=== PATIENT | female | born 1945 | race Caucasian/White ===

== ENCOUNTER → 2017-11-01 05:56 | Outpatient (CLI) | payer MEDICARE, SELFPAY ==
--- NOTE | 2017-11-01 15:13 | STRESSREP ---
Stress Test Report Date: 11/01/2017 Procedure: Pharmacologic stress nuclear imaging study Indications: Shortness of breath/dyspnea on exertion; palpitations Consent: Per the patient Procedure: The patient underwent pharmacologic (Regadenoson) evaluation with a peak heart rate of 77 bpm (51% predicted maximal heart rate) with a peak blood pressure 142/84 mmHg. The baseline ECG demonstrated normal sinus rhythm. The peak pharmacologic ECG demonstrated no obvious ECG changes. There was a rare PVC during recovery. There was no report of chest discomfort during pharmacologic infusion or recovery. The examination was discontinued secondary to completion of protocol. Impression: 1. Pharmacologic (Regadenoson) evaluation 2. Peak pharmacologic ECG with no obvious ECG changes 3. Rare PVC during recovery 4. Nuclear images pending Myocardial perfusion imaging study: Technique: The patient was injected with 11.9 mCi of technetium 99m Cardiolite and subsequently rest SPECT Cardiolite nuclear imaging was obtained in the horizontal long, vertical long, and short axis views. The patient underwent pharmacologic (Regadenoson) evaluation with a peak heart rate of 77 bpm (51% predicted maximal heart rate) with a peak blood pressure 142/84 mmHg area the patient was injected with 33.4 mCi of technetium 99m Cardiolite and subsequently stress SPECT Cardiolite nuclear imaging was obtained in the horizontal long, vertical long, and short axis views. A gated Cardiolite study at peak stress was obtained. Interpretation: Rest and stress SPECT Cardiolite nuclear imaging status post realignment, normalization, and attenuation correction, demonstrates the appearance of relative uniform tracer uptake and myocardial perfusion appearing within normal limits. There is end systolic thickening and brightening. The gated Cardiolite study demonstrates myocardial thickening and inward wall motion. The reported LVEF is 63%. Impression: 1. Rest and stress SPECT Cardiolite nuclear imaging demonstrates relative uniform tracer uptake and myocardial perfusion appearing within normal limits. 2. The gated Cardiolite study reports an LVEF of 63%. This note was generated with [employer] software. Every effort was made to ensure accuracy, however, computerized tie cutter mistakes may persist.
--- NOTE | 2017-11-01 15:22 | STRESSREP_ITS ---
Stress Test Report Date: 11/01/2017 Procedure: Pharmacologic stress nuclear imaging study Indications: Shortness of breath/dyspnea on exertion; palpitations Consent: Per the patient Procedure: The patient underwent pharmacologic (Regadenoson) evaluation with a peak heart rate of 77 bpm (51% predicted maximal heart rate) with a peak blood pressure 142 /84 mmHg. The baseline ECG demonstrated normal sinus rhythm. The peak pharmacologic ECG demonstrated no obvious ECG changes. There was a rare PVC during recovery. There was no report of chest discomfort during pharmacologic infusion or recovery. The examination was discontinued secondary to completion of protocol. Impression: 1. Pharmacologic (Regadenoson) evaluation 2. Peak pharmacologic ECG with no obvious ECG changes 3. Rare PVC during recovery 4. Nuclear images pending Myocardial perfusion imaging study: Technique: The patient was injected with 11.9 mCi of technetium 99m Cardiolite and subsequently rest SPECT Cardiolite nuclear imaging was obtained in the horizontal long, vertical long, and short axis views. The patient underwent pharmacologic (Regadenoson) evaluation with a peak heart rate of 77 bpm (51% predicted maximal heart rate) with a peak blood pressure 142/84 mmHg area the patient was injected with 33.4 mCi of technetium 99m Cardiolite and subsequently stress SPECT Cardiolite nuclear imaging was obtained in the horizontal long, vertical long, and short axis views. A gated Cardiolite study at peak stress was obtained. Interpretation: Rest and stress SPECT Cardiolite nuclear imaging status post realignment, normalization, and attenuation correction, demonstrates the appearance of relative uniform tracer uptake and myocardial perfusion appearing within normal limits. There is end systolic thickening and brightening. The gated Cardiolite study demonstrates myocardial thickening and inward wall motion. The reported LVEF is 63%. Impression: 1. Rest and stress SPECT Cardiolite nuclear imaging demonstrates relative uniform tracer uptake and myocardial perfusion appearing within normal limits. 2. The gated Cardiolite study reports an LVEF of 63%. This note was generated with [employer] software. Every effort was made to ensure accuracy, however, computerized shuttlecock assembler mistakes may persist.
== END ==
PROVIDERS: Family Provider Family Medicine; PCP Family Medicine; Visit Provider Internal Medicine Cardiovascular Disease
DX: R06.09 Other forms of dyspnea (principal); R00.2 Palpitations
CPT/HCPCS: 78452; 93017; A9500; A4216; J2785

== ENCOUNTER → 2017-11-28 08:31 | Outpatient (CLI) | payer MEDICARE, SELFPAY ==
--- NOTE | 2017-11-28 08:33 | HPBI_ITS ---
MAMMOGRAPHY - BILATERAL DIAGNOSTIC REASON FOR EXAM: Female, 71 years old. 4 month history of left breast pain at the 4 to 5:00 position of the left breast. Chronic right nipple inversion. PERTINENT HISTORY: TECHNIQUE: Digital bilateral breast aditya (3D mammographic acquisition) in the CC and MLO projections. 2-D mediolateral oblique (MLO) and craniocaudad (CC) views of both breasts were obtained. CAD: Full Field Digital Mammography with Computer Added Detection was performed. COMPARISON: Comparison is made with prior examination dated November 19, 2016 and November 18, 2015. FINDINGS: Breast Composition: There are scattered areas of fibroglandular density. There are no dominant masses or suspicious calcifications. Stable small calcified nodules in the left breast. Stable inversion of the right nipple. No other significant abnormalities are identified. There has been no significant change since the prior study. HPBI/DIAG MAMM W/CAD, BILAT IMPRESSION: Stable bilateral diagnostic mammogram. One year follow-up recommended. (A) ASSESSMENT CATEGORY: BIRADS Category 2: Benign. A letter regarding these results will be sent to the patient by the facility within 30 days. Approximately 10% of breast cancers are not detected by mammography. A normal mammogram should not delay biopsy of a clinically suspicious abnormality. Electronically Signed: Miguel Hightower MD at 10:55 EDT Tel [phone], Service support ,
--- NOTE | 2017-11-28 08:44 | US_ITS ---
STUDY: ULTRASOUND BREAST - LEFT REASON FOR EXAM: Female, 71 years old. Pain in the left breast. TECHNIQUE: Axial and longitudinal images of the LEFT breast were performed with a high resolution ultrasound transducer. COMPARISON: Comparison is made with prior mammogram done earlier today. FINDINGS: LEFT Breast: There is a 3 mm x 3 mm x 4 mm calcified nodule at the 3:00 in the breast at 3 cm from the nipple. Adjacent to this, there is a 2 mm x 2 mm x 3 mm calcified nodule. These correspond to the mammographic findings suggestive of calcified fibroadenomas. US/Breast Limited Unilateral IMPRESSION: 2 small calcified nodules are seen as described. Routine mammographic follow-up is recommended. ASSESSMENT CATEGORY: BIRADS Category 2: Benign. A letter regarding these results will be sent to the patient by the facility within 30 days. Electronically Signed: Miguel Hightower MD at 11:17 EDT Tel [phone], Service support ,
== END ==
PROVIDERS: Family Provider Family Medicine; PCP Family Medicine; Visit Provider Family Medicine
DX: N64.4 Mastodynia (principal); Z12.31 Encounter for screening mammogram for malignant neoplasm of breast
CPT/HCPCS: 76642; 77062; 77066; G0279

== ENCOUNTER 2018-02-07 14:24 | Inpatient (IN) | payer MEDICARE, SELFPAY ==
[2018-01-25 09:55] VITALS: BP 106/59; PULSE 64; RESP 16; TEMP 36.6; O2SAT 95; BMI 36.5
[2018-01-25 11:39] LABS: Hemoglobin 13.4 g/dl (12.0-15.0); Mean Corp Hgb Conc 31.9 g/gl (32-36); Mean Corpuscular Hgb 29.6 pg (27.0-32.0); Mean Corpuscular Volume 92.7 fL (81-99); Mean Platelet Vol. 10.5 fl (6.2-12.0); Platelet Count 292 K/mm3 (150-450); RBC Distribution Width CV 14.1 % (11.6-14.6); RBC Distribution Width SD 47.4 fl (35.1-43.9); Red Blood Count 4.53 M/mm3 (4.2-5.4); White Blood Count 9.4 K/mm3 (4.4-11.0)
[2018-01-25 11:40] LABS: Scan Indicated on CBC? Y/N NO
[2018-01-25 12:06] LABS: Anion Gap 7 (5-15); BUN 20 mg/dL (7-18); BUN/Creat Ratio 25.7 RATIO (10-20); Calcium,Total 9.6 mg/dL (8.5-10.1); Chloride 106 mmol/L (98-107); Creatinine, Serum 0.78 mg/dL (0.55-1.02); EST Glomerular Filtration Rate 78 mL/min (>60); Est Glom Filt Rate - Afr Amer 94 mL/min (>60); Estimated Creatinine Clearance 42.68 ml/min; Glucose 94 mg/dL (74-106); Potassium 4.4 mmol/L (3.5-5.1); Sodium Level 142 mmol/L (136-145)
--- NOTE | 2018-02-01 12:51 | CASEMGMT ---
SW called pt as pt is scheduled for surgery w/Dr. Rogers on 02/07/18, right knee replacement. Pt at present lives home w/ in a one story home, a few steps to get into the home. Pt is independent with ADL's, does not use any DME at present. Pt does have a walker for after surgery. Pt plans to return home w/the assist of her at discharge, and attend outpt PT at [facility]. Pt's will take her to appts. SW/MESERET will check in w/pt once here, postoperatively to confirm discharge plan. SIDNEY Mitchell, [employer]
[2018-02-07] VITALS (8 sets, daily range): BP systolic 125–152; BP diastolic 54–72; PULSE 65–74; RESP 14–18; TEMP 35.9–37.2; O2SAT 97–99; BMI 36.5
[2018-02-07] MEDS: oxyCODONE HCl Cr 10 MG Tablet PO (10:35)
[2018-02-07] MEDS: Celecoxib 200 MG Capsule 400 MG PO (10:35)
[2018-02-07] MEDS: Acetaminophen 500 MG Tablet 1000 MG PO ×2 (10:36→22:15)
[2018-02-07] MEDS: Cefazolin 2 GM in 0.9% Normal Saline 100 ML IV (13:12)
--- NOTE | 2018-02-07 15:07 | RAD_ITS ---
STUDY: X-RAY - RIGHT KNEE REASON FOR EXAM: Female, 72 years old. Right knee postop TECHNIQUE: 2 view(s) of the knee. COMPARISON: None. FINDINGS: There is a 3 part right knee arthroplasty. There is underlying subcutaneous gas and postoperative change. RAD/Knee 1 or 2 Views IMPRESSION: Postoperative change status post three-part right knee arthroplasty. Electronically Signed: Aditi Camarillo MD at 15:20 EDT Tel , Service support ,
[2018-02-07] MEDS: Lactated Ringers 1,000 ML 125 ML IV ×2 (15:33→23:51)
[2018-02-07] MEDS: Aspirin 325 MG Tablet PO (17:27)
[2018-02-07] MEDS: Cefazolin 1 GM/50 ML BAG IV (22:15)
[2018-02-07] MEDS: Celecoxib 200 MG Capsule PO (22:15)
[2018-02-07] MEDS: Senna/Docusate Sodium 1 Tablet 2 TABLET PO (22:15)
[2018-02-08 02:00] VITALS: BP 103/52; PULSE 63; RESP 16; TEMP 36.8; O2SAT 98
[2018-02-08] MEDS: Cefazolin 1 GM/50 ML BAG IV (05:51)
[2018-02-08] MEDS: Acetaminophen 500 MG Tablet 1000 MG PO (05:51)
[2018-02-08 06:03] LABS: Hematocrit 37.5 % (37-47); Hemoglobin 11.9 g/dl (12.0-15.0); Mean Corp Hgb Conc 31.7 g/gl (32-36); Mean Corpuscular Hgb 29.5 pg (27.0-32.0); Mean Corpuscular Volume 93.1 fL (81-99); Mean Platelet Vol. 10.4 fl (6.2-12.0); Platelet Count 244 K/mm3 (150-450); RBC Distribution Width CV 14.5 % (11.6-14.6); RBC Distribution Width SD 49.2 fl (35.1-43.9); Red Blood Count 4.03 M/mm3 (4.2-5.4); White Blood Count 11.6 K/mm3 (4.4-11.0)
[2018-02-08 06:11] LABS: Scan Indicated on CBC? Y/N NO
[2018-02-08 06:35] LABS: Anion Gap 9 (5-15); BUN 14 mg/dL (7-18); BUN/Creat Ratio 20.1 RATIO (10-20); Calcium,Total 8.9 mg/dL (8.5-10.1); Chloride 108 mmol/L (98-107); EST Glomerular Filtration Rate 88 mL/min (>60); Est Glom Filt Rate - Afr Amer 107 mL/min (>60); Estimated Creatinine Clearance 42.68 ml/min; Glucose 94 mg/dL (74-106); Potassium 3.9 mmol/L (3.5-5.1); Sodium Level 141 mmol/L (136-145)
--- NOTE | 2018-02-08 07:43 | PCM.PN.ORT ---
Subjective: Patient is resting comfortably and bedside during exam. She is starting to have some pain in the right knee. She just got up and went to the restroom and is having some nausea without vomiting. She has not had any anti-emetics. She currently denies chest pain, calf pain, shortness of breath, dizziness. She would like to consider a discharge to home later today if she is moving well with physical therapy, having adequate pain control, and is able to diminish the nausea Objective: Patient is alert and oriented ?3. No acute distress at rest. Breathing easily without respiratory distress. Inspection of dressing is with minimal bloody drainage. Negative Kari bilaterally. Without signs of DVT. Patient able to actively plantar and dorsiflex bilateral feet against resistance. Pedal pulses present and equal bilaterally. Patient is neurovascularly intact. - Physical Exam Vital Signs Temp Pulse Resp BP Pulse Ox 98.2 F 63 16 103/52 L 98 02/08/18 02:00 02/08/18 02:00 02/08/18 02:00 02/08/18 02:00 02/08/18 02:00 Oxygen Delivery Method Room Air Weight: 93.44 kg Body Mass Index (BMI) 36.5 Intake and Output for Last 24 Hours 02/06/18 02/07/18 02/08/18 23:59 23:59 23:59 Intake Total 3419 / 3419 767 / 767 Output Total 1350 / 1350 500 / 500 Balance 2069 / 2069 267 / 267 Laboratory Tests Past 24 Hrs 02/08/18 02/08/18 05:25 05:25 WBC 11.6 H RBC 4.03 L Hgb 11.9 L Hct 37.5 MCV 93.1 MCH 29.5 MCHC 31.7 L RDW 14.5 RDW Differential 49.2 H Plt Count 244 MPV 10.4 Sodium 141 Potassium 3.9 Chloride 108 H Carbon Dioxide 24.0 Anion Gap 9 BUN 14 Creatinine 0.70 Estim Creat Clear Calc 42.68 Est GFR (MDRD) Af Amer 107 Est GFR (MDRD) Non-Af 88 BUN/Creatinine Ratio 20.1 H Glucose 94 Calcium 8.9 Medical Necessity - Tobacco Use Smoking Status: Never smoker Assessment/Plan 1. Status post right TKA; postop day #1 2. OxyIR and Tylenol for pain control 3. DVT prophylaxis; bilateral teds, SCDs and begin aspirin therapy 4. Begin PT/OT; weightbearing as tolerated with a walker 5. Leukocytosis; afebrile, without acute signs of infection. Likely resulting from Decadron versus acute stress response. Anticipate resolution over the next couple days. Continue to monitor. 6. Encourage incentive spirometry 7. Discharge planning with case management. Possible discharge to home today if patient is having adequate pain control, working well with physical therapy, and nausea is controlled.
[2018-02-08] MEDS: oxyCODONE 5 MG Tablet PO (07:50)
[2018-02-08] MEDS: Aspirin 325 MG Tablet PO (07:50)
[2018-02-08] MEDS: 0.9% NaCl Peripheral Flush Adult/Peds IV (07:51)
[2018-02-08] MEDS: Ondansetron 4 MG/2 ML Vial IV (07:51)
--- NOTE | 2018-02-08 07:52 | PCM.DC.TKR ---
Discharge Diet: No Restrictions Discharge Activity: May Not Drive, May not drive while taking narcotic pain medications., Use Walker May shower in (days): 1 - Okay to shower over Mepilex dressing Ice area for (Minutes): 20 - every hour while awake. Weight Bearing Status: Weight bearing as tolerated Elevate: Operative Extremity Additional Activity Instructions:: Wear elastic stockings for 2 weeks after your surgery. See postoperative pink sheet Call your doctor if your incision/area has: Continuous Slow Oozing, Sudden Increased Bleeding, Increased Pain/ Swelling, Increased Redness, Foul Smelling Discharge Call your doctor if you observe: Fever of 101 or Higher, Coldness, Increased Pain, Numbness or Tingling, Change in Color, Chest pain, Calf discomfort, Uncontrolled pain Remove Dressing in (days):: 5 Cleanse incision/area with: Soap & Water Additional Dressing/Incision Instructions:: See postoperative pink sheet Allergies/Adverse Reactions: Allergies ciprofloxacin [From Cipro] Allergy (Verified 01/25/18 09:52) Hives ciprofloxacin HCl [From Cipro] Allergy (Verified 01/25/18 09:52) Hives erythromycin base [Erythromycin Base] Adverse Reaction (Verified 01/25/18 09:52) Vomiting hydromorphone HCl [From Dilaudid] Adverse Reaction (Verified 01/25/18 09:52) Other ANXIETY latex Adverse Reaction (Verified 01/25/18 09:52) Rash prochlorperazine edisylate [From Compazine] Adverse Reaction (Verified 01/25/18 09:52) Other ANXIETY prochlorperazine maleate [From Compazine] Adverse Reaction (Verified 01/25/18 09:52) Other Medications to take at Discharge Atenolol [Tenormin (beta juan)] 50 mg PO DAILY 06/16/13 Multivitamins,Ther W-Minerals [Multivitamin With Minerals] 1 tablet PO DAILY 05/14/14 Phenazopyridine [Pyridium] 200 mg PO DAILY 05/14/14 Cyanocobalamin [Vitamin B12] 1,000 mcg PO DAILY@0800 07/02/16 Escitalopram Oxalate [Lexapro] 10 mg PO DAILY 07/02/16 Gluc/Yemi-MSM#1/C/Reji/Ruy/Bor [Glucosamine-Chondroitin Caplet] 1 each PO DAILY 07/02/16 Sumatriptan Succinate [Imitrex] 100 mg PO .X1 PRN PRN 07/02/16 Acetaminophen [Tylenol] 1,000 mg PO Q8 #60 tab 02/08/18 Aspirin 325 mg PO BIDCM #28 tab 02/08/18 Ondansetron HCl [Zofran] 4 mg PO Q6H PRN PRN #21 tab 02/08/18 Oxycodone [Oxyir] 5 - 10 mg PO Q4H PRN PRN 7 Days #56 tablet 02/08/18 Senna/Docusate Sodium [Senokot-S] 2 tab PO BID #30 tab 02/08/18 The following prescriptions were given: Oxycodone [Oxyir] 5 - 10 mg PO Q4H PRN PRN 7 Days #56 tablet PRN Reason: Mod-Severe Pain (4-06/21) Ondansetron HCl [Zofran] 4 mg PO Q6H PRN PRN #21 tab PRN Reason: Nausea Acetaminophen [Tylenol] 1,000 mg PO Q8 #60 tab Aspirin 325 mg PO BIDCM #28 tab Senna/Docusate Sodium [Senokot-S] 2 tab PO BID #30 tab Primary Care Physician: Flaco Lee MD [Primary Care Provider] -
[2018-02-08 08:00] VITALS: BP 138/43; PULSE 76; RESP 16; TEMP 36.8; O2SAT 99
[2018-02-08] MEDS: Cyanocobalamin 500 MCG Tablet 1000 MCG PO (08:03)
[2018-02-08] MEDS: Famotidine 20 MG Tablet PO (08:04)
[2018-02-08] MEDS: Celecoxib 200 MG Capsule PO (08:04)
[2018-02-08] MEDS: Senna/Docusate Sodium 1 Tablet 2 TABLET PO (08:04)
[2018-02-08] MEDS: Atenolol 50 MG Tablet PO (08:04)
--- NOTE | 2018-02-08 09:46 | CASEMGMT ---
[facility] Face to Face with patient for initial transition planning/care coordination assessment. RN MESERET introduced self and role at [facility]. Patient sitting in chair, alert and oriented, spouse in room. Patient willing to participate in assessment and is able to answer all questions appropriately. Care providers, pharmacy, and demographics verified. See link attached. Patient wishes to discharge home and is setup with [facility] for outpatient therapy with providing transportation. Patient states she has no further needs or concerns at this time. CM to follow for discharge planning needs that may arise. Disposition Plan: Patient to discharge home with outpatient therapy, family support, and follow-up plans in place.
[2018-02-08 14:37] VITALS: BP 122/44; PULSE 64; RESP 16; TEMP 36.6; O2SAT 99
== END 2018-02-08 15:18 | disposition home or self-care (01) | DRG 470 ==
PROVIDERS: Admitting Provider Orthopaedic Surgery; Family Provider Family Medicine; PCP Family Medicine; Visit Provider Orthopaedic Surgery
PROC: 0SRC0J9 Replacement of Right Knee Joint with Synthetic Substitute, Cemented, Open Approach (ICD-10-PCS; CPT 27447; principal; 2018-02-07 12:10)
DX: M17.11 Unilateral primary osteoarthritis, right knee (principal); M79.7 Fibromyalgia; I34.1 Nonrheumatic mitral (valve) prolapse; K57.90 Diverticulosis of intestine, part unspecified, without perforation or abscess without bleeding; F32.9 Major depressive disorder, single episode, unspecified
CPT/HCPCS: 36415; 73560; 80048; 85027; 87081; 97110; 97116; 97162; 97165; 97535; C1776; J7120; A4216; J2405

== ENCOUNTER 2018-07-06 02:56 | Observation (INO) | payer MEDICARE, SELFPAY ==
[2018-07-06] VITALS (7 sets, daily range): BP systolic 120–152; BP diastolic 50–67; PULSE 75–88; RESP 16–24; TEMP 36.6–37.7; O2SAT 95–97; BMI 36.2; BMI 35.4
--- NOTE | 2018-07-06 03:20 | ED.DCSUM_ITS ---
- ER Visit Summary Date of Service: 07/06/18 Chief Complaint: Diarrhea History of Present Illness: The patient is a 72 F with diarrhea yesterday morning that improved after taking some diarrhea pills. She states that 8 PM last evening her diarrhea returned. She had multiple episodes and difficulty making it to the bathroom in time. She does report abdominal cramping as well. She just finished a 10-day course of Augmentin for URI symptoms. Physical Examination: Vital signs unremarkable. Patient's lying in bed. She appears somewhat pale. Heart is regular rate and rhythm. Lung sounds are clear. Abdomen is soft with mild diffuse tenderness. Active bowel sounds are noted throughout. There is no guarding or rebound. Test Results: CBC was a white count of 16.3 with 88% neutrophils. Chemistry studies unremarkable. LFTs normal. Emergency Department Course and Treatment: Patient is given IV fluids. On repeat examination patient remains somewhat pale. While in the room on repeat exam she urgently needs to go the restroom and is currently giving a stool sample. Patient's has history of C. difficile and states the stool smells like when he had C. difficile in the past. At this time patient be a dmitted for hydration and final stool studies. Treatment Plan: [] Disposition: Admit Impression: Diarrhea, suspect C. difficile This note was generated with [employer] dictation software. It may contain incorrect words, spelling, and punctuation that were not noted in review of the chart prior to signing ED Disposition - Plan for ED Patient: Chief Complaint: Nausea/Vomiting/Diarrhea Referrals: Flaco Lee MD [Primary Care Provider] -
[2018-07-06] MEDS: 0.9% Normal Saline 1,000 ML 1000 ML IV (03:28)
[2018-07-06 03:43] LABS: Absolute Neutrophil Count 14.3 X10^3/uL (2.0-7.7); Basophil# 0.03 X10^3/uL; Basophil% 0.2 % (0-1); Eosinophil# 0.17 X10^3/uL; Hematocrit 39.1 % (37-47); Hemoglobin 12.4 g/dl (12.0-15.0); Lymphocyte % 4.9 % (19-41); Mean Corp Hgb Conc 31.7 g/gl (32-36); Mean Corpuscular Hgb 29.4 pg (27.0-32.0); Mean Corpuscular Volume 92.7 fL (81-99); Mean Platelet Vol. 10.4 fl (6.2-12.0); Monocyte% 5.5 % (0-10); Neutrophil # 14.33 X10^3/uL (2.7-7.7); Neutrophil % 88.3 % (47-70); Platelet Count 274 K/mm3 (150-450); RBC Distribution Width CV 14.4 % (11.6-14.6); RBC Distribution Width SD 48.5 fl (35.1-43.9); Red Blood Count 4.22 M/mm3 (4.2-5.4); White Blood Count 16.3 K/mm3 (4.4-11.0)
[2018-07-06 03:54] LABS: POSITIVE COUNT NO; POSITIVE DIFFERENTIAL NO; POSITIVE MORPHOLOGY NO
[2018-07-06 03:56] LABS: AST(SGOT) 17 U/L (15-37); Alanine Aminotransfer ALT/SGPT 23 U/L (13-56); Albumin, Serum 3.2 g/dL (3.2-5.0); Alkaline Phosphatase 85 U/L (45-117); Anion Gap 7 (5-15); BUN 21 mg/dL (7-18); BUN/Creat Ratio 30.9 RATIO (10-20); Bilirubin, Direct 0.15 mg/dL (0.00-0.30); Calcium,Total 9.1 mg/dL (8.5-10.1); Chloride 106 mmol/L (98-107); Creatinine, Serum 0.68 mg/dL (0.55-1.02); EST Glomerular Filtration Rate 91 mL/min (>60); Est Glom Filt Rate - Afr Amer 110 mL/min (>60); Estimated Creatinine Clearance 44.56 ml/min; Glucose 134 mg/dL (74-106); Potassium 3.9 mmol/L (3.5-5.1); Protein, Total 7.2 g/dL (6.4-8.2); Sodium Level 141 mmol/L (136-145)
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
[2018-07-06 06:44] LABS: Magnesium 2.1 mg/dL (1.6-2.6)
[2018-07-06] MEDS: 0.9% Normal Saline 1,000 ML 150 ML IV ×2 (08:23→13:55)
[2018-07-06] MEDS: Atenolol 50 MG Tablet PO (08:23)
[2018-07-06] MEDS: Enoxaparin 40 MG/0.4 ML Syringe SC (08:24)
[2018-07-06] MEDS: Phenazopyridine 95 MG Tablet 190 MG PO (08:24)
--- NOTE | 2018-07-06 08:41 | PCM.HOSP.N ---
Hospitalist Note She is a 72 osteoarthritis, fibromyalgia, mitral valve prolapse, history of diverticulitis, anxiety depression, migraines, chronic dysuria, who recently had a 10-day course of Augmentin for an upper URI and had a couple episodes of copious foul-smelling diarrhea. Patient still has a leukocytosis however C. difficile is negative, feels like she is improving, plan to increase diet, use oral Zofran and will use some Questran to slow diarrhea for about 3 doses. Patient is already on lactobacillus. Patient will get PT OT and will try to discharge patient tomorrow. Patient agrees with treatment plan Chart is dictated with primer charging tool setter software. Errors may occur in dictation that may change providers meaning. This note was generated with [employer] dictation software. It may contain incorrect words, spelling, and punctuation that were not noted in checking the note before signing.
[2018-07-06] MEDS: Pantoprazole Sodium 20 MG Tablet PO (11:22)
[2018-07-06] MEDS: Menthol/Lanolin/Calamine/Znox 113 GM Tube 1 APPLIC TOPICAL ×4 (11:22→23:28)
[2018-07-06] MEDS: Cholestyramine/Sucrose 4 GM/PACKET PO (18:47)
[2018-07-07 02:00] VITALS: BP 134/78; PULSE 77; RESP 16; TEMP 37.3; O2SAT 97
[2018-07-07] MEDS: 0.9% Normal Saline 1,000 ML 150 ML IV ×2 (02:54→03:00)
[2018-07-07 06:21] LABS: Absolute Neutrophil Count 5.3 X10^3/uL (2.0-7.7); Basophil# 0.03 X10^3/uL; Basophil% 0.3 % (0-1); Eosinophil# 0.62 X10^3/uL; Eosinophils% 7.2 % (0-5); Hematocrit 32.7 % (37-47); Hemoglobin 10.3 g/dl (12.0-15.0); Lymphocyte % 17.4 % (19-41); Mean Corp Hgb Conc 31.5 g/gl (32-36); Mean Corpuscular Hgb 29.8 pg (27.0-32.0); Mean Corpuscular Volume 94.5 fL (81-99); Mean Platelet Vol. 11.2 fl (6.2-12.0); Monocyte% 13.9 % (0-10); Neutrophil # 5.28 X10^3/uL (2.7-7.7); Neutrophil % 61.1 % (47-70); Platelet Count 225 K/mm3 (150-450); RBC Distribution Width CV 14.7 % (11.6-14.6); RBC Distribution Width SD 47.9 fl (35.1-43.9); Red Blood Count 3.46 M/mm3 (4.2-5.4); White Blood Count 8.6 K/mm3 (4.4-11.0)
[2018-07-07 06:25] LABS: ALB/GLOB Ratio 0.7 RATIO (0.9-2.4); AST(SGOT) 20 U/L (15-37); Alanine Aminotransfer ALT/SGPT 28 U/L (13-56); Albumin, Serum 2.5 g/dL (3.2-5.0); Alkaline Phosphatase 70 U/L (45-117); Anion Gap 7 (5-15); BUN 8 mg/dL (7-18); BUN/Creat Ratio 14.3 RATIO (10-20); Calcium,Total 8.2 mg/dL (8.5-10.1); Chloride 112 mmol/L (98-107); Creatinine, Serum 0.56 mg/dL (0.55-1.02); EST Glomerular Filtration Rate 114 mL/min (>60); Est Glom Filt Rate - Afr Amer 137 mL/min (>60); Estimated Creatinine Clearance 44.56 ml/min; Globulin 3.4 g/dL (2.2-4.2); Glucose 96 mg/dL (74-106); Potassium 3.4 mmol/L (3.5-5.1); Protein, Total 5.9 g/dL (6.4-8.2); Sodium Level 144 mmol/L (136-145)
[2018-07-07 06:26] LABS: POSITIVE COUNT NO; POSITIVE DIFFERENTIAL NO; POSITIVE MORPHOLOGY NO
[2018-07-07 06:32] LABS: Phosphorus 2.7 mg/dL (2.5-4.9)
[2018-07-07] MEDS: Cholestyramine/Sucrose 4 GM/PACKET PO (06:53)
[2018-07-07 07:45] VITALS: BP 144/69; PULSE 76; RESP 18; TEMP 36.7; O2SAT 99
--- NOTE | 2018-07-07 08:08 | DCINST_ITS ---
- Discharge Diagnoses Current Active Problems: Current Active and Chronic Problems Diarrhea (Acute) Anxiety and depression (Chronic) Diverticulosis (Chronic) Fibromyalgia (Chronic) You will use the following diet at home:: Regular - Recommend multiple small meals 5 times a day Your food should be the consistency of: Regular Your liquids should be the consistency of: Regular/Thin Discharge Activity: Return to Normal Activity Call your doctor if you observe: Fever of 101 or Higher, Shortness of breath, Fainting spells, Chest pain, Calf discomfort Allergies/Adverse Reactions: Allergies ciprofloxacin [From Cipro] Allergy (Verified 01/25/18 09:52) Hives ciprofloxacin HCl [From Cipro] Allergy (Verified 01/25/18 09:52) Hives erythromycin base [Erythromycin Base] Adverse Reaction (Verified 01/25/18 09:52) Vomiting hydromorphone HCl [From Dilaudid] Adverse Reaction (Verified 01/25/18 09:52) Other ANXIETY latex Adverse Reaction (Verified 01/25/18 09:52) Rash prochlorperazine edisylate [From Compazine] Adverse Reaction (Verified 01/25/18 09:52) Other ANXIETY prochlorperazine maleate [From Compazine] Adverse Reaction (Verified 01/25/18 09:52) Other Medications to take at Discharge Atenolol [Tenormin (beta juan)] 50 mg PO DAILY 06/16/13 Multivitamins,Ther W-Minerals [Multivitamin With Minerals] 1 tablet PO DAILY 05/14/14 Phenazopyridine [Pyridium] 200 mg PO DAILY 05/14/14 Escitalopram Oxalate [Lexapro] 10 mg PO DAILY 07/02/16 Gluc/Yemi-MSM#1/C/Reji/Ruy/Bor [Glucosamine-Chondroitin Caplet] 1 each PO DAILY 07/02/16 Sumatriptan Succinate [Imitrex] 100 mg PO .X1 PRN PRN 07/02/16 Acetaminophen [Tylenol] 1,000 mg PO Q8 #60 tab 02/08/18 Cholecalciferol (Vitamin D3) [Vitamin D3] 1,000 unit PO DAILY 07/06/18 Omeprazole [Prilosec] 20 mg PO DAILY 07/06/18 Wheat Dextrin [Benefiber] 1 each PO QHS 07/06/18 Cholestyramine/Aspartame [Cholestyramine Light Packet] 4 gm PO BID PRN PRN #4 powd.pack 07/07/18 Lactobacillus Acidophilus [Acidophilus] 1 tablet PO 4X/DAY #30 tablet 07/07/18 The following prescriptions were given: Cholestyramine/Aspartame [Cholestyramine Light Packet] 4 gm PO BID PRN PRN #4 powd.pack PRN Reason: Diarrhea Lactobacillus Acidophilus [Acidophilus] 1 tablet PO 4X/DAY #30 tablet Primary Care Physician: Flaco Lee MD [Primary Care Provider] - Please follow up with your Primary Care Physician in: 1-2 weeks Test Results: Test results from this visit will be discussed in further detail at your follow- up appointment, if applicable. Proposed Discharge Date: 07/07/18 - after kcl
--- NOTE | 2018-07-07 08:08 | PCM.DC.SUM ---
Discharge Date and Diagnosis - Problem List Patient Problems: Active and Suspected Problems Diarrhea (Acute) Date of Admission: 07/06/18 Date of Discharge: 07/07/18 - Primary Discharge Diagnosis Active and Suspected Problems Diarrhea (Acute) - Secondary Discharge Diagnosis Chronic Problems Anxiety and depression (Chronic) Diverticulosis (Chronic) Fibromyalgia (Chronic) Mitral valve prolapse syndrome (Chronic) Dysuria (Chronic) Migraine (Chronic) Hospital Course and Treatment Patient is a 72-year-old white female with osteoarthritis, fibromyalgia, mitral valve prolapse, history of diverticulitis, anxiety depression, migraines, chronic dysuria, who recently had a 10-day course of Augmentin for an upper URI and had a couple episodes of copious foul-smelling diarrhea. C. difficile was negative, culture for stool was negative, patient was given several doses of Questran and diarrhea has stopped. Patient is still having large amount of gas, patient is recommended to continue with a regular diet, take a probiotic, will give some Questran in case patient has continued diarrhea home. Patient's potassium is slightly low will give several doses of p.o. potassium before discharge. Patient to follow-up with PCP as an outpatient in 1-2 weeks. Patient most likely had diarrhea associated with antibiotic use, versus a viral gastroenteritis, no signs or symptoms of diverticulitis, leukocytosis resolved on second day most likely secondary to stress-induced. Medications reviewed with the patient. Risks, benefits, alternatives, side effects, potential complications and dangers of medications discussed. Patient wishes to utilize these agents despite risk. A signed medical consent/advisement form regarding narcotic medications and a side medication agreement are located in the patient's chart. Chart is dictated with geographic information systems engineer software. Errors may occur in dictation that may change providers meaning. This note was generated with [employer] dictation software. It may contain incorrect words, spelling, and punctuation that were not noted in checking the note before signing. Operations: None Procedures: None Summary of Care Provided: The patient is a 72 year old F [] Patient Problems: Active and Suspected Problems Diarrhea (Acute) Subjective: Patient's diarrhea has stopped, is able to tolerate diet has no new complaints. - Physical Exam General: Alert, Oriented x3, Cooperative HEENT: Atraumatic, PERRLA Oral: Moist Mucosa, No Gingival or Mucosal Lesions/ Ulcerations Neck: Supple, No JVD, Trachea Midline Lungs: Clear to auscultation, Normal air movement, No rhonchi Cardiovascular: Regular rate, Regular Rhythm, Normal S1, Normal S2 Abdomen: Bowel Sounds Present, Soft, Non Tender, Non-Distended, No Hepato-splenomegaly Extremities: No clubbing, No cyanosis, No edema Skin: No rashes, No breakdown Musculoskeletal: No Tenderness to Palpation of Joints or Extremities, No Muscle Wasting Lymphatic: No Cervical, Supraclavicular, or Inguinal Adenopathy Neurological: Cranial nerves II-XII grossly intact, Neuro grossly intact Psych/Mental Status: Normal Affect, Appropriate, Agitated Vital Signs Temp Pulse Resp BP Pulse Ox 98.1 F 76 18 144/69 H 99 07/07/18 07:45 07/07/18 07:45 07/07/18 07:45 07/07/18 07:45 07/07/18 07:45 Oxygen Delivery Method Room Air Weight: 93.468 kg Body Mass Index (BMI) 35.4 Intake and Output for Last 24 Hours 07/05/18 07/06/18 07/07/18 23:59 23:59 23:59 Intake Total 2907 / 2907 2467 / 2467 Balance 2907 / 2907 2467 / 2467 Microbiology Past 72 Hours 07/06/18 03:55 Enteric Bacteriology - Final Stool 07/06/18 03:55 C. difficile DNA Amplification - Final Stool 07/06/18 03:55 Stool Lactoferrin - Final Stool Laboratory Tests Past 24 Hrs 07/07/18 07/07/18 07/07/18 05:44 05:44 05:44 WBC 8.6 RBC 3.46 L Hgb 10.3 L Hct 32.7 L MCV 94.5 MCH 29.8 MCHC 31.5 L RDW 14.7 H RDW Differential 47.9 H Plt Count 225 MPV 11.2 Immature Gran % (Auto) 0.100 Neut % (Auto) 61.1 Lymph % (Auto) 17.4 L [place] % (Auto) 13.9 H Eos % (Auto) 7.2 H Baso % (Auto) 0.3 Absolute Neuts (auto) 5.3 Absolute Lymphs (auto) 1.50 Total Counted Not Reportable Sodium 144 Potassium 3.4 L Chloride 112 H Carbon Dioxide 25.0 Anion Gap 7 BUN 8 Creatinine 0.56 Estim Creat Clear Calc 44.56 Est GFR (MDRD) Af Amer 137 Est GFR (MDRD) Non-Af 114 BUN/Creatinine Ratio 14.3 Glucose 96 Calcium 8.2 L Phosphorus 2.7 Magnesium 2.0 Total Bilirubin 0.40 AST 20 ALT 28 Alkaline Phosphatase 70 Total Protein 5.9 L Albumin 2.5 L Globulin 3.4 Albumin/Globulin Ratio 0.7 L Discharge Diet: No Restrictions - Low-sodium diet 5 meals small a day Discharge Activity: Return to Normal Activity Call your doctor if you observe: Fever of 101 or Higher, Shortness of breath, Fainting spells, Chest pain, Calf discomfort Home Medications: Medications to take at Discharge Atenolol [Tenormin (beta juan)] 50 mg PO DAILY 06/16/13 Multivitamins,Ther W-Minerals [Multivitamin With Minerals] 1 tablet PO DAILY 05/14/14 Phenazopyridine [Pyridium] 200 mg PO DAILY 05/14/14 Escitalopram Oxalate [Lexapro] 10 mg PO DAILY 07/02/16 Gluc/Yemi-MSM#1/C/Reji/Ruy/Bor [Glucosamine-Chondroitin Caplet] 1 each PO DAILY 07/02/16 Sumatriptan Succinate [Imitrex] 100 mg PO .X1 PRN PRN 07/02/16 Acetaminophen [Tylenol] 1,000 mg PO Q8 #60 tab 02/08/18 Cholecalciferol (Vitamin D3) [Vitamin D3] 1,000 unit PO DAILY 07/06/18 Omeprazole [Prilosec] 20 mg PO DAILY 07/06/18 Wheat Dextrin [Benefiber] 1 each PO QHS 07/06/18 Cholestyramine/Aspartame [Cholestyramine Light Packet] 4 gm PO BID PRN PRN #4 powd.pack 07/07/18 Lactobacillus Acidophilus [Acidophilus] 1 tablet PO 4X/DAY #30 tablet 07/07/18 Following Prescrptions Were Given to Patient: Cholestyramine/Aspartame [Cholestyramine Light Packet] 4 gm PO BID PRN PRN #4 powd.pack PRN Reason: Diarrhea Lactobacillus Acidophilus [Acidophilus] 1 tablet PO 4X/DAY #30 tablet Primary Care Physician: Flaco Lee MD [Primary Care Provider] - Please follow up with your Primary Care Physician in: 1-2 weeks Disposition: Home Patient Condition:: Good Medical Necessity - Tobacco Use Smoking Status: Never smoker Tobacco Use: Non-smoker Meaningful Use Info Meaningful Use Diagnoses (Choose all that apply): None applicable Code Visit Inpatient E&M: 73234 Disch Hosp
[2018-07-07] MEDS: Acetaminophen 325 MG Tablet 650 MG PO (08:44)
[2018-07-07] MEDS: Pantoprazole Sodium 20 MG Tablet PO (09:36)
[2018-07-07] MEDS: Phenazopyridine 95 MG Tablet 190 MG PO (09:36)
[2018-07-07] MEDS: Atenolol 50 MG Tablet PO (09:36)
[2018-07-07] MEDS: Menthol/Lanolin/Calamine/Znox 113 GM Tube 1 APPLIC TOPICAL (09:37)
== END 2018-07-07 10:26 | disposition home or self-care (01) ==
LOC: ED 04:34 → MS3 05:15 → ED 05:41 → MS3 06:59
PROVIDERS: Admitting Provider Family Medicine; Emergency Provider Emergency Medicine; Family Provider Family Medicine; PCP Family Medicine; Visit Provider Internal Medicine
DX: R19.7 Diarrhea, unspecified (principal); M79.7 Fibromyalgia; K57.90 Diverticulosis of intestine, part unspecified, without perforation or abscess without bleeding; F41.9 Anxiety disorder, unspecified; F32.9 Major depressive disorder, single episode, unspecified; Z79.899 Other long term (current) drug therapy; G43.909 Migraine, unspecified, not intractable, without status migrainosus; M19.90 Unspecified osteoarthritis, unspecified site; K21.9 Gastro-esophageal reflux disease without esophagitis; R30.0 Dysuria; E66.9 Obesity, unspecified; Z68.35 Body mass index [BMI] 35.0-35.9, adult; Z71.3 Dietary counseling and surveillance
CPT/HCPCS: 36415; 80048; 80053; 80076; 83630; 83735; 84100; 85025; 87177; 87209; 87493; 87506; 96360; 96361; 96372; 97802; 99218; 99282; J7030; A4216; G0378

== ENCOUNTER 2018-07-08 23:45 | Observation (INO) | payer MEDICARE, SELFPAY ==
[2018-07-08 23:45] VITALS: BP 162/71; PULSE 70; RESP 16; TEMP 36.6; O2SAT 96; BMI 32.5
[2018-07-09] VITALS (9 sets, daily range): BP systolic 124–155; BP diastolic 60–75; PULSE 67–78; RESP 16–18; TEMP 36.7–37.2; O2SAT 94–98; BMI 36.3
[2018-07-09] MEDS: 0.9% Normal Saline 1,000 ML 1000 ML IV (00:17)
[2018-07-09 01:00] LABS: Absolute Neutrophil Count 8.6 X10^3/uL (2.0-7.7); Basophil# 0.07 X10^3/uL; Basophil% 0.6 % (0-1); Eosinophil# 0.49 X10^3/uL; Eosinophils% 4.1 % (0-5); Hematocrit 36.8 % (37-47); Lymphocyte % 12.6 % (19-41); Mean Corp Hgb Conc 32.6 g/gl (32-36); Monocyte# 1.29 X10^3/uL; Monocyte% 10.8 % (0-10); Neutrophil # 8.56 X10^3/uL (2.7-7.7); Neutrophil % 71.6 % (47-70); Platelet Count 87 K/mm3 (150-450); RBC Distribution Width CV 14.1 % (11.6-14.6); RBC Distribution Width SD 46.8 fl (35.1-43.9)
[2018-07-09 01:01] LABS: POSITIVE COUNT NO; POSITIVE DIFFERENTIAL NO; POSITIVE MORPHOLOGY NO
[2018-07-09 01:16] LABS: ALB/GLOB Ratio 0.7 RATIO (0.9-2.4); AST(SGOT) 29 U/L (15-37); Alanine Aminotransfer ALT/SGPT 30 U/L (13-56); Albumin, Serum 2.9 g/dL (3.2-5.0); Alkaline Phosphatase 77 U/L (45-117); Anion Gap 9 (5-15); BUN 9 mg/dL (7-18); BUN/Creat Ratio 16.1 RATIO (10-20); Calcium,Total 8.8 mg/dL (8.5-10.1); Chloride 108 mmol/L (98-107); Creatinine, Serum 0.56 mg/dL (0.55-1.02); EST Glomerular Filtration Rate 113 mL/min (>60); Est Glom Filt Rate - Afr Amer 137 mL/min (>60); Estimated Creatinine Clearance 44.56 ml/min; Globulin 4.1 g/dL (2.2-4.2); Glucose 103 mg/dL (74-106); Sodium Level 138 mmol/L (136-145)
--- NOTE | 2018-07-09 01:48 | ED.RN ---
pt's iv fluid stopped flowing, assessed iv site. pt c/o pain when flushing. 20g in left ac discontinued. this RN started 2nd iv in right ac 22g.
--- NOTE | 2018-07-09 03:20 | ED.DCSUM_ITS ---
- ER Visit Summary Date of Service: 07/09/18 Chief Complaint: Diarrhea History of Present Illness: The patient is a 72 F who is had a couple of days of diarrhea. She was admitted this week for the same symptom. She was diagnosed with bacterial gastroenteritis. Her C. difficile was negative. She was disc harged home with cholestyramine. She has taken a couple doses of that but today she had about 20 episodes of nonbloody diarrhea. Prior to all of this she had Augmentin and she was taking acidophilus with it. She does have a history of diverticulitis in the past. Is not had fevers. She denies having any significant abdominal pain with this. Physical Examination: Vital signs reviewed. HEENT exam unremarkable. Heart is regular rate and rhythm without murmurs. Lungs are clear to auscultation. Abdomen is soft and nontender. Extremities reveal no edema. Skin exam normal. Neurologic exam normal. Test Results: [] Emergency Department Course and Treatment: I reviewed her visit from earlier this week. Her C. difficile was negative. She did have some WBCs in her stools. Her laboratory studies today reveal a white blood cell count of 12. Her creatinine is normal. Patient was given a liter of normal saline. She is still having diarrhea here. I feel we should admit her because she cannot make it to the bathroom. She was discussed with the hospitalist for admission. She will be assigned observation. Treatment Plan: [] Disposition: Admit to observation Impression: Diarrhea This note was generated with [employer] dictation software. It may contain incorrect words, spelling, and punctuation that were not noted in review of the chart prior to signing ED Disposition - Plan for ED Patient: Chief Complaint: Diarrhea Referrals: Flaco Lee MD [Primary Care Provider] -
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
[2018-07-09] MEDS: Dicyclomine 10 MG Capsule 20 MG PO ×3 (05:26→16:25)
[2018-07-09] MEDS: Diphenoxylate/Atrop 1 Tablet 2 TABLET PO ×4 (05:26→22:12)
[2018-07-09] MEDS: 0.9% Normal Saline 1,000 ML 125 ML IV ×2 (05:28→14:06)
[2018-07-09] MEDS: 0.9% NaCl Peripheral Flush Adult/Peds IV ×2 (06:52→09:21)
[2018-07-09 07:07] LABS: Absolute Neutrophil Count 8.3 X10^3/uL (2.0-7.7); Basophil# 0.05 X10^3/uL; Basophil% 0.4 % (0-1); Eosinophil# 0.38 X10^3/uL; Eosinophils% 3.4 % (0-5); Hematocrit 34.9 % (37-47); Lymphocyte % 11.6 % (19-41); Mean Corp Hgb Conc 31.5 g/gl (32-36); Mean Corpuscular Hgb 29.1 pg (27.0-32.0); Mean Corpuscular Volume 92.3 fL (81-99); Mean Platelet Vol. 10.5 fl (6.2-12.0); Monocyte# 1.21 X10^3/uL; Monocyte% 10.8 % (0-10); Neutrophil # 8.25 X10^3/uL (2.7-7.7); Neutrophil % 73.6 % (47-70); Platelet Count 253 K/mm3 (150-450); RBC Distribution Width CV 14.3 % (11.6-14.6); RBC Distribution Width SD 47.7 fl (35.1-43.9); Red Blood Count 3.78 M/mm3 (4.2-5.4); White Blood Count 11.2 K/mm3 (4.4-11.0)
[2018-07-09 07:16] LABS: POSITIVE COUNT NO; POSITIVE DIFFERENTIAL NO; POSITIVE MORPHOLOGY NO
[2018-07-09 07:41] LABS: Anion Gap 7 (5-15); BUN 8 mg/dL (7-18); BUN/Creat Ratio 14.6 RATIO (10-20); Calcium,Total 8.5 mg/dL (8.5-10.1); Chloride 110 mmol/L (98-107); Creatinine, Serum 0.55 mg/dL (0.55-1.02); EST Glomerular Filtration Rate 116 mL/min (>60); Est Glom Filt Rate - Afr Amer 140 mL/min (>60); Estimated Creatinine Clearance 44.56 ml/min; Glucose 96 mg/dL (74-106); Potassium 3.5 mmol/L (3.5-5.1); Sodium Level 142 mmol/L (136-145)
[2018-07-09] MEDS: Multivitamins,Ther W-Minerals Tablet 1 TABLET PO (07:59)
[2018-07-09] MEDS: Phenazopyridine 95 MG Tablet 190 MG PO (07:59)
[2018-07-09] MEDS: Escitalopram Oxalate 10 MG Tablet PO (07:59)
[2018-07-09] MEDS: Pantoprazole Sodium 20 MG Tablet PO (08:00)
[2018-07-09] MEDS: Atenolol 50 MG Tablet PO (08:00)
[2018-07-09] MEDS: Ondansetron 4 MG/2 ML Vial IV (09:21)
--- NOTE | 2018-07-09 09:23 | CT_ITS ---
STUDY: CTA ABDOMEN AND PELVIS WITHOUT CONTRAST REASON FOR EXAM: Female, 72 years old. Diarrhea. Evaluate for ischemic colitis. RADIATION DOSAGE (If Supplied By Facility): CTDIvol = ( 36.14 ) mGy, DLP = ( 1394.23 ) mGycm TECHNIQUE: Transaxial images were obtained through the abdomen and pelvis with oral contrast, and with intravenous contrast. Sagittal and coronal images were reconstructed. Individualized dose optimization techniques were used for this CT. COMPARISON: None. FINDINGS: There is a granuloma noted in the left lung base. The lung bases are otherwise clear. The heart is normal in size. There are mitral valvular calcifications. The patient is status post cholecystectomy. The liver, spleen, pancreas, adrenal glands and right kidney are within normal limits. There is a 1.5 cm indeterminate lesion in the lower pole of the left kidney (image 73 series 2) which may represent a complex cyst. There is no bowel obstruction. There is long segment bowel wall thickening in the sigmoid colon which is consistent with colitis. There are additional small foci of bowel wall thickening in the terminal ileum (for example image 105 series 2), cecum (for example image 45 series 601) and transverse colon (image 28 series 601). This likely represents enterocolitis. There is no evidence of abdominal aortic aneurysm or dissection. The celiac artery, superior mesenteric artery, bilateral renal arteries and inferior mesenteric artery are patent. There is no abdominal or pelvic free air, free fluid or lymphadenopathy. There are no destructive osseous lesions. There is a left femoral intramedullary fidelia. CT/CT ANGIO ABD&PEL W/O&W/DYE IMPRESSION: Normal CT angiogram of the abdomen and pelvis. Long segment of bowel wall thickening in the sigmoid colon which is consistent with colitis. Additional small foci of bowel wall thickening in the terminal ileum, cecum and transverse colon. This likely represents enterocolitis. Follow-up after treatment is recommended to exclude an underlying colonic mass. 1.5 cm indeterminate lesion in the lower pole of the left kidney which may represent a complex cyst. If indicated, a follow-up ultrasound can be performed. Electronically Signed: Juan R Bowser, at 12:32 EDT Tel , Service support ,
--- NOTE | 2018-07-09 09:27 | PCM.HOSP.N ---
Hospitalist Note Patient is a 72-year-old white female with history of osteoarthritis fibromyalgia mitral valve prolapse diverticulitis, anxiety depression and migraines, chronic dysuria who presents once again for diarrhea. Patient had a 10-day course of Augmentin for upper URI and she had loose foul-smelling stools. Patient has been ruled out of all infectious causes, even ova and parasite C. difficile, and was discharged after stools have subsided. Patient went home and was good for 24 hours and then recurrence of diarrhea even with Questran was started. Patient is doing much better with oral antidiarrheals however still having a few episodes of diarrhea. I have discussed it with patient, believe will be a good idea to do a CT of the abdomen and pelvis to rule out possible ischemic colitis, will get that done if patient continues to have diarrhea may need to consult surgery for colonoscopy. Chart is dictated with film and video graphics designer software. Errors may occur in dictation that may change providers meaning. This note was generated with Direct[employer] dictation software. It may contain incorrect words, spelling, and punctuation that were not noted in checking the note before signing.
--- NOTE | 2018-07-09 09:30 | CCHN_ITS ---
Hospitalist Note Patient is a 72-year-old white female with history of osteoarthritis fibromyalgia mitral valve prolapse diverticulitis, anxiety depression and migraines, chronic dysuria who presents once again for diarrhea. Patient had a 10-day course of Augmentin for upper URI and she had loose foul-smelling stools. Patient has been ruled out of all infectious causes, even ova and parasite C. difficile, and was discharged after stools have subsided. Patient went home and was good for 24 hours and then recurrence of diarrhea even with Questran was st arted. Patient is doing much better with oral antidiarrheals however still having a few episodes of diarrhea. I have discussed it with patient, believe will be a good idea to do a CT of the abdomen and pelvis to rule out possible ischemic colitis, will get that done if patient continues to have diarrhea may need to consult surgery for colonoscopy. Chart is dictated with scuba dive training instructor software. Errors may occur in dictation that may change providers meaning. This note was generated with Delf[employer] dictation software. It may contain incorrect words, spelling, and punctuation that were not noted in checking the note before signing.
[2018-07-09] MEDS: Acetaminophen 325 MG Tablet 650 MG PO (14:05)
[2018-07-09] MEDS: metroNIDAZOLE 500 MG Tablet PO (14:31)
[2018-07-09] MEDS: Sucralfate 1 GM Tablet PO ×2 (16:22→22:09)
[2018-07-10] MEDS: 0.9% Normal Saline 1,000 ML 125 ML IV ×2 (01:45→05:18)
[2018-07-10 05:10] VITALS: BP 141/67; PULSE 76; RESP 18; TEMP 36.7; O2SAT 94
[2018-07-10] MEDS: Diphenoxylate/Atrop 1 Tablet 2 TABLET PO ×2 (05:18→09:14)
[2018-07-10 06:22] LABS: Absolute Neutrophil Count 4.8 X10^3/uL (2.0-7.7); Basophil# 0.09 X10^3/uL; Basophil% 1.1 % (0-1); Eosinophil# 0.72 X10^3/uL; Eosinophils% 8.5 % (0-5); Hematocrit 33.6 % (37-47); Hemoglobin 10.5 g/dl (12.0-15.0); Lymphocyte % 21.2 % (19-41); Mean Corp Hgb Conc 31.3 g/gl (32-36); Mean Corpuscular Hgb 29.4 pg (27.0-32.0); Mean Corpuscular Volume 94.1 fL (81-99); Mean Platelet Vol. 10.5 fl (6.2-12.0); Monocyte# 1.05 X10^3/uL; Monocyte% 12.4 % (0-10); Neutrophil # 4.82 X10^3/uL (2.7-7.7); Neutrophil % 56.7 % (47-70); Platelet Count 241 K/mm3 (150-450); RBC Distribution Width CV 14.5 % (11.6-14.6); Red Blood Count 3.57 M/mm3 (4.2-5.4); White Blood Count 8.5 K/mm3 (4.4-11.0)
[2018-07-10 06:39] LABS: POSITIVE COUNT NO; POSITIVE DIFFERENTIAL NO; POSITIVE MORPHOLOGY NO
[2018-07-10 06:45] LABS: BUN 8 mg/dL (7-18); Creatinine, Serum 0.58 mg/dL (0.55-1.02); Estimated Creatinine Clearance 44.56 ml/min; Glucose 80 mg/dL (74-106)
[2018-07-10 06:46] LABS: ALB/GLOB Ratio 0.7 RATIO (0.9-2.4); AST(SGOT) 69 U/L (15-37); Alanine Aminotransfer ALT/SGPT 60 U/L (13-56); Albumin, Serum 2.6 g/dL (3.2-5.0); Alkaline Phosphatase 92 U/L (45-117); Anion Gap 8 (5-15); BUN/Creat Ratio 13.9 RATIO (10-20); Calcium,Total 8.4 mg/dL (8.5-10.1); Chloride 111 mmol/L (98-107); EST Glomerular Filtration Rate 110 mL/min (>60); Est Glom Filt Rate - Afr Amer 133 mL/min (>60); Globulin 3.6 g/dL (2.2-4.2); Phosphorus 3.4 mg/dL (2.5-4.9); Potassium 3.9 mmol/L (3.5-5.1); Protein, Total 6.2 g/dL (6.4-8.2); Sodium Level 143 mmol/L (136-145)
[2018-07-10 06:50] VITALS: O2SAT 96
[2018-07-10] MEDS: Acetaminophen 325 MG Tablet 650 MG PO (07:27)
[2018-07-10] MEDS: Sucralfate 1 GM Tablet PO ×2 (07:27→11:55)
[2018-07-10] MEDS: metroNIDAZOLE 500 MG Tablet PO ×2 (07:28→11:55)
[2018-07-10] MEDS: Multivitamins,Ther W-Minerals Tablet 1 TABLET PO (08:20)
[2018-07-10] MEDS: 0.9% NaCl Peripheral Flush Adult/Peds IV (08:20)
[2018-07-10] MEDS: Ondansetron 4 MG/2 ML Vial IV (08:20)
[2018-07-10 08:24] VITALS: BP 142/68; PULSE 73; RESP 16; TEMP 37; O2SAT 95
[2018-07-10 08:26] VITALS: RESP 16
[2018-07-10] MEDS: Phenazopyridine 95 MG Tablet 190 MG PO (09:15)
[2018-07-10] MEDS: Atenolol 50 MG Tablet PO (09:15)
[2018-07-10] MEDS: Pantoprazole Sodium 20 MG Tablet PO (09:15)
[2018-07-10] MEDS: Escitalopram Oxalate 10 MG Tablet PO (09:15)
[2018-07-10 11:44] VITALS: BP 140/60; PULSE 65; RESP 16; TEMP 37; O2SAT 95
[2018-07-10 11:46] VITALS: PULSE 65
--- NOTE | 2018-07-10 12:40 | DCINST_ITS ---
You will use the following diet at home:: No restrictions Your food should be the consistency of: Regular Your liquids should be the consistency of: Regular/Thin Discharge Activity: Return to Normal Activity Call your doctor if you observe: Fever of 101 or Higher, - - Ascending abdominal pain. Intractable diarrhea. Allergies/Adverse Reactions: Allergies ciprofloxacin [From Cipro] Allergy (Verified 07/08/18 23:47) Hives ciprofloxacin HCl [From Cipro] Allergy (Verified 07/08/18 23:47) Hives dicyclomine [From Bentyl] Adverse Reaction (Verified 07/09/18 22:15) Other MAKES ME FEEL FUNNY DROWSY FOR ENTIRE DAY AFTER 1 DOSE. erythromycin base [Erythromycin Base] Adverse Reaction (Verified 07/08/18 23:47) Vomiting hydromorphone HCl [From Dilaudid] Adverse Reaction (Verified 07/09/18 04:32) anxiety latex Adverse Reaction (Verified 07/08/18 23:47) Rash prochlorperazine edisylate [From Compazine] Adverse Reaction (Verified 07/09/18 04:32) anxiety prochlorperazine maleate [From Compazine] Adverse Reaction (Verified 07/09/18 04:32) anxiety Medications to take at Discharge Atenolol [Tenormin (beta juan)] 50 mg PO DAILY 06/16/13 Multivitamins,Ther W-Minerals [Multivitamin With Minerals] 1 tablet PO DAILY 05/14/14 Phenazopyridine [Pyridium] 200 mg PO DAILY 05/14/14 Escitalopram Oxalate [Lexapro] 10 mg PO DAILY 07/02/16 Gluc/Yemi-MSM#1/C/Reji/Ruy/Bor [Glucosamine-Chondroitin Caplet] 1 each PO DAILY 07/02/16 Sumatriptan Succinate [Imitrex] 100 mg PO .X1 PRN PRN 07/02/16 Acetaminophen [Tylenol] 1,000 mg PO Q8 #60 tab 02/08/18 Cholecalciferol (Vitamin D3) [Vitamin D3] 1,000 unit PO DAILY 07/06/18 Omeprazole [Prilosec] 20 mg PO DAILY 07/06/18 Wheat Dextrin [Benefiber] 1 each PO QHS 07/06/18 Lactobacillus Acidophilus [Acidophilus] 1 tablet PO 4X/DAY #30 tablet 10/26/18 Metronidazole [Flagyl] 500 mg PO TIDCM #18 tablet 07/10/18 Sucralfate [Carafate] 1 gm PO 1HR_ACHS #24 tablet 07/10/18 The following prescriptions were given: Sucralfate [Carafate] 1 gm PO 1HR_ACHS #24 tablet Metronidazole [Flagyl] 500 mg PO TIDCM #18 tablet Primary Care Physician: Flaco Lee MD [Primary Care Provider] - Within 2 Weeks Test Results: Test results from this visit will be discussed in further detail at your follow- up appointment, if applicable. Please Follow Up With: John Henderson MD - Neurology for chronic headaches. When: 1-2 months Proposed Discharge Date: 07/10/18
--- NOTE | 2018-07-10 12:40 | PCM.DC.SUM ---
Discharge Date and Diagnosis - Problem List Patient Problems: Active and Suspected Problems Colitis (Acute) Date of Admission: 07/09/18 Date of Discharge: 07/10/18 - Primary Discharge Diagnosis Active and Suspected Problems Colitis (Acute) - Secondary Discharge Diagnosis Chronic Problems Anxiety and depression (Chronic) Diverticulosis (Chronic) Fibromyalgia (Chronic) Mitral valve prolapse syndrome (Chronic) Dysuria (Chronic) Migraine (Chronic) Hospital Course and Treatment Imaging Results: Clinical Impression(s) from Imaging Studies Abdomen/Pelvis CTA 07/09/18 09:23 IMPRESSION: Normal CT angiogram of the abdomen and pelvis. Long segment of bowel wall thickening in the sigmoid colon which is consistent with colitis. Additional small foci of bowel wall thickening in the terminal ileum, cecum and transverse colon. This likely represents enterocolitis. Follow-up after treatment is recommended to exclude an underlying colonic mass. 1.5 cm indeterminate lesion in the lower pole of the left kidney which may represent a complex cyst. If indicated, a follow-up ultrasound can be performed. Electronically Signed: Juan R Junenicki, at 12:32 EDT Tel , Service support , Operations: None Procedures: None Summary of Care Provided: The patient is a 72 year old F since with recurrent diarrhea. Previously, patient had been on antibiotics for an upper respiratory infection and then subsequently developed diarrhea. Patient had a CAT scan that showed sigmoid colitis. Patient was started on metronidazole as well as Carafate. Patient was not started on Cipro given allergy to Cipro., Patient states that her diarrhea has improved but still ongoing. Patient will continue with the Carafate as well as metronidazole for a total of 7 days. Patient previously was checked for C. difficile on the that was negative. Patient informed this could be related with antibiotics or could been just a concomitant viral infection but patient will continue with antibiotics. I did discuss with patient that her previous upper respiratory infection may been viral and that antibiotics likely of no use but I did state that I did not have a definitive information to confirm that but did made her aware that upper respiratory infections generally are viral. I did not fold her for taking the antibiotics but just expressed that she may need take caution in regards to additionally ask in the future. I did inform patient that she was here will be at risk for developing C. difficile 3 months after antibiotics. Patient's big complaint today was headaches. Patient states she gets headaches every day he takes some caffeine Excedrin to help with that and occasional sumatriptan for intractable headaches which is about once a month. But headaches overall are daily and she usually wakes up with it. Patient is never been evaluated for sleep apnea. I did advise her to follow-up with neurology for further headache management to see if there would be some prophylactic medications that she could take or to be evaluated for sleep apnea etc. [] Patient Problems: Active and Suspected Problems Colitis (Acute) - Physical Exam General: Alert, Cooperative, No apparent distress HEENT: Atraumatic, Normocephalic Oral: Moist Mucosa, No Gingival or Mucosal Lesions/ Ulcerations Neck: No Nodes, Thyroid Normal Size and Texture Abdomen: Bowel Sounds Present, Soft, Non Tender, Non-Distended, No Hepato-splenomegaly Extremities: No edema, No Calf Tenderness Vital Signs Temp Pulse Resp BP Pulse Ox 37.0 C 65 16 140/60 H 95 07/10/18 11:44 07/10/18 11:46 07/10/18 11:44 07/10/18 11:44 07/10/18 11:44 Oxygen Delivery Method Room Air Weight: 95.9 kg Body Mass Index (BMI) 36.3 Intake and Output for Last 24 Hours 07/08/18 07/09/18 07/10/18 23:59 23:59 23:59 Intake Total 3131 / 3131 1894 / 1894 Output Total 1550 / 1550 800 / 800 Balance 1581 / 1581 1094 / 1094 Laboratory Tests Past 24 Hrs 07/10/18 07/10/18 05:50 05:50 WBC 8.5 RBC 3.57 L Hgb 10.5 L Hct 33.6 L MCV 94.1 MCH 29.4 MCHC 31.3 L RDW 14.5 RDW Differential 50.0 H Plt Count 241 MPV 10.5 Immature Gran % (Auto) 0.100 Neut % (Auto) 56.7 Lymph % (Auto) 21.2 [place] % (Auto) 12.4 H Eos % (Auto) 8.5 H Baso % (Auto) 1.1 H Absolute Neuts (auto) 4.8 Absolute Lymphs (auto) 1.80 Total Counted Not Reportable Sodium 143 Potassium 3.9 Chloride 111 H Carbon Dioxide 24.0 Anion Gap 8 BUN 8 Creatinine 0.58 Estim Creat Clear Calc 44.56 Est GFR (MDRD) Af Amer 133 Est GFR (MDRD) Non-Af 110 BUN/Creatinine Ratio 13.9 Glucose 80 Calcium 8.4 L Phosphorus 3.4 Magnesium 2.0 Total Bilirubin 0.40 AST 69 H ALT 60 H Alkaline Phosphatase 92 Total Protein 6.2 L Albumin 2.6 L Globulin 3.6 Albumin/Globulin Ratio 0.7 L Discharge Diet: No Restrictions Discharge Activity: Return to Normal Activity Call your doctor if you observe: Fever of 101 or Higher, - - Ascending abdominal pain. Intractable diarrhea. Home Medications: Medications to take at Discharge Atenolol [Tenormin (beta juan)] 50 mg PO DAILY 06/16/13 Multivitamins,Ther W-Minerals [Multivitamin With Minerals] 1 tablet PO DAILY 05/14/14 Phenazopyridine [Pyridium] 200 mg PO DAILY 05/14/14 Escitalopram Oxalate [Lexapro] 10 mg PO DAILY 07/02/16 Gluc/Yemi-MSM#1/C/Reji/Ruy/Bor [Glucosamine-Chondroitin Caplet] 1 each PO DAILY 07/02/16 Sumatriptan Succinate [Imitrex] 100 mg PO .X1 PRN PRN 07/02/16 Acetaminophen [Tylenol] 1,000 mg PO Q8 #60 tab 02/08/18 Cholecalciferol (Vitamin D3) [Vitamin D3] 1,000 unit PO DAILY 07/06/18 Omeprazole [Prilosec] 20 mg PO DAILY 07/06/18 Wheat Dextrin [Benefiber] 1 each PO QHS 07/06/18 Lactobacillus Acidophilus [Acidophilus] 1 tablet PO 4X/DAY #30 tablet 07/07/18 Metronidazole [Flagyl] 500 mg PO TIDCM #18 tablet 07/10/18 Sucralfate [Carafate] 1 gm PO 1HR_ACHS #24 tablet 07/10/18 Following Prescrptions Were Given to Patient: Sucralfate [Carafate] 1 gm PO 1HR_ACHS #24 tablet Metronidazole [Flagyl] 500 mg PO TIDCM #18 tablet Primary Care Physician: Flaco Lee MD [Primary Care Provider] - Within 2 Weeks Please Follow Up With: John Henderson MD - Neurology for chronic headaches. When: 1-2 months Disposition: Home Minutes spent on discharge:: 35 Patient Condition:: Good Medical Necessity - Tobacco Use Smoking Status: Never smoker Tobacco Use: Non-smoker Meaningful Use Info Meaningful Use Diagnoses (Choose all that apply): None applicable Code Visit OBSV E&M: 99701 Observation care discharge
== END 2018-07-10 14:23 | disposition home or self-care (01) ==
LOC: ED 07-09 03:36 → MS3 07-09 03:45
PROVIDERS: Internal Medicine; Admitting Provider Family Medicine; Emergency Provider Emergency Medicine; Family Provider Family Medicine; PCP Family Medicine
DX: K52.9 Noninfective gastroenteritis and colitis, unspecified (principal); F41.9 Anxiety disorder, unspecified; F32.9 Major depressive disorder, single episode, unspecified; G43.909 Migraine, unspecified, not intractable, without status migrainosus; M79.7 Fibromyalgia; Z79.899 Other long term (current) drug therapy; M19.90 Unspecified osteoarthritis, unspecified site; D69.6 Thrombocytopenia, unspecified; K21.9 Gastro-esophageal reflux disease without esophagitis; R30.0 Dysuria; E66.9 Obesity, unspecified; Z68.36 Body mass index [BMI] 36.0-36.9, adult; Z71.3 Dietary counseling and surveillance
CPT/HCPCS: 36415; 74174; 80048; 80053; 83735; 84100; 85025; 96361; 96374; 96376; 97802; 99218; 99285; J7030; Q9967; A4216; G0378; J2405

== ENCOUNTER → 2018-12-06 10:39 | Outpatient (CLI) | payer MEDICARE, SELFPAY ==
[2018-11-09 13:57] VITALS: BMI 36.1
--- NOTE | 2018-12-06 10:41 | ECHOD_ITS ---
Reason For Study: Murmur Procedure This was a 2D Doppler, Color Flow transthoracic echocardiogram. The exam was of adequate technical quality. Exam performed in department. Left Ventricle Normal LV size. Left ventricular systolic function is normal. The estimated ejection fraction is 60 %. No regional wall motion abnormalities noted. Right Ventricle Normal RV size. Normal systolic function. Atria The left atrium is moderately enlarged. Normal right atrium. No doppler evidence for ASD. Mitral Valve There is moderate to severe mitral annular calcification. Extension of the mitral annular calcification onto the posterior mitral valve leaflet. Mild diffuse mitral valve thickening. Mild mitral valve prolapse. Moderate (2+) mitral valve insufficiency. Tricuspid Valve Normal tricuspid valve. Mild tricuspid valve insufficiency. Right ventricular systolic pressure estimated to be 33 mmHg. Aortic Valve Trisinus/trileaflet aortic valve. Normal aortic valve. Pulmonic Valve The pulmonic valve is not well visualized. Trivial pulmonic valve insufficiency. Great Vessels Normal sized aortic root. Pericardium/Pleural No pericardial effusion. MMode/2D Measurements & Calculations LVIDd: 5.3 cm IVSd: 1.4 cm Ao root diam: 2.8 cm LVIDs: 4.1 cm LVPWd: 1.0 cm RVDd: 3.4 cm FS: 23.6 % LAV(MOD-bp): 84.4 ml LVAd ap4: 22.3 cm2 SV(MOD-sp4): 36.7 ml LAV(MOD-bp) Indexed: 44.6 ml/m2 EDV(MOD-sp4): 61.9 ml LAV(MOD-sp2): 77.9 ml EDV(sp4-el): 62.3 ml LAV(MOD-sp4): 89.7 ml LVAs ap4: 12.8 cm2 ESV(MOD-sp4): 25.2 ml ESV(sp4-el): 25.0 ml EF(MOD-sp4): 59.3 % EF(sp4-el): 59.9 % SV(sp4-el): 37.3 ml LA A4 area: 25.7 cm2 LA dimension(2D): 4.5 cm RA A4 area: 12.3 cm2 Doppler Measurements & Calculations MV E max surinder: 94.0 cm/sec Lat Peak E' Surinder: 7.2 cm/sec Med Peak E' Surinder: 5.5 cm/sec MV A max surinder: 56.2 cm/sec E/E' lat: 13.1 E/E' med: 17.1 MV E/A: 1.7 Ao V2 max: 115.8 cm/sec LV V1 max: 80.8 cm/sec PA V2 max: 74.2 cm/sec Ao max P.4 mmHg LV V1 max P.6 mmHg Ao V2 mean: 83.6 cm/sec Ao mean P.0 mmHg Ao V2 VTI: 27.3 cm PI end-d surinder: 115.6 cm/sec TR max surinder: 274.0 cm/sec TR max P.0 mmHg Interpretation Summary Left ventricular systolic function is normal. The estimated ejection fraction is 60 %. The left atrium is moderately enlarged. There is moderate to severe mitral annular calcification. Extension of the mitral annular calcification onto the posterior mitral valve leaflet. Mild diffuse mitral valve thickening. Mild mitral valve prolapse. Moderate (2+) mitral valve insufficiency. Mild tricuspid valve insufficiency. Trivial pulmonic valve insufficiency. Right ventricular systolic pressure estimated to be 33 mmHg. Transmitral diastolic flow velocities suggest diastolic dysfunction (pseudonormal pattern). Ordering Physician: Rodrigo Paul Referring Physician: Flaco Lee Performed By: Hina San, DYANACS, RVT
== END ==
PROVIDERS: Family Provider Family Medicine; PCP Family Medicine; Referring Provider Internal Medicine Cardiovascular Disease; Visit Provider Internal Medicine Cardiovascular Disease
DX: I34.0 Nonrheumatic mitral (valve) insufficiency (principal)
CPT/HCPCS: 93306

== ENCOUNTER → 2018-12-27 14:12 | Outpatient (CLI) | payer MEDICARE, SELFPAY ==
[2018-11-09 13:57] VITALS: BMI 36.1
--- NOTE | 2018-12-27 14:14 | BI_ITS ---
MAMMOGRAPHY - BILATERAL SCREENING REASON FOR EXAM: Female, 73 years old. Routine annual screening examination. PERTINENT HISTORY: Non-contributory. History of bilateral excisional breast biopsies. Inversion of the right nipple. TECHNIQUE: Digital bilateral breast aditya (3D mammographic acquisition) in the CC and MLO projections. 2-D mediolateral oblique (MLO) and craniocaudad (CC) views of both breasts were obtained. CAD: Full Field Digital Mammography with Computer Added Detection was performed. COMPARISON: Comparison is made with prior study dated November 28, 2017 and November 19, 2016. FINDINGS: Breast Composition: There are scattered areas of fibroglandular density. There are no dominant masses or suspicious calcifications. Stable appearance of the calcified nodules in the left breast. Once again, there is inversion of the right nipple. Stable bilateral axillary lymph nodes. No other significant abnormalities are identified. There has been no significant change since the prior study. BI/SCREENING MAMM (CAD), BILAT IMPRESSION: Stable bilateral screening mammogram. Yearly follow-up mammogram recommended. (A) ASSESSMENT CATEGORY: BIRADS Category 2: Benign. A letter regarding these results will be sent to the patient by the facility within 30 days. Approximately 10% of breast cancers are not detected by mammography. A normal mammogram should not delay biopsy of a clinically suspicious abnormality. [id number] Electronically Signed: Miguel Hightower, at 15:18 EDT , Service support ,
== END ==
PROVIDERS: Family Provider Family Medicine; PCP Family Medicine; Referring Provider Family Medicine; Visit Provider Family Medicine
DX: Z12.31 Encounter for screening mammogram for malignant neoplasm of breast (principal)
CPT/HCPCS: 77063; 77067

== ENCOUNTER → 2020-02-19 | Outpatient (CLI) | payer MEDICARE, SELFPAY ==
[2019-05-09 11:04] VITALS: BMI 35.7
--- NOTE | 2020-02-19 10:02 | BI_ITS ---
MAMMOGRAPHY - BILATERAL SCREENING REASON FOR EXAM: Female, 74 years old. Routine annual screening examination. PERTINENT HISTORY: Non-contributory. Occasional left breast pain. History of prior bilateral excisional breast biopsies. TECHNIQUE: Digital bilateral breast teja (3D mammographic acquisition) in the CC and MLO projections. 2-D mediolateral oblique (MLO) and craniocaudad (CC) views of both breasts were obtained. CAD: Full Field Digital Mammography with Computer Added Detection was performed. COMPARISON: Comparison is made with prior examination dated December 27, 2018 and November 28, 2017. FINDINGS: Breast Composition: There are scattered areas of fibroglandular density. There are no dominant masses or suspicious calcifications. Stable calcified nodules in the left breast. Stable benign-appearing bilateral axillary nodes. No other significant abnormalities are identified. There has been no significant change since the prior study. BI/SCREEN MAMM (CAD) W/TEJA BILAT IMPRESSION: Stable bilateral screening mammogram. Yearly follow-up mammogram recommended. (A) ASSESSMENT CATEGORY: BIRADS Category 2: Benign. A letter regarding these results will be sent to the patient by the facility within 30 days. Approximately 10% of breast cancers are not detected by mammography. A normal mammogram should not delay biopsy of a clinically suspicious abnormality. [id number] Electronically Signed: Miguel Hightower, at 11:09 EDT , Service support ,
== END | disposition home or self-care (01) ==
PROVIDERS: PCP Family Medicine; Referring Provider Family Medicine; Visit Provider Family Medicine
DX: Z12.31 Encounter for screening mammogram for malignant neoplasm of breast (principal)
CPT/HCPCS: 77063; 77067

== ENCOUNTER → 2020-06-04 17:55 | Outpatient (CLI) | payer MEDICARE, SELFPAY ==
[2020-03-26 11:35] VITALS: BMI 36.3
== END ==
PROVIDERS: PCP Family Medicine; Referring Provider Nurse Practitioner Primary Care; Visit Provider Nurse Practitioner Primary Care
DX: Z03.818 Encounter for observation for suspected exposure to other biological agents ruled out (principal)
CPT/HCPCS: 87635; C9803; U0003

== ENCOUNTER → 2021-02-25 08:47 | Outpatient (CLI) | payer MEDICARE, SELFPAY ==
[2020-03-26 11:35] VITALS: BMI 36.3
--- NOTE | 2021-02-25 08:54 | ECHOD_ITS ---
Reason For Study: MVP Procedure This was a 2D Doppler, Color Flow transthoracic echocardiogram. The exam was of adequate technical quality. Exam performed in department. Left Ventricle Normal LV size. Left ventricular systolic function is normal. The estimated ejection fraction is 60 %. No regional wall motion abnormalities noted. Right Ventricle Normal RV size. Normal systolic function. Atria The left atrium is moderately enlarged. Normal right atrium. Small secundum atrial septal defect vs. patent foramen ovale. Mitral Valve There is moderate to severe mitral annular calcification. Extension of the mitral annular calcification onto the posterior mitral valve leaflet. Mild diffuse mitral valve thickening. Moderate mitral valve prolapse. Moderate (2+) mitral valve insufficiency. Tricuspid Valve Normal tricuspid valve. Mild tricuspid valve insufficiency. Right ventricular systolic pressure estimated to be 40 mmHg. Aortic Valve Trisinus/trileaflet aortic valve. Normal aortic valve. Pulmonic Valve The pulmonic valve is not well visualized. Trivial pulmonic valve insufficiency. Great Vessels The aortic root is not well visualized. Pericardium/Pleural No pericardial effusion. MMode/2D Measurements & Calculations LVIDd: 5.6 cm IVSd: 1.2 cm LA dimension: 4.6 cm LVIDs: 4.0 cm LVPWd: 0.94 cm FS: 28.6 % LAV(MOD-bp): 98.9 ml LA A4 area: 25.9 cm2 RA A4 area: 13.9 cm2 LAV(MOD-bp) Indexed: 50.6 ml/m2 LAV(MOD-sp2): 92.1 ml LAV(MOD-sp4): 92.5 ml Time Measurements MV dec time: 0.14 sec Doppler Measurements & Calculations MV E max surinder: 79.3 cm/sec Lat Peak E' Surinder: 11.2 cm/sec Med Peak E' Surinder: 5.6 cm/sec MV A max surinder: 61.1 cm/sec E/E' lat: 7.1 E/E' med: 14.1 MV E/A: 1.3 MV V2 max: 115.5 cm/sec MV P1/2t max surinder: 115.5 cm/sec Ao V2 max: 93.8 cm/sec MV max P.3 mmHg MV P1/2t: 80.9 msec Ao max P.5 mmHg MV V2 mean: 52.5 cm/sec MV dec slope: 418.1 cm/sec2 MV mean P.4 mmHg MVA(P1/2t): 2.7 cm2 MV V2 VTI: 31.9 cm LV V1 max: 83.0 cm/sec PA V2 max: 80.9 cm/sec TR max surinder: 294.2 cm/sec LV V1 max P.8 mmHg TR max P.6 mmHg ECHO/Echo Complete Interpretation Summary Left ventricular systolic function is normal. The estimated ejection fraction is 60 %. The left atrium is moderately enlarged. There is moderate to severe mitral annular calcification. Extension of the mitral annular calcification onto the posterior mitral valve l eaflet. Mild diffuse mitral valve thickening. Moderate mitral valve prolapse. Moderate (2+) mitral valve insufficiency. Mild tricuspid valve insufficiency. Trivial pulmonic valve insufficiency. Right ventricular systolic pressure estimated to be 40 mmHg. Transmitral diastolic flow velocities suggest diastolic dysfunction (pseudonorm al pattern). Ordering Physician: Rodrigo Paul Referring Physician: Flaco Lee Performed By: Sudhakar Mullins RCS
== END ==
PROVIDERS: PCP Family Medicine; Referring Provider Internal Medicine Cardiovascular Disease; Visit Provider Internal Medicine Cardiovascular Disease
DX: I34.0 Nonrheumatic mitral (valve) insufficiency (principal); I34.1 Nonrheumatic mitral (valve) prolapse
CPT/HCPCS: 93306

== ENCOUNTER → 2021-03-09 15:04 | Outpatient (CLI) | payer MEDICARE, SELFPAY ==
[2020-03-26 11:35] VITALS: BMI 36.3
--- NOTE | 2021-03-09 15:06 | BI_ITS ---
MAMMOGRAPHY - BILATERAL SCREENING REASON FOR EXAM: Female, 75 years old. Routine annual screening examination. PERTINENT HISTORY: Non-contributory. History of prior bilateral breast biopsies. TECHNIQUE: Digital bilateral breast teja (3D mammographic acquisition) in the CC and MLO projections. 2-D mediolateral oblique (MLO) and craniocaudad (CC) views of both breasts were obtained. CAD: Full Field Digital Mammography with Computer Added Detection was performed. COMPARISON: Comparison is made with prior study dated 02/19/2020 and 12/27/2018. FINDINGS: Breast Composition: There are scattered areas of fibroglandular density. There are no dominant masses or suspicious calcifications. Stable retraction of the right areola with prior breast biopsy. Stable calcified nodules in the left breast. Stable small bilateral axillary lymph nodes. No other significant abnormalities are identified. There has been no significant change since the prior study. BI/SCRN MAMM (CAD)W/TEJA BILAT IMPRESSION: Stable bilateral screening mammogram. Yearly follow-up mammogram recommended. (A) ASSESSMENT CATEGORY: BIRADS Category 2: Benign. A letter regarding these results will be sent to the patient by the facility within 30 days. Approximately 10% of breast cancers are not detected by mammography. A normal mammogram should not delay biopsy of a clinically suspicious abnormality. [id number] Electronically Signed: Miguel Hightower MD at 15:52 EDT , Service support ,
== END ==
PROVIDERS: PCP Family Medicine; Referring Provider Family Medicine; Visit Provider Family Medicine
DX: Z12.31 Encounter for screening mammogram for malignant neoplasm of breast (principal)
CPT/HCPCS: 77063; 77067

== ENCOUNTER 2021-12-02 09:51 | Outpatient (CLI) | payer MEDICARE, SELFPAY ==
[2021-12-02 10:35] LABS: Erythrocyte Sedimentation Rate 25 mm/hr (0-30)
[2021-12-02 10:55] LABS: CRP 4.95 mg/L (0.0-3.0); LDH 185 U/L (84-246)
[2021-12-07 01:06] LABS: Anti-Centromere B Ab <0.2 AI (0.0-0.9); Anti-Chromatin <0.2 AI (0.0-0.9); Anti-Jo <0.2 AI (0.0-0.9); Anti-Scleroderma-70 AB <0.2 AI (0.0-0.9); Beef <0.10 kU/L (Class 0); Corn <0.10 kU/L (Class 0); Egg, Whole <0.10 kU/L (Class 0); Milk (Cow) <0.10 kU/L (Class 0); Peanut <0.10 kU/L (Class 0); Pork <0.10 kU/L (Class 0); RNP Ab 0.3 AI (0.0-0.9); SJOGREN'S Anti-SS-A test 0.2 AI (0.0-0.9); SJOGREN'S Anti-SS-B test < 0.2 AI (0.0-0.9); Smith Ab <0.2 AI (0.0-0.9); Soybean <0.10 kU/L (Class 0); Wheat <0.10 kU/L (Class 0)
[2021-12-07 08:17] LABS: Anti-dsDNA Ab 1 IU/mL (0-9); Chocolate <0.10 kU/L (Class 0)
[2021-12-07 10:07] LABS: Angiotensin Convert Enzyme 25 U/L (14-82); Cytoplasmic Ab (C-ANCA) <1:20 titer (Neg:<1:20); Endomysial Antibody IgA Negative (Negative); Immunoglobulin A 326 mg/dL (64-422); Immunoglobulin E 26 IU/mL (6-495); Immunoglobulin G 1304 mg/dL (586-1602)
[2021-12-07 15:54] LABS: Immunoglobulin M 47 mg/dL (26-217); Perinuclear Ab (P-ANCA) <1:20 titer (Neg:<1:20); t-Transglutaminase IgA 6 U/mL (0-3)
== END 2021-12-02 23:59 | disposition home or self-care (01) ==
LOC: LAB 09:53
PROVIDERS: PCP Family Medicine; Referring Provider Internal Medicine Gastroenterology; Visit Provider Internal Medicine Gastroenterology
DX: R19.7 Diarrhea, unspecified (principal)
CPT/HCPCS: 36415; 82164; 82784; 82785; 83516; 83615; 85652; 86003; 86005; 86140; 86225; 86235; 86255; 86256

== ENCOUNTER 2022-02-24 09:52 | Day surgery (SDC) | payer MEDICARE, SELFPAY ==
[2022-02-24] VITALS (7 sets, daily range): BP systolic 103–135; BP diastolic 57–92; PULSE 61–67; RESP 16; TEMP 36.2–36.3; O2SAT 96–97; BMI 33.5
--- NOTE | 2022-02-24 | COLBX_PTH ---
PATIENT: SAHARA CRUZ LOC: EN U#:[id number] AGE/SX: 76/F ROOM: RE02/24/[address]: Dr. Lawrence Dvaid DO : 1945 BED: DIS: 02/24/2022 SPEC #: [id number] RECD: 02/24/22 14:54 STATUS: ZAINAB RECandido #: [id number] FREDERICK: 02/24/22 00:[address]: Lawrence David DEPT: SURGICAL PATHOLOGY RECD BY: Erickson Rea ENTERED: 02/25/22 08:40 SP TYPE: COLON BX OTHR DR: Dr. Flaco Lee MD Tissues: A - Duodenum, NOS B - Duodenum, NOS C - Gastric mucous membrane D - Esophageal mucous membrane E - Ileum, NOS F - COLON BIOPSY Procedures: Special Stain Group II Surgery Specimen Level IV Alcian Blue/PAS (control) HEADER OPERATION: Colonoscopy with biopsy, EGD with biopsy ([facility]) PRE-OP DIAGNOSIS: Diarrhea TISSUE SUBMITTED: A ? Duodenum biopsy, B ? Duodenal bulb biopsy, C ? Gastric polyp, D ? Distal esophagus biopsy, E ? Terminal ileum biopsy, F ? Random colon biopsy MICROSCOPIC DIAGNOSIS A. Duodenum, biopsy: Fragments of small intestinal mucosa, no pathologic diagnosis. B. Duodenal bulb, biopsy: Fragments of duodenal mucosa, no pathologic diagnosis. C. Gastric polyp, biopsy: Fundic gland polyp. Focal mild chronic gastritis. See comment. D. Distal esophagus, biopsy: Fragments of gastroesophageal mucosa with moderate chronic inflammation. Intestinal metaplasia (goblet cell metaplasia) not identified. See comment. E. Terminal ileum, biopsy: Fragments of small intestinal mucosa, no pathologic diagnosis. F. Colon, random biopsy: Fragments of colonic mucosa, no pathologic diagnosis. SJ:carmen 02/26/2022 COMMENT C. The results of immunohistochemistry for Helicobacter pylori will be reported separately ([id number]). D. Alcian blue/PAS stain with matched control is used in the evaluation of the specimen. MICROSCOPIC DESCRIPTION Slides are reviewed. GROSS DESCRIPTION A - Received in fixative is one container labeled with the patient's name and designated duodenum biopsy. The specimen consists of multiple irregular fragments of light phoenix soft tissue that in aggregate measure 1 x 0.5 x 0.1 cm. The specimen is totally submitted in one cassette. B - Received in fixative is one container labeled with the patient's name and designated duodenal bulb biopsy. The specimen consists of multiple irregular fragments of light phoenix soft tissue that in aggregate measure 1.5 x 0.3 x 0.1 cm. The specimen is totally submitted in one cassette. C - Received in fixative is one container labeled with the patient's name and designated gastric polyp. The specimen consists of one irregular fragment of light phoenix soft tissue that measures 0.4 x 0.2 x 0.1 cm. The specimen is totally submitted in one cassette. D - Received in fixative is one container labeled with the patient's name and designated distal esophagus biopsy. The specimen consists of multiple irregular fragments of light phoenix soft tissue that in aggregate measure 0.8 x 0.4 x 0.1 cm. The specimen is totally submitted in one cassette. E - Received in fixative is one container labeled with the patient's name and designated terminal ileum biopsy. The specimen consists of two irregular fragments of light phoenix soft tissue that in aggregate measure 0.6 x 0.3 x 0.1 cm. The specimen is totally submitted in one cassette. F - Received in fixative is one container labeled with the patient's name and designated random colon biopsy. The specimen consists of multiple irregular fragments of light phoenix soft tissue that in aggregate measure 2 x 0.8 x 0.1 cm. The specimen is totally submitted in one cassette. / SJ:rg 02/25/2022 TC:3 CPT: 23535 x6, 42736
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
[2022-02-24] MEDS: Lactated Ringers 1,000 ML 15 ML IV (10:38)
--- NOTE | 2022-02-24 11:15 | IMM_PTH ---
PATIENT: SAHARA CRUZ LOC: EN U#:[id number] AGE/SX: 76/F ROOM: RE02/24/[address]: Dr. Lawrence David DO : 1945 BED: DIS: 02/24/2022 SPEC #: [id number] RECD: 02/25/22 13:29 STATUS: ZAINAB REQ #: [id number] FREDERICK: 02/24/22 11:[address]: Lawrence David DEPT: IMMUNOHISTOCHEMISTRY RECD BY: Melodie Marshall ENTERED: 02/25/22 13:29 SP TYPE: IMMUNO OTHR DR: Dr. Flaco Lee MD Tissues: C - Stomach, NOS Procedures: H Pylori (initial) PHYSICIAN & INSTITUTION [place] [id number] SPECIMEN INFORMATION: Tissue Source: C ? Gastric polyp Clinical Info: Diarrhea Specimen Number: [id number] CPT code: 34338 METHODOLOGY: Deparaffinized sections of prefer/formalin-fixed tissue or PAP/DQ stained slides are incubated with monoclonal/polyclonal antibodies/oligonucleotide probes. Localization is made via biotin free immunoperoxidase method. Appropriate controls are performed and reacted as expected. Results on target cell population are indicated in the following table: RESULTS: ANTIBODY / CLONE RESULT Block C H Pylori (polyclonal) negative These tests were developed and their performance characteristics determined by [facility]. They may not have been cleared or approved by the U.S. Food and Drug Administration. The FDA has determined that such clearance or approval is not necessary. The above immunohistochemical/dualISH markers are ordered and reviewed by the Pathologist. INTERPRETATION: C. Gastric polyp, biopsy: Negative for Helicobacter pylori organisms. SJ:carmen 03/02/2022
--- NOTE | 2022-02-24 12:06 | OP.EGD_ITS ---
Patient Name: Marie Meléndez Procedure Date: 02/24/2022 11:05 AM Date of : 1945 Age: 76 Procedure: Upper GI endoscopy Indications: Epigastric abdominal pain, Failure to respond to medical treatment Providers: Lawrence David DO Referring MD: Lawrence David DO Medicines: Monitored Anesthesia Care Patient Profile: This is a 76 year old female. Refer to note in patient chart for documentation of history and physical. Patient has symptoms. Complications: No immediate complications. Procedure: Pre-Anesthesia Assessment: - Prior to the procedure, a History and Physical was performed, and patient medications and allergies were reviewed. The risks and benefits of the procedure and the sedation options and risks were discussed with the patient. All questions were answered and informed consent was obtained. Patient identification and proposed procedure were verified by the physician in the pre-procedure area. Mental Status Examination: alert and oriented. Airway Examination: normal oropharyngeal airway and neck mobility. Respiratory Examination: clear to auscultation. CV Examination: normal. Prophylactic Antibiotics: The patient does not require prophylactic antibiotics. Prior Anticoagulants: The patient has taken no previous anticoagulant or antiplatelet agents. After reviewing the risks and benefits, the patient was deemed in satisfactory condition to undergo the procedure. The anesthesia plan was to use moderate sedation / analgesia (conscious sedation). Immediately prior to administration of medications, the patient was re-assessed for adequacy to receive sedatives. The heart rate, respiratory rate, oxygen saturations, blood pressure, adequacy of pulmonary ventilation, and response to care were monitored throughout the procedure. The physical status of the patient was re-assessed after the procedure. After obtaining informed consent, the endoscope was passed under direct vision. Throughout the procedure, the patient's blood pressure, pulse, and oxygen saturations were monitored continuously. The colonoscope was introduced through the mouth, and advanced to the third part of duodenum. The upper GI endoscopy was accomplished without difficulty. The patient tolerated the procedure well. Scope In: 11:21:49 AM Scope Out: 11:29:41 AM Total Procedure Duration Time 0 hours 7 minutes 52 seconds Findings: The Z-line was irregular and was found 39 cm from the incisors. Biopsies were taken with a cold forceps for histology. Verification of patient identification for the specimen was done. Estimated blood loss was minimal. The entire examined stomach was normal. Patchy moderately erythematous mucosa without active bleeding and with no stigmata of bleeding was found in the duodenal bulb and in the first portion of the duodenum. Biopsies were taken with a cold forceps for histology. Verification of patient identification for the specimen was done. Estimated blood loss was minimal. Biopsies were taken with a cold forceps for histology. Verification of patient identification for the specimen was done. Estimated blood loss was minimal. A single 5 mm sessile polyp with no stigmata of recent bleeding was found on the greater curvature of the stomach. The polyp was removed with a cold snare. Resection and retrieval were complete. Verification of patient identification for the specimen was done. Estimated blood loss was minimal. Impression: - Z-line irregular, 39 cm from the incisors. Biopsied. - Normal stomach. - Erythematous duodenopathy. Biopsied. Recommendation: - Discharge patient to home. - Resume previous diet. - Continue present medications. - Await pathology results. Procedure Code(s): --- Professional --- 52511, Esophagogastroduodenoscopy, flexible, transoral; with removal of tumor(s), polyp(s), or other lesion(s) by snare technique 37404, 59,51, Esophagogastroduodenoscopy, flexible, transoral; with biopsy, single or multiple CPT copyright 2017 [employer]. All rights reserved. The codes documented in this report are preliminary and upon community engagement specialist review may be revised to meet current compliance requirements. Lawrence David DO 02/24/2022 12:06:22 PM This report has been signed electronically. Number of Addenda: 1 Note Initiated On: 02/24/2022 11:05 AM Addendum Number: 1 Addendum Date: 06/15/2022 6:19:06 AM MAC was used as sedation for this procedure. Lawrence David DO 06/15/2022 6:19:14 AM This report has been signed electronically.
--- NOTE | 2022-02-24 12:07 | OP.CCLET_ITS ---
06/15/2022 Flaco Lee Re : Upper GI endoscopy procedure for Marie Meléndez Dear Rosa This procedure was performed on Thursday, February 24, 2022. My impressions and recommendations are as follows: Impressions : - Z-line irregular, 39 cm from the incisors. Biopsied. - Normal stomach. - Erythematous duodenopathy. Biopsied. Recommendations : - Discharge patient to home. - Resume previous diet. - Continue present medications. - Await pathology results. My findings are described in the full procedure note, which is enclosed. If I can be of further assistance, please feel free to contact me at . Sincerely, Lawrence David, 02/24/2022 12:06:22 PM This report has been signed electronically.
--- NOTE | 2022-02-24 12:12 | OP.COLON_ITS ---
Patient Name: Marie Meléndez Procedure Date: 02/24/2022 11:30 AM Date of : 1945 Age: 76 Procedure: Colonoscopy Indications: Clinically significant diarrhea of unexplained origin Providers: Lawrence David DO Referring MD: Lawrence David DO Medicines: Monitored Anesthesia Care Patient Profile: This is a 76 year old female. Refer to note in patient chart for documentation of history and physical. Patient has symptoms. Last Colonoscopy: 3 years ago. Complications: No immediate complications. Procedure: Pre-Anesthesia Assessment: - Prior to the procedure, a History and Physical was performed, and patient medications and allergies were reviewed. The risks and benefits of the procedure and the sedation options and risks were discussed with the patient. All questions were answered and informed consent was obtained. Patient identification and proposed procedure were verified by the physician in the pre-procedure area. Mental Status Examination: alert and oriented. Airway Examination: normal oropharyngeal airway and neck mobility. Respiratory Examination: clear to auscultation. CV Examination: normal. Prophylactic Antibiotics: The patient does not require prophylactic antibiotics. Prior Anticoagulants: The patient has taken no previous anticoagulant or antiplatelet agents. After reviewing the risks and benefits, the patient was deemed in satisfactory condition to undergo the procedure. The anesthesia plan was to use moderate sedation / analgesia (conscious sedation). Immediately prior to administration of medications, the patient was re-assessed for adequacy to receive sedatives. The heart rate, respiratory rate, oxygen saturations, blood pressure, adequacy of pulmonary ventilation, and response to care were monitored throughout the procedure. The physical status of the patient was re-assessed after the procedure. After I obtained informed consent, the scope was passed under direct vision. Throughout the procedure, the patient's blood pressure, pulse, and oxygen saturations were monitored continuously. The colonoscope was introduced through the anus and advanced to the terminal ileum. The colonoscopy was performed without difficulty. The patient tolerated the procedure well. The quality of the bowel preparation was good. Scope In: 11:33:11 AM Scope Withdrawal Time 0 hours 20 minutes 47 seconds Scope Out: 11:57:02 AM Total Procedure Duration Time 0 hours 23 minutes 51 seconds Findings: The perianal and digital rectal examinations were normal. Multiple small and large-mouthed diverticula were found in the recto-sigmoid colon, sigmoid colon and descending colon. There was no evidence of diverticular bleeding. An area of moderately congested mucosa was found in the recto-sigmoid colon, in the sigmoid colon, in the descending colon, at the splenic flexure and in the transverse colon. Biopsies were taken with a cold forceps for histology. Verification of patient identification for the specimen was done. Estimated blood loss was minimal. The terminal ileum appeared normal. Biopsies were taken with a cold forceps for histology. Verification of patient identification for the specimen was done. Estimated blood loss was minimal. Impression: - Severe diverticulosis in the recto-sigmoid colon, in the sigmoid colon and in the descending colon. There was no evidence of diverticular bleeding. - Congested mucosa in the recto-sigmoid colon, in the sigmoid colon, in the descending colon, at the splenic flexure and in the transverse colon. Biopsied. - The examined portion of the ileum was normal. Biopsied. Recommendation: - Discharge patient to home. - Resume previous diet. - Continue present medications. - Await pathology results. - Repeat colonoscopy for surveillance based on pathology results. - Return to GI office. Procedure Code(s): --- Professional --- 08962, Colonoscopy, flexible; with biopsy, single or multiple CPT copyright 2017 [employer]. All rights reserved. The codes documented in this report are preliminary and upon vice president of business development review may be revised to meet current compliance requirements. Lawrence David DO 02/24/2022 12:12:08 PM This report has been signed electronically. Number of Addenda: 1 Note Initiated On: 02/24/2022 11:30 AM Addendum Number: 1 Addendum Date: 06/15/2022 6:19:25 AM MAC was used as sedation for this procedure. Lawrence David DO 06/15/2022 6:19:31 AM This report has been signed electronically.
--- NOTE | 2022-02-24 12:13 | OP.CCLET_ITS ---
06/15/2022 Flaco Lee Re : Colonoscopy procedure for Marie Meléndez Dear Rosa This procedure was performed on Thursday, February 24, 2022. My impressions and recommendations are as follows: Impressions : - Severe diverticulosis in the recto-sigmoid colon, in the sigmoid colon and in the descending colon. There was no evidence of diverticular bleeding. - Congested mucosa in the recto-sigmoid colon, in the sigmoid colon, in the descending colon, at the splenic flexure and in the transverse colon. Biopsied. - The examined portion of the ileum was normal. Biopsied. Recommendations : - Discharge patient to home. - Resume previous diet. - Continue present medications. - Await pathology results. - Repeat colonoscopy for surveillance based on pathology results. - Return to GI office. My findings are described in the full procedure note, which is enclosed. If I can be of further assistance, please feel free to contact me at . Sincerely, Lawrence David, 02/24/2022 12:12:08 PM This report has been signed electronically.
== END 2022-02-24 12:42 | disposition home or self-care (01) ==
LOC: EN 09:53 → AC 09:55
PROVIDERS: PCP Family Medicine; Referring Provider Internal Medicine Gastroenterology; Visit Provider Internal Medicine Gastroenterology
PROC: 0DJD8ZZ Inspection of Lower Intestinal Tract, Via Natural or Artificial Opening Endoscopic (ICD-10-PCS; CPT 45378; principal; 2022-02-24 11:10)
DX: K29.50 Unspecified chronic gastritis without bleeding (principal); K57.30 Diverticulosis of large intestine without perforation or abscess without bleeding; K20.90 Esophagitis, unspecified without bleeding; K31.7 Polyp of stomach and duodenum; K31.89 Other diseases of stomach and duodenum; K63.89 Other specified diseases of intestine; F32.A Depression, unspecified; F41.9 Anxiety disorder, unspecified; Z79.899 Other long term (current) drug therapy
CPT/HCPCS: 45380; 43239; 43251; 88305; 88313; 88342; J7120; J2405

== ENCOUNTER → 2022-03-29 | Outpatient (CLI) | payer MEDICARE, SELFPAY ==
--- NOTE | 2022-03-29 10:34 | BI_ITS ---
MAMMOGRAPHY - BILATERAL SCREENING REASON FOR EXAM: Female, 76 years old. Routine annual screening examination. PERTINENT HISTORY: Non-contributory. History of prior bilateral breast biopsies. TECHNIQUE: Digital bilateral breast teja (3D mammographic acquisition) in the CC and MLO projections. 2-D mediolateral oblique (MLO) and craniocaudad (CC) views of both breasts were obtained. CAD: Full Field Digital Mammography with Computer Added Detection was performed. COMPARISON: Comparison is made with prior study dated 03/09/2021 and 02/19/2020. FINDINGS: Breast Composition: There are scattered areas of fibroglandular density. There are no dominant masses or suspicious calcifications. Stable retraction of the right lower lobe region in comparison with prior breast biopsy. Stable benign-appearing calcifications in the left breast. No other significant abnormalities are identified. There has been no significant change since the prior study. BI/SCRN MAMM (CAD)W/TEJA BILAT IMPRESSION: Stable bilateral screening mammogram. Yearly follow-up mammogram recommended. (A) ASSESSMENT CATEGORY: BIRADS Category 2: Benign. A letter regarding these results will be sent to the patient by the facility within 30 days. Approximately 10% of breast cancers are not detected by mammography. A normal mammogram should not delay biopsy of a clinically suspicious abnormality. [id number] Electronically Signed: Miguel Hightower MD at 11:15 EDT ,
== END | disposition home or self-care (01) ==
LOC: OPBI 10:33
PROVIDERS: PCP Family Medicine; Visit Provider Family Medicine
DX: Z12.31 Encounter for screening mammogram for malignant neoplasm of breast (principal)
CPT/HCPCS: 77063; 77067

== ENCOUNTER → 2022-04-15 | Outpatient (CLI) | payer MEDICARE, SELFPAY ==
--- NOTE | 2022-04-15 13:46 | ECHOD_ITS ---
Reason For Study: MVP Procedure This was a 2D Doppler, Color Flow transthoracic echocardiogram. The exam was of adequate technical quality. Exam performed in department. Left Ventricle Normal LV size. Apical false tendon noted. Left ventricular systolic function is normal. The estimated ejection fraction is 60 %. Diastolic function is indeterminate. No regional wall motion abnormalities noted. Right Ventricle Normal RV size. Normal systolic function. Atria The left atrium is severely enlarged. The right atrium is mildly enlarged. No doppler evidence for ASD. Mitral Valve There is moderate to severe mitral annular calcification. Extension of the mitral annular calcification on base of the posterior mitral valve leaflet. Moderate mitral valve prolapse. Moderate (2+) eccentric mitral valve insufficiency. Tricuspid Valve Normal tricuspid valve. Mild to moderate (1-2+) tricuspid valve insufficiency. Right ventricular systolic pressure estimated to be 36 mmHg. Aortic Valve Trisinus/trileaflet aortic valve. Normal aortic valve. Pulmonic Valve The pulmonic valve is not well visualized. Trivial pulmonic valve insufficiency. Great Vessels Normal sized aortic root. Pericardium/Pleural No pericardial effusion. MMode/2D Measurements & Calculations LVIDd: 5.8 cm IVSd: 0.77 cm Ao root diam: 3.0 cm LVIDs: 3.9 cm LVPWd: 0.79 cm RVDd: 3.1 cm FS: 33.1 % LAV(MOD-bp): 166.3 ml LVAd ap4: 29.5 cm2 SV(MOD-sp4): 62.4 ml LAV(MOD-bp) Indexed: 89.9 ml/m2 LVLd ap4: 7.4 cm LAV(MOD-sp2): 150.4 ml EDV(MOD-sp4): 94.9 ml LAV(MOD-sp4): 146.7 ml EDV(sp4-el): 99.2 ml LVAs ap4: 14.9 cm2 LVLs ap4: 5.5 cm ESV(MOD-sp4): 32.6 ml ESV(sp4-el): 34.6 ml EF(MOD-sp4): 65.7 % EF(sp4-el): 65.2 % SV(sp4-el): 64.7 ml LA A4 area: 32.9 cm2 LA dimension(2D): 5.1 cm RA A4 area: 17.4 cm2 Time Measurements MV dec time: 0.17 sec Doppler Measurements & Calculations MV E max kayla: 65.6 cm/sec MV V2 max: 102.7 cm/sec MV dec slope: 512.8 cm/sec2 MV A max kayla: 44.4 cm/sec MV max P.2 mmHg MV E/A: 1.5 MV V2 mean: 58.9 cm/sec MV mean P.6 mmHg MV V2 VTI: 29.1 cm Ao V2 max: 130.0 cm/sec LV V1 max: 88.7 cm/sec MR max kayla: 547.1 cm/sec Ao max P.8 mmHg LV V1 max P.2 mmHg MR max P.7 mmHg Ao V2 mean: 90.1 cm/sec LV V1 mean P.9 mmHg Ao mean P.7 mmHg LV V1 mean: 64.7 cm/sec Ao V2 VTI: 32.7 cm LV V1 VTI: 22.0 cm PA V2 max: 98.9 cm/sec TR max kayla: 285.7 cm/sec TR max P.6 mmHg ECHO/Echo Complete Interpretation Summary Left ventricular systolic function is normal. The estimated ejection fraction is 60 %. Apical false tendon noted. The left atrium is severely enlarged. The right atrium is mildly enlarged. There is moderate to severe mitral annular calcification. Extension of the mitral annular calcification on base of the posterior mitral v alve leaflet. Moderate mitral valve prolapse. Moderate (2+) eccentric mitral valve insufficiency. Mild to moderate (1-2+) tricuspid valve insufficiency. Trivial pulmonic valve insufficiency. Right ventricular systolic pressure estimated to be 36 mmHg. Diastolic function is indeterminate. Ordering Physician: Rodrigo Paul Referring Physician: Rodrigo Paul Performed By: Zarina Caban RCS
== END | disposition home or self-care (01) ==
LOC: CVS 13:44
PROVIDERS: PCP Family Medicine; Referring Provider Internal Medicine Cardiovascular Disease; Visit Provider Internal Medicine Cardiovascular Disease
DX: I34.1 Nonrheumatic mitral (valve) prolapse (principal)
CPT/HCPCS: 93306

== ENCOUNTER 2023-01-20 11:04 | Observation (INO) | payer MEDICARE, SELFPAY ==
[2023-01-20] VITALS (8 sets, daily range): BP systolic 130–144; BP diastolic 52–76; PULSE 60–68; RESP 13–20; TEMP 36.1–37.1; O2SAT 95–98; BMI 41.0; BMI 36.9
--- NOTE | 2023-01-20 11:18 | CT_ITS ---
STUDY: CT BRAIN WITHOUT CONTRAST REASON FOR EXAM: Female, 77 years old. R arm tingling, weakness RADIATION DOSAGE (If Supplied By Facility): CTDIvol = ( 47.06 ) mGy, DLP = ( 907.97 ) mGycm TECHNIQUE: Transaxial CT imaging of the brain was performed without administration of intravenous contrast material. Individualized dose optimization techniques were used for this CT. COMPARISON: No relevant priors. FINDINGS: Normal soft tissue structures. Normal calvarium. There is mild cerebral atrophy with widening of the extra-axial spaces and ventricular dilatation. Normal white matter tracts of the cerebral hemispheres. There are small punctate calcifications of the basal ganglia which are seen in the aging brain as a normal variant. Normal brainstem. Normal cerebellum. There is no intracranial hemorrhage. There are no findings of an acute ischemic infarction. Normal visualized paranasal sinuses. CT/Brain/Head without Contrast IMPRESSION: Chronic involutional changes of the brain. Electronically Signed: Miguel Hightower MD at 12:24 EDT ,
--- NOTE | 2023-01-20 11:18 | EKG12_ITS ---
Test Reason : NEURO Blood Pressure : / mmHG Vent. Rate : 062 BPM Atrial Rate : 062 BPM P-R Int : 142 ms QRS Dur : 084 ms QT Int : 456 ms P-R-T Axes : 029 014 015 degrees QTc Int : 462 ms Normal sinus rhythm Nonspecific ST abnormality Abnormal ECG Confirmed by ARAVIND WILSON, VERNELL ([id number]), technical writer and editor STACEY TERRAZAS ([id number]) on 01/24/2023 11:40:32 AM Referred By: CHARLES Confirmed By:VERNELL NAZARIO MD
--- NOTE | 2023-01-20 11:27 | EX.ED.DYSGE1 ---
HPI <FANTA Egan - Last Filed: 01/20/23 20:31> History of Present Illness Chief Complaint: Confusion Narrative Narrative: Patient presenting today via EMS with concerns that she was having a stroke. She states that this morning she woke up and felt normal, she then called a friend on the phone and felt like she could not get her words out normally she states,my speech felt off, I did not know what was happening, and I felt really warm. After this episode, patient states that she then felt normal again and went with her to his doctors appointment. When they arrived, patient dropped her purse 3 separate times which is unusual for her. She states that her right hand felt strange and she felt like she could not hold onto the purse correctly. At that time, the office called EMS as they were concerned she was having a stroke. Patient states she now feels normal. She denies any fever, dizziness, chest pain, shortness of breath, confusion, or visual changes. She denies any prior history of stroke or TIA. She states her PMH includes celiac disease and mitral valve prolapse. PFSH <FANTA Egan - Last Filed: 01/20/23 20:31> PFSH Medical History Anxiety and depression Arthritis Bladder disease Cardiology follow-up encounter Colitis Diarrhea Dietary restriction Diverticulosis Easy bruising Esophagitis Femur fracture, left Fibromyalgia Gastric reflux Hepatic cyst History of echocardiogram History of edema History of hiatal hernia History of stress test IBS (irritable bowel syndrome) Interstitial cystitis Migraine headache Mitral valve prolapse syndrome Non-rheumatic mitral regurgitation Non-smoker Nonrheumatic mitral (valve) prolapse PONV (postoperative nausea and vomiting) Renal cyst Shortness of breath on exertion Ventricular ectopy Wears partial dentures Home Medications atenolol 50 mg tablet 50 mg PO DAILY blood pressure 06/16/13 [History Last Taken 01/20/23] glucosamine 750 [id number] no.1 625 mg-C 30 np-smzf-[id number] tablet 1 ea PO DAILY SUPPLEMENT 07/02/16 [History Last Taken 01/19/23] sumatriptan succinate 100 mg tablet 100 mg PO .X1 PRN PRN Migraine Symptoms 07/02/16 [History Last Taken Unknown] nitroglycerin 0.4 mg sublingual tablet 0.4 mg sublingual Q5-15M PRN Chest Pain 11/09/18 [History Last Taken Unknown] escitalopram oxalate 10 mg tablet 10 mg PO DAILY ANTIDEPRESSANT 05/09/19 [History Last Taken 01/20/23] omeprazole 20 mg capsule,delayed release 20 mg PO DAILY acid reflux 05/09/19 [History Last Taken 01/20/23] acetaminophen 500 mg tablet 1,000 mg PO DAILY pain 02/19/22 [History Last Taken 01/20/23] zinc acetate 25 mg (zinc) capsule 25 mg PO DAILY supplement 04/05/22 [History Last Taken 01/19/23] multivitamin 1 tab PO DAILY health maintenance 01/20/23 [History Last Taken 01/20/23] Allergy/AdvReac Type Severity Reaction Status Date / Time ciprofloxacin [From Cipro] Allergy Hives Verified 01/20/23 11:08 ciprofloxacin HCl Allergy Hives Verified 01/20/23 11:08 [From Cipro] dicyclomine [From Bentyl] AdvReac Other Verified 01/20/23 11:08 erythromycin base AdvReac Vomiting Verified 01/20/23 11:08 [Erythromycin Base] hydromorphone HCl AdvReac anxiety Verified 01/20/23 11:08 [From Dilaudid] latex AdvReac Rash Verified 01/20/23 11:08 prochlorperazine edisylate AdvReac anxiety Verified 01/20/23 11:08 [From Compazine] prochlorperazine maleate AdvReac anxiety Verified 01/20/23 11:08 [From Compazine] Family History Father CAD (coronary artery disease) Mother CVA (cerebral vascular accident) Diabetes Sister Heart disease Valvular-mitral Grandmother CAD (coronary artery disease) Grandfather CAD (coronary artery disease) Surgical History H/O hysterectomy with unilateral oophorectomy History of appendectomy History of cholecystectomy History of colon surgery History of colonoscopy History of esophagogastroduodenoscopy (EGD) History of left knee replacement History of right knee joint replacement History of surgery on lower extremity History of tonsillectomy Social History Smoking Status: Never smoker alcohol intake: never substance use type: does not use ROS <FANTA Egan - Last Filed: 01/20/23 20:31> ROS ED Constitutional Constitutional ED: Denies chills or fever(s) Eyes Eyes: Denies blurry vision or diplopia Cardiovascular Cardiovascular: Denies chest pain or palpitations Respiratory/Chest Respiratory/Chest: Denies cough or dyspnea Gastrointestinal Gastrointestinal: Denies abdominal pain, nausea or vomiting Genitourinary Genitourinary ED: Denies dysuria, hematuria or urinary urgency Musculoskeletal Musculoskeletal: Denies arthralgias or myalgias Integumentary Denies rash Neurologic Neurologic: Denies confusion, dizziness, headache(s), paresthesias or weakness Psychiatric Psychiatric: Denies anxiety or depression EXAM <FANTA Egan - Last Filed: 01/20/23 20:31> Physical Exam Const Vital Signs: 01/20/23 11:05 Temperature 98.8 F Temperature Source Temporal Pulse Rate 65 Respiratory Rate 16 Blood Pressure 136/61 H Blood Pressure Mean 86 Pulse Ox 96 Oxygen Delivery Method Room Air Positive well nourished, well developed and no apparent distress General Appearance ED: well developed HEENT Reports normocephalic and head/scalp atraumatic Mouth ED: Yes moist mucous membranes normal Eyes PERRL and EOMs intact bilaterally Neck full ROM and supple Chest Wall inspection of chest normal Resp normal respiratory effort and clear to auscultation bilaterally Cardio regular rate and regular rhythm GI soft to palpation, non-tender, non-distended and no masses Back/Spine normal ROM and normal to inspection Extremity normal to inspection and full ROM Neuro oriented x3, CN's II-XII intact bilaterally, moves all extremities, no focal motor deficits and no sensory deficits noted Sensorium / Orientation: awake and alert Gait (Neuro): normal gait Motor Exam: strength 5/5 throughout Psych mental status grossly normal and thought process normal Skin no rashes or lesions noted and no wounds <Dr. Trev Leonardo DO - Last Filed: 01/20/23 22:10> Physical Exam Const Vital Signs: 01/20/23 11:05 Temperature 98.8 F Temperature Source Temporal Pulse Rate 65 Respiratory Rate 16 Blood Pressure 136/61 H Blood Pressure Mean 86 Pulse Ox 96 Oxygen Delivery Method Room Air MDM <FANTA Egan - Last Filed: 01/20/23 20:31> [facility] Narrative Medical decision making narrative: Patient presenting today after EMS was called at her 's doctor appointment for concerns that she was having a stroke. Her NIH is 0 and her neuro exam is normal. She feels completely normal now. It is possible that patient did have a TIA. She has no prior history of TIA or stroke. Labs will be obtained to rule out leukocytosis, anemia, electrolyte abnormality, RAOUL. CT of the head will be obtained to rule out intracranial abnormality. At 12:35 PM patient's stated that he felt her speech was slurred again, repeat NIH is 0. Patient has a very mild anemia, BMP unremarkable, urine has been sent for culture. I spoke to the hospitalist in regards to admission for further work-up of patient, she will be admitted in stable condition and is comfortable with plan. Lab Data Labs: Laboratory Results - last 24 hr 01/20/23 01/20/23 01/20/23 11:35 11:35 11:35 WBC 6.1 RBC 3.96 L Hgb 11.9 L Hct 36.5 L MCV 92.2 MCH 30.1 MCHC 32.6 RDW Std Deviation 46.4 H RDW Coeff of Laina 13.6 Plt Count 228 MPV 10.3 Immature Gran % (Auto) 0.300 Neut % (Auto) 63.0 Lymph % (Auto) 21.2 Mcdowell % (Auto) 10.2 H Eos % (Auto) 4.3 Baso % (Auto) 1.0 Absolute Neuts (auto) 3.8 Absolute Lymphs (auto) 1.28 Nucleated RBC % 0 PT 13.6 INR 1.0 APTT 25.9 Sodium 141 Potassium 3.9 Chloride 107 Carbon Dioxide 28.0 Anion Gap 6 BUN 15 Creatinine 0.72 Estim Creat Clear Calc 39.59 Est GFR (MDRD) Af Amer 101 Est GFR (MDRD) Non-Af 84 BUN/Creatinine Ratio 20.8 H Glucose 101 Calcium 9.1 Total Bilirubin 0.60 Direct Bilirubin 0.18 AST 20 ALT 17 Alkaline Phosphatase 63 Total Protein 7.1 Albumin 3.2 Globulin 3.9 Urine Color Urine Clarity Urine pH Ur Specific [place] Urine Protein Urine Glucose (UA) Urine Ketones Urine Occult Blood Urine Nitrite Urine Bilirubin Urine Urobilinogen Ur Leukocyte Esterase Urine RBC Urine WBC Ur Squamous Epith Cells Urine Bacteria Urine Mucus 01/20/23 12:25 WBC RBC Hgb Hct MCV MCH MCHC RDW Std Deviation RDW Coeff of Laina Plt Count MPV Immature Gran % (Auto) Neut % (Auto) Lymph % (Auto) [place]cdowell % (Auto) Eos % (Auto) Baso % (Auto) Absolute Neuts (auto) Absolute Lymphs (auto) Nucleated RBC % PT INR APTT Sodium Potassium Chloride Carbon Dioxide Anion Gap BUN Creatinine Estim Creat Clear Calc Est GFR (MDRD) Af Amer Est GFR (MDRD) Non-Af BUN/Creatinine Ratio Glucose Calcium Total Bilirubin Direct Bilirubin AST ALT Alkaline Phosphatase Total Protein Albumin Globulin Urine Color Yellow Urine Clarity Sl. Cloudy Urine pH 7.0 Ur Specific [place] 1.005 Urine Protein 15 H Urine Glucose (UA) Normal Urine Ketones Negative Urine Occult Blood Negative Urine Nitrite Positive H Urine Bilirubin 3 H Urine Urobilinogen 4 H Ur Leukocyte Esterase 100 H Urine RBC 0 SEEN Urine WBC 0-5 SEEN Ur Squamous Epith Cells 0-5 SEEN Urine Bacteria RARE Urine Mucus 0 SEEN Radiography Diagnostic Testing: Clinical Impression(s) from Imaging Studies Brain CT 01/20/23 11:18 IMPRESSION: Chronic involutional changes of the brain. Electronically Signed: Miguel Hightower MD at 12:24 EDT , EKG Initial EKG: Comments: 62 bpm, normal sinus rhythm, no ST elevation, reviewed and interpreted by attending ED physician <Dr. Trev Leonardo, DO - Last Filed: 01/20/23 22:10> [facility] Lab Data Attestation: I reviewed the patient's lab results. Lab results narrative: CBC with no leukocytosis, mild anemia, no thrombocytopenia Coags within normal limits BMP without evidence of significant electrolyte abnormalities, no anion gap, no acute kidney injury. LFTs show no evidence of hepatobiliary pathology. Labs: Laboratory Results - last 24 hr 01/20/23 01/20/23 01/20/23 11:35 11:35 11:35 WBC 6.1 RBC 3.96 L Hgb 11.9 L Hct 36.5 L MCV 92.2 MCH 30.1 MCHC 32.6 RDW Std Deviation 46.4 H RDW Coeff of Laina 13.6 Plt Count 228 MPV 10.3 Immature Gran % (Auto) 0.300 Neut % (Auto) 63.0 Lymph % (Auto) 21.2 Mcdowell % (Auto) 10.2 H Eos % (Auto) 4.3 Baso % (Auto) 1.0 Absolute Neuts (auto) 3.8 Absolute Lymphs (auto) 1.28 Nucleated RBC % 0 PT 13.6 INR 1.0 APTT 25.9 Sodium 141 Potassium 3.9 Chloride 107 Carbon Dioxide 28.0 Anion Gap 6 BUN 15 Creatinine 0.72 Estim Creat Clear Calc 39.59 Est GFR (MDRD) Af Amer 101 Est GFR (MDRD) Non-Af 84 BUN/Creatinine Ratio 20.8 H Glucose 101 Calcium 9.1 Total Bilirubin 0.60 Direct Bilirubin 0.18 AST 20 ALT 17 Alkaline Phosphatase 63 Total Protein 7.1 Albumin 3.2 Globulin 3.9 Urine Color Urine Clarity Urine pH Ur Specific [place] Urine Protein Urine Glucose (UA) Urine Ketones Urine Occult Blood Urine Nitrite Urine Bilirubin Urine Urobilinogen Ur Leukocyte Esterase Urine RBC Urine WBC Ur Squamous Epith Cells Urine Bacteria Urine Mucus 01/20/23 12:25 WBC RBC Hgb Hct MCV MCH MCHC RDW Std Deviation RDW Coeff of Laina Plt Count MPV Immature Gran % (Auto) Neut % (Auto) Lymph % (Auto) [place]cd[place] % (Auto) Eos % (Auto) Baso % (Auto) Absolute Neuts (auto) Absolute Lymphs (auto) Nucleated RBC % PT INR APTT Sodium Potassium Chloride Carbon Dioxide Anion Gap BUN Creatinine Estim Creat Clear Calc Est GFR (MDRD) Af Amer Est GFR (MDRD) Non-Af BUN/Creatinine Ratio Glucose Calcium Total Bilirubin Direct Bilirubin AST ALT Alkaline Phosphatase Total Protein Albumin Globulin Urine Color Yellow Urine Clarity Sl. Cloudy Urine pH 7.0 Ur Specific [place] 1.005 Urine Protein 15 H Urine Glucose (UA) Normal Urine Ketones Negative Urine Occult Blood Negative Urine Nitrite Positive H Urine Bilirubin 3 H Urine Urobilinogen 4 H Ur Leukocyte Esterase 100 H Urine RBC 0 SEEN Urine WBC 0-5 SEEN Ur Squamous Epith Cells 0-5 SEEN Urine Bacteria RARE Urine Mucus 0 SEEN Radiography Diagnostic Testing: Clinical Impression(s) from Imaging Studies Brain CT 01/20/23 11:18 IMPRESSION: Chronic involutional changes of the brain. Electronically Signed: Miguel Hightower MD at 12:24 EDT , CT head shows no evidence of intracranial pathology. Treatment and Re-Evaluation :: ED attending note: I evaluated the patient in conjunction with the ALEX. I agree with his/her statements and above findings. I have personally performed a face to face assessment of the patient and have reviewed the ALEX Note. I performed a substantive portion of the visit including all aspects of the following. I personally saw the patient performed chart review, physical exam, reviewed labs, imaging (if obtained), and formulated a treatment and management plan. Exam: Nursing triage notes reviewed, Vital signs reviewed Constitutional: please see mdm HENT: MMM Eyes: Pupils equal round and reactive to light, Extraocular muscles intact Neck: No stridor, no JVD, full neck ROM Lungs: Clear to auscultation, No wheezing or rales. No increased work of breathing, no conversational dyspnea, no accessory muscle use, no nasal flaring. No respiratory distress noted Heart: Regular rate and rhythm, No murmurs, No rubs and No gallops, 2+ distal pulses (radial, femoral, posterior tibial) in all extremities Abdomen: Soft, there is no tenderness, rigidity, rebound or guarding, no obvious peritoneal signs, no palpable pulsatile abdominal masses, no auscultated abdominal bruit : No CVAT Extremities: No edema Neuro: Alert and oriented x3, neuro exam at baseline, cranial nerves II through XII are intact. No pain with extraocular muscle movement. There is negative test of skew. Normal speech. 5 of 5 strength in upper and lower extremities in flexion extension. Intact sensation to light touch in upper and lower extremity dermatomes. No truncal or extremity ataxia. No dysdiadochokinesia. Normal gait. 2+ reflexes. No meningeal signs. Negative Babinski. NIH of 0 Skin: No rash or lesions noted MDM/plan: Chief Complaint: Confusion Patient was hemodynamically stable, afebrile, nontoxic-appearing. She had no focal neurologic deficits. NIH was 0. Given NIH stroke scale of 0 she is not a candidate for tPA, TNK or emergent thrombectomy. We will perform a broad lab and imaging work-up to further elucidate the etiology of patient complaint specifically ruling out signs of infectious cephalopathy, metabolic encephalopathy, intracranial bleed, mass or evidence of stroke. We will make final disposition based on results of labs, images, reassessment, repeat physical exam, repeat neurologic exam, shared decision-making. Additional history: Patient initially said her last known well was this morning at approximately 8 AM. Upon further questioning. The patient's last known well was sometime last night approximately 12:45 AM on 01/20/2023. The patient and thought her speech was more slurred in the ED at approximately 12:35 PM. She was evaluated at this time repeat neurologic exam had NIH of 0. She is not a candidate for thrombolysis or thrombectomy at this time. CT scan of the brain was negative. We offered the patient admission and she agreed to come into the hospital to undergo neurologic consultation, risk factor modification and MRI. EKG with normal sinus rhythm, normal axis, no STEMI, no atrial fibrillation or other arrhythmia External records reviewed: No recent advanced imaging of the head I considered the following differential diagnosis: Factors affecting care: Colitis, anxiety, interstitial cystitis, IBS Social determinants of health: Elderly History obtained from others: The patient's Shared decision making: I will have a discussion with the patient and or visitors regarding risk/benefits of further testing or admission. They will be made aware of of the risk/benefits inherent in this decision they will be given the opportunity to voice understanding. Consults: Likely internal medicine Discharge Plan Dx/Rx/DC Orders Clinical Impression: UTI (urinary tract infection), Dysarthria, Right hand weakness Disposition Disposition: Acute Care Hospital [facility]
[2023-01-20 11:44] LABS: Absolute Lymphocyte Count 1.28 X10^3/uL (0.83-4.51); Absolute Neutrophil Count 3.8 X10^3/uL (2.0-7.7); Basophil# 0.06 X10^3/uL; Eosinophil# 0.26 X10^3/uL; Eosinophils% 4.3 % (0-5); Hematocrit 36.5 % (37-47); Hemoglobin 11.9 g/dL (12.0-15.0); Lymphocyte # 1.28 X10^3/ul (0.83-4.51); Lymphocyte % 21.2 % (19-41); Mean Corp Hgb Conc 32.6 g/dL (32-36); Mean Corpuscular Hgb 30.1 pg (27.0-32.0); Mean Corpuscular Volume 92.2 fL (81-99); Mean Platelet Vol. 10.3 fl (6.2-12.0); Monocyte# 0.62 X10^3/uL; Monocyte% 10.2 % (0-10); NRBC Flagged by Analyzer 0 % (0-5); Neutrophil # 3.81 X10^3/uL (2.7-7.7); Platelet Count 228 K/mm3 (150-450); RBC Distribution Width CV 13.6 % (11.6-14.6); RBC Distribution Width SD 46.4 fl (35.1-43.9); Red Blood Count 3.96 M/mm3 (4.2-5.4); White Blood Count 6.1 K/mm3 (4.4-11.0)
[2023-01-20 11:52] LABS: Prothrombin Time (Protime)PT. 13.6 SECONDS (11.7-14.9)
[2023-01-20 11:53] LABS: Partial Thromboplast Time 25.9 Seconds (24.1-36.2)
[2023-01-20 12:03] LABS: AST(SGOT) 20 U/L (15-37); Alanine Aminotransfer ALT/SGPT 17 U/L (13-56); Albumin, Serum 3.2 g/dL (3.2-5.0); Alkaline Phosphatase 63 U/L (45-117); Anion Gap 6 (5-15); BUN 15 mg/dL (7-18); BUN/Creat Ratio 20.8 RATIO (10-20); Bilirubin, Direct 0.18 mg/dL (0.00-0.30); Calcium,Total 9.1 mg/dL (8.5-10.1); Chloride 107 mmol/L (98-107); Creatinine, Serum 0.72 mg/dL (0.55-1.02); EST Glomerular Filtration Rate 84 mL/min (>60); Est Glom Filt Rate - Afr Amer 101 mL/min (>60); Estimated Creatinine Clearance 39.59 ml/min; Globulin 3.9 g/dL (2.2-4.2); Glucose 101 mg/dL (74-106); Potassium 3.9 mmol/L (3.5-5.1); Protein, Total 7.1 g/dL (6.4-8.2); Sodium Level 141 mmol/L (136-145)
[2023-01-20 12:34] LABS: Mucous, Urine 0 SEEN /hpf (<or=2+); Red Blood Cells-Urine 0 SEEN /hpf (0-5)
[2023-01-20 13:06] LABS: Color, Urine Yellow (Yellow); Glucose, Dipstick Normal (Normal); Ketone-Dipstick Negative (Negative); Leukocyte Esterase-Dipstick 100 /ul (Negative); Nitrite-Dipstick Positive (Negative); Occult Blood-Urine Negative /ul (Negative); Protein-Dipstick 15 mg/dl (Negative); Specific Gravity, Urine 1.005 (1.002-1.030); Urine Bilirubin Dipstick 3 mg/dL (Negative); Urine Clarity Sl. Cloudy (Clear); Urine Urobilinogen 4 mg/dl (Normal)
[2023-01-20 13:13] LABS: Bacteria RARE /hpf (None Seen); Squamous Epithelial Cells - UA 0-5 SEEN /hpf (5-10); White Blood Cells 0-5 SEEN /hpf (0-5)
--- NOTE | 2023-01-20 13:14 | CT_ITS ---
We are attempting to reach an attending provider to discuss findings. An addendum with communication details will be sent when the communication is complete. STUDY: CTA HEAD AND NECK WITH CONTRAST REASON FOR EXAM: Female, 77 years old. Neuro deficit, acute, stroke suspected RADIATION DOSAGE (If Supplied By Facility): CTDIvol = ( 26.13 ) mGy, DLP = ( 773.66 ) mGycm TECHNIQUE: CT angiography was performed with a multi-detector CT scanner. Data acquisition was obtained from the skull base through the vertex following intravenous administration of IV 100mL Isovue-370. MIP images were reconstructed from the axial data set. Post-processing of the angiographic images was performed, with multiplanar reformation and 3D reconstruction. Individualized dose optimization techniques were used for this CT. COMPARISON: No relevant priors. FINDINGS: Normal bilateral petrous carotid arteries. Normal right cavernous carotid artery with a normal supraclinoid bifurcation. Normal left cavernous carotid artery with a normal supraclinoid bifurcation. Normal right A1 segments of the anterior cerebral artery. Normal left A1 segments of the anterior cerebral artery. Normal intact anterior communicating artery (ACOM). Normal bilateral A2 segments of the anterior cerebral arteries. Normal right M1 and M2 segments of the middle cerebral arteries, with a normal M1 bifurcation. Normal left M1 and M2 segments of the middle cerebral arteries, with a normal M1 bifurcation. Normal right posterior communicating artery (PCOM). Normal left posterior communicating artery (PCOM). Normal bilateral vertebral arteries. Normal basilar artery with a normal basilar bifurcation. The visualized bilateral superior cerebellar (SCA) arteries are normal. Normal bilateral P1, P2 and visualized P3 segments of the posterior cerebral arteries. There is no demonstrated aneurysm of the [place]. There is no demonstrated abnormality of the visualized brain. AORTIC ARCH: There is atherosclerotic calcific plaque formation of the aortic arch and great vessels arising from the aortic arch, without a hemodynamically significant stenosis. There is a normal origin of the brachiocephalic, left common carotid, and left subclavian arteries. RIGHT CAROTID ARTERIES: Normal right common carotid artery (CCA). Normal right common carotid bulb. There is mild atherosclerotic plaque formation of the origin of the right internal carotid artery with less than 50% cross sectional diameter stenosis. Normal visualized cervical portion of the right internal carotid artery. Normal origin of the right external carotid artery (ECA). LEFT CAROTID ARTERIES: Normal left common carotid artery (CCA). Normal left common carotid bulb. There is mild atherosclerotic plaque formation of the origin of the left internal carotid artery with less than 50% cross sectional diameter stenosis. Normal visualized cervical portion of the left internal carotid artery. Normal origin of the left external carotid artery (ECA). VERTEBRAL ARTERIES: Normal bilateral vertebral arteries. CT/STROKE CTA Head AND Neck W/Con IMPRESSION: Minimal calcific plaque is seen at the origin of the right and left internal carotid arteries. Electronically Signed: Miguel Hightower MD at 13:52 EDT ,
--- NOTE | 2023-01-20 13:14 | ECHOD_ITS ---
Version 2 Reason For Study: TIA/STROKE Procedure This was a 2D Doppler, Color Flow transthoracic echocardiogram. Exam performed portable in patient room. Left Ventricle Normal LV size. Left ventricular systolic function is normal. The estimated ejection fraction is 55 %. No regional wall motion abnormalities noted. Right Ventricle Normal RV size. Normal systolic function. Atria The left atrium is mildly enlarged. Normal right atrium. Bubble contrast study negative for right to left interatrial shunt. Mitral Valve There is moderate mitral annular calcification. Bileaflet mitral valve prolapse. Mild-Moderate (1- 2+) mitral valve insufficiency. Tricuspid Valve Normal tricuspid valve. Mild tricuspid valve insufficiency. Pulmonary artery systolic pressure is 40 mmHg. Aortic Valve Normal aortic valve. Trisinus/trileaflet aortic valve. Pulmonic Valve Normal pulmonic valve. Great Vessels Normal aortic root. The pulmonary artery is normal size. Normal inferior vena cava. Pericardium/Pleural No pericardial effusion. Medication Performed a rapid injection of agitated mix of 9 cc saline and 1cc air to assess for atrial septal defect. MMode/2D Measurements & Calculations LVIDd: 6.0 cm IVSd: 1.2 cm Ao root diam: 3.0 cm LVIDs: 4.5 cm LVPWd: 1.0 cm RVDd: 4.2 cm FS: 25.7 % LAV(MOD-bp): 90.4 ml LVAd ap4: 24.3 cm2 SV(MOD-sp4): 37.8 ml LAV(MOD-bp) Indexed: 44.0 ml/m2 LVLd ap4: 6.3 cm LAV(MOD-sp2): 97.7 ml EDV(MOD-sp4): 73.6 ml LAV(MOD-sp4): 73.3 ml EDV(sp4-el): 78.8 ml LVAs ap4: 14.8 cm2 LVLs ap4: 5.1 cm ESV(MOD-sp4): 35.9 ml ESV(sp4-el): 36.5 ml EF(MOD-sp4): 51.3 % EF(sp4-el): 53.7 % SV(sp4-el): 42.3 ml LA A4 area: 22.8 cm2 LA dimension(2D): 5.2 cm RA A4 area: 17.0 cm2 Time Measurements MV dec time: 0.12 sec Doppler Measurements & Calculations MV E max surinder: 85.5 cm/sec Lat Peak E' Surinder: 10.2 cm/sec Med Peak E' Surinder: 7.4 cm/sec MV A max surinder: 56.5 cm/sec E/E' lat: 8.4 E/E' med: 11.5 MV E/A: 1.5 MV V2 max: 108.2 cm/sec MV dec slope: 728.6 cm/sec2 Ao V2 max: 119.8 cm/sec MV max P.7 mmHg Ao max P.7 mmHg MV V2 mean: 51.4 cm/sec Ao V2 mean: 83.9 cm/sec MV mean P.3 mmHg Ao mean P.2 mmHg MV V2 VTI: 29.9 cm Ao V2 VTI: 30.7 cm AV (velocity ratio): 0.84 LV V1 max: 107.0 cm/sec MR max surinder: 580.8 cm/sec PA V2 max: 97.4 cm/sec LV V1 max P.6 mmHg MR max P.9 mmHg PA V2 mean: 71.3 cm/sec LV V1 mean P.3 mmHg MR mean surinder: 449.6 cm/sec LV V1 mean: 70.3 cm/sec MR mean P.3 mmHg LV V1 VTI: 25.7 cm MR VTI: 206.1 cm TR max surinder: 307.8 cm/sec PI dec slope: 201.4 cm/sec2 TR max P.9 mmHg ECHO/Echo Complete Interpretation Summary Normal LV size. Left ventricular systolic function is normal. The estimated ejection fraction is 55 %. The left atrium is mildly enlarged. Bubble contrast study negative for right to left interatrial shunt. Bileaflet mitral valve prolapse. Mild-Moderate (1-2+) mitral valve insufficiency. Pulmonary artery systolic pressure is 40 mmHg. Ordering Physician: Veronica Louise Referring Physician: ROSENDO BROWN Performed By: Zarina Caban RCS
--- NOTE | 2023-01-20 13:14 | MRI_ITS ---
STUDY: MRI BRAIN WITHOUT CONTRAST REASON FOR EXAM: Female, 77 years old. tia TECHNIQUE: Standardized multiplanar fat and water weighted pulse sequences were obtained. COMPARISON: CT of the brain January 20, 2023 FINDINGS: Normal size of the ventricles and extra-axial spaces for the patient''s age. There are multiple bilateral scattered periventricular punctate white matter lesions most likely representing chronic ischemic changes in patient of this age without mass effect or restricted diffusion . Normal bilateral basal ganglia. Normal thalami. There is no extra-axial fluid accumulation. Normal flow voids within the major intracranial circulation suggesting patency by spin echo criteria. Normal sella turcica, pituitary gland, infundibular stalk, optic chiasm and hypothalamus. Normal tectal plate and pineal gland. Normal midbrain, pricila and medulla. Normal cerebellum. Normal basal cisterns. Normal bilateral temporal bones. Normal bilateral internal auditory canals. Postsurgical changes of the orbits.. Normal visualized paranasal sinuses. Normal calvarium and skull base. Normal visualized soft tissue structures. Normal visualized upper cervical spine. MRI/Brain without Contrast IMPRESSION: Moderate periventricular white matter ischemic change without evidence for acute infarct.. Electronically Signed: Ted Oliveira MD at 16:24 EDT ,
--- NOTE | 2023-01-20 13:15 | PCM.HP.STD ---
HPI - General General Date of Admission: 01/20/23 Date of Service: 01/20/23 Chief Complaint: Dysarthria/right hand weakness HPI Narrative SAHARA CRUZ, is a 77 F who presented to the emergency department at [facility] on 01/20/2023 with dysarthria and right hand weakness. Patient states she woke up this morning and was feeling normal. She called a friend on the phone later in the morning and felt like she could not get her words out normally. She reported she just felt her speech was off. She also reported feeling very warm at that time. After this episode she felt normal again and went with her to his doctor appointment and while she was there she dropped her purse out of her right hand 3 separate times in a row which was very unusual for her. She has no baseline issues with her right hand. She denied it specifically feeling weak or have any paresthesias, tingling, or numbness but indicated she just could not hold onto her purse correctly. At that time her 's physician called EMS as they were concerned she was having strokelike symptoms and brought her to the emergency department. Upon arrival she was asymptomatic and has been so in the emergency department. She has had no history of stroke or TIA. She has a history of migraine headaches however does not have any at the present time. Her only other complaint was some urinary frequency and dysuria. She has interstitial cystitis at baseline. Stroke team was not called as she was asymptomatic on presentation. Vital signs on presentation demonstrated temperature of 98.8, heart rate 65, blood pressure 136/61, respiratory rate 16, oxygen saturations 96% on room air. CBC was overall unremarkable showing only a chronic stable anemia with a hemoglobin of 11.9 which was higher than her previous. Coags were normal. Chemistry panel was unremarkable. Glucose was 101. Liver functions normal. Her urine was somewhat suggestive of infection being positive for nitrites and leuk esterase. Small amount of white cells and rare bacteria. Culture was sent. CT of the brain was unremarkable for any acute findings. CT of the head and neck was unremarkable. EKG was normal sinus rhythm with normal intervals and no ST-T wave changes concerning for acute ischemia. [facility] Medical History Anxiety and depression Arthritis Bladder disease Cardiology follow-up encounter Colitis Diarrhea Dietary restriction Diverticulosis Easy bruising Esophagitis Femur fracture, left Fibromyalgia Gastric reflux Hepatic cyst History of echocardiogram History of edema History of hiatal hernia History of stress test IBS (irritable bowel syndrome) Interstitial cystitis Migraine headache Mitral valve prolapse syndrome Non-rheumatic mitral regurgitation Non-smoker Nonrheumatic mitral (valve) prolapse PONV (postoperative nausea and vomiting) Renal cyst Shortness of breath on exertion Ventricular ectopy Wears partial dentures Home Medications atenolol 50 mg tablet 50 mg PO DAILY blood pressure 06/16/13 [History Last Taken 01/20/23] glucosamine 750 bf-gwdzagccjn-erw no.1 625 mg-C 30 xg-wxhc-qqlx tablet 1 ea PO DAILY SUPPLEMENT 07/02/16 [History Last Taken 01/19/23] sumatriptan succinate 100 mg tablet 100 mg PO .X1 PRN PRN Migraine Symptoms 07/02/16 [History Last Taken Unknown] nitroglycerin 0.4 mg sublingual tablet 0.4 mg sublingual Q5-15M PRN Chest Pain 11/09/18 [History Last Taken Unknown] escitalopram oxalate 10 mg tablet 10 mg PO DAILY ANTIDEPRESSANT 05/09/19 [History Last Taken 01/20/23] omeprazole 20 mg capsule,delayed release 20 mg PO DAILY acid reflux 05/09/19 [History Last Taken 01/20/23] acetaminophen 500 mg tablet 1,000 mg PO DAILY pain 02/19/22 [History Last Taken 01/20/23] zinc acetate 25 mg (zinc) capsule 25 mg PO DAILY supplement 04/05/22 [History Last Taken 01/19/23] multivitamin 1 tab PO DAILY health maintenance 01/20/23 [History Last Taken 01/20/23] Allergy/AdvReac Type Severity Reaction Status Date / Time ciprofloxacin [From Cipro] Allergy Hives Verified 01/20/23 11:08 ciprofloxacin HCl Allergy Hives Verified 01/20/23 11:08 [From Cipro] dicyclomine [From Bentyl] AdvReac Other Verified 01/20/23 11:08 erythromycin base AdvReac Vomiting Verified 01/20/23 11:08 [Erythromycin Base] hydromorphone HCl AdvReac anxiety Verified 01/20/23 11:08 [From Dilaudid] latex AdvReac Rash Verified 01/20/23 11:08 prochlorperazine edisylate AdvReac anxiety Verified 01/20/23 11:08 [From Compazine] prochlorperazine maleate AdvReac anxiety Verified 01/20/23 11:08 [From Compazine] Family History Father CAD (coronary artery disease) Mother CVA (cerebral vascular accident) Diabetes Sister Heart disease Valvular-mitral Grandmother CAD (coronary artery disease) Grandfather CAD (coronary artery disease) Surgical History H/O hysterectomy with unilateral oophorectomy History of appendectomy History of cholecystectomy History of colon surgery History of colonoscopy History of esophagogastroduodenoscopy (EGD) History of left knee replacement History of right knee joint replacement History of surgery on lower extremity History of tonsillectomy Social History Smoking Status: Never smoker alcohol intake: never substance use type: does not use ROS Constitutional Constitutional: Denies anorexia, change in weight, chills, fatigue, fever(s), malaise, night sweats, weakness or other Eyes Eyes: Denies blurry vision, change in eye color, change in vision, discharge from eye(s), double vision, erythema, eye pain, loss of vision or other ENT HEENT: Denies abnormal hearing, dysphagia, ear pain, epistaxis, headache(s), hearing loss, nasal congestion, nasal discharge, post nasal drip, sinus pressure, sore throat or other Cardiovascular Cardiovascular: Denies chest pain, claudication, dyspnea on exertion, edema, lightheadedness, orthopnea, palpitations, paroxysmal nocturnal dyspnea, rapid heart rate, syncope or other Respiratory/Chest Respiratory/Chest: Denies cough, dyspnea, excessive phlegm production, hemoptysis, productive cough, shortness of breath at rest, shortness of breath with exertion, wheezing or other Gastrointestinal Gastrointestinal: Denies abdominal pain, coffee ground emesis, constipation, diarrhea, dyspepsia, hematemesis, hematochezia, loose stools, melena, nausea, vomiting or other Genitourinary Genitourinary: Reports burning urination, dysuria, urinary frequency and urinary incontinence; Denies difficulty urinating, hematuria, nocturia, urinary hesitancy, urinary urgency or other Musculoskeletal Musculoskeletal: Denies arthralgias, back pain, joint pain, joint stiffness, joint swelling, myalgias, neck pain or other Neurologic Neurologic: Reports focal weakness and other Details: Speech abnormalities ; Denies abnormal gait, abnormal speech, confusion, disequilibrium, dizziness, headache(s), numbness, paresthesias, seizure-like activity, seizures, syncope, tingling or tremor(s) Psychiatric Psychiatric: Denies anxiety, depression, homicidal ideation, suicidal ideation or other Endocrine Endocrinology: Denies change in body appearance, cold intolerance, excessive sweating, heat intolerance, polydipsia, polyuria or other Hematologic/Lymphatic Hematologic/Lymphatic: Denies anemia, easy bleeding, easy bruising, lymphadenopathy or other Allergic/Immunologic Allergic/Immunologic: Denies rhinitis, hives, eczemia, asthma or other Vital Signs Vital Signs Vital Signs: 01/20/23 11:05 01/20/23 13:08 01/20/23 13:09 Temperature 98.8 F 98 F Temperature Source Temporal Temporal Pulse Rate 65 63 62 Respiratory Rate 16 13 14 Blood Pressure 136/61 H 144/57 H 144/67 H Blood Pressure Mean 86 86 92 Pulse Ox 96 96 97 Oxygen Delivery Method Room Air Room Air Room Air Weight Weight: 105.1 kg Body Mass Index (BMI) 41.0 Physical Exam Const alert, oriented x3, no apparent distress, healthy appearing and well nourished Constitutional Narrative: Morbidly obese, elderly white female, appears healthy, sitting up in bed, nontoxic, at bedside General Appearance: cooperative HEENT normocephalic, head/scalp atraumatic, hearing grossly normal bilaterally and moist oral mucous membranes HEENT Narrative: Dental plate in place, Mallampati is 2, no thrush Eyes PERRL, EOMs intact bilaterally and conjunctivae normal Eyes Narrative: No scleral icterus Neck no lymphadenopathy, supple, no JVD and no carotid bruits Neck Narrative: Trachea mid line, no thyroid enlargement, no carotid bruits Resp normal respiratory effort, no retractions, no use of accessory muscles and clear to auscultation bilaterally Auscultation: Negative for rales, rhonchi or wheezes Cardio regular rate, regular rhythm, S1 normal heart sound, S2 normal heart sound, no murmurs, no rub, no gallops and no clicks GI normal to inspection, nondistended, normoactive bowel sounds and soft to palpation Extremity no clubbing, cyanosis or edema Extremity Narrative: 2+ pedal pulses Skin no rashes or lesions noted, no wounds, skin turgor normal, no jaundice, no petechiae and no mottling Neuro oriented x3, CN's II-XII intact bilaterally, moves all extremities and no focal motor deficits Neuro Narrative: Reflexes are 2+, sensation is normal Sensorium / Orientation: awake, alert, oriented to person, oriented to place and oriented to time Speech: speech normal Motor Exam: strength 5/5 throughout Psych affect normal Psych Narrative: Very pleasant, appropriately interactive Results Lab / Micro Data Attestation: I reviewed the patient's lab results. Result Diagrams: 01/20/23 11:35 01/20/23 11:35 Labs: Laboratory Results - last 24 hr 01/20/23 11:35: WBC 6.1, RBC 3.96 L, Hgb 11.9 L, Hct 36.5 L, MCV 92.2, MCH 30.1, MCHC 32.6, RDW Std Deviation 46.4 H, RDW Coeff of Laina 13.6, Plt Count 228, MPV 10.3, Immature Gran % (Auto) 0.300, Neut % (Auto) 63.0, Lymph % (Auto) 21.2, [place] % (Auto) 10.2 H, Eos % (Auto) 4.3, Baso % (Auto) 1.0, Absolute Neuts (auto) 3.8, Absolute Lymphs (auto) 1.28, Nucleated RBC % 0 01/20/23 11:35: Sodium 141, Potassium 3.9, Chloride 107, Carbon Dioxide 28.0, Anion Gap 6, BUN 15, Creatinine 0.72, Estim Creat Clear Calc 39.59, Est GFR (MDRD) Af Amer 101, Est GFR (MDRD) Non-Af 84, BUN/Creatinine Ratio 20.8 H, Glucose 101, Calcium 9.1, Total Bilirubin 0.60, Direct Bilirubin 0.18, AST 20, ALT 17, Alkaline Phosphatase 63, Total Protein 7.1, Albumin 3.2, Globulin 3.9 01/20/23 11:35: PT 13.6, INR 1.0, APTT 25.9 01/20/23 12:25: Urine Color Yellow, Urine Clarity Sl. Cloudy, Urine pH 7.0, Ur Specific [place] 1.005, Urine Protein 15 H, Urine Glucose (UA) Normal, Urine Ketones Negative, Urine Occult Blood Negative, Urine Nitrite Positive H, Urine Bilirubin 3 H, Urine Urobilinogen 4 H, Ur Leukocyte Esterase 100 H, Urine RBC 0 SEEN, Urine WBC 0-5 SEEN, Ur Squamous Epith Cells 0-5 SEEN, Urine Bacteria RARE, Urine Mucus 0 SEEN Radiology Impression Brain CT 01/20/23 11:18 IMPRESSION: Chronic involutional changes of the brain. Electronically Signed: Migeul Hightower MD at 12:24 EDT , Assessment & Plan Assessment/Plan (1) Dysarthria: (2) Right hand weakness: (3) UTI (urinary tract infection): PLAN: Plan Dysarthria/right hand weakness -We will rule out TIA/stroke -NIH is currently 0 -Continue NIH per stroke protocol -Stroke order set utilized -Start atorvastatin 80 mg daily -Check lipids -Check hemoglobin A1c -Check CTA of the head and neck -Check MRI of the brain -Check echocardiogram -Start aspirin Suspected UTI -UA is suggestive of urinary tract infection with positive leuk esterase/nitrites/white cells and few bacteria -This may be related to her history of interstitial cystitis and chronic inflammation -Culture sent -We will start ceftriaxone and if cultures negative discontinue antibiotics Mitral valve prolapse/mitral regurgitation/ventricular ectopy -Follows with cardiology as an outpatient -Recent echo was stable--> 02/25/2021 EF at 60% with moderate to severe mitral annular calcification and 2+ mitral valve insufficiency, right ventricular systolic pressure was 40 and diastolic dysfunction was present -Continue atenolol GERD -Continue PPI Chronic pain/fibromyalgia Continue acetaminophen as ordered History of interstitial cystitis -Continue home bladder regimen Morbid obesity -BMI is 41.0 -Recommend weight loss -Complicates treatment, prognosis, outcomes DVT prophylaxis -Subcu Lovenox CODE STATUS -Full code as verified on admission Charges/Coding Visit Charges Inpatient E&M: 38340 Init Hosp L2
[2023-01-20] MEDS: Clopidogrel Bisulfate 300 MG Tablet PO (17:16)
[2023-01-20] MEDS: Ceftriaxone 1 GM/50 ML BAG IV (17:16)
[2023-01-20] MEDS: Atorvastatin Calcium 80 MG Tablet PO (19:19)
[2023-01-21 05:01] VITALS: BP 116/54; PULSE 65; RESP 18; TEMP 36.7; O2SAT 96
[2023-01-21 05:47] VITALS: BMI 36.6
[2023-01-21 07:39] LABS: Absolute Lymphocyte Count 1.58 X10^3/uL (0.83-4.51); Absolute Neutrophil Count 3.8 X10^3/uL (2.0-7.7); Basophil# 0.07 X10^3/uL; Basophil% 1.1 % (0-1); Eosinophil# 0.29 X10^3/uL; Eosinophils% 4.5 % (0-5); Hematocrit 39.8 % (37-47); Hemoglobin 12.7 g/dL (12.0-15.0); Lymphocyte # 1.58 X10^3/ul (0.83-4.51); Lymphocyte % 24.7 % (19-41); Mean Corp Hgb Conc 31.9 g/dL (32-36); Mean Corpuscular Hgb 29.3 pg (27.0-32.0); Mean Corpuscular Volume 91.9 fL (81-99); Mean Platelet Vol. 10.4 fl (6.2-12.0); Monocyte# 0.69 X10^3/uL; Monocyte% 10.8 % (0-10); NRBC Flagged by Analyzer 0 % (0-5); Neutrophil # 3.76 X10^3/uL (2.7-7.7); Neutrophil % 58.7 % (47-70); Platelet Count 270 K/mm3 (150-450); RBC Distribution Width CV 13.4 % (11.6-14.6); RBC Distribution Width SD 45.5 fl (35.1-43.9); Red Blood Count 4.33 M/mm3 (4.2-5.4); White Blood Count 6.4 K/mm3 (4.4-11.0)
[2023-01-21 08:25] LABS: ALB/GLOB Ratio 0.8 RATIO (0.9-2.4); AST(SGOT) 19 U/L (15-37); Alanine Aminotransfer ALT/SGPT 20 U/L (13-56); Albumin, Serum 3.4 g/dL (3.2-5.0); Alkaline Phosphatase 69 U/L (45-117); Anion Gap 6 (5-15); BUN 14 mg/dL (7-18); Calcium,Total 9.4 mg/dL (8.5-10.1); Chloride 109 mmol/L (98-107); Cholesterol 187 mg/dL (200); Creatinine, Serum 0.74 mg/dL (0.55-1.02); EST Glomerular Filtration Rate 81 mL/min (>60); Est Glom Filt Rate - Afr Amer 98 mL/min (>60); Estimated Creatinine Clearance 39.59 ml/min; Globulin 4.1 g/dL (2.2-4.2); Glucose 109 mg/dL (74-106); High Density Lipoprotein 69 mg/dL; Magnesium 2.5 mg/dL (1.6-2.6); Phosphorus 3.3 mg/dL (2.5-4.9); Potassium 4.2 mmol/L (3.5-5.1); Protein, Total 7.5 g/dL (6.4-8.2); Sodium Level 140 mmol/L (136-145); Thyroid Stim Hormone (TSH) 3.43 uIU/mL (0.358-3.74); Triglycerides 92 mg/dL; Very Low Density Lipoprotein 18 mg/dL (5-40)
[2023-01-21] MEDS: Ceftriaxone 1 GM/50 ML BAG IV (08:52)
[2023-01-21] MEDS: Clopidogrel Bisulfate 75 MG Tablet PO (08:52)
[2023-01-21] MEDS: Escitalopram Oxalate 10 MG Tablet PO (08:52)
[2023-01-21] MEDS: Atenolol 50 MG Tablet PO (08:53)
[2023-01-21] MEDS: Aspirin 81 MG TAB.CHEW PO (08:53)
[2023-01-21] MEDS: Pantoprazole Sodium 20 MG Tablet PO (08:53)
[2023-01-21] MEDS: Acetaminophen 500 MG Tablet 1000 MG PO (08:53)
[2023-01-21] MEDS: Enoxaparin 40 MG/0.4 ML Syringe SC (08:54)
[2023-01-21 08:59] LABS: Hemoglobin A1c 5.3 % (3.8-5.6)
[2023-01-21 10:56] VITALS: BP 122/46; PULSE 62; RESP 18; TEMP 36.8; O2SAT 93
--- NOTE | 2023-01-21 12:11 | DS.PCM_ITS ---
Providers Date of Admission: 01/20/23 Date of Discharge: 01/21/23 Primary Care Physician: Dr. Flaco Lee MD Reason For Visit: TIA Diagnosis Discharge Diagnosis (1) Dysarthria: Status: Acute Code(s): R47.1 - Dysarthria and anarthria (2) Right hand weakness: Status: Acute Code(s): R29.898 - Other symptoms and signs involving the musculoskeletal system (3) UTI (urinary tract infection): Status: Acute Code(s): N39.0 - Urinary tract infection, site not specified Medications at Discharge Home Medications atenolol 50 mg tablet 50 mg PO DAILY blood pressure 06/16/13 glucosamine 750 bf-ghkqfphnys-nuj no.1 625 mg-C 30 jx-dsnw-iinh tablet 1 ea PO DAILY SUPPLEMENT 07/02/16 sumatriptan succinate 100 mg tablet 100 mg PO .X1 PRN PRN Migraine Symptoms 07/02/16 nitroglycerin 0.4 mg sublingual tablet 0.4 mg sublingual Q5-15M PRN Chest Pain 11/09/18 escitalopram oxalate 10 mg tablet 10 mg PO DAILY ANTIDEPRESSANT 05/09/19 omeprazole 20 mg capsule,delayed release 20 mg PO DAILY acid reflux 05/09/19 acetaminophen 500 mg tablet 1,000 mg PO DAILY pain 02/19/22 zinc acetate 25 mg (zinc) capsule 25 mg PO DAILY supplement 04/05/22 multivitamin 1 tab PO DAILY health maintenance 01/20/23 aspirin 81 mg chewable tablet 81 mg PO BREAKFAST #0 tabs 01/21/23 atorvastatin 80 mg tablet 80 mg PO QHS #30 tabs 01/21/23 clopidogrel 75 mg tablet 75 mg PO DAILY #21 tabs 01/21/23 Hospital Course Procedures 2-D Echocardiogram and - (CTA head and neck/CT brain/MRI brain) Summary of Care Provided Minutes Spent on Discharge: 38 Hospital Course: Mrs. Meléndez is a 77-year-old white female who presented to the emergency department at [facility] on 01/20/2023 with dysarthria and right- handed weakness. The patient reported she woke up on the morning of presentation and felt her normal self. She called a friend on the phone later in the morning and felt like she could not get her words out normally. She indicated it just felt like her speech was off. She also reported feeling very warm at that time. After this episode she felt normal again and went with her to his doctor's appointment and while she was there she had difficulty picking up and holding onto her purse 3 separate times in a row which was very unusual for her. She indicated she had no baseline issues with her right hand. She denied any noted feeling of weakness or sensory changes but indicated that she could just not hold onto her purse correctly. At that time her 's physician's office called the EMS and they were concerned she was having strokelike symptoms and brought her to the emergency department. Upon arrival to the emergency department she was asymptomatic and has been so since admission. She has no history of stroke or TIA. She did report a history of migraine headaches however she was not having any headache at the time of presentation. She complained of some urinary frequency and dysuria but does have chronic interstitial cystitis at baseline. Stroke team was not called as she was asymptomatic on presentation. Vital signs on presentation demonstrated temperature of 98.8, heart rate 65, blood pressure 136/61, respiratory rate 16, oxygen saturations 96% on room air.? CBC was overall unremarkable showing only a chronic stable anemia with a hemogl obin of 11.9 which was higher than her previous.? Coags were normal.? Chemistry panel was unremarkable.? Glucose was 101.? Liver functions normal.? Her urine was somewhat suggestive of infection being positive for nitrites and leuk esterase.? Small amount of white cells and rare bacteria.? Culture was sent.? CT of the brain was unremarkable for any acute findings.? CTA of the head and neck was unremarkable for any stenosis or blockages.? EKG was normal sinus rhythm with normal intervals and no ST-T wave changes concerning for acute ischemia. She was admitted to the medical floor for TIA/stroke work-up. Upon admission her NIH remained negative throughout her hospital course. We placed her on aspirin and Plavix with a 300 mg load given on the . MRI was performed and showed no acute abnormalities. Echocardiogram showed &&&. she was evaluated by neurology and they felt that this was likely TIA versus complex migraine without headache. Given her risk factors and the above findings they recommended ongoing aspirin and Plavix for 21 days. After 21 days aspirin alone. Recommended continuing a statin for now and checking an event monitor at the time of discharge. Outpatient neurology follow-up was also recommended. Patient was able to be discharged home in stable condition on 01/21/2023. Prescription for Plavix and Lipitor was sent to the local pharmacy. She was given referral to call for a follow-up with neurology either later today or on Tuesday. I have asked her to follow-up with her primary care physician within the next 1 to 2 weeks. Of note her initial UA was suggestive of infection but urine culture showed contamination and no infection. She was empirically started on ceftriaxone but this was discontinued at discharge. Discharge diagnoses: TIA with dysarthria and right hand weakness GERD Mitral valve prolapse Mitral regurgitation History of ventricular ectopy Chronic pain Fibromyalgia History of interstitial cystitis Morbid obesity Weight / BMI Weight Weight: 93.7 kg Body Mass Index (BMI) 36.6 ABG / Lab / Microbiology Data Result Diagrams: 01/21/23 07:00 01/21/23 07:00 Laboratory: Laboratory Results - last 24 hr 01/20/23 12:25: Urine Color Yellow, Urine Clarity Sl. Cloudy, Urine pH 7.0, Ur Specific [place] 1.005, Urine Protein 15 H, Urine Glucose (UA) Normal, Urine Ketones Negative, Urine Occult Blood Negative, Urine Nitrite Positive H, Urine Bilirubin 3 H, Urine Urobilinogen 4 H, Ur Leukocyte Esterase 100 H, Urine RBC 0 SEEN, Urine WBC 0-5 SEEN, Ur Squamous Epith Cells 0-5 SEEN, Urine Bacteria RARE, Urine Mucus 0 SEEN 01/21/23 07:00: WBC 6.4, RBC 4.33, Hgb 12.7, Hct 39.8, MCV 91.9, MCH 29.3, MCHC 31.9 L, RDW Std Deviation 45.5 H, RDW Coeff of Laina 13.4, Plt Count 270, MPV 10.4, Immature Gran % (Auto) 0.200, Neut % (Auto) 58.7, Lymph % (Auto) 24.7, [place] % (Auto) 10.8 H, Eos % (Auto) 4.5, Baso % (Auto) 1.1 H, Absolute Neuts (auto) 3.8, Absolute Lymphs (auto) 1.58, Nucleated RBC % 0 01/21/23 07:00: Sodium 140, Potassium 4.2, Chloride 109 H, Carbon Dioxide 25.0, Anion Gap 6, BUN 14, Creatinine 0.74, Estim Creat Clear Calc 39.59, Est GFR (MDRD) Af Amer 98, Est GFR (MDRD) Non-Af 81, BUN/Creatinine Ratio 19.0, Glucose 109 H, Calcium 9.4, Phosphorus 3.3, Magnesium 2.5, Total Bilirubin 0.60, AST 19, ALT 20, Alkaline Phosphatase 69, Total Protein 7.5, Albumin 3.4, Globulin 4.1, Albumin/Globulin Ratio 0.8 L, Triglycerides 92, Cholesterol 187, LDL Cholesterol 100, VLDL Cholesterol 18, HDL Cholesterol 69, TSH 3.43 01/21/23 07:00: Hemoglobin A1c 5.3 Microbiology: Microbiology 01/20/23 12:25 Urine, Catheterized Urine Culture - Preliminary Mixed Gram Pos & Gram Neg Org Radiography Diagnostic Testing: Radiology Impression Brain CT 01/20/23 11:18 IMPRESSION: Chronic involutional changes of the brain. Electronically Signed: Miguel Hightower MD at 12:24 EDT , Brain MRI 01/20/23 13:14 IMPRESSION: Moderate periventricular white matter ischemic change without evidence for acute infarct.. Electronically Signed: Ted Oliveira MD at 16:24 EDT , Head/Neck CTA 01/20/23 13:14 IMPRESSION: Minimal calcific plaque is seen at the origin of the right and left internal carotid arteries. Electronically Signed: Miguel Hightower MD at 13:52 EDT , ADDENDUM: 01/20/23 1409 IMPRESSION: Minimal calcific plaque is seen at the origin of the right and left internal carotid arteries. N.B. : The above Results were Read Back by Miguel Hightower MD to Jorden Karimi MD, and understanding confirmed on 01/20/2023 14:02:41 (ET). Electronically Signed: Miguel Hightower MD at 13:52 EDT , D/C Instructions Discharge Diet: Low fat / Low cholesterol Discharge Activity: Return to Normal Activity Meaningful Use Info Meaningful Use Diagnoses (Choose all that apply): None applicable Discharge Plan Admission Admit Date/Time: 01/20/23 13:04 Primary Reason for Your Visit: Speech changes and Dropping things with R hand Attending Provider: Veronica Louise Primary Care Provider: Flaco Lee Instructions Patient Instructions: TIA Dc Discharge Orders/Prescriptions Prescriptions: New aspirin 81 mg Tablet,Chewable 81 mg PO BREAKFAST Qty: 0 0RF atorvastatin 80 mg Tablet 80 mg PO QHS Qty: 30 1RF clopidogrel 75 mg Tablet 75 mg PO DAILY Qty: 21 0RF Continued nitroglycerin 0.4 mg tablet, sublingual 0.4 mg SUBLINGUAL Q5-15M PRN (Reason: Chest Pain) omeprazole 20 mg capsule,delayed release(DR/EC) 20 mg PO DAILY zinc acetate 25 mg (zinc) capsule 25 mg PO DAILY atenolol 50 MG tablet 50 mg PO DAILY sumatriptan succinate 100 MG tablet 100 mg PO .X1 PRN PRN (Reason: Migraine Symptoms) [id number]-[id number]-[id number]-bosw 1 EACH tablet 1 ea PO DAILY escitalopram oxalate 10 mg tablet 10 mg PO DAILY acetaminophen 500 mg Tablet 1,000 mg PO DAILY multivitamin Tablet 1 tab PO DAILY Other Ambulatory Orders: 30 Day Event Recorder Preventi (Urgent) Timeframe: 1 Day Facility: [facility] - Location: Cardiovascular Services Ordered By: Dr. Veronica Louise Referrals / Follow Up: Ronen Kimball MD [Non-Staff -Ordering Privileges] - Within 2 Weeks Flaco Lee MD [Primary Care Provider] - Within 2 Weeks Disposition Disposition (needs filled in before D/C Order can be placed): Home, Self Care Charges/Coding Visit Charges Inpatient E&M: 96163 Disch Hosp >30min
--- NOTE | 2023-01-21 13:35 | CASEMGMT ---
RN CM updated by therapy that no therapy is recommended at discharge. RN CM to patient's room to discuss discharge needs. Patient denies needs for at discharge. Patient had no further questions or concerns at this time.
--- NOTE | 2023-01-21 13:57 | CASEMGMT ---
SW completed a PHQ9 with patient as she had a TIA. Patient scored a 3 which indicates minimal depression. Patient declined resources for counseling. Patient said the only reason she has felt this way is because her had his knee done and she has not been able to get out and about for awhile. [place] [employer]
== END 2023-01-21 14:36 | disposition home or self-care (01) ==
LOC: ED 13:12 → PCU 13:21
PROVIDERS: Physician Assistant; Admitting Provider Internal Medicine; Emergency Provider Emergency Medicine; PCP Family Medicine; Visit Provider Internal Medicine
DX: G45.9 Transient cerebral ischemic attack, unspecified (principal); E66.01 Morbid (severe) obesity due to excess calories; Z68.41 Body mass index [BMI] 40.0-44.9, adult; N39.0 Urinary tract infection, site not specified; K21.9 Gastro-esophageal reflux disease without esophagitis; F41.9 Anxiety disorder, unspecified; D64.9 Anemia, unspecified; I08.1 Rheumatic disorders of both mitral and tricuspid valves; K58.9 Irritable bowel syndrome, unspecified; G89.29 Other chronic pain; R47.1 Dysarthria and anarthria; Z79.899 Other long term (current) drug therapy; R53.1 Weakness; R47.9 Unspecified speech disturbances; R29.700 NIHSS score 0; M79.7 Fibromyalgia; N30.10 Interstitial cystitis (chronic) without hematuria
CPT/HCPCS: 70450; 70496; 70498; 70551; 80048; 80053; 80061; 80076; 81001; 83036; 83735; 84100; 84443; 85025; 85610; 85730; 87086; 87088; 93005; 93306; 94668; 94762; 96365; 96366; 96372; 99221; 99285; Q9967; A4216; G0378

== ENCOUNTER → 2023-02-18 | Outpatient (CLI) | payer MEDICARE, SELFPAY ==
--- NOTE | 2023-02-18 18:54 | STRESSREP ---
Stress Test Report Pharmacologic myocardial perfusion stress test. 77-year-old lady with a history of atrial fibrillation and wide-complex tachycardia Resting EKG demonstrates sinus rhythm with a rate of 66 bpm. Resting blood pressure is 172/70 mmHg. 0.4 mg of regadenoson was infused per usual protocol followed by rapid intravenous saline flush injection. Continuous EKG monitoring was performed. The maximum heart rate was 76 bpm which was 52% of max impacted heart rate the maximum workload was 1 metabolic equivalent. At rest there were no ST or T wave changes noted to suggest ischemia and at peak infusion nonspecific ST changes were noted which did not meet the criteria for ischemia. No clinical angina is noted. The final blood pressure was 134/72 mmHg. Myocardial perfusion protocol. 12.0 mCi of technetium 99m sestamibi was injected at rest. 0.4 mg of regadenoson was infused per usual protocol. At peak infusion 36.0 mCi of technetium 99m sestamibi was injected stress images were obtained stress and rest images were reconstructed and compared in the short axis vertical long and horizontal long axis. Gated images were also obtained. Perfusion SPECT analysis: Review of the stress images demonstrate normal uptake of tracer noted in all areas of the myocardium. The resting images similar demonstrated normal uptake of tracer noted in all areas of the myocardium. No areas of reversibility are noted to suggest ischemia and no previous infarct is noted. Gated SPECT analysis: The gated ejection fraction is 66%. Conclusion: Normal pharmacologic myocardial perfusion stress test. Preserved ejection fraction.
== END | disposition home or self-care (01) ==
PROVIDERS: PCP Family Medicine; Referring Provider Nurse Practitioner Family; Visit Provider Nurse Practitioner Family
DX: I47.29 Other ventricular tachycardia (principal); I34.0 Nonrheumatic mitral (valve) insufficiency; I34.1 Nonrheumatic mitral (valve) prolapse; I49.3 Ventricular premature depolarization; R94.31 Abnormal electrocardiogram [ECG] [EKG]
CPT/HCPCS: 78452; 93017; A9500; A4216; J2785

== ENCOUNTER → 2023-02-28 | Outpatient (CLI) | payer MEDICARE, SELFPAY ==
--- NOTE | 2023-02-28 12:33 | US_ITS ---
INDICATION: UTI EXAMINATION: Ultrasound US Kidney(s) complete (eg, kidneys and bladder) TECHNIQUE: Hdz scale and color doppler images were obtained of the kidneys. COMPARISON: CTA abdomen and pelvis from 07/09/2018. FINDINGS: RIGHT KIDNEY: 10.2 x 4.5 x 4.2 cm. Normal size. The cortex measures 1.4 cm. Normal parenchymal echogenicity. 1.2 cm simple cyst in the midpole. No echogenic calculi or hydronephrosis. LEFT KIDNEY: 10.5 x 5.0 x 5.6 cm. Normal size. The cortex measures 1.6 cm. Normal parenchymal echogenicity. No parenchymal masses. No echogenic calculi or hydronephrosis. URINARY BLADDER: The bladder is under distended but otherwise demonstrates normal appearance with no acute findings. There is soft tissue indenting the bladder base measuring 2.6 x 3.0 x 1.5 cm. US/Kidney and Bladder IMPRESSION: 1. Normal appearance of the kidneys. 2. Soft tissue indenting the bladder base may relate to residual uterine or cervical tissue from recent hysterectomy. 3. No acute findings in the bladder. Electronically Signed: Ish Bravo DO at 15:55 EDT ,
== END | disposition home or self-care (01) ==
LOC: US 12:30
PROVIDERS: PCP Family Medicine; Referring Provider Urology; Visit Provider Urology
DX: N39.0 Urinary tract infection, site not specified (principal)
CPT/HCPCS: 76770

== ENCOUNTER 2023-03-24 07:40 | Day surgery (SDC) | payer MEDICARE, SELFPAY ==
[2023-03-24] VITALS (7 sets, daily range): BP systolic 120–133; BP diastolic 51–65; PULSE 60–69; RESP 16–18; TEMP 36.5–37.2; O2SAT 92–96; BMI 37.0
[2023-03-24] MEDS: Lactated Ringers 1,000 ML 15 ML IV (08:54)
[2023-03-24] MEDS: Cefazolin 2 GM in 0.9% Normal Saline 100 ML IV (09:36)
--- NOTE | 2023-03-24 10:15 | DCINST_ITS ---
Discharge Instructions Diet Discharge Diet: No restrictions Activity Discharge Activity: Return to Normal Activity Dressing / Incision Call your doctor if your incision/area has: Continuous Slow Oozing and Sudden Increased Bleeding Call your doctor if you observe: Fever of 101 or Higher, Inability to urinate and Inability to have a bowel movement Follow Up Care Please Follow Up With: Susana Ayala MD When: The office will call the patient for follow-up appointment. Test Results: Test results from this visit will be discussed in further detail at your follow- up appointment, if applicable. Discharge Plan Admission Attending Provider: Susana Ayala Primary Care Provider: Flaco Lee Discharge Orders/Prescriptions Prescriptions: New cephalexin [cephalexin] 500 mg capsule 500 mg PO Q12 3 Days Qty: 6 0RF Continued nitroglycerin 0.4 mg tablet, sublingual 0.4 mg SUBLINGUAL Q5-15M PRN (Reason: Chest Pain) omeprazole 20 mg capsule,delayed release(DR/EC) 20 mg PO DAILY zinc acetate 25 mg (zinc) capsule 25 mg PO DAILY sumatriptan succinate 100 MG tablet 100 mg PO .X1 PRN PRN (Reason: Migraine Symptoms) escitalopram oxalate 10 mg tablet 10 mg PO DAILY [id number] [id number] mg tablet 1 tab PO DAILY acetaminophen 500 mg Tablet 1,000 mg PO DAILY multivitamin Tablet 1 tab PO DAILY atorvastatin 80 mg Tablet 80 mg PO QHS Qty: 30 1RF phenazopyridine 100 mg tablet 100 mg PO DAILY caffeine 200 mg tablet 100 mg PO DAILY cranberry 500 mg capsule 500 mg PO TID Rx Instructions: administer with meals ascorbic acid (vitamin C) [C-500] 500 mg tablet 500 mg PO DAILY metoprolol tartrate 50 mg tablet 50 mg PO BID Qty: 60 12RF Eliquis 5 mg tablet 5 mg PO BID Qty: 60 11RF Referrals / Follow Up: Flaco Lee MD [Primary Care Provider] - Disposition Disposition (needs filled in before D/C Order can be placed): Home, Self Care
--- NOTE | 2023-03-24 10:17 | OP.PCM_ITS ---
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 Informed consent was obtained. The patient was taken to the operating room and placed on the operating room table. Anesthesia monitored the head, neck, airway, IV access and vital signs throughout the case. Once anesthesia was appropriately ministered, the patient was placed into dorsolithotomy position was prepped and draped in usual sterile fashion. At this time the urethral dilators were used in sequence from 14 [place] through 28 [place] with cracking and bleeding of the urethra. The 21 [place] cystoscope was inserted through the urethra under direct visualization into the urinary bladder. The urethra was otherwise normal. The bladder mucosa was visualized in its entirety and found to be without erythema, ulceration, mass, foreign body. A small cystocele was noted consistent with the exam in the office. The ureteral orifices were located in the correct anatomic position. At this time the patient's bladder was emptied and the cystoscope was removed. She was awakened and taken to the recovery room in good condition. There were no complications during this procedure. Grafts/Implants Used: None Complications None Admit VTE Documentation VTE Present on Admission: Yes VTE Mechan Device Prophylaxis: SCD's VTE Pharm Prophylaxis ordered?: Yes
== END 2023-03-24 11:02 | disposition home or self-care (01) ==
LOC: SDC 07:40 → AC 07:42
PROVIDERS: PCP Family Medicine; Referring Provider Urology; Visit Provider Urology
PROC: 0T7D8ZZ Dilation of Urethra, Via Natural or Artificial Opening Endoscopic (ICD-10-PCS; CPT 52281; principal; 2023-03-24 09:20)
DX: N35.82 Other urethral stricture, female (principal); I48.0 Paroxysmal atrial fibrillation; N32.81 Overactive bladder; N95.2 Postmenopausal atrophic vaginitis; R35.1 Nocturia; N76.0 Acute vaginitis; N81.10 Cystocele, unspecified; N81.6 Rectocele; E78.00 Pure hypercholesterolemia, unspecified; K58.9 Irritable bowel syndrome, unspecified; M79.7 Fibromyalgia; K21.9 Gastro-esophageal reflux disease without esophagitis; Z79.01 Long term (current) use of anticoagulants; Z79.02 Long term (current) use of antithrombotics/antiplatelets; Z79.82 Long term (current) use of aspirin; Z79.899 Other long term (current) drug therapy; Z86.73 Personal history of transient ischemic attack (TIA), and cerebral infarction without residual deficits
CPT/HCPCS: 52281; 00910; J7120; J2405

== ENCOUNTER → 2023-04-05 | Outpatient (CLI) | payer MEDICARE, SELFPAY ==
--- NOTE | 2023-04-05 12:38 | BI_ITS ---
MAMMOGRAPHY - BILATERAL SCREENING REASON FOR EXAM: Female, 77 years old. Routine annual screening examination. PERTINENT HISTORY: Non-contributory. TECHNIQUE: Digital bilateral breast teja (3D mammographic acquisition) in the CC and MLO projections. 2-D mediolateral oblique (MLO) and craniocaudad (CC) views of both breasts were obtained. CAD: Full Field Digital Mammography with Computer Added Detection was performed. COMPARISON: Comparison is made with prior study March 29, 2022 and March 09, 2021. FINDINGS: Breast Composition: There are scattered areas of fibroglandular density. There are no dominant masses or suspicious calcifications. Asymmetrical breast tissue with more breast tissue is seen in the left breast as compared to the right side. Stable retraction of the right areolar complex. This is in keeping with prior right excisional breast biopsy. No other significant abnormalities are identified. There has been no significant change since the prior study. BI/SCRN MAMM (CAD)W/TEJA BILAT IMPRESSION: Stable bilateral screening mammogram. Yearly follow-up mammogram recommended. (A) ASSESSMENT CATEGORY: BIRADS Category 2: Benign. A letter regarding these results will be sent to the patient by the facility within 30 days. Approximately 10% of breast cancers are not detected by mammography. A normal mammogram should not delay biopsy of a clinically suspicious abnormality. [id number] Electronically Signed: Miguel Hightower MD at 13:53 EDT ,
== END | disposition home or self-care (01) ==
LOC: OPBI 12:37
PROVIDERS: PCP Family Medicine; Referring Provider Family Medicine; Visit Provider Family Medicine
DX: Z12.31 Encounter for screening mammogram for malignant neoplasm of breast (principal)
CPT/HCPCS: 77063; 77067

== ENCOUNTER → 2023-11-18 | Outpatient (CLI) | payer MEDICARE, SELFPAY ==
[2023-11-18 11:06] LABS: Erythrocyte Sedimentation Rate 15 mm/hr (0-30)
[2023-11-18 11:08] LABS: Absolute Lymphocyte Count 1.46 X10^3/uL (0.83-4.51); Absolute Neutrophil Count 5.2 X10^3/uL (2.0-7.7); Basophil# 0.06 X10^3/uL; Basophil% 0.8 % (0-1); Eosinophil# 0.24 X10^3/uL; Eosinophils% 3.1 % (0-5); Hemoglobin 12.2 g/dL (12.0-15.0); Lymphocyte # 1.46 X10^3/ul (0.83-4.51); Lymphocyte % 19.2 % (19-41); Mean Corp Hgb Conc 31.3 g/dL (32-36); Mean Corpuscular Hgb 29.2 pg (27.0-32.0); Mean Corpuscular Volume 93.3 fL (81-99); Mean Platelet Vol. 11.1 fl (6.2-12.0); Monocyte# 0.65 X10^3/uL; Monocyte% 8.5 % (0-10); NRBC Flagged by Analyzer 0 % (0-5); Neutrophil # 5.19 X10^3/uL (2.7-7.7); Neutrophil % 68.1 % (47-70); Platelet Count 262 K/mm3 (150-450); RBC Distribution Width CV 13.6 % (11.6-14.6); RBC Distribution Width SD 46.4 fl (35.1-43.9); Red Blood Count 4.18 M/mm3 (4.2-5.4); White Blood Count 7.6 K/mm3 (4.4-11.0)
[2023-11-18 11:27] LABS: Vitamin B12 499 pg/mL (211-911)
[2023-11-18 12:05] LABS: Amylase 18 U/L (25-115); CRP 4.77 mg/L (0.0-3.0); Free T3 2.5 pg/mL (2.18-3.98); LDH 203 U/L (84-246); Lipase 20 U/L (13-75); T4 Free Direct 0.89 ng/dL (0.76-1.46); Thyroid Stim Hormone (TSH) 1.91 uIU/mL (0.358-3.74)
[2023-11-21 16:09] LABS: ACCA 67 units (0-90); AMCA 23 units (0-100); Albumin 3.6 g/dL (2.9-4.4); Alpha-1-Globulins 0.3 g/dL (0.0-0.4); Alpha-2-Globulins 0.8 g/dL (0.4-1.0); Endomysial Antibody IgA Negative (Negative); Gamma Globulin 1.3 g/dL (0.4-1.8); Gastrin, Serum 66 pg/mL (0-115); IMMUNOFIXATION RESULT,S Comment: (.); IgG, Quant 1482 mg/dL (586-1602); Immunoglobulin A 353 mg/dL (64-422); Immunoglobulin G, Subclass 1 932 mg/dL (248-810); Immunoglobulin G, Subclass 2 389 mg/dL (130-555); Immunoglobulin G, Subclass 3 86 mg/dL (15-102); Immunoglobulin G, Subclass 4 61 mg/dL (2-96); Immunoglobulin M 41 mg/dL (26-217); PROEL- TOTAL PROTEIN 7.1 g/dL (6.0-8.5); gASCA 26 units (0-50); t-Transglutaminase IgA 2 U/mL (0-3)
[2023-11-24 16:10] LABS: Beef <0.10 kU/L (Class 0); Chocolate <0.10 kU/L (Class 0); Codfish <0.10 kU/L (Class 0); Corn <0.10 kU/L (Class 0); Egg, Whole <0.10 kU/L (Class 0); Milk (Cow) <0.10 kU/L (Class 0); Mussels <0.10 kU/L (Class 0); Peanut <0.10 kU/L (Class 0); Pork <0.10 kU/L (Class 0); Salmon <0.10 kU/L (Class 0); Shrimp <0.10 kU/L (Class 0); Soybean <0.10 kU/L (Class 0); Tuna <0.10 kU/L (Class 0); Wheat <0.10 kU/L (Class 0)
[2023-12-07 14:43] LABS: ALCA 8 units (0-60)
== END | disposition home or self-care (01) ==
PROVIDERS: PCP Family Medicine; Referring Provider Internal Medicine Gastroenterology; Visit Provider Internal Medicine Gastroenterology
DX: K90.0 Celiac disease (principal); I48.0 Paroxysmal atrial fibrillation; I34.1 Nonrheumatic mitral (valve) prolapse
CPT/HCPCS: 36415; 82150; 82607; 82746; 82784; 82787; 82941; 83516; 83615; 83690; 84165; 84439; 84443; 84481; 85025; 85652; 86003; 86005; 86036; 86140; 86255; 86334; 86671

== ENCOUNTER 2023-12-02 13:25 | Outpatient (CLI) | payer MEDICARE, SELFPAY ==
[2023-12-02 15:43] LABS: Rheumatoid Factor < 10.0 IU/mL (<15)
[2023-12-05 14:08] LABS: Anti-Mitochondrial AB 95.4 Units (0.0-20.0)
[2023-12-05 17:07] LABS: Anti-Smooth Muscle ABS 9 Units (0-19); Endomysial Antibody IgA Negative (Negative); HEPATITIS B SURFACE AG Negative (Negative); Hep C Antibodies Non Reactive (Non Reactive); Hepatitis A IgM Antibody Negative (Negative); Hepatitis B Core AB IgM Negative (Negative); IgG, Quant 1407 mg/dL (586-1602); Immunoglobulin A 347 mg/dL (64-422); Immunoglobulin G, Subclass 1 898 mg/dL (248-810); Immunoglobulin G, Subclass 2 411 mg/dL (130-555); Immunoglobulin G, Subclass 3 88 mg/dL (15-102); Immunoglobulin G, Subclass 4 57 mg/dL (2-96); t-Transglutaminase IgA 3 U/mL (0-3)
== END 2023-12-02 23:59 | disposition home or self-care (01) ==
LOC: LAB 13:29
PROVIDERS: PCP Family Medicine; Referring Provider Internal Medicine Gastroenterology; Visit Provider Internal Medicine Gastroenterology
DX: K90.0 Celiac disease (principal)
CPT/HCPCS: 36415; 80074; 82784; 82787; 83516; 86255; 86431

== ENCOUNTER → 2024-01-04 | Outpatient (CLI) | payer MEDICARE, SELFPAY ==
--- NOTE | 2024-01-04 13:33 | MRI_ITS ---
EXAM: MR ABDOMEN WITHOUT INTRAVENOUS CONTRAST, MRCP PROTOCOL CLINICAL INDICATION: PBC workup TECHNIQUE: Multiplanar and multisequence MR images of the abdomen without intravenous contrast obtained with MRCP sequence. Three-dimensional post-processing reconstructions were performed. COMPARISON: No relevant prior studies available. FINDINGS: LOWER THORAX: Normal. No pleural effusion. LIVER: 12 mm cyst noted within hepatic segment 8. Additional smaller cysts noted within hepatic segment 4. GALLBLADDER AND BILE DUCTS: Gallbladder is absent. Common bile duct is normal in caliber for postcholecystectomy patient measuring 7 mm in maximum diameter. PANCREAS: Normal. No focal cystic mass. No pancreatic duct dilation. SPLEEN: Normal. Non-enlarged. ADRENALS: Normal. No nodules. KIDNEYS AND URETERS: 8 mm right renal cyst and a 2 mm left renal cysts. Normal renal size and position. No hydronephrosis. INTRAPERITONEAL SPACE: Normal. No ascites or other fluid collection. VASCULATURE: Normal. Abdominal aorta is non-dilated. LYMPH NODES: No enlarged lymph nodes. MRI/MRCP Abdomen without Contrast IMPRESSION: 1. Simple hepatic cysts. 2. Normal biliary tree for postcholecystectomy patient. Electronically Signed: Mo Brooks MD at 15:10 EDT ,
== END | disposition home or self-care (01) ==
LOC: MRI 13:13
PROVIDERS: PCP Family Medicine; Referring Provider Internal Medicine Gastroenterology; Visit Provider Internal Medicine Gastroenterology
DX: K74.3 Primary biliary cirrhosis (principal)
CPT/HCPCS: 74181

== ENCOUNTER → 2024-02-01 | Outpatient (CLI) | payer MEDICARE, SELFPAY ==
[2024-02-06 08:07] LABS: Pancreatic Elastase, Fecal > 800 (>200)
[2024-02-09 18:08] LABS: Calprotectin, Stool 123 ug/g (0-120); Fats, Neutral Normal (.); Fats, Total Normal (.)
== END | disposition home or self-care (01) ==
PROVIDERS: PCP Family Medicine; Referring Provider Internal Medicine Gastroenterology; Visit Provider Internal Medicine Gastroenterology
DX: R19.7 Diarrhea, unspecified (principal)
CPT/HCPCS: 82274; 82653; 82705; 83630; 83993; 87177; 87209; 87329

== ENCOUNTER → 2024-04-26 | Outpatient (CLI) | payer MEDICARE, SELFPAY ==
[2024-04-26 11:22] LABS: AST(SGOT) 15 U/L (15-37); Alanine Aminotransfer ALT/SGPT 16 U/L (13-56); Albumin, Serum 2.9 g/dL (3.2-5.0); Alkaline Phosphatase 65 U/L (45-117); Bilirubin, Direct 0.16 mg/dL (0.00-0.30); Cholesterol 111 mg/dL (200); Globulin 4.2 g/dL (2.2-4.2); High Density Lipoprotein 65 mg/dL; Protein, Total 7.1 g/dL (6.4-8.2); Triglycerides 83 mg/dL; Very Low Density Lipoprotein 17 mg/dL (5-40)
== END | disposition home or self-care (01) ==
PROVIDERS: PCP Family Medicine; Referring Provider Nurse Practitioner Family; Visit Provider Nurse Practitioner Family
DX: E78.00 Pure hypercholesterolemia, unspecified (principal)
CPT/HCPCS: 36415; 80061; 80076

== ENCOUNTER → 2024-05-04 | Outpatient (CLI) | payer MEDICARE, SELFPAY ==
--- NOTE | 2024-05-04 10:41 | BI_ITS ---
MAMMOGRAPHY - BILATERAL SCREENING REASON FOR EXAM: Female, 78 years old. Routine annual screening examination. PERTINENT HISTORY: Non-contributory. History of bilateral excisional breast biopsies. Chronic inversion of the right areola. TECHNIQUE: Digital bilateral breast teja (3D mammographic acquisition) in the CC and MLO projections. 2-D mediolateral oblique (MLO) and craniocaudad (CC) views of both breasts were obtained. CAD: Full Field Digital Mammography with Computer Added Detection was performed. COMPARISON: Comparison is made with prior study April 05, 2023 and March 29, 2022. FINDINGS: Breast Composition: There are scattered areas of fibroglandular density. There are no dominant masses or suspicious calcifications. Stable asymmetrical breast tissue where more breast tissue is seen in the left breast as compared to the right side. Stable retraction of the right areolar complex. No other significant abnormalities are identified. There has been no significant change since the prior study. BI/SCRN MAMM (CAD)W/TEJA BILAT IMPRESSION: Stable bilateral screening mammogram. Yearly follow-up mammogram recommended. (A) ASSESSMENT CATEGORY: BIRADS Category 2: Benign. A letter regarding these results will be sent to the patient by the facility within 30 days. Approximately 10% of breast cancers are not detected by mammography. A normal mammogram should not delay biopsy of a clinically suspicious abnormality. [id number] Electronically Signed: Miguel Hightower MD at 11:10 EDT ,
== END | disposition home or self-care (01) ==
LOC: OPBI 10:37
PROVIDERS: PCP Family Medicine; Referring Provider Family Medicine; Visit Provider Family Medicine
DX: Z12.31 Encounter for screening mammogram for malignant neoplasm of breast (principal)
CPT/HCPCS: 77063; 77067

== ENCOUNTER → 2024-07-26 | Outpatient (CLI) | payer MEDICARE, SELFPAY ==
[2024-07-26 12:21] LABS: Absolute Lymphocyte Count 1.86 X10^3/uL (0.83-4.51); Absolute Neutrophil Count 5.1 X10^3/uL (2.0-7.7); Basophil# 0.07 X10^3/uL; Basophil% 0.9 % (0-1); Eosinophil# 0.17 X10^3/uL; Eosinophils% 2.1 % (0-5); Hematocrit 38.8 % (37-47); Hemoglobin 12.2 g/dL (12.0-15.0); Lymphocyte # 1.86 X10^3/ul (0.83-4.51); Lymphocyte % 23.5 % (19-41); Mean Corp Hgb Conc 31.4 g/dL (32-36); Mean Corpuscular Hgb 29.3 pg (27.0-32.0); Mean Platelet Vol. 10.5 fl (6.2-12.0); Monocyte# 0.68 X10^3/uL; Monocyte% 8.6 % (0-10); NRBC Flagged by Analyzer 0 % (0-5); Neutrophil # 5.13 X10^3/uL (2.7-7.7); Neutrophil % 64.6 % (47-70); Platelet Count 263 K/mm3 (150-450); RBC Distribution Width CV 13.5 % (11.6-14.6); RBC Distribution Width SD 46.2 fl (35.1-43.9); Red Blood Count 4.17 M/mm3 (4.2-5.4); White Blood Count 7.9 K/mm3 (4.4-11.0)
[2024-07-26 12:59] LABS: Anion Gap 4 (5-15); BUN 15 mg/dL (7-18); BUN/Creat Ratio 25.5 RATIO (10-20); Calcium,Total 9.4 mg/dL (8.5-10.1); Chloride 108 mmol/L (98-107); Creatinine, Serum 0.59 mg/dL (0.55-1.02); EST Glomerular Filtration Rate 105 mL/min (>60); Est Glom Filt Rate - Afr Amer 127 mL/min (>60); Glucose 99 mg/dL (74-106); Potassium 3.8 mmol/L (3.5-5.1); Sodium Level 140 mmol/L (136-145)
[2024-07-26 13:13] LABS: BNP,B-Type NATRIURETIC PEPTIDE 122.1 pg/mL (0-100)
== END | disposition home or self-care (01) ==
PROVIDERS: PCP Family Medicine; Referring Provider Nurse Practitioner Family; Visit Provider Nurse Practitioner Family
DX: R06.09 Other forms of dyspnea (principal)
CPT/HCPCS: 36415; 80048; 83880; 85025

== ENCOUNTER → 2024-08-20 | Outpatient (CLI) | payer MEDICARE, SELFPAY ==
--- NOTE | 2024-08-20 12:36 | ECHOD_ITS ---
Reason For Study: SHORTNESS OF BREATH Procedure This was a 2D Doppler, Color Flow transthoracic echocardiogram. Exam performed in department. Left Ventricle Normal LV size. Apical false tendon noted. Left ventricular systolic function is normal. The left ventricular ejection fraction is 60 %. No regional wall motion abnormalities noted. Right Ventricle Normal RV size. Normal systolic function. Atria The left atrium is moderately enlarged. Normal right atrium. Mitral Valve Mild mitral valve prolapse. Mild-Moderate (1-2+) eccentric mitral valve insufficiency. Tricuspid Valve Normal tricuspid valve. Mild tricuspid valve insufficiency. Pulmonary artery systolic pressure is 30 mmHg. Aortic Valve Trisinus/trileaflet aortic valve. Pulmonic Valve Normal pulmonic valve. Great Vessels Normal aortic root. The pulmonary artery is normal size. Inferior vena cava collapse with respiration. Pericardium/Pleural No pericardial effusion. MMode/2D Measurements & Calculations LVIDd: 5.4 cm IVSd: 1.3 cm LVOT diam: 2.0 cm LVIDs: 3.7 cm LVPWd: 1.2 cm LVOT area: 3.1 cm2 RVDd: 3.2 cm FS: 31.3 % asc Aorta Diam: 2.8 cm LAV(MOD-bp): 102.8 ml LVAd ap4: 21.3 cm2 LAV(MOD-bp) Indexed: 52.1 ml/m2 LVLd ap4: 6.5 cm LAV(MOD-sp2): 104.5 ml EDV(MOD-sp4): 56.8 ml LAV(MOD-sp4): 100.9 ml EDV(sp4-el): 59.4 ml LVAs ap4: 12.5 cm2 LVLs ap4: 5.7 cm ESV(MOD-sp4): 22.6 ml ESV(sp4-el): 23.1 ml EF(MOD-sp4): 60.2 % EF(sp4-el): 61.2 % LVAd ap2: 21.8 cm2 SV(MOD-sp4): 34.2 ml SV(MOD-sp2): 34.9 ml LVLd ap2: 6.9 cm SI(MOD-sp4): 17.3 ml/m2 SI(MOD-sp2): 17.7 ml/m2 EDV(MOD-sp2): 57.8 ml EDV(sp2-el): 58.7 ml LVAs ap2: 12.4 cm2 LVLs ap2: 5.6 cm ESV(MOD-sp2): 22.9 ml ESV(sp2-el): 23.1 ml EF(MOD-sp2): 60.4 % SV(sp4-el): 36.4 ml Ao sinus diam: 2.[address] Junction: 2.5 cm LA dimension(2D): 4.9 cm LA A4 area: 29.1 cm2 RA A4 area: 16.7 cm2 TAPSE: 1.3 cm Time Measurements MV dec time: 0.11 sec Doppler Measurements & Calculations MV E max surinder: 95.5 cm/sec Lat Peak E' Surinder: 13.6 cm/sec Med Peak E' Surinder: 11.4 cm/sec E/E' lat: 7.0 E/E' med: 8.4 Ao V2 max: 100.2 cm/sec LV V1 max: 96.7 cm/sec SV(LVOT): 50.1 ml Ao max P.0 mmHg LV V1 max P.8 mmHg Ao V2 mean: 76.1 cm/sec LV V1 mean P.1 mmHg Ao mean P.5 mmHg LV V1 mean: 69.1 cm/sec Ao V2 VTI: 15.6 cm LV V1 VTI: 15.9 cm AV (velocity ratio): 1.0 YANET(I,D): 3.2 cm2 YANET(V,D): 3.0 cm2 PA V2 max: 85.9 cm/sec TR max surinder: 249.9 cm/sec TR max P.0 mmHg ECHO/Echo Complete Interpretation Summary Normal LV size. Left ventricular systolic function is normal. The left ventricular ejection fraction is 60 %. The left atrium is moderately enlarged. Mild mitral valve prolapse. Mild-Moderate (1-2+) eccentric mitral valve insufficiency. Ordering Physician: Antonio San Referring Physician: Antonio San Performed By: Tosin Smith RDCS
== END | disposition home or self-care (01) ==
LOC: CVS 12:35
PROVIDERS: PCP Family Medicine; Referring Provider Nurse Practitioner Family; Visit Provider Nurse Practitioner Family
DX: R06.02 Shortness of breath (principal); I48.0 Paroxysmal atrial fibrillation; R06.09 Other forms of dyspnea; I34.0 Nonrheumatic mitral (valve) insufficiency
CPT/HCPCS: 93306

== ENCOUNTER → 2024-11-09 | Outpatient (CLI) | payer MEDICARE, SELFPAY ==
[2024-11-09 11:20] LABS: AST(SGOT) 24 U/L (<=31); Alanine Aminotransfer ALT/SGPT 15 U/L (<=34); Albumin, Serum 3.9 g/dL (3.4-4.8); Alkaline Phosphatase 74 U/L (35-104); Bilirubin, Direct 0.25 mg/dL (0.00-0.30); Globulin 3.4 g/dL (2.2-4.2); Protein, Total 7.2 g/dL (5.9-8.4); Total Bilirubin 0.51 mg/dL (0.00-1.30)
[2024-11-09 12:39] LABS: Cholesterol 121 mg/dL (<=200); High Density Lipoprotein 77 mg/dL; Low Density Lipoprotein Calc. 30 mg/dL; Triglycerides 72 mg/dL; Very Low Density Lipoprotein 14 mg/dL (5-40); cholesterol:hdl ratio screen 1.58
== END | disposition home or self-care (01) ==
LOC: LAB 09:37
PROVIDERS: PCP Family Medicine; Referring Provider Nurse Practitioner Family; Visit Provider Nurse Practitioner Family
DX: E78.00 Pure hypercholesterolemia, unspecified (principal)
CPT/HCPCS: 36415; 80061; 80076

== ENCOUNTER → 2025-01-16 | Outpatient (CLI) | payer MEDICARE, SELFPAY ==
--- NOTE | 2025-01-16 14:41 | RAD_ITS ---
PROCEDURE: CHEST PA AND LATERAL 01/16/2025 REASON FOR EXAM: PRE-OPERATIVE: [facility] TECHNIQUE: Frontal and lateral views of the chest. COMPARISON: None available FINDINGS: The lungs appear clear. Mild appearing vascular congestion suggestion. Hyperinflation. No pleural effusion. Cardiac silhouette is enlarged for technique. Atherosclerotic change of the aortic arch. Calcified node/s at the AP window. The visualized osseous structures appear within limits. RAD/Chest PA and Lateral IMPRESSION: No evidence of acute disease. Cardiac silhouette is enlarged for technique. Reading Location: [id number]
[2025-01-16 16:13] LABS: ALB/GLOB Ratio 1.2 RATIO (0.9-2.4); AST(SGOT) 20 U/L (<=31); Alanine Aminotransfer ALT/SGPT 23 U/L (<=34); Albumin, Serum 3.7 g/dL (3.4-4.8); Alkaline Phosphatase 76 U/L (35-104); Anion Gap 9 (5-15); BUN 14 mg/dL (4-19); BUN/Creat Ratio 21.6 RATIO (10-20); Calcium,Total 9.4 mg/dL (7.6-11.0); Carbon Dioxide 26.4 mmol/L (21.0-32.0); Chloride 107 mmol/L (98-108); Creatinine, Serum 0.65 mg/dL (0.70-1.20); EST Glomerular Filtration Rate 90 (>60); Globulin 3.3 g/dL (2.2-4.2); Glucose 106 mg/dL (70-99); Magnesium 2.1 mg/dL (1.5-2.2); Sodium Level 143 mmol/L (133-145); Total Bilirubin 0.51 mg/dL (0.00-1.30)
== END | disposition home or self-care (01) ==
LOC: LAB 14:28
PROVIDERS: PCP Family Medicine; Referring Provider Nurse Practitioner Family; Visit Provider Nurse Practitioner Family
DX: I48.0 Paroxysmal atrial fibrillation (principal); I47.20 Ventricular tachycardia, unspecified; R06.09 Other forms of dyspnea; I34.0 Nonrheumatic mitral (valve) insufficiency
CPT/HCPCS: 36415; 71046; 80053; 83735; 84443

== ENCOUNTER 2025-01-17 05:14 | Inpatient (IN) | payer MEDICARE, SELFPAY ==
[2025-01-17] VITALS (7 sets, daily range): BP systolic 111–145; BP diastolic 53–98; PULSE 63–89; RESP 16–18; TEMP 36.4–37.1; O2SAT 93–98; BMI 38.7; BMI 36.7
--- NOTE | 2025-01-17 05:42 | EKG12_ITS ---
Test Reason : SOB Blood Pressure : */* mmHG Vent. Rate : 81 BPM Atrial Rate : 81 BPM P-R Int : 160 ms QRS Dur : 84 ms QT Int : 472 ms P-R-T Axes : 37 30 10 degrees QTcB Int : 548 ms Sinus rhythm with frequent Premature ventricular complexes and Premature atrial complexes Nonspecific ST abnormality Prolonged QT Abnormal ECG Confirmed by Pato Simmons ([id number]), newspaper photo editor CHRIS OROZCO ([id number]) on 01/18/2025 12:18:59 PM Referred By: Confirmed By: Pato Simmons
--- NOTE | 2025-01-17 05:42 | EDS_ITS ---
HPI History of Present Illness Chief Complaint: Shortness of Breath Informant: patient, spouse/S.O. and EMS Narrative Narrative: 79-year-old female presenting to the ER for dyspnea. This has been going on for about a week. Presenting at around 5:30 AM because it is worse. She was seen in the cardiology office yesterday for this, she has a history of paroxysmal atrial fibrillation, she was in A-fib yesterday, thought to be in it for a while and causing her to be the rapid ventricular response and dyspneic from that, so they plan on cardioversion tomorrow. She denies having any chest pain. No cough or fevers. She does not feel palpitations. She has been very tired. Maybe some swelling in her legs she thinks. [facility] FOR[facility], LATER [facility] Medical History Dyspnea on exertion Wears glasses High cholesterol TIA (transient ischemic attack) History of IBS History of diverticulitis History of Holter monitoring History of atrial fibrillation Cardiology follow-up encounter Wears partial dentures Arthritis Interstitial cystitis Bladder disease Easy bruising PONV (postoperative nausea and vomiting) Migraine headache Dietary restriction History of hiatal hernia Gastric reflux Non-smoker Shortness of breath on exertion History of edema History of stress test History of echocardiogram Femur fracture, left Esophagitis IBS (irritable bowel syndrome) Hepatic cyst Renal cyst Non-rheumatic mitral regurgitation Nonrheumatic mitral (valve) prolapse Ventricular ectopy Colitis Fibromyalgia Diverticulosis Anxiety and depression Diarrhea Mitral valve prolapse syndrome Home Medications ?Medication ?Instructions ?Recorded ?Last Taken ?Type multivitamin 1 tab PO DAILY [facility] [place] 01/20/23 01/20/23 History ascorbic acid (vitamin C) 500 mg 500 mg PO DAILY 03/18 Unknown History tablet (C-500) cranberry 500 mg capsule 500 mg PO TID 03/18/23 Unkno wn History atorvastatin 40 mg tablet 40 mg PO QHS 05/19/23 Unknow n History lactobacillus combination no.9 4 4,000 mmu cells PO DA PRATIK 05/19/23 Unknown History billion cell capsule (Adult 50 Plus Probiotic) acetaminophen 500 mg tablet 1,000 mg PO DAILY pain Unknown History simethicone 80 mg chewable tablet 80 mg PO BID 4 Unknown History (Gas Relief (simethicone)) ubrogepant 100 mg tablet (Ubrelvy) mg PO .0prn PRN hea dache 01/25/24 Unknown History escitalopram oxalate 5 mg tablet 5 mg PO DAILY 4 Unknown History (Lexapro) nitroglycerin 0.4 mg sublingual 0.4 mg sublingual Q5-1 5M PRN Chest 07/26/24 Unknown Rx tablet Pain #25 tabs apixaban 5 mg tablet (Eliquis) 5 mg PO BID #180 tabs 0 11/08/24 Unknown Rx metoprolol tartrate 50 mg tablet 100 mg (2 x 50 mg) PO BID #180 tabs 01/16/25 Unknown Rx Allergy/AdvReac Type Severity Reaction Status Date / Time ciprofloxacin (From Cipro) Allergy Hives Verified 01/17/25 05:21 ciprofloxacin HCl (From Allergy Hives Verified 01/17/25 05:21 Cipro) atropine (From Lomotil) AdvReac Nausea Verified 01/17/25 05:21 dicyclomine (From Bentyl) AdvReac Other Verified 01/17/25 05:21 diphenoxylate (From Lomotil) AdvReac Nausea Verified 01/17/25 05:21 erythromycin base AdvReac Vomiting Verified 01/17/25 05:21 (Erythromycin Base) hydromorphone HCl (From AdvReac anxiety Verified 01/17/25 05:21 Dilaudid) latex AdvReac Rash Verified 01/17/25 05:21 prochlorperazine edisylate AdvReac anxiety Verified 01/17/25 05:21 (From Compazine) prochlorperazine maleate AdvReac anxiety Verified 01/17/25 05:21 (From Compazine) Family History Father CAD (coronary artery disease) Mother CVA (cerebral vascular accident) Diabetes Sister Heart disease Valvular-mitral Grandmother CAD (coronary artery disease) Grandfather CAD (coronary artery disease) Surgical History History of dilation of urethra History of breast surgery History of esophagogastroduodenoscopy (EGD) History of colonoscopy History of surgery on lower extremity H/O hysterectomy with unilateral oophorectomy History of tonsillectomy History of right knee joint replacement History of left knee replacement History of colon surgery History of cholecystectomy History of appendectomy Social History Smoking Status: Never smoker alcohol intake: never substance use type: does not use caffeine: Yes Type: coffee and tea ROS ROS ED Constitutional Constitutional ED: Reports fatigue; Denies chills or fever(s) Eyes Eyes: Denies change in vision or diplopia ENT ENT ED: Denies rhinorrhea or sore throat Cardiovascular Cardiovascular: Reports leg edema; Denies chest pain, lightheadedness, palpitations or syncope Respiratory/Chest Respiratory/Chest: Reports dyspnea; Denies cough Gastrointestinal Gastrointestinal: Denies abdominal pain, diarrhea, nausea or vomiting Genitourinary Genitourinary ED: Denies dysuria or hematuria Musculoskeletal Musculoskeletal: Denies back pain or neck pain Integumentary Denies abscess or rash Neurologic Neurologic: Denies headache(s), paresthesias or weakness Psychiatric Psychiatric: Denies suicidal thoughts EXAM Physical Exam Const Vital Signs: 01/17/25 05:15 01/17/25 05:48 01/17/25 05:48 Temperature 97.6 F L Temperature Source Oral Pulse Rate 73 Respiratory Rate 18 Respiratory Effort Normal Blood Pressure 142/76 H Blood Pressure Mean 98 Pulse Ox 93 Oxygen Delivery Method Room Air Room Air Positive well nourished and well developed General Appearance ED: well developed and NAD HEENT Reports moist mucous membranes normocephalic and atraumatic Eyes PERRL and EOMs intact bilaterally Neck full ROM, supple and no JVD Resp Resp Narrative: Tachypnea at rest but no distress Auscultation: wheezes expiratory wheezes and lower bilaterally Cardio Rate: Negative for tachycardic Rhythm: abnormal rhythm irregularly irregular GI non-tender and non-distended Auscultation: normoactive bowel sounds Palpation: soft Back/Spine no CVA tenderness General Back: other FROM Extremity normal to inspection General Extremety ED: Negative for edema, pulses abnormal or tenderness General Extremity: Negative for edema or pulses abnormal Neuro oriented x3, CN's II-XII intact bilaterally and no sensory deficits noted Sensorium / Orientation: awake and alert Motor Exam: strength 5/5 throughout Psych Mood & Affect: anxious Skin no rashes or lesions noted and no wounds MDM MDM MDM Narrative Medical decision making narrative: Patient was seen in the office yesterday I reviewed that note. She has been anticoagulated since 2022 so I do not think she needs to be worked up for pulmonary embolus here. She had an echo in August 2024 that showed 60% EF and mild-moderate mitral insufficiency. She had an event monitor back in 2022 that showed multiple runs of nonsustained ventricular tachycardia. She had a negative stress test. Right now she is not tachycardic but is in A-fib, not having chest pain, EKG shows no acute injury, and her vital signs are otherwise normal. She sounds a little wheezy and does not have a history of lung disease/COPD. In case this is pulmonary edema, I am not going to give her breathing treatments and she is clinically stable and I do not want to make her tachycardic. 1 view chest x-ray on my interpretation does appear to be pulmonary edema, and her proBNP is significantly elevated consistent with this. Therefore she was given IV furosemide. Her troponin is within normal limits. Her A-fib is currently rate controlled. Discussed with cardiology Dr. Simmons, who recommends cardioverting the patient now since she has been anticoagulated for almost 2 years, and in addition to the Lasix that may really help. however, upon reexamination, she is in NSR and going in and out of atrial fibrillation frequently, although in NSR most of the time now. Therefore Dr. Simmons recommends admission and holding her metoprolol, and instead giving her Sotolol 80mg BID; we will give her the first dose here, and then he recommends an EKG a couple hrs later to check her QT, followed by repeat EKGs qAM to monitor her QT interval. History & Record Review Additional record(s) reviewed:: Prior outpatient record Lab Data Attestation: I reviewed the patient's lab results. Labs: Laboratory Results - last 24 hr 01/17/25 05:38 WBC 8.7 RBC 3.90 L Hgb 11.7 L Hct 35.3 L MCV 90.5 MCH 30.0 MCHC 33.1 RDW Std Deviation 47.9 H RDW Coeff of Laina 14.8 H Plt Count 233 MPV 10.2 Immature Gran % (Auto) 0.300 Neut % (Auto) 71.3 H Lymph % (Auto) 16.5 L [place] % (Auto) 8.2 Eos % (Auto) 3.0 Baso % (Auto) 0.7 Absolute Neuts (auto) 6.2 Absolute Lymphs (auto) 1.44 Nucleated RBC % 0 Sodium 141 Potassium 3.7 Chloride 107 Carbon Dioxide 23.4 Anion Gap 10 BUN 19 Creatinine 0.63 L Estim Creat Clear Calc 65.07 Est GFR (MDRD) Non-Af 91 BUN/Creatinine Ratio 29.8 H Glucose 125 H Calcium 9.1 Troponin T High Sens 10 NT pro BNP II 2630 H Radiography Diagnostic Testing: Clinical Impression(s) from Imaging Studies Chest X-Ray 01/17/25 06:00 IMPRESSION: Worsening pulmonary vascular congestion. Follow-up until clearing is recommended. Reading Location: [facility] Rhythm Strip Rhythm Strip: A-fib Rate: 85 Ectopy: PVC(s) EKG Initial EKG: Attestation: I personally reviewed and interpreted this EKG as follows: Interpretation: No Acute Injury Pattern, Atrial Fibrillation, Non-Specific ST Changes and - (PVCs) Management Discussion w/another healthcare provider: Hospitalist and Nurse Emergency Room Discharge Plan Dx/Rx/DC Orders Clinical Impression: Acute respiratory insufficiency, Paroxysmal atrial fibrillation, Pulmonary edema Disposition Disposition: Acute Care Hospital [facility]
[2025-01-17 05:55] LABS: Absolute Lymphocyte Count 1.44 X10^3/uL (0.83-4.51); Absolute Neutrophil Count 6.2 X10^3/uL (2.0-7.7); Basophil# 0.06 X10^3/uL; Basophil% 0.7 % (0-1); Eosinophil# 0.26 X10^3/uL; Hematocrit 35.3 % (37-47); Hemoglobin 11.7 g/dL (12.0-15.0); Lymphocyte # 1.44 X10^3/ul (0.83-4.51); Lymphocyte % 16.5 % (19-41); Mean Corp Hgb Conc 33.1 g/dL (32-36); Mean Corpuscular Volume 90.5 fL (81-99); Mean Platelet Vol. 10.2 fl (6.2-12.0); Monocyte# 0.72 X10^3/uL; Monocyte% 8.2 % (0-10); NRBC Flagged by Analyzer 0 % (0-5); Neutrophil # 6.22 X10^3/uL (2.7-7.7); Neutrophil % 71.3 % (47-70); Platelet Count 233 K/mm3 (150-450); RBC Distribution Width CV 14.8 % (11.6-14.6); RBC Distribution Width SD 47.9 fl (35.1-43.9); White Blood Count 8.7 K/mm3 (4.4-11.0)
--- NOTE | 2025-01-17 06:00 | RAD_ITS ---
PROCEDURE: CHEST 1 VIEW (PORTABLE) N/A REASON FOR EXAM: DYSPNEA TECHNIQUE: Frontal view of the chest. COMPARISON: Chest x-ray dated 01/16/2025. FINDINGS: The cardiac silhouette is enlarged. Calcified mitral annular ring is present. There is thickening noted within the bilateral pulmonary interstitium. This appears worse since 01/16/2025, indicating pulmonary vascular congestion. No large effusions are present. RAD/Chest 1 View (Portable) IMPRESSION: Worsening pulmonary vascular congestion. Follow-up until clearing is recommend ed. Reading Location: [facility]
[2025-01-17 06:40] LABS: Anion Gap 10 (5-15); BUN 19 mg/dL (4-19); BUN/Creat Ratio 29.8 RATIO (10-20); Calcium,Total 9.1 mg/dL (7.6-11.0); Carbon Dioxide 23.4 mmol/L (21.0-32.0); Chloride 107 mmol/L (98-108); Creatinine, Serum 0.63 mg/dL (0.70-1.20); EST Glomerular Filtration Rate 91 (>60); Estimated Creatinine Clearance 65.07 ml/min (50-250); Glucose 125 mg/dL (70-99); Potassium 3.7 mmol/L (3.3-5.1); Pro- Brain NATRIURETIC PEPTIDE 2630 pg/mL (<=1800); Sodium Level 141 mmol/L (133-145); Troponin T High Sensitivity 10 ng/L (<=14)
[2025-01-17] MEDS: Furosemide 40 MG/4 ML Vial IV ×3 (06:43→18:22)
--- NOTE | 2025-01-17 07:15 | HP.PCM.HOS_ITS ---
HPI - General General Date of Admission: 01/17/25 Date of Service: 01/17/25 Chief Complaint: Shortness of breath HPI Narrative SAHARA CRUZ, is a 79 F who presented to the emergency department [facility] on 01/17/2025 with a chief complaint of shortness of breath. She reported been ongoing for about a week and she came in around 5:30 in the morning because it had clinically gotten worse. 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 She was noted to be in A-fib yesterday and it was thought that she had been in this for possibly a while with RVR and was distant from that so they plan to cardioversion 4 01/18/2025. Patient thinks she may have had some swelling in her legs but denies any fever or chills. She does state that she has nausea just about every morning now with no vomiting but it resolves after about 4 hours. She does follow with Dr. David for celiac's disease at baseline and her last visit with him was in October. She states she has not notified him as of yet for this. She has appointment to see him on Tuesday. She does have a known history of mitral valve disease and the case was discussed with cardiology prior to admission and they thought maybe her mitral valve disease was getting worse causing worsening atrial fibrillation. They suggest sotalol rather than cardioversion. Her daughter also interjects that over the last few months her memory has been slowly getting worse. Vital signs emergency department show a temperature of 97.6, heart rate 89, respiratory rate was 18, blood pressure was 145/98 and pulse ox was 93% on room air. CBC showed a mild chronic stable anemia but was otherwise unremarkable. Chemistry panel was unremarkable other than hyperglycemia with a glucose level of 125. Troponin has been unremarkable. BNP was elevated at 2630. Her chest x-ray did appear to be wet with bilateral congestion related to volume overload and EKG showed A-fib with RVR. She was dosed with sotalol 80 mg x 1 dose in emergency department at the recommendation of cardiology and was given 1 dose of Lasix. [facility]LY [facility], LAT[facility] Medical History Dyspnea on exertion Wears glasses High cholesterol TIA (transient ischemic attack) History of IBS History of diverticulitis History of Holter monitoring History of atrial fibrillation Cardiology follow-up encounter Wears partial dentures Arthritis Interstitial cystitis Bladder disease Easy bruising PONV (postoperative nausea and vomiting) Migraine headache Dietary restriction History of hiatal hernia Gastric reflux Non-smoker Shortness of breath on exertion History of edema History of stress test History of echocardiogram Femur fracture, left Esophagitis IBS (irritable bowel syndrome) Hepatic cyst Renal cyst Non-rheumatic mitral regurgitation Nonrheumatic mitral (valve) prolapse Ventricular ectopy Colitis Fibromyalgia Diverticulosis Anxiety and depression Diarrhea Mitral valve prolapse syndrome Home Medications ?Medication ?Instructions ?Recorded ?Last Taken ?Type multivitamin 1 tab PO DAILY [facility] [place] 01/20/23 01/20/23 History ascorbic acid (vitamin C) 500 mg 500 mg PO DAILY 03/18 Unknown History tablet (C-500) cranberry 500 mg capsule 500 mg PO TID 03/18/23 Unkno wn History atorvastatin 40 mg tablet 40 mg PO QHS 05/19/23 Unknow n History lactobacillus combination no.9 4 4,000 mmu cells PO DA PRATIK 05/19/23 Unknown History billion cell capsule (Adult 50 Plus Probiotic) acetaminophen 500 mg tablet 1,000 mg PO DAILY pain Unknown History simethicone 80 mg chewable tablet 80 mg PO BID 4 Unknown History (Gas Relief (simethicone)) ubrogepant 100 mg tablet (Ubrelvy) mg PO .0prn PRN hea dache 01/25/24 Unknown History escitalopram oxalate 5 mg tablet 5 mg PO DAILY 4 Unknown History (Lexapro) nitroglycerin 0.4 mg sublingual 0.4 mg sublingual Q5-1 5M PRN Chest 07/26/24 Unknown Rx tablet Pain #25 tabs apixaban 5 mg tablet (Eliquis) 5 mg PO BID #180 tabs 0 11/08/24 Unknown Rx metoprolol tartrate 50 mg tablet 100 mg (2 x 50 mg) PO BID #180 tabs 01/16/25 Unknown Rx Allergy/AdvReac Type Severity Reaction Status Date / Time ciprofloxacin (From Cipro) Allergy Hives Verified 01/17/25 05:21 ciprofloxacin HCl (From Allergy Hives Verified 01/17/25 05:21 Cipro) atropine (From Lomotil) AdvReac Nausea Verified 01/17/25 05:21 dicyclomine (From Bentyl) AdvReac Other Verified 01/17/25 05:21 diphenoxylate (From Lomotil) AdvReac Nausea Verified 01/17/25 05:21 erythromycin base AdvReac Vomiting Verified 01/17/25 05:21 (Erythromycin Base) hydromorphone HCl (From AdvReac anxiety Verified 01/17/25 05:21 Dilaudid) latex AdvReac Rash Verified 01/17/25 05:21 prochlorperazine edisylate AdvReac anxiety Verified 01/17/25 05:21 (From Compazine) prochlorperazine maleate AdvReac anxiety Verified 01/17/25 05:21 (From Compazine) Family History Father CAD (coronary artery disease) Mother CVA (cerebral vascular accident) Diabetes Sister Heart disease Valvular-mitral Grandmother CAD (coronary artery disease) Grandfather CAD (coronary artery disease) Surgical History History of dilation of urethra History of breast surgery History of esophagogastroduodenoscopy (EGD) History of colonoscopy History of surgery on lower extremity H/O hysterectomy with unilateral oophorectomy History of tonsillectomy History of right knee joint replacement History of left knee replacement History of colon surgery History of cholecystectomy History of appendectomy Social History Smoking Status: Never smoker alcohol intake: never substance use type: does not use caffeine: Yes Type: coffee and tea ROS Constitutional Constitutional: Reports fatigue; Denies anorexia, change in weight, chills, fever(s), malaise, night sweats, weakness or other Eyes Eyes: Denies blurry vision, change in eye color, change in vision, discharge from eye(s), double vision, erythema, eye pain, loss of vision or other ENT HEENT: Denies abnormal hearing, dysphagia, ear pain, epistaxis, headache(s), hearing loss, nasal congestion, nasal discharge, post nasal drip, sinus pressure, sore throat or other Cardiovascular Cardiovascular: Reports dyspnea on exertion, edema, palpitations and rapid heart rate; Denies chest pain, claudication, lightheadedness, orthopnea, paroxysmal nocturnal dyspnea, syncope or other Respiratory/Chest Respiratory/Chest: Reports shortness of breath with exertion; Denies cough, dyspnea, excessive phlegm production, hemoptysis, productive cough, shortness of breath at rest, wheezing or other Gastrointestinal Gastrointestinal: Reports diarrhea and nausea; Denies abdominal pain, coffee ground emesis, constipation, dyspepsia, hematemesis, hematochezia, loose stools, melena, vomiting or other Genitourinary Genitourinary: Denies burning urination, difficulty urinating, dysuria, hematuria, nocturia, urinary frequency, urinary hesitancy, urinary incontinence, urinary urgency or other Musculoskeletal Musculoskeletal: Denies arthralgias, back pain, joint pain, joint stiffness, joint swelling, myalgias, neck pain or other Neurologic Neurologic: Denies abnormal gait, abnormal speech, confusion, disequilibrium, dizziness, focal weakness, headache(s), numbness, paresthesias, seizure-like activity, seizures, syncope, tingling, tremor(s) or other Psychiatric Psychiatric: Denies anxiety, depression, homicidal ideation, suicidal ideation or other Endocrine Endocrinology: Denies change in body appearance, cold intolerance, excessive sweating, heat intolerance, polydipsia, polyuria or other Hematologic/Lymphatic Hematologic/Lymphatic: Denies anemia, easy bleeding, easy bruising, lymphadenopathy or other Allergic/Immunologic Allergic/Immunologic: Denies rhinitis, hives, eczemia, asthma or other Vital Signs Vital Signs Vital Signs: 01/17/25 05:15 01/17/25 05:48 01/17/25 05:48 Temperature 97.6 F L Temperature Source Oral Pulse Rate 73 Respiratory Rate 18 Respiratory Effort Normal Blood Pressure 142/76 H Blood Pressure Mean 98 Pulse Ox 93 Oxygen Delivery Method Room Air Room Air Weight Weight: 99.2 kg Body Mass Index (BMI) 38.7 Physical Exam Const alert, oriented x3, no apparent distress and well nourished; Negative for average body habitus Constitutional Narrative: Morbidly obese, older, white female, lying in bed, appears comfortable, nontoxic, family at bedside General Appearance: cooperative HEENT normocephalic, head/scalp atraumatic and moist oral mucous membranes HEENT Narrative: Mallampati 3-4, no thrush Eyes conjunctivae normal Eyes Narrative: No scleral icterus Neck supple Neck Narrative: Neck is short and thick, trachea midline Resp normal respiratory effort, no retractions, no use of accessory muscles and No clear to auscultation bilaterally Resp Narrative: Crackles noted at the bases bilaterally Auscultation: crackles; Negative for rhonchi or wheezes Cardio S1 normal heart sound, S2 normal heart sound, no rub, no gallops and no clicks; Negative for regular rate, regular rhythm or no murmurs Cardio Narrative: Mild tachycardia with irregularly irregular rhythm, 1 out of 6 to 2 out of 6 systolic murmur loudest at left lower sternal border GI normal to inspection, nondistended, normoactive bowel sounds, soft to palpation and non-tender GI Narrative: Protuberant abdomen Extremity Extremity Narrative: Trace bilateral lower extremity edema without cyanosis or clubbing Neuro oriented x3, moves all extremities and no focal motor deficits Neuro Narrative: Intermittently forgetful Speech: speech normal Psych affect normal Psych Narrative: Pleasant, interacts appropriately Results Lab / Micro Data 01/17/25 05:38 01/17/25 05:38 Labs: Laboratory Results - last 24 hr 01/17/25 05:38: WBC 8.7, RBC 3.90 L, Hgb 11.7 L, Hct 35.3 L, MCV 90.5, MCH 30.0, MCHC 33.1, RDW Std Deviation 47.9 H, RDW Coeff of Laina 14.8 H, Plt Count 233, MPV 10.2, Immature Gran % (Auto) 0.300, Neut % (Auto) 71.3 H, Lymph % (Auto) 16.5 L, [place] % (Auto) 8.2, Eos % (Auto) 3.0, Baso % (Auto) 0.7, Absolute Neuts (auto) 6.2, Absolute Lymphs (auto) 1.44, Nucleated RBC % 0, Sodium 141, Potassium 3.7, Chloride 107, Carbon Dioxide 23.4, Anion Gap 10, BUN 19, Creatinine 0.63 L, Estim Creat Clear Calc 65.07, Est GFR (MDRD) Non-Af 91, BUN/Creatinine Ratio 29.8 H, Glucose 125 H, Calcium 9.1, Troponin T High Sens 10, NT pro BNP II 2630 H Rhythm Strip Rhythm Strip: A-fib Rate: 85 Ectopy: PVC(s) Imaging Radiology Impression Chest X-Ray 01/17/25 06:00 IMPRESSION: Worsening pulmonary vascular congestion. Follow-up until clearing is recommended. Reading Location: [facility] Assessment & Plan Assessment/Plan (1) Pulmonary edema: (2) Dyspnea on exertion: (3) Paroxysmal atrial fibrillation: (4) Nausea: (5) Memory loss: PLAN: Plan Paroxysmal atrial fibrillation - Patient in atrial fibrillation on presentation - Had increase in metoprolol dose but became progressively worse with shortness of breath and still in atrial fibrillation with acute heart failure related to RVR -Has not had any Eliquis doses missed -Has history of MVP--> check echocardiogram to ensure that she does not have worsening mitral valve regurgitation as etiology for her atrial fibrillation - Last echocardiogram in 2022 showed normal LV function at 60% with moderate MR -Start sotalol 80 mg p.o. twice daily - Repeat EKG in a.m. - Hold metoprolol - Cardiology consult Shortness of breath with exertion secondary to acute HFpEF - Last echo with normal EF however suspect her RVR has kicked her into some heart failure - proBNP is elevated for her age - Lasix 40 mg IV twice daily - Will monitor renal function electrolytes - Will give 1 dose of potassium now as she is going to be on diuretics and utilization of sotalol with hypokalemia can precipitate lethal arrhythmias Nausea - Patient with morning nausea has been quite debilitating - Check TSH - Check gastric emptying study - Patient does follow with Dr. David - If recurs tomorrow will start antiemetic - Patient has not been taking anything prescribed at home and Dr. David is not aware of her a.m. nausea Memory loss - Daughter is concerned because her memory has been extremely poor in the last several months - Check TSH - Check B12 level - Check folic acid - If persistent will refer to neurology as an outpatient for further workup Celiac's disease - Continue follow-up with Dr. David after discharge - Patient with chronic diarrhea and related to this History of interstitial cystitis - No current complaints Hyperlipidemia - Continue atorvastatin Anxiety/depression - Continue home escitalopram Obesity - BMI 36.7 -Recommend weight loss - Patient should likely have outpatient polysomnography especially with atrial fibrillation diagnosis - Will recommend a discharge DVT prophylaxis - Continue home Eliquis CODE STATUS - Full code as discussed on admission Charges/Coding Visit Charges Inpatient E&M: 74210 Init Hosp L2
--- NOTE | 2025-01-17 07:43 | PCM.CONS.C ---
Assessment & Plan Assessment/Plan (1) Paroxysmal atrial fibrillation: PLAN: Patient was documented to be in atrial fibrillation on 01/16/2025 in the [facility] office at a heart rate of 145 bpm. Metoprolol was increased to 100 mg twice daily but the patient became progressively more short of breath and presented to the emergency department early on the morning of 01/17/2025. The patient's chest x-ray in the emergency department compared to the chest x-ray yesterday shows increasing pulmonary congestion. The patient spontaneously reverted into sinus rhythm and then flipped in and out of atrial fibrillation while being monitored in the emergency department. Sinus rate was controlled in the 70 bpm there were PVCs noted the patient has a history of recurrent PVCs and nonsustained VT remotely. The patient also complains of chronic diarrhea and nausea for the last several weeks. She does have a history of celiac disease and is followed by Dr. David. Patient also has a history of mitral valve prolapse with moderate mitral regurgitation. She is obese and difficult to auscultate her cardiovascular exam but it does appear she has a faint 1/6 systolic murmur and a audible click. Last echocardiogram was in 2022 which showed normal LV function EF of 60% and moderate mitral regurgitation with bileaflet prolapse. Given the patient's paroxysms of atrial fibrillation, her progressive dyspnea on exertion, her pulmonary congestion, and signs and symptoms of decreased cardiac output syndrome, I would recommend that we place her on sotalol 80 mg twice daily, replace any potassium as her potassium is 3.7 and she is receiving diuretics, check an ECG for QT interval 2 to 3 hours after the first sotalol dose and then every morning. Will hold the metoprolol for the time being. Will repeat an echo to reevaluate the LV function and valvular heart disease. (2) Dyspnea on exertion: PLAN: This is probably multifactorial related to her potential for worsening mitral regurgitation and/or LV dysfunction, her paroxysms of atrial fibrillation, and her body habitus. Will continue with gentle diuresis her renal function is normal monitor her potassium and I's and O's. (3) Nonrheumatic mitral (valve) prolapse: PLAN: An echocardiogram be done to reevaluate the patient's known moderate mitral valve regurgitation related to her bileaflet prolapse. PLAN: Plan 1. Will add sotalol 80 mg twice daily. 2. Check QT interval with ECG in 2-3 hours. 3. ECG every morning while on sotalol in the hospital. 4. 2D echocardiogram to evaluate structural heart disease and LV function. 5. Continue with diuresis monitoring electrolytes and renal function. 6. Defers further evaluation of the nausea and GI issues to the primary service. HPI Consult Data Date of Consult: 01/17/25 HPI Narrative Reason for Consultation: Paroxysmal atrial fibrillation with rapid ventricular response HPI Narrative: SAHARA CRUZ, is a 79 F who presents with a 2-week history of progressive shortness of breath and dyspnea on exertion. This has been worsening over the last several days. She was evaluated in the [facility] office yesterday and was found to be in atrial fibrillation with a rapid ventricular spots of 145 bpm. The patient's metoprolol was increased to 100 mg twice daily and she was set up for elective direct-current cardioversion on January 18, 2025, tomorrow. The patient presented to the emergency room early this morning complaining of increasing shortness of breath chest x-ray was consistent with pulmonary congestion heart rate was in the 120 bpm range in atrial fibrillation. The patient is been on long-term oral oral anticoagulation and she has not missed any dosing. The plan was to cardiovert in the emergency department but she spontaneously reverted into sinus rhythm. Heart rate was in the 70 bpm in sinus rhythm but then she had a recurrence of her atrial fibrillation and has been flipping in and out of atrial fib. The patient also has multiple somatic complaints she has a history of chronic diarrhea she apparently was told that she had white blood cells in her stool and was rereferred to Dr. David due to her nausea and diarrhea. Patient denies any chest pain she does have a history of mitral valve prolapse with moderate mitral regurgitation and normal LV function on an echocardiogram done February 2023. Patient also had a negative stress test February 2023 which showed sinus rhythm at 66 bpm and was negative for any ischemia. The patient denies any syncope or near syncope. She does have continued fatigue and weakness. The patient is being admitted for diuresis, sotalol loading, and further evaluation of her valvular heart disease. ECG in the emergency department showed normal sinus rhythm with frequent PVCs no significant ischemic changes documented. [facility] Medical History Dyspnea on exertion Wears glasses High cholesterol TIA (transient ischemic attack) History of IBS History of diverticulitis History of Holter monitoring History of atrial fibrillation Cardiology follow-up encounter Wears partial dentures Arthritis Interstitial cystitis Bladder disease Easy bruising PONV (postoperative nausea and vomiting) Migraine headache Dietary restriction History of hiatal hernia Gastric reflux Non-smoker Shortness of breath on exertion History of edema History of stress test History of echocardiogram Femur fracture, left Esophagitis IBS (irritable bowel syndrome) Hepatic cyst Renal cyst Non-rheumatic mitral regurgitation Nonrheumatic mitral (valve) prolapse Ventricular ectopy Colitis Fibromyalgia Diverticulosis Anxiety and depression Diarrhea Mitral valve prolapse syndrome Home Medications ?Medication ?Instructions ?Recorded ?Last Taken ?Type multivitamin 1 tab PO DAILY health maintenance 01/20/23 01/20/23 History ascorbic acid (vitamin C) 500 mg 500 mg PO DAILY 03/18/23 Unknown History tablet (C-500) cranberry 500 mg capsule 500 mg PO TID 03/18/23 Unknown History atorvastatin 40 mg tablet 40 mg PO QHS 05/19/23 Unknown History lactobacillus combination no.9 4 4,000 mmu cells PO DAILY 05/19/23 Unknown History billion cell capsule (Adult 50 Plus Probiotic) acetaminophen 500 mg tablet 1,000 mg PO DAILY pain 01/25/24 Unknown History simethicone 80 mg chewable tablet 80 mg PO BID 01/25/24 Unknown History (Gas Relief (simethicone)) ubrogepant 100 mg tablet (Ubrelvy) mg PO .0prn PRN headache 01/25/24 Unknown History escitalopram oxalate 5 mg tablet 5 mg PO DAILY 05/10/24 Unknown History (Lexapro) nitroglycerin 0.4 mg sublingual 0.4 mg sublingual Q5-15M PRN Chest 07/26/24 Unknown Rx tablet Pain #25 tabs apixaban 5 mg tablet (Eliquis) 5 mg PO BID #180 tabs 11/08/24 Unknown Rx metoprolol tartrate 50 mg tablet 100 mg (2 x 50 mg) PO BID #180 tabs 01/16/25 Unknown Rx Allergy/AdvReac Type Severity Reaction Status Date / Time ciprofloxacin (From Cipro) Allergy Hives Verified 01/17/25 05:21 ciprofloxacin HCl (From Allergy Hives Verified 01/17/25 05:21 Cipro) atropine (From Lomotil) AdvReac Nausea Verified 01/17/25 05:21 dicyclomine (From Bentyl) AdvReac Other Verified 01/17/25 05:21 diphenoxylate (From Lomotil) AdvReac Nausea Verified 01/17/25 05:21 erythromycin base AdvReac Vomiting Verified 01/17/25 05:21 (Erythromycin Base) hydromorphone HCl (From AdvReac anxiety Verified 01/17/25 05:21 Dilaudid) latex AdvReac Rash Verified 01/17/25 05:21 prochlorperazine edisylate AdvReac anxiety Verified 01/17/25 05:21 (From Compazine) prochlorperazine maleate AdvReac anxiety Verified 01/17/25 05:21 (From Compazine) Family History Father CAD (coronary artery disease) Mother CVA (cerebral vascular accident) Diabetes Sister Heart disease Valvular-mitral Grandmother CAD (coronary artery disease) Grandfather CAD (coronary artery disease) Surgical History History of dilation of urethra History of breast surgery History of esophagogastroduodenoscopy (EGD) History of colonoscopy History of surgery on lower extremity H/O hysterectomy with unilateral oophorectomy History of tonsillectomy History of right knee joint replacement History of left knee replacement History of colon surgery History of cholecystectomy History of appendectomy Social History Smoking Status: Never smoker alcohol intake: never substance use type: does not use caffeine: Yes Type: coffee and tea ROS ROS Narrative Patient resting on her side flat on the gurney in the emergency department. She appears in moderate distress due to nausea. Constitutional Constitutional: Reports as per HPI Eyes Eyes: Reports systems reviewed and no addt'l complaints, except as documented ENT HEENT: Reports systems reviewed and no addt'l complaints, except as documented Cardiovascular Cardiovascular: Reports as per HPI Respiratory/Chest Respiratory/Chest: Reports as per HPI Gastrointestinal Gastrointestinal: Reports as per HPI Genitourinary Genitourinary: Reports systems reviewed and no addt'l complaints, except as documented Musculoskeletal Musculoskeletal: Reports systems reviewed and no addt'l complaints, except as documented Integumentary Integumentary: Reports systems reviewed and no addt'l complaints, except as documented Neurologic Neurologic: Reports systems reviewed and no addt'l complaints, except as documented Psychiatric Psychiatric: Reports systems reviewed and no addt'l complaints, except as documented Endocrine Endocrinology: Reports systems reviewed and no addt'l complaints, except as documented Hematologic/Lymphatic Hematologic/Lymphatic: Reports systems reviewed and no addt'l complaints, except as documented Allergic/Immunologic Allergic/Immunologic: Reports systems reviewed and no addt'l complaints, except as documented Physical Exam Narrative Sickly appearing obese white female resting on her right side and flat on the gurney. O2 saturation 95% on nasal cannula. Const alert and oriented x3 HEENT normocephalic Eyes EOMs intact bilaterally Neck Neck Narrative: Thick neck unable to assess JVD. Chest inspection of chest normal Resp clear to auscultation bilaterally Resp Narrative: Mildly tachypneic but no definitive crackles or rales auscultated. Auscultation: Negative for rales Cardio Rate: regular rate Rhythm: regular rhythm Heart Sounds: S1 normal, S2 normal, click and murmur systolic I/ soft mid left sternal border; Negative for gallop GI GI Narrative: Obese with positive bowel sounds complains of mild tenderness. Extremity no pedal edema Extremity Narrative: Enlarged lower extremities without any definitive significant edema. Neuro Neuro Narrative: Lethargic but easily arousable and oriented x 3 Psych mental status grossly normal Risk Stratification Risk Stratification Applicable: No Charges/Coding Visit Charges Inpatient E&M: 56752 Init Hosp L3 Objective Data Vital Signs: Vital Signs Temp Pulse Resp BP Pulse Ox O2 Del Method 97.6 F L 89 18 145/98 H 93 Room Air 01/17/25 05:15 01/17/25 07:15 01/17/25 07:15 01/17/25 07:15 01/17/25 07:15 01/17/25 05:48 Oxygen Delivery Method Room Air Weight: 218 lb 11.177 oz Body Mass Index (BMI) 38.7 Lab / Micro Data Attestation: I reviewed the patient's lab results. 01/17/25 05:38 01/17/25 05:38 Labs: Laboratory Results - last 24 hr 01/17/25 05:38: WBC 8.7, RBC 3.90 L, Hgb 11.7 L, Hct 35.3 L, MCV 90.5, MCH 30.0, MCHC 33.1, RDW Std Deviation 47.9 H, RDW Coeff of Laina 14.8 H, Plt Count 233, MPV 10.2, Immature Gran % (Auto) 0.300, Neut % (Auto) 71.3 H, Lymph % (Auto) 16.5 L, [place] % (Auto) 8.2, Eos % (Auto) 3.0, Baso % (Auto) 0.7, Absolute Neuts (auto) 6.2, Absolute Lymphs (auto) 1.44, Nucleated RBC % 0, Sodium 141, Potassium 3.7, Chloride 107, Carbon Dioxide 23.4, Anion Gap 10, BUN 19, Creatinine 0.63 L, Estim Creat Clear Calc 65.07, Est GFR (MDRD) Non-Af 91, BUN/Creatinine Ratio 29.8 H, Glucose 125 H, Calcium 9.1, Troponin T High Sens 10, NT pro BNP II 2630 H Rhythm Strip Rhythm Strip: Sinus Rhythm Rate: 70 Ectopy: PVC(s) Cardiology Labs/Tests 01/17/25 05:38: WBC 8.7, RBC 3.90 L, Hgb 11.7 L, Hct 35.3 L, MCV 90.5, MCH 30.0, MCHC 33.1, Plt Count 233, MPV 10.2, Immature Gran % (Auto) 0.300, Neut % (Auto) 71.3 H, Lymph % (Auto) 16.5 L, [place] % (Auto) 8.2, Eos % (Auto) 3.0, Baso % (Auto) 0.7, Absolute Neuts (auto) 6.2, Nucleated RBC % 0, Sodium 141, Potassium 3.7, Chloride 107, Carbon Dioxide 23.4, Anion Gap 10, BUN 19, Creatinine 0.63 L, Est GFR (MDRD) Non-Af 91, BUN/Creatinine Ratio 29.8 H, Glucose 125 H, Calcium 9.1 Rhythm: EKG: ECHO: Stress Test: Cardiac Cath: PCI: CT Surgery: Holter monitor: EPS: PPM: CXR: Chest CT Scan: Radiography Diagnostic Testing: Radiology Impression Chest X-Ray 01/17/25 06:00 IMPRESSION: Worsening pulmonary vascular congestion. Follow-up until clearing is recommended. Reading Location: [facility]
[2025-01-17] MEDS: Sotalol Hydrochloride 80 MG Tablet PO ×3 (07:49→20:34)
[2025-01-17 08:09] LABS: Troponin T High Sens 2 HR 11 ng/L (<=14)
--- NOTE | 2025-01-17 10:08 | ECHOD_ITS ---
Reason For Study Reason For Study: VALVE EVAL Procedure This was a 2D Doppler, Color Flow transthoracic echocardiogram. Exam performed in department. Left Ventricle Normal LV size. Mild concentric left ventricular hypertrophy. The LV systolic function is normal. EF is 60 %. Diastolic dysfunction. Right Ventricle Normal right ventricle. Atria The left atrium is severely enlarged. The right atrium is moderately enlarged. Mitral Valve Severe mitral annular calcification. Moderate to severe posteriorly directed mitral valve regurgitation. Tricuspid Valve Mild tricuspid valve insufficiency. Right ventricular systolic pressure estimated to be 50 mmHg. Aortic Valve Trivial aortic valve insufficiency. Great Vessels Normal sized aortic root. Pericardium/Pleural No pericardial effusion. MMode/2D Measurements & Calculations LVIDd: 5.4 cm IVSd: 1.2 cm LVOT diam: 2.0 cm LVIDs: 5.1 cm LVPWd: 1.2 cm LVOT area: 3.3 cm2 RVDd: 3.8 cm FS: 5.3 % Ao root diam: 3.1 cm LAV(MOD-bp): 108.4 ml LVAd ap4: 28.7 cm2 LAV(MOD-bp) Indexed: 54.0 ml/m2 LVLd ap4: 7.9 cm LAV(MOD-sp2): 100.5 ml EDV(MOD-sp4): 87.9 ml LAV(MOD-sp4): 105.9 ml EDV(sp4-el): 89.3 ml LVAs ap4: 18.7 cm2 LVLs ap4: 6.6 cm ESV(MOD-sp4): 45.4 ml ESV(sp4-el): 45.3 ml EF(MOD-sp4): 48.3 % EF(sp4-el): 49.3 % SV(MOD-sp4): 42.5 ml SV(sp4-el): 44.0 ml LA A4 area: 31.7 cm2 SI(MOD-sp4): 21.2 ml/m2 LA dimension(2D): 5.4 cm RA A4 area: 24.0 cm2 Doppler Measurements & Calculations MV E max kayla: 116.8 cm/sec Ao V2 max: 107.6 cm/sec LV V1 max: 85.5 cm/sec Ao max P.6 mmHg LV V1 max P.9 mmHg Ao V2 mean: 72.7 cm/sec LV V1 mean P.5 mmHg Ao mean P.4 mmHg LV V1 mean: 58.2 cm/sec Ao V2 VTI: 28.9 cm LV V1 VTI: 22.3 cm AV (velocity ratio): 0.77 YANET(I,D): 2.5 cm2 YANET(V,D): 2.6 cm2 SV(LVOT): 73.1 ml PA V2 max: 93.1 cm/sec TR max kayla: 294.7 cm/sec PA V2 mean: 72.3 cm/sec TR max P.7 mmHg ECHO/Echo Complete Interpretation Summary Mild concentric left ventricular hypertrophy. The LV systolic function is normal. EF is 60 %. Diastolic dysfunction. The left atrium is severely enlarged. The right atrium is moderately enlarged. Severe mitral annular calcification. Moderate to severe posteriorly directed mi tral valve regurgitation. Mild tricuspid valve insufficiency. Right ventricular systolic pressure estimated to be 50 mmHg. Ordering Physician: Veronica Louise Referring Physician: ROSENDO BROWN Performed By: Zarina Caban RCS
[2025-01-17] MEDS: APIXABAN 5 MG TABLET PO ×2 (11:16→20:34)
[2025-01-17] MEDS: Lactobacillis Acidophilus 1 CAP PO (11:16)
[2025-01-17] MEDS: Potassium Chloride Oral Tablet 20 MEQ PO ×2 (11:16→16:22)
[2025-01-17] MEDS: Escitalopram Oxalate 10 MG Tablet 5 MG PO (11:16)
[2025-01-17] MEDS: Ascorbic Acid 500 MG Tablet PO (11:17)
[2025-01-17] MEDS: SimETHICONE 80 MG Chewable Tablet PO ×2 (11:17→20:35)
[2025-01-17] MEDS: Multivitamins,Therapeutic Tablet 1 TABLET PO (11:17)
[2025-01-17] MEDS: 0.9% Saline Lock 10 ML Syringe IV ×3 (13:20→18:22)
[2025-01-17] MEDS: Ondansetron 4 MG/2 ML Vial IV (13:20)
[2025-01-17 17:47] LABS: Troponin T High Sensitivity 13 ng/L (<=14)
[2025-01-17 19:45] LABS: Troponin T High Sens 2 HR 12 ng/L (<=14)
[2025-01-17 20:20] LABS: Vitamin B12 842 pg/mL (180-914)
[2025-01-17] MEDS: Atorvastatin Calcium 40 MG Tablet PO (20:34)
[2025-01-17 22:07] LABS: Troponin T High Sens 4 HR 13 ng/L (<=14)
[2025-01-18 02:30] VITALS: BP 109/56; PULSE 62; RESP 16; TEMP 36.3; O2SAT 94
[2025-01-18 04:49] LABS: Absolute Neutrophil Count 5.7 X10^3/uL (2.0-7.7); Basophil# 0.05 X10^3/uL; Basophil% 0.6 % (0-1); Eosinophil# 0.21 X10^3/uL; Eosinophils% 2.5 % (0-5); Hematocrit 36.2 % (37-47); Hemoglobin 11.9 g/dL (12.0-15.0); Lymphocyte % 17.9 % (19-41); Mean Corp Hgb Conc 32.9 g/dL (32-36); Mean Corpuscular Hgb 30.4 pg (27.0-32.0); Mean Corpuscular Volume 92.3 fL (81-99); Mean Platelet Vol. 10.3 fl (6.2-12.0); Monocyte% 10.7 % (0-10); NRBC Flagged by Analyzer 0 % (0-5); Neutrophil # 5.71 X10^3/uL (2.7-7.7); Neutrophil % 67.9 % (47-70); Platelet Count 245 K/mm3 (150-450); RBC Distribution Width CV 14.6 % (11.6-14.6); RBC Distribution Width SD 49.1 fl (35.1-43.9); Red Blood Count 3.92 M/mm3 (4.2-5.4); White Blood Count 8.4 K/mm3 (4.4-11.0)
[2025-01-18 05:26] VITALS: BMI 36.3
[2025-01-18 05:26] LABS: ALB/GLOB Ratio 1.2 RATIO (0.9-2.4); AST(SGOT) 23 U/L (<=31); Alanine Aminotransfer ALT/SGPT 19 U/L (<=34); Albumin, Serum 3.5 g/dL (3.4-4.8); Alkaline Phosphatase 71 U/L (35-104); Anion Gap 10 (5-15); BUN 16 mg/dL (4-19); BUN/Creat Ratio 24.4 RATIO (10-20); Calcium,Total 9.4 mg/dL (7.6-11.0); Carbon Dioxide 28.6 mmol/L (21.0-32.0); Chloride 105 mmol/L (98-108); Creatinine, Serum 0.67 mg/dL (0.70-1.20); EST Glomerular Filtration Rate 89 (>60); Estimated Creatinine Clearance 63.17 ml/min (50-250); Glucose 108 mg/dL (70-99); Magnesium 2.1 mg/dL (1.5-2.2); Potassium 3.5 mmol/L (3.3-5.1); Protein, Total 6.5 g/dL (5.9-8.4); Sodium Level 143 mmol/L (133-145); Total Bilirubin 0.83 mg/dL (0.00-1.30)
--- NOTE | 2025-01-18 07:06 | EKG12_ITS ---
Test Reason : ARRYTH Blood Pressure : */* mmHG Vent. Rate : 67 BPM Atrial Rate : 67 BPM P-R Int : 144 ms QRS Dur : 80 ms QT Int : 478 ms P-R-T Axes : 31 4 13 degrees QTcB Int : 505 ms Sinus rhythm with occasional Premature atrial complexes Left ventricular hypertrophy with repolarization abnormality ( R in aVL ) Prolonged QT Abnormal ECG When compared with ECG of 18-Jan-2025 07:22, Premature ventricular complexes are now Present Confirmed by Pato Simmons ([id number]), television news video editor STACEY TERRAZAS ([id number]) on 01/21/2025 11:55:57 AM Referred By: Confirmed By: Pato Simmons
[2025-01-18 07:30] VITALS: O2SAT 96
--- NOTE | 2025-01-18 08:36 | CPS ---
SMI and Pep held. Pt C/O headache. Nurse aware of headache and pt's request for pain med
--- NOTE | 2025-01-18 09:00 | NM_ITS ---
PROCEDURE: GASTRIC EMPTYING STUDY 01/18/2025 REASON FOR EXAM: NAUSEA COMPARISON: None. TECHNIQUE: The patient ingested a semi solid meal of oatmeal. There was no vomiting postprandially. Anterior and posterior planar images of the upper abdomen were obtained for a total of 60 minutes. Regions of interest were drawn, and a geometric mean was used to calculate a [id number]. Medications taken in the past 24 hours that may affect gastric emptying: None RADIOPHARMACEUTICAL: Oral administration, with oatmeal, 1.2 mCi technetium 99 M sulfur colloid. FINDINGS: During the time of imaging, gastroesophageal reflux was not visualized. Linear fit gastric emptying half-time of 27.2 minutes. Gastric emptying at 11.5 minutes of 28%, at 29.5 minutes of 70%, and at 59.5 minutes of 91%. NM/Gastric Emptying Study IMPRESSION: Normal semi solid phase gastric emptying. Reading Location: [place] [id number]
[2025-01-18 10:54] VITALS: BP 117/47; PULSE 60; RESP 16; TEMP 36.1; O2SAT 94
[2025-01-18] MEDS: Lactobacillis Acidophilus 1 CAP PO (10:55)
[2025-01-18] MEDS: SimETHICONE 80 MG Chewable Tablet PO ×2 (10:55→22:00)
[2025-01-18] MEDS: Ascorbic Acid 500 MG Tablet PO (10:55)
[2025-01-18] MEDS: Multivitamins,Therapeutic Tablet 1 TABLET PO (10:55)
[2025-01-18] MEDS: APIXABAN 5 MG TABLET PO ×2 (10:55→21:59)
[2025-01-18] MEDS: Potassium Chloride Oral Tablet 20 MEQ PO ×2 (10:55→16:51)
[2025-01-18] MEDS: Escitalopram Oxalate 10 MG Tablet 5 MG PO (10:55)
[2025-01-18] MEDS: 0.9% Saline Lock 10 ML Syringe IV (10:56)
[2025-01-18] MEDS: Furosemide 40 MG/4 ML Vial IV (10:56)
[2025-01-18] MEDS: Lisinopril 5 MG Tablet PO ×2 (11:00→22:00)
[2025-01-18] MEDS: Potassium Chloride Oral Tablet 20 MEQ 40 MEQ PO (11:07)
--- NOTE | 2025-01-18 12:19 | CASEMGMT ---
GASTON CARL Assessment: Face to Face with pt for initial transition planning/care coordination assessment. GASTON CARL introduced self and role at [facility], pt voices understanding and consents to assessment. Pt is A&O x4 and answers all questions appropriately at this time. Care providers, pharmacy, and demographics verified/updated. Strata: 2 Admitting Dx: AFIB with RVR PCP: Rosa Specialists: BAIRON; Friend, Gastroeneterologist Preferred Pharmacy: [facility] Insurance: dateIITians [facility] Prescription Benefit: yes LNOK: , Unruly Living Arrangements: Pt lives with in a 1 level home with no steps to enter. ADLs: Pt states I at baseline with ADLs and IADLs. Transportation: Pt drives self and denies concerns with transportation. DME: Walker, cane, shower bench, Pt states she is supposed to wear a CPAP at night but doesn't. HHC/SNF: Previously at SNF, but does not recall where. Pt states no concerns with going home at time of dc. Pt states no further concerns/needs. CM to follow. Advised pt to ask CM if any further question/concerns/needs arise, voices understanding. Pt Goal: Home Plan: Home with family support. Follow for safe DC. Rashi FELDMAN CM
--- NOTE | 2025-01-18 12:35 | PCM.PN.CARD ---
Subjective Subjective Denies any complaints today. Objective Data Vital Signs: Vital Signs Temp Pulse Resp BP Pulse Ox O2 Del Method 97.0 F L 60 16 117/47 L 94 Room Air 01/18/25 10:54 01/18/25 10:54 01/18/25 10:54 01/18/25 10:54 01/18/25 10:54 01/18/25 10:54 Oxygen Delivery Method Room Air Weight: 205 lb 0.478 oz Body Mass Index (BMI) 36.3 Lab / Micro Data 01/18/25 04:17 01/18/25 04:17 Labs: Laboratory Results - last 24 hr 01/17/25 17:00: Troponin T High Sens 13 D 01/17/25 19:00: Troponin T Hi Sens 2 Hr 12 01/17/25 19:15: Vitamin B12 842 01/17/25 20:36: Troponin T Hi Sens 4Hr 13 01/18/25 04:17: WBC 8.4, RBC 3.92 L, Hgb 11.9 L, Hct 36.2 L, MCV 92.3, MCH 30.4, MCHC 32.9, RDW Std Deviation 49.1 H, RDW Coeff of Laina 14.6, Plt Count 245, MPV 10.3, Immature Gran % (Auto) 0.400, Neut % (Auto) 67.9, Lymph % (Auto) 17.9 L, [place] % (Auto) 10.7 H, Eos % (Auto) 2.5, Baso % (Auto) 0.6, Absolute Neuts (auto) 5.7, Absolute Lymphs (auto) 1.50, Nucleated RBC % 0, Sodium 143, Potassium 3.5, Chloride 105, Carbon Dioxide 28.6, Anion Gap 10, BUN 16, Creatinine 0.67 L, Estim Creat Clear Calc 63.17, Est GFR (MDRD) Non-Af 89, BUN/Creatinine Ratio 24.4 H, Glucose 108 H, Calcium 9.4, Phosphorus 4.0, Magnesium 2.1, Total Bilirubin 0.83, AST 23, ALT 19, Alkaline Phosphatase 71, Total Protein 6.5, Albumin 3.5, Globulin 3.0, Albumin/Globulin Ratio 1.2, TSH 3.120 Rhythm Strip Rhythm Strip: A-fib Rate: 85 Ectopy: PVC(s) Cardiology Labs/Tests 01/18/25 04:17: WBC 8.4, RBC 3.92 L, Hgb 11.9 L, Hct 36.2 L, MCV 92.3, MCH 30.4, MCHC 32.9, Plt Count 245, MPV 10.3, Immature Gran % (Auto) 0.400, Neut % (Auto) 67.9, Lymph % (Auto) 17.9 L, [place] % (Auto) 10.7 H, Eos % (Auto) 2.5, Baso % (Auto) 0.6, Absolute Neuts (auto) 5.7, Nucleated RBC % 0, Sodium 143, Potassium 3.5, Chloride 105, Carbon Dioxide 28.6, Anion Gap 10, BUN 16, Creatinine 0.67 L, Est GFR (MDRD) Non-Af 89, BUN/Creatinine Ratio 24.4 H, Glucose 108 H, Calcium 9.4, Phosphorus 4.0, Magnesium 2.1, Total Bilirubin 0.83 Rhythm: EKG: ECHO: Stress Test: Cardiac Cath: PCI: CT Surgery: Holter monitor: EPS: PPM: CXR: Chest CT Scan: Radiography Diagnostic Testing: Radiology Impression Gastric Emptying Nuclear Medicine 01/18/25 09:00 IMPRESSION: Normal semi solid phase gastric emptying. Reading Location: [place] [id number] Physical Exam Narrative Comfortable. No apparent distress. Heart sounds 1 and 2 normal. Chest clear to auscultation bilaterally. No ankle edema. Assessment & Plan Assessment/Plan (1) Paroxysmal atrial fibrillation: PLAN: Presently normal sinus rhythm. Started on sotalol yesterday. QTc prolonged this morning. DC sotalol. Repeat ECG tomorrow morning. If QT has normalized, then will start on amiodarone. (2) Mitral regurgitation: PLAN: Continue diuretics. Start on ACEI for afterload reduction. Reevaluate as outpatient and consider referral to CT surgery for valve repair. (3) Chronic heart failure with preserved ejection fraction (HFpEF): PLAN: Diuretics. Change furosemide to p.o. Start on SGLT2 inhibitor.
[2025-01-18] MEDS: Empagliflozin 10 MG Tablet PO (13:34)
--- NOTE | 2025-01-18 13:39 | PN.HOSP_ITS ---
Reason for Visit Reason for Visit: Shortness of Breath Subjective Subjective No nausea this am. Feels better overall. No SOB with exertion this am. Objective Data Objective Data Vital Signs: Vital Signs Temp Pulse Resp BP Pulse Ox O2 Del Method 97.0 F L 60 16 117/47 L 94 Room Air 01/18/25 10:54 01/18/25 10:54 01/18/25 10:54 01/18/25 10:54 01/18/25 10:54 01/18/25 10:54 Oxygen Delivery Method Room Air Weight: 93 kg Body Mass Index (BMI) 36.3 Lab / Micro Data 01/18/25 04:17 01/18/25 04:17 Labs: Laboratory Results - last 24 hr 01/17/25 17:00: Troponin T High Sens 13 D 01/17/25 19:00: Troponin T Hi Sens 2 Hr 12 01/17/25 19:15: Vitamin B12 842 01/17/25 20:36: Troponin T Hi Sens 4Hr 13 01/18/25 04:17: WBC 8.4, RBC 3.92 L, Hgb 11.9 L, Hct 36.2 L, MCV 92.3, MCH 30.4, MCHC 32.9, RDW Std Deviation 49.1 H, RDW Coeff of Laina 14.6, Plt Count 245, MPV 10.3, Immature Gran % (Auto) 0.400, Neut % (Auto) 67.9, Lymph % (Auto) 17.9 L, M jeaine % (Auto) 10.7 H, Eos % (Auto) 2.5, Baso % (Auto) 0.6, Absolute Neuts (auto) 5.7, Absolute Lymphs (auto) 1.50, Nucleated RBC % 0, Sodium 143, Potassium 3.5, Chloride 105, Carbon Dioxide 28.6, Anion Gap 10, BUN 16, Creatinine 0.67 L, Estim Creat Clear Calc 63.17, Est GFR (MDRD) Non-Af 89, BUN/Creatinine Ratio 24.4 H, Glucose 108 H, Calcium 9.4, Phosphorus 4.0, Magnesium 2.1, Total Bilirubin 0.83, AST 23, ALT 19, Alkaline Phosphatase 71, Total Protein 6.5, Albumin 3.5, Globulin 3.0, Albumin/Globulin Ratio 1.2, TSH 3.120 Radiography Diagnostic Testing: Radiology Impression Gastric Emptying Nuclear Medicine 01/18/25 09:00 IMPRESSION: Normal semi solid phase gastric emptying. Reading Location: [place] [address] Rhythm Strip Rhythm Strip: A-fib Rate: 85 Ectopy: PVC(s) Physical Exam Const alert, oriented x3, no apparent distress and well nourished; Negative for average body habitus Constitutional Narrative: Morbidly obese, older, white female, lying in bed, appears comfortable, nontoxic, family at bedside General Appearance: cooperative HEENT normocephalic, head/scalp atraumatic and moist oral mucous membranes Eyes Eyes Narrative: No scleral icterus Resp normal respiratory effort, no retractions, no use of accessory muscles and clear to auscultation bilaterally Auscultation: Negative for crackles, rhonchi or wheezes Cardio regular rate, regular rhythm, S1 normal heart sound, S2 normal heart sound, no rub, no gallops and no clicks; Negative for no murmurs GI normal to inspection, nondistended, normoactive bowel sounds, soft to palpation and non-tender Neuro oriented x3, moves all extremities and no focal motor deficits Neuro Narrative: Intermittently forgetful Speech: speech normal Psych affect normal Psych Narrative: Pleasant, interacts appropriately Assessment & Plan Assessment/Plan (1) Pulmonary edema: (2) Dyspnea on exertion: (3) Paroxysmal atrial fibrillation: (4) Nausea: (5) Memory loss: PLAN: Plan Paroxysmal atrial fibrillation - converted to NSR -Has not had any Eliquis doses missed -Echo shows worsening MV disease and pt would likely benefit from intervention -ECHO shows EF 60%, Diastolic Dysfunction, severely enlarged LA, Mod enlarged RA with severe MVI and RVSP 50 mmHg - Qtc prolonged today so sotolol stopped - Repeat EKG in a.m. this evening -if Qtc better tonight then start amiodarone and repeat EKG in am - d/c metoprolol at discharge - Cardiology following Shortness of breath with exertion secondary to acute HFpEF - Last echo with normal EF however suspect her RVR has kicked her into some heart failure - proBNP is elevated for her age - stop lasix IV and change to PO BID - will give K replacement - Will monitor renal function electrolytes Nausea - Patient with morning nausea has been quite debilitating -non this am - TSH WNL - Gastric emptying study WNL - Patient does follow with Dr. David - MIC Patton ODT available - Outpt f/u with GI Memory loss - Daughter is concerned because her memory has been extremely poor in the last several months - TSH--> WNL - B12 level--> WNL - Folic acid pending - recommend outpt neurology follow up Celiac's disease - Continue follow-up with Dr. David after discharge - Patient with chronic diarrhea and related to this History of interstitial cystitis - No current complaints Hyperlipidemia - Continue atorvastatin Anxiety/depression - Continue home escitalopram Obesity - BMI 36.3 -Recommend weight loss - Patient should likely have outpatient polysomnography especially with atrial fibrillation diagnosis - Will recommend a discharge DVT prophylaxis - Continue home Eliquis CODE STATUS - Full code as discussed on admission Charges/Coding Visit Charges Inpatient E&M: 99667 Subs Hosp L2
--- NOTE | 2025-01-18 14:33 | CHAPLAIN ---
Type of Pastoral Visit _x__ Initial Visit ___ Follow-up Visit ___ On-call Visit ___ General Patient Visit ___ Spiritual Assessment ___ Family Conference ___ Bereavement ___ Rapid Response ___ Code Blue ___ Other (describe below) Pastoral Care Referral From _x__ Patient ___ Family ___ Nurse ___ Physician ___ Reception Interviewer ___ Feather Duster Winder ___ Other (describe below) Sacrament/Intervention _x__ Active listening ___ Anointing ___ Congregational ___ Bereavement ___ Communion _x__ Delmi exploration ___ ___ Life review _x__ Prayer ___ Reconciliation ___ Sacrament of Sick _x_ Supportive presence ___ Wedding ___ Other (describe below) Pastoral Comments patient and spouse are in the room together; pt exhibits anxiety as she describes her health issues and the new discovery of Afib; pt is expressive that she doesn't want to have a surgery; pt has been involved in a yazidism her entire life but has lately visited other churches too; spouse is very attentive to the patient; both ask for prayer and thank this front desk admin for presence and support
--- NOTE | 2025-01-18 16:00 | EKG12_ITS ---
Test Reason : AM EKG Blood Pressure : */* mmHG Vent. Rate : 61 BPM Atrial Rate : 61 BPM P-R Int : 142 ms QRS Dur : 86 ms QT Int : 478 ms P-R-T Axes : 38 11 6 degrees QTcB Int : 481 ms Normal sinus rhythm with sinus arrhythmia Nonspecific ST abnormality Abnormal ECG When compared with ECG of 18-Jan-2025 15:58, MANUAL COMPARISON REQUIRED DATA IS UNCONFIRMED Confirmed by Pato Simmons ([id number]), index editor STACEY TERRAZAS ([id number]) on 01/21/2025 11:55:29 AM Referred By: Confirmed By: Pato Simmons
[2025-01-18 16:50] VITALS: BP 134/54; PULSE 70; RESP 18; TEMP 36.2; O2SAT 98
[2025-01-18] MEDS: Furosemide 40 MG Tablet PO (16:51)
[2025-01-18 22:00] VITALS: O2SAT 98
[2025-01-18] MEDS: Atorvastatin Calcium 40 MG Tablet PO (22:00)
[2025-01-18 22:50] VITALS: BP 108/71; PULSE 66; RESP 16; TEMP 36.3; O2SAT 100
[2025-01-19 04:40] VITALS: BMI 36.3
[2025-01-19 05:15] VITALS: BP 112/60; PULSE 70; RESP 16; TEMP 36.7; O2SAT 95
--- NOTE | 2025-01-19 06:00 | EKG12_ITS ---
Test Reason : FLOOR ORDER Blood Pressure : */* mmHG Vent. Rate : 70 BPM Atrial Rate : 70 BPM P-R Int : 144 ms QRS Dur : 88 ms QT Int : 448 ms P-R-T Axes : 68 54 25 degrees QTcB Int : 483 ms Sinus rhythm with sinus arrhythmia with occasional Premature ventricular complexes Possible Left atrial enlargement Left ventricular hypertrophy with repolarization abnormality ( Sokolow-Neri ) Abnormal ECG When compared with ECG of 17-Jan-2025 05:28, MANUAL COMPARISON REQUIRED DATA IS UNCONFIRMED Confirmed by Pato Simmons ([id number]), supervising editor news reel STACEY TERRAZAS ([id number]) on 01/21/2025 11:57:11 AM Referred By: CÉSAR Confirmed By: Pato Simmons
[2025-01-19 07:15] LABS: Hematocrit 39.4 % (37-47); Hemoglobin 12.9 g/dL (12.0-15.0); Mean Corp Hgb Conc 32.7 g/dL (32-36); Mean Corpuscular Hgb 30.2 pg (27.0-32.0); Mean Corpuscular Volume 92.3 fL (81-99); Platelet Count 284 K/mm3 (150-450); RBC Distribution Width CV 14.7 % (11.6-14.6); RBC Distribution Width SD 49.5 fl (35.1-43.9); Red Blood Count 4.27 M/mm3 (4.2-5.4); White Blood Count 9.4 K/mm3 (4.4-11.0)
[2025-01-19 07:19] LABS: Scan Indicated on CBC? Y/N NO
[2025-01-19 08:03] LABS: ALB/GLOB Ratio 1.1 RATIO (0.9-2.4); AST(SGOT) 22 U/L (<=31); Alanine Aminotransfer ALT/SGPT 19 U/L (<=34); Albumin, Serum 3.6 g/dL (3.4-4.8); Alkaline Phosphatase 79 U/L (35-104); Anion Gap 10 (5-15); BUN 16 mg/dL (4-19); BUN/Creat Ratio 19.3 RATIO (10-20); Calcium,Total 9.5 mg/dL (7.6-11.0); Carbon Dioxide 29.5 mmol/L (21.0-32.0); Chloride 103 mmol/L (98-108); Creatinine, Serum 0.84 mg/dL (0.70-1.20); EST Glomerular Filtration Rate 71 (>60); Estimated Creatinine Clearance 59.81 ml/min (50-250); Globulin 3.3 g/dL (2.2-4.2); Glucose 104 mg/dL (70-99); Potassium 4.2 mmol/L (3.3-5.1); Protein, Total 6.9 g/dL (5.9-8.4); Sodium Level 142 mmol/L (133-145); Total Bilirubin 0.66 mg/dL (0.00-1.30)
[2025-01-19 09:51] VITALS: BP 111/49; PULSE 80; RESP 16; TEMP 36.8; O2SAT 98
[2025-01-19] MEDS: Potassium Chloride Oral Tablet 20 MEQ PO (09:55)
[2025-01-19] MEDS: APIXABAN 5 MG TABLET PO (09:55)
[2025-01-19] MEDS: Empagliflozin 10 MG Tablet PO (09:55)
[2025-01-19] MEDS: Lactobacillis Acidophilus 1 CAP PO (09:55)
[2025-01-19] MEDS: Escitalopram Oxalate 10 MG Tablet 5 MG PO (09:56)
[2025-01-19] MEDS: Furosemide 40 MG Tablet PO (09:56)
[2025-01-19] MEDS: SimETHICONE 80 MG Chewable Tablet PO (09:57)
[2025-01-19] MEDS: Multivitamins,Therapeutic Tablet 1 TABLET PO (09:57)
[2025-01-19] MEDS: Lisinopril 5 MG Tablet PO (09:57)
[2025-01-19] MEDS: Ascorbic Acid 500 MG Tablet PO (09:57)
[2025-01-19] MEDS: Amiodarone 200 MG Tablet PO (10:05)
--- NOTE | 2025-01-19 11:15 | DS.PCM_ITS ---
Providers Date of Admission: 01/17/25 Date of Discharge: 01/19/25 Primary Care Physician: Dr. Flaco Lee MD Reason For Visit: AFIB WITH RVR Diagnosis Discharge Diagnosis (1) Pulmonary edema: Status: Acute Code(s): J81.1 - Chronic pulmonary edema (2) Dyspnea on exertion: Status: Acute Code(s): R06.09 - Other forms of dyspnea (3) Paroxysmal atrial fibrillation: Status: Acute Code(s): I48.0 - Paroxysmal atrial fibrillation (4) Nausea: Status: Acute Code(s): R11.0 - Nausea (5) Memory loss: Status: Acute Code(s): R41.3 - Other amnesia Plan Paroxysmal atrial fibrillation - converted to NSR -Has not had any Eliquis doses missed -Echo shows worsening MV disease and pt would likely benefit from intervention -ECHO shows EF 60%, Diastolic Dysfunction, severely enlarged LA, Mod enlarged RA with severe MVI and RVSP 50 mmHg - Qtc prolonged today so sotolol stopped - Repeat EKG in a.m. this evening -if Qtc better tonight then start amiodarone and repeat EKG in am - d/c metoprolol at discharge - Cardiology following Shortness of breath with exertion secondary to acute HFpEF - Last echo with normal EF however suspect her RVR has kicked her into some heart failure - proBNP is elevated for her age - stop lasix IV and change to PO BID - will give K replacement - Will monitor renal function electrolytes Nausea - Patient with morning nausea has been quite debilitating -non this am - TSH WNL - Gastric emptying study WNL - Patient does follow with Dr. David - MIC Patton ODT available - Outpt f/u with GI Memory loss - Daughter is concerned because her memory has been extremely poor in the last several months - TSH--> WNL - B12 level--> WNL - Folic acid pending - recommend outpt neurology follow up Celiac's disease - Continue follow-up with Dr. David after discharge - Patient with chronic diarrhea and related to this History of interstitial cystitis - No current complaints Hyperlipidemia - Continue atorvastatin Anxiety/depression - Continue home escitalopram Obesity - BMI 36.3 -Recommend weight loss - Patient should likely have outpatient polysomnography especially with atrial fibrillation diagnosis - Will recommend a discharge DVT prophylaxis - Continue home Eliquis CODE STATUS - Full code as discussed on admission Medications at Discharge Home Medications multivitamin 1 tab PO DAILY health maintenance 01/20/23 ascorbic acid (vitamin C) 500 mg tablet (C-500) 500 mg PO DAILY 03/18/23 cranberry 500 mg capsule 500 mg PO TID 03/18/23 atorvastatin 40 mg tablet 40 mg PO QHS 05/19/23 lactobacillus combination no.9 4 billion cell capsule (Adult 50 Plus Probiotic) 4,000 mmu cells PO DAILY 05/19/23 acetaminophen 500 mg tablet 1,000 mg PO DAILY pain 01/25/24 simethicone 80 mg chewable tablet (Gas Relief (simethicone)) 80 mg PO BID 01/25/24 ubrogepant 100 mg tablet (Ubrelvy) mg PO .0prn PRN headache 01/25/24 escitalopram oxalate 5 mg tablet (Lexapro) 5 mg PO DAILY 05/10/24 nitroglycerin 0.4 mg sublingual tablet 0.4 mg sublingual Q5-15M PRN Chest Pain #25 tabs 07/26/24 apixaban 5 mg tablet (Eliquis) 5 mg PO BID #180 tabs 11/08/24 amiodarone 200 mg tablet 200 mg PO DAILY #30 tabs 01/19/25 empagliflozin 10 mg tablet (Jardiance) 10 mg PO DAILY #30 tabs 01/19/25 furosemide 40 mg tablet 40 mg PO BIDLX #60 tabs 01/19/25 lisinopril 5 mg tablet 5 mg PO BID #30 tabs 01/19/25 ondansetron 4 mg disintegrating tablet 8 mg (2 x 4 mg) PO Q8H PRN PRN Nausea/Vomiting #30 tabs 01/19/25 potassium chloride 20 mEq tablet,extended release(part/cryst) 20 meq PO BIDCM #60 tabs 01/19/25 Hospital Course Operations None Procedures 2-D Echocardiogram, EKG and - (Gastric emptying study) Summary of Care Provided Minutes Spent on Discharge: 37 Hospital Course: SAHARA CRUZ, is a 79 F who presented to the emergency department [facility] on 01/17/2025 with a chief complaint of shortness of breath. She reported been ongoing for about a week and she came in around 5:30 in the morning because it had clinically gotten worse. She was seen in the [facility] community health office today prior to presentation for this and has a known history of paroxysmal atrial fibrillation. She was noted to be in A-fib yesterday and it was thought that she had been in this for possibly a while with RVR and was distant from that so they plan to cardioversion 4 01/18/2025. Patient thinks she may have had some swelling in her legs but denies any fever or chills. She does state that she has nausea just about every morning now with no vomiting but it resolves after about 4 hours. She does follow with Dr. David for celiac's disease at baseline and her last visit with him was in October. She states she has not notified him as of yet for this. She has appointment to see him on Tuesday. She does have a known history of mitral valve disease and the case was discussed with cardiology prior to admission and they thought maybe her mitral valve disease was getting worse causing worsening atrial fibrillation. They suggest sotalol rather than cardioversion. Her daughter also interjects that over the last few months her memory has been slowly getting worse. Vital signs emergency department show a temperature of 97.6, heart rate 89, respiratory rate was 18, blood pressure was 145/98 and pulse ox was 93% on room air. CBC showed a mild chronic stable anemia but was otherwise unremarkable. Chemistry panel was unremarkable other than hyperglycemia with a glucose level of 125. Troponin has been unremarkable. BNP was elevated at 2630. Her chest x-ray did appear to be wet with bilateral congestion related to volume overload and EKG showed A-fib with RVR. She was dosed with sotalol 80 mg x 1 dose in emergency department at the recommendation of cardiology and was given 1 dose of Lasix. She was admitted to PCU and monitored on telemetry. An echocardiogram was performed and showed worsening mitral valve disease. EF was estimated at 60% with diastolic dysfunction noted, severe left atrial enlargement, moderate right atrial enlargement and a right ventricular systolic pressure of 50 mmHg. She did convert to sinus rhythm on sotalol unfortunately, with the sotalol her QTc prolongated so we had to discontinue the sotalol and let a washout occur. Follow-up EKG showed QTc normalization so she was started on amiodarone 200 mg daily. She maintained sinus rhythm. Cardiology felt she could be discharged with follow-up in the outpatient clinic next week. She will need referral for evaluation by CT surgery or interventional cardiology they can perform mitral valve clipping. This will be done as an outpatient. She was complaining of a.m. nausea but did not have a significant mount while hospitalized. We did do a gastric emptying study which was found to be normal. We did discharge her with some as needed Zofran to utilize on an as-needed basis in the morning if she develop nausea. She also already has follow-up with Dr. David her primary diet technician registered and we discussed the importance of her telling him about this ongoing issue. If her memory issues continue to be persistent she may need referral to neurology. Patient was discharged in stable condition on 01/19/2025. Prescriptions for the amiodarone as well as Jardiance and lisinopril were sent to the pharmacy. These were added by cardiology. They also wanted her on Lasix 40 mg p.o. twice daily and we added supplemental potassium. She should have a repeat basic metabolic profile in the next week. Discharge diagnoses: Paroxysmal atrial fibrillation Shortness of breath Acute HFpEF Moderate to severe mitral valve insufficiency A.m. nausea Memory loss Celiac disease Interstitial cystitis Hyperlipidemia Anxiety Depression Obesity Physical Exam Const alert, oriented x3, no apparent distress, no limitations and well nourished; Negative for average body habitus Constitutional Narrative: Morbidly obese, older, white female, sitting up in bed watching television, appears comfortable, nontoxic, family at bedside General Appearance: cooperative, comfortable, well kempt and well developed Exam Limitations: no limitations Nutritional Appearance: obese HEENT normocephalic, head/scalp atraumatic and moist oral mucous membranes HEENT Narrative: Mallampati 3, no thrush Eyes conjunctivae normal Eyes Narrative: No scleral icterus Neck supple Neck Narrative: Neck is short and thick, trachea midline Resp normal respiratory effort, no retractions, no use of accessory muscles and clear to auscultation bilaterally Auscultation: Negative for crackles, rhonchi or wheezes Cardio regular rate, regular rhythm, S1 normal heart sound, S2 normal heart sound, no rub, no gallops and no clicks; Negative for no murmurs GI normal to inspection, nondistended, normoactive bowel sounds, soft to palpation and non-tender GI Narrative: Protuberant abdomen Extremity no clubbing, cyanosis or edema Extremity Narrative: Pedal radial pulses are 2+ Skin skin turgor normal, no jaundice, no petechiae and no mottling Neuro oriented x3, moves all extremities and no focal motor deficits Speech: speech normal Psych affect normal Psych Narrative: Pleasant, interacts appropriately Weight / BMI Weight Weight: 93 kg Body Mass Index (BMI) 36.3 ABG / Lab / Microbiology Data 01/19/25 06:39 01/19/25 06:39 Laboratory: Laboratory Results - last 24 hr 01/18/25 04:17: RBC Folate Hemolysate 533.0, RBC Folate 1363, Hematocrit 39.1 01/19/25 06:39: WBC 9.4, RBC 4.27, Hgb 12.9, Hct 39.4, MCV 92.3, MCH 30.2, MCHC 32.7, RDW Std Deviation 49.5 H, RDW Coeff of Laina 14.7 H, Plt Count 284, MPV 10.0, Sodium 142, Potassium 4.2, Chloride 103, Carbon Dioxide 29.5, Anion Gap 10, BUN 16, Creatinine 0.84, Estim Creat Clear Calc 59.81, Est GFR (MDRD) Non-Af 71, BUN/Creatinine Ratio 19.3, Glucose 104 H, Calcium 9.5, Total Bilirubin 0.66, AST 22, ALT 19, Alkaline Phosphatase 79, Total Protein 6.9, Albumin 3.6, Globulin 3.3, Albumin/Globulin Ratio 1.1 Radiography Diagnostic Testing: Radiology Impression Gastric Emptying Nuclear Medicine 01/18/25 09:00 IMPRESSION: Normal semi solid phase gastric emptying. Reading Location: [place] [address] D/C Instructions Discharge Diet: Low fat / Low cholesterol Discharge Activity: Return to Normal Activity DC O2, CPAP, BIPAP Needs Home O2 Discharge instructions: No Meaningful Use Info Meaningful Use Meaningful Use Diagnoses (Choose all that apply): None applicable Ischemic Stroke Statin Dosing Therapy Reference: STATIN DOSE THERAPY REFERENCE: * Patients > 75 years receive moderate or high dose statin therapy. * Patients 75 years or YOUNGER should receive HIGH intensity statin dose unless contraindicated. You will be required to document reason for non-treatment if statin daily dose does not meet guidelines. HIGH DOSE STATIN THERAPY DAILY Atorvastatin > than or = to 40 mg Rosuvastatin > than or = to 20 mg Amlodipine + Atorvastatin > than or = to 2.5/40 mg Ezetimibe + Simvastatin 10/80 mg Simvastatin 80mg Discharge Plan Admission Admit Date/Time: 01/17/25 07:16 Primary Reason for Your Visit: Shortness of breath Attending Provider: Veronica Louise Primary Care Provider: Flaco Lee Discharge Orders/Prescriptions Prescriptions: New lisinopril 5 mg Tablet 5 mg PO BID Qty: 30 0RF potassium chloride 20 mEq Tablet,Er Particles/Crystals 20 meq PO BIDCM Qty: 60 0RF furosemide 40 mg Tablet 40 mg PO BIDLX Qty: 60 0RF Jardiance 10 mg Tablet 10 mg PO DAILY Qty: 30 0RF amiodarone 200 mg Tablet 200 mg PO DAILY Qty: 30 0RF ondansetron 4 mg Tablet,Disintegrating 8 mg PO Q8H PRN PRN (Reason: Nausea/Vomiting) Qty: 30 0RF Continued atorvastatin 40 mg tablet 40 mg PO QHS Adult 50 Plus Probiotic 4 billion cell capsule 4,000 mmu cells PO DAILY Rx Instructions: administer with a meal simethicone [Gas Relief (simethicone)] 80 mg tablet,chewable 80 mg PO BID Ubrelvy 100 mg tablet PO .0prn PRN (Reason: headache) escitalopram oxalate [Lexapro] 5 mg tablet 5 mg PO DAILY nitroglycerin 0.4 mg tablet, sublingual 0.4 mg SUBLINGUAL Q5-15M PRN (Reason: Chest Pain) Qty: 25 2RF acetaminophen 500 mg tablet 1,000 mg PO DAILY multivitamin Tablet 1 tab PO DAILY cranberry 500 mg capsule 500 mg PO TID Rx Instructions: administer with meals ascorbic acid (vitamin C) [C-500] 500 mg tablet 500 mg PO DAILY Eliquis 5 mg tablet 5 mg PO BID Qty: 180 3RF Discontinued metoprolol tartrate 50 mg tablet 100 mg PO BID Qty: 180 3RF Referrals / Follow Up: Lawrence David DO [Med Staff - Active Staff] - See Referral Note (as scheduled) Flaco Lee MD [Primary Care Provider] - Within 2 Weeks Sasha Hewitt PA [Med Staff - Adv Practice Prof] - 01/24/25 9:30 am Disposition Disposition (needs filled in before D/C Order can be placed): Home, Self Care Charges/Coding Visit Charges Inpatient E&M: 86651 Disch Hosp >30min
[2025-01-19 13:08] LABS: Folate, RBC (Hct) Test 39.1 % (34.0-46.6); Folates, RBC Test 1363 ng/mL (>498)
[2025-01-19 13:36] VITALS: BP 112/51; PULSE 80; RESP 17; TEMP 36.4; O2SAT 97
== END 2025-01-19 14:08 | disposition home or self-care (01) | DRG 308 ==
LOC: ED 07:24 → PCU 09:14
PROVIDERS: Internal Medicine Cardiovascular Disease; Admitting Provider Internal Medicine; Emergency Provider Emergency Medicine; PCP Family Medicine; Visit Provider Internal Medicine
DX: I48.0 Paroxysmal atrial fibrillation (principal); I50.31 Acute diastolic (congestive) heart failure; J81.1 Chronic pulmonary edema; I47.20 Ventricular tachycardia, unspecified; I34.0 Nonrheumatic mitral (valve) insufficiency; Z68.36 Body mass index [BMI] 36.0-36.9, adult; M79.7 Fibromyalgia; E78.00 Pure hypercholesterolemia, unspecified; K52.9 Noninfective gastroenteritis and colitis, unspecified; K21.00 Gastro-esophageal reflux disease with esophagitis, without bleeding; Z79.01 Long term (current) use of anticoagulants; Z90.710 Acquired absence of both cervix and uterus; R41.3 Other amnesia; Z82.49 Family history of ischemic heart disease and other diseases of the circulatory system; K90.0 Celiac disease; E66.9 Obesity, unspecified; I49.3 Ventricular premature depolarization; R06.09 Other forms of dyspnea; Z79.899 Other long term (current) drug therapy; Z79.02 Long term (current) use of antithrombotics/antiplatelets
CPT/HCPCS: 36415; 71045; 71046; 78264; 80048; 80053; 82607; 82747; 83735; 83880; 84100; 84443; 84484; 85014; 85025; 85027; 93005; 93306; 94668; 99252; 99285; A9541; A4216; G0463; J1938; J2405

== ENCOUNTER → 2025-01-21 | Outpatient (CLI) | payer MEDICARE, SELFPAY ==
[2025-01-21 14:56] LABS: Bacteria 0 SEEN /hpf (None Seen); Mucous, Urine 0 SEEN /hpf (<or=2+); Red Blood Cells-Urine 0 SEEN /hpf (0-5); Squamous Epithelial Cells - UA 0 SEEN /hpf (5-10)
[2025-01-21 15:00] LABS: Absolute Lymphocyte Count 1.74 X10^3/uL (0.83-4.51); Absolute Neutrophil Count 6.5 X10^3/uL (2.0-7.7); Basophil# 0.06 X10^3/uL; Basophil% 0.6 % (0-1); Eosinophil# 0.13 X10^3/uL; Eosinophils% 1.3 % (0-5); Hematocrit 44.3 % (37-47); Hemoglobin 14.2 g/dL (12.0-15.0); Lymphocyte # 1.74 X10^3/ul (0.83-4.51); Lymphocyte % 18.1 % (19-41); Mean Corp Hgb Conc 32.1 g/dL (32-36); Mean Corpuscular Hgb 29.6 pg (27.0-32.0); Mean Corpuscular Volume 92.5 fL (81-99); Mean Platelet Vol. 10.4 fl (6.2-12.0); Monocyte# 1.13 X10^3/uL; Monocyte% 11.7 % (0-10); NRBC Flagged by Analyzer 0 % (0-5); Neutrophil # 6.53 X10^3/uL (2.7-7.7); Neutrophil % 67.9 % (47-70); Platelet Count 324 K/mm3 (150-450); RBC Distribution Width CV 14.7 % (11.6-14.6); RBC Distribution Width SD 49.9 fl (35.1-43.9); Red Blood Count 4.79 M/mm3 (4.2-5.4); White Blood Count 9.6 K/mm3 (4.4-11.0)
[2025-01-21 15:09] LABS: Color, Urine Yellow (Yellow); Glucose, Dipstick 1000 mg/dl (Normal); Ketone-Dipstick Negative (Negative); Leukocyte Esterase-Dipstick 25 /ul (Negative); Nitrite-Dipstick Negative (Negative); Occult Blood-Urine Negative /ul (Negative); Protein-Dipstick 15 mg/dl (Negative); Urine Bilirubin Dipstick Negative (Negative); Urine Clarity Clear (Clear); Urine Urobilinogen Normal (Normal)
[2025-01-21 15:19] LABS: White Blood Cells 0-5 SEEN /hpf (0-5)
[2025-01-21 15:45] LABS: Anion Gap 12 (5-15); BUN 27 mg/dL (4-19); BUN/Creat Ratio 17.9 RATIO (10-20); Calcium,Total 9.8 mg/dL (7.6-11.0); Carbon Dioxide 25.4 mmol/L (21.0-32.0); Chloride 103 mmol/L (98-108); Creatinine, Serum 1.49 mg/dL (0.70-1.20); EST Glomerular Filtration Rate 36 (>60); Glucose 123 mg/dL (70-99); Potassium 5.1 mmol/L (3.3-5.1); Pro- Brain NATRIURETIC PEPTIDE 2889 pg/mL (<=1800); Sodium Level 140 mmol/L (133-145)
== END | disposition home or self-care (01) ==
LOC: LAB 13:55
PROVIDERS: PCP Family Medicine; Referring Provider Nurse Practitioner Family; Visit Provider Nurse Practitioner Family
DX: R06.09 Other forms of dyspnea (principal); I48.0 Paroxysmal atrial fibrillation; I47.29 Other ventricular tachycardia; I34.0 Nonrheumatic mitral (valve) insufficiency; N39.0 Urinary tract infection, site not specified
CPT/HCPCS: 36415; 80048; 81001; 83880; 85025

== ENCOUNTER → 2025-02-05 | Outpatient (CLI) | payer MEDICARE, SELFPAY ==
[2025-02-05 16:06] LABS: Absolute Lymphocyte Count 1.75 X10^3/uL (0.83-4.51); Absolute Neutrophil Count 6.8 X10^3/uL (2.0-7.7); Basophil# 0.05 X10^3/uL; Basophil% 0.5 % (0-1); Eosinophil# 0.08 X10^3/uL; Eosinophils% 0.8 % (0-5); Hematocrit 45.5 % (37-47); Hemoglobin 14.7 g/dL (12.0-15.0); Lymphocyte # 1.75 X10^3/ul (0.83-4.51); Lymphocyte % 18.1 % (19-41); Mean Corp Hgb Conc 32.3 g/dL (32-36); Mean Corpuscular Hgb 29.6 pg (27.0-32.0); Mean Corpuscular Volume 91.5 fL (81-99); Monocyte# 0.96 X10^3/uL; Monocyte% 9.9 % (0-10); NRBC Flagged by Analyzer 0 % (0-5); Neutrophil % 70.4 % (47-70); Platelet Count 267 K/mm3 (150-450); RBC Distribution Width CV 14.7 % (11.6-14.6); RBC Distribution Width SD 48.8 fl (35.1-43.9); Red Blood Count 4.97 M/mm3 (4.2-5.4); White Blood Count 9.7 K/mm3 (4.4-11.0)
[2025-02-05 16:31] LABS: ALB/GLOB Ratio 1.2 RATIO (0.9-2.4); AST(SGOT) 23 U/L (<=31); Alanine Aminotransfer ALT/SGPT 18 U/L (<=34); Albumin, Serum 4.1 g/dL (3.4-4.8); Alkaline Phosphatase 83 U/L (35-104); Anion Gap 12 (5-15); BUN 19 mg/dL (4-19); BUN/Creat Ratio 20.6 RATIO (10-20); Carbon Dioxide 25.5 mmol/L (21.0-32.0); Chloride 103 mmol/L (98-108); Creatinine, Serum 0.93 mg/dL (0.70-1.20); EST Glomerular Filtration Rate 63 (>60); Globulin 3.4 g/dL (2.2-4.2); Glucose 112 mg/dL (70-99); Potassium 4.4 mmol/L (3.3-5.1); Protein, Total 7.5 g/dL (5.9-8.4); Sodium Level 141 mmol/L (133-145); Total Bilirubin 0.48 mg/dL (0.00-1.30)
== END | disposition home or self-care (01) ==
LOC: LAB 14:52
PROVIDERS: PCP Family Medicine; Referring Provider Internal Medicine Gastroenterology; Visit Provider Internal Medicine Gastroenterology
DX: K92.1 Melena (principal)
CPT/HCPCS: 36415; 80053; 85025

== ENCOUNTER → 2025-02-18 | Outpatient (CLI) | payer MEDICARE, SELFPAY ==
--- NOTE | 2025-02-18 09:45 | ECHOL_ITS ---
Reason For Study Reason For Study: RE-EVALUATE MV Procedure This was a limited 2D transthoracic echocardiogram. Exam performed in department. Left Ventricle Normal LV size. Apical false tendon noted. The left ventricular ejection fraction is 65 %. Stage 2 diastolic dysfunction. No regional wall motion abnormalities noted. Right Ventricle Normal RV size. Normal systolic function. Atria The left atrium is moderately enlarged. Normal right atrium. Mitral Valve The mitral papillary muscle appears thickened and/or calcified. Moderate mitral valve prolapse. Moderate (2+) eccentric mitral valve insufficiency. Moderate (2+) posteriorly directed mitral valve insufficiency. Tricuspid Valve Normal tricuspid valve. Mild to moderate (1-2+) tricuspid valve insufficiency. Aortic Valve Trisinus/trileaflet aortic valve. Pulmonic Valve Normal pulmonic valve. Great Vessels Normal aortic root. The pulmonary artery is normal size. Normal inferior vena cava. Pericardium/Pleural No pericardial effusion. MMode/2D Measurements & Calculations LVIDd: 4.6 cm IVSd: 1.2 cm LVOT diam: 2.0 cm LVIDs: 3.1 cm LVPWd: 1.6 cm LVOT area: 3.1 cm2 FS: 32.8 % LAV(MOD-bp): 97.6 ml LVAd ap4: 30.7 cm2 SV(MOD-sp4): 62.7 ml LAV(MOD-bp) Indexed: 50.5 ml/m2 LVLd ap4: 7.6 cm SI(MOD-sp4): 32.4 ml/m2 LAV(MOD-sp2): 73.6 ml EDV(MOD-sp4): 100.9 ml LAV(MOD-sp4): 124.5 ml EDV(sp4-el): 105.1 ml LVAs ap4: 16.0 cm2 LVLs ap4: 5.8 cm ESV(MOD-sp4): 38.2 ml ESV(sp4-el): 37.3 ml EF(MOD-sp4): 62.2 % EF(sp4-el): 64.5 % SV(sp4-el): 67.8 ml LA A4 area: 32.8 cm2 LA dimension(2D): 5.0 cm RA A4 area: 18.7 cm2 Time Measurements MV dec time: 0.17 sec Doppler Measurements & Calculations MV E max kayla: 87.2 cm/sec MV V2 max: 114.4 cm/sec MV dec slope: 513.9 cm/sec2 MV A max kayla: 44.1 cm/sec MV max P.2 mmHg MV E/A: 2.0 MV V2 mean: 60.6 cm/sec MV mean P.9 mmHg MV V2 VTI: 33.2 cm MR max kayla: 580.0 cm/sec MR max P.6 mmHg MR mean kayla: 463.3 cm/sec MR mean P.3 mmHg MR VTI: 206.8 cm ECHO/Echo, Limited Study Interpretation Summary Normal LV size. Apical false tendon noted. Moderate mitral valve prolapse. Moderate (2+) eccentric mitral valve insufficiency. The left ventricular ejection fraction is 65 %. No regional wall motion abnormalities noted. Moderate (2+) posteriorly directed mitral valve insufficiency. Stage 2 diastolic dysfunction. Ordering Physician: Antonio San Referring Physician: Antonio San Performed By: Zarina Caban RCS
== END | disposition home or self-care (01) ==
LOC: CVS 09:42
PROVIDERS: PCP Family Medicine; Referring Provider Nurse Practitioner Family; Visit Provider Nurse Practitioner Family
DX: I34.0 Nonrheumatic mitral (valve) insufficiency (principal)
CPT/HCPCS: 93308

== ENCOUNTER 2025-03-13 10:14 | Day surgery (SDC) | payer MEDICARE, SELFPAY ==
[2025-03-07 16:06] LABS: Hematocrit 41.8 % (37-47); Hemoglobin 13.6 g/dL (12.0-15.0); Immature Granulocytes Count 0.020 X10^3/uL (0.0-0.0); Mean Corp Hgb Conc 32.5 g/dL (32-36); Mean Corpuscular Volume 93.1 fL (81-99); Mean Platelet Vol. 10.6 fl (6.2-12.0); NRBC Flagged by Analyzer 0 % (0-5); Platelet Count 243 K/mm3 (150-450); RBC Distribution Width CV 14.6 % (11.6-14.6); RBC Distribution Width SD 49.7 fl (35.1-43.9); Red Blood Count 4.49 M/mm3 (4.2-5.4); White Blood Count 7.1 K/mm3 (4.4-11.0)
[2025-03-07 16:39] LABS: Anion Gap 12 (5-15); BUN 14 mg/dL (4-19); BUN/Creat Ratio 12.8 RATIO (10-20); Calcium,Total 10.0 mg/dL (7.6-11.0); Carbon Dioxide 25.0 mmol/L (21.0-32.0); Chloride 103 mmol/L (98-108); Glucose 133 mg/dL (70-99); Potassium 4.4 mmol/L (3.3-5.1)
[2025-03-12 07:02] VITALS: BMI 35.9
--- NOTE | 2025-03-13 10:21 | ECHOTEE_ITS ---
Reason For Study Reason For Study: MITRAL VALVE PROLAPSE Medication JOSH probe 6VT-D (SN [id number]) passed without difficulty. No complications were noted. Cetacaine Topical Shel[place] given X3 orally. Versed 2 mg given slow IVP. Fentanyl 50 mcg given slow IVP. Performed a rapid injection of agitated mix of 9 cc saline and 1cc air to assess for atrial septal defect. Left Ventricle Normal LV size. The left ventricular ejection fraction is 60 %. No regional wall motion abnormalities noted. Right Ventricle Normal RV size. Normal systolic function. Atria Bubble contrast study is negative for PFO/ASD. The left atrium is moderately enlarged. No thrombus is detected in the left atrial appendage. Normal right atrium. Mitral Valve Moderate mitral valve prolapse, bileaflet. Moderately severe (3+) eccentric mitral valve insufficiency. Tricuspid Valve Normal tricuspid valve. Aortic Valve Trisinus/trileaflet aortic valve. Pulmonic Valve Normal pulmonic valve. Vessels Normal aortic root. Normal ascending aorta. The pulmonary artery is normal size. Pulmonary venous flow normal. ECHO/Echo Transesophageal (JOSH) Interpretation Summary Bubble contrast study is negative for PFO/ASD. Normal LV size. The left ventricular ejection fraction is 60 %. Moderate mitral valve prolapse, bileaflet Moderately severe (3+) eccentric mitral valve insufficiency. Ordering Physician: Antonio San Referring Physician: Cayetano Marie MD Performed By: Tosin Smith, EMMA
--- NOTE | 2025-04-22 09:46 | CL.D_ITS ---
Patient Name: SAHARA CRUZ Study Date: 03/13/2025 Performing: Cayetano Marie MD Ht: 63 inches 160.02 cm : 1945 Wt: 203.3 lbs 92.08 kg Age: 79 Gender: female BSA: 1.95 PROCEDURE(S) PERFORMED DC01-([id number])LHC/COR/LV CLINICAL PROFILE AND INDICATIONS Indications: Valvular Disease Heart Failure: None Stress/Imaging Stress/Image Study Performed: No CAD Presentations: Other: SOB CONCLUSIONS Normal coronary arteries Normal LV size, wall motion,and systolic function Mitral Valve Insufficiency Moderate RECOMMENDATIONS DESCRIPTION OF PROCEDURE The patient arrived to the procedure lab. The risks and benefits of the procedure as well as a full description of our services here and current unavailability of surgical backup were fully explained to the patient and/or their significant other prior to the catheterization. The Timeout was completed, verifying the correct patient and procedure. The patient's procedural site was prepped and draped in the usual fashion. Local anesthetic was given subcutaneously to right radial region with Lidocaine 2%. Using a modified Seldinger technique, arterial access was obtained via the right radial artery, a 6Fr sheath was inserted. Right Coronary Artery selective angiography was then performed in multiple views using a 5 Fr. 4.0 [place] catheter. Left Coronary Artery selective angiography was performed in multiple views using a 5 Fr. 4.0 [place] catheter. Left Ventriculography was performed in MARIANO projection using a 5 Fr. Pigtail catheter. LV to AO pullback pressures were then recorded.The arterial sheath was pulled and a TR Band was applied for hemostasis CORONARY ANGIOGRAPHY DOMINANCE: Right Dominant LEFT HEART ASSESSMENT Left Ventricular Ejection Fraction: by LV Gram 60 % Normal LV wall motion Normal Left Ventricular systolic function LEFT MAIN: Angiographically normal LEFT ANTERIOR DESCENDING ARTERY: Angiographically normal CIRCUMFLEX ARTERY: Angiographically normal RIGHT CORONARY ARTERY: Angiographically normal VALVE FINDINGS: Mitral Valve Calcification Moderate Mitral Valve Insufficiency - Grade 3 COMPLICATIONS No Complications PROCEDURE MEDICATIONS Versed 1 mg IV Versed 1 mg IV Oxygen: 2 L/min via nasal cannula Aspirin (325mg) 1 Tabs PO @ 03/13/2025 10:41:27 Heparin given IA 03/13/2025 13:03:14 Verapamil 2.5mg, Ntg 100mcgs, 3000 units of Heparin given [place] 03/13/2025 13:03:14 SUMMARY OF HEMODYNAMIC DATA Time AIR REST ECG 10:46:33 AO 130/64 (89) SA 13:08:22 LV 140/12, 18 13:15:48 LV 138/13, 19 13:15:56 LV 140/15, 22 13:17:47 LVp 137/18, 26 13:17:50 AOp 135/55 (84) 13:17:57 Signed By Cayetano Marie MD On 03/19/2025 19:08:25 Cayetano Marie MD
== END 2025-03-13 15:07 | disposition home or self-care (01) ==
PROVIDERS: Nurse Practitioner Family; PCP Family Medicine; Referring Provider Internal Medicine Cardiovascular Disease; Visit Provider Internal Medicine Cardiovascular Disease
DX: I34.1 Nonrheumatic mitral (valve) prolapse (principal); I50.32 Chronic diastolic (congestive) heart failure; I48.0 Paroxysmal atrial fibrillation; I47.29 Other ventricular tachycardia; E66.9 Obesity, unspecified; I34.0 Nonrheumatic mitral (valve) insufficiency; K21.9 Gastro-esophageal reflux disease without esophagitis; F41.9 Anxiety disorder, unspecified; F32.A Depression, unspecified; E78.00 Pure hypercholesterolemia, unspecified; M79.7 Fibromyalgia; G43.909 Migraine, unspecified, not intractable, without status migrainosus; Z68.35 Body mass index [BMI] 35.0-35.9, adult; Z87.19 Personal history of other diseases of the digestive system; Z86.73 Personal history of transient ischemic attack (TIA), and cerebral infarction without residual deficits; Z79.01 Long term (current) use of anticoagulants; Z90.49 Acquired absence of other specified parts of digestive tract; Z79.899 Other long term (current) drug therapy
CPT/HCPCS: 36415; 80048; 85025; 93312; 93320; 93325; 93458; 99152; 99153; Q9967; A4216; C1769; C1894

== ENCOUNTER → 2025-04-17 | Outpatient (CLI) | payer MEDICARE, SELFPAY ==
--- NOTE | 2025-04-17 05:59 | CT_ITS ---
PROCEDURE: ABDOMEN/PELVIS WITH CONTRAST 04/17/2025 REASON FOR EXAM: DIARRHEA AND FECAL OCCULT POSITIVE STOOLS TECHNIQUE: ABDOMEN/PELVIS WITH CONTRAST Coronal and Sagittal reconstruction series were provided. CONTRAST: Isovue-300 VOLUME: 100 mL One or more dose reduction techniques were used (e.g., Automated exposure control, adjustment of the mA and/or kV according to patient size, use of iterative reconstruction technique. RADIATION DOSE SUMMARY: CTDlvol: 18 mGy DLP: 909.27 mGycm COMPARISON: None FINDINGS: Lung bases: Lung bases are clear. Calcification of the mitral valve annulus. Liver: There is a 1 cm cyst in the anterior superior aspect of the right lobe of the liver. Tiny cysts are seen in the midportion of the right lobe of the liver as well as the medial aspect of the left lobe. Tiny cyst also seen in the inferior aspect of the right lobe of the liver. Gallbladder: Surgically absent. Spleen: Normal size. Pancreas: Normal size without evidence of mass surrounding inflammation or ductal dilation. Adrenals: Unremarkable Kidneys: Unremarkable Bladder: Unremarkable Reproductive Organs: Prior hysterectomy. Adnexal regions are unremarkable. Bowel: Colonic diverticulosis without diverticulitis. Moderate amount of fecal material is seen in the colon. Appendix: The appendix is not identified. There is no inflammatory process identified in the right lower quadrant to suggest appendicitis. Lymph nodes: No suspicious lymph node enlargement. Vasculature: The abdominal aorta and IVC are normal. Peritoneum / Retroperitoneum: Unremarkable Bones: Mild degenerative changes of the lumbar spine. CT/Abdomen/Pelvis WITH Contrast IMPRESSION: Hepatic cysts. Status post cholecystectomy. Status post hysterectomy. Sigmoid diverticulosis. Large amount of fecal material is seen in the colon. Reading Location: [id number]
--- OUTSIDE RECORDS SUMMARY | 2025-04-17 06:00 | XMS RPT_ITS | CCD ---
Author Organization [facility] CliniSytn Care Team Providers Care Wall Scraper Name Role Phone RODRICK ROSARIO Unavailable Unavailable RODRICK ROSARIO Unavailable Unavailable Rosendo Brown Unavailable Unavailable RODRICK ROSARIO Unavailable Unavailable RODRICK ROSARIO Unavailable Unavailable Rosendo Brown MD Primary Care Provider Dr. Rosendo Brown Primary Care Provider Dr. Rosendo Brown Referring Provider Dr. Lawrence David Attending Provider Dr. Lawrence David Referring Provider Dr. Lawrence David Other Provider Dr. Rosendo Brown Primary Care Provider Dr. Lawrence David Attending Provider Dr. Rosendo Brown Referring Provider Dr. Rodrigo Paul Attending Provider Rosendo Brown MD Primary Care Provider Rosendo Brown MD Primary Care Provider Rosendo Brown MD Primary Care Provider Dr. Rosendo Brown Primary Care Provider Dr. Trev Leonardo Emergency Provider Dr. Veronica Louise Admit Provider Dr. Veronica Louise Attending Provider Dr. Veronica Louise Other Provider Dr. Cayetano Marie Attending Provider Dr. Rosendo Brown Referring Provider Roof PRODUCT REPRESENTATIVE, PRODUCT REPRESENTATIVE-C Antonio Turner Attending Provider Roof PRODUCT REPRESENTATIVE, PRODUCT REPRESENTATIVE-C Antonio Turner Referring Provider Roof PRODUCT REPRESENTATIVE, PRODUCT REPRESENTATIVE-C Antonio Turner Other Provider Dr. Rosendo Brown Primary Care Provider Dr. Rosendo Brown Referring Provider Dr. Lawrence David Attending Provider SELF Referring Unavailable ROSENDO BROWN Primary Care Unavailable Rosendo Brown MD Primary Care Provider Haagen DISPENSARY TECHNICIAN.VECTOR CONTROL ASSISTANT, Mary Unavailable Suppan DISPENSARY TECHNICIAN.VECTOR CONTROL ASSISTANT, Angelica A Unavailable Suppan DISPENSARY TECHNICIAN.VECTOR CONTROL ASSISTANT, Angelica A Unavailable [phone] Suppan DISPENSARY TECHNICIAN.VECTOR CONTROL ASSISTANT, Angelica A Unavailable Dr. Rosendo Brown MD Primary Care Provider Dr. Rosendo Brown MD Referring Provider Roof PRODUCT REPRESENTATIVE-C, Antonio Turner Attending Provider Roof PRODUCT REPRESENTATIVE-C, Antonio Turner Referring Provider Dr. Cayetano Marie MD Attending Provider Dr. Lawrence David DO Attending Provider Dr. Rosendo Brown MD Primary Care Provider Roof PRODUCT REPRESENTATIVE-C, Antonio Turner Attending Provider Roof PRODUCT REPRESENTATIVE-C, Antonio Turner Referring Provider Dr. Rosendo Brown MD Referring Provider Sandra WILSON, Dr. Casey Emergency Provider Dr. Veronica Louise DO Admit Provider Dr. Veronica Louise DO Attending Provider Dr. Pato Simmons MD Attending Provider Dr. Liat Hale MD Attending Provider Dani BARBER, Dr. Martin Other Provider Troy WILSON, Dr. Whyte Referring Provider Dr. Lawrence David DO Referring Provider Stephanie WILSON, Dr. Sam Primary Care Provider Stephanie WILSON, Dr. Sam Referring Provider Roof PRODUCT REPRESENTATIVE-C, Antonio Turner Attending Provider Roof PRODUCT REPRESENTATIVE-C, Antonio Turner Referring Provider Frankie BARBER, Dr. Bravo Attending Provider Frank WILSON, Dr. Monteiro Attending Provider Frank WILSON, Dr. Monteiro Referring Provider [phone] Anibal WILSON, Harmony Osuna Unavailable Frank WILSON, Cayetano S Unavailable TAYLOR THOMPSON Referring Unavailable STEPHANIE, ROSENDO J Primary Care Unavailable STEPHANIE, ROSENDO J Referring Unavailable STEPHANIE, ROSENDO J Primary Care Unavailable TAYLOR THOMPSON Attending Unavailable STEPHANIE, ROSENDO Whittington Referring Unavailable STEPHANIE, ROSENDO J Primary Care Unavailable STEPHANIE, ROSENDO J Referring Unavailable STEPHANIE, ROSENDO J Primary Care Unavailable STEPHANIE, ROSENDO Whittington Attending Unavailable STEPHANIE, ROSENDO J Primary Care Unavailable STEPHANIE, ROSENDO J Referring Unavailable STEPHANIE, ROSENDO J Primary Care Unavailable STEPHANIE, ROSENDO J Attending Unavailable STEPHANIE, ROSENDO J Primary Care Unavailable STEPHANIE, ROSENDO J Attending Unavailable STEPHANIE, ROSENDO J Primary Care Unavailable STEPHANIE, ROSENDO J Attending Unavailable STEPHANIE, ROSENDO J Primary Care Unavailable STEPHANIE, ROSENDO J Referring Unavailable STEPHANIE, ROSENDO J Primary Care Unavailable STEPHANIE, ROSENDO J Attending Unavailable STEPHANIE, ROSENDO J Primary Care Unavailable Frank, Cayetano Attending Unavailable Frank, aCyetano Referring Unavailable [place], Rosendo Primary Care Unavailable Pato Simmons Attending Unavailable Pato Simmons Referring Unavailable Stephanie, Rosendo Primary Care Unavailable Frank, Cayetano Attending Unavailable [place], Rosendo Primary Care Unavailable Frank, Cayetano Attending Unavailable Stephanie, Rosendo Primary Care Unavailable Roof PRODUCT REPRESENTATIVE, Antonio Turner Referring Unavailable Roof PRODUCT REPRESENTATIVE, Antonio Turner Attending Unavailable Stephanie, Rosendo Primary Care Unavailable Lawrence David Attending Unavailable Lawrence David Referring Unavailable [place], Rosendo Primary Care Unavailable Veronica Louise Attending Unavailable [facility] Primary Care Unavailable Veronica Louise Admitting Unavailable Cayetano Marie Attending Unavailable FrankCayetano downing Referring Unavailable [facility] Primary Care Unavailable Friend, Lawrence Attending Unavailable [facility] Primary Care Unavailable [place], Rosendo Referring Unavailable Friend, Lawrence Attending Unavailable [facility] Primary Care Unavailable [place], Rosendo Referring Unavailable Roof PRODUCT REPRESENTATIVE, Antonio Turner Attending Unavailable [place], Rosendo Referring Unavailable [facility] Primary Care Unavailable Roof PRODUCT REPRESENTATIVE, Antonio Turner Attending Unavailable [facility] Primary Care Unavailable [place], Rosendo Referring Unavailable Friend, Lawrence Attending Unavailable [place], [facility] Primary Care Unavailable [place], Rosendo Referring Unavailable Roof PRODUCT REPRESENTATIVE, Antonio H Referring Unavailable Roof PRODUCT REPRESENTATIVE, Antonio H Attending Unavailable [facility] Primary Care Unavailable Roof PRODUCT REPRESENTATIVE, Antonio H Referring Unavailable Roof PRODUCT REPRESENTATIVE, Antonio Turner Attending Unavailable [facility] Primary Care Unavailable Roof PRODUCT REPRESENTATIVE, Antonio Turner Referring Unavailable Roof PRODUCT REPRESENTATIVE, Antonio Turner Attending Unavailable [facility] Primary Care Unavailable [place], Rosendo Attending Unavailable [facility] Primary Care Unavailable [place], Rosendo Referring Unavailable Veronica Louise Consulting Unavailable Veronica Louise Attending Unavailable [facility] Primary Care Unavailable Veronica Louise Admitting Unavailable GeoffreyLiat houser Attending Unavailable GeoffreyLiat Attending Unavailable [facility] Primary Care Unavailable Cayetano Marie Attending Unavailable [facility] Primary Care Unavailable Roof PRODUCT REPRESENTATIVE, Antonio H Referring Unavailable Roof PRODUCT REPRESENTATIVE, Antonio Turner Attending Unavailable [facility] Primary Care Unavailable Roof PRODUCT REPRESENTATIVE, Antonio Turner Referring Unavailable Roof PRODUCT REPRESENTATIVE, Antonio Turner Attending Unavailable [facility] Primary Care Unavailable Roof PRODUCT REPRESENTATIVE, Antonio Turner Attending Unavailable [facility] Primary Care Unavailable [place], Rosendo Referring Unavailable [place], Rosendo Referring Unavailable Roof PRODUCT REPRESENTATIVE, Antonio Turner Attending Unavailable [facility] Primary Care Unavailable [place], Rosendo Referring Unavailable FriendLawrence Attending Unavailable [facility] Primary Care Unavailable Roof PRODUCT REPRESENTATIVE, Antonio Turner Attending Unavailable [place], Rosendo Referring Unavailable [facility] Primary Care Unavailable Pato Simmons Attending Unavailable [facility] Primary Care Unavailable Roof PRODUCT REPRESENTATIVE, Antonio H Referring Unavailable Roof PRODUCT REPRESENTATIVE, Antonio Turner Attending Unavailable [facility] Primary Care Unavailable Friend, Lawrence Attending Unavailable Friend, Lawrence Referring Unavailable [facility] Primary Care Unavailable Allergies Allergy Classification Reported Allergen(s) Allergy Type Date of Onset Reaction(s) Facility (20 sources) ciprofloxacin; Translations: [CIPROFLOXACIN] Drug Allergy 05-24-20 14 Hives, Other: See Comments [facility] Repository (20 sources) dicyclomine; Translations: [DICYCLOMINE HCL] Drug Allergy 08-13-20 13 Mental Status Change [facility] Repository (20 sources) erythromycin; Translations: [ERYTHROMYCIN] Drug Allergy 09-07-20 05 GI Upset [facility] Repository (20 sources) HYDROmorphone; Translations: [HYDROMORPHONE (BULK)] Drug Allergy 09-07-20 05 Intolerance [facility] Repository (20 sources) Latex; Translations: [LATEX] Propensity to adverse reactions (disorder) 07-26-20 07 Rash [facility] Repository (20 sources) PROCHLORPERAZINE EDISYLATE; Translations: [PROCHLORPERAZINE EDISYLATE] Propensity to adverse reactions (disorder) 09-07-20 05 Intolerance [facility] Repository (18 sources) Ciprofloxacin; Translations: [ciprofloxacin HCl] Drug Allergy 02-25-20 22 Hives [facility] (20 sources) Dicyclomine Drug Allergy 02-25-20 22 Other [facility] Comment on above: MAKES ME FEEL FUNNY DROWSY FOR ENTIRE DAY AFTER 1 DOSE. (20 sources) Erythromycin Drug Allergy 02-25-20 22 Vomiting [facility] (20 sources) HYDROmorphone; Translations: [hydromorphone HCl] Drug Allergy 02-25-20 22 anxiety [facility] (20 sources) Prochlorperazine; Translations: [prochlorperazine maleate] Drug Allergy 02-25-20 22 anxiety [facility] (11 sources) Atropine Drug Allergy 01-18-20 Nausea [facility] (11 sources) Diphenoxylate Drug Allergy 01-18-20 Nausea [facility] (1 source) Atropine Drug Allergy 02-13-20 [facility] Repository (1 source) Dicyclomine Drug Allergy 02-13-20 [facility] Repository (1 source) Diphenoxylate Drug Allergy 02-13-20 [facility] Repository (1 source) Erythromycin Drug Allergy 02-13-20 [facility] Repository Medications Current Medications Medication Drug Class(es) Dates Sig (Normalized) Sig (Original) acetaminophen 500 mg oral tablet (20 sources) Start: 01-25-2024 take 2 tablets by mouth once daily Acetaminophen 500 mg tablet Active 1000 mg PO DAILY January 25, 2024 10:53am pain Start: 05-19-2023 End: 01-25-2024 take 1 tablet by mouth once daily Acetaminophen 500 mg tablet Discontinued 500 mg PO DAILY May 19, 2023 10:57am January 25, 2024 10:59am pain Start: 02-19-2022 End: 05-19-2023 take 2 tablets by mouth once daily Acetaminophen 500 mg Tablet Discontinued 1000 mg PO DAILY February 19, 2022 12:00am May 19, 2023 11:02am pain Start: 02-19-2022 End: 05-19-2023 take 1000 mg by mouth once daily Acetaminophen Discontinued 1000 MG PO DAILY February 19, 2022 12:00am May 19, 2023 11:02am Start: 02-08-2018 End: 11-09-2018 take 2 tablets by mouth every eight hours as needed for pain Acetaminophen 500 MG tablet Discontinued 1000 mg PO EVERY 8 HOURS 60 0 February 08, 2018 12:00am November 09, 2018 3:00pm takes q8h prn for pain Start: 02-08-2018 End: 11-09-2018 take 1000 mg by mouth every eight hours as needed for pain Acetaminophen Discontinued 1000 MG PO EVERY 8 HOURS 60 February 08, 2018 12:00am November 09, 2018 3:00pm takes q8h prn for pain Start: 11-18-2010 take 2 tablets by mo uth every four hours as needed acetaminophen (TYLENOL) 325 mg tablet Take 2 tablets by mouth every 4 hours as needed. FOR PAIN. 0 11/18/2010 Active Comment on above: Take 2 tablets by mo uth every 4 hours as needed. FOR PAIN. amiodarone hydrochloride 200 mg oral tablet (20 sources) Antiarrhythmic Start: 01-20-20 End: 02-19-20 take 1 tablet by mouth once daily amiodarone (PACERONE) 200 mg tablet Take 200 mg by mouth once daily. 01/19/2025 Active apixaban 5 mg oral tablet (20 sources) Factor Xa Inhibitor Start: 02-11-20 End: 11-08-19 take 1 tablet by mouth twice daily ELIQUIS 5 mg tab(s) Take 5 mg by mouth twice daily. 02/10/2023 Active Comment on above: Take 5 mg by mouth t wice daily. ascorbic acid 500 mg oral tablet (20 sources) Vitamin C Start: 03-18-20 take 1 tablet by mouth once daily Ascorbic Acid (Vitamin C) (C-500) 500 mg tablet Active 500 mg PO DAILY March 18, 2023 12:00am Comment on above: Take 500 mg by mouth once daily. aspirin 81 mg chewable tablet (14 sources) Platelet Aggregation Inhibitor, Nonsteroidal Anti-inflammatory Drug Start: 01-22-20 take 81 mg by mouth at breakfast Aspirin Active 81 MG PO WITH BREAKFAST January 21, 2023 12:00am take 1 tablet by mouth once monica y aspirin, enteric coated (ASPIRIN, ENTERIC COATED) 81 mg EC tablet Take 81 mg by mouth once daily. 0 Active Comment on above: Take 81 mg by mouth once daily. atorvastatin 40 mg oral tablet (20 sources) HMG-CoA Reductase Inhibitor Start: End: take 1 tablet by mouth once daily atorvastatin (LIPITOR) 40 mg tablet Indications: Elevated LDL cholesterol level Take 1 tablet by mouth once daily. 90 tablet 1 03/04/2025 08/31/2025 Active Start: 01-21-2023 End: 05-19-2023 take 1 tablet by mouth at bedtime Atorvastatin 80 mg Tablet Discontinued 80 mg PO AT BEDTIME 30 January 21, 2023 12:00am May 19, 2023 10:58am Comment on above: Take 1 tablet by tomas once daily. budesonide 3 mg delayed release oral capsule (20 sources) Corticosteroid Start: take 1 capsule by mouth once daily, then take 3 mg by mouth every twenty-four hours budesonide, enteric coated (ENTOCORT EC) 3 mg 24 hr capsule Take 9 mg by mouth once daily. Friend 01/31/2024 Active Start: 01-31-2024 End: 05-10-2024 take 3 capsules by mouth once daily Budesonide 3 mg capsule,delayed,extend.release Discontinued 9 mg PO DAILY 90 3 January 31, 2024 12:00am May 10, 2024 1:37pm CPAP/BIPAP/OTHER (20 sources) Start: 10-24-2024 End: 03-10-2052 CPAP/BIPAP/OTHER Type .CPAPSettings into a note to see current settings/supplies/DME information. 1 Each 10/24/2024 03/10/2052 Active Cranberry (20 sources) Non-Standardize d Food Allergenic Extract, Non-Standardize d Plant Allergenic Extract Start: 03-18-2023 take 1 capsule by mouth three times daily at mealtime Cranberry 500 mg capsule Active 500 mg PO THREE TIMES A DAY March 18, 2023 12:00am administer with meals Start: 03-18-2023 take 500 mg by mouth three times daily at mealtime Cranberry Active 500 MG PO THREE TIMES A DAY March 18, 2023 12:00am administer with meals take 1 capsule by mo uth three times daily Cranberry 500 mg cap Take 500 mg by mouth three times daily. Active take 1 capsule by mo uth three times daily Cranberry 500 mg cap Take 500 mg by mouth three times daily. 0 Active Comment on above: Take 500 mg by mouth three times daily. empagliflozin 10 mg oral tablet (20 sources) Sodium-Glucose Cotransporter 2 Inhibitor Start: End: take 1 tablet by mouth once daily at breakfast empagliflozin (JARDIANCE) 10 mg tablet Take 10 mg by mouth daily with breakfast. 01/19/2025 Active Estradiol Hemihyd,Micro (Bulk) (3 sources) Start: Estradiol Hemihyd,Micro (Bulk) Active EACH MC May 19, 2023 12:00am furosemide 40 mg oral tablet (20 sources) Loop Diuretic Start: End: take 1 tablet by mouth once daily furosemide (LASIX) 40 mg tablet Take 40 mg by mouth once daily. 01/19/2025 Active Start: 01-19-2025 End: 01-28-2025 take 1 tablet by mouth twice daily Furosemide 40 mg Tablet Discontinued 40 mg PO TWICE DAILY 60 0 January 19, 2025 12:00am January 28, 2025 11:26am Lactobacillus Combination No.9 (Adult 50 Plus Probiotic) 4 billion cell capsule (15 sources) Start: 05-19-2023 take 4 capsules by mouth once daily Lactobacillus Combination No.9 (Adult 50 Plus Probiotic) 4 billion cell capsule Active 4000 NMA PO DAILY May 19, 2023 12:00am administer with a meal Start: 05-19-2023 take 4 capsules by m outh once daily Lactobacillus Combination No.9 (Adult 50 Plus Probiotic) 4 billion cell capsule Active 4000 MMU CELLS PO DAILY May 19, 2023 12:00am administer with a meal loperamide hydrochloride 2 mg oral capsule (20 sources) Opioid Agonist Start: 03-04-2025 take 4 capsules by mouth every twenty-four hours Loperamide 2 mg capsule Active 2 mg PO Q4H as needed for loose stool 90 30 2 March 04, 2025 12:00am administer after each loose stool until symptoms controlled; do not exceed 8 mg per 24 hrs Start: 01-28-2025 take 1 capsule by mo uth once as needed Loperamide 2 mg capsule Active 2 mg PO ONCE as needed for loose stool January 28, 2025 10:21am Start: 01-21-2025 End: 01-28-2025 Loperamide 2 mg capsule Disc ontinued mg PO January 21, 2025 12:00am January 28, 2025 10:22am Start: 01-25-2024 End: 01-17-2025 take 1 tablet by mouth once as needed Loperamide 2 mg tablet Discontinued 2 mg PO ONCE as needed for loose stool 30 5 January 10, 2025 5:53pm January 16, 2025 1:13pm Start: 03-12-2020 loperamide (IM ODIUM) 2 mg cap(s) Indications: Functional bowel disorder Take 3 daily, as needed. 270 capsule 3 03/12/2020 Active Comment on above: Take 3 daily, as nee ded. metoprolol tartrate 50 mg oral tablet (20 sources) beta-Adrenergic Prasanna Start: 02-10-2023 End: 01-19-2025 take 2 tablets by mouth twice daily Metoprolol Tartrate 50 mg tablet Active 100 mg PO TWICE A DAY 180 January 28, 2025 11:26am Start: 02-10-2023 End: 01-28-2025 take 1 tablet by mouth twice daily Metoprolol Tartrate 50 mg tablet Discontinued 50 mg PO TWICE A DAY 180 September 03, 2024 11:02am January 16, 2025 2:06pm Comment on above: Take 50 mg by mouth twice daily. Multivitamin preparation (8 sources) Start: 01-20-2023 take 1 tablet by mouth once daily Multivitamin Active 1 TABLET PO DAILY January 20, 2023 12:00am MULTIVITAMIN TAB (20 sources) Start: 09-07-2005 MULTIVITAMIN TAB Take one(1) tablet daily. 0 09/07/2005 Active Comment on above: Take one(1) tablet d aily. Multivitamin Tablet (12 sources) Start: 01-20-2023 Multivitamin Tablet Active 1 {tbl} PO DAILY January 20, 2023 12:00am health maintenance Start: 01-20-2023 Multivitamin T ablet Active 1 {tbl} PO DAILY January 20, 2023 12:00am Multivitamin,Ft-Cttt-Hmwgakh s (3 sources) Start: 05-14-2014 take 1 tablet by mouth once daily Multivitamin,Vm-Durx-Doxbjoeq Active 1 TABLET PO DAILY May 14, 2014 12:00am nitrofurantoin, macrocrystal s 25 mg / nitrofurantoin, monohydrate 75 mg oral capsule (3 sources) Nitro furan Antib acter ial Start: 11-03-2022 End: 11-10-2022 take 1 capsule by mouth twice daily at mealtime nitrofurantoin monohydrate and macrocrystal (MACROBID) 100 mg capsule Take 1 capsule by mouth twice daily with meals for 7 days. 14 capsule 0 11/03/2022 11/10/2022 Active Start: 10-16-2022 End: 10-21-2022 take 1 capsule by mouth twice daily nitrofurantoin monohydrate and macrocrystal (MACROBID) 100 mg capsule Indications: Recurrent UTI (urinary tract infection) Take 1 capsule by mouth twice daily for 5 days. 10 capsule 0 10/16/2022 10/21/2022 Active Comment on above: Take 1 capsule by mo [facility] twice daily for 5 days. Take 1 capsule by mo ut twice daily with meals for 7 days. nitroglycerin 0.4 mg sublingual tablet (20 sources) Nitrate Vasodilator Start: 018 End: 024 nitroglycerin sublingual (NITROQUICK) 0.4 mg SL tablet Dissolve 1 tablet under the tongue as needed. for chest pain,every 5 min x3 1 Bottle of 25 3 09/22/2017 Active Comment on above: Dissolve 1 tablet un lupillo the tongue as needed. for chest pain,every 5 min x3 ondansetron 4 mg disintegrating oral tablet (20 sources) Serotonin-3 Receptor Antagonist Start: take 2 tablets by mouth every eight hours as needed ondansetron orally disintegrating (ZOFRAN ODT) 4 mg disintegrating tablet Take 8 mg by mouth every 8 hours as needed for nausea/vomiting. 01/19/2025 Active microencapsulated potassium chloride 20 meq extended release oral tablet (20 sources) Start: End: take 1 tablet by mouth twice daily potassium chloride ER (KLOR-CON) 20 mEq tablet Take 20 mEq by mouth two times a day. 01/19/2025 Active sulfacetamide sodium 100 mg/ml ophthalmic solution (11 sources) Sulfonamide Antibacterial Start: take 1-2 drop(s) into the eye(s) at bedtime sulfacetamide (BLEPH-10) 10 % ophthalmic solution Indications: Hordeolum externum of right upper eyelid Use 1-2 drops in eyes as directed. INSIDE LOWER EYELID(S) 1-4 TIMES DAILY AND AT BEDTIME 15 mL 01/25/2025 Active Testosterone Micronized (Bulk) (3 sources) Start: 023 Testosterone Micronized (Bulk) Active EACH MC May 19, 2023 12:00am ubrogepant 100 mg oral tablet (15 sources) Start: 024 Ubrogepant (Ubrelvy) 100 mg tablet Active mg PO .0prn as needed for headache January 25, 2024 12:00am Start: 11-11-2023 End: 12-11-2023 take 1 tablet by mouth once daily ubrogepant (UBRELVY) 100 mg tablet Take 1 tablet by mouth as directed. Take 1 tablet PO as needed for acute treatment of migraine. May repeat second dose after 2 hours if incomplete response. Do not exceed 200 mg daily 10 tablet 5 11/11/2023 12/11/2023 Active Comment on above: Take 1 tablet by tomas th as directed. Take 1 tablet PO as needed for acute treatment of migraine. May repeat second dose after 2 hours if incomplete response. Do not exceed 200 mg daily zinc sulfate 25 mg oral tablet (11 sources) take 25 mg by mouth once daily zinc sulfate (ZINC-15 ORAL) Take 25 mg by mouth once daily. Active Completed/Discontinued Medications Medication Drug Class(es) Dates Sig (Normalized) Sig (Original) [id number] 200 actuat albuterol 0.09 mg/actuat metered dose inhaler (20 sources) beta2-Adrenergic Agonist Start: 04-04-2024 End: 01-25-2025 take 2 puff(s) by inhalation every four hours as needed for wheezing albuterol HFA (VENTOLIN HFA) 90 mcg/actuation inhaler Indications: Cough, unspecified type , Wheezing Inhale 2 Puffs as instructed every 4 hours as needed for wheezing/shortnes s of breath. 1 Each 1 04/04/2024 01/25/2025 Discontinued atenolol 50 mg oral tablet (20 sources) beta-Adrenergic Prasanna Start: 06-16-2013 End: 03-04-2023 take 1 tablet by mouth once daily Atenolol 50 MG tablet Discontinued 50 mg PO DAILY June 16, 2013 12:00am February 10, 2023 9:04am blood pressure Comment on above: Take 1 tablet by tomas once daily. atropine sulfate 0.025 mg / diphenoxylate hydrochloride 2.5 mg oral tablet (11 sources) Anticholinergic, Cholinergic Muscarinic Antagonist, Antidiarrheal Start: 11-29-2024 End: 01-16-2025 Diphenoxylate-Atr opine (Lomotil) 2.5-0.025 mg tablet Discontinued 1 {tbl} PO THREE TIMES A DAY 90 November 29, 2024 12:00am January 16, 2025 1:12pm betamethasone 0.5 mg/ml / clotrimazole 10 mg/ml topical cream (20 sources) Azole Antifungal, Corticosteroid Start: 01-20-2023 End: 01-25-2025 clotrimazole-beta methasone (LOTRISONE) cream Apply 1 application to affected area twice daily. 15 g 2 01/20/2023 01/25/2025 Discontinued Comment on above: Apply 1 application to affected area twice daily. caffeine 200 mg oral tablet (20 sources) Central Nervous System Stimulant, Methylxanthine Start: 03-18-2023 End: 11-28-2024 Caffeine 200 mg tablet Discontinued 100 mg PO DAILY March 18, 2023 12:00am November 28, 2024 11:55am Start: 03-18-2023 take 100 mg by mouth once monica y Caffeine Active 100 MG PO DAILY March 18, 2023 12:00am take 0.5 tablet by m outh once daily CAFFEINE ORAL Take 0.5 tablets by mouth once daily. Active take 0.5 tablet by m outh once daily CAFFEINE ORAL Take 0.5 tablets by mouth once daily. 0 Active take 0.25 tablet by mouth once daily CAFFEINE ORAL Take 0.25 tablets by mouth once daily. 0 Active Comment on above: Take 0.25 tablets by mouth once daily. cephalexin 250 mg oral capsule (20 sources) Cephalosporin Antibacterial Start: End: take 1 capsule by mouth once daily at bedtime cephALEXin (KEFLEX) 250 mg capsule Take 250 mg by mouth daily at bedtime. Dr Ayala 10/12/2023 01/25/2025 Discontinued Start: 03-24-2023 End: 05-19-2023 take 1 capsule by mouth every twelve hours Cephalexin 500 mg capsule Discontinued 500 mg PO EVERY 12 HOURS 6 3 0 March 24, 2023 12:00am May 19, 2023 11:00am post-operative Start: 03-04-2023 End: 03-11-2023 take 10 mL by mouth three times daily cephALEXin (KEFLEX) 250 mg/5 mL suspension Indications: Urinary frequency Take 10 mL by mouth three times daily for 7 days. 210 mL 0 03/04/2023 03/11/2023 Active Start: 02-13-2023 End: 02-20-2023 take 500 mg by mouth twice daily Cephalexin Active 500 MG PO TWICE A DAY February 15, 2023 12:00am Start: 01-02-2023 End: 01-09-2023 take 1 capsule by mouth twice daily cephALEXin (KEFLEX) 500 mg capsule Take 1 capsule by mouth twice daily for 7 days. 14 capsule 0 01/02/2023 01/09/2023 Active Comment on above: Take 1 capsule by mo uth twice daily for 7 days. Take 10 mL by mouth three times daily for 7 days. Take 250 mg by mouth daily at bedtime. cholecalciferol 0.025 mg oral capsule (20 sources) Vitamin D Start: End: take 1 capsule by mouth once daily Cholecalciferol (Vitamin D3) 1,000 UNIT capsule Discontinued 1000 U PO DAILY July 06, 2018 12:00am May 09, 2019 11:06am supplement Cholestyramine Resin (20 sources) Bile Acid Sequestrant Start: End: take 1 dose by mouth twice daily Cholestyramine (With Sugar) 4 gram powder Discontinued 4 g PO TWICE A DAY 378 3 November 09, 2024 1:00am January 16, 2025 1:10pm administer w/meal; avoid other meds within 1hr before or 4-6hr after dose Start: 11-09-2024 End: 01-16-2025 take 1 dose by mouth twice daily Cholestyramine (With Sugar) 4 gram powder Discontinued 4 g PO TWICE A DAY 378 November 09, 2024 1:00am January 16, 2025 1:10pm administer w/meal; avoid other meds within 1hr before or 4-6hr after dose Start: 11-09-2024 take 1 dose by mouth twice daily Cholestyramine (With Sugar) 4 gram powder Active 4 g PO TWICE A DAY 378 November 09, 2024 1:00am administer w/meal; avoid other meds within 1hr before or 4-6hr after dose Start: 10-25-2018 End: 11-09-2018 Cholestyramine (With Sugar) (Questran) 4 gram powder Discontinued 4 g PO TWICE A DAY October 25, 2018 1:00am November 09, 2018 2:59pm Start: 07-07-2018 End: 07-10-2018 take 4 g by mouth twice daily as needed for diarrhea Cholestyramine-Aspartame (Cholestyramine Light Packet) 4 GM Powd.Pack Discontinued 4 g PO TWICE DAILY NEEDED as needed for Diarrhea 4 0 July 07, 2018 8:03am July 10, 2018 12:37pm clopidogrel 75 mg oral tablet (20 sources) [id number] Platelet Inhibitor Start: 01-21-2023 End: 02-10-2023 take 1 tablet by mouth once daily Clopidogrel 75 mg Tablet Discontinued 75 mg PO DAILY 21 January 21, 2023 12:00am February 10, 2023 9:03am colestipol hydrochloride 1000 mg oral tablet (20 sources) Bile Acid Sequestrant Start: 01-23-2024 End: 01-25-2025 Colestipol 1 gram tablet Discontinued 2 g PO daily 60 3 November 05, 2024 9:39am November 28, 2024 11:53am Start: 05-09-2019 End: 03-26-2020 Colestipol 1 gram tablet Dis continued 1 g PO TWICE A DAY May 09, 2019 12:00am March 26, 2020 11:38am doxycycline hyclate 100 mg oral capsule (15 sources) Tetracycline-class Drug Start: 11-18-2023 End: 11-09-2024 take 1 capsule by mouth twice daily Doxycycline Hyclate 100 mg capsule Discontinued 100 mg PO TWICE A DAY 20 0 November 18, 2023 1:00am November 09, 2024 11:27am escitalopram 5 mg oral tablet (20 sources) Serotonin Reuptake Inhibitor Start: 05-10-2024 End: 01-21-2025 take 1 tablet by mouth once daily Escitalopram Oxalate (Lexapro) 5 mg tablet Discontinued 5 mg PO DAILY May 10, 2024 12:00am January 21, 2025 12:59pm Start: 07-02-2016 End: 03-18-2025 take 1 tablet by mouth once daily Escitalopram Oxalate 10 mg tablet Discontinued 10 mg PO DAILY May 09, 2019 11:06am January 25, 2024 10:54am ANTIDEPRESSANT Comment on above: Take 1 tablet by tomas th once daily. Estradiol (20 sources) Estrogen Start: 01-25-2024 End: 11-09-2024 Estradiol 0.01 % (0.1 mg/gram) cream Discontinued VAGINAL January 25, 2024 12:00am November 09, 2024 11:28am Start: 01-19-2023 End: 01-25-2025 estradiol (ESTRACE) 0.01 % ( 0.1 mg/gram) vaginal cream Indications: Postmenopausal atrophic vaginitis Use 1 g vaginally as directed. Insert 1 gram vaginally at bedtime every night for 14 nights then 1 gm vaginally twice a week. 42.5 g 10 01/19/2023 01/25/2025 Discontinued Comment on above: Use 1 g vaginally as directed. Insert 1 gram vaginally at bedtime every night for 14 nights then 1 gm vaginally twice a week. Estradiol Hemihyd,Micro (Bulk) 100 % powder (12 sources) Start: 3 End: 4 Estradiol Hemihyd,Micro (Bulk) 100 % powder Discontinued NMA MC May 19, 2023 12:00am January 25, 2024 10:55am gabapentin 300 mg oral capsule (20 sources) Anti-epileptic Agent Start: 9 End: 9 take 1 capsule by mouth once daily Gabapentin 300 mg capsule Discontinued 300 mg PO DAILY October 25, 2018 1:00am November 09, 2018 3:00pm Qjvwawqp-Yzaj-Lxk1-C -Reji-Bosw (18 sources) Start: 3 End: 3 take 1 tablet by mouth once daily Gkpkqnsy-Eeaj-Zot8-C- Reji-Bosw Discontinued 1 TABLET PO DAILY February 15, 2023 1:14pm May 19, 2023 11:01am Start: 02-15-2023 take 1 tablet by tomas once daily Weibwyzk-Ioce-Yqe4-C-Reji-Bosw Active 1 TABLET PO DAILY February 15, 2023 1:14pm Start: 07-02-2016 End: 02-15-2023 Jrokptvn-Zqpc-Rwh0-C-Reji-Jignesh sw Discontinued 1 EACH PO DAILY July 02, 2016 12:00am February 15, 2023 1:16pm Start: 07-02-2016 Glucosam-Yemi- Fwt7-F-Ndrb-Bosw Active 1 EACH PO DAILY July 02, 2016 12:00am Xasfgtwr-Szux-Oxh1-C-Reji-Jignesh sw 1 EACH tablet (12 sources) Start: 07-02-2016 End: 02-15-2023 take 1 tablet by mouth once daily Hwxnyqjf-Hwej-Cvr8-C-Reji-Bosw 1 EACH tablet Discontinued 1 NMA PO DAILY July 02, 2016 12:00am February 15, 2023 1:16pm SUPPLEMENT Start: 07-02-2016 End: 02-15-2023 take 1 tablet by mouth once daily Qprvadxi-Ohyz-Bot2-C-Reji-Bosw 1 EACH ta blet Discontinued 1 NMA PO DAILY July 02, 2016 12:00am February 15, 2023 1:16pm Zvgavpub-Csqz-Zvm8-C-Reji-Jignesh sw 750-625-30 mg tablet (12 sources) Start: 02-15-2023 End: 05-19-2023 Ptpqbadi-Gkci-Zyu8-C-Reji-Jignesh sw 750-625-30 mg tablet Discontinued 1 {tbl} PO DAILY February 15, 2023 1:14pm May 19, 2023 11:01am SUPPLEMENT Start: 02-15-2023 End: 05-19-2023 Rwcoocfb-Beqp-Qif5-C-Reji-Jignesh sw 750-625-30 mg tablet Discontinued 1 {tbl} PO DAILY February 15, 2023 1:14pm May 19, 2023 11:01am heybleig-wlhwmsf-htty 149-hyal(GLUCOSAMINE CHONDROITIN COMPLEX ADVANCED [id number]-1.65MG TAB) (20 sources) Start: 08-07-2008 End: 10-31-2023 oavhepwt-qdbpvxc-fzqu 149-hyal(GLUCOSAMINE CHONDROITIN COMPLEX ADVANCED [id number]-1.65MG TAB) one tablet daily 0 08/07/2008 10/31/2023 Discontinued Start: 08-07-2008 glucosam-chond ro-herb 149-hyal(GLUCOSAMINE CHONDROITIN COMPLEX ADVANCED [id number]-1.65MG TAB) one tablet daily 0 08/07/2008 Active Comment on above: one tablet daily hydrOXYzine hydrochloride 25 mg oral tablet (20 sources) Antihistamine Start: 9 End: 9 take 1 tablet by mouth three to four times daily as needed Hydroxyzine Hcl 25 mg tablet Discontinued 25 mg PO 3 to 4 times per day as needed October 25, 2018 1:00am November 09, 2018 3:00pm lactobacillus acidophilus [id number] unt / pectin 100 mg oral tablet (20 sources) Start: 8 End: 9 take 1 tablet by mouth four times daily Acidophilus-Pectin, Norton 1 TABLET tablet Discontinued 1 {tbl} PO 4 TIMES DAILY July 07, 2018 12:00am October 25, 2018 12:20pm intestinal health Start: 07-07-2018 End: 10-25-2018 take 1 tablet by mouth four times daily Acidophilus-Pectin, Norton Discontinued 1 TABLET PO 4 TIMES DAILY July 07, 2018 12:00am October 25, 2018 12:20pm intestinal health lisinopril 5 mg oral tablet (10 sources) Angiotensin Converting Enzyme Inhibitor Start: 01-19-2025 End: 01-21-2025 take 1 tablet by mouth twice daily Lisinopril 5 mg Tablet Discontinued 5 mg PO TWICE A DAY 30 0 January 19, 2025 12:00am January 21, 2025 1:34pm metroNIDAZOLE 500 mg oral tablet (20 sources) Nitroimidazole Antimicrobial Start: 07-10-2018 End: 10-25-2018 take 1 tablet by mouth three times daily at mealtime Metronidazole 500 MG tablet Discontinued 500 mg PO 3 TIMES DAILY WITH MEALS 18 0 July 10, 2018 12:00am October 25, 2018 12:20pm omeprazole 20 mg delayed release oral capsule (20 sources) Proton Pump Inhibitor Start: 05-09-2019 End: 01-25-2025 take 1 capsule by mouth once daily Omeprazole 20 mg capsule,delayed release(DR/EC) Discontinued 20 mg PO DAILY May 09, 2019 12:00am May 10, 2024 1:38pm acid reflux Start: 07-06-2018 End: 11-09-2018 take 1 capsule by mouth once daily Omeprazole 20 MG capsule Discontinued 20 mg PO DAILY July 06, 2018 12:00am November 09, 2018 3:00pm gerd Comment on above: Take 1 capsule by [place] daily before breakfast. 1/2 hr before meal. phenazopyridine hydrochloride 100 mg oral tablet (20 sources) Start: 03-18-20 End: 05-19-20 take 1 tablet by mouth once daily Phenazopyridine 100 mg tablet Discontinued 100 mg PO DAILY March 18, 2023 12:00am May 19, 2023 11:01am BLADDER HEALTH Start: 11-09-2018 End: 10-31-2023 take 95 mg by mouth once daily Phenazopyridine Active 95 MG PO DAILY November 09, 2018 1:00am Start: 05-14-2014 End: 10-25-2018 take 2 tablets by mouth once daily Phenazopyridine 100 MG tablet Discontinued 200 mg PO DAILY May 14, 2014 12:00am October 25, 2018 12:20pm URINARY Start: 05-14-2014 End: 10-25-2018 take 200 mg by mouth once daily Phenazopyridine Discontinued 200 MG PO DAILY May 14, 2014 12:00am October 25, 2018 12:20pm Comment on above: Take 1 tablet by tomas th once daily. predniSONE 20 mg oral tablet (3 sources) Start: 04-04-2024 End: 04-09-2024 take 1 tablet by mouth once daily at mealtime predniSONE (DELTASONE) 20 mg tablet Indications: Cough, unspecified type , Wheezing Take 1 tablet by mouth once daily for 5 days. Take daily with food. 5 tablet 04/04/2024 04/09/2024 pumpkin seed extract-soy germ (AZO BLADDER CONTROL) 300 mg cap (14 sources) End: 10-31-2023 pumpkin seed extract-soy germ (AZO BLADDER CONTROL) 300 mg cap Take by mouth. 10/31/2023 Discontinued End: 10-31-2023 pumpkin seed extract-soy vikram m (AZO BLADDER CONTROL) 300 mg cap Take by mouth. 0 10/31/2023 Discontinued pumpkin seed ext ract-soy germ (AZO BLADDER CONTROL) 300 mg cap Take by mouth. 0 Active Comment on above: Take by mouth. rimegepant 75 mg disintegrating oral tablet (3 sources) Start: 10-12-19 End: 11-11-19 take 1 tablet by mouth once daily as needed rimegepant (NURTEC ODT) 75 mg disintegrating tablet Take 1 tablet by mouth once daily as needed. 8 tablet 2 10/12/2023 11/11/2023 Discontinued Comment on above: Take 1 tablet by tomas th once daily as needed. sertraline 50 mg oral tablet (17 sources) Serotonin Reuptake Inhibitor Start: 02-10-20 End: 02-10-20 take 0.5 tablet by mouth once daily sertraline (ZOLOFT) 50 mg tablet Indications: Anxiety with depression , Situational anxiety Take 0.5 tablets by mouth once daily. 45 tablet 2 02/10/2024 03/14/2024 Discontinued Start: 01-13-2024 End: 01-12-2025 take 1 tablet by mouth once daily Sertraline 50 mg tablet Discontinued 50 mg PO daily January 25, 2024 12:00am May 10, 2024 1:40pm simethicone 80 mg chewable tablet (20 sources) Start: 01-25-2024 End: 02-12-2025 take 1 tablet by mouth twice daily Simethicone (Gas Relief (Simethicone)) 80 mg tablet,chewable Discontinued 80 mg PO TWICE A DAY January 25, 2024 12:00am February 12, 2025 8:49am Start: 11-18-2023 End: 01-25-2024 Simethicone (Gas-X) 62.5 mg strip Discontinued 2 NMA PO 1 to 2 times per day as needed November 18, 2023 1:00am January 25, 2024 10:57am sucralfate 1000 mg oral tablet (20 sources) Aluminum Complex Start: 07-10-2018 End: 10-25-2018 take 1 tablet by mouth 1 hour(s) before mealtime Sucralfate 1 GM tablet Discontinued 1 g PO ONE HOURS BEFORE MEALS & BED 24 0 July 10, 2018 12:00am October 25, 2018 12:20pm SUMAtriptan 100 mg oral tablet (20 sources) Serotonin-1b and Serotonin-1d Receptor Agonist Start: 07-02-2016 End: 01-25-2024 Sumatriptan Succinate 100 MG tablet Discontinued 100 mg PO .X1 PRN as needed for Migraine Symptoms July 02, 2016 12:00am January 25, 2024 10:57am Comment on above: TAKE 1 TABLET NEE DED FOR MIGRAINE HEADACHE (SEE ADMINISTRATION INSTRUCTIONS). LIMIT 2 DOSES IN 24 HOURS. Testosterone Micronized (Bulk) 100 % powder (12 sources) Start: 05-19-2023 End: 01-25-2024 Testosterone Micronized (Bulk) 100 % powder Discontinued NMA MC May 19, 2023 12:00am January 25, 2024 10:57am ursodiol 300 mg oral capsule (20 sources) Bile Acid Start: 05-10-2024 End: 11-28-2024 take 1 capsule by mouth once daily Ursodiol 300 mg capsule Discontinued 300 mg PO DAILY May 10, 2024 12:00am November 28, 2024 11:53am Start: 12-20-2023 End: 10-24-2024 take 1 capsule by mouth twice daily Ursodiol 300 mg capsule Discontinued 300 mg PO TWICE A DAY 60 11 December 20, 2023 12:00am January 25, 2024 10:58am vitamin b12 1 mg oral capsule (20 sources) Vitamin B12 Start: 10-25-2018 End: 11-09-2018 take 1 capsule by mouth once daily Cyanocobalamin (Vitamin B-12) 1,000 mcg capsule Discontinued 1000 ug PO DAILY October 25, 2018 1:00am November 09, 2018 2:59pm wheat dextrin 3000 mg powder for oral solution (20 sources) Start: 07-06-2018 End: 10-25-2018 Wheat Dextrin 1 EACH powder in packet Discontinued 1 NMA PO AT BEDTIME July 06, 2018 12:00am October 25, 2018 12:20pm loose stool Start: 07-06-2018 End: 10-25-2018 Wheat Dextrin Discontinued 1 EACH PO AT BEDTIME July 06, 2018 12:00am October 25, 2018 12:20pm zinc acetate 25 mg oral capsule (20 sources) Start: 04-05-2022 End: 11-28-2024 take 1 capsule by mouth once daily Zinc Acetate 25 mg (zinc) capsule Discontinued 25 mg PO DAILY April 05, 2022 12:00am November 28, 2024 11:56am supplement Problems Active Problems Problem Classification Problem Date Documented Da te Episodic/Chronic Adjustment disorders (4 sources) Adjustment disorder with mixed anxiety and depressed mood; Translations: [Adjustment disorder with mixed anxiety and depressed mood] Chronic Anxiety disorders (20 sources) Anxiety; Translations: [Anxiety disorder, unspecified] Onset: 04-27-2022 Chronic Cardiac dysrhythmias (20 sources) Ventricular arrhythmia; Translations: [Ventricular premature depolarization] Onset: 04-27-2022 Chronic Congestive heart failure; nonhypertensive (20 sources) Chronic diastolic heart failure; Translations: [Chronic diastolic (congestive) heart failure] Onset: 11-21-2017 Chronic Deficiency and other anemia (2 sources) Anemia; Translations: [Anemia, unspecified] 01-14-2025 Episodic Deficiency and other anemia (1 source) Anemia, unspecified; Translations: [Anemia, unspecified type] Onset: 01-25-2025 Episodic Delirium, dementia, and amnestic and other cognitive disorders (2 sources) Mild cognitive disorder ; Translations: [Unspecified mental disorder due to known physiological condition] Onset: 02-25-2025 02-25-2025 Chronic Developmental disorders (1 source) Word finding difficulty 10-24-2024 Chronic Disorders of lipid metabolism (20 sources) Mixed hyperlipidemia; Translations: [Mixed hyperlipidemia] Onset: 10-02-2024 Chronic Diverticulosis and diverticulitis (20 sources) Diverticula of intestine; Translations: [Diverticulosis of large intestine without perforation or abscess without bleeding] Onset: 04-27-2022 04-27-2022 Chronic Esophageal disorders (20 sources) Esophagitis; Translations: [Esophagitis, unspecified] Onset: 02-09-2012 02-09-2012 Episodic Gastrointestinal hemorrhage (5 sources) Hematochezia; Translations: [Melena] Onset: 02-08-2025 02-05-2025 Episodic Headache; including migraine (20 sources) Migraine; Translations: [Migraine, unspecified, not intractable, without status migrainosus] 05-22-2013 Chronic Heart valve disorders (20 sources) Rheumatic mitral valve disease, unspecified; Translations: [Mitral valve disorders] Onset: 08-02-2017 09-07-2021 Chronic Immunizations and screening for infectious disease (1 source) Viral screening status; Translations: [Encounter for screening for other viral diseases] Episodic Inflammation; infection of eye (except that caused by tuberculosis or sexually transmitteddisease) (3 sources) Hordeolum externum of upper eyelid of right eye; Translations: [Hordeolum externum right upper eyelid] Onset: 01-25-2025 01-25-2025 Episodic Menopausal disorders (1 source) Atrophic vaginitis; Translations: [Postmenopausal atrophic vaginitis] Chronic Mood disorders (20 sources) Depressive disorder; Translations: [Other specified depressive episodes] 12-13-2005 Chronic Nausea and vomiting (20 sources) Nausea; Translations: [Nausea] Onset: 08-02-2017 Resolved: 04-27-2022 04-27-2022 Episodic Nonmalignant breast conditions (20 sources) Fibrocystic disease of breast; Translations: [Diffuse cystic mastopathy of unspecified breast] Onset: 04-12-2006 04-12-2006 Chronic Osteoarthritis (20 sources) Arthritis; Translations: [Unspecified osteoarthritis, unspecified site] 05-22-2013 Chronic Other and unspecified benign neoplasm (1 source) Venous hemangioma; Translations: [Hemangioma unspecified site] Episodic Other connective tissue disease (2 sources) Pain in left lower limb; Translations: [Pain in left leg] Episodic Other connective tissue disease (20 sources) Fibromyalgia; Translations: [Fibromyalgia] 05-22-2013 Episodic Other connective tissue disease (2 sources) Pain in left foot; Translations: [Pain in left foot] Episodic Other connective tissue disease (5 sources) Weakness of hand; Translations: [Other symptoms and signs involving the musculoskeletal system] 01-20-2023 Episodic Other connective tissue disease (5 sources) Other symptoms and signs involving the musculoskeletal system; Translations: [Muscle weakness (generalized)] 01-20-2023 Episodic Other connective tissue disease (15 sources) Weakness of right hand; Translations: [Other symptoms and signs involving the musculoskeletal system] 01-29-2023 Episodic Other female genital disorders (1 source) Burning sensation of vagina; Translations: [Unspecified condition associated with female genital organs and menstrual cycle] Episodic Other gastrointestinal disorders (20 sources) Irritable bowel syndrome; Translations: [Irritable bowel syndrome without diarrhea] 09-07-2021 Chronic Other gastrointestinal disorders (20 sources) Celiac disease; Translations: [Celiac disease] Onset: 04-27-2022 Chronic Other gastrointestinal disorders (8 sources) Celiac disease; Translations: [Celiac disease] Onset: 04-27-2022 Chronic Other gastrointestinal disorders (5 sources) Irritable bowel syndrome with diarrhea; Translations: [Irritable bowel syndrome with diarrhea] 10-31-2023 Chronic Other gastrointestinal disorders (1 source) Irritable bowel syndrome with diarrhea; Translations: [Irritable bowel syndrome with diarrhea] Onset: 09-07-2021 Chronic Other gastrointestinal disorders (2 sources) Diarrhea, unspecified; Translations: [Diarrhea] Onset: 01-11-2025 Episodic Other gastrointestinal disorders (1 source) Other fecal abnormalities; Translations: [Other fecal abnormalities] Onset: 04-15-2025 Episodic Other hereditary and degenerative nervous system conditions (2 sources) Impaired cognition; Translations: [Mild cognitive impairment, so stated] 10-24-2024 Chronic Other hereditary and degenerative nervous system conditions (1 source) Mild cognitive impairment, so stated; Translations: [Cognitive impairment, mild, so stated] Onset: 03-28-2025 Chronic Other liver diseases (13 sources) Primary biliary cholangitis; 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] 12-20-2023 Chronic Other lower respiratory disease (20 sources) Pulmonary edema; Translations: [Chronic pulmonary edema] 01-17-2025 Chronic Other lower respiratory disease (1 source) Chronic pulmonary edema; Translations: [Chronic pulmonary edema] Onset: 02-11-2025 Chronic Other lower respiratory disease (2 sources) Cough; Translations: [Cough, unspecified type] 04-04-2024 Episodic Other lower respiratory disease (2 sources) Wheezing; Translations: [Wheezing] 04-04-2024 Episodic Other lower respiratory disease (20 sources) Dyspnea on exertion; Translations: [Other forms of dyspnea] 07-26-2024 Episodic Other lower respiratory disease (20 sources) Respiratory insufficiency; Translations: [Other abnormalities of breathing] 01-17-2025 Episodic Other lower respiratory disease (2 sources) Other forms of dyspnea; Translations: [Other forms of dyspnea] Onset: 02-11-2025 Episodic Other lower respiratory disease (1 source) Shortness of breath; Translations: [Shortness of breath] Onset: 02-11-2025 Episodic Other nervous system disorders (20 sources) Dysarthria; Translations: [Dysarthria and anarthria] 01-20-2023 Episodic Other nervous system disorders (5 sources) Dysarthria and anarthria; Translations: [Dysarthria] 01-20-2023 Episodic Other nervous system disorders (3 sources) Impaired cognition 10-24-2024 Episodic Other nervous system disorders (1 source) Word finding difficulty ; Translations: [Other speech disturbances] 10-24-2024 Episodic Other non-traumatic joint disorders (1 source) Pain in right shoulder; Translations: [Pain in joint, shoulder region] 10-10-2023 Episodic Other nutritional; endocrine; and metabolic disorders (2 sources) Obesity; Translations: [Obesity, unspecified] Chronic Other nutritional; endocrine; and metabolic disorders (13 sources) Severe obesity; Translations: [Class 2 severe obesity due to excess calories with serious comorbidity and body mass index (BMI) of 37.0 to 37.9 in adult ([facility])] Onset: 01-25-2025 01-25-2025 Chronic Other nutritional; endocrine; and metabolic disorders (1 source) Morbid (severe) obesity due to excess calories; Translations: [Class 2 severe obesity due to excess calories with serious comorbidity and body mass index (BMI) of 37.0 to 37.9 in adult ([facility])] Onset: 01-25-2025 Chronic Other nutritional; endocrine; and metabolic disorders (2 sources) Body mass index (BMI) 37.0-37.9, adult; Translations: [Class 2 severe obesity due to excess calories with serious comorbidity and body mass index (BMI) of 37.0 to 37.9 in adult (HCC)] Onset: 10-02-2024 Chronic Other upper respiratory disease (20 sources) Seasonal allergy; Translations: [Other seasonal allergic rhinitis] 05-22-2013 Chronic Prolapse of female genital organs (2 sources) Midline cystocele; Translations: [Cystocele, midline] Chronic Residual codes; unclassified (19 sources) Hypersomnia; Translations: [Hypersomnia, unspecified] 02-15-2023 Chronic Residual codes; unclassified (4 sources) Hypersomnia, unspecified; Translations: [Hypersomnia, unspecified] 02-15-2023 Chronic Residual codes; unclassified (2 sources) Behavior finding; Translations: [Other sleep apnea] Chronic Residual codes; unclassified (2 sources) Obstructive sleep apnea syndrome; Translations: [Obstructive sleep apnea (adult) (pediatric)] 10-14-2023 Chronic Residual codes; unclassified (1 source) Other sleep apnea; Translations: [Sleep apnea-like behavior] Onset: 11-21-2023 Chronic Residual codes; unclassified (1 source) Obstructive sleep apnea (adult) (pediatric); Translations: [SARAH (obstructive sleep apnea)] Onset: 11-21-2023 Chronic Residual codes; unclassified (1 source) Sleep apnea; Translations: [Sleep apnea, unspecified] 10-24-2024 Chronic Residual codes; unclassified (1 source) Postmenopausal state; Translations: [Asymptomatic menopausal state] Episodic Residual codes; unclassified (3 sources) Memory impairment; Translations: [Other amnesia] 10-02-2024 Episodic Residual codes; unclassified (20 sources) Amnesia; Translations: [Other amnesia] 01-17-2025 Episodic Residual codes; unclassified (4 sources) Other amnesia; Translations: [Memory impairment] Onset: 10-02-2024 Episodic Spondylosis; intervertebral disc disorders; other back problems (20 sources) Backache; Translations: [Dorsalgia, unspecified] 05-22-2013 Episodic Transient cerebral ischemia (4 sources) Transient cerebral ischemia; Translations: [Transient cerebral ischemic attack, unspecified] Chronic Unclassified (1 source) Unknown / UNK(Unknown) Onset: 12-20-2017 Unclassified (10 sources) as scheduled Unclassified (4 sources) Patient encounter status 04-01-2025 Unclassified (1 source) Class 2 severe obesity due to excess calories with serious comorbidity and body mass index (BMI) of 37.0 to 37.9 in adult ([facility]); Translations: [Class 2 severe obesity due to excess calories with serious comorbidity and body mass index (BMI) of 37.0 to 37.9 in adult ([facility])] Onset: 01-25-2025 Unclassified (1 source) Class 2 obesity with body mass index (BMI) of 37.0 to 37.9 in adult, unspecified obesity type, unspecified whether serious comorbidity present; Translations: [Class 2 obesity with body mass index (BMI) of 37.0 to 37.9 in adult, unspecified obesity type, unspecified whether serious comorbidity present] Onset: 10-02-2024 Unclassified (1 source) Cough, unspecified type; Translations: [Cough, unspecified type] Onset: 04-04-2024 Unclassified (1 source) Other ventricular tachycardia; Translations: [Other ventricular tachycardia] Onset: 01-21-2025 Urinary tract infections (20 sources) Recurrent urinary tract infection; Translations: [Urinary tract infection, site not specified]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 Moderately severe (3+) eccentric mitral valve insufficiency. Ordering Physician: Antonio San Referring Physician: Cayetano Marie MD Performed By: Tosin Smith RDCS 03/13/25 1258 Date Cayetano Marie MD CC: BRADFORD San; Dr. Cayetano Marie MD; Dr. Rosendo Brown MD Date Dictated: 03/13/25901 Date Transcribed: 03/13/25 125 Grid Inspector: Signed Chloe [facility] Transesophageal echocardiogr am reportOrdered By: Cayetano Marie on 03-13-2025 Study report [facility] [address] [place] [address] Echo Transesophageal (JOSH) 03/13/25 09 MR#: [id number] Acct: [id number] Name: SAHARA MELÉNDEZ Rep #:[id number] : 1945 79 From: Cayetano Wallis Attending Dr: MD Brittani Mayer: [place] [facility] [place]: Antonio San NP PRODUCT REPRESENTATIVE-C Date: 03/13/25 Location: [facility] Sex: F C Admitted: Reason For Study Reason For Study: MITRAL VALVE PROLAPSE Medication JOSH probe 6VT-D (SN [id number]) passed without difficulty. No complications were noted. Cetacaine Topical Koppel given X3 orally. Versed 2 mg given slow IVP. Fentanyl 50 mcg given slow IVP. Performed a rapid injection of agitated mix of 9 cc saline and 1cc air to assess for atrial septal defect. Left Ventricle Normal LV size. The left ventricular ejection fraction is 60 %. No regional wallmotion abnormalities noted. Right Ventricle Normal RV size. Normal systolic function. Atria Bubble contrast study is negative for PFO/ASD. The left atrium is moderately enlarged. No thrombus is detected in the left atrial appendage. Normal right atrium. Mitral Valve Moderate mitral valve prolapse, bileaflet. Moderately severe (3+) eccentric mitral valve insufficiency. Tricuspid Valve Normal tricuspid valve. Aortic Valve Trisinus/trileaflet aortic valve. Pulmonic Valve Normal pulmonic valve. Vessels Normal aortic root. Normal ascending aorta. The pulmonary artery is normal size.Pulmonary venous flow normal. ECHO/Echo Transesophageal (JOSH) Interpretation Summary Bubble contrast study is negative for PFO/ASD. Normal LV size. The left ventricular ejection fraction is 60 %. Moderate mitral valve prolapse, bileaflet Moderately severe (3+) eccentric mitral valve insufficiency. Ordering Physician: Antonio San Referring Physician: Cayetano Marie MD Performed By: Tosin Smith, EMMA 03/13/25 1258 Date _ Cayetano Marie MD CC: PRODUCT REPRESENTATIVE-C Antonio San; Dr. Cayetano Marie MD; Dr. Rosendo Brown MD ~ Date Dictated: 03/13/25901 Date Transcribed: 03/13/251257 Grid Inspector: Signed [facility] Work Phone: Absolute lymphocyte countOrd ered By: Antonio San on 03-07-2025 Lymphocytes Auto (Unsp spec) [#/Vol] 1.59 10*3/uL 0.83-4.51 [facility] Absolute neutrophil countOrd ered By: Antonio San on 03-07-2025 Neutrophils (Bld) [#/Vol] 4.6 10*3/uL 2.0-7.7 [facility] Anion gap in Serum or Plasma Ordered By: Antonio San on 03-07-2025 Anion gap [Moles/Vol] 12 mmol/L 5-15 [facility] Automated lymphocyte count a s percentage of total leukocytesOrdered By: Antonio San on 03-07-2025 Lymphocytes/100 WBC Auto (Unsp spec) 22.6 % 19-41 [facility] BUN/creatinine ratioOrdered By: Antonio San on 03-07-2025 Urea nitrogen/Creatinine [Mass ratio] 12.8 mg/mg 10- [facility] Basic Metabolic Profile (BMP )on 03-07-2025 BUN/CRE 12.8 RATIO Normal - [facility] Comment on above: Performed By: #### L 500.4967, L500.1205 #### [facility] Laboratory [facility], [address] Calcium [Mass/Vol] 10.0 mg/dL Normal 7.6-11.0 [facility] Comment on above: Performed By: #### L 500.3400, L500.4100 #### [facility] [address] [place], [address] Chloride [Moles/Vol] 103 mmol/L Normal 98-108 [facility] Comment on above: Performed By: #### L 500.3400, L500.4100 #### [facility] [address] [place], [address] CO2 [Moles/Vol] 25.0 mmol/L Normal 21.0-32.0 [facility] Comment on above: Performed By: #### L 500.3400, L500.4100 #### [facility] [address] [place], [address] Creatinine [Mass/Vol] 1.09 mg/dL Normal 0.70-1.20 [facility] Comment on above: Performed By: #### L 500.3400, L500.4100 #### [facility] [address] [place], [address] GAP 12 Normal 5-15 [facility] Comment on above: Performed By: #### L 500.3400, L500.4100 #### [facility] [address] [place], [address] GFR/1.73 sq M.predicted among non-blacks MDRD (S/P/Bld) [Vol rate/Area] 52 mL/min/{1.73_m2} Low >60 [facility] Comment on above: Result Comment: mL/m in/1.73m2 CKD-EPI Creatinine Equation (2020) Performed By: #### L 500.3400, L500.4100 #### [facility] [address] [place], [address] Glucose [Mass/Vol] 133 mg/dL High 70-99 [facility] Comment on above: Performed By: #### L 500.3400, L500.4100 #### [facility] [address] [place], [address] Potassium [Moles/Vol] 4.4 mmol/L Normal 3.3-5.1 [facility] Comment on above: Performed By: #### L 500.3400, L500.4100 #### [facility] [address] [place], [address] Sodium [Moles/Vol] 141 mmol/L Normal 133-145 [facility] Comment on above: Performed By: #### L 500.3400, L500.4100 #### [facility] [address] [place], [address] Urea nitrogen [Mass/Vol] 14 mg/dL Normal 4-19 [facility] Comment on above: Performed By: #### L 500.3400, L500.4100 #### [facility] [address] [place], [address] Basophil percentageOrdered B y: Antonio Mena on 03-07-2025 Basophils/100 WBC (Bld) 0.7 % 0-1 [facility] CBC W/Diff, Automatedon 02-11 Absolute Lymph 1.59 X10 3/uL Normal 0.83-4.51 [facility] Comment on above: Performed By: #### L 500.3400, L500.4100 #### [facility] [address] [place], [address] Absolute Neut 4.6 X10 3/uL Normal 2.0-7.7 [facility] Comment on above: Performed By: #### L 500.3400, L500.4100 #### [facility] [address] [place], [address] Basophils/100 WBC (Bld) 0.7 % Normal 0-1 [facility] Comment on above: Performed By: #### L 500.3400, L500.4100 #### [facility] [address] [place], [address] Eosinophils/100 WBC (Bld) 2.3 % Normal 0-5 [facility] Comment on above: Performed By: #### L 500.3400, L500.4100 #### [facility] [address] [place], [address] Erythrocyte distribution width (RBC) [Ratio] 14.6 % Normal 11.6-14.6 [facility] Comment on above: Performed By: #### L 500.3400, L500.4100 #### [facility] [address] [place], [address] Hematocrit (Bld) [Volume fraction] 41.8 % Normal 37-47 [facility] Comment on above: Performed By: #### L 500.3400, L500.4100 #### [facility] [address] [place], [address] Hemoglobin (Bld) [Mass/Vol] 13.6 g/dL Normal 12.0-15.0 [facility] Comment on above: Performed By: #### L 500.3400, L500.4100 #### [facility] [address] [place], [address] IG% 0.300 Normal 0.0-0.9 [facility] Comment on above: Result Comment: IG% - Immature Granulocytes (promyelocytes, myelocytes and metamyelocytes) > 1% indicates that a LEFT SHIFT is Present. Performed By: #### L 500.3400, L500.4100 #### [facility] [address] [place], [address] Lymphocytes/100 WBC (Bld) 22.6 % Normal 19-41 [facility] Comment on above: Performed By: #### L 500.3400, L500.4100 #### [facility] [address] [place], [address] MCH (RBC) [Entitic mass] 30.3 pg Normal 27.0-32.0 [facility] Comment on above: Performed By: #### L 500.3400, L500.4100 #### [facility] [address] [place], [address] MCHC (RBC) [Mass/Vol] 32.5 g/dL Normal 32-36 [facility] Comment on above: Performed By: #### L 500.3400, L500.4100 #### [facility] [address] [place], [address] MCV (RBC) [Entitic vol] 93.1 fL Normal 81-99 [facility] Comment on above: Performed By: #### L 500.3400, L500.4100 #### [facility] [address] [place], [address] Monocytes/100 WBC (Bld) 9.2 % Normal 0-10 [facility] Comment on above: Performed By: #### L 500.3400, L500.4100 #### [facility] [address] [place], [address] Neutrophils/100 WBC (Bld) 64.9 % Normal 47-70 [facility] Comment on above: Performed By: #### L 500.3400, L500.4100 #### [facility] [address] [place], [address] Nucleated RBC (Bld) [#/Vol] 0 10*3/uL Normal 0-5 [facility] Comment on above: Performed By: #### L 500.3400, L500.4100 #### [facility] [address] [place], [address] Platelet mean volume (Bld) [Entitic vol] 10.6 fL Normal 6.2-12.0 [facility] Comment on above: Performed By: #### L 500.3400, L500.4100 #### [facility] [address] [place], [address] Platelets (Bld) [#/Vol] 243 10*3/uL Normal 150-450 [facility] Comment on above: Performed By: #### L 500.3400, L500.4100 #### [facility] [address] [place], [address] RBC (Bld) [#/Vol] 4.49 10*6/uL Normal 4.2-5.4 [facility] Comment on above: Performed By: #### L 500.3400, L500.4100 #### [facility] [address] [place], [address] RDW SD 49.7 fl High 35.1-43.9 [facility] Comment on above: Performed By: #### L 500.3400, L500.4100 #### [facility] [address] [place], [address] WBC (Bld) [#/Vol] 7.1 10*3/uL Normal 4.4-11.0 [facility] Comment on above: Performed By: #### L 500.3400, L500.4100 #### [facility] [address] [place], [address] Carbon dioxide, total [Moles /volume] in Central venous bloodOrdered By: Antonio San on 03-07-2025 CO2 [Moles/Vol] 25.0 mmol/L 21.0-32.0 [facility] Chloride assayOrdered By: Barbara San on 03-07-2025 Chloride [Moles/Vol] 103 mmol/L 98-108 [facility] Eosinophil percentageOrdered By: Antonio San on 03-07-2025 Eosinophils/100 WBC (Bld) 2.3 % 0-5 [facility] Erythrocyte distribution wid th ratioOrdered By: Antonio San on 03-07-2025 Erythrocyte distribution width (RBC) [Ratio] 14.6 % 11.6-14.6 [facility] Erythrocyte distribution wid th standard deviationOrdered By: Antonio San on 03-07-2025 Erythrocyte distribution width (RBC) [Ratio] 49.7 fl High 35.1-43.9 [facility] Glomerular filtration rate ( GFR) estimation/1.73 sq m using serum, plasma, or whole bOrdered By: Antonio San on 03-07-2025 GFR/1.73 sq M.predicted among non-blacks MDRD (S/P/Bld) [Vol rate/Area] 52 mL/min/{1.73_m2} Low >60 [facility] Comment on above: mL/min/1.73m2 CKD-EP I Creatinine Equation (2020) Hematocrit Auto (Bld) [Volum e fraction]Ordered By: Antonio San on 03-07-2025 Hematocrit (Bld) [Volume fraction] 41.8 % 37-47 [facility] Hemoglobin measurementOrdere d By: Antonio San on 03-07-2025 Hemoglobin (Bld) [Mass/Vol] 13.6 g/dL 12.0-15.0 [facility] Immature granulocytes/100 WB C Auto (Bld)Ordered By: Antonio San on 03-07-2025 Immature granulocytes/100 WBC (Bld) 0.300 % 0.0-0.9 [facility] Comment on above: IG% - Immature Granu locytes (promyelocytes, myelocytes and metamyelocytes) > 1% indicates that a LEFT SHIFT is Present. MCV (mean corpuscular volume ) determinationOrdered By: Antonio San on 03-07-2025 MCV (RBC) [Entitic vol] 93.1 fL 81-99 [facility] Mean corpuscular hemoglobin (MCH) determinationOrdered By: Antonio San 03-07-2025 MCH (RBC) [Entitic mass] 30.3 pg 27.0-32.0 [facility] Mean corpuscular hemoglobin concentration (MCHC) determinationOrdered By: Antonio San 03-07-2025 MCHC (RBC) [Mass/Vol] 32.5 g/dL 32-36 [facility] Mean platelet volume determi nationOrdered By: Antonio San on 03-07-2025 Platelet mean volume (Bld) [Entitic vol] 10.6 fL 6.2-12.0 [facility] Monocyte percentageOrdered B y: Antonio San on 03-07-2025 Monocytes/100 WBC (Bld) 9.2 % 0-10 [facility] Neutrophil percentageOrdered By: Antonio San on 03-07-2025 Neutrophils/100 WBC (Bld) 64.9 % 47-70 [facility] Nucleated red blood cell per centageOrdered By: Antonio San on 03-07-2025 Nucleated RBC/100 WBC (Bld) [Ratio] 0 % 0-5 [facility] Platelet countOrdered By: Barbara San on 03-07-2025 Platelets (Bld) [#/Vol] 243 10*3/uL 150-450 [facility] Potassium measurement (mass/ volume)Ordered By: Antonio San on 03-07-2025 Potassium (Unsp spec) [Mass/Vol] 4.4 mmol/L 3.3-5.1 [facility] RBC Auto (Bld) [#/Vol]Ordere d By: Antonio San on 03-07-2025 RBC (Bld) [#/Vol] 4.49 10*6/uL 4.2-5.4 [facility] Serum creatinine measurement (mass/volume)Ordered By: Antonio San on 03-07-2025 Creatinine [Mass/Vol] 1.09 mg/dL 0.70-1.20 [facility] Serum glucose measurement (m ass/volume)Ordered By: Antonio San on 03-07-2025 Glucose [Mass/Vol] 133 mg/dL High 70-99 [facility] Serum or plasma calcium dahlia urement (mass/volume)Ordered By: Antonio San on 03-07-2025 Calcium [Mass/Vol] 10.0 mg/dL 7.6-11.0 [facility] Serum or plasma urea nitroge n measurement (mass/volume)Ordered By: Antonio San on 03-07-2025 Urea nitrogen [Mass/Vol] 14 mg/dL 4-19 [facility] Sodium levelOrdered By: Antonio San on 03-07-2025 Sodium [Moles/Vol] 141 mmol/L 133-145 [facility] White blood cell (WBC) count Ordered By: Antonio San on 03-07-2025 WBC (Bld) [#/Vol] 7.1 10*3/uL 4.4-11.0 [facility] CNOVon 02-25-2025 CNOV Office Visit (FAMPWS ) SAHARA MELÉNDEZ ([id number]) 1945 F NFR Date Time Provider Department 02/25/25 9:40 AM [facility] During your visit today, we recorded the following information about you: Pulse Blood pressure Weight 64/minute 124/70 90.3 kg Rosendo Brown MD 02/25/2025 10:12 AM Signed - Take metoprolol at the higher dose your welt pocket machine operator prescribed. - Take furosemide (Lasix) at the lower dose your welt pocket machine operator prescribed. - Weigh yourself daily; if you gain more than 3-4 pounds in 24 hours, call our office. - Contact Dr. Shaikhs GI office to arrange cardiac clearance and proceed with your colon evaluation after the positive stool blood test. - Our staff will reach out to help you reschedule your MRI study and your geriatrics follow-up with Dr. Thompson. - Continue warm compresses on your right upper eyelid and schedule an ophthalmology appointment at [facility] to assess the remaining stye. Rosendo Brown MD 02/25/2025 12:51 PM Signed Sahara Meléndez is a 79-year-old female with a history of CHF, atrial fibrillation, and memory issues, presenting for follow-up after a recent hospitalization. HPI CHF and Atrial Fibrillation: - Hospitalized at [facility] from 01/17 to 01/19 for CHF exacerbation and atrial fibrillation. - Cardiology adjusted medications: increased metoprolol and decreased Lasix. - Significant improvement in dyspnea; denies chest discomfort. - Denies dizziness or edema beyond baseline. - Recent echocardiogram showed mitral valve prolapse with moderate 2+ mitral valve insufficiency and stage 2 diastolic dysfunction. - LVEF is 65%; no wall motion abnormalities noted. Memory Issues: - Referred to geriatrics for evaluation; MRI and follow-up appointments were canceled due to hospitalization. - No improvement in memory reported. Anemia: - Previous mild anemia noted; recent blood work on 01/25 showed improvement with hemoglobin at 14.3. - Iron level was 116; ferritin was negative. Hematochezia: - Stool test on 01/28 was positive for blood. - Sahara plans to follow up with Dr. David, her mycologist. Stye: - Previous stye treated with Blef-10 eye drops; reports improvement but still feels a palpable lump on the right upper eyelid. - Plans to follow up with [facility]. MEDICATIONS: Current Outpatient Medications Medication Sig ondansetron orally disintegrating (ZOFRAN ODT) 4 mg disintegrating tablet Take 8 mg by mouth every 8 hours as needed for nausea/vomiting. empagliflozin (JARDIANCE) 10 mg tablet Take 10 mg by mouth daily with breakfast. potassium chloride ER (KLOR-CON) 20 mEq tablet Take 20 mEq by mouth two times a day. furosemide (LASIX) 40 mg tablet Take 40 mg by mouth once daily. amiodarone (PACERONE) 200 mg tablet Take 200 mg by mouth once daily. zinc sulfate (ZINC-15 ORAL) Take 25 mg by mouth once daily. sulfacetamide (BLEPH-10) 10 % ophthalmic solution Use 1-2 drops in eyes as directed. INSIDE LOWER EYELID(S) 1-4 TIMES DAILY AND AT BEDTIME atorvastatin (LIPITOR) 40 mg tablet Take 1 tablet by mouth once daily. CPAP/BIPAP/OTHER Type .CPAPSettings into a note to see current settings/supplies/DME information. escitalopram oxalate (LEXAPRO) 10 mg tablet Take 1 tablet by mouth once daily. budesonide, enteric coated (ENTOCORT EC) 3 mg 24 hr capsule Take 9 mg by mouth once daily. Dr. David Cranberry 500 mg cap Take 500 mg by mouth three times daily. ascorbic acid, vitamin C, (VITAMIN C) 500 mg tablet Take 500 mg by mouth once daily. metoprolol tartrate, short acting, (LOPRESSOR) 50 mg tablet Take 100 mg by mouth two times a day. ELIQUIS 5 mg tab(s) Take 5 mg by mouth twice daily. loperamide (IMODIUM) 2 mg cap(s) Take 3 daily, as needed. nitroglycerin sublingual (NITROQUICK) 0.4 mg SL tablet Dissolve 1 tablet under the tongue as needed. for chest pain,every 5 min x3 CAFFEINE ORAL Take 0.5 tablets by mouth once daily. acetaminophen (TYLENOL) 325 mg tablet Take 2 tablets by mouth every 4 hours as needed. FOR PAIN. MULTIVITAMIN TAB Take one(1) tablet daily. No current facility-administered medications for this visit. ALLERGIES: ALLERGIES Allergen Reactions Bentyl [Dicyclomine* Mental Status Change Ciprofloxacin Hives, Other: See Comments IV Cipro only Pain at IV site Compazine [Prochlor* Intolerance [place] like she was coming out of her skin Dilaudid [Hydromorp* Intolerance E-Mycin [Erythromyc* GI Upset Latex Rash PAST MEDICAL HISTORY Diagnosis Date Abnormal CT of the abdomen left renal and multiple small hepatic cysts Arrhythmia Arthritis Back pain Celiac disease (HCC) Chronic diastolic (congestive) heart failure (HCC) 11/21/2017 Class 2 severe obesity due to excess calories with serious comorbidity and body mass index (BMI) of 37.0 to 37.9 in adult (HCC) 5 (more content not included)... Normal [facility] Echo, Limited Studyon 2024 Echo, Limited Study [facility] [address] [place] [address] Echo, Limited Study 02/18/25 0959 MR#: [id number] Acct: [id number] Name: SAHARA MELÉNDEZ Rep #: [id number] : 1945 79 From: Cayetano Marie MD Attending Dr: ALBERTO BourneC Status: DEP CLI Ordering Dr: Antonio San PRODUCT REPRESENTATIVE PRODUCT REPRESENTATIVE-C Date: 02/18/25 Location: [facility] Sex: F C Admitted: Reason For Study Reason For Study: RE-EVALUATE MV Procedure This was a limited 2D transthoracic echocardiogram. Exam performed in department. Left Ventricle Normal LV size. Apical false tendon noted. The left ventricular ejection fraction is 65 %. Stage 2 diastolic dysfunction. No regional wall motion abnormalities noted. Right Ventricle Normal RV size. Normal systolic function. Atria The left atrium is moderately enlarged. Normal right atrium. Mitral Valve The mitral papillary muscle appears thickened and/or calcified. Moderate mitral valve prolapse. Moderate (2+) eccentric mitral valve insufficiency. Moderate (2+) posteriorly directed mitral valve insufficiency. Tricuspid Valve Normal tricuspid valve. Mild to moderate (1-2+) tricuspid valve insufficiency. Aortic Valve Trisinus/trileaflet aortic valve. Pulmonic Valve Normal pulmonic valve. Great Vessels Normal aortic root. The pulmonary artery is normal size. Normal inferior vena cava. Pericardium/Pleural No pericardial effusion. MMode/2D Measurements Calculations LVIDd: 4.6 cm IVSd: 1.2 cm LVOT diam: 2.0 cm LVIDs: 3.1 cm LVPWd: 1.6 cm LVOT area: 3.1 cm2 FS: 32.8 % LAV(MOD-bp): 97.6 ml LVAd ap4: 30.7 cm2 SV(MOD-sp4): 62.7 ml LAV(MOD-bp) Indexed: 50.5 ml/m2 LVLd ap4: 7.6 cm SI(MOD-sp4): 32.4 ml/m2 LAV(MOD-sp2): 73.6 ml EDV(MOD-sp4): 100.9 ml LAV(MOD-sp4): 124.5 ml EDV(sp4-el): 105.1 ml LVAs ap4: 16.0 cm2 LVLs ap4: 5.8 cm ESV(MOD-sp4): 38.2 ml ESV(sp4-el): 37.3 ml EF(MOD-sp4): 62.2 % EF(sp4-el): 64.5 % SV(sp4-el): 67.8 ml LA A4 area: 32.8 cm2 LA dimension(2D): 5.0 cm RA A4 area: 18.7 cm2 Time Measurements MV dec time: 0.17 sec Doppler Measurements Calculations MV E max kayla: 87.2 cm/sec MV V2 max: 114.4 cm/sec MV dec slope: 513.9 cm/sec2 MV A max kayla: 44.1 cm/sec MV max P.2 mmHg MV E/A: 2.0 MV V2 mean: 60.6 cm/sec MV mean P.9 mmHg MV V2 VTI: 33.2 cm MR max kayla: 580.0 cm/sec MR max P.6 mmHg MR mean kayla: 463.3 cm/sec MR mean P.3 mmHg MR VTI: 206.8 cm ECHO/Echo, Limited Study Interpretation Summary Normal LV size. Apical false tendon noted. Moderate mitral valve prolapse. Moderate (2+) eccentric mitral valve insufficiency. The left ventricular ejection fraction is 65 %. No regional wall motion abnormalities noted. Moderate (2+) posteriorly directed mitral valve insufficiency. Stage 2 diastolic dysfunction. Ordering Physician: Antonio San Referring Physician: Antonio San Performed By: Zarina Caban RCS 02/24/251950 Date Cayetano Marie MD CC: BRADFORD San; Dr. Rosendo Brown MD Date Dictated: 02/18/2559 Date Transcribed: 02/24/251950 Grid Inspector: Signed Normal [facility] Cardiology Visit Reporton Cardiology Visit Report [facility] [address] [place] [address] OFFICE VISIT Date of Service: 02/12/25 MR#: [id number] Acct: [id number] Name: SAHARA MELÉNDEZ Rep #: [id number] : 1945 Provider: BRADFORD urbina Age/Sex: 79/F Location: [facility] Status: Signed HPI HPI History of Present Illness Details: This is a 79-year-old white female who presents today for outpatient cardiovascular follow-up of her history of underlying MVP/MR and ventricular ectopy. She was admitted to hospital in January 2023 for TIA. Upon discharge, she underwent a 30-day event monitor. Her event monitor showed short runs of wide-complex tachycardia as well as paroxysmal atrial fibrillation. She was started on anticoagulation and her metoprolol was increased. To assess further, she was asked to undergo a stress test that was completed on 02/18/2023 that showed sinus rhythm at 66 bpm and negative for ischemia. She presented to [facility] on 01/17/2025 for ongoing shortness of breath. Plan was to proceed with cardioversion in Emergency Department, but patient converted. She was admitted for sotalol therapy. Sotalol was ultimately discontinued due to QTc prolongation. At cardiology office appointment on 01/21/2025, she was noted be tachycardic with atrial fibrillation. She was restarted on metoprolol 50 mg p.o. twice daily. Due to ongoing elevated heart rate, her metoprolol was increased and started on amiodarone. She denies chest, arm, jaw, or neck discomfort. She acknowledges palpitations. She describes this as flutter and skipping. This is less often. She acknowledges bilateral lower extremity edema. She acknowledges shortness breath with activity and improves with rest. She notes this with activity such as walking fast, walking up hill, or going up stairs. She denies shortness of breath at rest, orthopnea, cough, or PND. She acknowledges lightheadedness with ambulation that improves with rest. She denies dizziness, near-syncope, or syncope. She acknowledges fatigue that is improving. Intake Vital Signs 01/16/25 13:02 01/28/25 10:15 02/12/25 08:41 Height 5 ft 3 in 5 ft 3 in 5 ft 3 in Weight: 203 lb BMI 35.9 BP 120/72 Blood Pressure Location Lt brachial Position Sitting Respiration 18 Pulse 60 Pulse Source NIBP Intake Visit Reasons: [address] Administrator Required: No Accompanied by: Is patient in pain?: No Allergies ciprofloxacin (From Cipro) Allergy (Verified 02/12/25 08:47) Hives atropine (From Lomotil) Adverse Reaction (Verified 02/12/25 08:47) Nausea dicyclomine (From Bentyl) Adverse Reaction (Verified 02/12/25 08:47) Other diphenoxylate (From Lomotil) Adverse Reaction (Verified 02/12/25 08:47) Nausea erythromycin base (Erythromycin Base) Adverse Reaction (Verified 02/12/25 08:47) Vomiting hydromorphone HCl (From Dilaudid) Adverse Reaction (Verified 02/12/25 08:47) anxiety latex Adverse Reaction (Verified 02/12/25 08:47) Rash prochlorperazine edisylate (From Compazine) Adverse Reaction (Verified 02/12/25 08:47) anxiety prochlorperazine maleate (From Compazine) Adverse Reaction (Verified 02/12/25 08:47) anxiety Medications ???Medication ???Instructions ???Recorded ???Confirmed ???Type multivitamin 1 tab PO DAILY health maintenance 01/20/23 02/12/25 History ascorbic acid (vitamin C) 500 mg 500 mg PO DAILY 03/18/23 02/12/25 History tablet (C-500) cranberry 500 mg capsule 500 mg PO TID 03/18/23 02/12/25 Hi story atorvastatin 40 mg tablet 40 mg PO QHS 05/19/23 02/12/25 His tory lactobacillus combination no.9 4 4,000 mmu cells PO DAILY 05/19/23 02/12/25 History billion cell capsule (Adult 50 Plus Probiotic) acetaminophen 500 mg tablet 1,000 mg PO DAILY pain 01/25/24 History ubrogepant 100 mg tablet (Ubrelvy) mg PO .0prn PRN headache 4 02/12/25 History nitroglycerin 0.4 mg sublingual 0.4 mg sublingual Q5-15M PRN Chest 07/26/24 02/12/25 Rx tablet Pain #25 tabs apixaban 5 mg tablet (Eliquis) 5 mg PO BID #180 tabs 11/08/2412/04 Rx amiodarone 200 mg tablet 200 mg PO DAILY #30 tabs 01/19/25 02/12/25 Rx empagliflozin 10 mg tablet 10 mg PO DAILY #30 tabs 01/19/25 0 02/12/25 Rx (Jardiance) ondansetron 4 mg disintegrating 8 mg (2 x 4 mg) PO Q8H PRN PRN 07/0602/12/25 Rx tablet Nausea/Vomiting #30 tabs potassium chloride 20 mEq 20 meq PO BIDCM #60 tabs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 7021-8 ####[facility] LABCLIA [id number] [address], [facility] [place] Platelet mean volume (Bld) [Entitic vol] 10.8 fL Normal 9.0-12.7 [facility] Comment on above: Order Comment: Speci men Type: BLOOD SPECIMENOrdering Facility: [facility] Address: [address] [place] [address] Performed By: #### 5 7021-8 ####[facility] LABIA [id number] [place] [id number] [place] Platelets (Bld) [#/Vol] 310 10*3/uL Normal 150-400 [facility] Comment on above: Order Comment: Speci men Type: BLOOD SPECIMENOrdering Facility: [facility] Address: [address] [place], [place] [address] Performed By: #### 5 7021-8 ####[facility] LABIA [id number] [place] [id number] [place] RBC (Bld) [#/Vol] 4.93 10*6/uL Normal 3.90-5.20 [facility] Comment on above: Order Comment: Speci men Type: BLOOD SPECIMENOrdering Facility: [facility] Address: [address] [place] [address] Performed By: #### 5 7021-8 ####[facility] LABIA [id number] [place] [id number] [place] WBC (Bld) [#/Vol] 9.87 10*3/uL Normal 3.70-11.00 [facility] Comment on above: Order Comment: Speci men Type: BLOOD SPECIMENOrdering Facility: [facility] Address: [address] [place] [address] Performed By: #### 5 7021-8 ####[facility] [id number] [address] [place] Farideh 01-25-2025 CNOV Office Visit (EYADPWS ) SAHARA MELÉNDEZ ([id number]) 1945 F NFR Date Time Provider Department 01/25/25 8:00 AM ROSENDO BROWN FAMPWS During your visit today, we recorded the following information about you: Pulse Blood pressure Weight 92/minute 110/64 91.2 kg Rosendo Brown MD 01/25/2025 8:45 AM Signed Continue taking metoprolol along with the newly started amiodarone for your heart rate control. Continue your blood thinner as prescribed for AFib. Check your weight every morning with your home scale. If you gain more than 4 pounds in a 24-hour period, call our office. Get the blood tests (CBC including anemia studies, iron, B12, folate, nepharitin, and a BMP for kidney function and electrolytes) ordered for today. Follow through with your appointment with Dr. David at 11:00 AM today regarding your gastrointestinal symptoms (diarrhea and nausea) and updates on your medications. Use loperamide only when necessary for diarrhea and mention any concerns about its strength to your provider. For the small stye on your right upper eyelid, apply warm compresses and use the Bleph 10 antibiotic eye drops as directed. If the stye does not improve within 7 to 10 days or worsens, please notify us. Reschedule the MRIs and a follow-up appointment with Dr. Thompson for your memory evaluation, as recommended. Continue to monitor for any new or worsening symptoms such as increased shortness of breath, chest pain, dizziness, swelling, or severe palpitations; report these if they occur. Keep your scheduled follow-up with Antonio San, cardiology, next week for additional review and medication adjustment regarding your heart condition. Rosendo Brown MD 01/25/2025 12:18 PM Signed Subjective Sahara is a 79 year old female who presents for Hospital F/U History of Present Illness CHF and AFib: - Recent hospitalization at [facility] from 01/17 to 01/19 for CHF exacerbation and worsening AFib. - Presented with dyspnea and mild LE edema; CXR showed signs of heart failure. - Initial treatment included sotalol and Lasix; echocardiogram revealed: - EF of 60%. - Diastolic dysfunction. - Enlargement of left and right atria. - Worsening mitral valve function. - Discharged on amiodarone; metoprolol was initially stopped but later resumed at 50 mg BID by welt pocket machine operator Dr. San on 01/21. - Lisinopril was held by cardiology as well after med adjustments. - Reports improvement in dyspnea and no chest pain; able to lie down comfortably. - Occasional palpitations, similar to pre-hospitalization. - No significant LE edema, dizziness, or lightheadedness. - Not monitoring daily weights or blood pressure at home. - Follow-up with [facility] scheduled for next week. Memory Issues: - Noted by Sahara's daughter during recent hospitalization. - Referred to a plate shear operator for evaluation; did not complete recommended MRI and follow-up. Reinforced compliance. Gastrointestinal Issues: - Recent gastric emptying study was normal. - Reports improvement in nausea and diarrhea; using loperamide PRN. - Follow-up with Dr. David scheduled for today at 11:00. Stye: - Developed a stye on the right upper eyelid 2 days ago. no vision issues or discomfort. - No previous history of styes since childhood. Review of Systems Objective Blood pressure 110/64, pulse 92, weight 91.2 kg (201 lb), SpO2 98%. Physical Exam GENERAL: NAD, alert and oriented. SKIN: Unremarkable, no rash or skin lesions. HEAD: Normocephalic. EYES: PERRLA, EOMI, conjunctiva clear. Small stye on the upper right mid lid, no surrounding erythema. LUNGS: Clear to auscultation bilaterally, no wheezes/rhonchi/rales. HEART: Irregularly irregular rhythm, no change in murmur. No ectopy. EXTREMITIES: Normal, no deformities, no skin discoloration, no edema. NEURO: Awake, alert and oriented x3, cranial nerves II-XII grossly intact, normal gait, no involuntary motions. Results Labs: (01/17 to 01/19) - Laboratory tests: Relatively stable - Thyroid function: Normal Tests: (01/17 to 01/19) - EKG: QTC prolongation - Gastric emptying study: Normal Imaging: (01/17 to 01/19) - Chest X-ray: Findings consistent with heart failure - Echocardiogram: Ejection fraction 60% (normal), diastolic dysfunction, left and right atrial enlargement, worsened mitral valve function Assessment AND Plan 1. 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 Chronic diastolic (congestive) heart failure (HCC) (I50.32) 3. Nonrheumatic mitral (valve) insufficiency (I34.0) 4. Mitral valve insufficiency, unspecified etiology (I34.0) - Recent hospitalization from 01/17 to 01/19 for CHF exacerbation with SOB and peripheral edema; CXR confirmed heart failure. - Echocardiogram showed EF of 60% with diastolic dysfunction and atrial (more content not included)... Normal [facility] Ferritin [facility] 2024 Ferritin [Mass/Vol] 168.0 ng/mL Normal 14.7-205.1 [facility] Comment on above: Order Comment: Speci men Type: BLOOD SPECIMENOrdering Facility: [facility] Address: [address] [place] [address] Performed By: #### 2 4321-2, 2276-4, 18484-9 ####[facility] LABCLIA [id number] [address] [place] Folate SerPl-mCncon 01-26-20 25 Folate [Mass/Vol] ng/mL Normal >4.7 [facility] Comment on above: Order Comment: Speci men Type: BLOOD SPECIMENOrdering Facility: [facility] Address: [address] [place] [address] Result Comment: A re sult of > 20 ng/mL is not necessarily indicative of a pathologic or treatable condition: it reflects a limitation of the test methodology. Assay reference range: 4.8 to 24.2 ng/mL. Suitable for detection of folate deficiency. Reference: Folate III (Folate III) [package insert V 1.0 [place]ese]. [facility], [place], [place]: July 2015. Performed By: #### 2 284-8, 2132-9 ####[facility] LABCLIA [id number] [place] [address] [place] Gastroenterology Visit Repor ton 01-25-2025 Gastroenterology Visit Report [facility] [address] [place] [address] OFFICE VISIT Date of Service: 01/25/25 MR#: [id number] Acct: [id number] Name: SAHARA MELÉNDEZ Rep #: [id number] : 1945 Provider: Lawrence David DO Age/Sex: 79/F Location: [facility] Status: Signed Intake Vital Signs 07/26/24 10:47 01/21/25 12:41 Height 5 ft 3 in 5 ft 3 in Intake Visit Reasons: 3 M FU Allergies ciprofloxacin (From Cipro) Allergy (Verified 01/21/25 12:54) Hives ciprofloxacin HCl (From Cipro) Allergy (Verified 01/21/25 12:54) Hives atropine (From Lomotil) Adverse Reaction (Verified 01/21/25 12:54) Nausea dicyclomine (From Bentyl) Adverse Reaction (Verified 01/21/25 12:54) Other diphenoxylate (From Lomotil) Adverse Reaction (Verified 01/21/25 12:54) Nausea erythromycin base (Erythromycin Base) Adverse Reaction (Verified 01/21/25 12:54) Vomiting hydromorphone HCl (From Dilaudid) Adverse Reaction (Verified 01/21/25 12:54) anxiety latex Adverse Reaction (Verified 01/21/25 12:54) Rash prochlorperazine edisylate (From Compazine) Adverse Reaction (Verified 01/21/25 12:54) anxiety prochlorperazine maleate (From Compazine) Adverse Reaction (Verified 01/21/25 12:54) anxiety Medications ???Medication ???Instructions ???Recorded ???Confirmed ???Type multivitamin 1 tab PO DAILY health maintenance 01/20/23 01/21/25 History ascorbic acid (vitamin C) 500 mg 500 mg PO DAILY 03/18/23 01/21/25 History tablet (C-500) cranberry 500 mg capsule 500 mg PO TID 03/18/23 01/21/25 Hi story atorvastatin 40 mg tablet 40 mg PO QHS 05/19/23 01/21/25 His tory lactobacillus combination no.9 4 4,000 mmu cells PO DAILY 05/19/23 01/21/25 History billion cell capsule (Adult 50 Plus Probiotic) acetaminophen 500 mg tablet 1,000 mg PO DAILY pain 01/25/24 History simethicone 80 mg chewable tablet 80 mg PO BID 01/25/24 01/21/25 Hi story (Gas Relief (simethicone)) ubrogepant 100 mg tablet (Ubrelvy) mg PO .0prn PRN headache 4 01/21/25 History nitroglycerin 0.4 mg sublingual 0.4 mg sublingual Q5-15M PRN Chest 07/26/24 01/21/25 Rx tablet Pain #25 tabs apixaban 5 mg tablet (Eliquis) 5 mg PO BID #180 tabs 11/08/2409/05 Rx amiodarone 200 mg tablet 200 mg PO DAILY #30 tabs 01/19/25 01/21/25 Rx empagliflozin 10 mg tablet 10 mg PO DAILY #30 tabs 01/19/25 0 01/21/25 Rx (Jardiance) furosemide 40 mg tablet 40 mg PO BIDLX #60 tabs 01/19/25 0 01/21/25 Rx ondansetron 4 mg disintegrating 8 mg (2 x 4 mg) PO Q8H PRN PRN 07/0601/21/25 Rx tablet Nausea/Vomiting #30 tabs potassium chloride 20 mEq 20 meq PO BIDCM #60 tabs 01/19/25 01/21/25 Rx tablet,extended release(part/cryst) escitalopram oxalate 10 mg tablet 10 mg PO QDAY 01/21/25 01/21/25 H istory loperamide 2 mg capsule mg PO 01/21/25 01/21/25 History metoprolol tartrate 50 mg tablet 50 mg PO BID #180 tabs 01/21/25 Rx Have you fallen in the past year?: No PFSH Medical History Dyspnea on exertion Wears glasses High cholesterol TIA (transient ischemic attack) History of IBS History of diverticulitis History of Holter monitoring History of atrial fibrillation Cardiology follow-up encounter Wears partial dentures Arthritis Interstitial cystitis Bladder disease Easy bruising PONV (postoperative nausea and vomiting) Migraine headache Dietary restriction History of hiatal hernia Gastric reflux Non-smoker Shortness of breath on exertion History of edema History of stress test History of echocardiogram Femur fracture, left Esophagitis IBS (irritable bowel syndrome) Hepatic cyst Renal cyst Non-rheumatic mitral regurgitation Nonrheumatic mitral (valve) prolapse Ventricular ectopy Colitis Fibromyalgia Diverticulosis Anxiety and depression Diarrhea Mitral valve prolapse syndrome Surgical History History of dilation of urethra History of breast surgery History of esophagogastroduodenoscopy (EGD) History of colonoscopy History of surgery on lower extremity H/O hysterectomy with unilateral oophorectomy History of tonsillectomy History of right knee joint replacement History of left knee replacement History of colon surgery History of cholecystectomy History of appendectomy Family History Father CAD (coronary artery disease) Mother CVA (cerebral vascular accident) Diabetes Sister Heart disease Valvular-mitral Grandmother CAD (coronary artery disease) Grandfather CAD (coronary artery disease) Social History Smoking Status: Never smoker alcohol intake: never substance use type: d (more content not included)... Normal [facility] Iron and Iron binding capaci panelon 01-25-2025 Iron [Mass/Vol] 116 ug/dL Normal 41-186 [facility] Comment on above: Order Comment: Speci men Type: BLOOD SPECIMENOrdering Facility: [facility] Address: [address] [place] [address] Performed By: #### 2 4321-2, 2276-4, 69957-2 ####[facility] LABCLIA [id number] [place] [address] [place] Iron binding capacity [Mass/Vol] 415 ug/dL High 232-386 [facility] Comment on above: Order Comment: Speci men Type: BLOOD SPECIMENOrdering Facility: [facility] Address: [address] [place] [address] Performed By: #### 2 4321-2, 2276-4, 91535-3 ####[facility] LABCLIA [id number] [place] [address] [place] Iron/TIBC [Molar ratio] 28.0 % Normal 15.0-57.0 C [facility] Comment on above: Order Comment: Speci men Type: BLOOD SPECIMENOrdering Facility: [facility] Address: [address] [place] [address] Performed By: #### 2 4321-2, 2276-4, 40250-2 ####[facility] LABCLIA [id number] [place] [id number] [place] Vit B12 [facility]Pl[facility] Foundationon 025 Cobalamin (Vitamin B12) [Mass/Vol] 856 pg/mL Normal 232-1245 [facility] Comment on above: Order Comment: Speci men Type: BLOOD SPECIMENOrdering Facility: [facility] Address: [address] [place] [address] Performed By: #### 2 284-8, 2132-9 ####[facility] LABCLIA [id number] [facility] [address] STATES OF [facility] Absolute lymphocyte countOrd ered By: Antonio San on 01-21-2025 Lymphocytes Auto (Unsp spec) [#/Vol] 1.74 10*3/uL 0.83-4.51 [facility] Absolute neutrophil countOrd ered By: Antonio San on 01-21-2025 Neutrophils (Bld) [#/Vol] 6.5 10*3/uL 2.0-7.7 [facility] Anion gap in Serum or Plasma Ordered By: Antonio San on 01-21-2025 Anion gap [Moles/Vol] 12 mmol/L 5-15 [facility] Automated blood erythrocyte countOrdered By: Antonio San on 01-21-2025 RBC (Bld) [#/Vol] 4.79 10*6/uL Normal 4.2-5.4 [facility] Comment on above: Performed By: #### L 500.3400, L500.4100 #### [facility] [address] [place], [place], [id number] Automated blood hematocrit ( percentage)Ordered By: Antonio San on 01-21-2025 Hematocrit (Bld) [Volume fraction] 44.3 % Normal 37-47 [facility] Comment on above: Performed By: #### L 500.3400, L500.4100 #### [facility] [address] [place], [address] Automated lymphocyte count a s percentage of total leukocytesOrdered By: Antonio San on 01-21-2025 Lymphocytes/100 WBC Auto (Unsp spec) 18.1 % Low 19-41 [facility] BUN/creatinine ratioOrdered By: Antonio San on 01-21-2025 Urea nitrogen/Creatinine [Mass ratio] 17.9 mg/mg - [facility] Basic Metabolic Profile (BMP )on 01-21-2025 BUN/CRE 17.9 RATIO Normal 07-01 [facility] Comment on above: Performed By: #### L 501.5200, L501.9520, L501.2300, L500.4050, L100.0100 #### [facility] [address] [place], [address] Calcium [Mass/Vol] 9.8 mg/dL Normal 7.6-11.0 [facility] Comment on above: Performed By: #### L 501.5200, L501.9520, L501.2300, L500.4050, L100.0100 #### [facility] [address] [place], [address] Chloride [Moles/Vol] 103 mmol/L Normal 98-108 [facility] Comment on above: Performed By: #### L 501.5200, L501.9520, L501.2300, L500.4050, L100.0100 #### [facility] [address] [place], [address] CO2 [Moles/Vol] 25.4 mmol/L Normal 21.0-32.0 [facility] Comment on above: Performed By: #### L 501.5200, L501.9520, L501.2300, L500.4050, L100.0100 #### [facility] [address] [place], [address] Creatinine [Mass/Vol] 1.49 mg/dL High 0.70-1.20 [facility] Comment on above: Performed By: #### L 501.5200, L501.9520, L501.2300, L500.4050, L100.0100 #### [facility] [address] [place], [address] GAP 12 Normal 5-15 [facility] Comment on above: Performed By: #### L 501.5200, L501.9520, L501.2300, L500.4050, L100.0100 #### [facility] [address] [place], [address] GFR/1.73 sq M.predicted among non-blacks MDRD (S/P/Bld) [Vol rate/Area] 36 mL/min/{1.73_m2} Low >60 [facility] Comment on above: Result Comment: mL/m in/1.73m2 CKD-EPI Creatinine Equation (2020) Performed By: #### L 501.5200, L501.9520, L501.2300, L500.4050, L100.0100 #### [facility] [address] [place], [address] Glucose [Mass/Vol] 123 mg/dL High 70-99 [facility] Comment on above: Performed By: #### L 501.5200, L501.9520, L501.2300, L500.4050, L100.0100 #### [facility] [address] [place], [address] Potassium [Moles/Vol] 5.1 mmol/L Normal 3.3-5.1 [facility] Comment on above: Result Comment: Hemo lysis present, Results??could be affected. ?? Performed By: #### L 501.5200, L501.9520, L501.2300, L500.4050, L100.0100 #### [facility] [address] [place], [address] Sodium [Moles/Vol] 140 mmol/L Normal 133-145 [facility] Comment on above: Performed By: #### L 501.5200, L501.9520, L501.2300, L500.4050, L100.0100 #### [facility] [address] [place], [address] Urea nitrogen [Mass/Vol] 27 mg/dL High 4-19 [facility] Comment on above: Performed By: #### L 501.5200, L501.9520, L501.2300, L500.4050, L100.0100 #### [facility] [address] [place], [address] Basophil percentageOrdered B y: Antonio San on 01-21-2025 Basophils/100 WBC (Bld) 0.6 % Normal 0-1 [facility] Comment on above: Performed By: #### L 500.3400, L500.4100 #### [facility] [address] [place], [address] Bilirubin Test strip Ql (U)O rdered By: Antonio San on 01-21-2025 Bilirubin Ql (U) Negative Negative [facility] CBC W/Diff, Automatedon 01-10 Absolute Lymph 1.74 X10 3/uL Normal 0.83-4.51 [facility] Comment on above: Performed By: #### L 500.3400, L500.4100 #### [facility] [address] [place], [address] Absolute Neut 6.5 X10 3/uL Normal 2.0-7.7 [facility] Comment on above: Performed By: #### L 500.3400, L500.4100 #### [facility] [address] [place], [address] IG% 0.400 Normal 0.0-0.9 [facility] Comment on above: Result Comment: IG% - Immature Granulocytes (promyelocytes, myelocytes and metamyelocytes) > 1% indicates that a LEFT SHIFT is Present. Performed By: #### L 500.3400, L500.4100 #### [facility] [address] [place], [address] Lymphocytes/100 WBC (Bld) 18.1 % Low 19-41 [facility] Comment on above: Performed By: #### L 500.3400, L500.4100 #### [facility] [address] [place], [address] Nucleated RBC (Bld) [#/Vol] 0 10*3/uL Normal 0-5 [facility] Comment on above: Performed By: #### L 500.3400, L500.4100 #### [facility] [address] [place], [address] RDW SD 49.9 fl High 35.1-43.9 [facility] Comment on above: Performed By: #### L 500.3400, L500.4100 #### [facility] [address] [place], [address] Carbon dioxide, total [Moles /volume] in Central venous bloodOrdered By: Antoino San on 01-21-2025 CO2 [Moles/Vol] 25.4 mmol/L 21.0-32.0 [facility] Cardiology Visit Reporton Cardiology Visit Report [facility] [address] [place] [address] OFFICE VISIT Date of Service: 01/21/25 MR#: [id number] Acct: [id number] Name: SAHARA MELÉNDEZ Rep #: [id number] : 1945 Provider: BRADFORD urbina Age/Sex: 79/F [place] [facility] [place]: Signed HPI HPI History of Present Illness Surgical H P: Yes Details: This is a 79-year-old white female who presents today for outpatient cardiovascular follow-up of her history of underlying MVP/MR and ventricular ectopy. She was admitted to hospital in January 2023 for TIA. Upon discharge, she underwent a 30-day event monitor. Her event monitor showed short runs of wide-complex tachycardia as well as paroxysmal atrial fibrillation. She was started on anticoagulation and her metoprolol was increased. To assess further, she was asked to undergo a stress test that was completed on 02/18/2023 that showed sinus rhythm at 66 bpm and negative for ischemia. She presented to [facility] on 01/17/2025 for ongoing shortness of breath. Plan was to proceed with cardioversion in Emergency Department, but patient converted. She was admitted for sotalol therapy. Sotalol was ultimately discontinued due to QTc prolongation. She denies chest, arm, jaw, or neck discomfort. She acknowledges palpitations. She acknowledges bilateral lower extremity edema. She acknowledges shortness breath with activity and improves with rest. She denies shortness of breath at rest, orthopnea, cough, or PND. She acknowledges lightheadedness with ambulation that improves with rest. She denies dizziness, near-syncope, or syncope. She acknowledges fatigue. Intake Vital Signs 01/17/25 10:14 01/21/25 12:41 Height 5 ft 3 in 5 ft 3 in Weight: 203 lb BMI 35.9 BP 88/66 L Blood Pressure Location Lt brachial Position Supine Respiration 18 Pulse 73 Pulse Source NIBP Intake Visit Reasons: S/P (01/19/25) Supervisor Road Administrator Required: No Is patient in pain?: No Allergies ciprofloxacin (From Cipro) Allergy (Verified 01/21/25 12:54) Hives ciprofloxacin HCl (From Cipro) Allergy (Verified 01/21/25 12:54) Hives atropine (From Lomotil) Adverse Reaction (Verified 01/21/25 12:54) Nausea dicyclomine (From Bentyl) Adverse Reaction (Verified 01/21/25 12:54) Other diphenoxylate (From Lomotil) Adverse Reaction (Verified 01/21/25 12:54) Nausea erythromycin base (Erythromycin Base) Adverse Reaction (Verified 01/21/25 12:54) Vomiting hydromorphone HCl (From Dilaudid) Adverse Reaction (Verified 01/21/25 12:54) anxiety latex Adverse Reaction (Verified 01/21/25 12:54) Rash prochlorperazine edisylate (From Compazine) Adverse Reaction (Verified 01/21/25 12:54) anxiety prochlorperazine maleate (From Compazine) Adverse Reaction (Verified 01/21/25 12:54) anxiety Medications ???Medication ???Instructions ???Recorded ???Confirmed ???Type multivitamin 1 tab PO DAILY health maintenance 01/20/23 01/21/25 History ascorbic acid (vitamin C) 500 mg 500 mg PO DAILY 03/18/23 01/21/25 History tablet (C-500) cranberry 500 mg capsule 500 mg PO TID 03/18/23 01/21/25 Hi story atorvastatin 40 mg tablet 40 mg PO QHS 05/19/23 01/21/25 His tory lactobacillus combination no.9 4 4,000 mmu cells PO DAILY 05/19/23 01/21/25 History billion cell capsule (Adult 50 Plus Probiotic) acetaminophen 500 mg tablet 1,000 mg PO DAILY pain 01/25/24 History simethicone 80 mg chewable tablet 80 mg PO BID 01/25/24 01/21/25 Hi story (Gas Relief (simethicone)) ubrogepant 100 mg tablet (Ubrelvy) mg PO .0prn PRN headache 4 01/21/25 History nitroglycerin 0.4 mg sublingual 0.4 mg sublingual Q5-15M PRN Chest 07/26/24 01/21/25 Rx tablet Pain #25 tabs apixaban 5 mg tablet (Eliquis) 5 mg PO BID #180 tabs 11/08/2409/05 Rx amiodarone 200 mg tablet 200 mg PO DAILY #30 tabs 01/19/25 01/21/25 Rx empagliflozin 10 mg tablet 10 mg PO DAILY #30 tabs 01/19/25 0 01/21/25 Rx (Jardiance) furosemide 40 mg tablet 40 mg PO BIDLX #60 tabs 01/19/25 0 01/21/25 Rx ondansetron 4 mg disintegrating 8 mg (2 x 4 mg) PO Q8H PRN PRN 07/0601/21/25 Rx tablet Nausea/Vomiting #30 tabs potassium chloride 20 mEq 20 meq PO BIDCM #60 tabs 01/19/25 01/21/25 Rx tablet,extended release(part/cryst) escitalopram oxalate 10 mg tablet 10 mg PO QDAY 01/21/25 01/21/25 H istory loperamide 2 mg capsule mg PO 01/21/25 01/21/25 History metoprolol tartrate 50 mg tablet 50 mg PO BID #180 tabs 01/21/25 Rx Ejection fraction %: 60 Have you fallen in the past year?: No [facility] Medical History Dyspnea on exertion Wears glasses High cholesterol TIA (transient ischemic attack) History of IBS History of diverticulitis History of Holter (more content not included)... Normal [facility] Chloride assayOrdered By: Barbara San on 01-21-2025 Chloride [Moles/Vol] 103 mmol/L 98-108 [facility] Eosinophil percentageOrdered By: Antonio San on 01-21-2025 Eosinophils/100 WBC (Bld) 1.3 % Normal 0-5 [facility] Comment on above: Performed By: #### L 500.3400, L500.4100 #### [facility] [address] [place], [address] Erythrocyte distribution wid th ratioOrdered By: Antonio San on 01-21-2025 Erythrocyte distribution width (RBC) [Ratio] 14.7 % High 11.6-14.6 [facility] Comment on above: Performed By: #### L 500.3400, L500.4100 #### [facility] [address] [place], [address] Erythrocyte distribution wid th standard deviationOrdered By: Antonio San on 01-21-2025 Erythrocyte distribution width (RBC) [Ratio] 49.9 fl High 35.1-43.9 [facility] Glomerular filtration rate ( GFR) estimation/1.73 sq m using serum, plasma, or whole bOrdered By: Antonio San on 01-21-2025 GFR/1.73 sq M.predicted among non-blacks MDRD (S/P/Bld) [Vol rate/Area] 36 mL/min/{1.73_m2} Low >60 [facility] Comment on above: mL/min/1.73m2 CKD-EP I Creatinine Equation (2020) Hemoglobin measurementOrdere d By: Antonio San on 01-21-2025 Hemoglobin (Bld) [Mass/Vol] 14.2 g/dL Normal 12.0-15.0 [facility] Comment on above: Performed By: #### L 500.3400, L500.4100 #### [facility] [address] [place], [address] Immature granulocytes/100 WB C Auto (Bld)Ordered By: Antonio San on 01-21-2025 Immature granulocytes/100 WBC (Bld) 0.400 % 0.0-0.9 [facility] Comment on above: IG% - Immature Granu locytes (promyelocytes, myelocytes and metamyelocytes) > 1% indicates that a LEFT SHIFT is Present. Ketones Test strip Ql (U)Ord ered By: Antonio San on 01-21-2025 Ketones Ql (U) Negative Negative [facility] L503.7505on 01-21-2025 Natriuretic peptide B (Bld) [Mass/Vol] 2889 pg/mL High <=1800 [facility] Comment on above: Result Comment: Hear t Failure Unlikely: < 300 pg/mL Heart Failure Likely < 50 Years: > 450 pg/mL 50-75 Years: > 900 pg/mL >75 Years: > 1800 pg/mL Performed By: #### L 501.5200, L501.9520, L501.2300, L500.4050, L100.0100 #### [facility] [address] [place], [address] MCV (mean corpuscular volume ) determinationOrdered By: Antonio San on 01-21-2025 MCV (RBC) [Entitic vol] 92.5 fL Normal 81-99 [facility] Comment on above: Performed By: #### L 500.3400, L500.4100 #### [facility] [address] [place], [address] Mean corpuscular hemoglobin (MCH) determinationOrdered By: Antonio San on 01-21-2025 MCH (RBC) [Entitic mass] 29.6 pg Normal 27.0-32.0 [facility] Comment on above: Performed By: #### L 500.3400, L500.4100 #### [facility] [address] [place], [place], [address] Mean corpuscular hemoglobin concentration (MCHC) determinationOrdered By: Antonio San on 01-21-2025 MCHC (RBC) [Mass/Vol] 32.1 g/dL Normal 32-36 [facility] Comment on above: Performed By: #### L 500.3400, L500.4100 #### [facility] [address] [place], [place], [address] Mean platelet volume determi nationOrdered By: Antonio San on 01-21-2025 Platelet mean volume (Bld) [Entitic vol] 10.4 fL Normal 6.2-12.0 [facility] Comment on above: Performed By: #### L 500.3400, L500.4100 #### [facility] [address] [place], [address] Microscopic analysis of urin e for red blood cells (RBC)Ordered By: Antonio San on 01-21-2025 Microscopic analysis of urine for red blood cells (RBC) 0 SEEN /hpf 0-5 [facility] Monocyte percentageOrdered B y: Antonio San on 01-21-2025 Monocytes/100 WBC (Bld) 11.7 % High 0-10 [facility] Comment on above: Performed By: #### L 500.3400, L500.4100 #### [facility] [address] [place], [place], [address] Mucus LM Ql (Urine sed)Order ed By: Antonio San on 01-21-2025 Mucus Ql (Urine sed) 0 SEEN /hpf [facility] Natriuretic peptide.B prohor edis N-Terminal [Mass/volume] in Serum or PlasmaOrdered By: Antonio San on 01-21-2025 Natriuretic peptide.B prohormone N-Terminal [Mass/Vol] 2889 pg/mL High <1800 [facility] Comment on above: Heart Failure Unlike ly: < 300 pg/mLHeart Failure Likely< 50 Years: > 450 pg/mL50-75 Years: > 900 pg/mL>75 Years: > 1800 pg/mL Neutrophil percentageOrdered By: Antonio San on 01-21-2025 Neutrophils/100 WBC (Bld) 67.9 % Normal 47-70 [facility] Comment on above: Performed By: #### L 500.3400, L500.4100 #### [facility] [address] [place], [address] Nitrite Test strip Ql (U)Ord ered By: Antonio San on 01-21-2025 Nitrite Ql (U) Negative Negative [facility] Nucleated red blood cell per centageOrdered By: Antonio San on 01-21-2025 Nucleated RBC/100 WBC (Bld) [Ratio] 0 % 0-5 [facility] Platelet countOrdered By: Barbara San on 01-21-2025 Platelets (Bld) [#/Vol] 324 10*3/uL Normal 150-450 [facility] Comment on above: Performed By: #### L 500.3400, L500.4100 #### [facility] [address] [place], [place], [address] Potassium measurement (mass/ volume)Ordered By: Antonio San on 01-21-2025 Potassium (Unsp spec) [Mass/Vol] 5.1 mmol/L 3.3-5.1 [facility] Comment on above: Hemolysis present, R esults could be affected. Protein Test strip Ql (U)Ord ered By: Antonio San on 01-21-2025 Protein Ql (U) 15 mg/dl High Negative [facility] Serum creatinine measurement (mass/volume)Ordered By: Antonio San on 01-21-2025 Creatinine [Mass/Vol] 1.49 mg/dL High 0.70-1.20 [facility] Serum glucose measurement (m ass/volume)Ordered By: Antonio San on 01-21-2025 Glucose [Mass/Vol] 123 mg/dL High 70-99 [facility] Serum or plasma calcium dahlia urement (mass/volume)Ordered By: Antonio San on 01-21-2025 Calcium [Mass/Vol] 9.8 mg/dL 7.6-11.0 [facility] Serum or plasma urea nitroge n measurement (mass/volume)Ordered By: Antonio San on 01-21-2025 Urea nitrogen [Mass/Vol] 27 mg/dL High 4-19 [facility] Sodium levelOrdered By: Antonio San on 01-21-2025 Sodium [Moles/Vol] 140 mmol/L 133-145 [facility] Squamous epithelial cells de tection in urine sediment by light microscopyOrdered By: Antonio San on 01-21-2025 Epithelial cells.squamous LM Ql (Urine sed) 0 SEEN /hpf -10 [facility] Urinalysis, Completeon 01-21 WBC 0-5 SEEN Normal 0-5 [facility] Comment on above: Order Comment: REINALDO CTOR TO SPECIFY Performed By: #### L 501.5200, L501.9520, L501.2300, L500.4050, L100.0100 #### [facility] [address] [place], [address] BACTERIA 0 SEEN Normal None Seen [facility] Comment on above: Order Comment: REINALDO CTOR TO SPECIFY Performed By: #### L 501.5200, L501.9520, L501.2300, L500.4050, L100.0100 #### [facility] [address] [place], [address] EPI,SQUAMOUS 0 SEEN Normal - [facility] Comment on above: Order Comment: REINALDO CTOR TO SPECIFY Performed By: #### L 501.5200, L501.9520, L501.2300, L500.4050, L100.0100 #### [facility] [address] [place], [address] Mucus Ql (Urine sed) 0 SEEN Normal [facility] Comment on above: Order Comment: REINALDO CTOR TO SPECIFY Performed By: #### L 501.5200, L501.9520, L501.2300, L500.4050, L100.0100 #### [facility] [address] [place], [address] RBC 0 SEEN Normal 0-5 [facility] Comment on above: Order Comment: COLLE CTOR TO SPECIFY Performed By: #### L 501.5200, L501.9520, L501.2300, L500.4050, L100.0100 #### [facility] [address] [place], [address] Urine clarityOrdered By: Yoel San on 01-21-2025 Clarity (U) Clear Clear [facility] Urine color determinationOrd ered By: Antonio San on 01-21-2025 Color (U) Yellow Yellow [facility] Urine glucose detectionOrder ed By: Antonio San on 01-21-2025 Glucose Ql (U) 1000 mg/dl High Normal [facility] Urine leukocyte esterase det ection by dipstickOrdered By: Antonio San on 01-21-2025 Leukocyte esterase Test strip Ql (U) 25 /ul High Negative [facility] Urine pHOrdered By: Antonio urbina on 01-21-2025 pH (U) 5.0 [pH] 5.0 - 8.0 [facility] Urine sediment bacteria coun t by microscopy (number/high power field)Ordered By: Antonio San on 01-21-2025 Bacteria LM.HPF (Urine sed) [#/Area] 0 /[HPF] None Seen [facility] Urine specific gravity measu rementOrdered By: Antonio San on 01-21-2025 Specific gravity (U) [Rel density] 1.020 1.002-1.03 0 [facility] Urine urobilinogen measureme ntOrdered By: Antonio San on 01-21-2025 Urobilinogen Ql (U) Normal mg/dl Normal [facility] White blood cell (WBC) count Ordered By: Antonio San on 01-21-2025 WBC (Bld) [#/Vol] 9.6 10*3/uL Normal 4.4-11.0 [facility] Comment on above: Performed By: #### L 500.3400, L500.4100 #### [facility] [address] [place], [address] White blood cell countOrdere d By: Antonoi San on 01-21-2025 White blood cell count 0-5 SEEN /hpf 0-5 [facility] 12 Lead EKGon 01-19-2025 12 Lead EKG [facility] [address] [place] [address] 12 Lead EKG 01/17/25 0931 MR#: [id number] Acct: [id number] Name: SAHARA MELÉNDEZ Rep #: [id number] : 1945 79 From: Pato Simmons MD Attending Dr: Dr. Veronica Louise DO Status: DIS I N Ordering Dr: Liat Hale MD Date: 01/19/25 Location: [facility] Sex: F C Admitted: 01/17/25 Test Reason : FLOOR ORDER Blood Pressure : */* mmHG Vent. Rate : 70 BPM Atrial Rate : 70 BPM P-R Int : 144 ms QRS Dur : 88 ms QT Int : 448 ms P-R-T Axes : 68 54 25 degrees QTcB Int : 483 ms Sinus rhythm with sinus arrhythmia with occasional Premature ventricular complexes Possible Left atrial enlargement Left ventricular hypertrophy with repolarization abnormality ( Sokolow-Neri ) Abnormal ECG When compared with ECG of 17-Jan-2025 05:28, MANUAL COMPARISON REQUIRED DATA IS UNCONFIRMED Confirmed by Pato Simmons ([id number]), senior editor STACEY TERRAZAS ([id number]) on 01/21/2025 11:57:11 AM Referred By: DANI Confirmed By: Pato Simmons 01/21/25 1157 Date Pato Simmons MD CC: Dr. Liat Hale MD; Dr. Veronica Louise DO; Dr. Rosendo Brown MD Signed Normal [facility] Anion gap in Serum or Plasma Ordered By: Liat Hale on 01-19-2025 Anion gap [Moles/Vol] 10 mmol/L 01-24 [facility] BUN/creatinine ratioOrdered By: Liat Hale on 01-19-2025 Urea nitrogen/Creatinine [Mass ratio] 19.3 mg/mg - [facility] Bilirubin, totalOrdered By: Liat Hale on 01-19-2025 Bilirubin [Mass/Vol] 0.66 mg/dL 0.00-1.30 [facility] CBC-Complete Blood Cnt No Faith ffon 01-19-2025 Erythrocyte distribution width (RBC) [Ratio] 14.7 % High 11.6-14.6 [facility] Comment on above: Performed By: #### L 501.5200, L501.9520, L501.2300, L500.4050, L100.0100 #### [facility] [address] [place], [address] Hematocrit (Bld) [Volume fraction] 39.4 % Normal 37-47 [facility] Comment on above: Performed By: #### L 501.5200, L501.9520, L501.2300, L500.4050, L100.0100 #### [facility] [address] [place], [address] Hemoglobin (Bld) [Mass/Vol] 12.9 g/dL Normal 12.0-15.0 [facility] Comment on above: Performed By: #### L 501.5200, L501.9520, L501.2300, L500.4050, L100.0100 #### [facility] [address] [place], [address] MCH (RBC) [Entitic mass] 30.2 pg Normal 27.0-32.0 [facility] Comment on above: Performed By: #### L 501.5200, L501.9520, L501.2300, L500.4050, L100.0100 #### [facility] [address] [place], [address] MCHC (RBC) [Mass/Vol] 32.7 g/dL Normal 32-36 [facility] Comment on above: Performed By: #### L 501.5200, L501.9520, L501.2300, L500.4050, L100.0100 #### [facility] [address] [place], [address] MCV (RBC) [Entitic vol] 92.3 fL Normal 81-99 [facility] Comment on above: Performed By: #### L 501.5200, L501.9520, L501.2300, L500.4050, L100.0100 #### [facility] [address] [place], [address] Platelet mean volume (Bld) [Entitic vol] 10.0 fL Normal 6.2-12.0 [facility] Comment on above: Performed By: #### L 501.5200, L501.9520, L501.2300, L500.4050, L100.0100 #### [facility] [address] [place], [address] Platelets (Bld) [#/Vol] 284 10*3/uL Normal 150-450 [facility] Comment on above: Performed By: #### L 501.5200, L501.9520, L501.2300, L500.4050, L100.0100 #### [facility] [address] [place], [address] RBC (Bld) [#/Vol] 4.27 10*6/uL Normal 4.2-5.4 [facility] Comment on above: Performed By: #### L 501.5200, L501.9520, L501.2300, L500.4050, L100.0100 #### [facility] [address] [place], [address] RDW SD 49.5 fl High 35.1-43.9 [facility] Comment on above: Performed By: #### L 501.5200, L501.9520, L501.2300, L500.4050, L100.0100 #### [facility] [address] [place], [address] WBC (Bld) [#/Vol] 9.4 10*3/uL Normal 4.4-11.0 [facility] Comment on above: Performed By: #### L 501.5200, L501.9520, L501.2300, L500.4050, L100.0100 #### [facility] [address] [place], [address] Carbon dioxide, total [Moles /volume] in Central venous bloodOrdered By: Liat Hale on 01-19-2025 CO2 [Moles/Vol] 29.5 mmol/L 21.0-32.0 [facility] Chloride assayOrdered By: Martin Hale on 01-19-2025 Chloride [Moles/Vol] 103 mmol/L 98-108 [facility] Comprehensive Metabolic Prof ilon 01-19-2025 Albumin [Mass/Vol] 3.6 g/dL Normal 3.4-4.8 [facility] Comment on above: Performed By: #### L 501.5200, L501.9520, L501.2300, L500.4050, L100.0100 #### [facility] [address] [place], [address] Albumin/Globulin [Mass ratio] 1.1 {ratio} Normal 0.9-2.4 [facility] Comment on above: Performed By: #### L 501.5200, L501.9520, L501.2300, L500.4050, L100.0100 #### [facility] [address] [place], [address] ALK PHOS 79 U/L Normal 35-104 [facility] Comment on above: Performed By: #### L 501.5200, L501.9520, L501.2300, L500.4050, L100.0100 #### [facility] [address] [place], [address] ALT [Catalytic activity/Vol] 19 U/L Normal <=34 [facility] Comment on above: Performed By: #### L 501.5200, L501.9520, L501.2300, L500.4050, L100.0100 #### [facility] [address] [place], [address] AST [Catalytic activity/Vol] 22 U/L Normal <=31 [facility] Comment on above: Performed By: #### L 501.5200, L501.9520, L501.2300, L500.4050, L100.0100 #### [facility] [address] [place], [address] Bilirubin [Mass/Vol] 0.66 mg/dL Normal 0.00-1.30 [facility] Comment on above: Performed By: #### L 501.5200, L501.9520, L501.2300, L500.4050, L100.0100 #### [facility] [address] [place], [address] BUN/CRE 19.3 RATIO Normal 10-20 [facility] Comment on above: Performed By: #### L 501.5200, L501.9520, L501.2300, L500.4050, L100.0100 #### [facility] [address] [place], [address] Calcium [Mass/Vol] 9.5 mg/dL Normal 7.6-11.0 [facility] Comment on above: Performed By: #### L 501.5200, L501.9520, L501.2300, L500.4050, L100.0100 #### [facility] [address] [place], [address] Chloride [Moles/Vol] 103 mmol/L Normal 98-108 [facility] Comment on above: Performed By: #### L 501.5200, L501.9520, L501.2300, L500.4050, L100.0100 #### [facility] [address] [place], [address] CO2 [Moles/Vol] 29.5 mmol/L Normal 21.0-32.0 [facility] Comment on above: Performed By: #### L 501.5200, L501.9520, L501.2300, L500.4050, L100.0100 #### [facility] [address] [place], [address] Creatinine [Mass/Vol] 0.84 mg/dL Normal 0.70-1.20 [facility] Comment on above: Performed By: #### L 501.5200, L501.9520, L501.2300, L500.4050, L100.0100 #### [facility] [address] [place], [address] ECRCL 59.81 ml/min Normal 50-250 [facility] Comment on above: Performed By: #### L 501.5200, L501.9520, L501.2300, L500.4050, L100.0100 #### [facility] [address] [place], [address] GAP 10 Normal 5-15 [facility] Comment on above: Performed By: #### L 501.5200, L501.9520, L501.2300, L500.4050, L100.0100 #### [facility] [address] [place], [address] GFR/1.73 sq M.predicted among non-blacks MDRD (S/P/Bld) [Vol rate/Area] 71 mL/min/{1.73_m2} Normal >60 [facility] Comment on above: Result Comment: mL/m in/1.73m2 CKD-EPI Creatinine Equation (2020) Performed By: #### L 501.5200, L501.9520, L501.2300, L500.4050, L100.0100 #### [facility] [address] [place], [address] Globulin (S) [Mass/Vol] 3.3 g/dL Normal 2.2-4.2 [facility] Comment on above: Performed By: #### L 501.5200, L501.9520, L501.2300, L500.4050, L100.0100 #### [facility] [address] [place], [address] Glucose [Mass/Vol] 104 mg/dL High 70-99 [facility] Comment on above: Performed By: #### L 501.5200, L501.9520, L501.2300, L500.4050, L100.0100 #### [facility] [address] [place], [address] Potassium [Moles/Vol] 4.2 mmol/L Normal 3.3-5.1 [facility] Comment on above: Performed By: #### L 501.5200, L501.9520, L501.2300, L500.4050, L100.0100 #### [facility] [address] [place], [address] Sodium [Moles/Vol] 142 mmol/L Normal 133-145 [facility] Comment on above: Performed By: #### L 501.5200, L501.9520, L501.2300, L500.4050, L100.0100 #### [facility] [address] [place], [address] T PROT 6.9 g/dL Normal 5.9-8.4 [facility] Comment on above: Performed By: #### L 501.5200, L501.9520, L501.2300, L500.4050, L100.0100 #### [facility] [address] [place], [address] Urea nitrogen [Mass/Vol] 16 mg/dL Normal 4-19 [facility] Comment on above: Performed By: #### L 501.5200, L501.9520, L501.2300, L500.4050, L100.0100 #### [facility] [address] [place], [address] Erythrocyte distribution wid th ratioOrdered By: Veronica Louise on 01-19-2025 Erythrocyte distribution width (RBC) [Ratio] 14.7 % High 11.6-14.6 [facility] Erythrocyte distribution wid th standard deviationOrdered By: Veronica Louise on 01-19-2025 Erythrocyte distribution width (RBC) [Ratio] 49.5 fl High 35.1-43.9 [facility] Folates, RBCon 01-19-2025 Fol.,Hemolysate 533.0 ng/mL Normal Not Estab. [facility] Comment on above: Performed By: #### L 503.0106, L3100.1725 ####[facility] [address] [place], [place], [id number] Folate, RBC 1363 ng/mL Normal >498 [facility] Comment on above: Result Comment: Perf ormed at: - [facility] [id number] Land Conservation Specialist: Addison Maradiaga PhD, Phone: [phone] Performed By: #### L 503.0106, L3100.1725 ####[facility] [address] [place], [address] Hematocrit (Bld) [Volume fraction] 39.1 % Normal 34.0-46.6 [facility] Comment on above: Performed By: #### L 503.0106, L3100.1725 ####[facility] [address] [place], [address] Glomerular filtration rate ( GFR) estimation/1.73 sq m using serum, plasma, or whole bOrdered By: Liat Hale on 01-19-2025 GFR/1.73 sq M.predicted among non-blacks MDRD (S/P/Bld) [Vol rate/Area] 71 mL/min/{1.73_m2} >60 [facility] Comment on above: mL/min/1.73m2 CKD-EP I Creatinine Equation (2020) Hematocrit Auto (Bld) [Volum e fraction]Ordered By: Veronica Louise on 01-19-2025 Hematocrit (Bld) [Volume fraction] 39.4 % 37-47 [facility] Hemoglobin measurementOrdere d By: Veronica Louise on 01-19-2025 Hemoglobin (Bld) [Mass/Vol] 12.9 g/dL 12.0-15.0 [facility] Laboratory - Chemistry and C hemistry - challengeOrdered By: Liat Hale on 01-19-2025 AST [Catalytic activity/Vol] 22 U/L <32 [facility] MCV (mean corpuscular volume ) determinationOrdered By: Veronica Louise on 01-19-2025 MCV (RBC) [Entitic vol] 92.3 fL 81-99 [facility] Mean corpuscular hemoglobin (MCH) determinationOrdered By: Veronica Louise on 01-19-2025 MCH (RBC) [Entitic mass] 30.2 pg 27.0-32.0 [facility] Mean corpuscular hemoglobin concentration (MCHC) determinationOrdered By: Veronica Louise on 01-19-2025 MCHC (RBC) [Mass/Vol] 32.7 g/dL 32-36 [facility] Mean platelet volume determi nationOrdered By: Veronica Louise on 01-19-2025 Platelet mean volume (Bld) [Entitic vol] 10.0 fL 6.2-12.0 [facility] Platelet countOrdered By: Erick Louise on 01-19-2025 Platelets (Bld) [#/Vol] 284 10*3/uL 150-450 [facility] Potassium measurement (mass/ volume)Ordered By: Liat Hale on 01-19-2025 Potassium (Unsp spec) [Mass/Vol] 4.2 mmol/L 3.3-5.1 [facility] RBC Auto (Bld) [#/Vol]Ordere d By: Veronica Louise on 01-19-2025 RBC (Bld) [#/Vol] 4.27 10*6/uL 4.2-5.4 [facility] Serum creatinine measurement (mass/volume)Ordered By: Liat Hale on 01-19-2025 Creatinine [Mass/Vol] 0.84 mg/dL 0.70-1.20 [facility] Serum globulin measurementOr dered By: Liat Hale on 01-19-2025 Globulin (S) [Mass/Vol] 3.3 g/dL 2.2-4.2 [facility] Serum glucose measurement (m ass/volume)Ordered By: Liat Hale on 01-19-2025 Glucose [Mass/Vol] 104 mg/dL High 70-99 [facility] Serum or plasma alanine gonsalves otransferase (ALT) measurementOrdered By: Liat Hale on 01-19-2025 ALT [Catalytic activity/Vol] 19 U/L <35 [facility] Serum or plasma albumin dahlia urement (mass/volume)Ordered By: Liat Hale on 01-19-2025 Albumin [Mass/Vol] 3.6 g/dL 3.4-4.8 [facility] Serum or plasma albumin/glob ulin mass ratioOrdered By: Liat Hale on 01-19-2025 Albumin/Globulin [Mass ratio] 1.1 {ratio} 0.9-2.4 [facility] Serum or plasma alkaline abdullahi sphatase measurementOrdered By: Liat Hale on 01-19-2025 ALP [Catalytic activity/Vol] 79 U/L 35-104 [facility] Serum or plasma calcium dahlia urement (mass/volume)Ordered By: Liat Hale on 01-19-2025 Calcium [Mass/Vol] 9.5 mg/dL 7.6-11.0 [facility] Serum or plasma urea nitroge n measurement (mass/volume)Ordered By: Liat Hale on 01-19-2025 Urea nitrogen [Mass/Vol] 16 mg/dL 4-19 [facility] Sodium levelOrdered By: Marshall Hale on 01-19-2025 Sodium [Moles/Vol] 142 mmol/L 133-145 [facility] Total proteinOrdered By: Yamilex Hale on 01-19-2025 Protein [Mass/Vol] 6.9 g/dL 5.9-8.4 [facility] White blood cell (WBC) count Ordered By: Veronica Louise on 01-19-2025 WBC (Bld) [#/Vol] 9.4 10*3/uL 4.4-11.0 [facility] 12 Lead EKGon 01-18-2025 12 Lead EKG [facility] [address] [place] [address] 12 Lead EKG 01/19/25 0535 MR#: [id number] Acct: [id number] Name: SAHARA MELÉNDEZ Rep #: [id number] : 1945 79 From: Pato Simmons MD Attending Dr: Dr. Veronica Louise DO Status: DIS I N Ordering Dr: Veronica Louise DO Date: 01/18/25 Location: [facility] Sex: F C Admitted: 01/17/25 Test Reason : AM EKG Blood Pressure : */* mmHG Vent. Rate : 61 BPM Atrial Rate : 61 BPM P-R Int : 142 ms QRS Dur : 86 ms QT Int : 478 ms P-R-T Axes : 38 11 6 degrees QTcB Int : 481 ms Normal sinus rhythm with sinus arrhythmia Nonspecific ST abnormality Abnormal ECG When compared with ECG of 18-Jan-2025 15:58, MANUAL COMPARISON REQUIRED DATA IS UNCONFIRMED Confirmed by Pato Simmons ([id number]), senior editor STACEY TERRAZAS ([id number]) on 01/21/2025 11:55:29 AM Referred By: Confirmed By: Pato Simmons 01/21/25 1155 Date Pato Simmons MD CC: Dr. Veronica Louise DO; Dr. Rosendo Brown MD Signed Normal [facility] 12 Lead EKG [facility] [address] [place] [address] 12 Lead EKG 01/18/25 1558 MR#: [id number] Acct: [id number] Name: SAHARA MELÉNDEZ Rep #: [id number] : 1945 79 From: Pato Simmons MD Attending Dr: Dr. Veronica Louise DO Status: DIS I N Ordering Dr: Veronica Louise DO Date: 01/18/25 Location: [facility] Sex: F C Admitted: 01/17/25 Test Reason : ARRYTH Blood Pressure : */* mmHG Vent. Rate : 67 BPM Atrial Rate : 67 BPM P-R Int : 144 ms QRS Dur : 80 ms QT Int : 478 ms P-R-T Axes : 31 4 13 degrees QTcB Int : 505 ms Sinus rhythm with occasional Premature atrial complexes Left ventricular hypertrophy with repolarization abnormality ( R in aVL ) Prolonged QT Abnormal ECG When compared with ECG of 18-Jan-2025 07:22, Premature ventricular complexes are now Present Confirmed by Pato Simmons ([id number]), senior editor STACEY TERRAZAS ([id number]) on 01/21/2025 11:55:57 AM Referred By: Confirmed By: Pato Simmons 01/21/25 1156 Date Pato Simmons MD CC: Dr. Veronica Louise DO; Dr. Rosendo Brown MD Signed Normal [facility] Absolute lymphocyte countOrd ered By: Veronica Louise on 01-18-2025 Lymphocytes Auto (Unsp spec) [#/Vol] 1.50 10*3/uL 0.83-4.51 [facility] Absolute neutrophil countOrd ered By: Veronica Louise on 01-18-2025 Neutrophils (Bld) [#/Vol] 5.7 10*3/uL 2.0-7.7 [facility] Automated lymphocyte count a s percentage of total leukocytesOrdered By: Veronica Louise on 01-18-2025 Lymphocytes/100 WBC Auto (Unsp spec) 17.9 % Low 19-41 [facility] Basophil percentageOrdered B y: Veronica Louise on 01-18-2025 Basophils/100 WBC (Bld) 0.6 % 0-1 [facility] CBC W/Diff, Automatedon Absolute Lymph 1.50 X10 3/uL Normal 0.83-4.51 [facility] Comment on above: Performed By: #### L 501.5200, L501.9520, L501.2300, L500.4050, L100.0100 #### [facility] [address] [place], [address] Absolute Neut 5.7 X10 3/uL Normal 2.0-7.7 [facility] Comment on above: Performed By: #### L 501.5200, L501.9520, L501.2300, L500.4050, L100.0100 #### [facility] [address] [place], [address] Basophils/100 WBC (Bld) 0.6 % Normal 0-1 [facility] Comment on above: Performed By: #### L 501.5200, L501.9520, L501.2300, L500.4050, L100.0100 #### [facility] [address] [place], [address] Eosinophils/100 WBC (Bld) 2.5 % Normal 0-5 [facility] Comment on above: Performed By: #### L 501.5200, L501.9520, L501.2300, L500.4050, L100.0100 #### [facility] [address] [place], [address] Erythrocyte distribution width (RBC) [Ratio] 14.6 % Normal 11.6-14.6 [facility] Comment on above: Performed By: #### L 501.5200, L501.9520, L501.2300, L500.4050, L100.0100 #### [facility] [address] [place], [address] Hematocrit (Bld) [Volume fraction] 36.2 % Low 37-47 [facility] Comment on above: Performed By: #### L 501.5200, L501.9520, L501.2300, L500.4050, L100.0100 #### [facility] [address] [place], [address] Hemoglobin (Bld) [Mass/Vol] 11.9 g/dL Low 12.0-15.0 [facility] Comment on above: Performed By: #### L 501.5200, L501.9520, L501.2300, L500.4050, L100.0100 #### [facility] [address] [place], [address] IG% 0.400 Normal 0.0-0.9 [facility] Comment on above: Result Comment: IG% - Immature Granulocytes (promyelocytes, myelocytes and metamyelocytes) > 1% indicates that a LEFT SHIFT is Present. Performed By: #### L 501.5200, L501.9520, L501.2300, L500.4050, L100.0100 #### [facility] [address] [place], [address] Lymphocytes/100 WBC (Bld) 17.9 % Low 19-41 [facility] Comment on above: Performed By: #### L 501.5200, L501.9520, L501.2300, L500.4050, L100.0100 #### [facility] [address] [place], [address] MCH (RBC) [Entitic mass] 30.4 pg Normal 27.0-32.0 [facility] Comment on above: Performed By: #### L 501.5200, L501.9520, L501.2300, L500.4050, L100.0100 #### [facility] [address] [place], [address] MCHC (RBC) [Mass/Vol] 32.9 g/dL Normal 32-36 [facility] Comment on above: Performed By: #### L 501.5200, L501.9520, L501.2300, L500.4050, L100.0100 #### [facility] [address] [place], [address] MCV (RBC) [Entitic vol] 92.3 fL Normal 81-99 [facility] Comment on above: Performed By: #### L 501.5200, L501.9520, L501.2300, L500.4050, L100.0100 #### [facility] [address] [place], [address] Monocytes/100 WBC (Bld) 10.7 % High 0-10 [facility] Comment on above: Performed By: #### L 501.5200, L501.9520, L501.2300, L500.4050, L100.0100 #### [facility] [address] [place], [address] Neutrophils/100 WBC (Bld) 67.9 % Normal 47-70 [facility] Comment on above: Performed By: #### L 501.5200, L501.9520, L501.2300, L500.4050, L100.0100 #### [facility] [address] [place], [address] Nucleated RBC (Bld) [#/Vol] 0 10*3/uL Normal 0-5 [facility] Comment on above: Performed By: #### L 501.5200, L501.9520, L501.2300, L500.4050, L100.0100 #### [facility] [address] [place], [address] Platelet mean volume (Bld) [Entitic vol] 10.3 fL Normal 6.2-12.0 [facility] Comment on above: Performed By: #### L 501.5200, L501.9520, L501.2300, L500.4050, L100.0100 #### [facility] [address] [place], [address] Platelets (Bld) [#/Vol] 245 10*3/uL Normal 150-450 [facility] Comment on above: Performed By: #### L 501.5200, L501.9520, L501.2300, L500.4050, L100.0100 #### [facility] [address] [place], [address] RBC (Bld) [#/Vol] 3.92 10*6/uL Low 4.2-5.4 [facility] Comment on above: Performed By: #### L 501.5200, L501.9520, L501.2300, L500.4050, L100.0100 #### [facility] [address] [place], [address] RDW SD 49.1 fl High 35.1-43.9 [facility] Comment on above: Performed By: #### L 501.5200, L501.9520, L501.2300, L500.4050, L100.0100 #### [facility] [address] [place], [address] WBC (Bld) [#/Vol] 8.4 10*3/uL Normal 4.4-11.0 [facility] Comment on above: Performed By: #### L 501.5200, L501.9520, L501.2300, L500.4050, L100.0100 #### [facility] [address] [place], [address] Comprehensive Metabolic Prof [facility] 01-18-2025 Albumin [Mass/Vol] 3.5 g/dL Normal 3.4-4.8 [facility] Comment on above: Performed By: #### L 501.5200, L501.9520, L501.2300, L500.4050, L100.0100 #### [facility] [address] [place], [address] Albumin/Globulin [Mass ratio] 1.2 {ratio} Normal 0.9-2.4 [facility] Comment on above: Performed By: #### L 501.5200, L501.9520, L501.2300, L500.4050, L100.0100 #### [facility] [address] [place], [address] ALK PHOS 71 U/L Normal 35-104 [facility] Comment on above: Performed By: #### L 501.5200, L501.9520, L501.2300, L500.4050, L100.0100 #### [facility] [address] [place], [address] ALT [Catalytic activity/Vol] 19 U/L Normal <=34 [facility] Comment on above: Performed By: #### L 501.5200, L501.9520, L501.2300, L500.4050, L100.0100 #### [facility] [address] [place], [address] AST [Catalytic activity/Vol] 23 U/L Normal <=31 [facility] Comment on above: Performed By: #### L 501.5200, L501.9520, L501.2300, L500.4050, L100.0100 #### [facility] [address] [place], [address] Bilirubin [Mass/Vol] 0.83 mg/dL Normal 0.00-1.30 [facility] Comment on above: Performed By: #### L 501.5200, L501.9520, L501.2300, L500.4050, L100.0100 #### [facility] [address] [place], [address] BUN/CRE 24.4 RATIO High 10-20 [facility] [facility] Comment on above: Performed By: #### L 501.5200, L501.9520, L501.2300, L500.4050, L100.0100 #### [facility] [address] [place], [address] Calcium [Mass/Vol] 9.4 mg/dL Normal 7.6-11.0 [facility] Comment on above: Performed By: #### L 501.5200, L501.9520, L501.2300, L500.4050, L100.0100 #### [facility] [address] [place], [address] Chloride [Moles/Vol] 105 mmol/L Normal 98-108 [facility] Comment on above: Performed By: #### L 501.5200, L501.9520, L501.2300, L500.4050, L100.0100 #### [facility] [address] [place], [address] CO2 [Moles/Vol] 28.6 mmol/L Normal 21.0-32.0 [facility] Comment on above: Performed By: #### L 501.5200, L501.9520, L501.2300, L500.4050, L100.0100 #### [facility] [address] [place], [address] Creatinine [Mass/Vol] 0.67 mg/dL Low 0.70-1.20 [facility] Comment on above: Performed By: #### L 501.5200, L501.9520, L501.2300, L500.4050, L100.0100 #### [facility] [address] [place], [address] ECRCL 63.17 ml/min Normal 50-250 [facility] Comment on above: Performed By: #### L 501.5200, L501.9520, L501.2300, L500.4050, L100.0100 #### [facility] [address] [place], [address] GAP 10 Normal 5-15 [facility] Comment on above: Performed By: #### L 501.5200, L501.9520, L501.2300, L500.4050, L100.0100 #### [facility] [address] [place], [address] GFR/1.73 sq M.predicted among non-blacks MDRD (S/P/Bld) [Vol rate/Area] 89 mL/min/{1.73_m2} Normal >60 [facility] Comment on above: Result Comment: mL/m in/1.73m2 CKD-EPI Creatinine Equation (2020) Performed By: #### L 501.5200, L501.9520, L501.2300, L500.4050, L100.0100 #### [facility] [address] [place], [address] Globulin (S) [Mass/Vol] 3.0 g/dL Normal 2.2-4.2 [facility] Comment on above: Performed By: #### L 501.5200, L501.9520, L501.2300, L500.4050, L100.0100 #### [facility] [address] [place], [address] Glucose [Mass/Vol] 108 mg/dL High 70-99 [facility] Comment on above: Performed By: #### L 501.5200, L501.9520, L501.2300, L500.4050, L100.0100 #### [facility] [address] [place], [address] Potassium [Moles/Vol] 3.5 mmol/L Normal 3.3-5.1 [facility] Comment on above: Performed By: #### L 501.5200, L501.9520, L501.2300, L500.4050, L100.0100 #### [facility] [address] [place], [address] Sodium [Moles/Vol] 143 mmol/L Normal 133-145 [facility] Comment on above: Performed By: #### L 501.5200, L501.9520, L501.2300, L500.4050, L100.0100 #### [facility] [address] [place], [address] T PROT 6.5 g/dL Normal 5.9-8.4 [facility] Comment on above: Performed By: #### L 501.5200, L501.9520, L501.2300, L500.4050, L100.0100 #### [facility] [address] [place], [address] Urea nitrogen [Mass/Vol] 16 mg/dL Normal 4-19 [facility] Comment on above: Performed By: #### L 501.5200, L501.9520, L501.2300, L500.4050, L100.0100 #### [facility] [address] [place], [address] Electrocardiogram reportOrde red By: Pato Simmons on 01-18-2025 EKG study [facility] Cardiovascular Services [address] [place] [address] 12 Lead EKG 01/17/25 0528 MR#: [id number] Acct: [id number] Name: SAHARA MELÉNDEZ Rep #:[id number] : 1945 79 From: Pato dugan MD Attending Dr: DO Brittani Riley tatus: ADM IN Ordering Dr: Jacinto Flores MD Date: 01/17/25 Location: [facility] Sex: F C Admitted: 01/17/25 Test Reason : SOB Blood Pressure : */* mmHG Vent. Rate : 81 BPM Atrial Rate : 81 BPM P-R Int : 160 ms QRS Dur : 84 ms QT Int : 472 ms P-R-T Axes : 37 30 10 degrees QTcB Int : 548 ms Sinus rhythm with frequent Premature ventricular complexes and Premature atrial complexes Nonspecific ST abnormality Prolonged QT Abnormal ECG Confirmed by Pato Simmons ([id number]), senior editor CHRIS OROZCO ([id number]) on 01/18/2025 12:18:59 PM Referred By: Confirmed By: Pato Simmons 01/18/25 1219 Date _ Pato Simmons MD CC: Dr. Jacinto Flores MD; Dr. Veronica Louise DO; Dr. Rosendo Brown MD ~ Signed [facility] Work Phone: Eosinophil percentageOrdered By: Veronica Louise on 01-18-2025 Eosinophils/100 WBC (Bld) 2.5 % 0-5 [facility] Erythrocyte folate measureme nt with hematocritOrdered By: Veronica Louise on 01-18-2025 Hematocrit (Bld) [Volume fraction] 39.1 % 34.0-46.6 [facility] Gastric Emptying Studyon Gastric Emptying Study [facility] Imaging Services [address] [place] [address] Gastric Emptying Study MR#: [id number] Acct: [id number] Name: SAHARA MELÉNDEZ Rep #: [id number] : 1945 F 79 From: Dhara Wallis PCP: Dr. Rosendo Brown MD Status: ADM IN Study: Gastric Emptying Study Date of Exam: 01/18/25 Exam# [id number] Ordering Dr: Veronica Louise DO PROCEDURE: GASTRIC EMPTYING STUDY 01/18/2025 REASON FOR EXAM: NAUSEA COMPARISON: None. TECHNIQUE: The patient ingested a semi solid meal of oatmeal. There was no vomiting postprandially. Anterior and posterior planar images of the upper abdomen were obtained for a total of 60 minutes. Regions of interest were drawn, and a geometric mean was used to calculate a ledi-mfowtghn-qyixi. Medications taken in the past 24 hours that may affect gastric emptying: None RADIOPHARMACEUTICAL: Oral administration, with oatmeal, 1.2 mCi technetium 99 M sulfur colloid. FINDINGS: During the time of imaging, gastroesophageal reflux was not visualized. Linear fit gastric emptying half-time of 27.2 minutes. Gastric emptying at 11.5 minutes of 28%, at 29.5 minutes of 70%, and at 59.5 minutes of 91%. NM/Gastric Emptying Study IMPRESSION: Normal semi solid phase gastric emptying. Reading Location: [place] [address] CC: Dr. Veronica Louise DO; Dr. Rosendo Brown MD Grid Inspector: Signed Normal [facility] Immature granulocytes/100 WB C Auto (Bld)Ordered By: Veronica Louise on 01-18-2025 Immature granulocytes/100 WBC (Bld) 0.400 % 0.0-0.9 [facility] Comment on above: IG% - Immature Granu locytes (promyelocytes, myelocytes and metamyelocytes) > 1% indicates that a LEFT SHIFT is Present. Magnesiumon 01-18-2025 Magnesium [Mass/Vol] 2.1 mg/dL Normal 1.5-2.2 [facility] Comment on above: Performed By: #### L 501.5200, L501.9520, L501.2300, L500.4050, L100.0100 #### [facility] [address] [place] [address]. [place], [address] Magnesium measurement (mass/ volume)Ordered By: Veronica Louise on 01-18-2025 Magnesium (Unsp spec) [Mass/Vol] 2.1 mg/dL 1.5-2.2 [facility] Monocyte percentageOrdered B y: Veronica Louise on 01-18-2025 Monocytes/100 WBC (Bld) 10.7 % High 0-10 [facility] Neutrophil percentageOrdered By: Veronica Louise on 01-18-2025 Neutrophils/100 WBC (Bld) 67.9 % 47-70 [facility] Nucleated red blood cell per centageOrdered By: Veronica Louise on 01-18-2025 Nucleated RBC/100 WBC (Bld) [Ratio] 0 % 0-5 [facility] Phosphoruson 01-18-2025 Phosphate [Mass/Vol] 4.0 mg/dL Normal 2.7-4.5 [facility] Comment on above: Performed By: #### L 501.5200, L501.9520, L501.2300, L500.4050, L100.0100 #### [facility] [address] [facility] [place], [address] TSH DL <= 0.005 mIU/L QnOrde red By: Veronica Louise on 01-18-2025 TSH Qn 3.120 uIU/mL 0.300-4.20 0 [facility] Thyroid Stim Hormone (TSH)on 01-18-2025 TSH 3.120 uIU/mL Normal 0.300-4.20 0 [facility] Comment on above: Performed By: #### L 501.5200, L501.9520, L501.2300, L500.4050, L100.0100 #### [facility] [address] [place], [address] 12 Lead EKGon 01-17-2025 12 Lead EKG [facility] Cardiovascular Services [address] [place] [address] 12 Lead EKG 01/17/25 0528 MR#: [id number] Acct: [id number] Name: SAHARA MELÉNDEZ Rep #: [id number] : 1945 79 From: Pato Simmons MD Attending Dr: Dr. Veronica Louise, DO Status: ADM I N Ordering Dr: Jacinto Flores MD Date: 01/17/25 Location: [facility] Sex: F C Admitted: 01/17/25 Test Reason : SOB Blood Pressure : */* mmHG Vent. Rate : 81 BPM Atrial Rate : 81 BPM P-R Int : 160 ms QRS Dur : 84 ms QT Int : 472 ms P-R-T Axes : 37 30 10 degrees QTcB Int : 548 ms Sinus rhythm with frequent Premature ventricular complexes and Premature atrial complexes Nonspecific ST abnormality Prolonged QT Abnormal ECG Confirmed by Pato Simmons ([id number]), senior editor CHRIS OROZCO ([id number]) on 01/18/2025 12:18:59 PM Referred By: Confirmed By: Pato Simmons 01/18/251218 Date Pato Simmons MD CC: Dr. Jacinto Flores MD; Dr. Veronica Louise DO; Dr. Rosendo Brown MD Signed Normal [facility] Absolute lymphocyte countOrd ered By: Jacinto Flores on 01-17-2025 Lymphocytes Auto (Unsp spec) [#/Vol] 1.44 10*3/uL 0.83-4.51 [facility] Absolute neutrophil countOrd ered By: Jacinto Flores on 01-17-2025 Neutrophils (Bld) [#/Vol] 6.2 10*3/uL 2.0-7.7 [facility] Anion gap in Serum or Plasma Ordered By: Jacinto Flores on 01-17-2025 Anion gap [Moles/Vol] 10 mmol/L 5-15 [facility] Automated lymphocyte count a s percentage of total leukocytesOrdered By: Jacinto Flores on 01-17-2025 Lymphocytes/100 WBC Auto (Unsp spec) 16.5 % Low 19-41 [facility] BUN/creatinine ratioOrdered By: Jacinto Flores on 01-17-2025 Urea nitrogen/Creatinine [Mass ratio] 29.8 mg/mg High 10- [facility] Basic Metabolic Profile (BMP )on 01-17-2025 BUN/CRE 29.8 RATIO High 10- [facility] Comment on above: Performed By: #### L 503.7505, L501.4021, L100.0100, L500.2500 ####[facility] [address] [place], [place], [address] Calcium [Mass/Vol] 9.1 mg/dL Normal 7.6-11.0 [facility] Comment on above: Performed By: #### L 503.7505, L501.4021, L100.0100, L500.2500 ####[facility] [address] [place], [address] Chloride [Moles/Vol] 107 mmol/L Normal 98-108 [facility] Comment on above: Performed By: #### L 503.7505, L501.4021, L100.0100, L500.2500 ####[facility] [address] [place], [address] CO2 [Moles/Vol] 23.4 mmol/L Normal 21.0-32.0 [facility] Comment on above: Performed By: #### L 503.7505, L501.4021, L100.0100, L500.2500 ####[facility] [address] [place], [address] Creatinine [Mass/Vol] 0.63 mg/dL Low 0.70-1.20 [facility] Comment on above: Performed By: #### L 503.7505, L501.4021, L100.0100, L500.2500 ####[facility] [address] [place], [address] ECRCL 65.07 ml/min Normal 50-250 [facility] Comment on above: Performed By: #### L 503.7505, L501.4021, L100.0100, L500.2500 ####[facility] [address] [place], [address] GAP 10 Normal 5-15 [facility] Comment on above: Performed By: #### L 503.7505, L501.4021, L100.0100, L500.2500 ####[facility] [address] [place], [address] GFR/1.73 sq M.predicted among non-blacks MDRD (S/P/Bld) [Vol rate/Area] 91 mL/min/{1.73_m2} Normal >60 [facility] Comment on above: Result Comment: mL/m in/1.73m2 CKD-EPI Creatinine Equation (2020) Performed By: #### L 503.7505, L501.4021, L100.0100, L500.2500 ####[facility] [address] [place], [address] Glucose [Mass/Vol] 125 mg/dL High 70-99 [facility] Comment on above: Performed By: #### L 503.7505, L501.4021, L100.0100, L500.2500 ####[facility] [address] [place], [address] Potassium [Moles/Vol] 3.7 mmol/L Normal 3.3-5.1 [facility] Comment on above: Performed By: #### L 503.7505, L501.4021, L100.0100, L500.2500 ####[facility] [address] [place], [address] Sodium [Moles/Vol] 141 mmol/L Normal 133-145 [facility] Comment on above: Performed By: #### L 503.7505, L501.4021, L100.0100, L500.2500 ####[facility] [address] [place], [address] Urea nitrogen [Mass/Vol] 19 mg/dL Normal 4-19 [facility] Comment on above: Performed By: #### L 503.7505, L501.4021, L100.0100, L500.2500 ####[facility] [address] [place], [address] Basophil percentageOrdered B y: Jacinto Flores on 01-17-2025 Basophils/100 WBC (Bld) 0.7 % 0-1 [facility] CBC W/Diff, Automatedon 05 Absolute Lymph 1.44 X10 3/uL Normal 0.83-4.51 [facility] Comment on above: Performed By: #### L 503.7505, L501.4021, L100.0100, L500.2500 ####[facility] [address] [place], [address] Absolute Neut 6.2 X10 3/uL Normal 2.0-7.7 [facility] Comment on above: Performed By: #### L 503.7505, L501.4021, L100.0100, L500.2500 ####[facility] [address] [place], [address] Basophils/100 WBC (Bld) 0.7 % Normal 0-1 [facility] Comment on above: Performed By: #### L 503.7505, L501.4021, L100.0100, L500.2500 ####[facility] [address] [place], [address] Eosinophils/100 WBC (Bld) 3.0 % Normal 0-5 [facility] Comment on above: Performed By: #### L 503.7505, L501.4021, L100.0100, L500.2500 ####[facility] [address] [place], [address] Erythrocyte distribution width (RBC) [Ratio] 14.8 % High 11.6-14.6 [facility] Comment on above: Performed By: #### L 503.7505, L501.4021, L100.0100, L500.2500 ####[facility] [address] [place], [address] Hematocrit (Bld) [Volume fraction] 35.3 % Low 37-47 [facility] Comment on above: Performed By: #### L 503.7505, L501.4021, L100.0100, L500.2500 ####[facility] [address] [place], [address] Hemoglobin (Bld) [Mass/Vol] 11.7 g/dL Low 12.0-15.0 [facility] Comment on above: Performed By: #### L 503.7505, L501.4021, L100.0100, L500.2500 ####[facility] [address] [place], [address] IG% 0.300 Normal 0.0-0.9 [facility] Comment on above: Result Comment: IG% - Immature Granulocytes (promyelocytes, myelocytes and metamyelocytes) > 1% indicates that a LEFT SHIFT is Present. Performed By: #### L 503.7505, L501.4021, L100.0100, L500.2500 ####[facility] [address] [place], [address] Lymphocytes/100 WBC (Bld) 16.5 % Low 19-41 [facility] Comment on above: Performed By: #### L 503.7505, L501.4021, L100.0100, L500.2500 ####[facility] [address] [place], [address] MCH (RBC) [Entitic mass] 30.0 pg Normal 27.0-32.0 [facility] Comment on above: Performed By: #### L 503.7505, L501.4021, L100.0100, L500.2500 ####[facility] [address] [place], [address] MCHC (RBC) [Mass/Vol] 33.1 g/dL Normal 32-36 [facility] Comment on above: Performed By: #### L 503.7505, L501.4021, L100.0100, L500.2500 ####[facility] [address] [place], [address] MCV (RBC) [Entitic vol] 90.5 fL Normal 81-99 [facility] Comment on above: Performed By: #### L 503.7505, L501.4021, L100.0100, L500.2500 ####[facility] [address] [place], [address] Monocytes/100 WBC (Bld) 8.2 % Normal 0-10 [facility] Comment on above: Performed By: #### L 503.7505, L501.4021, L100.0100, L500.2500 ####[facility] [address] [place], [address] Neutrophils/100 WBC (Bld) 71.3 % High 47-70 [facility] Comment on above: Performed By: #### L 503.7505, L501.4021, L100.0100, L500.2500 ####[facility] [address] [place], [address] Nucleated RBC (Bld) [#/Vol] 0 10*3/uL Normal 0-5 [facility] Comment on above: Performed By: #### L 503.7505, L501.4021, L100.0100, L500.2500 ####[facility] [address] [place], [address] Platelet mean volume (Bld) [Entitic vol] 10.2 fL Normal 6.2-12.0 [facility] Comment on above: Performed By: #### L 503.7505, L501.4021, L100.0100, L500.2500 ####[facility] [address] [place], [address] Platelets (Bld) [#/Vol] 233 10*3/uL Normal 150-450 [facility] Comment on above: Performed By: #### L 503.7505, L501.4021, L100.0100, L500.2500 ####[facility] [address] [place], [address] RBC (Bld) [#/Vol] 3.90 10*6/uL Low 4.2-5.4 [facility] Comment on above: Performed By: #### L 503.7505, L501.4021, L100.0100, L500.2500 ####[facility] [address] [place], [address] RDW SD 47.9 fl High 35.1-43.9 [facility] Comment on above: Performed By: #### L 503.7505, L501.4021, L100.0100, L500.2500 ####[facility] [address] [place], [address] WBC (Bld) [#/Vol] 8.7 10*3/uL Normal 4.4-11.0 [facility] Comment on above: Performed By: #### L 503.7505, L501.4021, L100.0100, L500.2500 ####[facility] [address] [place], [address] Carbon dioxide, total [Moles /volume] in Central venous bloodOrdered By: Jacinto Flores on 01-17-2025 CO2 [Moles/Vol] 23.4 mmol/L 21.0-32.0 [facility] Chest 1 View (Portable)on Chest 1 View (Portable) [facility] Imaging Services [address] [place] [address] Chest 1 View (Portable) MR#: [id number] Acct: [id number] Name: SAHARA MELÉNDEZ Rep #: [id number] : 1945 F 79 From: Pato Lin i, MD PCP: Dr. Rosendo Brown MD Status: PRE ER Study: Chest 1 View (Portable) Date of Exam: 01/17/25 Exam# [id number] Ordering Dr: Jacinto Flores MD PROCEDURE: CHEST 1 VIEW (PORTABLE) N/A REASON FOR EXAM: DYSPNEA TECHNIQUE: Frontal view of the chest. COMPARISON: Chest x-ray dated 01/16/2025. FINDINGS: The cardiac silhouette is enlarged. Calcified mitral annular ring is present. There is thickening noted within the bilateral pulmonary interstitium. This appears worse since 01/16/2025, indicating pulmonary vascular congestion. No large effusions are present. RAD/Chest 1 View (Portable) IMPRESSION: Worsening pulmonary vascular congestion. Follow-up until clearing is recommended. Reading Location: [id number] CC: Dr. Jacinto Flores MD; Dr. Rosendo Brown MD Grid Inspector: Signed Normal [facility] Chloride assayOrdered By: Irene Flores on 01-17-2025 Chloride [Moles/Vol] 107 mmol/L 98-108 [facility] Consultation - Cardiologyon 01-17-2025 Consultation - Cardiology [facility] Medical Records Department [address] [place] [address] Consultation - Cardiology 01/17/25 0743 MR#: [id number] Acct: [id number] Name: SAHARA MELÉNDEZ Rep #: [id number] : 1945 79 From: Pato Simmons MD PCP: Dr. Rosendo Brown MD Status:REG ER Location: ED Assessment Plan Assessment/Plan (1) Paroxysmal atrial fibrillation: PLAN: Patient was documented to be in atrial fibrillation on 01/16/2025 in the [place] [facility] office at a heart rate of 145 bpm. Metoprolol was increased to 100 mg twice daily but the patient became progressively more short of breath and presented to the emergency department early on the morning of 01/17/2025. The patient's chest x-ray in the emergency department compared to the chest x-ray yesterday shows increasing pulmonary congestion. The patient spontaneously reverted into sinus rhythm and then flipped in and out of atrial fibrillation while being monitored in the emergency department. Sinus rate was controlled in the 70 bpm there were PVCs noted the patient has a history of recurrent PVCs and nonsustained VT remotely. The patient also complains of chronic diarrhea and nausea for the last several weeks. She does have a history of celiac disease and is followed by Dr. David. Patient also has a history of mitral valve prolapse with moderate mitral regurgitation. She is obese and difficult to auscultate her cardiovascular exam but it does appear she has a faint 1/6 systolic murmur and a audible click. Last echocardiogram was in 2022 which showed normal LV function EF of 60% and moderate mitral regurgitation with bileaflet prolapse. Given the patient's paroxysms of atrial fibrillation, her progressive dyspnea on exertion, her pulmonary congestion, and signs and symptoms of decreased cardiac output syndrome, I would recommend that we place her on sotalol 80 mg twice daily, replace any potassium as her potassium is 3.7 and she is receiving diuretics, check an ECG for QT interval 2 to 3 hours after the first sotalol dose and then every morning. Will hold the metoprolol for the time being. Will repeat an echo to reevaluate the LV function and valvular heart disease. (2) Dyspnea on exertion: PLAN: This is probably multifactorial related to her potential for worsening mitral regurgitation and/or LV dysfunction, her paroxysms of atrial fibrillation, and her body habitus. Will continue with gentle diuresis her renal function is normal monitor her potassium and I's and O's. (3) Nonrheumatic mitral (valve) prolapse: PLAN: An echocardiogram be done to reevaluate the patient's known moderate mitral valve regurgitation related to her bileaflet prolapse. PLAN: Plan 1. Will add sotalol 80 mg twice daily. 2. Check QT interval with ECG in 2-3 hours. 3. ECG every morning while on sotalol in the hospital. 4. 2D echocardiogram to evaluate structural heart disease and LV function. 5. Continue with diuresis monitoring electrolytes and renal function. 6. Defers further evaluation of the nausea and GI issues to the primary service. HPI Consult Data Date of Consult: 01/17/25 HPI Narrative Reason for Consultation: Paroxysmal atrial fibrillation with rapid ventricular response HPI Narrative: SAHARA MELÉNDEZ, is a 79 F who presents with a 2-week history of progressive shortness of breath and dyspnea on exertion. This has been worsening over the last several days. She was evaluated in the [facility] office yesterday and was found to be in atrial fibrillation with a rapid ventricular spots of 145 bpm. The patient's metoprolol was increased to 100 mg twice daily and she was set up for elective direct-current cardioversion on January 18, 2025, tomorrow. The patient presented to the emergency room early this morning complaining of increasing shortness of breath chest x-ray was consistent with pulmonary congestion heart rate was in the 120 bpm range in atrial fibrillation. The patient is been on long-term oral oral anticoagulation and she has not missed any dosing. The plan was to cardiovert in the emergency department but she spontaneously reverted into sinus rhythm. Heart rate was in the 70 bpm in sinus rhythm but then she had a recurrence of her atrial fibrillation and has been flipping in and out of atrial fib. The patient also has multiple somatic complaints she has a history of chronic diarrhea she apparently was told that she had white blood cells in her stool and was rereferred to Dr. David due to her nausea and diarrhea. Patient denies any chest pain she does have a history of mitral valve prolapse with moderate mitral regurgitation and normal LV function on an echocardiogram done February 2023. Patient also had a negative stress test February 2023 which showed sinus rhythm at 66 bpm and was negative for any ischemia. The patient denies any syncope or near syncope. She does (more content not included)... Normal [facility] Echo Completeon 01-17-2025 Echo Complete [facility] Cardiovascular Services [address] [place] [address] Echo Complete 01/17/25 1034 MR#: [id number] Acct: [id number] Name: SAHARA MELÉNDEZ Rep #: [id number] : 1945 79 From: Liat Hale MD Attending Dr: Dr. Veronica Louise, Status: ADM I N Ordering Dr: Veronica Louise DO Date: 01/17/25 Location: U Sex: F C Admitted: 01/17/25 Reason For Study Reason For Study: VALVE EVAL Procedure This was a 2D Doppler, Color Flow transthoracic echocardiogram. Exam performed in department. Left Ventricle Normal LV size. Mild concentric left ventricular hypertrophy. The LV systolic function is normal. EF is 60 %. Diastolic dysfunction. Right Ventricle Normal right ventricle. Atria The left atrium is severely enlarged. The right atrium is moderately enlarged. Mitral Valve Severe mitral annular calcification. Moderate to severe posteriorly directed mitral valve regurgitation. Tricuspid Valve Mild tricuspid valve insufficiency. Right ventricular systolic pressure estimated to be 50 mmHg. Aortic Valve Trivial aortic valve insufficiency. Great Vessels Normal sized aortic root. Pericardium/Pleural No pericardial effusion. MMode/2D Measurements Calculations LVIDd: 5.4 cm IVSd: 1.2 cm LVOT diam: 2.0 cm LVIDs: 5.1 cm LVPWd: 1.2 cm LVOT area: 3.3 cm2 RVDd: 3.8 cm FS: 5.3 % Ao root diam: 3.1 cm LAV(MOD-bp): 108.4 ml LVAd ap4: 28.7 cm2 LAV(MOD-bp) Indexed: 54.0 ml/m2 LVLd ap4: 7.9 cm LAV(MOD-sp2): 100.5 ml EDV(MOD-sp4): 87.9 ml LAV(MOD-sp4): 105.9 ml EDV(sp4-el): 89.3 ml LVAs ap4: 18.7 cm2 LVLs ap4: 6.6 cm ESV(MOD-sp4): 45.4 ml ESV(sp4-el): 45.3 ml EF(MOD-sp4): 48.3 % EF(sp4-el): 49.3 % SV(MOD-sp4): 42.5 ml SV(sp4-el): 44.0 ml LA A4 area: 31.7 cm2 SI(MOD-sp4): 21.2 ml/m2 LA dimension(2D): 5.4 cm RA A4 area: 24.0 cm2 Doppler Measurements Calculations MV E max kayla: 116.8 cm/sec Ao V2 max: 107.6 cm/sec LV V1 max: 85.5 cm/sec Ao max P.6 mmHg LV V1 max P.9 mmHg Ao V2 mean: 72.7 cm/sec LV V1 mean P.5 mmHg Ao mean P.4 mmHg LV V1 mean: 58.2 cm/sec Ao V2 VTI: 28.9 cm LV V1 VTI: 22.3 cm AV (velocity ratio): 0.77 YANET(I,D): 2.5 cm2 YANET(V,D): 2.6 cm2 SV(LVOT): 73.1 ml PA V2 max: 93.1 cm/sec TR max kayla: 294.7 cm/sec PA V2 mean: 72.3 cm/sec TR max P.7 mmHg ECHO/Echo Complete Interpretation Summary Mild concentric left ventricular hypertrophy. The LV systolic function is normal. EF is 60 %. Diastolic dysfunction. The left atrium is severely enlarged. The right atrium is moderately enlarged. Severe mitral annular calcification. Moderate to severe posteriorly directed mitral valve regurgitation. Mild tricuspid valve insufficiency. Right ventricular systolic pressure estimated to be 50 mmHg. Ordering Physician: Veronica Louise Referring Physician: ROSENDO BROWN Performed By: Zarina Caban RCS 01/17/25 1231 Date Liat Hale MD CC: Dr. Veronica Louise DO; Dr. Rosendo Brown MD Date Dictated: 01/17/25 1034 Date Transcribed: 01/17/25 1231 Grid Inspector: Signed Normal [facility] Echocardiogram study reportO rdered By: Liat Hale on 01-17-2025 Study report [facility] Cardiovascular Services [address] [place] [address] Echo Complete 01/17/25 1034 MR#: [id number] Acct: [id number] Name: SAHARA MELÉNDEZ Rep #:[id number] : 1945 79 From: Liat Hale MD Attending Dr: Dr. Veronica Louise DO S tatus: ADM IN Ordering Dr: Veronica Louise DO Date: 05/06 Location: [facility] Sex: F C Admitted: 01/17/25 Reason For Study Reason For Study: VALVE EVAL Procedure This was a 2D Doppler, Color Flow transthoracic echocardiogram. Exam performed in department. Left Ventricle Normal LV size. Mild concentric left ventricular hypertrophy. The LV systolic function is normal. EF is 60 %. Diastolic dysfunction. Right Ventricle Normal right ventricle. Atria The left atrium is severely enlarged. The right atrium is moderately enlarged. Mitral Valve Severe mitral annular calcification. Moderate to severe posteriorly directed mitral valve regurgitation. Tricuspid Valve Mild tricuspid valve insufficiency. Right ventricular systolic pressure estimated to be 50 mmHg. Aortic Valve Trivial aortic valve insufficiency. Great Vessels Normal sized aortic root. Pericardium/Pleural No pericardial effusion. MMode/2D Measurements & Calculations LVIDd: 5.4 cm IVSd: 1.2 cm LVOT diam: 2.0 cm LVIDs: 5.1 cm LVPWd: 1.2 cm LVOT area: 3.3 cm2 RVDd: 3.8 cm FS: 5.3 % Ao root diam: 3.1 cm LAV(MOD-bp): 108.4 ml LVAd ap4: 28.7 cm2 LAV(MOD-bp) Indexed: 54.0 ml/m2 LVLd ap4: 7.9 cm LAV(MOD-sp2): 100.5 ml EDV(MOD-sp4): 87.9 ml LAV(MOD-sp4): 105.9 ml EDV(sp4-el): 89.3 ml LVAs ap4: 18.7 cm2 LVLs ap4: 6.6 cm ESV(MOD-sp4): 45.4 ml ESV(sp4-el): 45.3 ml EF(MOD-sp4): 48.3 % EF(sp4-el): 49.3 % SV(MOD-sp4): 42.5 ml SV(sp4-el): 44.0 ml LA A4 area: 31.7 cm2 SI(MOD-sp4): 21.2 ml/m2 LA dimension(2D): 5.4 cm RA A4 area: 24.0 cm2 Doppler Measurements & Calculations MV E max kayla: 116.8 cm/sec Ao V2 max: 107.6 cm/sec LV V1 max: 85.5 cm/sec Ao max P.6 mmHg LV V1 max P.9 mmHg Ao V2 mean: 72.7 cm/sec LV V1 mean P.5 mmHg Ao mean P.4 mmHg LV V1 mean: 58.2 cm/sec Ao V2 VTI: 28.9 cm LV V1 VTI: 22.3 cm AV (velocity ratio): 0.77 YANET(I,D): 2.5 cm2 YANET(V,D): 2.6 cm2 SV(LVOT): 73.1 ml PA V2 max: 93.1 cm/sec TR max kayla: 294.7 cm/sec PA V2 mean: 72.3 cm/sec TR max P.7 mmHg ECHO/Echo Complete Interpretation Summary Mild concentric left ventricular hypertrophy. The LV systolic function is normal. EF is 60 %. Diastolic dysfunction. The left atrium is severely enlarged. The right atrium is moderately enlarged. Severe mitral annular calcification. Moderate to severe posteriorly directed mitral valve regurgitation. Mild tricuspid valve insufficiency. Right ventricular systolic pressure estimated to be 50 mmHg. Ordering Physician: Veronica Louise Referring Physician: ROSENDO BROWN Performed By: Zarina Caban RCS 01/17/25 1231 Date _ Liat Hale MD CC: Dr. Veronica Louise DO; Dr. Rosendo Brown MD ~ Date Dictated: 01/17/25 1034 Date Transcribed: 01/17/25 1231 Grid Inspector: Signed [facility] Work Phone: Emergency Department Summary on 01-17-2025 Emergency Department Summary [facility] Medical Records Department [address] [place] [address] Emergency Department Summary 01/17/25 MR#: [id number] Acct: [id number] Name: SAHARA MELÉNDEZ Rep #: [id number] : 1945 79 From: Jacinto Flores MD PCP: Dr. Rosendo Brown MD Status:REG ER Location: ED HPI History of Present Illness Chief Complaint: Shortness of Breath Informant: patient, spouse/S.O. and EMS Narrative Narrative: 79-year-old female presenting to the ER for dyspnea. This has been going on for about a week. Presenting at around 5:30 AM because it is worse. She was seen in the cardiology office yesterday for this, she has a history of paroxysmal atrial fibrillation, she was in A-fib yesterday, thought to be in it for a while and causing her to be the rapid ventricular response and dyspneic from that, so they plan on cardioversion tomorrow. She denies having any chest pain. No cough or fevers. She does not feel palpitations. She has been very tired. Maybe some swelling in her legs she thinks. [facility] Medical History Dyspnea on exertion Wears glasses High cholesterol TIA (transient ischemic attack) History of IBS History of diverticulitis History of Holter monitoring History of atrial fibrillation Cardiology follow-up encounter Wears partial dentures Arthritis Interstitial cystitis Bladder disease Easy bruising PONV (postoperative nausea and vomiting) Migraine headache Dietary restriction History of hiatal hernia Gastric reflux Non-smoker Shortness of breath on exertion History of edema History of stress test History of echocardiogram Femur fracture, left Esophagitis IBS (irritable bowel syndrome) Hepatic cyst Renal cyst Non-rheumatic mitral regurgitation Nonrheumatic mitral (valve) prolapse Ventricular ectopy Colitis Fibromyalgia Diverticulosis Anxiety and depression Diarrhea Mitral valve prolapse syndrome Home Medications ???Medication ???Instructions ???Recorded ???Last Taken ???Type multivitamin 1 tab PO DAILY health maintenance 01/20/23 01/20/23 History ascorbic acid (vitamin C) 500 mg 500 mg PO DAILY 03/18/23 Unknown H istory tablet (C-500) cranberry 500 mg capsule 500 mg PO TID 03/18/23 Unknown His tory atorvastatin 40 mg tablet 40 mg PO QHS 05/19/23 Unknown Hist ory lactobacillus combination no.9 4 4,000 mmu cells PO DAILY 05/19/23 Unknown History billion cell capsule (Adult 50 Plus Probiotic) acetaminophen 500 mg tablet 1,000 mg PO DAILY pain 01/25/24 Un known History simethicone 80 mg chewable tablet 80 mg PO BID 01/25/24 Unknown His tory (Gas Relief (simethicone)) ubrogepant 100 mg tablet (Ubrelvy) mg PO .0prn PRN headache 4 Unknown History escitalopram oxalate 5 mg tablet 5 mg PO DAILY 05/10/24 Unknown His tory (Lexapro) nitroglycerin 0.4 mg sublingual 0.4 mg sublingual Q5-15M PRN Chest 07/26/24 Unknown Rx tablet Pain #25 tabs apixaban 5 mg tablet (Eliquis) 5 mg PO BID #180 tabs 11/08/24 Unk nown Rx metoprolol tartrate 50 mg tablet 100 mg (2 x 50 mg) PO BID #180 tab s 01/16/25 Unknown Rx Allergy/AdvReac Type Severity Reaction Status Date / Time ciprofloxacin (From Cipro) Allergy Hives Verified 01/17/25 05:21 ciprofloxacin HCl (From Allergy Hives Verified 01/17/25 05:21 Cipro) atropine (From Lomotil) AdvReac Nausea Verified 01/17/25 05:21 dicyclomine (From Bentyl) AdvReac Other Verified 01/17/25 05:21 diphenoxylate (From Lomotil) AdvReac Nausea Verified 01/17/25 05:21 erythromycin base AdvReac Vomiting Verified 01/17/25 05:21 (Erythromycin Base) hydromorphone HCl (From AdvReac anxiety Verified 01/17/25 05:21 Dilaudid) latex AdvReac Rash Verified 01/17/25 05:21 prochlorperazine edisylate AdvReac anxiety Verified 01/17/25 05:21 (From Compazine) prochlorperazine maleate AdvReac anxiety Verified 01/17/25 05:21 (From Compazine) Family History Father CAD (coronary artery disease) Mother CVA (cerebral vascular accident) Diabetes Sister Heart disease Valvular-mitral Grandmother CAD (coronary artery disease) Grandfather CAD (coronary artery disease) Surgical History History of dilation of urethra History of breast surgery History of esophagogastroduodenoscopy (EGD) History of colonoscopy History of surgery on lower extremity H/O hysterectomy with unilateral oophorectomy History of tonsillectomy History of right knee joint replacement History of left knee replacement History of colon surgery History of cholecystectomy History of appendectomy Social History Smoking Status: Never smoker alcohol intake: never (more content not included)... Normal [facility] Eosinophil percentageOrdered By: Jacinto Flores on 01-17-2025 Eosinophils/100 WBC (Bld) 3.0 % 0-5 [facility] Erythrocyte distribution wid th ratioOrdered By: Jacinto Flores on 01-17-2025 Erythrocyte distribution width (RBC) [Ratio] 14.8 % High 11.6-14.6 [facility] Erythrocyte distribution wid th standard deviationOrdered By: Jacinto Flores on 01-17-2025 Erythrocyte distribution width (RBC) [Ratio] 47.9 fl High 35.1-43.9 [facility] Glomerular filtration rate ( GFR) estimation/1.73 sq m using serum, plasma, or whole bOrdered By: Jacinto Flores on 01-17-2025 GFR/1.73 sq M.predicted among non-blacks MDRD (S/P/Bld) [Vol rate/Area] 91 mL/min/{1.73_m2} >60 [facility] Comment on above: mL/min/1.73m2 CKD-EP I Creatinine Equation (2020) H AND P Exam - [facility] 01-17-2025 H&P Exam - Hospitalist [facility] Medical Records Department [address] [place] [address] H P Exam - Hospitalist 01/17/25 0715 MR#: [id number] Acct: [id number] Name: SAHARA MELÉNDEZ Rep #: [id number] : 1945 79 From: Veronica Louise DO PCP: Dr. Rosendo Brown MD Status:ADM IN Location: [facility] [id number] HPI - General General Date of Admission: 01/17/25 Date of Service: 01/17/25 Chief Complaint: Shortness of breath HPI Narrative SAHARA MELÉNDEZ, is a 79 F who presented to the emergency department [facility] on 01/17/2025 with a chief complaint of shortness of breath. She reported been ongoing for about a week and she came in around 5:30 in the morning because it had clinically gotten worse. 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 She was noted to be in A-fib yesterday and it was thought that she had been in this for possibly a while with RVR and was distant from that so they plan to cardioversion 4 01/18/2025. Patient thinks she may have had some swelling in her legs but denies any fever or chills. She does state that she has nausea just about every morning now with no vomiting but it resolves after about 4 hours. She does follow with Dr. David for celiac's disease at baseline and her last visit with him was in October. She states she has not notified him as of yet for this. She has appointment to see him on Tuesday. She does have a known history of mitral valve disease and the case was discussed with cardiology prior to admission and they thought maybe her mitral valve disease was getting worse causing worsening atrial fibrillation. They suggest sotalol rather than cardioversion. Her daughter also interjects that over the last few months her memory has been slowly getting worse. Vital signs emergency department show a temperature of 97.6, heart rate 89, respiratory rate was 18, blood pressure was 145/98 and pulse ox was 93% on room air. CBC showed a mild chronic stable anemia but was otherwise unremarkable. Chemistry panel was unremarkable other than hyperglycemia with a glucose level of 125. Troponin has been unremarkable. BNP was elevated at 2630. Her chest x-ray did appear to be wet with bilateral congestion related to volume overload and EKG showed A-fib with RVR. She was dosed with sotalol 80 mg x 1 dose in emergency department at the recommendation of cardiology and was given 1 dose of Lasix. [facility] Medical History Dyspnea on exertion Wears glasses High cholesterol TIA (transient ischemic attack) History of IBS History of diverticulitis History of Holter monitoring History of atrial fibrillation Cardiology follow-up encounter Wears partial dentures Arthritis Interstitial cystitis Bladder disease Easy bruising PONV (postoperative nausea and vomiting) Migraine headache Dietary restriction History of hiatal hernia Gastric reflux Non-smoker Shortness of breath on exertion History of edema History of stress test History of echocardiogram Femur fracture, left Esophagitis IBS (irritable bowel syndrome) Hepatic cyst Renal cyst Non-rheumatic mitral regurgitation Nonrheumatic mitral (valve) prolapse Ventricular ectopy Colitis Fibromyalgia Diverticulosis Anxiety and depression Diarrhea Mitral valve prolapse syndrome Home Medications ???Medication ???Instructions ???Recorded ???Last Taken ???Type multivitamin 1 tab PO DAILY health maintenance 01/20/23 01/20/23 History ascorbic acid (vitamin C) 500 mg 500 mg PO DAILY 03/18/23 Unknown H istory tablet (C-500) cranberry 500 mg capsule 500 mg PO TID 03/18/23 Unknown His tory atorvastatin 40 mg tablet 40 mg PO QHS 05/19/23 Unknown Hist ory lactobacillus combination no.9 4 4,000 mmu cells PO DAILY 05/19/23 Unknown History billion cell capsule (Adult 50 Plus Probiotic) acetaminophen 500 mg tablet 1,000 mg PO DAILY pain 01/25/24 Un known History simethicone 80 mg chewable tablet 80 mg PO BID 01/25/24 Unknown His tory (Gas Relief (simethicone)) ubrogepant 100 mg tablet (Ubrelvy) mg PO .0prn PRN headache 4 Unknown History escitalopram oxalate 5 mg tablet 5 mg PO DAILY 05/10/24 Unknown His tory (Lexapro) nitroglycerin 0.4 mg sublingual 0.4 mg sublingual Q5-15M PRN Chest 07/26/24 Unknown Rx tablet Pain #25 tabs apixaban 5 mg tablet (Eliquis) 5 mg PO BID #180 tabs 11/08/24 Unk nown Rx metoprolol tartrate 50 mg tablet 100 mg (2 x 50 mg) PO BID #180 tab s 01/16/25 Unknown Rx Allergy/AdvReac Type Severity Reaction Status Date / Time ciprofloxacin (From Cipro) Allergy Hives Verified 01/17/25 05:21 ciprofloxacin HCl (From Allergy Hives Verified 01/17/25 05:21 Cipro) atropine (From Lomotil) Ad (more content not included)... Normal [facility] Hematocrit Auto (Bld) [Volum e fraction]Ordered By: Jacinto Flores on 01-17-2025 Hematocrit (Bld) [Volume fraction] 35.3 % Low 37-47 [facility] Hemoglobin measurementOrdere d By: Jacinto Flores on 01-17-2025 Hemoglobin (Bld) [Mass/Vol] 11.7 g/dL Low 12.0-15.0 [facility] Immature granulocytes/100 WB C Auto (Bld)Ordered By: Jacinto Flores on 01-17-2025 Immature granulocytes/100 WBC (Bld) 0.300 % 0.0-0.9 [facility] Comment on above: IG% - Immature Granu locytes (promyelocytes, myelocytes and metamyelocytes) > 1% indicates that a LEFT SHIFT is Present. L499.0042on 01-17-2025 Trop T High Sen 12 ng/L Normal <=14 [facility] Comment on above: Performed By: #### L 499.0042 ####[facility] [id number] [place], [place], [address] Trop T High Sen 11 ng/L Normal <=14 [facility] Comment on above: Performed By: #### L 499.0042 ####[facility] [address] [place], [address] L499.0043on 01-17-2025 Trop T High Sen 13 ng/L Normal <=14 [facility] Comment on above: Performed By: #### L 501.5200, L501.9520, L501.2300, L500.4050, L100.0100 #### [facility] Laboratory [address] [place], [address] Trop T High Sen Normal <=14 [facility] Comment on above: Result Comment: REST ARTED THE SER. Performed By: #### L 501.5200, L501.9520, L501.2300, L500.4050, L100.0100 #### [facility] [address] [place], [address] L501.4021on 01-17-2025 Trop T High Sen 13 ng/L Normal <=14 [facility] Comment on above: Performed By: #### L 501.4021 ####[facility] [address] [place], [address] Trop T High Sen 10 ng/L Normal <=14 [facility] Comment on above: Performed By: #### L 503.7505, L501.4021, L100.0100, L500.2500 ####[facility] [address] [place], [address] L503.7505on 01-17-2025 Natriuretic peptide B (Bld) [Mass/Vol] 2630 pg/mL High <=1800 [facility] Comment on above: Result Comment: Hear t Failure Unlikely: < 300 pg/mL Heart Failure Likely < 50 Years: > 450 pg/mL 50-75 Years: > 900 pg/mL >75 Years: > 1800 pg/mL Performed By: #### L 503.7505, L501.4021, L100.0100, L500.2500 ####[facility] [address] [place], [address] MCV (mean corpuscular volume ) determinationOrdered By: Jacinto Flores on 01-17-2025 MCV (RBC) [Entitic vol] 90.5 fL 81-99 [facility] Mean corpuscular hemoglobin (MCH) determinationOrdered By: Jacinto Flores on 01-17-2025 MCH (RBC) [Entitic mass] 30.0 pg 27.0-32.0 [facility] Mean corpuscular hemoglobin concentration (MCHC) determinationOrdered By: Jacinto Flores on 01-17-2025 MCHC (RBC) [Mass/Vol] 33.1 g/dL 32-36 [facility] Mean platelet volume determi nationOrdered By: Jacinto Flores on 01-17-2025 Platelet mean volume (Bld) [Entitic vol] 10.2 fL 6.2-12.0 [facility] Monocyte percentageOrdered B y: Jacinto Flores on 01-17-2025 Monocytes/100 WBC (Bld) 8.2 % 0-10 [facility] Natriuretic peptide.B prohor edis N-Terminal [Mass/volume] in Serum or PlasmaOrdered By: Jacinto Flores on 01-17-2025 Natriuretic peptide.B prohormone N-Terminal [Mass/Vol] 2630 pg/mL High <1800 [facility] Comment on above: Heart Failure Unlike ly: < 300 pg/mLHeart Failure Likely< 50 Years: > 450 pg/mL50-75 Years: > 900 pg/mL>75 Years: > 1800 pg/mL Neutrophil percentageOrdered By: Jacinto Flores on 01-17-2025 Neutrophils/100 WBC (Bld) 71.3 % High 47-70 [facility] Nucleated red blood cell per centageOrdered By: Jacinto Flores on 01-17-2025 Nucleated RBC/100 WBC (Bld) [Ratio] 0 % 0-5 [facility] Platelet countOrdered By: Irene Flores on 01-17-2025 Platelets (Bld) [#/Vol] 233 10*3/uL 150-450 [facility] Potassium measurement (mass/ volume)Ordered By: Jacinto Flores on 01-17-2025 Potassium (Unsp spec) [Mass/Vol] 3.7 mmol/L 3.3-5.1 [facility] RBC Auto (Bld) [#/Vol]Ordere d By: Jacinto Flores on 01-17-2025 RBC (Bld) [#/Vol] 3.90 10*6/uL Low 4.2-5.4 [facility] Serum creatinine measurement (mass/volume)Ordered By: Jacinto Flores on 01-17-2025 Creatinine [Mass/Vol] 0.63 mg/dL Low 0.70-1.20 [facility] Serum glucose measurement (m ass/volume)Ordered By: Jacinto Flores on 01-17-2025 Glucose [Mass/Vol] 125 mg/dL High 70-99 [facility] Serum or plasma calcium dahlia urement (mass/volume)Ordered By: Jacinto Flores on 01-17-2025 Calcium [Mass/Vol] 9.1 mg/dL 7.6-11.0 [facility] Serum or plasma urea nitroge n measurement (mass/volume)Ordered By: Jacinto Flores on 01-17-2025 Urea nitrogen [Mass/Vol] 19 mg/dL 4-19 [facility] Sodium levelOrdered By: Kole Flores on 01-17-2025 Sodium [Moles/Vol] 141 mmol/L 133-145 [facility] Troponin T.cardiac [Mass/vol ume] in Serum or Plasma by High sensitivity methodOrdered By: Veronica Louise on 01-17-2025 Troponin T.cardiac High sensitivity method [Mass/Vol] 13 ng/L <14 [facility] Comment on above: Delta: 10 on Troponin T.cardiac High sensitivity method [Mass/Vol] 12 ng/L <14 [facility] Troponin T.cardiac [Mass/vol ume] in Serum or Plasma by High sensitivity methodOrdered By: Jacinto Flores on 01-17-2025 Troponin T.cardiac High sensitivity method [Mass/Vol] 11 ng/L <14 [facility] Troponin T.cardiac High sensitivity method [Mass/Vol] 10 ng/L <14 [facility] Vitamin B12on 01-17-2025 Cobalamin (Vitamin B12) [Mass/Vol] 842 pg/mL Normal 180-914 [facility] Comment on above: Performed By: #### L 503.0106, L3100.1725 ####[facility] [id number] [place], [address] Vitamin B12 ser/plasOrdered By: Veronica Louise on 01-17-2025 Cobalamin (Vitamin B12) [Mass/Vol] 842 pg/mL 180-914 [facility] White blood cell (WBC) count Ordered By: Jacinto Flores on 01-17-2025 WBC (Bld) [#/Vol] 8.7 10*3/uL 4.4-11.0 [facility] Anion gap in Serum or Plasma Ordered By: Antonio San on 01-16-2025 Anion gap [Moles/Vol] 9 mmol/L 5-15 [facility] BUN/creatinine ratioOrdered By: Antonio San on 01-16-2025 Urea nitrogen/Creatinine [Mass ratio] 21.6 mg/mg High 10-20 [facility] Bilirubin, totalOrdered By: Antonio San on 01-16-2025 Bilirubin [Mass/Vol] 0.51 mg/dL 0.00-1.30 [facility] CNPNon 01-16-2025 [facility]N [facility] SAHARA MELÉNDEZ ([id number]) 1945 F NFR Date Time Provider Department 01/16/25 [facility] During your visit today, we recorded the following information about you: Rosendo Brown MD 01/16/2025 8:03 AM Signed Stool studies show white cells that can indicate inflammation or sometimes infection. Rest are ok. Fax to Dr, Friend. Tell her I would follow with him unless the diarrhea has resolved. Shayna Lacey LPN 01/16/2025 9:12 AM Signed Still isn't feeling well. Will fax over to Dr David. Patient will call them to follow up. Advised to let us know if needs further from this office as she still isn't feeling well. Stacey Gilliam RN 01/17/2025 9:15 AM Signed Pts called in and reports Pt is in [facility] ER and wanted to know if providers office had sent information to Dr David's office. I let him know they faxed information yesterday. Allergies As of Date: 01/16/2025 Noted Allergy Reaction BENTYL (DICYCLOMINE HCL) 08/13/2013 1 - Mental Status Change CIPROFLOXACIN 05/24/2014 4 - Hives 14 - Other: See Comments Comments: IV Cipro only Pain at IV site COMPAZINE (PROCHLORPERAZINE EDISY*09/07/2005 5 - Intolerance Comments: [place] like she was coming out of her skin DILAUDID (HYDROMORPHONE (BULK)) 09/07/2005 5 - Intolerance E-MYCIN (ERYTHROMYCIN) 09/07/2005 8 - GI Upset LATEX 07/26/2007 2 - Rash Date Reviewed: 01/11/2025 Reviewed by: Mya Corbin MA - Fully Assessed Reason for Visit: Results [95] Prescriptions as of 01/17/2025 - atorvastatin (LIPITOR) 40 mg tablet Take 1 tablet by mouth once daily. - CPAP/BIPAP/OTHER Type .CPAPSettings into a note to see current settings/supplies/DME information. - colestipol (COLESTID) 1 gram tablet Take 1 tablet by mouth once daily. Dr David - albuterol HFA (VENTOLIN HFA) 90 mcg/actuation inhaler Inhale 2 Puffs as instructed every 4 hours as needed for wheezing/shortness of breath. - escitalopram oxalate (LEXAPRO) 10 mg tablet Take 1 tablet by mouth once daily. - omeprazole (PRILOSEC) 20 mg capsule Take 1 capsule by mouth daily before breakfast. 1/2 hr before meal. - budesonide, enteric coated (ENTOCORT EC) 3 mg 24 hr capsule Take 9 mg by mouth once daily. Dr. David - cephALEXin (KEFLEX) 250 mg capsule Take 250 mg by mouth daily at bedtime. Dr Ayala - Cranberry 500 mg cap Take 500 mg by mouth three times daily. - ascorbic acid, vitamin C, (VITAMIN C) 500 mg tablet Take 500 mg by mouth once daily. - metoprolol tartrate, short acting, (LOPRESSOR) 50 mg tablet Take 50 mg by mouth twice daily. - ELIQUIS 5 mg tab(s) Take 5 mg by mouth twice daily. - clotrimazole-betamethasone (LOTRISONE) cream Apply 1 application to affected area twice daily. - estradiol (ESTRACE) 0.01 % (0.1 mg/gram) vaginal cream Use 1 g vaginally as directed. Insert 1 gram vaginally at bedtime every night for 14 nights then 1 gm vaginally twice a week. - loperamide (IMODIUM) 2 mg cap(s) Take 3 daily, as needed. - nitroglycerin sublingual (NITROQUICK) 0.4 mg SL tablet Dissolve 1 tablet under the tongue as needed. for chest pain,every 5 min x3 - CAFFEINE ORAL Take 0.5 tablets by mouth once daily. - acetaminophen (TYLENOL) 325 mg tablet Take 2 tablets by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 Performed By: #### 2 4323-8, 53932-0, 6-3 ####[facility] [id number] [place] [id number] [place] CO2 [Moles/Vol] 27 mmol/L Normal 22-30 [facility] Comment on above: Order Comment: Speci men Type: BLOOD SPECIMENOrdering Facility: [facility] Address: [address] [place] [address] Performed By: #### 2 4323-8, 22180-8, 3016-3 ####[facility] [id number] [address] [address] [place] Creatinine [Mass/Vol] 0.65 mg/dL Normal 0.58-0.[address] [facility] Comment on above: Order Comment: Santhosh mullins Type: BLOOD SPECIMENOrdering Facility: [facility] Address: [address] [place] [address] Performed By: #### 2 4323-8, 32822-6, 6-3 ####[facility] [id number] [address] OF [facility] Creatinine and Glomerular filtration rate.predicted panel (S/P/Bld) 91 mL/min/1.73m??? Normal >=60 [facility] Comment on above: Order Comment: Santhosh mullins Type: BLOOD SPECIMENOrdering Facility: [facility] Address: [address] [place] [address] Result Comment: Antoinette mated Glomerular Filtration Rate (eGFR) is calculated using the 2020 CKD-EPI creatinine equation. This equation utilizes serum creatinine, sex, and age as parameters. The creatinine assay has traceable calibration to isotope dilution-mass spectrometry. Refer to KDIGO guidelines for clinical interpretation. In patients with unstable renal function, e.g. those with acute kidney injury, the eGFR may not accurately reflect actual GFR. Performed By: #### 2 4323-8, 25596-0, 3 ####[facility] [id number] [place] [address] [place] Glucose [Mass/Vol] 90 mg/dL Normal 74-99 [facility] Comment on above: Order Comment: Santhosh mullins Type: BLOOD SPECIMENOrdering Facility: [facility] Address: [address] [place] [address] Result Comment: The [place] Diabetes Association (ADA) provides guidance for cutoff values for fasting glucose and random glucose. The ADA defines fasting as no caloric intake for at least 8 hours. Fasting plasma glucose results between 100 to 125 mg/dL indicate increased risk for diabetes (prediabetes). Fasting plasma glucose results greater than or equal to 126 mg/dL meet the criteria for diagnosis of diabetes. In the absence of unequivocal hyperglycemia, results should be confirmed by repeat testing. In a patient with classic symptoms of hyperglycemia or hyperglycemic crisis, random plasma glucose results greater than or equal to 200 mg/dL meet the criteria for diagnosis of diabetes. Reference: Standards of Medical Care in Diabetes 2016, [place] [employer]. Diabetes Care. 2016.39(Suppl 1). Performed By: #### 2 4323-8, 42768-0, 3015-3 ####[facility]CL[facility] [id number] [address] [address] [place] Potassium [Moles/Vol] 4.5 mmol/L Normal 3.7-5.[address] [facility] Comment on above: Order Comment: Speci men Type: BLOOD SPECIMENOrdering Facility: [facility] Address: [address] [place] [address] Performed By: #### 2 4323-8, 65613-9, 3 ####[facility] [id number] [place] [address] [place] Protein [Mass/Vol] 7.2 g/dL Normal 6.3-8.0 [facility] Comment on above: Order Comment: Speci men Type: BLOOD SPECIMENOrdering Facility: [facility] Address: [address] [place] [address] Performed By: #### 2 4323-8, 97589-2, 3 ####[facility] [id number] [place] [id number] [place] Sodium [Moles/Vol] 143 mmol/L Normal 136-144 [facility] Comment on above: Order Comment: Speci men Type: BLOOD SPECIMENOrdering Facility: [facility] Address: [address] [place] [address] Performed By: #### 2 4323-8, 04478-8, 3 ####[facility] [id number] [address] [address] [place] Urea nitrogen [Mass/Vol] 18 mg/dL Normal 7-21 [facility] Comment on above: Order Comment: Santhosh men Type: BLOOD SPECIMENOrdering Facility: [facility] Address: [address] [place] [address] Performed By: #### 2 4323-8, 96280-6, 3016-3 ####[facility] [id number] [place] [address] [place] Folate SerPl-mCncon 10-02-19 25 Folate [Mass/Vol] 17.5 ng/mL Normal >4.7 [facility] Comment on above: Order Comment: Santhosh men Type: BLOOD SPECIMENOrdering Facility: [facility] Address: [address] [place] [address] Performed By: #### 2 132-9, 2284-8 ####[facility] [id number] [place] [address] [place] HbA1c (Bld)on 10-02-2024 Average glucose Estimated from glycated hemoglobin (Bld) [Mass/Vol] 111 mg/dL Normal [facility] Comment on above: Order Comment: Santhosh mullins Type: BLOOD SPECIMENOrdering Facility: [facility] Address: [address] [place] [address] Result Comment: eAG: (Estimated average glucose) is a calculated value from HgbA1c and is safety representative of the average blood glucose level in the last 2-3 month period. Performed By: #### 5 5454-3 ####[facility] [id number] [place] [address] [place] HbA1c (Bld) [Mass fraction] 5.5 % Normal 4.3-5.6 [facility] Comment on above: Order Comment: Santhosh men Type: BLOOD SPECIMENOrdering Facility: [facility] Address: [address] [place] [address] Result Comment: [place] Diabetes Association guidelines indicate that patients with HgbA1c in the range 5.7-6.4% are at increased risk for development of diabetes, and intervention by lifestyle modification may be beneficial. HgbA1c greater or equal to 6.5% is considered diagnostic of diabetes. Performed By: #### 5 5454-3 ####[facility]CL[facility] [id number] [place] [address] [place] Lipid 1996 panelon 5 Cholesterol [Mass/Vol] 118 mg/dL Normal <200 [facility] Comment on above: Order Comment: Speci men Type: BLOOD SPECIMENOrdering Facility: [facility] Address: [address] [place] [address] Result Comment: <200 mg/dL, Desirable 200-239 mg/dL, Borderline high >239 mg/dL, High Performed By: #### 2 4323-8, 97135-4, 3016-3 ####[facility] [id number] [address] OF [facility] Cholesterol in HDL [Mass/Vol] 69 mg/dL Normal >39 [facility] Comment on above: Order Comment: Patricai [facility] Type: BLOOD SPECIMENOrdering Facility: [facility] Address: [address] [place] [address] Result Comment: 40-5 9 mg/dL, Acceptable >59 mg/dL, High: Negative risk factor for coronary heart disease <40 mg/dL, Low: Positive risk factor for coronary heart disease Performed By: #### 2 4323-8, 25424-8, 3016-3 ####[facility] [id number] [address] STATES OF [facility] Cholesterol in LDL [Mass/Vol] 38 mg/dL Normal <100 [facility] Comment on above: Order Comment: Speci [facility] Type: BLOOD SPECIMENOrdering Facility: [facility] Address: [address] [place] [address] Result Comment: <100 mg/dL, Optimal 100-129 mg/dL, Near optimal/above optimal 130-159 mg/dL, Borderline high 160-189 mg/dL, High >189 mg/dL, Very high Secondary prevention optimal LDL Cholesterol levels are recommended to be < 70 mg/dL Performed By: #### 2 4323-8, 93583-1, 3016-3 ####[facility]CL[facility] [id number] [place] [address] [place] Cholesterol in LDL/Cholesterol in HDL [Mass ratio] 0.55 {ratio} Normal <2.54 [facility] Comment on above: Order Comment: Speci men Type: BLOOD SPECIMENOrdering Facility: [facility] Address: [address] [place] [address] Result Comment: Cherie dykes: 1. National Cholesterol Education Program ATP III Guideline At-A-Glance Quick Desk Reference: National Heart, Lung, and Blood [place]. National Institutes of Health. 2001: NIH Publication No. 01-3305. 2. An International Atherosclerosis Society position paper: global recommendations for the management of dyslipidemia: executive summary, Atherosclerosis. 2014: 232(2):410-413. Performed By: #### 2 4323-8, 89128-9, 6-3 ####[facility] [id number] [place] [address] [place] Cholesterol in VLDL [Mass/Vol] 11 mg/dL Normal <30 [facility] Comment on above: Order Comment: Speci men Type: BLOOD SPECIMENOrdering Facility: [facility] Address: [address] [place] [address] Performed By: #### 2 4323-8, 90959-1, 6-3 ####[facility]IA [id number] [place] [address] [place] Cholesterol non HDL [Mass/Vol] 49 mg/dL Normal <130 [facility] Comment on above: Order Comment: Speci men Type: BLOOD SPECIMENOrdering Facility: [facility] Address: [address] [place] [address] Result Comment: <130 mg/dL, Optimal 130-159 mg/dL, Near optimal/above optimal 160-189 mg/dL, Borderline high 190-219 mg/dL, High >219 mg/dL, Very high Secondary prevention optimal non HDL Cholesterol levels are recommended to be <100 mg/dL Performed By: #### 2 4323-8, 81417-2, 3016-3 ####[facility] [id number] [place] [address] [place] Cholesterol.total/Kristin sterol in HDL [Mass ratio] 1.71 {ratio} Normal <5.10 [facility] Comment on above: Order Comment: Speci men Type: BLOOD SPECIMENOrdering Facility: [facility] Address: [address] [place] [address] Performed By: #### 2 4323-8, 95215-1, 3016-3 ####[facility] LABIA [id number] [address] [place] FASTING TIME 12 hrs Normal [facility] Comment on above: Order Comment: Speci men Type: BLOOD SPECIMENOrdering Facility: [facility] Address: [address] [place] [address] Performed By: #### 2 4323-8, 97306-5, 3016-3 ####[facility] LABIA [id number] [place] [address] [place] Triglyceride [Mass/Vol] 56 mg/dL Normal <150 C [facility] Comment on above: Order Comment: Speci men Type: BLOOD SPECIMENOrdering Facility: [facility] Address: [address] [place] [address] Result Comment: <150 mg/dL, Normal 150-199 mg/dL, Borderline high 200-499 mg/dL, High >499 mg/dL, Very high Performed By: #### 2 4323-8, 58093-9, 3016-3 ####[facility] LABIA [id number] [place] [address] [place] TSH SerPl-aCncon 10-02-2024 TSH Qn 2.750 m[IU]/L Normal 0.270-4.20 0 [facility] Comment on above: Order Comment: Speci men Type: BLOOD SPECIMENOrdering Facility: [facility] Address: [address] [place] [address] Performed By: #### 2 4323-8, 54276-5, 3016-3 ####[facility] LABCLIA [id number] [place] [address] [place] Vit B12 [facility] Foundationon -21-2 025 Cobalamin (Vitamin B12) [Mass/Vol] 687 pg/mL Normal 232-1245 [facility] Comment on above: Order Comment: Speci men Type: BLOOD SPECIMENOrdering Facility: [facility] Address: [address] [place] [address] Performed By: #### 2 132-9, 2284-8 ####[facility] LABCLIA [id number] [place] [address] [place] Echo Completeon 08-20-2024 Echo Complete [facility] [address] [place] [address] Echo Complete 08/20/24 1257 MR#: [id number] Acct: [id number] Name: SAHARA MELÉNDEZ Rep #: [id number] : 1945 78 From: Cayetano Marie MD Attending Dr: Antonio San NP-C Status: REG CLI Ordering Dr: Antonio San NP PRODUCT REPRESENTATIVE-C Date: 08/20/24 Location: CVS Sex: F C Admitted: Reason For Study: SHORTNESS OF BREATH Procedure This was a 2D Doppler, Color Flow transthoracic echocardiogram. Exam performed in department. Left Ventricle Normal LV size. Apical false tendon noted. Left ventricular systolic function is normal. The left ventricular ejection fraction is 60 %. No regional wall motion abnormalities noted. Right Ventricle Normal RV size. Normal systolic function. Atria The left atrium is moderately enlarged. Normal right atrium. Mitral Valve Mild mitral valve prolapse. Mild-Moderate (1-2+) eccentric mitral valve insufficiency. Tricuspid Valve Normal tricuspid valve. Mild tricuspid valve insufficiency. Pulmonary artery systolic pressure is 30 mmHg. Aortic Valve Trisinus/trileaflet aortic valve. Pulmonic Valve Normal pulmonic valve. Great Vessels Normal aortic root. The pulmonary artery is normal size. Inferior vena cava collapse with respiration. Pericardium/Pleural No pericardial effusion. MMode/2D Measurements Calculations LVIDd: 5.4 cm IVSd: 1.3 cm LVOT diam: 2.0 cm LVIDs: 3.7 cm LVPWd: 1.2 cm LVOT area: 3.1 cm2 RVDd: 3.2 cm FS: 31.3 % asc Aorta Diam: 2.8 cm LAV(MOD-bp): 102.8 ml LVAd ap4: 21.3 cm2 LAV(MOD-bp) Indexed: 52.1 ml/m2 LVLd ap4: 6.5 cm LAV(MOD-sp2): 104.5 ml EDV(MOD-sp4): 56.8 ml LAV(MOD-sp4): 100.9 ml EDV(sp4-el): 59.4 ml LVAs ap4: 12.5 cm2 LVLs ap4: 5.7 cm ESV(MOD-sp4): 22.6 ml ESV(sp4-el): 23.1 ml EF(MOD-sp4): 60.2 % EF(sp4-el): 61.2 % LVAd ap2: 21.8 cm2 SV(MOD-sp4): 34.2 ml SV(MOD-sp2): 34.9 ml LVLd ap2: 6.9 cm SI(MOD-sp4): 17.3 ml/m2 SI(MOD-sp2): 17.7 ml/m2 EDV(MOD-sp2): 57.8 ml EDV(sp2-el): 58.7 ml LVAs ap2: 12.4 cm2 LVLs ap2: 5.6 cm ESV(MOD-sp2): 22.9 ml ESV(sp2-el): 23.1 ml EF(MOD-sp2): 60.4 % SV(sp4-el): 36.4 ml Ao sinus diam: 2.[address] Junction: 2.5 cm LA dimension(2D): 4.9 cm LA A4 area: 29.1 cm2 RA A4 area: 16.7 cm2 TAPSE: 1.3 cm Time Measurements MV dec time: 0.11 sec Doppler Measurements Calculations MV E max kayla: 95.5 cm/sec Lat Peak E' Kayla: 13.6 cm/sec Med Peak E' Kayla: 11.4 cm/sec E/E' lat: 7.0 E/E' med: 8.4 Ao V2 max: 100.2 cm/sec LV V1 max: 96.7 cm/sec SV(LVOT): 50.1 ml Ao max P.0 mmHg LV V1 max P.8 mmHg Ao V2 mean: 76.1 cm/sec LV V1 mean P.1 mmHg Ao mean P.5 mmHg LV V1 mean: 69.1 cm/sec Ao V2 VTI: 15.6 cm LV V1 VTI: 15.9 cm AV (velocity ratio): 1.0 YANET(I,D): 3.2 cm2 YANET(V,D): 3.0 cm2 PA V2 max: 85.9 cm/sec TR max kayla: 249.9 cm/sec TR max P.0 mmHg ECHO/Echo Complete Interpretation Summary Normal LV size. Left ventricular systolic function is normal. The left ventricular ejection fraction is 60 %. The left atrium is moderately enlarged. Mild mitral valve prolapse. Mild-Moderate (1-2+) eccentric mitral valve insufficiency. Ordering Physician: Antonio San Referring Physician: Antonio San Performed By: Tosin Smith RDCS 08/20/24 1506 Date Cayetano Marie MD CC: BRADFORD San; Dr. Rosendo Brown MD Date Dictated: 08/20/24 1257 Date Transcribed: 08/20/24 1506 Grid Inspector: Signed Normal [facility] Absolute neutrophil countOrd ered By: Antonio San on 07-26-2024 Neutrophils (Bld) [#/Vol] 5.1 10*3/uL 2.0-7.7 [facility] BNP (brain natriuretic pepti de measurement)Ordered By: Antonio San on 07-26-2024 Natriuretic peptide B (Bld) [Mass/Vol] 122.1 pg/mL High 0-100 [facility] BNP,B-Type NATRIURETIC PEPTI Ju 07-26-2024 Natriuretic peptide B (Bld) [Mass/Vol] 122.1 pg/mL High 0-100 [facility] Comment on above: Performed By: #### L 503.6620, L100.0100, L500.2500 ####[facility] [address] [place], [address] Basic Metabolic Profile (BMP )on 07-26-2024 BUN/CRE 25.5 RATIO High 10-20 [facility] Comment on above: Performed By: #### L 503.6620, L100.0100, L500.2500 ####[facility] [address] [place], [address] CA,Total 9.4 mg/dL Normal 8.5-10.1 [facility] Comment on above: Performed By: #### L 503.6620, L100.0100, L500.2500 ####[facility] [address] [place], [address] Chloride [Moles/Vol] 108 mmol/L High 98-107 [facility] Comment on above: Performed By: #### L 503.6620, L100.0100, L500.2500 ####[facility] [address] [place], [address] CO2 [Moles/Vol] 28.0 mmol/L Normal 21.0-32.0 [facility] Comment on above: Performed By: #### L 503.6620, L100.0100, L500.2500 ####[facility] [address] [place], [address] Creatinine [Mass/Vol] 0.59 mg/dL Normal 0.55-1.02 [facility] Comment on above: Result Comment: The validity of the calculated GFR GFRAA in patients over 70 years has not been determined. Clinical correlation is essential. Performed By: #### L 503.6620, L100.0100, L500.2500 ####[facility] [address] [place], [address] EST GFR - AA 127 mL/min Normal >60 [facility] Comment on above: Result Comment: Afri can [place] GFR Calc Performed By: #### L 503.6620, L100.0100, L500.2500 ####[facility] [address] [place], [address] GAP 4 Low 5-15 [facility] Comment on above: Performed By: #### L 503.6620, L100.0100, L500.2500 ####[facility] [address] [place], [address] GFR/1.73 sq M.predicted among non-blacks MDRD (S/P/Bld) [Vol rate/Area] 105 mL/min/{1.73_m2} Normal >60 [facility] Comment on above: Result Comment: Non- GFR Calc Performed By: #### L 503.6620, L100.0100, L500.2500 ####[facility] [address] [place], [address] Glucose [Mass/Vol] 99 mg/dL Normal 74-106 [facility] Comment on above: Performed By: #### L 503.6620, L100.0100, L500.2500 ####[facility] [address] [place], [address] Potassium [Moles/Vol] 3.8 mmol/L Normal 3.5-5.1 [facility] Comment on above: Performed By: #### L 503.6620, L100.0100, L500.2500 ####[facility] [address] [place], [address] Sodium [Moles/Vol] 140 mmol/L Normal 136-145 [facility] Comment on above: Performed By: #### L 503.6620, L100.0100, L500.2500 ####[facility] [address] [place], [address] Urea nitrogen [Mass/Vol] 15 mg/dL Normal 7-18 [facility] Comment on above: Performed By: #### L 503.6620, L100.0100, L500.2500 ####[facility] [address] [place], [address] Basophil percentageOrdered B y: Antonio San on 07-26-2024 Basophils/100 WBC (Bld) 0.9 % 0-1 [facility] Blood urea nitrogen (BUN)/cr eatinine ratioOrdered By: Antonio San on 07-26-2024 Urea nitrogen/Creatinine [Mass ratio] 25.5 mg/mg High 10-20 [facility] CBC W/Diff, Automatedon 07-13 Absolute Lymph 1.86 X10 3/uL Normal 0.83-4.51 [facility] Comment on above: Performed By: #### L 503.6620, L100.0100, L500.2500 ####[facility] [address] [place], [address] Absolute Neut 5.1 X10 3/uL Normal 2.0-7.7 [facility] Comment on above: Performed By: #### L 503.6620, L100.0100, L500.2500 ####[facility] [address] [place], [address] Basophils/100 WBC (Bld) 0.9 % Normal 0-1 [facility] Comment on above: Performed By: #### L 503.6620, L100.0100, L500.2500 ####[facility] [address] [place], [address] Eosinophils/100 WBC (Bld) 2.1 % Normal 0-5 [facility] Comment on above: Performed By: #### L 503.6620, L100.0100, L500.2500 ####[facility] [address] [place], [address] Erythrocyte distribution width (RBC) [Ratio] 13.5 % Normal 11.6-14.6 [facility] Comment on above: Performed By: #### L 503.6620, L100.0100, L500.2500 ####[facility] [address] [place], [address] Hematocrit (Bld) [Volume fraction] 38.8 % Normal 37-47 [facility] Comment on above: Performed By: #### L 503.6620, L100.0100, L500.2500 ####[facility] [address] [place], [address] Hemoglobin (Bld) [Mass/Vol] 12.2 g/dL Normal 12.0-15.0 [facility] Comment on above: Performed By: #### L 503.6620, L100.0100, L500.2500 ####[facility] [address] [place], [address] IG% 0.300 Normal 0.0-0.9 [facility] Comment on above: Result Comment: IG% - Immature Granulocytes (promyelocytes, myelocytes and metamyelocytes) > 1% indicates that a LEFT SHIFT is Present. Performed By: #### L 503.6620, L100.0100, L500.2500 ####[facility] [address] [place], [address] Lymphocytes/100 WBC (Bld) 23.5 % Normal 19-41 [facility] Comment on above: Performed By: #### L 503.6620, L100.0100, L500.2500 ####[facility] [address] [place], [address] MCH (RBC) [Entitic mass] 29.3 pg Normal 27.0-32.0 [facility] Comment on above: Performed By: #### L 503.6620, L100.0100, L500.2500 ####[facility] [address] [place], [address] MCHC (RBC) [Mass/Vol] 31.4 g/dL Low 32-36 [facility] Comment on above: Performed By: #### L 503.6620, L100.0100, L500.2500 ####[facility] [address] [place], [address] MCV (RBC) [Entitic vol] 93.0 fL Normal 81-99 [facility] Comment on above: Performed By: #### L 503.6620, L100.0100, L500.2500 ####[facility] [address] [place], [address] Monocytes/100 WBC (Bld) 8.6 % Normal 0-10 [facility] Comment on above: Performed By: #### L 503.6620, L100.0100, L500.2500 ####[facility] [address] [place], [address] Neutrophils/100 WBC (Bld) 64.6 % Normal 47-70 [facility] Comment on above: Performed By: #### L 503.6620, L100.0100, L500.2500 ####[facility] [address] [place], [address] Nucleated RBC (Bld) [#/Vol] 0 10*3/uL Normal 0-5 [facility] Comment on above: Performed By: #### L 503.6620, L100.0100, L500.2500 ####[facility] [address] [place], [address] Platelet mean volume (Bld) [Entitic vol] 10.5 fL Normal 6.2-12.0 [facility] Comment on above: Performed By: #### L 503.6620, L100.0100, L500.2500 ####[facility] [address] [place], [address] Platelets (Bld) [#/Vol] 263 10*3/uL Normal 150-450 [facility] Comment on above: Performed By: #### L 503.6620, L100.0100, L500.2500 ####[facility] [address] [place], [address] RBC (Bld) [#/Vol] 4.17 10*6/uL Low 4.2-5.4 [facility] Comment on above: Performed By: #### L 503.6620, L100.0100, L500.2500 ####[facility] [address] [place], [address] RDW SD 46.2 fl High 35.1-43.9 [facility] Comment on above: Performed By: #### L 503.6620, L100.0100, L500.2500 ####[facility] [address] [place], [address] WBC (Bld) [#/Vol] 7.9 10*3/uL Normal 4.4-11.0 [facility] Comment on above: Performed By: #### L 503.6620, L100.0100, L500.2500 ####[facility] [address] [place], [address] Carbon dioxide measurementOr dered By: Antonio San on 07-26-2024 CO2 [Moles/Vol] 28.0 mmol/L 21.0-32.0 [facility] Cardiology Visit Reporton Cardiology Visit Report [facility] [address] [place] [address] OFFICE VISIT Date of Service: 07/26/24 MR#: [id number] Acct: [id number] Name: SAHARA MELÉNDEZ Rep #: [id number] : 1945 Provider: BRADFORD urbina Age/Sex: 78/F Location: [facility] Status: Signed HPI HPI History of Present Illness Details: This is a 78-year-old white female who presents today for outpatient cardiovascular follow-up of her history of underlying MVP/MR and ventricular ectopy. She was admitted to hospital in January 2023 for TIA. Upon discharge, she underwent a 30-day event monitor. Her event monitor showed short runs of wide-complex tachycardia as well as paroxysmal atrial fibrillation. She was started on anticoagulation and her metoprolol was increased. To assess further, she was asked to undergo a stress test that was completed on 02/18/2023 that showed sinus rhythm at 66 bpm and negative for ischemia. She denies chest, arm, jaw, or neck discomfort. She denies palpitations. She denies bilateral lower extremity edema. She denies claudication. She states shortness of breath with activity such as walking longer distance. She denies it with ADLs. She denies shortness of breath at rest, orthopnea, or PND. She denies chronic cough. She denies significant, sudden weight gain. She denies lightheadedness, dizziness, near-syncope, or syncope. She denies blood in urine, blood in stool, or epistaxis. He denies fever with chills. She denies myalgia. She denies fatigue. Her exercise level has remained stable. Intake Vital Signs 01/25/24 10:44 07/26/24 10:47 Height 5 ft 3 in 5 ft 3 in Weight: 209 lb BMI 37.0 BP 132/80 H Blood Pressure Location Rt brachial Position Sitting Respiration 18 Pulse 83 Pulse Source Monitor Pulse Oximetry (%) 95 Intake Visit Reasons: [address] Administrator Required: No Is patient in pain?: No Allergies ciprofloxacin (From Cipro) Allergy (Verified 07/26/24 10:49) Hives ciprofloxacin HCl (From Cipro) Allergy (Verified 07/26/24 10:49) Hives dicyclomine (From Bentyl) Adverse Reaction (Verified 07/26/24 10:49) Other erythromycin base (Erythromycin Base) Adverse Reaction (Verified 07/26/24 10:49) Vomiting hydromorphone HCl (From Dilaudid) Adverse Reaction (Verified 07/26/24 10:49) anxiety latex Adverse Reaction (Verified 07/26/24 10:49) Rash prochlorperazine edisylate (From Compazine) Adverse Reaction (Verified 07/26/24 10:49) anxiety prochlorperazine maleate (From Compazine) Adverse Reaction (Verified 07/26/24 10:49) anxiety Have you fallen in the past year?: No Nurse's Note: no medication list, does not know names of medications [facility] Medical History (Updated 07/26/24 @ 11:50 by Antonio San PRODUCT REPRESENTATIVE, PRODUCT REPRESENTATIVE-C) Dyspnea on exertion Wears glasses High cholesterol TIA (transient ischemic attack) History of IBS History of diverticulitis History of Holter monitoring History of atrial fibrillation Cardiology follow-up encounter Wears partial dentures Arthritis Interstitial cystitis Bladder disease Easy bruising PONV (postoperative nausea and vomiting) Migraine headache Dietary restriction History of hiatal hernia Gastric reflux Non-smoker Shortness of breath on exertion History of edema History of stress test History of echocardiogram Femur fracture, left Esophagitis IBS (irritable bowel syndrome) Hepatic cyst Renal cyst Non-rheumatic mitral regurgitation Nonrheumatic mitral (valve) prolapse Ventricular ectopy Colitis Fibromyalgia Diverticulosis Anxiety and depression Diarrhea Mitral valve prolapse syndrome Surgical History History of dilation of urethra History of breast surgery History of esophagogastroduodenoscopy (EGD) History of colonoscopy History of surgery on lower extremity H/O hysterectomy with unilateral oophorectomy History of tonsillectomy History of right knee joint replacement History of left knee replacement History of colon surgery History of cholecystectomy History of appendectomy Family History Father CAD (coronary artery disease) Mother CVA (cerebral vascular accident) Diabetes Sister Heart disease Valvular-mitral Grandmother CAD (coronary artery disease) Grandfather CAD (coronary artery disease) Social History Smoking Status: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 01-11-2025 14:23-0400 SaO2% (BldA) [Mass fraction] 97 % Rosendo Brown MD Work Phone: [facility] 01-11-2025 14:23-0400 Systolic blood pressure 112 mm[Hg] Rosendo Brown MD Work Phone: [facility] 10-24-2024 15:06-0500 Body height 160 cm Taylor Thompson MD Work Phone: [facility] 10-24-2024 15:06-0500 Body mass index (BMI) [Ratio] 37.09 kg/m2 Taylor Thompson MD Work Phone: [facility] 10-24-2024 15:06-0500 Body weight 94.98 kg Taylor Thompson MD Work Phone: [facility] 10-24-2024 15:06-0500 Diastolic blood pressure 62 mm[Hg] Taylor Thompson MD Work Phone: [facility] 10-24-2024 15:06-0500 Heart rate 66 /min Taylor Thompson MD Work Phone: [facility] 10-24-2024 15:06-0500 SaO2% (BldA) [Mass fraction] 98 % Taylor Thompson MD Work Phone: [facility] 10-24-2024 15:06-0500 Systolic blood pressure 98 mm[Hg] Taylor Thompson MD Work Phone: [facility] 10-02-2024 11:12-0500 Body mass index (BMI) [Ratio] 37.73 kg/m2 Rosendo Brown MD Work Phone: [facility] 10-02-2024 11:12-0500 Body weight 96.62 kg Rosendo Brown MD Work Phone: [facility] 10-02-2024 11:12-0500 Diastolic blood pressure 66 mm[Hg] Rosendo Brown MD Work Phone: [facility] 10-02-2024 11:12-0500 Heart rate 76 /min Rosendo Brown MD Work Phone: [facility] 10-02-2024 11:12-0500 Respiratory rate 16 /min Rosendo Brown MD Work Phone: [facility] 10-02-2024 11:12-0500 SaO2% (BldA) [Mass fraction] 99 % Rosendo Brown MD Work Phone: [facility] 10-02-2024 11:12-0500 Systolic blood pressure 124 mm[Hg] Rosendo Brown MD Work Phone: [facility] 07-26-2024 10:47-0500 Body height 160.[address] Rosendo Brown MD Work Phone: [facility] 07-26-2024 10:47-0500 Body mass index (BMI) [Ratio] 37 kg/m2 Dr. Rosendo Brown MD Work Phone: [facility] 07-26-2024 10:47-0500 Body weight 94.[address] Rosendo Brown MD Work Phone: [facility] 07-26-2024 10:47-0500 Diastolic blood pressure 80 mm[Hg] Dr. Rosendo Brown MD Work Phone: [facility] 07-26-2024 10:47-0500 Heart rate 83 /min Dr. Rosendo Brown MD Work Phone: [facility] 07-26-2024 10:47-0500 Respiratory rate 18 /min Dr. Rosendo Brown MD Work Phone: [facility] 07-26-2024 10:47-0500 SaO2% (BldA) [Mass fraction] 95 % Dr. Rosendo Brown MD Work Phone: [facility] 07-26-2024 10:47-0500 Systolic blood pressure 132 mm[Hg] Dr. Rosendo Brown MD Work Phone: [facility] 04-04-2024 09:54-0400 Body height 160 cm Rosendo Brown MD Work Phone: [facility] 04-04-2024 09:54-0400 Body mass index (BMI) [Ratio] 36.85 kg/m2 Rosendo Brown MD Work Phone: [facility] 04-04-2024 09:54-0400 Body temperature 98.91 [degF] Rosendo Brown MD Work Phone: [facility] 04-04-2024 09:54-0400 Body weight 94.35 kg Rosendo Brown MD Work Phone: [facility] 04-04-2024 09:54-0400 Diastolic blood pressure 76 mm[Hg] Rosendo Brown MD Work Phone: [facility] 04-04-2024 09:54-0400 Heart rate 72 /min Rosendo Brown MD Work Phone: [facility] 04-04-2024 09:54-0400 SaO2% (BldA) [Mass fraction] 97 % Rosendo Brown MD Work Phone: [facility] 04-04-2024 09:54-0400 Systolic blood pressure 114 mm[Hg] Rosendo Brown MD Work Phone: [facility] 03-14-2024 13:59-0400 Body mass index (BMI) [Ratio] 37.2 kg/m2 Rosendo Brown MD Work Phone: [facility] 03-14-2024 13:59-0400 Body weight 95.25 kg Rosendo Brown MD Work Phone: [facility] 03-14-2024 13:59-0400 Diastolic blood pressure 68 mm[Hg] Rosendo Brown MD Work Phone: [facility] 03-14-2024 13:59-0400 Heart rate 73 /min Rosendo Brown MD Work Phone: [facility] 03-14-2024 13:59-0400 SaO2% (BldA) [Mass fraction] 95 % Rosendo Brown MD Work Phone: [facility] 03-14-2024 13:59-0400 Systolic blood pressure 122 mm[Hg] Rosendo Brown MD Work Phone: [facility] 02-10-2024 10:33-0400 Body mass index (BMI) [Ratio] 37.38 kg/m2 Angelica Suppan DISPENSARY TECHNICIAN.RADIOLOGY RECEPTIONIST Work Phone: [facility] 02-10-2024 10:33-0400 Body temperature 98.1 [degF] Angelica Suppan DISPENSARY TECHNICIAN.RADIOLOGY RECEPTIONIST Work Phone: [facility] 02-10-2024 10:33-0400 Body weight 95.71 kg Angelica Suppan DISPENSARY TECHNICIAN.RADIOLOGY RECEPTIONIST Work Phone: [facility] 02-10-2024 10:33-0400 Diastolic blood pressure 62 mm[Hg] Angelica Suppan DISPENSARY TECHNICIAN.RADIOLOGY RECEPTIONIST Work Phone: [facility] 02-10-2024 10:33-0400 Heart rate 74 /min Angelica Suppan DISPENSARY TECHNICIAN.RADIOLOGY RECEPTIONIST Work Phone: [facility] 02-10-2024 10:33-0400 Respiratory rate 20 /min Angelica Suppan DISPENSARY TECHNICIAN.RADIOLOGY RECEPTIONIST Work Phone: [facility] 02-10-2024 10:33-0400 SaO2% (BldA) [Mass fraction] 99 % Angelica Suppan DISPENSARY TECHNICIAN.RADIOLOGY RECEPTIONIST Work Phone: [facility] 02-10-2024 10:33-0400 Systolic blood pressure 112 mm[Hg] Angelica Suppan DISPENSARY TECHNICIAN.RADIOLOGY RECEPTIONIST Work Phone: [facility] 01-13-2024 11:46-0400 Body height 160 cm Rosendo Brown MD Work Phone: [facility] 01-13-2024 11:46-0400 Body mass index (BMI) [Ratio] 37.2 kg/m2 Rosendo Brown MD Work Phone: [facility] 01-13-2024 11:46-0400 Body weight 95.25 kg Rosendo Brown MD Work Phone: [facility] 01-13-2024 11:46-0400 Diastolic blood pressure 68 mm[Hg] Rosendo Brown MD Work Phone: [facility] 01-13-2024 11:46-0400 Heart rate 80 /min Rosendo Brown MD Work Phone: [facility] 01-13-2024 11:46-0400 SaO2% (BldA) [Mass fraction] 98 % Rosendo Brown MD Work Phone: [facility] 01-13-2024 11:46-0400 Systolic blood pressure 112 mm[Hg] Rosendo Brown MD Work Phone: [facility] 11-18-2023 09:18-0500 Body height 160.[address] Rosendo Brown Work Phone: [facility] 11-18-2023 09:18-0500 Body mass index (BMI) [Ratio] 37.7 kg/m2 Dr. Rosendo Brown Work Phone: [facility] 11-18-2023 09:18-0500 Body weight 96.[address] Rosendo Brown Work Phone: [facility] 10-31-2023 13:56-0500 Body height 160 cm Rosendo Brown MD Work Phone: [facility] 10-31-2023 13:56-0500 Body weight 96.89 kg Rosendo Brown MD Work Phone: [facility] 10-31-2023 13:56-0500 Diastolic blood pressure 52 mm[Hg] Rosendo Brown MD Work Phone: [facility] 10-31-2023 13:56-0500 Heart rate 65 /min Rosendo Brown MD Work Phone: [facility] 10-31-2023 13:56-0500 SaO2% (BldA) [Mass fraction] 97 % Rosendo Brown MD Work Phone: [facility] 10-31-2023 13:56-0500 Systolic blood pressure 104 mm[Hg] Rosendo Brown MD Work Phone: [facility] 04-27-2023 13:48-0400 Body weight 94.35 kg Rosendo Brown MD Work Phone: [facility] 04-27-2023 13:48-0400 Diastolic blood pressure 72 mm[Hg] Rosendo Brown MD Work Phone: [facility] 04-27-2023 13:48-0400 Heart rate 67 /min Rosendo Brown MD Work Phone: [facility] 04-27-2023 13:48-0400 SaO2% (BldA) [Mass fraction] 96 % Rosendo Brown MD Work Phone: [facility] 04-27-2023 13:48-0400 Systolic blood pressure 117 mm[Hg] Rosendo Brown MD Work Phone: [facility] 03-24-2023 10:31-0400 Body temperature 98.9 [degF] Dr. Rosendo Brown Work Phone: [facility] 03-24-2023 10:31-0400 Diastolic blood pressure 65 mm[Hg] Dr. Rosendo Brown Work Phone: [facility] 03-24-2023 10:31-0400 Heart rate 60 /min Dr. Rosendo Brown Work Phone: [facility] 03-24-2023 10:31-0400 Respiratory rate 18 /min Dr. Rosendo Brown Work Phone: [facility] 03-24-2023 10:31-0400 SaO2% (BldA) [Mass fraction] 93 % Dr. Rosendo Brown Work Phone: [facility] 03-24-2023 10:31-0400 Systolic blood pressure 120 mm[Hg] Dr. Rosendo Brown Work Phone: [facility] 03-24-2023 08:48-0400 Body height 160.[address] Rosendo Brown Work Phone: [facility] 03-24-2023 08:48-0400 Body mass index (BMI) [Ratio] 37 kg/m2 Dr. Rosendo Brown Work Phone: [facility] 03-24-2023 08:48-0400 Body weight [address] Rosendo Brown Work Phone: [facility] 03-04-2023 13:51-0400 Body temperature 98.4 [degF] Brock Avelar MD Work Phone: [facility] 03-04-2023 13:51-0400 Body weight 95.98 kg Brock Avelar MD Work Phone: [facility] 03-04-2023 13:51-0400 Diastolic blood pressure 76 mm[Hg] Brock Avelar MD Work Phone: [facility] 03-04-2023 13:51-0400 Heart rate 74 /min Brock Avelar MD Work Phone: [facility] 03-04-2023 13:51-0400 Respiratory rate 18 /min Brock Avelar MD Work Phone: [facility] 03-04-2023 13:51-0400 SaO2% (BldA) [Mass fraction] 96 % Brock Avelar MD Work Phone: [facility] 03-04-2023 13:51-0400 Systolic blood pressure 132 mm[Hg] Brock Avelar MD Work Phone: [facility] 02-25-2023 07:56-0400 Body temperature 98.1 [degF] Rosendo Martinez Jr., MD Work Phone: [facility] 02-25-2023 07:56-0400 Body weight 95.44 kg Rosendo Martinez Jr., MD Work Phone: [facility] 02-25-2023 07:56-0400 Diastolic blood pressure 73 mm[Hg] Rosendo Martinez Jr., MD Work Phone: [facility] 02-25-2023 07:56-0400 Heart rate 68 /min Rosendo Martinez Jr., MD Work Phone: [facility] 02-25-2023 07:56-0400 Respiratory rate 18 /min Rosendo Martinez Jr., MD Work Phone: [facility] 02-25-2023 07:56-0400 SaO2% (BldA) [Mass fraction] 95 % Rosendo Martinez Jr., MD Work Phone: [facility] 02-25-2023 07:56-0400 Systolic blood pressure 116 mm[Hg] Rosendo Martinez Jr., MD Work Phone: [facility] 02-15-2023 13:09-0400 Body height 160.[address] Rosendo Brown Work Phone: [facility] 02-15-2023 13:09-0400 Body mass index (BMI) [Ratio] 37.9 kg/m2 Dr. Rosendo Brown Work Phone: [facility] 02-15-2023 13:09-0400 Body weight 97.[address] Rosendo Brown Work Phone: [facility] 02-15-2023 13:09-0400 Diastolic blood pressure 66 mm[Hg] Dr. Rosendo Brown Work Phone: [facility] 02-15-2023 13:09-0400 Heart rate 64 /min Dr. Rosendo Brown Work Phone: [facility] 02-15-2023 13:09-0400 Respiratory rate 16 /min Dr. Rosendo Brown Work Phone: [facility] 02-15-2023 13:09-0400 Systolic blood pressure 125 mm[Hg] Dr. Rosendo Brown Work Phone: [facility] 02-13-2023 12:05-0400 Body temperature 98.1 [degF] Carina Parker APRN.VECTOR CONTROL ASSISTANT Work Phone: [facility] 02-13-2023 12:05-0400 Body weight 96.53 kg Carina Parker APRN.VECTOR CONTROL ASSISTANT Work Phone: [facility] 02-13-2023 12:05-0400 Diastolic blood pressure 86 mm[Hg] Carina Parker DISPENSARY TECHNICIAN.VECTOR CONTROL ASSISTANT Work Phone: [facility] 02-13-2023 12:05-0400 Heart rate 70 /min Carina Parker DISPENSARY TECHNICIAN.VECTOR CONTROL ASSISTANT Work Phone: [facility] 02-13-2023 12:05-0400 Respiratory rate 22 /min Carina Parker DISPENSARY TECHNICIAN.VECTOR CONTROL ASSISTANT Work Phone: [facility] 02-13-2023 12:05-0400 SaO2% (BldA) [Mass fraction] 98 % Carina Parker DISPENSARY TECHNICIAN.VECTOR CONTROL ASSISTANT Work Phone: [facility] 02-13-2023 12:05-0400 Systolic blood pressure 142 mm[Hg] Carina Parker DISPENSARY TECHNICIAN.VECTOR CONTROL ASSISTANT Work Phone: [facility] 01-25-2023 18:23-0400 Diastolic blood pressure 60 mm[Hg] Mary Haagen DISPENSARY TECHNICIAN.VECTOR CONTROL ASSISTANT Work Phone: [facility] 01-25-2023 18:23-0400 Systolic blood pressure 126 mm[Hg] Mary Haagen DISPENSARY TECHNICIAN.VECTOR CONTROL ASSISTANT Work Phone: [facility] 01-25-2023 14:10-0400 Body weight 95.71 kg Mary Haagen DISPENSARY TECHNICIAN.VECTOR CONTROL ASSISTANT Work Phone: [facility] 01-25-2023 14:10-0400 Heart rate 63 /min Mary Haagen DISPENSARY TECHNICIAN.VECTOR CONTROL ASSISTANT Work Phone: [facility] 01-25-2023 14:10-0400 Respiratory rate 16 /min Mary Haagen DISPENSARY TECHNICIAN.VECTOR CONTROL ASSISTANT Work Phone: [facility] 01-25-2023 14:10-0400 SaO2% (BldA) [Mass fraction] 97 % Mary Haagen DISPENSARY TECHNICIAN.VECTOR CONTROL ASSISTANT Work Phone: [facility] 01-21-2023 10:56-0400 Body temperature 98.3 [degF] Dr. Rosendo Brown Work Phone: 6(215)118-415451 [place] [address] 01-21-2023 10:56-0400 Diastolic blood pressure 46 mm[Hg] Dr. Rosendo Brown Work Phone: 8(237)616-905549 [place] [address] 01-21-2023 10:56-0400 Heart rate 62 /min Dr. Rosendo Brown Work Phone: 5(079)058-961449 [place] [address] 01-21-2023 10:56-0400 Respiratory rate 18 /min Dr. Rosendo Brown Work Phone: 3(197)627-670449 [place] [address] 01-21-2023 10:56-0400 SaO2% (BldA) [Mass fraction] 93 % Dr. Rosendo Brown Work Phone: 7(924)439-697349 [place] [address] 01-21-2023 10:56-0400 Systolic blood pressure 122 mm[Hg] Dr. Rosendo Brown Work Phone: 3(971)078-164449 [place] [address] 01-21-2023 05:47-0400 Body mass index (BMI) [Ratio] 36.6 kg/m2 Dr. Rosendo Brown Work Phone: 9(167)563-201049 [place] [address] 01-21-2023 05:47-0400 Body weight 93.[address] Rosendo Brown Work Phone: 4(990)808-264549 [place] [address] 01-20-2023 13:09-0400 Body temperature 98 [degF] Dr. Rosendo Brown Work Phone: 7(948)962-742949 [place] [address] 01-20-2023 13:09-0400 Diastolic blood pressure 67 mm[Hg] Dr. Rosendo Brown Work Phone: 4(194)968-655349 [place] [address] 01-20-2023 13:09-0400 Heart rate 62 /min Dr. Rosendo Brown Work Phone: 8(310)377-499549 [place] [address] 01-20-2023 13:09-0400 Respiratory rate 14 /min Dr. Rosendo Brown Work Phone: 9(281)867-924749 [place] [address] 01-20-2023 13:09-0400 SaO2% (BldA) [Mass fraction] 97 % Dr. Rosendo Brown Work Phone: 9(692)214-736749 [place] [address] 01-20-2023 13:09-0400 Systolic blood pressure 144 mm[Hg] Dr. Rosendo Brown Work Phone: [facility] 01-20-2023 11:05-0400 Body height 160.[address] Rosendo Brown Work Phone: [facility] 01-20-2023 11:05-0400 Body mass index (BMI) [Ratio] 41 kg/m2 Dr. Rosendo Brown Work Phone: [facility] 01-20-2023 11:05-0400 Body weight 105.[address] Rosendo Brown Work Phone: [facility] 01-19-2023 10:35-0400 Body weight 93.89 kg Mehnaz Eduardo APRN.VECTOR CONTROL ASSISTANT Work Phone: [facility] 01-19-2023 10:35-0400 Diastolic blood pressure 76 mm[Hg] Mehnaz Eduardo APRN.VECTOR CONTROL ASSISTANT Work Phone: [facility] 01-19-2023 10:35-0400 Systolic blood pressure 128 mm[Hg] Mehnaz Eduardo DISPENSARY TECHNICIAN.VECTOR CONTROL ASSISTANT Work Phone: [facility] 01-02-2023 10:02-0400 Body temperature 98.6 [degF] Cara Older DISPENSARY TECHNICIAN.VECTOR CONTROL ASSISTANT Work Phone: [facility] 01-02-2023 10:02-0400 Body weight 94.35 kg Cara Older DISPENSARY TECHNICIAN.VECTOR CONTROL ASSISTANT Work Phone: [facility] 01-02-2023 10:02-0400 Diastolic blood pressure 80 mm[Hg] Cara Older DISPENSARY TECHNICIAN.VECTOR CONTROL ASSISTANT Work Phone: [facility] 01-02-2023 10:02-0400 Heart rate 80 /min Cara Older DISPENSARY TECHNICIAN.VECTOR CONTROL ASSISTANT Work Phone: [facility] 01-02-2023 10:02-0400 Respiratory rate 16 /min Cara Older DISPENSARY TECHNICIAN.VECTOR CONTROL ASSISTANT Work Phone: [facility] 01-02-2023 10:02-0400 SaO2% (BldA) [Mass fraction] 98 % Cara Older DISPENSARY TECHNICIAN.VECTOR CONTROL ASSISTANT Work Phone: [facility] 01-02-2023 10:02-0400 Systolic blood pressure 130 mm[Hg] Cara Nava APRN.VECTOR CONTROL ASSISTANT Work Phone: [facility] 11-01-2022 09:53-0500 Body height 160 cm Rosendo Brown MD Work Phone: [facility] 11-01-2022 09:53-0500 Body weight 96.62 kg Rosendo Brown MD Work Phone: [facility] 11-01-2022 09:53-0500 Diastolic blood pressure 74 mm[Hg] Rosendo Brown MD Work Phone: [facility] 11-01-2022 09:53-0500 Heart rate 63 /min Rosendo Brown MD Work Phone: [facility] 11-01-2022 09:53-0500 SaO2% (BldA) [Mass fraction] 95 % Rosendo Brown MD Work Phone: [facility] 11-01-2022 09:53-0500 Systolic blood pressure 120 mm[Hg] Rosendo Brown MD Work Phone: [facility] 10-16-2022 11:58-0500 Body temperature 97.5 [degF] Diane Dawn APRN.VECTOR CONTROL ASSISTANT Work Phone: [facility] 10-16-2022 11:58-0500 Body weight 96.16 kg Diane Dwan APRN.VECTOR CONTROL ASSISTANT Work Phone: [facility] 10-16-2022 11:58-0500 Diastolic blood pressure 78 mm[Hg] Diane Dawn APRN.VECTOR CONTROL ASSISTANT Work Phone: [facility] 10-16-2022 11:58-0500 Heart rate 86 /min Diane Dawn APRN.VECTOR CONTROL ASSISTANT Work Phone: [facility] 10-16-2022 11:58-0500 Respiratory rate 18 /min Diane Dawn APRN.VECTOR CONTROL ASSISTANT Work Phone: [facility] 10-16-2022 11:58-0500 SaO2% (BldA) [Mass fraction] 96 % Diane Dawn APRN.VECTOR CONTROL ASSISTANT Work Phone: [facility] 10-16-2022 11:58-0500 Systolic blood pressure 124 mm[Hg] Diane Dawn APRN.VECTOR CONTROL ASSISTANT Work Phone: [facility] 04-27-2022 12:16-0400 Body height 160 cm Rosendo Brown MD Work Phone: [facility] 04-27-2022 12:16-0400 Body weight 89.27 kg Rosendo Brown MD Work Phone: [facility] 04-27-2022 12:16-0400 Diastolic blood pressure 64 mm[Hg] Rosendo Brown MD Work Phone: [facility] 04-27-2022 12:16-0400 Heart rate 63 /min Rosendo Brown MD Work Phone: [facility] 04-27-2022 12:16-0400 SaO2% (BldA) [Mass fraction] 95 % Rosendo Brown MD Work Phone: [facility] 04-27-2022 12:16-0400 Systolic blood pressure 110 mm[Hg] Rosendo Brown MD Work Phone: [facility] 04-05-2022 10:47-0400 Body height 160.[address] Rosendo Brown Work Phone: [facility] Work Phone: 04-05-2022 10:47-0400 Body mass index (BMI) [Ratio] 34.8 kg/m2 Dr. Rosendo Brown Work Phone: [facility] Work Phone: 04-05-2022 10:47-0400 Body weight 89.[address] Rosendo Brown Work Phone: [facility] Work Phone: 04-05-2022 10:47-0400 Diastolic blood pressure 70 mm[Hg] Dr. Rosendo Brown Work Phone: [facility] Work Phone: 04-05-2022 10:47-0400 Heart rate 60 /min Dr. Rosendo Brown Work Phone: [facility] Work Phone: 04-05-2022 10:47-0400 Respiratory rate 16 /min Dr. Rosendo Brown Work Phone: [facility] Work Phone: 04-05-2022 10:47-0400 Systolic blood pressure 124 mm[Hg] Dr. Rosendo Brown Work Phone: [facility] Work Phone: 02-24-2022 12:20-0400 Body temperature 97.2 [degF] Dr. Rosendo Brown Work Phone: [facility] Work Phone: 02-24-2022 12:20-0400 Diastolic blood pressure 68 mm[Hg] Dr. Rosendo Brown Work Phone: [facility] Work Phone: 02-24-2022 12:20-0400 Heart rate 67 /min Dr. Rosendo Brown Work Phone: [facility] Work Phone: 02-24-2022 12:20-0400 Respiratory rate 16 /min Dr. Rosendo Brown Work Phone: [facility] Work Phone: 02-24-2022 12:20-0400 SaO2% (BldA) [Mass fraction] 96 % Dr. Rosendo Brown Work Phone: [facility] Work Phone: 02-24-2022 12:20-0400 Systolic blood pressure 130 mm[Hg] Dr. Rosendo Brown Work Phone: [facility] Work Phone: 02-24-2022 10:32-0400 Body height 160.[address] Rosendo Brown Work Phone: [facility] Work Phone: 02-24-2022 10:32-0400 Body mass index (BMI) [Ratio] 33.5 kg/m2 Dr. Rosendo Brown Work Phone: [facility] Work Phone: 02-24-2022 10:32-0400 Body weight [address] Rosendo Brown Work Phone: [facility] Work Phone: 02-08-2022 10:02-0400 Body temperature 98.91 [degF] Brock Avelar MD Work Phone: [facility] 02-08-2022 10:02-0400 Body weight 90.27 kg Brock Avelar MD Work Phone: [facility] 02-08-2022 10:02-0400 Diastolic blood pressure 70 mm[Hg] Brock Avelar MD Work Phone: [facility] 02-08-2022 10:02-0400 Heart rate 70 /min Brock Avelar MD Work Phone: [facility] 02-08-2022 10:02-0400 Respiratory rate 16 /min Brock Avelar MD Work Phone: [facility] 02-08-2022 10:02-0400 SaO2% (BldA) [Mass fraction] 96 % Brock Avelar MD Work Phone: [facility] 02-08-2022 10:02-0400 Systolic blood pressure 140 mm[Hg] Brock Avelar MD Work Phone: [facility] Encounters Encounter Date Encounter Type Care Provider Facility Start: 04-17-2025 ambulatory Lawrence David Facility :[facility] Start: 04-01-2025 End: 04-01-2025 Patient encounter procedure Lawrence David DO -[facility] Work Phone: Start: 04-01-2025 End: 04-01-[address] Rosendo Brown MD Work Phone: [facility] Start: 03-28-2025 ambulatory TAYLOR THOMPSON Facility:[id number] [phone] Start: 03-28-2025 End: 03-28-2025 Subsequent hospital visit by physician [facility] (Lg Bore/3t) Work Phone: [facility] Comment on above: Cognitive impairment , mild, so stated [G31.84] Start: 03-22-2025 End: 03-22-2025 Telephone encounter Harmony Callahan MD Work Phone: Cardiothoracic Comment on above: Insurance Inquiry Start: 03-18-2025 End: 03-18-2025 Refill Rosendo Brown MD Work Phone: [facility] Comment on above: Refill Request Start: 03-13-2025 End: 04-01-2025 Patient encounter status Harmony Callahan MD Work Phone: [facility] Start: 03-13-2025 End: 04-01-2025 Telephone encounter A Enrrique Callahan MD Work Phone: Cardiothoracic Comment on above: Referral Information ; Pre-Op CTHO Consult; Cardiac Preop Checklist Start: 03-13-2025 End: 03-13-2025 Admission to same day surgery center Dr. Cayetano Marie MD -Warehouse Supervisor/Special Procedures Work Phone: Start: 03-13-2025 End: 03-13-[address] Rosendo Brown MD Work Phone: -Warehouse Supervisor/Special Procedures Start: 03-13-2025 ambulatory Cayetano Marie Facility:[facility] Start: 03-13-2025 Non-patient / Non-visit Dr. Arianna WILSON -[facility] Start: 03-04-2025 End: 03-04-2025 Refill Rosendo Brown MD Work Phone: [facility] Comment on above: Refill Request Start: 02-26-2025 End: 02-26-2025 ambulatory Rosendo Brown MD Work Phone: [facility] Comment on above: Allied Health Visit (Medication Adherence Outreach/) Start: 02-25-2025 End: 02-25-2025 Patient encounter procedure Rosendo Brown MD Work Phone: [facility] Comment on above: Mitral valve insuffi ciency, unspecified etiology (Primary Dx); Chronic diastolic (congestive) heart failure (HCC); Paroxysmal atrial fibrillation (HCC); Irritable bowel syndrome with diarrhea; Esophagitis; Celiac disease (HCC); Class 2 severe obesity due to excess calories with serious comorbidity and body mass index (BMI) of 37.0 to 37.9 in adult (HCC); Mild cognitive disorder; Hordeolum externum of right upper eyelid; Blood in stool Start: 02-25-2025 End: 02-25-2025 ambulatory ROSENDO BROWN Facility:[facility] Start: 02-18-2025 Non-patient / Non-visit Dr. Arianna WILSON -[facility] Start: 02-18-2025 End: 02-18-[address] Rosendo Brown MD Work Phone: [facility] Work Phone: Start: 02-18-2025 End: 02-18-2025 Patient encounter procedure Antonio San PRODUCT REPRESENTATIVE-C -Cardiovascular Services Work Phone: Start: 02-18-2025 End: 02-18-2025 ambulatory Antonio San NP Facility:[facility] Start: 02-12-2025 End: 02-12-2025 Patient encounter procedure Antonio San PRODUCT REPRESENTATIVE-C -[facility] Work Phone: Start: 02-12-2025 End: 02-12-[address] Rosendo Brown MD Work Phone: [facility] Work Phone: Start: 02-05-2025 End: 02-05-[address] Rosendo Brown MD Work Phone: [facility] Work Phone: Start: 02-05-2025 End: 02-05-2025 Patient encounter procedure Lawrence David DO -Laboratory Work Phone: Start: 02-05-2025 End: 02-05-2025 Telephone encounter Rosendo Brown MD Work Phone: [facility] Comment on above: Patient Question (re garding upcoming brain MRI and follow up with Dr. Thompson) positive IFOBT refer ral; Patient Update Start: 02-05-2025 End: 02-05-2025 ambulatory Lawrence Pryor Facility:[facility] Start: 01-28-2025 End: 01-28-2025 Patient encounter procedure Antonio FELDER -[facility] Work Phone: Start: 01-28-2025 End: 01-28-[address] Rosendo Brown MD Work Phone: [facility] Work Phone: Start: 01-26-2025 End: 03-28-2025 Follow-up encounter Rosendo Brown MD Work Phone: [facility] Start: 01-25-2025 End: 01-25-[address] Rosendo Brown MD Work Phone: [facility] Work Phone: Start: 01-25-2025 End: 01-25-2025 ambulatory [facility] Facility:[facility] Start: 01-25-2025 End: 01-25-2025 Patient encounter procedure Lawrence Pryor DO -[facility] Work Phone: Comment on above: Chronic diastolic (c ongestive) heart failure (HCC) (Primary Dx); Acute combined systolic and diastolic congestive heart failure (HCC); Paroxysmal atrial fibrillation (HCC); Class 2 severe obesity due to excess calories with serious comorbidity and body mass index (BMI) of 37.0 to 37.9 in adult (HCC); Nonrheumatic mitral (valve) insufficiency; Ventricular arrhythmia; Irritable bowel syndrome with diarrhea; Celiac disease (HCC); Mitral valve insufficiency, unspecified etiology; Memory loss; Nausea; Diarrhea, unspecified type; Anemia, unspecified type; Hordeolum externum of right upper eyelid Start: 01-25-2025 End: 01-25-2025 ambulatory [facility] Facility:[facility] Start: 01-21-2025 End: 01-21-2025 Patient encounter procedure Antonio Turner Mena PRODUCT REPRESENTATIVE-C -Laboratory Work Phone: Start: 01-21-2025 End: 01-21-2025 Patient encounter procedure Antonio Turner Mena PRODUCT REPRESENTATIVE-C -[facility] Work Phone: Start: 01-21-2025 End: 01-22-2025 Patient Outreach Rosendo Brown MD Work Phone: [facility] Comment on above: Transition Of Care Start: 01-21-2025 End: 01-21-2025 ambulatory Antonio San 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 Veronica Louise DO [facility] Work Phone: Start: 01-19-2025 End: 01-19-2025 ambulatory [facility] Facility:[facility] Start: 01-19-2025 End: 01-19-2025 Non-patient / Non-visit Dr. Pato Simmons MD -[facility] Work Phone: Start: 01-18-2025 Non-patient / Non-visit Dr. Veronica Louise DO [facility] Work Phone: Start: 01-18-2025 Non-patient / Non-visit Dr. Liat rahman MD -[facility] Start: 01-18-2025 End: 01-18-2025 ambulatory Ivonne Singleton RN [employer] Comment on above: Opened In Error Start: 01-17-2025 ambulatory Liat Hale Facility:[facility] Start: 01-17-2025 Non-patient / Non-visit Dr. Liat rahman MD -[facility] Start: 01-17-2025 Non-patient / Non-visit Dr. Fiorella Simmons MD -[facility] Start: 01-17-2025 ambulatory Pato Simmons Facility :[facility] Start: 01-17-2025 End: 01-19-2025 Evaluation and management of inpatient Dr. Veronica Louise DO [facility] Work Phone: Start: 01-16-2025 End: 01-16-[address] Roesndo Brown MD Work Phone: [facility] Work Phone: Start: 01-16-2025 End: 01-16-2025 Patient encounter procedure Antonio San PRODUCT REPRESENTATIVE-C -Laboratory Work Phone: Start: 01-16-2025 End: 01-16-2025 Telephone encounter Rosendo Brown MD Work Phone: [facility] Comment on above: Results Start: 01-16-2025 End: 01-16-2025 Patient encounter procedure Antonio San PRODUCT REPRESENTATIVE-C -[facility] Work Phone: Start: 01-16-2025 End: 01-16-2025 ambulatory Antonio San PRODUCT REPRESENTATIVE Facility:[facility] Start: 01-16-2025 End: 01-16-2025 ambulatory Antonio San PRODUCT REPRESENTATIVE Facility:[facility] Start: 01-14-2025 End: 01-14-2025 Telephone encounter Rosendo Brown MD Work Phone: [facility] Comment on above: Results Start: 01-11-2025 End: 01-11-2025 Patient encounter procedure Rosendo Brown MD Work Phone: [facility] Comment on above: Diarrhea, unspecifie d type (Primary Dx); Irritable bowel syndrome with diarrhea; Colitis; Celiac disease (HCC); Mitral valve prolapse; Paroxysmal atrial fibrillation (HCC) Start: 01-11-2025 End: 01-11-2025 ambulatory Rosendo Brown MD Work Phone: [facility] Comment on above: Nausea Start: 12-03-2024 End: 12-03-2024 Refill Rosendo Brown MD Work Phone: [address] [place] [address] Comment on above: Refill Request Start: 11-09-2024 End: 11-09-[address] Rosendo Brown MD Work Phone: [facility] Work Phone: Start: 11-09-2024 End: 11-09-2024 Patient encounter procedure Lawrence David DO [facility] Work Phone: Start: 11-09-2024 End: 11-09-2024 ambulatory Antonio Johnny Mena BRITO Facility:[facility] Start: 10-31-2024 End: 10-31-2024 Telephone encounter Taylor Thompson MD Work Phone: [facility] Comment on above: PAP Therapy Follow U p Start: 10-24-2024 End: 10-24-2024 ambulatory TAYLOR THOMPSON Facility:[facility] Start: 10-24-2024 End: 10-24-2024 Office consultation new/estab patient 80 min Taylor Thompson MD Work Phone: Geriatrics Comment on above: Cognitive impairment , mild, so stated (Primary Dx); Memory impairment; Word finding difficulty; Sleep apnea, unspecified type Start: 10-03-2024 End: 10-03-2024 Telephone encounter Rosendo Brown MD Work Phone: [facility] Comment on above: Results; Erroneous e ncounter-disregard Start: 10-02-2024 End: 10-02-2024 ambulatory ROSENDO BROWN Facility:[facility] Start: 10-02-2024 End: 10-02-2024 Patient encounter procedure Rosendo Brown MD Work Phone: [facility] Comment on above: Chronic diastolic (c ongestive) heart failure (HCC) (Primary Dx); Other migraine without status migrainosus, not intractable; Paroxysmal atrial fibrillation (HCC); Irritable bowel syndrome with diarrhea; Biliary dyskinesia; Fibrocystic breast disease (FCBD), unspecified laterality; Anxiety; Memory impairment; Venous angioma of brain (HCC); Polyuria; Class 2 obesity with body mass index (BMI) of 37.0 to 37.9 in adult, unspecified obesity type, unspecified whether serious comorbidity present; TIA (transient ischemic attack); Other hyperlipidemia Start: 09-26-2024 End: 09-26-2024 ambulatory Rosendo Brown MD Work Phone: [facility] Comment on above: Allied Health Visit (Medication Adherence Outreach ) Start: 09-13-2024 End: 09-13-2024 ambulatory Mehnaz Noel [facility] Start: 09-13-2024 End: 09-13-2024 Patient encounter procedure Mehnaz Noel MA [facility] Comment on above: Population Health Na vigation Outreach ([employer] ) Start: 08-20-2024 ambulatory Cayetano Marie Facility:[facility] Start: 08-20-2024 Non-patient / Non-visit Dr. Arianna WILSON -[facility] Start: 08-20-2024 End: 08-20-2024 Patient encounter procedure Antonio San PRODUCT REPRESENTATIVE-C -Cardiovascular Services Work Phone: Start: 08-20-2024 End: 08-20-2024 ambulatory Antonio San PRODUCT REPRESENTATIVE Facility:[facility] Start: 07-26-2024 End: 07-26-2024 Patient encounter procedure Antonio San PRODUCT REPRESENTATIVE-C -Laboratory Work Phone: Start: 07-26-2024 End: 07-26-2024 Patient encounter procedure Antonio San PRODUCT REPRESENTATIVE-C -[facility] Work Phone: Start: 07-26-2024 End: 07-26-2024 ambulatory Antonio San PRODUCT REPRESENTATIVE Facility:[facility] Start: 07-26-2024 End: 07-26-2024 ambulatory Antonio San PRODUCT REPRESENTATIVE Facility:[facility] Start: 07-02-2024 End: 07-02-2024 Refill Rosendo Brown MD Work Phone: [facility] Comment on above: Refill Request Start: 06-19-2024 End: 06-19-2024 Telephone encounter Rosendo Brown MD Work Phone: [facility] Start: 06-18-2024 End: 06-19-2024 Refill Rosendo Brown MD Work Phone: [facility] Comment on above: Refill Request Start: 06-11-2024 End: 06-11-2024 Refill Rosendo Brown MD Work Phone: [facility] Comment on above: Refill Request Start: 05-10-2024 End: 05-10-2024 ambulatory Lawrence David Facility:[facility] Start: 05-04-2024 End: 06-04-2024 Telephone encounter Rosendo Brown MD Work Phone: [facility] Comment on above: Results Start: 05-04-2024 End: 05-04-2024 ambulatory [facility] Facility:[facility] Start: 04-30-2024 End: 04-30-2024 Telephone encounter Rosendo Brown MD Work Phone: [facility] Comment on above: mammogram order Start: 04-27-2024 Chart abstracting Rosendo Chishlom MD Work Phone: [facility] Start: 04-26-2024 End: 04-26-2024 ambulatory [facility] Facility:[facility] Start: 04-04-2024 Telephone encounter Rosendo Brown MD Work Phone: [facility] Comment on above: Medication Question Start: 04-04-2024 End: 04-04-2024 Subsequent hospital visit by physician Xr [facility] Work Phone: Radiology Comment on above: Cough, unspecified t ype [R05.9] Start: 04-04-2024 End: 04-04-2024 ambulatory [facility] Facility:[facility] Start: 04-04-2024 End: 04-04-2024 Patient encounter procedure Rosendo Brown MD Work Phone: [facility] Comment on above: Cough, unspecified t ype (Primary Dx); Wheezing Start: 03-14-2024 End: 03-14-2024 Patient encounter procedure Rosendo Brown MD Work Phone: [facility] Comment on above: Adjustment reaction with anxiety and depression Start: 02-22-2024 Refill Rosendo Brown MD Work Phone: [facility] Comment on above: Refill Request Start: 02-10-2024 End: 02-10-2024 Office outpatient visit 15 minutes Angelica Ivan APRN.RADIOLOGY RECEPTIONIST Work Phone: [facility] Comment on above: Anxiety with depress ion (Primary Dx); Situational anxiety Start: 01-13-2024 End: 01-13-2024 Patient encounter procedure Rosendo Brown MD Work Phone: [facility] Comment on above: Situational anxiety (Primary Dx) Start: 01-04-2024 End: 01-04-[address] Rosendo Brown Work Phone: [facility] Work Phone: Start: 01-04-2024 End: 01-04-[address] Rosendo Brown Work Phone: [facility] Work Phone: Start: 12-02-2023 End: 12-02-[address] Rosendo Brown Work Phone: [facility] Work Phone: Start: 12-02-2023 End: 12-02-[address] Rosendo Brown Work Phone: [facility]-Laboratory Work Phone: Start: 11-24-2023 ambulatory Velvet cruz PA-C Work Phone: Neurology Comment on above: Sleep study Start: 11-24-2023 E-mail encounter fro m caregiver Velvet Patel PA-C Work Phone: [facility] Start: 11-21-2023 End: 11-22-2023 ambulatory SELF Facility:[facility] Start: 11-18-2023 End: 11-18-[address] Rosendo Brown Work Phone: [facility] Work Phone: Start: 11-18-2023 End: 11-18-[address] Rosendo Brown Work Phone: [facility] Work Phone: Start: 10-31-2023 End: 10-31-2023 Patient encounter procedure Rosendo Brown MD Work Phone: [facility] Comment on above: Other migraine witho ut status migrainosus, not intractable (Primary Dx); Paroxysmal atrial fibrillation (HCC); Nonrheumatic mitral (valve) insufficiency; Chronic diastolic (congestive) heart failure (HCC); Irritable bowel syndrome with diarrhea; Celiac disease; Colitis; Anxiety; Elevated LDL cholesterol level Start: 10-17-2023 Chart abstracting [facility] Work Phone: Neurology Start: 10-14-2023 ambulatory Velvet cruz PA-C Work Phone: Neurology Comment on above: Further sleep study Start: 10-14-2023 E-mail encounter harika m caregiver Velvet Patel PA-C Work Phone: [facility] Start: 10-12-2023 Telephone encounter Velvet zhu PA-C Work Phone: Neurology Comment on above: Insurance Authorizat ion Start: 10-10-2023 End: 10-10-2023 Subsequent hospital visit by physician Aashish [facility] Work Phone: Radiology Comment on above: Acute pain of right shoulder [M25.511] Start: 08-02-2023 Refill Rosendo Brown MD Work Phone: [facility] Comment on above: Refill Request Start: 04-27-2023 End: 04-27-2023 Patient encounter procedure Rosendo Brown MD Work Phone: [facility] Comment on above: TIA (transient ische judie attack) (Primary Dx); Chronic diastolic (congestive) heart failure (HCC); Mitral valve prolapse; Nonrheumatic mitral (valve) insufficiency; Celiac disease; Paroxysmal atrial fibrillation (HCC) Start: 04-05-2023 Telephone encounter Rosendo Brown MD Work Phone: [facility] Comment on above: Results Start: 04-05-2023 End: 04-05-[address] Rosendo Brown Work Phone: [facility] Work Phone: Start: 04-05-2023 End: 04-05-[address] Rosendo Brown Work Phone: [facility]-Outpatient Breast Imaging Work Phone: Start: 03-30-2023 Telephone encounter Rosendo Martinez MD Work Phone: Sleep Comment on above: Results Start: 03-29-2023 Telephone encounter Rosendo Brown MD Work Phone: [facility] Comment on above: Orders (Mammogram) Start: 03-24-2023 End: 03-24-2023 Admission to same day surgery center Dr. Rosendo Brown Work Phone: [facility]-Surgical Day Care Start: 03-24-2023 End: 03-24-[address] Rosenod Brown Work Phone: [facility] Work Phone: Start: 03-18-2023 Chart abstracting [facility] Main Work Phone: Neurology Start: 03-10-2023 Telephone encounter Rosendo Martinez MD Work Phone: [facility] Comment on above: Patient Update Future Appointment ( [place], [place], Any) Start: 03-07-2023 Telephone encounter Joshua JEWELL Work Phone: [facility] Comment on above: Results Start: 03-04-2023 Telephone encounter Brock Reynoso MD Work Phone: [facility] Comment on above: Patient Question Start: 03-04-2023 End: 03-04-2023 Patient encounter procedure Brock Avelar MD Work Phone: [facility] Comment on above: Urinary frequency (P rimary Dx) Start: 02-28-2023 Telephone encounter Rosendo Martinez MD Work Phone: Neurology Comment on above: Inclusion Internship - O ther Start: 02-28-2023 End: 02-28-[address] Rosendo Brown Work Phone: [facility] Work Phone: Start: 02-28-2023 End: 02-28-[address] Rosendo Brown Work Phone: [facility] Start: 02-25-2023 End: 02-25-2023 Patient encounter procedure Rosendo Martinez MD Work Phone: Neurology Comment on above: TIA (transient ische judie attack) (Primary Dx); Venous angioma; Paroxysmal A-fib (HCC); Elevated LDL cholesterol level; Sleep apnea-like behavior; Class 2 obesity with body mass index (BMI) of 37.0 to 37.9 in adult, unspecified obesity type, unspecified whether serious comorbidity present Start: 02-20-2023 Non-patient / Non-visit Dr. Melvin Brown Work Phone: Community [facility] Start: 02-18-2023 Non-patient / Non-visit Dr. Melvin Brown Work Phone: [facility] Start: 02-18-2023 End: 02-18-[address] Rosendo Brown Work Phone: [facility] Work Phone: Start: 02-18-2023 End: 02-18-[address] [facility] Start: 02-15-2023 Telephone encounter Rosendo Brown MD Work Phone: [facility] Comment on above: Patient Question Start: 02-15-2023 End: 02-15-[address] Rosendo Brown Work Phone: [facility] Start: 02-13-2023 ambulatory Melania jackman RN NURSE WORKDAY FINANCIALS CONSULTANT Comment on above: Difficulty Urinating Start: 02-13-2023 End: 02-13-2023 Patient encounter procedure Carina Parker APRN.CNP Work Phone: [facility] Comment on above: Dysuria (Primary Dx) Start: 01-26-[address] Kristine Brown [facility] Start: 01-25-2023 End: 01-25-2023 Office outpatient visit 25 minutes Mary Alejandro APRN.VECTOR CONTROL ASSISTANT Work Phone: [facility] [place] Comment on above: TIA (transient ische judie attack) (Primary Dx) Start: 01-21-2023 Non-patient / Non-visit Dr. Melvin Brown Work Phone: [facility] Start: 01-21-2023 Non-patient / Non-visit Dr. Melvin Brown Work Phone: [facility] Start: 01-20-2023 Telephone encounter Mehnaz peterson APRN.VECTOR CONTROL ASSISTANT Work Phone: OB/Gynecology Comment on above: Patient Update Start: 01-20-2023 Non-patient / Non-visit Dr. Melvin Brown Work Phone: [facility] Start: 01-20-2023 End: 01-21-2023 Evaluation and management of inpatient Dr. Rosendo Brown Work Phone: [facility]-Progressive Care Unit Start: 01-20-[address] Jay Brown Work Phone: [facility] Work Phone: Start: 01-19-2023 End: 01-19-2023 Patient encounter procedure Mehnaz Eduardo APRN.VECTOR CONTROL ASSISTANT Work Phone: OB/Gynecology Comment on above: Vaginal burning (Lachelle alise Dx); Cystocele, midline; Postmenopausal atrophic vaginitis; Recurrent UTI Start: 01-18-2023 E-mail encounter fro m caregiver Sherie Sweet APRN.VECTOR CONTROL ASSISTANT Work Phone: [facility] Start: 01-18-2023 Patient encounter procedure Sherie Sweet APRN.VECTOR CONTROL ASSISTANT Work Phone: OB/Gynecology Comment on above: 01/24/23 appointment Start: 01-03-2023 Telephone encounter Gabbi hernandez PA-C Work Phone: [facility] Comment on above: Results Start: 01-02-2023 End: 01-02-2023 Patient encounter procedure Cara Nava APRN.VECTOR CONTROL ASSISTANT Work Phone: [facility] Comment on above: Burning with urinati on (Primary Dx) Start: 11-03-2022 Telephone encounter Rosendo Brown MD Work Phone: [facility] Comment on above: Results Start: 11-01-2022 End: 11-01-2022 Patient encounter procedure Rosendo Brown MD Work Phone: [facility] Comment on above: Microscopic hematuri a (Primary Dx); Chronic diastolic (congestive) heart failure (HCC); Nonrheumatic mitral (valve) insufficiency; Venous angioma of brain (HCC); Osteopenia of multiple sites; Celiac disease; Mixed hyperlipidemia; Dysuria Start: 10-16-2022 End: 10-16-2022 Patient encounter procedure Diane Dawn APRN.VECTOR CONTROL ASSISTANT Work Phone: [facility] Comment on above: Urinary frequency (P rimary Dx); Recurrent UTI (urinary tract infection) Start: 06-14-2022 End: 06-14-2022 Subsequent hospital visit by physician Bone Density [facility] Work Phone: Radiology Comment on above: Post-menopausal [Z78 .0] Start: 05-27-2022 Telephone encounter Rosendo Brown MD Work Phone: [facility] Comment on above: Patient Question Start: 04-27-2022 End: 04-27-2022 Subsequent hospital visit by physician Xr [facility] [place] Work Phone: Radiology Comment on above: Foot pain, left [M79 .672] Start: 04-27-2022 End: 04-27-2022 Patient encounter procedure Rosendo Brown MD Work Phone: [facility] Comment on above: Celiac disease (Prim alejandra Dx); Special screening examination for viral disease; Chronic diastolic (congestive) heart failure (HCC); Mitral valve prolapse; Anxiety; Ventricular arrhythmia; Fibromyalgia; Mixed hyperlipidemia; Gastritis without bleeding, unspecified chronicity, unspecified gastritis type; Adjustment reaction with anxiety and depression; Foot pain, left Start: 04-15-2022 Non-patient / Non-visit Dr. Melvin Brown Work Phone: [facility] Start: 04-15-2022 End: 04-15-[address] Rosendo Brown Work Phone: [facility] Start: 04-06-2022 ambulatory [facility] Start: 04-05-2022 End: 04-05-[address] Rosendo Brown Work Phone: [facility] Start: 03-29-2022 ambulatory Rosendo Brown MD Work Phone: [facility] [place] Comment on above: mammogram Start: 03-29-2022 E-mail encounter fro m caregiver Rosendo Brown MD [facility] Phone[facility] Start: 03-29-2022 End: 03-29-[address] Rosendo Brown Work Phone: [facility]-Outpatient Breast Imaging Start: 03-10-2022 End: 03-10-[address] Rosendo Brown Work Phone: [facility] Start: 02-24-2022 Non-patient / Non-visit Dr. Melvin Brown Work Phone: [facility] Start: 02-24-2022 End: 02-24-2022 Admission to same day surgery center Dr. Rosendo Brown Work Phone: [facility]-Endoscopy Start: 02-22-2022 ambulatory Emmanuelle Subramanian MA [facility] Comment on above: Population Health Na vigation Outreach (humana care gaps) Start: 02-10-2022 Telephone encounter Carina miller DISPENSARY TECHNICIAN.RED Work Phone: [facility] Comment on above: Results Start: 02-10-2022 End: 02-10-2022 Subsequent hospital visit by physician [facility] Work Phone: Radiology Comment on above: Anterior leg pain, l eft [M79.605] Start: 02-08-2022 End: 02-08-2022 Patient encounter procedure Brock Avelar MD Work Phone: [facility] Comment on above: Anterior leg pain, l eft (Primary Dx) Start: 12-02-2021 End: 12-02-[address] Rosendo Brown Work Phone: [facility]-Laboratory Start: 12-02-2021 End: 12-02-[address] Rosendo Brown Work Phone: [facility] Start: 12-20-2017 End: 12-20-2017 Ambulatory [facility] Facility:[facility] Start: 09-22-2017 End: 09-22-2017 [facility] Facility:[facility] Procedures Date Procedure Procedure Detail Performing Clinician Start: 03-28-2025 MRI 3D BRAIN QUANT Taylor Thompson MD Work Phone: Start: 03-28-2025 Mri brain brain stem w/o contrast material Taylor Thompson MD Work Phone: Start: 01-21-2025 Urnls dip stick/tablet reagent auto microscopy Dr. Rosendo Brown MD Work Phone: Start: 01-19-[address] Darin Brown MD Work Phone: Start: 01-18-2025 Radionuclide gastric emptying study Dr. Rosendo Brown MD Work Phone: Start: 01-18-2025 Folic acid measurement, RBC Dr. Rosendo Brown MD Work Phone: Comment on above: Performed at: [address] [id number] Director: Addison Maradiaga PhD, Phone: [phone] Start: 01-18-2025 Serum inorganic phosphate measurement Dr. Rosendo Brown MD Work Phone: Start: 01-17-2025 Plain chest X-ray Dr. Rosendo Brown MD Work Phone: Start: 01-17-[address] Darin Brown MD Work Phone: Start: 01-16-2025 X-ray of chest, PA and lateral views Dr. Rosendo Brown MD Work Phone: Start: 04-26-2024 Lipid panel [facility] Provider Start: 04-04-2024 Radiologic exam chest 2 views Rosendo Brown MD Work Phone: Start: 01-04-[address] Rosendo Brown Work Phone: Start: 10-10-2023 Radex shoulder complete minimum 2 views Mary Alejandro DISPENSARY TECHNICIAN.VECTOR CONTROL ASSISTANT Work Phone: Start: 04-05-[address] Rosendo Brown Work Phone: Start: 03-24-[address] Rosendo Brown Work Phone: Start: 03-04-2023 Urnls dip stick/tablet rgnt auto w/o microscopy Gabbi Man PA-C Work Phone: Start: 02-28-[address] Rosendo Brown Work Phone: Start: 02-18-2023 Cardiovascular stress test using pharmacologic stress agent Dr. Rosendo Brown Work Phone: Start: 02-13-2023 Urnls dip stick/tablet rgnt auto w/o microscopy Carina Parker DISPENSARY TECHNICIAN.VECTOR CONTROL ASSISTANT Work Phone: Start: 01-20-[address] Rosendo Brown Work Phone: Start: 01-20-2023 CT angiography of head and neck Dr. Jay Brown Work Phone: Start: 01-20-2023 MRI of brain without contrast Dr. Kristine Brown Work Phone: Start: 01-20-2023 CT of head without contrast Dr. Rosendo Brown Work Phone: Start: 01-02-2023 Urnls dip stick/tablet rgnt auto w/o microscopy Carina Parker DISPENSARY TECHNICIAN.VECTOR CONTROL ASSISTANT Work Phone: Start: 11-01-2022 Urnls dip stick/tablet rgnt auto w/o microscopy Rosendo Brown MD Work Phone: Start: 10-16-2022 Urnls dip stick/tablet rgnt auto w/o microscopy Diane Dawn DISPENSARY TECHNICIAN.VECTOR CONTROL ASSISTANT Work Phone: Start: 06-14-2022 Dxa bone density study 1/> sites axial skel Rosendo Brown MD Work Phone: Start: 04-27-2022 Radex foot complete minimum 3 views Rosendo Brown MD Work Phone: Start: 03-29-[address] Rosendo Brown Work Phone: Start: 02-24-2022 End: 02-24-[address] Rosendo Brown Work Phone: Start: 02-10-2022 Dup-scan xtr veins unilateral/limited study Brock Avelar MD Work Phone: Start: 11-06-2018 Colonoscopy Brock Avelar MD Work Phone: Urine culture Dr. Rosendo Chisholm Work Phone: Plan of Treatment Date Care Activity Detail Author Start: 11-06-2028 Colonoscopy [address] [facility] Start: 11-06-2028 COLORECTAL CANCER SCREENING COLORECTAL CANCER SCREENING [facility] Start: 01-26-2028 Diabetes Screening Diabetes Screenin g [facility] Start: 01-12-2028 Diabetes Screening Diabetes Screenin g [facility] Start: 11-01-2027 LIPID SCREEN LIPID SCREEN [facility] Start: 10-02-2027 Diabetes Screening Diabetes Screenin g [facility] Start: 04-27-2027 LIPID SCREEN LIPID SCREEN [facility] Start: 04-28-2026 Diabetes Screening Diabetes Screenin g [facility] Start: 02-25-2026 Annual PCP Team Fermentologist lópez Disease Visit Annual PCP Team Chronic Disease Visit [facility] Start: 01-25-2026 Annual PCP Team Fermentologist lópez Disease Visit Annual PCP Team Chronic Disease Visit [facility] Start: 01-11-2026 Annual PCP Team Fermentologist lópez Disease Visit Annual PCP Team Chronic Disease Visit [facility] Start: 01-03-2026 LIPID SCREEN LIPID SCREEN [facility] Start: 10-02-2025 Annual PCP Team Fermentologist lópez Disease Visit Annual PCP Team Chronic Disease Visit [facility] Start: 10-02-2025 Covid-19 Vaccine ( season) Covid-19 Vaccine () [facility] Comment on above: Postponed from 07/11 (Declined at this time) Start: 05-13-2025 Influenza vaccination Influenza Vacc ine (#1) [facility] Start: 04-27-2025 DIABETES SCREEN DIABETES SCREEN [facility] Start: 04-25-2025 End: 04-25-2025 Admission to same day surgery center 04/25/2025 11:45 AM EDT - 04/25/2025 4:59 PM EDT Surgery Admitting [address] [place] [address] Harmony Callahan MD [address] [place] [address] MVr/MAZE Sternotomy (2) Admitting Comment on above: MVr/MAZE Sternotomy (2) Start: 04-25-2025 Subsequent hospital visit by physician 04/25/2025 11:45 AM EDT Hospital Encounter Admitting [address] [place] [address] [place] [address] [place] [address] Pre-operative cardiovascular examination [Z01.810], Atrial fibrillation, unspecified type (HCC) [I48.91], Mitral valve disorder [I05.9] Admitting Comment on above: Pre-operative cardio vascular examination [Z01.810], Atrial fibrillation, unspecified type (HCC) [I48.91], Mitral valve disorder [I05.9] Start: 04-25-2025 End: 04-25-2025 Vlvp mitral valve w/card byp w/prostc ring VALVULOPLASTY MITRAL W/ RING AND BYPASS Pre-operative cardiovascular examination Atrial fibrillation, unspecified type (HCC) Mitral valve disorder 04/25/2025 11:[address] [facility] Start: 04-24-2025 End: 04-24-2025 Patient encounter procedure 04/24/2025 4:00 PM EDT Office Visit Geriatrics [address] [facility] [place] [address] Taylor Thompson MD [address] [facility] [place], [place] [address] MRI Follow up Geriatrics Comment on above: MRI Follow up Start: 04-18-2025 End: 04-18-2025 Patient encounter procedure 04/18/2025 11:30 AM EDT Office Visit Geriatrics [address] [facility] [place] [address] Taylor Thompson MD [address] [facility] [place] [address] MRI Follow up Geriatrics Comment on above: MRI Follow up Start: 04-17-2025 End: 04-17-2025 Patient encounter procedure [facility] Comment on above: Medicare Wellness MRI Follow up Start: 04-04-2025 Annual PCP Team Fermentologist lópez Disease Visit Annual PCP Team Chronic Disease Visit [facility] Start: 04-01-2025 End: 07-01-2025 aPTT in Platelet poor plasma by Coagulation assay ACTIVATED PARTIAL THROMBOPLASTIN TIME Lab Routine Pre-operative cardiovascular examination Atrial fibrillation, unspecified type (HCC) Mitral valve disorder Expected: 04/01/2025 (Approximate), Expires: 07/01/[address] [facility] Comment on above: Expected: 04/01/2025 (Approximate), Expires: 07/01/2025 Start: 04-01-2025 End: 07-01-2025 CBC W Auto Differential panel - Blood COMPLETE BLOOD COUNT AND DIFFERENTIAL Lab Routine Pre-operative cardiovascular examination Atrial fibrillation, unspecified type (HCC) Mitral valve disorder Expected: 04/01/2025, Expires: 07/01/[address] [facility] Comment on above: Expected: 04/01/2025 , Expires: 07/01/2025 Start: 04-01-2025 End: 07-01-2025 Comprehensive metabolic 2000 panel - Serum or Plasma COMPREHENSIVE METABOLIC PANEL Lab Routine Pre-operative cardiovascular examination Atrial fibrillation, unspecified type (HCC) Mitral valve disorder Expected: 04/01/2025, Expires: 07/01/[address] [facility] Comment on above: Expected: 04/01/2025 , Expires: 07/01/2025 Start: 04-01-2025 End: 07-01-2025 CONFIRM BLOOD TYPE CONFIRM BLOOD TYPE Blood Bank Routine Pre-operative cardiovascular examination Atrial fibrillation, unspecified type (HCC) Mitral valve disorder Expected: 04/01/2025, Expires: 07/01/[address] [facility] Comment on above: Expected: 04/01/2025 , Expires: 07/01/2025 Start: 04-01-2025 End: 07-01-2025 Lactate dehydrogenase [Enzymatic activity/volume] in Serum or Plasma LACTATE DEHYDROGENASE Lab Routine Pre-operative cardiovascular examination Atrial fibrillation, unspecified type (HCC) Mitral valve disorder Expected: 04/01/2025, Expires: 07/01/[address] [facility] Comment on above: Expected: 04/01/2025 , Expires: 07/01/2025 Start: 04-01-2025 End: 07-01-2025 Lipoprotein a [Mass/volume] in Serum or Plasma LIPOPROTEIN (A) Lab Routine Pre-operative cardiovascular examination Atrial fibrillation, unspecified type (HCC) Mitral valve disorder Expected: 04/01/2025, Expires: 07/01/2025 [facility] Work Phone: Comment on above: Expected: 04/01/2025 , Expires: 07/01/2025 Start: 04-01-2025 End: 07-01-2025 PT panel - Platelet poor plasma by Coagulation assay PROTHROMBIN TIME Lab Routine Pre-operative cardiovascular examination Atrial fibrillation, unspecified type (HCC) Mitral valve disorder Expected: 04/01/2025 (Approximate), Expires: 07/01/[address] [facility] Comment on above: Expected: 04/01/2025 (Approximate), Expires: 07/01/2025 Start: 04-01-2025 End: 07-01-2025 STAPHYLOCOCCUS AUREUS & MRSA SCREEN, PCR, NASAL STAPHYLOCOCCUS AUREUS & MRSA SCREEN, PCR, NASAL Lab Routine Pre-operative cardiovascular examination Atrial fibrillation, unspecified type (HCC) Mitral valve disorder Expected: 04/01/2025, Expires: 07/01/[address] [facility] Comment on above: Expected: 04/01/2025 , Expires: 07/01/2025 Start: 04-01-2025 End: 07-01-2025 TYPE AND SCREEN,30 DAY TYPE AND SCREEN,30 DAY Blood Bank Routine Pre-operative cardiovascular examination Atrial fibrillation, unspecified type (HCC) Mitral valve disorder Expected: 04/01/2025, Expires: 07/01/[address] [facility] Comment on above: Expected: 04/01/2025 , Expires: 07/01/2025 Start: 04-01-2025 End: 07-01-2025 URINALYSIS, DIPSTICK ONLY URINALYSIS, DIPSTICK ONLY Lab Routine Pre-operative cardiovascular examination Atrial fibrillation, unspecified type (HCC) Mitral valve disorder Expected: 04/01/2025, Expires: 07/01/[address] [facility] Comment on above: Expected: 04/01/2025 , Expires: 07/01/2025 Start: 03-28-2025 End: 03-28-2025 Patient encounter procedure 03/28/2025 12:00 PM EDT Appointment [facility] [address] [place] [address] Cognitive impairment, mild, so stated [G31.84] [facility] Comment on above: Cognitive impairment , mild, so stated [G31.84] Start: 03-14-2025 Annual PCP Team Fermentologist lópez Disease Visit Annual PCP Team Chronic Disease Visit [facility] Start: 03-14-2025 Covid-19 Vaccine ( season) Covid-19 Vaccine () [facility] Comment on above: Postponed from 10/20 (Declined at this time) Start: 03-13-2025 Patient discharge [facility] Start: 03-04-2025 End: 03-04-2025 Patient encounter procedure 03/04/2025 2:40 PM EDT Office Visit [facility] [address] [place], [place] [id number] Taylor Thompson MD [address] [place], [place] [id number] MRI follow up - 4 week [facility] Comment on above: MRI follow up - 4 we diana Start: 02-25-2025 End: 02-25-2025 Patient encounter procedure 02/25/2025 9:40 AM EDT Office Visit [facility] [address] [place], [place] [address] Rosendo Brown MD [address] [facility] [place], [place] [id number] 4 week f/u [facility] Comment on above: 4 week f/u Start: 02-24-2025 Colonoscopy COLONOSCOPY [facility] Start: 02-24-2025 COLORECTAL CANCER SCREENING COLORECTAL CANCER SCREENING [facility] Start: 02-24-2025 End: 02-24-2025 Patient encounter procedure 02/24/2025 10:30 AM EDT Appointment [facility] [address] [place] [address] Dx: Cognitive impairment, mild, so stated [G31.84] [facility] Comment on above: Dx: Cognitive impair ment, mild, so stated [G31.84] Start: 02-12-2025 Evaluation of diagno stic study results [facility] Start: 01-28-2025 Evaluation of diagno stic study results [facility] Start: 01-25-2025 End: 04-26-2025 Basic metabolic 2000 panel - Serum or Plasma [facility] Work Phone: Comment on above: Expected: 01/25/2025 , Expires: 04/26/2025 Start: 01-25-2025 End: 01-25-2025 Patient encounter procedure 01/25/2025 8:00 AM EDT Office Visit [facility] [address] [facility] [place], [place] [address] Rosendo Brown MD [address] [facility] [place], [place] [phone] TCM. [facility] discharged on 01/19/25. Dx: Afib w/RVR [facility] Comment on above: TCM. [facility] discharged on 01/19/25. Dx: Afib w/RVR Start: 01-19-2025 Patient discharge [facility] Start: 01-17-2025 Following clinical pathway protocol [facility] Start: 01-17-2025 Application of elast ic bandage [facility] Start: 01-17-2025 Assessment of risk o f venous thromboembolism [facility] Start: 01-17-2025 Elevation of affecte d extremity [facility] Start: 01-17-2025 Incentive spirometry [facility] Start: 01-17-2025 Insertion of cathete r into peripheral vein [facility] Start: 01-17-2025 Measuring intake and output [facility] Start: 01-17-2025 Notification of physician [facility] Start: 01-17-2025 Oxygen therapy [facility] Start: 01-17-2025 Patient education [facility] Start: 01-17-2025 Providing care accor ding to standard [facility] Start: 01-17-2025 Provision of activit y privileges [facility] Start: 01-17-2025 Referral to service [facility] Start: 01-17-2025 Respiratory therapy [facility] Start: 01-17-2025 [facility] Start: 01-17-2025 Hospital admission, emergency, from emergency room, medical nature [facility] Start: 01-17-2025 Verification routine [facility] Start: 01-17-2025 Admission procedure [facility] Start: 01-17-2025 End: 01-17-2025 [facility] Start: 01-17-2025 [facility] Start: 01-16-2025 Evaluation of diagno stic study results [facility] Start: 01-14-2025 End: 01-14-2026 CBC W Auto Differential panel - Blood COMPLETE BLOOD COUNT AND DIFFERENTIAL Lab Routine Anemia, unspecified type Expected: 01/14/2025, Expires: 01/14/2026 [facility] Work Phone: Comment on above: Expected: 01/14/2025 , Expires: 01/14/2026 Start: 01-14-2025 End: 01-14-2026 Cobalamin (Vitamin B12) [Mass/volume] in Serum or Plasma VITAMIN B12 Lab Routine Anemia, unspecified type Expected: 01/14/2025, Expires: 01/14/[address] [facility] Comment on above: Expected: 01/14/2025 , Expires: 01/14/2026 Start: 01-14-2025 End: 01-14-2026 Ferritin [Mass/volume] in Serum or Plasma FERRITIN Lab Routine Anemia, unspecified type Expected: 01/14/2025, Expires: 01/14/[address] [facility] Comment on above: Expected: 01/14/2025 , Expires: 01/14/2026 Start: 01-14-2025 End: 01-14-2026 Folate [Mass/volume] in Serum or Plasma FOLATE, SERUM Lab Routine Anemia, unspecified type Expected: 01/14/2025, Expires: 01/14/[address] [facility] Comment on above: Expected: 01/14/2025 , Expires: 01/14/2026 Start: 01-14-2025 End: 01-14-2026 Hemoglobin.gastrointestin al.lower [Presence] in Stool by Immunoassay IMMUNOCHEMICAL FECAL OCCULT BLOOD TEST Lab Routine Anemia, unspecified type Expected: 01/14/2025, Expires: 01/14/[address] [facility] Comment on above: Expected: 01/14/2025 , Expires: 01/14/2026 Start: 01-14-2025 End: 01-14-2026 Iron and Iron binding capacity panel - Serum or Plasma IRON AND TIBC Lab Routine Anemia, unspecified type Expected: 01/14/2025, Expires: 01/14/[address] [facility] Comment on above: Expected: 01/14/2025 , Expires: 01/14/2026 Start: 01-12-2025 Annual PCP Team Fermentologist lópez Disease Visit Annual PCP Team Chronic Disease Visit [facility] Start: 01-11-2025 End: 04-12-2025 Basic metabolic 2000 panel - Serum or Plasma [facility] Comment on above: Expected: 01/11/2025 , Expires: 04/12/2025 Start: 01-11-2025 End: 04-12-2025 CBC W Auto Differential panel - Blood [facility] [facility] Comment on above: Expected: 01/11/2025 , Expires: 04/12/2025 Start: 01-11-2025 End: 01-11-2026 Ova and parasites identified in Unspecified specimen by Light microscopy OVA + PARA MICROSCOPIC Microbiology Routine Diarrhea, unspecified type Expected: 01/11/2025, Expires: 01/11/2026 [facility] Work Phone: Comment on above: Expected: 01/11/2025 , Expires: 01/11/2026 Start: 11-29-2024 End: 11-29-2024 Patient encounter procedure 11/29/2024 11:00 AM EDT Office Visit Geriatrics [address] [place], [place] [phone] Taylor Thompson MD [address] [place], [place] [phone] follow up, mri 11/22 Geriatrics Comment on above: follow up, mri 11/22 Start: 11-22-2024 End: 11-22-2024 Patient encounter procedure 11/22/2024 6:20 AM EDT Appointment [facility] [address] [place] [address] Cognitive impairment, mild, so stated [G31.84] [facility] Comment on above: Cognitive impairment , mild, so stated [G31.84] Start: 10-31-2024 Annual PCP Team Fermentologist lópez Disease Visit Annual PCP Team Chronic Disease Visit [facility] Start: 10-31-2024 RSV Vaccine (1 - 1-d ose 60+ series) RSV Vaccine (1 - 1-dose 60+ series) [facility] Comment on above: Postponed from 12/15 (Declined at this time) Start: 10-31-2024 RSV Vaccine (1 - 1-d ose 75+ series) RSV Vaccine (1 - 1-dose 75+ series) [facility] Comment on above: Postponed from 12/15 (Declined at this time) Start: 10-24-2024 End: 10-24-2024 Patient encounter procedure 10/24/2024 3:30 PM EST Office Visit Geriatrics [address] [place], [place] [phone] Taylor Thompson MD [address] [place], [place] [id number] Memory impairment [R41.3] Geriatrics Comment on above: Memory impairment [R 41.3] Start: 10-10-2024 Annual PCP Team Fermentologist lópez Disease Visit Annual PCP Team Chronic Disease Visit [facility] Start: 10-02-2024 End: 01-01-2025 Cobalamin (Vitamin B12) [Mass/volume] in Serum or Plasma [facility] Comment on above: Expected: 10/02/2024 , Expires: 01/01/2025 Start: 10-02-2024 End: 01-01-2025 Comprehensive metabolic 2000 panel - Serum or Plasma [facility] Comment on above: Expected: 10/02/2024 , Expires: 01/01/2025 Start: 10-02-2024 End: 01-01-2025 Folate [Mass/volume] in Serum or Plasma [facility] Comment on above: Expected: 10/02/2024 , Expires: 01/01/2025 Start: 10-02-2024 End: 01-01-2025 Hemoglobin A1c in Blood [facility] Work Phone: Comment on above: Expected: 10/02/2024 , Expires: 01/01/2025 Start: 10-02-2024 End: 01-01-2025 Lipid 1996 panel - Serum or Plasma [facility] Comment on above: Expected: 10/02/2024 , Expires: 01/01/2025 Start: 10-02-2024 End: 01-01-2025 Thyrotropin [Units/volume] in Serum or Plasma [facility] Comment on above: Expected: 10/02/2024 , Expires: 01/01/2025 Start: 10-02-2024 End: 10-02-2024 Patient encounter procedure 10/02/2024 11:20 AM EST Office Visit Family [facility] [place] [address] [place] [address] Rosendo Brown MD [address] [place] [address] 6 month follow up Family [facility] Comment on above: 6 month follow up Start: 09-17-2024 End: 09-17-2024 Patient encounter procedure 09/17/2024 1:40 PM EST Office Visit [facility] [address] [place] [address] Rosendo Brown MD [address] [place] [address] 6 month follow up [facility] Comment on above: 6 month follow up Start: 09-12-2024 Advance Directive Discussion Advance Directive Discussion [facility] Start: 09-12-2024 Medicare Advantage A nnual Wellness Visit Medicare Advantage Annual Wellness Visit [facility] Start: 07-11-2024 Covid-19 Vaccine () Covid-19 Vaccine () [facility] Start: 07-11-2024 Covid-19 Vaccine () Covid-19 Vaccine () [facility] Start: 05-13-2024 Influenza vaccination Influenza Vacc ine (#1) [facility] Start: 05-07-2024 End: 05-07-2024 Patient encounter procedure 05/07/2024 1:40 PM EDT Office Visit [facility] [address] [place] [address] Rosendo Brown MD [address] [facility] [place] [address] 6 month follow up [facility] Comment on above: 6 month follow up Start: 04-30-2024 End: 07-30-2024 CBC W Auto Differential panel - Blood CBC + DIFF Lab Routine Paroxysmal atrial fibrillation (HCC) Expected: 04/30/2024, Expires: 07/30/2024 [facility] Work Phone: Comment on above: Expected: 04/30/2024 , Expires: 07/30/2024 Start: 04-30-2024 End: 07-30-2024 Comprehensive metabolic 2000 panel - Serum or Plasma COMP METABOLIC PANEL Lab Routine Paroxysmal atrial fibrillation (HCC) Expected: 04/30/2024, Expires: 07/30/2024 [facility] Work Phone: Comment on above: Expected: 04/30/2024 , Expires: 07/30/2024 Start: 04-30-2024 End: 07-30-2024 Lipid 1996 panel - Serum or Plasma LIPID PANEL BASIC Lab Routine Elevated LDL cholesterol level Expected: 04/30/2024, Expires: 07/30/2024 [facility] Work Phone: Comment on above: Expected: 04/30/2024 , Expires: 07/30/2024 Start: 04-27-2024 ANNUAL PCP TEAM DENTAL APPLIANCE MECHANIC LÓPEZ DISEASE VISIT ANNUAL PCP TEAM CHRONIC DISEASE VISIT [facility] Start: 04-27-2024 COVID-19 VACCINE (6 - Moderna series) COVID-19 VACCINE (6 - Moderna series) [facility] Comment on above: Postponed from 09/27 (Declined at this time) Start: 04-11-2024 End: 04-11-2024 Patient encounter procedure 04/11/2024 3:30 PM EDT Office Visit Neurology [address] [place], [place] [id number] Velvet Patel PA-C [address] [place], [place] [phone] 6m f/u Neurology Comment on above: 6m f/u Start: 03-14-2024 End: 03-14-2024 Patient encounter procedure 03/14/2024 2:00 PM EDT Office Visit Family [facility] [address] [place], [place] [phone] Rosendo Brown MD [address] [place] [address] 1 month anxiety f/u [facility] Comment on above: 1 month anxiety f/u Start: 02-27-2024 End: 02-27-2024 Patient encounter procedure 02/27/2024 2:30 PM EDT Office Visit Neurology [address] [place], [place] [address] Soumya Ramirez APRN.VECTOR CONTROL ASSISTANT [address] [place] [address] SARAH (obstructive sleep apnea) [G47.33] Neurology Comment on above: SARAH (obstructive sle ep apnea) [G47.33] Start: 02-10-2024 End: 02-10-2024 Patient encounter procedure 02/10/2024 10:40 AM EDT Office Visit [facility] [address] [place] [address] Angelica Ivan APRN.RADIOLOGY RECEPTIONIST [address] [place], [place] [id number] 4 week follow up start sertraline [facility] Comment on above: 4 week follow up sta rt sertraline Start: 01-26-2024 ANNUAL PCP TEAM DENTAL APPLIANCE MECHANIC LÓPEZ DISEASE VISIT ANNUAL PCP TEAM CHRONIC DISEASE VISIT [facility] Start: 01-04-2024 DIABETES SCREEN DIABETES SCREEN [facility] Start: 11-18-2023 [facility] Start: 11-01-2023 ANNUAL PCP TEAM DENTAL APPLIANCE MECHANIC LÓPEZ DISEASE VISIT ANNUAL PCP TEAM CHRONIC DISEASE VISIT [facility] Start: 10-20-2023 Covid-19 Vaccine ( season) Covid-19 Vaccine ( season) [facility] Start: 09-12-2023 Advance Directive Discussion Advance Directive Discussion [facility] Start: 05-13-2023 Covid-19 Vaccine ( season) Covid-19 Vaccine ( season) [facility] Start: 05-13-2023 Influenza vaccination [facility] Start: 04-27-2023 ANNUAL PCP TEAM DENTAL APPLIANCE MECHANIC LÓPEZ DISEASE VISIT ANNUAL PCP TEAM CHRONIC DISEASE VISIT [facility] Start: 03-27-2023 End: 01-26-2024 Comprehensive metabolic 2000 panel - Serum or Plasma COMP METABOLIC PANEL Lab Routine TIA (transient ischemic attack) Expected: 03/27/2023, Expires: 01/26/2024 [facility] Work Phone: Comment on above: Expected: 03/27/2023 , Expires: 01/26/2024 Start: 03-27-2023 End: 01-26-2024 Lipid 1996 panel - Serum or Plasma LIPID PANEL BASIC Lab Routine TIA (transient ischemic attack) Expected: 03/27/2023, Expires: 01/26/2024 [facility] Work Phone: Comment on above: Expected: 03/27/2023 , Expires: 01/26/2024 Start: 03-24-2023 Anes transurethral w/urethrocystoscopy nos ANESTH BLADDER SURGERY [facility] Start: 03-24-2023 Cysto calibration di lat urtl strix/stenosis CYSTOSCOPY AND TREATMENT [facility] Start: 03-24-2023 Patient discharge [facility] Start: 01-21-2023 Patient discharge [facility] Start: 01-20-2023 Following clinical pathway protocol [facility] Start: 01-20-2023 Ambulation without limitation [facility] Start: 01-20-2023 Assessment of risk o f venous thromboembolism [facility] Start: 01-20-2023 Cardiac monitoring [facility] Start: 01-20-2023 Catheterization of vein [facility] Start: 01-20-2023 Continuous pulse oximetry [facility] Start: 01-20-2023 Elevation of head of bed [facility] Start: 01-20-2023 Exercises [facility] Start: 01-20-[address] anned interventions [facility] Start: 01-20-2023 Incentive spirometry [facility] Start: 01-20-2023 Insertion of cathete r into peripheral vein [facility] Start: 01-20-2023 Measuring intake and output [facility] Start: 01-20-2023 Notification of physician [facility] Start: 01-20-2023 Oxygen therapy [facility] Start: 01-20-2023 Providing care accor ding to standard [facility] Start: 01-20-2023 Referral to occupati onal therapist [facility] Start: 01-20-2023 Referral to service [facility] Start: 01-20-2023 Telepractice consultation [facility] Start: 01-20-2023 Tobacco use cessatio n education [facility] Start: 01-20-2023 [facility] Start: 01-20-2023 MRI of brain without contrast Brain without Contrast [facility] Start: 01-20-2023 Admission procedure [facility] Start: 01-20-2023 [facility] Start: 01-20-2023 Patient referral to dietitian [facility] Start: 01-02-2023 End: 03-04-2023 Bacteria identified in Urine by Culture URINE CULTURE Microbiology Routine Burning with urination Expected: 01/02/2023, Expires: 03/04/2023 [facility] Work Phone: Comment on above: Expected: 01/02/2023 , Expires: 03/04/2023 Start: 11-01-2022 End: 01-01-2023 Lipid 1996 panel - Serum or Plasma [facility] Work Phone: Comment on above: Expected: 11/01/2022 , Expires: 01/01/2023 Start: 09-27-2022 COVID-19 VACCINE (6 - Moderna series) COVID-19 VACCINE (6 - Moderna series) [facility] Start: 09-12-2022 ADVANCE DIRECTIVE DISCUSSION ADVANCE DIRECTIVE DISCUSSION [facility] Start: 05-13-2022 Influenza vaccination INFLUENZA (#1) [facility] Start: 04-27-2022 End: 06-27-2022 CBC W Auto Differential panel - Blood [facility] Work Phone: Comment on above: Expected: 04/27/2022 , Expires: 06/27/2022 Start: 04-27-2022 End: 06-27-2022 Comprehensive metabolic 2000 panel - Serum or Plasma [facility] Work Phone: Comment on above: Expected: 04/27/2022 , Expires: 06/27/2022 Start: 04-27-2022 End: 06-27-2022 Hepatitis C virus Ab [Presence] in Serum [facility] Work Phone: Comment on above: Expected: 04/27/2022 , Expires: 06/27/2022 Start: 04-27-2022 End: 06-27-2022 Lipid 1996 panel - Serum or Plasma [facility] Work Phone: Comment on above: Expected: 04/27/2022 , Expires: 06/27/2022 Start: 02-24-2022 Colonoscopy w/biopsy single/multiple COLONOSCOPY AND BIOPSY [facility] Work Phone: Start: 02-24-2022 Egd removal tumor polyp/other lesion snare tech EGD REMOVE LESION SNARE [facility] Work Phone: Start: 02-24-2022 Egd transoral biopsy single/multiple EGD BIOPSY SINGLE/MULTIPLE [facility] Work Phone: Start: 02-24-2022 Patient discharge [facility] Work Phone: Start: 2021 RSV Vaccine (1 - 1-d ose 75+ series) RSV Vaccine (1 - 1-dose 75+ series) [facility] Start: 11-06-2021 COVID-19 VACCINE (4 - Booster for Moderna series) COVID-19 VACCINE (4 - Booster for Moderna series) [facility] Start: 09-12-2021 ADVANCE DIRECTIVE DISCUSSION ADVANCE DIRECTIVE DISCUSSION [facility] Start: 2006 RSV Vaccine (1 - 1-d ose 60+ series) RSV Vaccine (1 - 1-dose 60+ series) [facility] Start: 1996 SHINGRIX VACCINE (1 of 2) STEEN GRIX VACCINE (1 of 2) [facility] Start: 12-16-1991 COLOGUARD (FIT-DNA) COLOGUARD (FIT-D NA) [facility] Start: 12-16-[address] COLONOGRAPHY [facility] Start: 12-16-1991 FECAL OCCULT BLOOD FECAL OCCULT BLOO D [facility] Start: 12-16-[address] [facility] Start: 1965 Urine microalbumin profile DTAP,TDAP,TD (1 - Tdap) [facility] Start: 1964 HEPATITIS C SCREENING HEPATITIS C [facility] Bacteria identified in Urine by Culture URINE CULTURE Microbiology Routine Urinary frequency Ordered: 10/16/2022 [facility] Work Phone: Comment on above: Ordered: 10/16/2022 Bacteria identified in Urine by Culture URINE CULTURE Microbiology Routine Microscopic hematuria 11/01/2022 10:27 AM EST [facility] Work Phone: Bacteria identified in Urine by Culture Urine Culture [facility] Bacteria identified in Urine by Culture URINE CULTURE Microbiology Routine Dysuria Ordered: 02/13/2023 [facility] Work Phone: Comment on above: Ordered: 02/13/2023 Bacteria identified in Urine by Culture URINE CULTURE Microbiology Routine Urinary frequency 03/04/2023 2:25 PM EDT [facility] Work Phone: Beef IgE Ab [Units/volume] in Serum [facility] Cardioversion [facility] Chocolate IgE Ab [Units/volume] in Serum [facility] Clostridioides diffi cile toxin genes [Presence] in Stool by RADHA with probe detection CLOSTRIDIUM DIFFICILE TOXIN BY PCR Lab Routine Diarrhea, unspecified type Ordered: 01/11/[address] [facility] Comment on above: Ordered: 01/11/2025 Codfish IgE Ab [Units/volume] in Serum [facility] [place] IgE Ab [Units/volume] in Serum [facility] COVID & INFLUENZA A/ B & RSV NAAT, ROUTINE COVID & INFLUENZA A/B & RSV NAAT, ROUTINE Microbiology Routine Cough, unspecified type 04/04/2024 10:23 AM EDT [facility] Work Phone: Cow milk IgE Ab [Units/volume] in Serum [facility] End: 05-30-2025 DBT Breast - bilateral screening TIFFANIE SCREENING W ADITYA Radiology Routine Visit for screening mammogram 1 Occurrences starting 04/30/2024 until 05/30/2025 [facility] Work Phone: Comment on above: 1 Occurrences starti ng 04/30/2024 until 05/30/2025 End: 03-10-2023 Dup-scan xtr veins unilateral/limited study US DVT LOWER LT Radiology STAT Anterior leg pain, left 1 Occurrences starting 02/08/2022 until 03/10/2023 [facility] Work Phone: Comment on above: 1 Occurrences starti ng 02/08/2022 until 03/10/2023 End: 04-01-2026 ECG COMPLETE ECG COMPLETE ECG Routine Pre-operative cardiovascular examination Atrial fibrillation, unspecified type (HCC) Mitral valve disorder 1 Occurrences starting 04/01/2025 until 04/01/[address] [facility] Comment on above: 1 Occurrences starti ng 04/01/2025 until 04/01/2026 End: 04-01-2026 Echocardiography ECHO Cardiology Routine Pre-operative cardiovascular examination Atrial fibrillation, unspecified type (HCC) Mitral valve disorder 1 Occurrences starting 04/01/2025 until 04/01/[address] [facility] Comment on above: 1 Occurrences starti ng 04/01/2025 until 04/01/2026 ENTERIC BACTERIAL PA NAEEM BY PCR ENTERIC BACTERIAL PANEL BY PCR Lab Routine Diarrhea, unspecified type Ordered: 01/11/[address] [facility] Comment on above: Ordered: 01/11/2025 FECAL LACTOFERRIN/LEUKOCYTES FECAL LACTOFERRIN/LEUKOCYTES Lab Routine Diarrhea, unspecified type Ordered: 01/11/[address] [facility] Comment on above: Ordered: 01/11/2025 Giardia lamblia+Cryptosporidium sp Ag [Presence] in Stool by Immunoassay CRYPTOSPORIDIUM AND GIARDIA ANTIGENS BY EIA Microbiology Routine Diarrhea, unspecified type Ordered: 01/11/[address] [facility] Comment on above: Ordered: 01/11/2025 HOME SLEEP APNEA TESHA T (HSAT) HOME SLEEP APNEA TEST (HSAT) Procedures Routine TIA (transient ischemic attack) Sleep apnea-like behavior 1 Occurrences starting 02/25/2023 [facility] Work Phone: Comment on above: 1 Occurrences starti ng 02/25/2023 INTERACTIVE HEART MCKEON RGERY PROGRAM INTERACTIVE HEART SURGERY PROGRAM Procedures Routine Pre-operative cardiovascular examination Atrial fibrillation, unspecified type (HCC) Mitral valve disorder Ordered: 04/01/[address] [facility] Comment on above: Ordered: 04/01/2025 End: 04-27-2024 TIFFANIE SCREENING W ADITYA TIFFANIE SCREENING W ADITYA Radiology Routine Screening mammogram for breast cancer 1 Occurrences starting 03/29/2023 until 04/27/2024 [facility] Work Phone: Comment on above: 1 Occurrences starti ng 03/29/2023 until 04/27/2024 Microscopic observat ion [Identifier] in Vaginal fluid by Gram stain BACT/JULIETTE VAG GRAM STAIN Microbiology Routine Vaginal burning 01/19/2023 11:27 AM EDT [facility] Work Phone: End: 11-23-2025 MR Brain WO contrast MRI BRAIN W QUANT WO IVCON Radiology Routine Cognitive impairment, mild, so stated 1 Occurrences starting 10/24/2024 until 11/23/2025 [facility] Work Phone: Comment on above: 1 Occurrences starti ng 10/24/2024 until 11/23/2025 End: 11-23-2025 MR Unspecified body region 3D post processing MRI 3D BRAIN QUANT Radiology Routine Memory impairment Cognitive impairment, mild, so stated 1 Occurrences starting 10/24/2024 until 11/23/[address] [facility] Comment on above: 1 Occurrences starti ng 10/24/2024 until 11/23/2025 Patient Education TIA Dc [facility] Work Phone: Patient referral [facility] Work Phone: Peanut IgE Ab [Units/volume] in Serum [facility] End: 10-13-2024 Polysomnogram POLYSOMNOGRAM (PSG) Procedures Routine Sleep apnea-like behavior SARAH (obstructive sleep apnea) 1 Occurrences starting 10/14/2023 until 10/13/2024 [facility] Work Phone: Comment on above: 1 Occurrences starti ng 10/14/2023 until 10/13/2024 Polysomnography [facility] Pork IgE Ab [Units/volume] in Serum [facility] [place] IgE Ab [Units/volume] in Serum [facility] Shrimp IgE Ab [Units/volume] in Serum [facility] Soybean IgE Ab [Units/volume] in Serum [facility] Troponin T.cardiac [Mass/volume] in Serum or Plasma by High sensitivity method [facility] Tuna IgE Ab [Units/volume] in Serum [facility] Urinalysis complete panel - Urine URINALYSIS, WITH MICROSCOPIC Lab Routine Microscopic hematuria 11/01/2022 10:27 AM EST [facility] Work Phone: [employer] [facility] Wheat IgE Ab [Units/volume] in Serum [facility] Whole Egg IgE Ab [Units/volume] in Serum [facility] End: 05-01-2026 XR Chest PA and Lateral XR CHEST 2V FRONTAL/LAT Radiology Routine Pre-operative cardiovascular examination Atrial fibrillation, unspecified type (HCC) Mitral valve disorder 1 Occurrences starting 04/01/2025 until 05/01/[address] [facility] Comment on above: 1 Occurrences starti ng 04/01/2025 until 05/01/2026 End: 05-27-2023 XR FOOT GENERAL 3V AP/LAT/OBL LEFT XR FOOT GENERAL 3V AP/LAT/OBL LEFT Radiology Routine Foot pain, left 1 Occurrences starting 04/27/2022 until 05/27/2023 [facility] Work Phone: Comment on above: 1 Occurrences starti ng 04/27/2022 until 05/27/2023 XR FOOT GENERAL 3V AP/LAT/OBL LEFT XR FOOT GENERAL 3V AP/LAT/OBL LEFT Radiology Routine Foot pain, left 04/27/2022 1:24 PM EDT [facility] Work Phone: [facility] Immunizations Immunization Date Immunization Notes Care Provider [facility] 05-16-2024 COVID-19 original vaccine, booster dose, monovalent (MODERNA) Rosendo Brown MD Work Phone: [facility] 05-16-2024 influenza (HD-IIV4) vaccine, age 65+ yr, high dose, quadrivalent, PF (FLUZONE HIGH-DOSE) Rosendo Brown MD Work Phone: [facility] 05-16-2024 influenza virus vacc ine, unspecified formulation Rosendo Brown MD Work Phone: [facility] 06-19-2023 influenza (aIIV4) vaccine, age 65+ yr, quadrivalent, PF (FLUAD QUAD) Rosendo Brown MD Work Phone: [facility] 06-19-2023 influenza virus vacc ine, unspecified formulation Rosendo Brown MD Work Phone: [facility] 06-21-2022 influenza (HD-IIV4) vaccine, age 65+ yr, high dose, quadrivalent, PF (FLUZONE HIGH-DOSE) Rosendo Brown MD Work Phone: [facility] 06-21-2022 influenza, high dose seasonal, preservative-free Diane Dawn APRN.CNP Work Phone: [facility] 06-21-2022 influenza virus vacc ine, unspecified formulation Rosendo Brown MD Work Phone: [facility] 06-19-2021 influenza, high-dose , quadrivalent vaccine (FLUZONE HIGH DOSE QUADRIVALENT) Rosendo Brown MD Work Phone: [facility] 06-21-2020 influenza (aIIV4) vaccine, age 65+ yr, quadrivalent, PF (FLUAD QUADRIVALENT) Rosendo Brown MD Work Phone: [facility] 07-02-2019 influenza, high dose seasonal, preservative-free Brock Avelar MD Work Phone: [facility] 07-05-[address] Rosendo Brown Work Phone: [facility] 07-05-2018 influenza, high dose seasonal, preservative-free Brock Avelar MD Work Phone: [facility] 07-05-2018 influenza, seasonal, injectable, preservative free Rosendo Brown MD Work Phone: [facility] 06-28-2017 influenza, high dose seasonal, preservative-free Brock Avelar MD Work Phone: [facility] 06-12-[address] Rosendo Brown Work Phone: [facility] 06-12-2017 influenza, seasonal, injectable, preservative free Rosendo Brown MD Work Phone: [facility] 11-11-2016 pneumococcal conjuga te vaccine, 13 valent Brock Avelar MD Work Phone: [facility] 07-02-2016 influenza, high dose seasonal, preservative-free Brock Avelar MD Work Phone: [facility] 07-08-2015 influenza, high dose seasonal, preservative-free Brock Avelar MD Work Phone: [facility] 05-17-2014 pneumococcal polysaccharide vaccine, 23 valashli Avelar MD Work Phone: [facility] 06-12-2012 pneumococcal polysaccharide vaccine, 23 valashli Avelar MD Work Phone: [facility] 06-12-[address] Shankar Brown Work Phone: [facility] Work Phone: 06-12-2012 pneumococcal vaccine , unspecified formulation Dr. Rosendo Brown Work Phone: [facility] 07-31-2009 novel influenza-H1N1 -09, preservative-free, injectable Brock Avelar MD Work Phone: [facility] Payers Date Payer Category Payer Self-pay [id number] 2023 Medicare (Managed Care) [id number]. [id number] 2021 Medicare HUMANA MEDICARE HUMANA MEDICARE PPO [id number] 2021-Present [phone] [facility] [id number] [place] [address] PPO [id number] 2021 Medicare [id number] 2013 Medicare [id number] Unknown [id number] 2.16.840.1.996207.3.579.2 .462 Unknown [id number] 2.16.840.1.764610.3.579.2 .462 Unknown [id number] 2.16.840.1.959130.3.579.2 .462 Unknown [id number] 2.16.840.1.837745.3.579.2 .462 Unknown [id number] 2.16.840.1.113687.3.579.2 .462 Unknown [id number] 2.16.840.1.283251.3.579.2 .462 Unknown [id number] 2.16.840.1.585810.3.579.2 .462 Unknown [id number] 2.16.840.1.631452.3.579.2 .462 Unknown [id number] 2.16.840.1.703804.3.579.2 .462 Unknown [id number] 2.16.840.1.217757.3.579.2 .462 Unknown [id number] 2.16.840.1.438782.3.579.2 .462 Unknown [id number] 2.16.840.1.219939.3.579.2 .462 Unknown [id number] 2.840.1.416777.3.579.2 .462 Unknown [id number] 2.16840.1.732139.3.579.2 .462 Unknown [id number] 2.16.840.1.872764.3.579.2 .462 Unknown [id number] 2.16840.1.632531.3.579.2 .462 Unknown [id number] 2.16840.1.328287.3.579.2 .462 Unknown [id number] 2.16.840.1.140896.3.579.2 .462 Unknown [id number] 2.16.840.1.104222.3.579.2 .462 Unknown [id number] 2.16.840.1.169013.3.579.2 .462 Unknown [id number] 2.16.840.1.212058.3.579.2 .462 Unknown [id number] 2.16.840.1.609552.3.579.2 .462 Unknown [id number] 2.16.840.1.074167.3.579.2 .462 Unknown [id number] 2.16.840.1.131481.3.579.2 .462 Unknown [id number] 2.16.840.1.920384.3.579.2 .462 Unknown [id number] 2.16.840.1.897583.3.579.2 .462 Unknown [id number] 2.16.840.1.369867.3.579.2 .462 Unknown [id number] 2.16.840.1.726711.3.579.2 .462 Unknown [id number] 2.16.840.1.928041.3.579.2 .462 Unknown [id number] 2.16.840.1.662207.3.579.2 .462 Unknown [id number] 2.16.840.1.246075.3.579.2 .462 Unknown [id number] 2.16.840.1.026496.3.579.2 .462 Social History Date Type Detail Facility Start: 11-18-2023 End: 03-13-2025 Tobacco smoking status WAIS Never smoked tobacco [facility] Work Phone: Start: 02-08-2022 End: 02-25-2025 Alcohol intake Current non-drinker of alcohol (finding) [facility] Start: 01-01-2021 End: 11-01-2022 History SDOH Alcohol Frequency [address] [facility] Start: 01-01-2021 History SDOH Alcohol Std Drinks [address] [facility] Start: 01-01-2021 End: 11-01-2022 History SDOH Social Connections Phone [address] [facility] Start: 01-01-2021 End: 11-01-2022 History SDOH Social Connections Membership [address] [facility] Start: 01-01-2021 End: 11-01-2022 History SDOH Social Connections Living [address] [facility] Start: 01-01-2021 End: 04-26-2022 History SDOH Financial [address] [facility] Start: 12-31-2020 Education [address] [facility] Start: 1945 Sex Assigned At Female [facility] Start: 02-19-2022 End: 11-18-2023 Tobacco smoking status NHIS Unknown if ever smoked [facility] Start: 07-09-2018 None [facility] Start: 07-09-2018 Spouse/ Signif icant Other [facility] Start: 07-10-2018 Non-smoker [facility] Start: 03-27-2022 End: 04-27-2022 Exposure to SARS-CoV-2 (event) Not sure [facility] Start: 04-26-2022 End: 11-01-2022 History SDOH Alcohol Std Drinks [address] [facility] Start: 10-31-2022 End: 09-17-2024 History of Social function [facility] Start: 10-31-2022 End: 09-17-2024 Social connection and isolation panel [facility] Do you belong to any clubs or organizations such as mormon groups, unions, [employer] or athletic groups, or school groups? Yes [facility] Are you now , , , , never or living with a partner? [facility] How often to you hav e a drink containing alcohol? Never [facility] How many standard drinks containing alcohol do you have on a typical day? Patient does not drink [facility] Do you feel stress - tense, restless, nervous, or anxious, or unable to sleep at night because your mind is troubled all the time - these days [OSQ] Only a little [facility] (I/We) worried wheth er (my/our) food would run out before (I/we) got money to buy more. Never true [facility] In the past 12 month s, was there a time when you were not able to pay the mortgage or rent on time? No [facility] Start: 03-17-2020 Gender identity Identifies as female gender (finding) [facility] Start: 03-17-2020 Sexual orientation Heterosexual (jerzy brito) [facility] How hard is it for y ou to pay for the very basics like food, housing, medical care, and heating Not very hard [facility] Start: 11-23-2024 Sex [facility] (finding[facility]: Highlighted row [facility] Medical Equipment Procedure Code Equipment Code Equipment Origin al Text Equipment Identifier Dates DOUGH,CEMENT 6191-1-010 FDA Start: 02-07-2018 GENDER JORGE ALL P JAIDEN PATELLA FDA Start: 02-07-2018 PERSONA ART SURF CODI CR COMP FDA Start: 02-07-2018 PERSONA CEMENTED TIBIAL COMP FDA Start: 02-07-2018 PERSONA CR FEMOR AL COMP FDA Start: 02-07-2018 DOUGH,CEMENT 6191-1-010 FDA Start: 02-07-2018 GENDER JORGE ALL P JAIDEN PATELLA FDA Start: 02-07-2018 PERSONA ART SURF CODI CR COMP FDA Start: 02-07-2018 PERSONA CEMENTED TIBIAL COMP FDA Start: 02-07-2018 PERSONA CR FEMOR AL COMP FDA Start: 02-07-2018 DOUGH,CEMENT 6191-1-010 FDA Start: 02-07-2018 GENDER JORGE ALL P JAIDEN PATELLA FDA Start: 02-07-2018 PERSONA ART SURF CODI CR COMP FDA Start: 02-07-2018 PERSONA CEMENTED TIBIAL COMP FDA Start: 02-07-2018 PERSONA CR FEMOR AL COMP FDA Start: 02-07-2018 DOUGH,CEMENT 6191-1-010 FDA Start: 02-07-2018 GENDER JORGE ALL P JAIDEN PATELLA FDA Start: 02-07-2018 PERSONA ART SURF CODI CR COMP FDA Start: 02-07-2018 PERSONA CEMENTED TIBIAL COMP FDA Start: 02-07-2018 PERSONA CR FEMOR AL COMP FDA Start: 02-07-2018 DOUGH,CEMENT 6191-1-010 FDA Start: 02-07-2018 GENDER JORGE ALL P JAIDEN PATELLA FDA Start: 02-07-2018 PERSONA ART SURF CODI CR COMP FDA Start: 02-07-2018 PERSONA CEMENTED TIBIAL COMP FDA Start: 02-07-2018 PERSONA CR FEMOR AL COMP FDA Start: 02-07-2018 DOUGH,CEMENT 6191-1-010 FDA Start: 02-07-2018 GENDER JORGE ALL P JAIDEN PATELLA FDA Start: 02-07-2018 PERSONA ART SURF CODI CR COMP FDA Start: 02-07-2018 PERSONA CEMENTED TIBIAL COMP FDA Start: 02-07-2018 PERSONA CR FEMOR AL COMP FDA Start: 02-07-2018 DOUGH,CEMENT 6191-1-010 FDA Start: 02-07-2018 GENDER JORGE ALL P JAIDEN PATELLA FDA Start: 02-07-2018 PERSONA ART SURF CODI CR COMP FDA Start: 02-07-2018 PERSONA CEMENTED TIBIAL COMP FDA Start: 02-07-2018 PERSONA CR FEMOR AL COMP FDA Start: 02-07-2018 DOUGH,CEMENT 6191-1-010 FDA Start: 02-07-2018 GENDER JORGE ALL P JAIDEN PATELLA FDA Start: 02-07-2018 PERSONA ART SURF CODI CR COMP FDA Start: 02-07-2018 PERSONA CEMENTED TIBIAL COMP FDA Start: 02-07-2018 PERSONA CR FEMOR AL COMP FDA Start: 02-07-2018 DOUGH,CEMENT 6191-1-010 FDA Start: 02-07-2018 GENDER JORGE ALL P JAIDEN PATELLA FDA Start: 02-07-2018 PERSONA ART SURF CODI CR COMP FDA Start: 02-07-2018 PERSONA CEMENTED TIBIAL COMP FDA Start: 02-07-2018 PERSONA CR FEMOR AL COMP FDA Start: 02-07-2018 DOUGH,CEMENT 6191-1-010 FDA Start: 02-07-2018 GENDER JORGE ALL P JAIDEN PATELLA FDA Start: 02-07-2018 PERSONA ART SURF CODI CR COMP FDA Start: 02-07-2018 PERSONA CEMENTED TIBIAL COMP FDA Start: 02-07-2018 PERSONA CR FEMOR AL COMP FDA Start: 02-07-2018 DOUGH,CEMENT 6191-1-010 FDA Start: 02-07-2018 GENDER JORGE ALL P JAIDEN PATELLA FDA Start: 02-07-2018 PERSONA ART SURF CODI CR COMP FDA Start: 02-07-2018 PERSONA CEMENTED TIBIAL COMP FDA Start: 02-07-2018 PERSONA CR FEMOR AL COMP FDA Start: 02-07-2018 DOUGH,CEMENT 6191-1-010 FDA Start: 02-07-2018 GENDER JORGE ALL P JAIDEN PATELLA FDA Start: 02-07-2018 PERSONA ART SURF CODI CR COMP FDA Start: 02-07-2018 PERSONA CEMENTED TIBIAL COMP FDA Start: 02-07-2018 PERSONA CR FEMOR AL COMP FDA Start: 02-07-2018 DOUGH,CEMENT 6191-1-010 FDA Start: 02-07-2018 GENDER JORGE ALL P JAIDEN PATELLA FDA Start: 02-07-2018 PERSONA ART SURF CODI CR COMP FDA Start: 02-07-2018 PERSONA CEMENTED TIBIAL COMP FDA Start: 02-07-2018 PERSONA CR FEMOR AL COMP FDA Start: 02-07-2018 DOUGH,CEMENT 6191-1-010 FDA Start: 02-07-2018 GENDER JORGE ALL P JAIDEN PATELLA FDA Start: 02-07-2018 PERSONA ART SURF CODI CR COMP FDA Start: 02-07-2018 PERSONA CEMENTED TIBIAL COMP FDA Start: 02-07-2018 PERSONA CR FEMOR AL COMP FDA Start: 02-07-2018 DOUGH,CEMENT 6191-1-010 FDA Start: 02-07-2018 GENDER JORGE ALL P JAIDEN PATELLA FDA Start: 02-07-2018 PERSONA ART SURF CODI CR COMP FDA Start: 02-07-2018 PERSONA CEMENTED TIBIAL COMP FDA Start: 02-07-2018 PERSONA CR FEMOR AL COMP FDA Start: 02-07-2018 DOUGH,CEMENT 6191-1-010 FDA Start: 02-07-2018 GENDER JORGE ALL P JAIDEN PATELLA FDA Start: 02-07-2018 PERSONA ART SURF CODI CR COMP FDA Start: 02-07-2018 PERSONA CEMENTED TIBIAL COMP FDA Start: 02-07-2018 PERSONA CR FEMOR AL COMP FDA Start: 02-07-2018 DOUGH,CEMENT 6191-1-010 FDA Start: 02-07-2018 GENDER JORGE ALL P JAIDEN PATELLA FDA Start: 02-07-2018 PERSONA ART SURF CODI CR COMP FDA Start: 02-07-2018 PERSONA CEMENTED TIBIAL COMP FDA Start: 02-07-2018 PERSONA CR FEMOR AL COMP FDA Start: 02-07-2018 DOUGH,CEMENT 6191-1-010 FDA Start: 02-07-2018 GENDER JORGE ALL P JAIDEN PATELLA FDA Start: 02-07-2018 PERSONA ART SURF CODI CR COMP FDA Start: 02-07-2018 PERSONA CEMENTED TIBIAL COMP FDA Start: 02-07-2018 PERSONA CR FEMOR AL COMP FDA Start: 02-07-2018 DOUGH,CEMENT 6191-1-010 FDA Start: 02-07-2018 GENDER JORGE ALL P JAIDEN PATELLA FDA Start: 02-07-2018 PERSONA ART SURF CODI CR COMP FDA Start: 02-07-2018 PERSONA CEMENTED TIBIAL COMP FDA Start: 02-07-2018 PERSONA CR FEMOR AL COMP FDA Start: 02-07-2018 DOUGH,CEMENT 6191-1-010 FDA Start: 02-07-2018 GENDER JORGE ALL P JAIDEN PATELLA FDA Start: 02-07-2018 PERSONA ART SURF CODI CR COMP FDA Start: 02-07-2018 PERSONA CEMENTED TIBIAL COMP FDA Start: 02-07-2018 PERSONA CR FEMOR AL COMP FDA Start: 02-07-2018 DOUGH,CEMENT 6191-1-010 FDA Start: 02-07-2018 GENDER JORGE ALL P JAIDEN PATELLA FDA Start: 02-07-2018 PERSONA ART SURF CODI CR COMP FDA Start: 02-07-2018 PERSONA CEMENTED TIBIAL COMP FDA Start: 02-07-2018 PERSONA CR FEMOR AL COMP FDA Start: 02-07-2018 DOUGH,CEMENT 6191-1-010 FDA Start: 02-07-2018 GENDER JORGE ALL P JAIDEN PATELLA FDA Start: 02-07-2018 PERSONA ART SURF CODI CR COMP FDA Start: 02-07-2018 PERSONA CEMENTED TIBIAL COMP FDA Start: 02-07-2018 PERSONA CR FEMOR AL COMP FDA Start: 02-07-2018 DOUGH,CEMENT 6191-1-010 FDA Start: 02-07-2018 GENDER JORGE ALL P JAIDEN PATELLA FDA Start: 02-07-2018 PERSONA ART SURF CODI CR COMP FDA Start: 02-07-2018 PERSONA CEMENTED TIBIAL COMP FDA Start: 02-07-2018 PERSONA CR FEMOR AL COMP FDA Start: 02-07-2018 Goals Date Patient Goal Desired Activity /State Functional Status Date Assessment Result Facility 01-19-2025 Functional status Ambulates [facility] Work Phone: 01-21-2023 Functional status Ambulates;Up ad vianey [facility] Work Phone: 11-21-2014 Are you deaf, or do you have serious difficulty hearing No 11/21/2014 1:53 PM Michael Haynes No [facility] 11-21-2014 Are you blind, or do you have serious difficulty seeing, even when wearing glasses No 11/21/2014 1:53 PM Michael Haynes No [facility] 11-21-2014 Do you have serious difficulty walking or climbing stairs No 11/21/2014 1:53 PM Michael Haynes No [facility] 11-21-2014 Do you have difficul ty dressing or bathing No 11/21/2014 1:53 PM Michael Haynes [facility] 11-21-2014 Because of a physica l, mental, or emotional condition, do you have difficulty doing errands alone such as visiting a physician's office or shopping No 11/21/2014 1:53 PM EDT MooreMichael Vani [facility] Mental Status Date Assessment Result Facility 01-19-2025 Cognitive function Voice/Name [facility] Work Phone: 03-24-2023 Cognitive function Voice/Name [facility] Work Phone: 01-21-2023 Cognitive function Voice/Name [facility] Work Phone: 01-20-2023 Cognitive function Comprehension Ability Demonstrates ability to follow instructions/comprehend [facility] Work Phone: 01-20-2023 Cognitive function Voice/Name [facility] Work Phone: 02-24-2022 Cognitive function Voice/Name [facility] Work Phone: 11-21-2014 Because of a physica l, mental, or emotional condition, do you have serious difficulty concentrating, remembering, or making decisions No 11/21/2014 1:53 PM EDT Michael Moore [facility] Clinical Notes 09-15-2018 to 04-01-2025 Telephone Encounter - Trish Delarosa RN - 04/01/2025 1:50 PM EDTTelephone Encounter - Trish Delarosa RN - 04/01/2025 1:50 PM EDTPMelania sal RT(R) - 03/28/2025 12:00 PM EDT Note Date & Type Note Facility 04-01-2025 Telephone encounter Note OPD 8.11, Cath 8.12, Anibal christian 8.13 @ 1200, [facility] 8.14.2024 MVr/MAZE Sternotomy (2) Discussed with Sahara and her the details regarding surgery scheduled with Dr. Callahan on 04.25. We reviewed the Dental Form and provided instructions for the last dose date of Eliquis, Jardiance, and any other anti-coagulants, vitamins, supplements, minerals, herbal products, NSAID's should be 8.8. Trish Delarosa RN April 01, 2025 2:00 PM Cardiac Surgery PreOp Checklist Patient Name: Sahara Meléndez OR Surgery Date: 04.25.25 [facility]CI Appt. Date: 04.24.25 Primary Care Provider: Rosendo Brown MD Definition Comments Diabetes/Insulin Pump A1-c and Endo consult (need for pump pt) n/a Hypothyroid/thyroid nodules TSH/US of thyroid if new nodule n/a Stroke (CVA) Neurology consult n/a Dysphagia, stricture w/no recent dilation, Gray's Esophagus GI consult n/a Von Willebrand/thrombocytopenia/ Blood... Hematology consult n/a Abnormal labs from outside Place any necessary consults n/a Cardiac Cath Correct birthday/include all images/moving if outside cath ordered Redo OHS/Robotic surgery/radiation to chest CT or CTA/if outside CT will need in-house CXR, Cardiac MRI n/a Mechanical valve Admit for Heparin/Lovenox bridge n/a Female <50 y/o HCG n/a Heparin allergy hx of HIT Vascular Medicine consult n/a Nickel/Metal allergy Dermatology consult n/a Breast implants/Robotic candidates Plastic Surgery consult n/a Urinary strictures Urology consult/Urology consult to OR n/a All stimulators/spinal stimulator Type of stimulator n/a PPM/AICD Device check n/a Valve/TAVR/TEVAR/Myectomy/ascend ing aorta Dental clearance/Dental Consult at F discussed CABG surgery with previous CABG/varicose vein/vein stripping Leg vein mapping n/a LMT disease > 30% or Carotid Bruits Carotid ultrasound n/a Descending Aneurysm/TEVAR/TAA Pre-admit/hydration/spinal drain to be placed: IR/OR/Not Needed n/a Dialysis patient IHD day prior to [facility] n/a CABG with no ECHO results Discussion w/surgeon results for dental clearance: preop/postop n/a Advanced Directives Instructions given to patient n/a FMLA Forward to AA n/a Test/Consult not needed Communicate in Epic or Access n/a Record of decreased PFTs, known lung disease Any pulmonary consult n/a Pulmonary embolectomy Needs US/Duplex BLE, VQ scan RHC, possible LHC, Pulmonary and/or Vascular consult n/a Abnormal CT All>1cm if further workup/consult needed n/a CC-Bio Repostitory Notification of packet and general knowledge given to pt n/a Have you had a blood transfusion with the last 90 days No Have you been within the last 90 days No History of antibodies Choose correct Type and Screen order No [facility] 04-01-2025 Miscellaneous Notes OPD 8.11, Cath 8.12, Anibal held 8.13 @ 1200, [facility] 8.14.2024 MVr/MAZE Sternotomy (2) Discussed with Sahara and her the details regarding surgery scheduled with Dr. Callahan on 04.25. We reviewed the Dental Form and provided instructions for the last dose date of Eliquis, Jardiance, and any other anti-coagulants, vitamins, supplements, minerals, herbal products, NSAID's should be 8.8. Trish Delarosa RN April 01, 2025 2:00 PM Cardiac Surgery PreOp Checklist Patient Name: Sahara Meléndez OR Surgery Date: 04.25.25 TCI Appt. Date: 04.24.25 Primary Care Provider: Rosendo Brown MD Definition Comments Diabetes/Insulin Pump A1-c and Endo consult (need for pump pt) n/a Hypothyroid/thyroid nodules TSH/US of thyroid if new nodule n/a Stroke (CVA) Neurology consult n/a Dysphagia, stricture w/no recent dilation, Gray's Esophagus GI consult n/a Von Willebrand/thrombocytopenia/ Blood... Hematology consult n/a Abnormal labs from outside Place any necessary consults n/a Cardiac Cath Correct birthday/include all images/moving if outside cath ordered Redo OHS/Robotic surgery/radiation to chest CT or CTA/if outside CT will need in-house CXR, Cardiac MRI n/a Mechanical valve Admit for Heparin/Lovenox bridge n/a Female <50 y/o HCG n/a Heparin allergy hx of HIT Vascular Medicine consult n/a Nickel/Metal allergy Dermatology consult n/a Breast implants/Robotic candidates Plastic Surgery consult n/a Urinary strictures Urology consult/Urology consult to OR n/a All stimulators/spinal stimulator Type of stimulator n/a PPM/AICD Device check n/a Valve/TAVR/TEVAR/Myectomy/ascend ing aorta Dental clearance/Dental Consult at [facility] discussed CABG surgery with previous CABG/varicose vein/vein stripping Leg vein mapping n/a LMT disease > 30% or Carotid Bruits Carotid ultrasound n/a Descending Aneurysm/TEVAR/TAA Pre-admit/hydration/spinal drain to be placed: IR/OR/Not Needed n/a Dialysis patient IHD day prior to [facility] n/a CABG with no ECHO results Discussion w/surgeon results for dental clearance: preop/postop n/a Advanced Directives Instructions given to patient n/a FMLA Forward to AA n/a Test/Consult not needed Communicate in Epic or Access n/a Record of decreased PFTs, known lung disease Any pulmonary consult n/a Pulmonary embolectomy Needs US/Duplex BLE, VQ scan RHC, possible LHC, Pulmonary and/or Vascular consult n/a Abnormal CT All>1cm if further workup/consult needed n/a CC-Bio Repostitory Notification of packet and general knowledge given to pt n/a Have you had a blood transfusion with the last 90 days No Have you been within the last 90 days No History of antibodies Choose correct Type and Screen order No Surgeon Review Complete. NPM to contact with recommendations. Chart reviewed March 22, 2025. File given to Dr. Callahan for his review/plan of care. 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 EF%: 60 Thinners: Eliquis Smoking status: Never PMHX: IBS, arthritis, interstitial cystitis, bladder disease, hiatal hernia, GERD, esophagitis, ventricular ectopy, colitis, fibromyalgia, diverticulosis, Anxiety. Note: Jardiance Kathleen Semsel, [place] PATIENT Records in Epic Scanned Documents, Echos on Syngo. To NPM Patient has been referred to Dr. Callahan by Dr. Marie for MVR. documented in this encounter [facility] 03-28-2025 History of Presen t illness Narrative Summary: MRI Radiology Service Progress Note PATIENT NAME: Sahara Meléndez DATE OF SERVICE: March 28, 2025 TIME: 12:21 PM PATIENT IDENTITY VERIFICATION COMPLETED USING TWO (2) IDENTIFIERS: Name and Date of confirmed by patient verbally. FALL SCREENING: Has the patient had 2 falls in the last year or 1 fall with injury or currently using an Ambulatory Assistive Device (Walker, Cane, Wheelchair, Crutches, etc.)? No PATIENT GENDER DATA: Assigned female at . status: : No status: NO. PATIENT RELEVANT IMPLANT DATA REVIEWED: Yes PATIENT PRESENTS WITH AN IMPLANTABLE OR ATTACHED NETWORK CONTRACTOR: No RADIOLOGY DEPARTMENT: MR; Exam(s) Completed: Head: QUANT BRAIN. Aromatherapy Administered: No PERIPHERAL IV DATA: Not applicable SIGNED BY: MAKAYLA Lemon)(MR) March 28, 2025 12:21 PM documented in this encounter [facility] 03-28-2025 Note HNO ID: [id number] Author: MELANIA GARCÍA RT(Summer) Service: Radiology Author Type: Technologist Type: Progress Notes Filed: 03/28/2025 12:22 Note Text: Summary: MRI Radiology Service Progress Note PATIENT NAME: Sahara Meléndez DATE OF SERVICE: March 28, 2025 TIME: 12:21 PM PATIENT IDENTITY VERIFICATION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 35.25 kg/m Last 4 Encounter Wt Readings: Date: Wt: 02/25/2025 90.3 kg (199 lb) 01/25/2025 91.2 kg (201 lb) 01/11/2025 96 kg (211 lb 9.6 oz) 10/24/2024 95 kg (209 lb 6.4 oz) PHYSICAL EXAMINATION: GENERAL: NAD, alert and oriented. SKIN: Unremarkable, no rash or skin lesions. NECK: Supple, no lymphadenopathy, normal thyroid, no carotid bruits. LUNGS: Clear to auscultation bilaterally, no wheezes/rhonchi/rales. HEART: Regular rate and rhythm, soft murmur noted. No ectopy. EXTREMITIES: Normal, no deformities, no skin discoloration, no edema. NEURO: Awake, alert and oriented x3, cranial nerves II-XII grossly intact, normal gait, no involuntary motions. ASSESSMENT AND PLAN 1. Mitral valve insufficiency, unspecified etiology (I34.0) 2. Chronic diastolic (congestive) heart failure (HCC) (I50.32) 3. Paroxysmal atrial fibrillation (HCC) (I48.0) - Recent echocardiogram shows mitral valve prolapse with moderate (2+) mitral valve insufficiency and stage 2 diastolic dysfunction; LVEF is preserved at 65% with no wall motion abnormalities. - Cardiology adjusted medications: increased metoprolol and decreased furosemide. - No current dyspnea, chest discomfort, or significant edema. - Continue current medication regimen. - Monitor weight daily; report weight gain >3-4 lbs in 24 hours. - Follow-up with cardiology for ongoing management. 4. Irritable bowel syndrome with diarrhea (K58.0) - No current issues with diarrhea. 5. Esophagitis (K20.90) - No current dysphagia or heartburn. 6. Celiac disease (HCC) (K90.0) - No current gastrointestinal symptoms. 7. Class 2 severe obesity due to excess calories with serious comorbidity and body mass index (BMI) of 37.0 to 37.9 in adult (HCC) (E66.812) - Weight reduced from 211 lbs to 199 lbs since early January. - Continue weight management efforts. 8. Mild cognitive disorder (F09) - Memory issues persist. - Previous MRI and geriatrics follow-up were not completed. - Will assist in rescheduling MRI and appointment with Dr. Thompson. 9. Hordeolum externum of right upper eyelid (H00.011) - Residual palpable lump on right upper eyelid; no erythema or heat. - Continue warm compresses. - Advised to follow-up with [facility] for further evaluation. 10. Blood in stool (K92.1) - Recent stool test on 01/28 positive for occult blood. - Previous mild anemia improved; hemoglobin 14.3 g/dL, iron 116 mcg/dL, ferritin normal. - Discussed with Dr. David (GI); patient requires cardiac clearance before potential colonoscopy. - Advised against repeat stool test as it would not changer fixer. - Follow-up with GI to determine need for further investigation. (See patient after visit summary for additional instructions to patient) Rosendo Brown MD Recording using ambient [employer] software for draft documentation of the visit was discussed with the patient/authorized safety representative; all questions welcomed and answered. Patient/authorized safety representative agreed to proceed documented in this encounter [facility] 02-25-2025 Instructions Rosendo Brown MD - 02/25/2025 10:12 AM EDT - Take metoprolol at the higher dose your welt pocket machine operator prescribed. - Take furosemide (Lasix) at the lower dose your welt pocket machine operator prescribed. - Weigh yourself daily; if you gain more than 3-4 pounds in 24 hours, call our office. - Contact Dr. David s GI office to arrange cardiac clearance and proceed with your colon evaluation after the positive stool blood test. - Our staff will reach out to help you reschedule your MRI study and your geriatrics follow-up with Dr. Thompson. - Continue warm compresses on your right upper eyelid and schedule an ophthalmology appointment at [facility] to assess the remaining stye. documented in this encounter [facility] 02-05-2025 Telephone encounter Note Pt calling in to let Dr. Brown know that she contacted Dr. David's office about her +IFOBT as he did her last colonoscopy 3 years ago. She would like to see him instead of general surgery here at the clinic. Pt states that Dr. 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 +IFOBT result, OV note from 01/11/25 and phone encounter from 01/29/25 ready to be faxed to Dr. David's office. Awaiting Dr. Brown to sign gastroenterology referral order. (pended) [facility] 02-05-2025 Miscellaneous Notes Pt calling in to let Dr. Brown know that she contacted Dr. David's office about her +IFOBT as he did her last colonoscopy 3 years ago. She would like to see him instead of general surgery here at the clinic. Pt states that Dr. 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 +IFOBT result, OV note from 01/11/25 and phone encounter from 01/29/25 ready to be faxed to Dr. David's office. Awaiting Dr. Brown to sign gastroenterology referral order. (pended) documented in this encounter [facility] 02-05-2025 Telephone encounter Note Pt calling in to check on Dr. Brown's response. Cancelled both MRI of brain and pt's follow up with Dr. Thompson. Pt states she will reschedule once she has her heart taken care of. [facility] 02-05-2025 Miscellaneous Notes Pt calling in to check on Dr. Brown's response. Cancelled both MRI of brain and pt's follow up with Dr. Thompson. Pt states she will reschedule once she has her heart taken care of. That is fine. Patient calling asking if she can postpone the MRI Brain (appt mid February) and follow up with Dr Thompson (appt 03/04/2025)? She is having heart issues, afib issues. She said she has to have clip procedure done with her mitral valve, has appt with Antonio Espinosa NP on [facility], to find out when she is scheduled and where. She said she is has to much going on right now, can not handle much more at this time. Please advise documented in this encounter [facility] 02-05-2025 Telephone encounter Note That is fine. [facility] 02-05-2025 Telephone encounter Note Patient calling asking if she can postpone the MRI Brain (appt mid February) and follow up with Dr Thompson (appt 03/04/2025)? She is having heart issues, afib issues. She said she has to have clip procedure done with her mitral valve, has appt with Antonio Espinosa NP on 02/12/2025 at [facility], to find out when she is scheduled and where. She said she is has to much going on right now, can not handle much more at this time. Please advise [facility] 01-25-2025 Note HNO ID: [id number] Author: ROSENDO BROWN MD Service: ? Author Type: Physician Type: Progress Notes Filed: 01/25/2025 12:18 Note Text: Darek Salazar is a 79 year old female who presents for Hospital F/U History of Present Illness CHF and AFib: - Recent hospitalization at [facility] from 01/17 to 01/19 for CHF exacerbation and worsening AFib. - Presented with dyspnea and mild LE edema; CXR showed signs of heart failure. - Initial treatment included sotalol and Lasix; echocardiogram revealed: - EF of 60%. - Diastolic dysfunction. - Enlargement of left and right atria. - Worsening mitral valve function. - Discharged on amiodarone; metoprolol was initially stopped but later resumed at 50 mg BID by welt pocket machine operator Dr. San on 01/21. - Lisinopril was held by cardiology as well after med adjustments. - Reports improvement in dyspnea and no chest pain; able to lie down comfortably. - Occasional palpitations, similar to pre-hospitalization. - No significant LE edema, dizziness, or lightheadedness. - Not monitoring daily weights or blood pressure at home. - Follow-up with [facility] scheduled for next week. Memory Issues: - Noted by Sahara's daughter during recent hospitalization. - Referred to a plate shear operator for evaluation; did not complete recommended MRI and follow-up. Reinforced compliance. Gastrointestinal Issues: - Recent gastric emptying study was normal. - Reports improvement in nausea and diarrhea; using loperamide PRN. - Follow-up with Dr. David scheduled for today at 11:00. Stye: - Developed a stye on the right upper eyelid 2 days ago. no vision issues or discomfort. - No previous history of styes since childhood. Review of Systems Objective Blood pressure 110/64, pulse 92, weight 91.2 kg (201 lb), SpO2 98%. Physical Exam GENERAL: NAD, alert and oriented. SKIN: Unremarkable, no rash or skin lesions. HEAD: Normocephalic. EYES: PERRLA, EOMI, conjunctiva clear. Small stye on the upper right mid lid, no surrounding erythema. LUNGS: Clear to auscultation bilaterally, no wheezes/rhonchi/rales. HEART: Irregularly irregular rhythm, no change in murmur. No ectopy. EXTREMITIES: Normal, no deformities, no skin discoloration, no edema. NEURO: Awake, alert and oriented x3, cranial nerves II-XII grossly intact, normal gait, no involuntary motions. Results Labs: (01/17 to 01/19) - Laboratory tests: Relatively stable - Thyroid function: Normal Tests: (01/17 to 01/19) - EKG: QTC prolongation - Gastric emptying study: Normal Imaging: (01/17 to 01/19) - Chest X-ray: Findings consistent with heart failure - Echocardiogram: Ejection fraction 60% (normal), diastolic dysfunction, left and right atrial enlargement, worsened mitral valve function Assessment AND Plan 1. 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 Chronic diastolic (congestive) heart failure (HCC) (I50.32) 3. Nonrheumatic mitral (valve) insufficiency (I34.0) 4. Mitral valve insufficiency, unspecified etiology (I34.0) - Recent hospitalization from 01/17 to 01/19 for CHF exacerbation with SOB and peripheral edema; CXR confirmed heart failure. - Echocardiogram showed EF of 60% with diastolic dysfunction and atrial enlargement; mitral valve insufficiency noted. - Current medications include furosemide for fluid management. - Advised daily weight monitoring; instructed to report weight gain >4 lbs in 24 hours. - Follow-up with welt pocket machine operator Dr. Antonio San next week. - Discussed potential need for second opinion; patient prefers to wait. - Scheduled follow-up in one month to monitor progress. 5. Paroxysmal atrial fibrillation (HCC) (I48.0) 6. Ventricular arrhythmia (I49.9) - Recent hospitalization noted worsening AFib with increased heart rate. - Initial treatment with sotalol; transitioned to amiodarone and resumed metoprolol 50 mg BID. - QTc prolongation observed on EKG; cardiology managing medication adjustments. - Advised patient to report any worsening symptoms such as palpitations, dizziness, or chest pain. - Follow-up with cardiology next week. 7. Class 2 severe obesity due to excess calories with serious comorbidity and body mass index (BMI) of 37.0 to 37.9 in adult ([facility]) (E66.812) - Discussed impact of obesity on cardiac function and overall health. - Encouraged weight management strategies; will monitor progress in follow-up visits. 8. Irritable bowel syndrome with diarrhea (K58.0) 9. Celiac disease (HCC) (K90.0) 10. Nausea (R11.0) 11. Diarrhea, unspecified type (R19.7) - Recent gastric emptying study normal; thyroid function normal. - Symptoms of nausea and diarrhea have improved; currently managed with loperamide 2 mg PRN. - Follow-up with Dr. David scheduled today at 11:00 AM. 12. Memory loss (R41.3) - Patient reports ongoing memory issues; previous referral to geriatrics not fully followed. - (more content not included)... [facility] 01-25-2025 History of Presen t illness Narrative Darek Salazar is a 79 year old female who presents for Hospital F/U History of Present Illness CHF and AFib: - Recent hospitalization at [facility] from 01/17 to 01/19 for CHF exacerbation and worsening AFib. - Presented with dyspnea and mild LE edema; CXR showed signs of heart failure. - Initial treatment included sotalol and Lasix; echocardiogram revealed: - EF of 60%. - Diastolic dysfunction. - Enlargement of left and right atria. - Worsening mitral valve function. - Discharged on amiodarone; metoprolol was initially stopped but later resumed at 50 mg BID by welt pocket machine operator Dr. San on 01/21. - Lisinopril was held by cardiology as well after med adjustments. - Reports improvement in dyspnea and no chest pain; able to lie down comfortably. - Occasional palpitations, similar to pre-hospitalization. - No significant LE edema, dizziness, or lightheadedness. - Not monitoring daily weights or blood pressure at home. - Follow-up with [facility] scheduled for next week. Memory Issues: - Noted by Sahara's daughter during recent hospitalization. - Referred to a plate shear operator for evaluation; did not complete recommended MRI and follow-up. Reinforced compliance. Gastrointestinal Issues: - Recent gastric emptying study was normal. - Reports improvement in nausea and diarrhea; using loperamide PRN. - Follow-up with Dr. David scheduled for today at 11:00. Stye: - Developed a stye on the right upper eyelid 2 days ago. no vision issues or discomfort. - No previous history of styes since childhood. Review of Systems Objective Blood pressure 110/64, pulse 92, weight 91.2 kg (201 lb), SpO2 98%. Physical Exam GENERAL: NAD, alert and oriented. SKIN: Unremarkable, no rash or skin lesions. HEAD: Normocephalic. EYES: PERRLA, EOMI, conjunctiva clear. Small stye on the upper right mid lid, no surrounding erythema. LUNGS: Clear to auscultation bilaterally, no wheezes/rhonchi/rales. HEART: Irregularly irregular rhythm, no change in murmur. No ectopy. EXTREMITIES: Normal, no deformities, no skin discoloration, no edema. NEURO: Awake, alert and oriented x3, cranial nerves II-XII grossly intact, normal gait, no involuntary motions. Results Labs: (01/17 to 01/19) - Laboratory tests: Relatively stable - Thyroid function: Normal Tests: (01/17 to 01/19) - EKG: QTC prolongation - Gastric emptying study: Normal Imaging: (01/17 to 01/19) - Chest X-ray: Findings consistent with heart failure - Echocardiogram: Ejection fraction 60% (normal), diastolic dysfunction, left and right atrial enlargement, worsened mitral valve function Assessment & Plan 1. 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 Chronic diastolic (congestive) heart failure (HCC) (I50.32) 3. Nonrheumatic mitral (valve) insufficiency (I34.0) 4. Mitral valve insufficiency, unspecified etiology (I34.0) - Recent hospitalization from 01/17 to 01/19 for CHF exacerbation with SOB and peripheral edema; CXR confirmed heart failure. - Echocardiogram showed EF of 60% with diastolic dysfunction and atrial enlargement; mitral valve insufficiency noted. - Current medications include furosemide for fluid management. - Advised daily weight monitoring; instructed to report weight gain >4 lbs in 24 hours. - Follow-up with welt pocket machine operator Dr. Antonio San next week. - Discussed potential need for second opinion; patient prefers to wait. - Scheduled follow-up in one month to monitor progress. 5. Paroxysmal atrial fibrillation (HCC) (I48.0) 6. Ventricular arrhythmia (I49.9) - Recent hospitalization noted worsening AFib with increased heart rate. - Initial treatment with sotalol; transitioned to amiodarone and resumed metoprolol 50 mg BID. - QTc prolongation observed on EKG; cardiology managing medication adjustments. - Advised patient to report any worsening symptoms such as palpitations, dizziness, or chest pain. - Follow-up with cardiology next week. 7. Class 2 severe obesity due to excess calories with serious comorbidity and body mass index (BMI) of 37.0 to 37.9 in adult ([facility]) (E66.812) - Discussed impact of obesity on cardiac function and overall health. - Encouraged weight management strategies; will monitor progress in follow-up visits. 8. Irritable bowel syndrome with diarrhea (K58.0) 9. Celiac disease (HCC) (K90.0) 10. Nausea (R11.0) 11. Diarrhea, unspecified type (R19.7) - Recent gastric emptying study normal; thyroid function normal. - Symptoms of nausea and diarrhea have improved; currently managed with loperamide 2 mg PRN. - Follow-up with Dr. David scheduled today at 11:00 AM. 12. Memory loss (R41.3) - Patient reports ongoing memory issues; previous referral to geriatrics not fully followed. - Ordered MRI as part of memory loss evaluation. - Advised patient to follow up with plate shear operator Dr. Thompson for further assessment. 13. Anemia, unspecified type (D64.9) - Ordered CBC, iron studies, B12, folate, and ferritin to evaluate anemia status. - Labs to be completed today. 14. Hordeolum externum of right upper eyelid (H00.011) - Small stye on right upper eyelid; no surrounding erythema. - Recommended warm compresses. - Prescribed Bleph-10 ophthalmic drops. - Advised to report if no improvement in 7-10 days. Attestation documented in this encounter [facility] 01-25-2025 Instructions Rosendo Brown MD - 01/25/2025 8:45 AM EDT Continue taking metoprolol along with the newly started amiodarone for your heart rate control. Continue your blood thinner as prescribed for AFib. Check your weight every morning with your home scale. If you gain more than 4 pounds in a 24-hour period, call our office. Get the blood tests (CBC including anemia studies, iron, B12, folate, nepharitin, and a BMP for kidney function and electrolytes) ordered for today. Follow through with your appointment with Dr. David at 11:00 AM today regarding your gastrointestinal symptoms (diarrhea and nausea) and updates on your medications. Use loperamide only when necessary for diarrhea and mention any concerns about its strength to your provider. For the small stye on your right upper eyelid, apply warm compresses and use the Bleph 10 antibiotic eye drops as directed. If the stye does not improve within 7 to 10 days or worsens, please notify us. Reschedule the MRIs and a follow-up appointment with Dr. Thompson for your memory evaluation, as recommended. Continue to monitor for any new or worsening symptoms such as increased shortness of breath, chest pain, dizziness, swelling, or severe palpitations; report these if they occur. Keep your scheduled follow-up with Antonio San, cardiology, next week for additional review and medication adjustment regarding your heart condition. documented in this encounter [facility] 01-21-2025 Note HNO ID: [id number] Author: Brunilda GAMBINO RN Service: ? Author Type: Registered Nurse Type: Progress Notes Filed: 01/22/2025 10:32 Note Text: TRANSITION CARE MANAGEMENT (TCM) INITIAL CONTACT Commercial [employer] Specialist Outreach Provider Action/FYI: Pt would like a 2nd opinion from a welt pocket machine operator regarding her diagnoses. Initial contact with patient post discharge, spoke to patient. Patient identified by name and . TRANSITION CARE MANAGEMENT INITIAL OUTREACH DOCUMENTATION: No data to display SUMMARY: -Pt discharged from [facility] on 01/19/25. -Admitted for: Afib with RVR Discharge DX 1-pulmonary edema 2-dyspnea on exertion 3-paroxysmal atrial fib 4-nausea 5-memory loss Do you have a hospital follow up appointment with your PCP? Appointment on 01/25/25 @ [address] Brown. Yes. Remind patient of appointment date, time, and location. If not within 14 calendar days of discharge - please reschedule accordingly. MEDICATIONS: Many patients have questions or concerns about their medications once they are home. Were you prescribed any new medications? If yes, what are those medications? Lisinopril 5 mg, potassium 20 meq, furosemide 40 mg, jardiance 10 mg, amiodarone 200 mg, ondansetron 4 mg Were you told to hold any medications? If yes, what are those medications? [facility] took pt off of metoprolol. Pt saw Dr. San (cardiology [facility]) yesterday and he wants her to take metoprolol tartrate 50 mg bid and stop taking lisinopril. Pt has appt with Dr. San next Tuesday. Were any of your medications discontinued? If yes, what are those medications? Metoprolol tartrate 50 mg twice a day Do you have any questions about getting or taking your medications? No Your discharge instructions/After visit Summary (AVS) are important in guiding you through the recovery process. Is there anything I might help you understand? No Do you have all the necessary equipment and supplies at home? Yes Medical records from recent hospitalization: Care Everywhere [facility] 01-21-2025 History of Presen t illness Narrative Images from the original note were not included. TRANSITION CARE MANAGEMENT (TCM) INITIAL CONTACT Commercial Credit Specialist Outreach Provider Action/FYI: Pt would like a 2nd opinion from a welt pocket machine operator regarding her diagnoses. Initial contact with patient post discharge, spoke to patient. Patient identified by name and . TRANSITION CARE MANAGEMENT INITIAL OUTREACH DOCUMENTATION: No data to display SUMMARY: -Pt discharged from [facility] on 01/19/25. -Admitted for: Afib with RVR Discharge DX 1-pulmonary edema 2-dyspnea on exertion 3-paroxysmal atrial fib 4-nausea 5-memory loss Do you have a hospital follow up appointment with your PCP? Appointment on 01/25/25 @ [address] Brown. Yes. Remind patient of appointment date, time, and location. If not within 14 calendar days of discharge - please reschedule accordingly. MEDICATIONS: Many patients have questions or concerns about their medications once they are home. Were you prescribed any new medications? If yes, what are those medications? Lisinopril 5 mg, potassium 20 meq, furosemide 40 mg, jardiance 10 mg, amiodarone 200 mg, ondansetron 4 mg Were you told to hold any medications? If yes, what are those medications? [facility] took pt off of metoprolol. Pt saw Dr. San (cardiology [facility]) yesterday and he wants her to take metoprolol tartrate 50 mg bid and stop taking lisinopril. Pt has appt with Dr. San next Tuesday. Were any of your medications discontinued? If yes, what are those medications? Metoprolol tartrate 50 mg twice a day Do you have any questions about getting or taking your medications? No Your discharge instructions/After visit Summary (AVS) are important in guiding you through the recovery process. Is there anything I might help you understand? No Do you have all the necessary equipment and supplies at home? Yes Medical records from recent hospitalization: Care Everywhere documented in this encounter [facility] 01-21-2025 Note Patient Outreach (LEE MPWS) SAHARA MELÉNDEZ ([id number]) 1945 F NFR Date Time Provider Department 01/21/25 ROSENDO BROWN During your visit today, we recorded the following information about you: Brunilda Gambino RN 01/22/2025 10:32 AM Signed TRANSITION CARE MANAGEMENT (TCM) INITIAL CONTACT Commercial Credit Specialist Outreach Provider Action/FYI: Pt would like a 2nd opinion from a welt pocket machine operator regarding her diagnoses. Initial contact with patient post discharge, spoke to patient. Patient identified by name and . TRANSITION CARE MANAGEMENT INITIAL OUTREACH DOCUMENTATION: No data to display SUMMARY: -Pt discharged from [facility] on 01/19/25. -Admitted for: Afib with RVR Discharge DX 1-pulmonary edema 2-dyspnea on exertion 3-paroxysmal atrial fib 4-nausea 5-memory loss Do you have a hospital follow up appointment with your PCP? Appointment on 01/25/25 @ [address] Brown. Yes. Remind patient of appointment date, time, and location. If not within 14 calendar days of discharge - please reschedule accordingly. MEDICATIONS: Many patients have questions or concerns about their medications once they are home. Were you prescribed any new medications? If yes, what are those medications? Lisinopril 5 mg, potassium 20 meq, furosemide 40 mg, jardiance 10 mg, amiodarone 200 mg, ondansetron 4 mg Were you told to hold any medications? If yes, what are those medications? [facility] took pt off of metoprolol. Pt saw Dr. San (cardiology [facility]) yesterday and he wants her to take metoprolol tartrate 50 mg bid and stop taking lisinopril. Pt has appt with Dr. San next Tuesday. Were any of your medications discontinued? If yes, what are those medications? Metoprolol tartrate 50 mg twice a day Do you have any questions about getting or taking your medications? No Your discharge instructions/After visit Summary (AVS) are important in guiding you through the recovery process. Is there anything I might help you understand? No Do you have all the necessary equipment and supplies at home? Yes Medical records from recent hospitalization: Care Everywhere Allergies As of Date: 01/21/2025 Noted Allergy Reaction BENTYL (DICYCLOMINE HCL) 08/13/2013 1 - Mental Status Change CIPROFLOXACIN 05/24/2014 4 - Hives 14 - Other: See Comments Comments: IV Cipro only Pain at IV site COMPAZINE (PROCHLORPERAZINE EDISY*09/07/2005 5 - Intolerance Comments: [place] like she was coming out of her skin DILAUDID (HYDROMORPHONE (BULK)) 09/07/2005 5 - Intolerance E-MYCIN (ERYTHROMYCIN) 09/07/2005 8 - GI Upset LATEX 07/26/2007 2 - Rash Date Reviewed: 01/11/2025 Reviewed by: Mya Corbin MA - Fully Assessed Reason for Visit: Transition Of Care [4074] Prescriptions as of 01/22/2025 - atorvastatin (LIPITOR) 40 mg tablet Take 1 tablet by mouth once daily. - CPAP/BIPAP/OTHER Type .CPAPSettings into a note to see current settings/supplies/DME information. - colestipol (COLESTID) 1 gram tablet Take 1 tablet by mouth once daily. Dr David - albuterol HFA (VENTOLIN HFA) 90 mcg/actuation inhaler Inhale 2 Puffs as instructed every 4 hours as needed for wheezing/shortness of breath. - escitalopram oxalate (LEXAPRO) 10 mg tablet Take 1 tablet by mouth once daily. - omeprazole (PRILOSEC) 20 mg capsule Take 1 capsule by mouth daily before breakfast. 1/2 hr before meal. - budesonide, enteric coated (ENTOCORT EC) 3 mg 24 hr capsule Take 9 mg by mouth once daily. Dr. David - cephALEXin (KEFLEX) 250 mg capsule Take 250 mg by mouth daily at bedtime. Dr Ayala - Cranberry 500 mg cap Take 500 mg by mouth three times daily. - ascorbic acid, vitamin C, (VITAMIN C) 500 mg tablet Take 500 mg by mouth once daily. - metoprolol tartrate, short acting, (LOPRESSOR) 50 mg tablet Take 50 mg by mouth twice daily. - ELIQUIS 5 mg tab(s) Take 5 mg by mouth twice daily. - clotrimazole-betamethasone (LOTRISONE) cream Apply 1 application to affected area twice daily. - estradiol (ESTRACE) 0.01 % (0.1 mg/gram) vaginal cream Use 1 g vaginally as directed. Insert 1 gram vaginally at bedtime every night for 14 nights then 1 gm vaginally twice a week. - loperamide (IMODIUM) 2 mg cap(s) Take 3 daily, as needed. - nitroglycerin sublingual (NITROQUICK) 0.4 mg SL tablet Dissolve 1 tablet under the tongue as needed. for chest pain,every 5 min x3 - CAFFEINE ORAL Take 0.5 tablets by mouth once daily. - acetaminophen (TYLENOL) 325 mg tablet Take 2 tablets by mouth every 4 hours as needed. FOR PAIN. - MULTIVITAMIN TAB Take one(1) tablet daily. Meds Comments as of 02/13/2023: 02/13/2023 11:25 AM New medications over last one month: Baby Aspirin, Atorvastatin, Eloquis, Metoprolol Tartrate, Loperamide. Melania Condon RN Problem List As Of Date 01/21/2025 Noted Resolved Palpitations [R00.2] 01/14/1998 04/27/20 (more content not included)... [facility] 01-19-2025 Note [facility] Medical Records Department [address] [place] [address] Discharge Summary 01/19/25 1115 MR#: [id number] Acct: [id number] Name: SAHARA MELÉNDEZ Rep #: [id number] : 1945 79 From: Veronica Louise DO PCP: Dr. Rosendo Brown MD Status:DIS IN Location: [place] [address] Providers Date of Admission: 01/17/25 Date of Discharge: 01/19/25 Primary Care Physician: Dr. Rosendo Brown MD Reason For Visit: AFIB WITH RVR Diagnosis Discharge Diagnosis (1) Pulmonary edema: Status: Acute Code(s): J81.1 - Chronic pulmonary edema (2) Dyspnea on exertion: Status: Acute Code(s): R06.09 - Other forms of dyspnea (3) Paroxysmal atrial fibrillation: Status: Acute Code(s): I48.0 - Paroxysmal atrial fibrillation (4) Nausea: Status: Acute Code(s): R11.0 - Nausea (5) Memory loss: Status: Acute Code(s): R41.3 - Other amnesia Plan Paroxysmal atrial fibrillation - converted to NSR -Has not had any Eliquis doses missed -Echo shows worsening MV disease and pt would likely benefit from intervention -ECHO shows EF 60%, Diastolic Dysfunction, severely enlarged LA, Mod enlarged RA with severe MVI and RVSP 50 mmHg - Qtc prolonged today so sotolol stopped - Repeat EKG in a.m. this evening -if Qtc better tonight then start amiodarone and repeat EKG in am - d/c metoprolol at discharge - Cardiology following Shortness of breath with exertion secondary to acute HFpEF - Last echo with normal EF however suspect her RVR has kicked her into some heart failure - proBNP is elevated for her age - stop lasix IV and change to PO BID - will give K replacement - Will monitor renal function electrolytes Nausea - Patient with morning nausea has been quite debilitating -non this am - TSH WNL - Gastric emptying study WNL - Patient does follow with Dr. David - PRN Zojustine ODT available - Outpt f/u with GI Memory loss - Daughter is concerned because her memory has been extremely poor in the last several months - TSH--> WNL - B12 level--> WNL - Folic acid pending - recommend outpt neurology follow up Celiac's disease - Continue follow-up with Dr. David after discharge - Patient with chronic diarrhea and related to this History of interstitial cystitis - No current complaints Hyperlipidemia - Continue atorvastatin Anxiety/depression - Continue home escitalopram Obesity - BMI 36.3 -Recommend weight loss - Patient should likely have outpatient polysomnography especially with atrial fibrillation diagnosis - Will recommend a discharge DVT prophylaxis - Continue home Eliquis CODE STATUS - Full code as discussed on admission Medications at Discharge Home Medications multivitamin 1 tab PO DAILY health maintenance 01/20/23 ascorbic acid (vitamin C) 500 mg tablet (C-500) 500 mg PO DAILY 03/18/23 cranberry 500 mg capsule 500 mg PO TID 03/18/23 atorvastatin 40 mg tablet 40 mg PO QHS 05/19/23 lactobacillus combination no.9 4 billion cell capsule (Adult 50 Plus Probiotic) 4,000 mmu cells PO DAILY 05/19/23 acetaminophen 500 mg tablet 1,000 mg PO DAILY pain 01/25/24 simethicone 80 mg chewable tablet (Gas Relief (simethicone)) 80 mg PO BID 01/25/24 ubrogepant 100 mg tablet (Ubrelvy) mg PO .0prn PRN headache 01/25/24 escitalopram oxalate 5 mg tablet (Lexapro) 5 mg PO DAILY 05/10/24 nitroglycerin 0.4 mg sublingual tablet 0.4 mg sublingual Q5-15M PRN Chest Pain #25 tabs 07/26/24 apixaban 5 mg tablet (Eliquis) 5 mg PO BID #180 tabs 11/08/24 amiodarone 200 mg tablet 200 mg PO DAILY #30 tabs 01/19/25 empagliflozin 10 mg tablet (Jardiance) 10 mg PO DAILY #30 tabs 01/19/25 furosemide 40 mg tablet 40 mg PO BIDLX #60 tabs 01/19/25 lisinopril 5 mg tablet 5 mg PO BID #30 tabs 01/19/25 ondansetron 4 mg disintegrating tablet 8 mg (2 x 4 mg) PO Q8H PRN PRN Nausea/Vomiting #30 tabs 01/19/25 potassium chloride 20 mEq tablet,extended release(part/cryst) 20 meq PO BIDCM #60 tabs 01/19/25 Hospital Course Operations None Procedures 2-D Echocardiogram, EKG and - (Gastric emptying study) Summary of Care Provided Minutes Spent on Discharge: 37 Hospital Course: SAHARA MELÉNDEZ, is a 79 F who presented to the emergency department [facility] on 01/17/2025 with a chief complaint of shortness of breath. She reported been ongoing for about a week and she came in around 5:30 in the morning because it had clinically gotten worse. 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 She was noted to be in A-fib yesterday and it was thought that she had been in this for possibly a while with RVR and was distant from that so they plan to cardioversion 4 01/18/2025. Patient thinks she may have had some swelling in her legs but denies any fever or chills. She does state that she has nausea (more content not included)... [facility] 01-18-2025 Progress note Note Date/Time January 18, 2025 2:08pm [facility] Medical Records Department [address] [place] [address] Progress Note - Hospitalist 01/18/25 1339 MR#: [id number] Acct: [id number] Name: SAHARA MELÉNDEZ Rep #:[id number] : 1945 79 From: Veronica Louise DO PCP: Dr. Rosendo Brown MD Status:ADM I N Location: [place] [address]- Reason for Visit Reason for Visit: Shortness of Breath Subjective Subjective No nausea this am. Feels better overall. No SOB with exertion this am. Objective Data Objective Data Vital Signs: Vital Signs Temp Pulse Resp BP Pulse Ox O2 Del Method 97.0 F L 60 16 117/47 L 94 Room Air 01/18/25 10:54 01/18/25 10:54 01/18/25 10:54 01/18/25 10:54 01/18/25 10:54 01/18/25 10:54 Oxygen Delivery Method Room Air Weight: 93 kg Body Mass Index (BMI) 36.3 Lab / Micro Data 01/18/25 04:17 01/18/25 04:17 Labs: Laboratory Results - last 24 hr 01/17/25 17:00: Troponin T High Sens 13 D 01/17/25 19:00: Troponin T Hi Sens 2 Hr 12 01/17/25 19:15: Vitamin B12 842 01/17/25 20:36: Troponin T Hi Sens 4Hr 13 01/18/25 04:17: WBC 8.4, RBC 3.92 L, Hgb 11.9 L, Hct 36.2 L, MCV 92.3, MCH 30.4,MCHC 32.9, RDW Std Deviation 49.1 H, RDW Coeff of Laina 14.6, Plt Count 245, MPV 10.3, Immature Gran % (Auto) 0.400, Neut % (Auto) 67.9, Lymph % (Auto) 17.9 L, Dewitt % (Auto) 10.7 H, Eos % (Auto) 2.5, Baso % (Auto) 0.6, Absolute Neuts (auto) 5.7, Absolute Lymphs (auto) 1.50, Nucleated RBC % 0, Sodium 143, Potassium 3.5, Chloride 105, Carbon Dioxide 28.6, Anion Gap 10, BUN 16, Creatinine 0.67 L, Estim Creat Clear Calc 63.17, Est GFR (MDRD) Non-Af 89, BUN/Creatinine Ratio 24.4 H, Glucose 108 H, Calcium 9.4, Phosphorus 4.0, Magnesium 2.1, Total Bilirubin 0.83, AST 23, ALT 19, Alkaline Phosphatase 71, Total Protein 6.5, Albumin 3.5, Globulin 3.0, Albumin/Globulin Ratio 1.2, TSH 3.120 Radiography Diagnostic Testing: Radiology Impression Gastric Emptying Nuclear Medicine 01/18/25 09:00 IMPRESSION: Normal semi solid phase gastric emptying. Reading Location: [facility] Rhythm Strip Rhythm Strip: A-fib Rate: 85 Ectopy: PVC(s) Physical Exam Const alert, oriented x3, no apparent distress and well nourished; Negative for average body habitus Constitutional Narrative: Morbidly obese, older, white female, lying in bed, appears comfortable, nontoxic, family at bedside General Appearance: cooperative HEENT normocephalic, head/scalp atraumatic and moist oral mucous membranes Eyes Eyes Narrative: No scleral icterus Resp normal respiratory effort, no retractions, no use of accessory muscles and clearto auscultation bilaterally Auscultation: Negative for crackles, rhonchi or wheezes Cardio regular rate, regular rhythm, S1 normal heart sound, S2 normal heart sound, no rub, no gallops and no clicks; Negative for no murmurs GI normal to inspection, nondistended, normoactive bowel sounds, soft to palpation and non-tender Neuro oriented x3, moves all extremities and no focal motor deficits Neuro Narrative: Intermittently forgetful Speech: speech normal Psych affect normal Psych Narrative: Pleasant, interacts appropriately Assessment & Plan Assessment/Plan (1) Pulmonary edema: (2) Dyspnea on exertion: (3) Paroxysmal atrial fibrillation: (4) Nausea: (5) Memory loss: PLAN: Plan Paroxysmal atrial fibrillation - converted to NSR -Has not had any Eliquis doses missed -Echo shows worsening MV disease and pt would likely benefit from intervention -ECHO shows EF 60%, Diastolic Dysfunction, severely enlarged LA, Mod enlargedRA with severe MVI and RVSP 50 mmHg - Qtc prolonged today so sotolol stopped - Repeat EKG in a.m. this evening -if Qtc better tonight then start amiodarone and repeat EKG in am - d/c metoprolol at discharge - Cardiology following Shortness of breath with exertion secondary to acute HFpEF - Last echo with normal EF however suspect her RVR has kicked her into some heart failure - proBNP is elevated for her age - stop lasix IV and change to PO BID - will give K replacement - Will monitor renal function electrolytes Nausea - Patient with morning nausea has been quite debilitating -non this am - TSH WNL - Gastric emptying study WNL - Patient does follow with DrCj Friend - MIC Patton ODT available - Outpt f/u with GI Memory loss - Daughter is concerned because her memory has been extremely poor in the last several months - TSH--> WNL - B12 level--> WNL - Folic acid pending - recommend outpt neurology follow up Celiac's disease - Continue follow-up with Dr. Friend after discharge - Patient with chronic diarrhea and related to this History of interstitial cystitis - No current complaints Hyperlipidemia - Continue atorvastatin Anxiety/depression - Continue home escitalopram Obesity - BMI 36.3 -Recommend weight loss - Patient should likely have outpatient polysomnography especially with atrial fibrillation diagnosis - Will recommend a discharge DVT prophylaxis - Continue home Eliquis CODE STATUS - Full code as discussed on admission Charges/Coding Visit Charges Inpatient E&M: 35792 Subs Hosp L2 01/18/25 1408 <Electronically signed by Veronica Louise DO> Cosigner Signature (if applicable): CC: ~ Signed [facility] Work Phone: 1(821) 249-751705-09-2025 Progress note Author Liat Hale [facility] Note Date/Time January 18, 2025 12:40p m [facility] Medical Records Department [address] [place] [address] Progress Note - Cardiology 01/18/25 1235 MR#: [id number] Acct: [id number] Name: SAHARA MELÉNDEZ Rep #:[id number] : 1945 79 From: Liat Hale MD PCP: Dr. Rosendo Brown MD Status:ADM I N Location: [place] [address] Subjective Subjective Denies any complaints today. Objective Data Vital Signs: Vital Signs Temp Pulse Resp BP Pulse Ox O2 Del Method 97.0 F L 60 16 117/47 L 94 Room Air 01/18/25 10:54 01/18/25 10:54 01/18/25 10:54 01/18/25 10:54 01/18/25 10:54 01/18/25 10:54 Oxygen Delivery Method Room Air Weight: 205 lb 0.478 oz Body Mass Index (BMI) 36.3 Lab / Micro Data 01/18/25 04:17 01/18/25 04:17 Labs: Laboratory Results - last 24 hr 01/17/25 17:00: Troponin T High Sens 13 D 01/17/25 19:00: Troponin T Hi Sens 2 Hr 12 01/17/25 19:15: Vitamin B12 842 05/08/25 20:36: Troponin T Hi Sens 4Hr 13 01/18/25 04:17: WBC 8.4, RBC 3.92 L, Hgb 11.9 L, Hct 36.2 L, MCV 92.3, MCH 30.4,MCHC 32.9, RDW Std Deviation 49.1 H, RDW Coeff of Laina 14.6, Plt Count 245, MPV 10.3, Immature Gran % (Auto) 0.400, Neut % (Auto) 67.9, Lymph % (Auto) 17.9 L, Dewitt % (Auto) 10.7 H, Eos % (Auto) 2.5, Baso % (Auto) 0.6, Absolute Neuts (auto) 5.7, Absolute Lymphs (auto) 1.50, Nucleated RBC % 0, Sodium 143, Potassium 3.5, Chloride 105, Carbon Dioxide 28.6, Anion Gap 10, BUN 16, Creatinine 0.67 L, Estim Creat Clear Calc 63.17, Est GFR (MDRD) Non-Af 89, BUN/Creatinine Ratio 24.4 H, Glucose 108 H, Calcium 9.4, Phosphorus 4.0, Magnesium 2.1, Total Bilirubin 0.83, AST 23, ALT 19, Alkaline Phosphatase 71, Total Protein 6.5, Albumin 3.5, Globulin 3.0, Albumin/Globulin Ratio 1.2, TSH 3.120 Rhythm Strip Rhythm Strip: A-fib Rate: 85 Ectopy: PVC(s) Cardiology Labs/Tests 01/18/25 04:17: WBC 8.4, RBC 3.92 L, Hgb 11.9 L, Hct 36.2 L, MCV 92.3, MCH 30.4,MCHC 32.9, Plt Count 245, MPV 10.3, Immature Gran % (Auto) 0.400, Neut % (Auto) 67.9, Lymph % (Auto) 17.9 L, Dewitt % (Auto) 10.7 H, Eos % (Auto) 2.5, Baso % (Auto) 0.6, Absolute Neuts (auto) 5.7, Nucleated RBC % 0, Sodium 143, Potassium 3.5, Chloride 105, Carbon Dioxide 28.6, Anion Gap 10, BUN 16, Creatinine 0.67 L,Est GFR (MDRD) Non-Af 89, BUN/Creatinine Ratio 24.4 H, Glucose 108 H, Calcium 9.4, Phosphorus 4.0, Magnesium 2.1, Total Bilirubin 0.83 Rhythm: EKG: ECHO: Stress Test: Cardiac Cath: PCI: CT Surgery: Holter monitor: EPS: PPM: CXR: Chest CT Scan: Radiography Diagnostic Testing: Radiology Impression Gastric Emptying Nuclear Medicine 01/18/25 09:00 IMPRESSION: Normal semi solid phase gastric emptying. Reading Location: [place] [address] Physical Exam Narrative Comfortable. No apparent distress. Heart sounds 1 and 2 normal. Chest clear to auscultation bilaterally. No ankle edema. Assessment & Plan Assessment/Plan (1) Paroxysmal atrial fibrillation: PLAN: Presently normal sinus rhythm. Started on sotalol yesterday. QTc prolonged this morning. DC sotalol. Repeat ECG tomorrow morning. If QT has normalized, then will start on amiodarone. (2) Mitral regurgitation: PLAN: Continue diuretics. Start on ACEI for afterload reduction. Reevaluate asoutpatient and consider referral to CT surgery for valve repair. (3) Chronic heart failure with preserved ejection fraction (HFpEF): PLAN: Diuretics. Change furosemide to p.o. Start on SGLT2 inhibitor. 01/18/25 1240 <Electronically signed by Liat Hale MD> Cosigner Signature (if applicable): CC: ~ Signed [facility] Work Phone: 1(335) 694-592805-09-2025 Progress note [facility] Medical Records Department [address] [place] [address] Progress Note - Hospitalist 01/18/25 1339 MR#: [id number] Acct: [id number] Name: SAHARA MELÉNDEZ Rep #:[id number] : 1945 79 From: Veronica Louise DO PCP: Dr. Rosendo Brown MD Status:ADM I N Location: [place] [address] Reason for Visit Reason for Visit: Shortness of Breath Subjective Subjective No nausea this am. Feels better overall. No SOB with exertion this am. Objective Data Objective Data Vital Signs: Vital Signs Temp Pulse Resp BP Pulse Ox O2 Del Method 97.0 F L 60 16 117/47 L 94 Room Air 01/18/25 10:54 01/18/25 10:54 01/18/25 10:54 01/18/25 10:54 01/18/25 10:54 01/18/25 10:54 Oxygen Delivery Method Room Air Weight: 93 kg Body Mass Index (BMI) 36.3 Lab / Micro Data 01/18/25 04:17 01/18/25 04:17 Labs: Laboratory Results - last 24 hr 01/17/25 17:00: Troponin T High Sens 13 D 01/17/25 19:00: Troponin T Hi Sens 2 Hr 12 01/17/25 19:15: Vitamin B12 842 01/17/25 20:36: Troponin T Hi Sens 4Hr 13 01/18/25 04:17: WBC 8.4, RBC 3.92 L, Hgb 11.9 L, Hct 36.2 L, MCV 92.3, MCH 30.4,MCHC 32.9, RDW Std Deviation 49.1 H, RDW Coeff of Laina 14.6, Plt Count 245, MPV 10.3, Immature Gran % (Auto) 0.400, Neut% (Auto) 67.9, Lymph % (Auto) 17.9 L, Dewitt % (Auto) 10.7 H, Eos % (Auto) 2.5, Baso % (Auto) 0.6, Absolute Neuts (auto) 5.7, Absolute Lymphs (auto) 1.50, Nucleated RBC % 0, Sodium 143, Potassium 3.5, Chloride 105, Carbon Dioxide 28.6, Anion Gap 10, BUN 16, Creatinine 0.67 L, Estim Creat Clear Calc 63.17, Est GFR (MDRD) Non-Af 89, BUN/Creatinine Ratio 24.4 H, Glucose 108 H, Calcium 9.4, Phosphorus 4.0, Magnesium 2.1, Total Bilirubin 0.83, AST 23, ALT 19, Alkaline Phosphatase 71, Total Protein 6.5, Albumin 3.5, Globulin 3.0, Albumin/Globulin Ratio 1.2, TSH 3.120 Radiography Diagnostic Testing: Radiology Impression Gastric Emptying Nuclear Medicine 01/18/25 09:00 IMPRESSION: Normal semi solid phase gastric emptying. Reading Location: [facility] Rhythm Strip Rhythm Strip: A-fib Rate: 85 Ectopy: PVC(s) Physical Exam Const alert, oriented x3, no apparent distress and well nourished; Negative for average body habitus Constitutional Narrative: Morbidly obese, older, white female, lying in bed, appears comfortable, nontoxic, family at bedside General Appearance: cooperative HEENT normocephalic, head/scalp atraumatic and moist oral mucous membranes Eyes Eyes Narrative: No scleral icterus Resp normal respiratory effort, no retractions, no use of accessory muscles and clearto auscultation bilaterally Auscultation: Negative for crackles, rhonchi or wheezes Cardio regular rate, regular rhythm, S1 normal heart sound, S2 normal heart sound, no rub, no gallops and no clicks; Negative for no murmurs GI normal to inspection, nondistended, normoactive bowel sounds, soft to palpation and non-tender Neuro oriented x3, moves all extremities and no focal motor deficits Neuro Narrative: Intermittently forgetful Speech: speech normal Psych affect normal Psych Narrative: Pleasant, interacts appropriately Assessment & Plan Assessment/Plan (1) Pulmonary edema: (2) Dyspnea on exertion: (3) Paroxysmal atrial fibrillation: (4) Nausea: (5) Memory loss: PLAN: Plan Paroxysmal atrial fibrillation - converted to NSR -Has not had any Eliquis doses missed -Echo shows worsening MV disease and pt would likely benefit from intervention -ECHO shows EF 60%, Diastolic Dysfunction, severely enlarged LA, Mod enlargedRA with severe MVI andRVSP 50 mmHg - Qtc prolonged today so sotolol stopped - Repeat EKG in a.m. this evening -if Qtc better tonight then start amiodarone and repeat EKG in am - d/c metoprolol at discharge - Cardiology following Shortness of breath with exertion secondary to acute HFpEF - Last echo with normal EF however suspect her RVR has kicked her into some heart failure - proBNP is elevated for her age - stop lasix IV and change to PO BID - will give K replacement - Will monitor renal function electrolytes Nausea - Patient with morning nausea has been quite debilitating -non this am - TSH WNL - Gastric emptying study WNL - Patient does follow with Dr. David - MIC Patton ODT available - Outpt f/u with GI Memory loss - Daughter is concerned because her memory has been extremely poor in the last several months - TSH--> WNL - B12 level--> WNL - Folic acid pending - recommend outpt neurology follow up Celiac's disease - Continue follow-up with Friend after discharge - Patient with chronic diarrhea and related to this History of interstitial cystitis - No current complaints Hyperlipidemia - Continue atorvastatin Anxiety/depression - Continue home escitalopram Obesity - BMI 36.3 -Recommend weight loss - Patient should likely have outpatient polysomnography especially with atrial fibrillation diagnosis - Will recommend a discharge DVT prophylaxis - Continue home Eliquis CODE STATUS - Full code as discussed on admission Charges/Coding Visit Charges Inpatient E&M: 65742 Subs Hosp L2 01/18/25 1408 Cosigner Signature (if applicable): CC: ~ Signed [facility]05-09-2025 Progress note [facility] Medical Records Department [address] [place] [address] Progress Note - Cardiology 01/18/25 1235 MR#: [id number] Acct: [id number] Name: SAHARA MELÉNDEZ Rep #:[id number] : 1945 79 From: Liat Hale MD PCP: Dr. Rosendo Brown MD Status:ADM I N Location: [place] [address] Subjective Subjective Denies any complaints today. Objective Data Vital Signs: Vital Signs Temp Pulse Resp BP Pulse Ox O2 Del Method 97.0 F L 60 16 117/47 L 94 Room Air 01/18/25 10:54 01/18/25 10:54 01/18/25 10:54 01/18/25 10:54 01/18/25 10:54 01/18/25 10:54 Oxygen Delivery Method Room Air Weight: 205 lb 0.478 oz Body Mass Index (BMI) 36.3 Lab / Micro Data 01/18/25 04:17 01/18/25 04:17 Labs: Laboratory Results - last 24 hr 01/17/25 17:00: Troponin T High Sens 13 D 01/17/25 19:00: Troponin T Hi Sens 2 Hr 12 01/17/25 19:15: Vitamin B12 842 01/17/25 20:36: Troponin T Hi Sens 4Hr 13 01/18/25 04:17: WBC 8.4, RBC 3.92 L, Hgb 11.9 L, Hct 36.2 L, MCV 92.3, MCH 30.4,MCHC 32.9, RDW Std Deviation 49.1 H, RDW Coeff of Laina 14.6, Plt Count 245, MPV 10.3, Immature Gran % (Auto) 0.400, Neut% (Auto) 67.9, Lymph % (Auto) 17.9 L, Dewitt % (Auto) 10.7 H, Eos % (Auto) 2.5, Baso % (Auto) 0.6, Absolute Neuts (auto) 5.7, Absolute Lymphs (auto) 1.50, Nucleated RBC % 0, Sodium 143, Potassium 3.5, Chloride 105, Carbon Dioxide 28.6, Anion Gap 10, BUN 16, Creatinine 0.67 L, Estim Creat Clear Calc 63.17, Est GFR (MDRD) Non-Af 89, BUN/Creatinine Ratio 24.4 H, Glucose 108 H, Calcium 9.4, Phosphorus 4.0, Magnesium 2.1, Total Bilirubin 0.83, AST 23, ALT 19, Alkaline Phosphatase 71, Total Protein 6.5, Albumin 3.5, Globulin 3.0, Albumin/Globulin Ratio 1.2, TSH 3.120 Rhythm Strip Rhythm Strip: A-fib Rate: 85 Ectopy: PVC(s) Cardiology Labs/Tests 01/18/25 04:17: WBC 8.4, RBC 3.92 L, Hgb 11.9 L, Hct 36.2 L, MCV 92.3, MCH 30.4,MCHC 32.9, Plt Count 245, MPV 10.3, Immature Gran % (Auto) 0.400, Neut % (Auto) 67.9, Lymph % (Auto) 17.9 L, Dewitt % (Auto) 10.7 H, Eos % (Auto) 2.5, Baso % (Auto) 0.6, Absolute Neuts (auto) 5.7, Nucleated RBC % 0, Sodium 143, Potassium 3.5, Chloride 105, Carbon Dioxide 28.6, Anion Gap 10, BUN 16, Creatinine 0.67 L,EstGFR (MDRD) Non-Af 89, BUN/Creatinine Ratio 24.4 H, Glucose 108 H, Calcium 9.4, Phosphorus 4.0, Magnesium 2.1, Total Bilirubin 0.83 Rhythm: EKG: ECHO: Stress Test: Cardiac Cath: PCI: CT Surgery: Holter monitor: EPS: PPM: CXR: Chest CT Scan: Radiography Diagnostic Testing: Radiology Impression Gastric Emptying Nuclear Medicine 01/18/25 09:00 IMPRESSION: Normal semi solid phase gastric emptying. Reading Location: [place] [address] Physical Exam Narrative Comfortable. No apparent distress. Heart sounds 1 and 2 normal. Chest clear to auscultation bilaterally. No ankle edema. Assessment & Plan Assessment/Plan (1) Paroxysmal atrial fibrillation: PLAN: Presently normal sinus rhythm. Started on sotalol yesterday. QTc prolonged this morning. DC sotalol. Repeat ECG tomorrow morning. If QT has normalized, then will start on amiodarone. (2) Mitral regurgitation: PLAN: Continue diuretics. Start on ACEI for afterload reduction. Reevaluate asoutpatient and consider referral to CT surgery for valve repair. (3) Chronic heart failure with preserved ejection fraction (HFpEF): PLAN: Diuretics. Change furosemide to p.o. Start on SGLT2 inhibitor. 01/18/25 1240 Cosigner Signature (if applicable): CC: ~ Signed [facility]05-09-2025 Nuclear medicine Diagnostic study note [facility] Imaging Services [address] [place] [address] Gastric Emptying Study MR#: [id number] Acct: [id number] Name: SAHARA MELÉNDEZ Rep #: [id number] : 1945 F 79 From: Jamshid Pandey MD PCP: Dr. Rosendo Brown MD Status: ADM I N Study:Gastric Emptying Study Date of Exam: 01/18/25 Exam# [id number] Ordering Dr: Dolores Louise DO PROCEDURE: GASTRIC EMPTYING STUDY 01/18/2025 REASON FOR EXAM: NAUSEA COMPARISON: None. TECHNIQUE: The patient ingested a semi solid meal of oatmeal. There was no vomiting postprandially. Anterior and posterior planar images of the upper abdomen were obtained for a total of 60 minutes. Regions of interest were drawn, and a geometric mean was used to calculate a [id number]. Medications taken in the past 24 hours that may affect gastric emptying: None RADIOPHARMACEUTICAL: Oral administration, with oatmeal, 1.2 mCi technetium 99 M sulfur colloid. FINDINGS: During the time of imaging, gastroesophageal reflux was not visualized. Linear fit gastric emptying half-time of 27.2 minutes. Gastric emptying at 11.5 minutes of 28%, at 29.5 minutes of 70%, and at 59.5 minutes of 91%. NM/Gastric Emptying Study IMPRESSION: Normal semi solid phase gastric emptying. Reading Location: [place] [address] CC: Dr. Veronica Louise DO; Dr. Rosendo Brown MD ~ Grid Inspector: Signed [facility]05-09-2025 NoteHNO ID: [id number] Author: IVONNE SINGLETON RN Service: ? Author Type: Registered Nurse Type: Progress Notes Filed: 01/18/2025 11:01 Note Text: Previous entry done in error. Ivonne Singleton RN.[facility] 01-18-2025 History of Present illness Narrative* Ivonne Singleton RN - 01/18/2025 10:59 AM EDT Previous entry done in error. Ivonne Singleton RN. [facility] History and physical note Author Veronica Louise [facility] Note Date/Time January 17, 2025 7:28pm [facility] Medical Records Department [address] [place] [id number] H&P Exam - Hospitalist 01/17/25 0715 MR#: [id number] Acct: [id number] Name: SAHARA MELÉNDEZ Rep #:[id number] : 1945 79 From: Veronica Louise DO PCP: Dr. Rosendo Brown MD Status:ADM I N Location: [place] [address] HPI - General General Date of Admission: 01/17/25 Date of Service: 01/17/25 Chief Complaint: Shortness of breath HPI Narrative SAHARA MELÉNDEZ, is a 79 F who presented to the emergency department [facility] on 01/17/2025 with a chief complaint of shortness of breath. She reported been ongoing for about a week and she came in around 5:30 in the morning because it had clinically gotten worse. 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 She was noted to be in A-fib yesterday and it was thought that she had been in this for possibly a while with RVR and was distant from that so they plan to cardioversion 4 01/18/2025. Patient thinks she may have had some swelling in her legs but denies any fever or chills. She doesstate that she has nausea just about every morning now with no vomiting but it resolves after about 4 hours. She does follow with Dr. David for celiac's disease at baseline and her last visit with him was in October. She states shehas not notified him as of yet for this. She has appointment to see him on Tuesday. She does have a known history of mitral valve disease and the case was discussed with cardiology prior to admission and they thought maybe her mitral valve disease was getting worse causing worsening atrial fibrillation. They suggest sotalol rather than cardioversion. Her daughter also interjects that over the last few months her memory has been slowly getting worse. Vital signs emergency department show a temperature of 97.6, heart rate 89, respiratory rate was 18, blood pressure was 145/98 and pulse ox was 93% on room air. CBC showed a mild chronic stable anemia but was otherwise unremarkable. Chemistry panel was unremarkable other than hyperglycemia with a glucose level of 125. Troponin has been unremarkable. BNP was elevated at 2630. Her chest x-ray did appear to be wet with bilateral congestion related to volume overload and EKG showed A-fib with RVR. She was dosed with sotalol 80 mg x 1 dose in emergency department at the recommendation of cardiology and was given 1 dose of Lasix. [facility] Medical History Dyspnea on exertion Wears glasses High cholesterol TIA (transient ischemic attack) History of IBS History of diverticulitis History of Holter monitoring History of atrial fibrillation Cardiology follow-up encounter Wears partial dentures Arthritis Interstitial cystitis Bladder disease Easy bruising PONV (postoperative nausea and vomiting) Migraine headache Dietary restriction History of hiatal hernia Gastric reflux Non-smoker Shortness of breath on exertion History of edema History of stress test History of echocardiogram Femur fracture, left Esophagitis IBS (irritable bowel syndrome) Hepatic cyst Renal cyst Non-rheumatic mitral regurgitation Nonrheumatic mitral (valve) prolapse Ventricular ectopy Colitis Fibromyalgia Diverticulosis Anxiety and depression Diarrhea Mitral valve prolapse syndrome Home Medications ?Medication ?Instructions ?Recorded ?Last Taken ?Type multivitamin 1 tab PO DAILY [facility] [place] 01/20/23 01/20/23 History ascorbic acid (vitamin C) 500 mg 500 mg PO DAILY 03/18 Unknown History tablet (C-500) cranberry 500 mg capsule 500 mg PO TID 03/18/23 Unkno wn History atorvastatin 40 mg tablet 40 mg PO QHS 05/19/23 Unknow n History lactobacillus combination no.9 4 4,000 mmu cells PO DA PRATIK 05/19/23 Unknown History billion cell capsule (Adult 50 Plus Probiotic) acetaminophen 500 mg tablet 1,000 mg PO DAILY pain Unknown History simethicone 80 mg chewable tablet 80 mg PO BID 4 Unknown History (Gas Relief (simethicone)) ubrogepant 100 mg tablet (Ubrelvy) mg PO .0prn PRN hea dache 01/25/24 Unknown History escitalopram oxalate 5 mg tablet 5 mg PO DAILY 4 Unknown History (Lexapro) nitroglycerin 0.4 mg sublingual 0.4 mg sublingual Q5-1 5M PRN Chest 07/26/24 Unknown Rx tablet Pain #25 tabs apixaban 5 mg tablet (Eliquis) 5 mg PO BID #180 tabs 0 11/08/24 Unknown Rx metoprolol tartrate 50 mg tablet 100 mg (2 x 50 mg) PO BID #180 tabs 01/16/25 Unknown Rx Allergy/AdvReac Type Severity Reaction Status Date / Time ciprofloxacin (From Cipro) Allergy Hives Verified 01/17/25 05:21 ciprofloxacin HCl (From Allergy Hives Verified 01/17/25 05:21 Cipro) atropine (From Lomotil) AdvReac Nausea Verified 01/17/25 05:21 dicyclomine (From Bentyl) AdvReac Other Verified 01/17/25 05:21 diphenoxylate (From Lomotil) AdvReac Nausea Verified 01/17/25 05:21 erythromycin base AdvReac Vomiting Verified 01/17/25 05:21 (Erythromycin Base) hydromorphone HCl (From AdvReac anxiety Verified 01/17/25 05:21 Dilaudid) latex AdvReac Rash Verified 01/17/25 05:21 prochlorperazine edisylate AdvReac anxiety Verified 01/17/25 05:21 (From Compazine) prochlorperazine maleate AdvReac anxiety Verified 01/17/25 05:21 (From Compazine) Family History Father CAD (coronary artery disease) Mother CVA (cerebral vascular accident) Diabetes Sister Heart disease Valvular-mitral Grandmother CAD (coronary artery disease) Grandfather CAD (coronary artery disease) Surgical History History of dilation of urethra History of breast surgery History of esophagogastroduodenoscopy (EGD) History of colonoscopy History of surgery on lower extremity H/O hysterectomy with unilateral oophorectomy History of tonsillectomy History of right knee joint replacement History of left knee replacement History of colon surgery History of cholecystectomy History of appendectomy Social History Smoking Status: Never smoker alcohol intake: never substance use type: does not use caffeine: Yes Type: coffee and tea ROS Constitutional Constitutional: Reports fatigue; Denies anorexia, change in weight, chills, fever(s), malaise, night sweats, weakness or other Eyes Eyes: Denies blurry vision, change in eye color, change in vision, discharge from eye(s), double vision, erythema, eye pain, loss of vision or other ENT HEENT: Denies abnormal hearing, dysphagia, ear pain, epistaxis, headache(s), hearing loss, nasal congestion, nasal discharge, post nasal drip, sinus pressure, sore throat or other Cardiovascular Cardiovascular: Reports dyspnea on exertion, edema, palpitations and rapid heartrate; Denies chest pain, claudication, lightheadedness, orthopnea, paroxysmal nocturnal dyspnea, syncope or other Respiratory/Chest Respiratory/Chest: Reports shortness of breath with exertion; Denies cough, dyspnea, excessive phlegm production, hemoptysis, productive cough, shortness ofbreath at rest, wheezing or other Gastrointestinal Gastrointestinal: Reports diarrhea and nausea; Denies abdominal pain, coffee ground emesis, constipation, dyspepsia, hematemesis, hematochezia, loose stools,melena, vomiting or other Genitourinary Genitourinary: Denies burning urination, difficulty urinating, dysuria, hematuria, nocturia, urinary frequency, urinary hesitancy, urinary incontinence,urinary urgency or other Musculoskeletal Musculoskeletal: Denies arthralgias, back pain, joint pain, joint stiffness, joint swelling, myalgias, neck pain or other Neurologic Neurologic: Denies abnormal gait, abnormal speech, confusion, disequilibrium, dizziness, focal weakness, headache(s), numbness, paresthesias, seizure-like activity, seizures, syncope, tingling, tremor(s) or other Psychiatric Psychiatric: Denies anxiety, depression, homicidal ideation, suicidal ideation or other Endocrine Endocrinology: Denies change in body appearance, cold intolerance, excessive sweating, heat intolerance, polydipsia, polyuria or other Hematologic/Lymphatic Hematologic/Lymphatic: Denies anemia, easy bleeding, easy bruising, lymphadenopathy or other Allergic/Immunologic Allergic/Immunologic: Denies rhinitis, hives, eczemia, asthma or other Vital Signs Vital Signs Vital Signs: 01/17/25 05:15 01/17/25 05:48 01/17/25 05:48 Temperature 97.6 F L Temperature Source Oral Pulse Rate 73 Respiratory Rate 18 Respiratory Effort Normal Blood Pressure 142/76 H Blood Pressure Mean 98 Pulse Ox 93 Oxygen Delivery Method Room Air Room Air Weight Weight: 99.2 kg Body Mass Index (BMI) 38.7 Physical Exam Const alert, oriented x3, no apparent distress and well nourished; Negative for average body habitus Constitutional Narrative: Morbidly obese, older, white female, lying in bed, appears comfortable, nontoxic, family at bedside General Appearance: cooperative HEENT normocephalic, head/scalp atraumatic and moist oral mucous membranes HEENT Narrative: Mallampati 3-4, no thrush Eyes conjunctivae normal Eyes Narrative: No scleral icterus Neck supple Neck Narrative: Neck is short and thick, trachea midline Resp normal respiratory effort, no retractions, no use of accessory muscles and No clear to auscultation bilaterally Resp Narrative: Crackles noted at the bases bilaterally Auscultation: crackles; Negative for rhonchi or wheezes Cardio S1 normal heart sound, S2 normal heart sound, no rub, no gallops and no clicks; Negative for regular rate, regular rhythm or no murmurs Cardio Narrative: Mild tachycardia with irregularly irregular rhythm, 1 out of 6 to 2 out of 6 systolic murmur loudest at left lower sternal border GI normal to inspection, nondistended, normoactive bowel sounds, soft to palpation and non-tender GI Narrative: Protuberant abdomen Extremity Extremity Narrative: Trace bilateral lower extremity edema without cyanosis or clubbing Neuro oriented x3, moves all extremities and no focal motor deficits Neuro Narrative: Intermittently forgetful Speech: speech normal Psych affect normal Psych Narrative: Pleasant, interacts appropriately Results Lab / Micro Data 01/17/25 05:38 01/17/25 05:38 Labs: Laboratory Results - last 24 hr 01/17/25 05:38: WBC 8.7, RBC 3.90 L, Hgb 11.7 L, Hct 35.3 L, MCV 90.5, MCH 30.0,MCHC 33.1, RDW Std Deviation 47.9 H, RDW Coeff of Laina 14.8 H, Plt Count 233, MPV10.2, Immature Gran % (Auto) 0.300, Neut % (Auto) 71.3 H, Lymph % (Auto) 16.5 L,Dewitt % (Auto) 8.2, Eos % (Auto) 3.0, Baso % (Auto) 0.7, Absolute Neuts (auto) 6.2, Absolute Lymphs (auto) 1.44, Nucleated RBC % 0, Sodium 141, Potassium 3.7, Chloride 107, Carbon Dioxide 23.4, Anion Gap 10, BUN 19, Creatinine 0.63 L, Estim Creat Clear Calc 65.07, Est GFR (MDRD) Non-Af 91, BUN/Creatinine Ratio 29.8 H, Glucose 125 H, Calcium 9.1, Troponin T High Sens 10, NT pro BNP II 2630 H Rhythm Strip Rhythm Strip: A-fib Rate: 85 Ectopy: PVC(s) Imaging Radiology Impression Chest X-Ray 01/17/25 06:00 IMPRESSION: Worsening pulmonary vascular congestion. Follow-up until clearing is recommended. Reading Location: [id number] Assessment & Plan Assessment/Plan (1) Pulmonary edema: (2) Dyspnea on exertion: (3) Paroxysmal atrial fibrillation: (4) Nausea: (5) Memory loss: PLAN: Plan Paroxysmal atrial fibrillation - Patient in atrial fibrillation on presentation - Had increase in metoprolol dose but became progressively worse with shortness of breath and still in atrial fibrillation with acute heart failure related to RVR -Has not had any Eliquis doses missed -Has history of MVP--> check echocardiogram to ensure that she does not have worsening mitral valve regurgitation as etiology for her atrial fibrillation - Last echocardiogram in 2022 showed normal LV function at 60% with moderate MR -Start sotalol 80 mg p.o. twice daily - Repeat EKG in a.m. - Hold metoprolol - Cardiology consult Shortness of breath with exertion secondary to acute HFpEF - Last echo with normal EF however suspect her RVR has kicked her into some heart failure - proBNP is elevated for her age - Lasix 40 mg IV twice daily - Will monitor renal function electrolytes - Will give 1 dose of potassium now as she is going to be on diuretics and utilization of sotalol with hypokalemia can precipitate lethal arrhythmias Nausea - Patient with morning nausea has been quite debilitating - Check TSH - Check gastric emptying study - Patient does follow with Dr. David - If recurs tomorrow will start antiemetic - Patient has not been taking anything prescribed at home and Dr. David is not aware of her a.m. nausea Memory loss - Daughter is concerned because her memory has been extremely poor in the last several months - Check TSH - Check B12 level - Check folic acid - If persistent will refer to neurology as an outpatient for further workup Celiac's disease - Continue follow-up with Dr. David after discharge - Patient with chronic diarrhea and related to this History of interstitial cystitis - No current complaints Hyperlipidemia - Continue atorvastatin Anxiety/depression - Continue home escitalopram Obesity - BMI 36.7 -Recommend weight loss - Patient should likely have outpatient polysomnography especially with atrial fibrillation diagnosis - Will recommend a discharge DVT prophylaxis - Continue home Eliquis CODE STATUS - Full code as discussed on admission Charges/Coding Visit Charges Inpatient E&M: 60108 Init Hosp L2 01/17/251927 <Electronically signed by Veronica Louise DO> Cosigner Signature (if applicable): CC: Dr. Veronica Louise DO; Dr. Rosendo Brown MD~ Signed [facility] Work Phone: [phone] 454-975805-08-2025 History and physical note [facility] Medical Records Department [address] [place] [address] H&P Exam - Hospitalist 01/17/25 0715 MR#: [id number] Acct: [id number] Name: SAHARA MELÉNDEZ Rep #:[id number] : 1945 79 From: Veronica Louise DO PCP: Dr. Rosendo Brown MD Status:ADM I N Location: [place] [address] HPI - General General Date of Admission: 01/17/25 Date of Service: 01/17/25 Chief Complaint: Shortness of breath HPI Narrative SAHARA MELÉNDEZ, is a 79 F who presented to the emergency department [facility] on 01/17/2025 with a chief complaint of shortness of breath. She reported been ongoing for about a week and she came in around 5:30 in the morning because it had clinically gotten worse. 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 She was noted to be in A-fib yesterday and it was thought that she had been in thisfor possibly a while with RVR and was distant from that so they plan to cardioversion 4 01/18/2025. Patient thinks she may have had some swelling in her legs but denies any fever or chills. She doesstate that she has nausea just about every morning now with no vomiting but it resolves after about 4 hours. She does follow with Dr. David for celiac's disease at baseline and her last visit with him was in October. She states shehas not notified him as of yet for this. She has appointment to see him on Tuesday. She does have a known history of mitral valve disease and the case was discussed with cardiology prior to admission and they thought maybe her mitral valve disease was getting worse causing worsening atrial fibrillation. They suggest sotalol rather than cardioversion. Her daughter also interjects that over the last few months her memory has been slowly getting worse. Vital signs emergency department show a temperature of 97.6, heart rate 89, respiratory rate was 18, blood pressure was 145/98 and pulse ox was 93% on room air. CBC showed a mild chronic stable anemia but was otherwise unremarkable. Chemistry panel was unremarkable other than hyperglycemia with a glucose level of 125. Troponin has been unremarkable. BNP was elevated at 2630. Her chest x- ray did appear to be wet with bilateral congestion related to volume overload and EKG showed A-fib with RVR. She was dosed with sotalol 80 mg x 1 dose in emergency department at the recommendation of cardiology and was given 1 dose of Lasix. [facility] Medical History Dyspnea on exertion Wears glasses High cholesterol TIA (transient ischemic attack) History of IBS History of diverticulitis History of Holter monitoring History of atrial fibrillation Cardiology follow-up encounter Wears partial dentures Arthritis Interstitial cystitis Bladder disease Easy bruising PONV (postoperative nausea and vomiting) Migraine headache Dietary restriction History of hiatal hernia Gastric reflux Non-smoker Shortness of breath on exertion History of edema History of stress test History of echocardiogram Femur fracture, left Esophagitis IBS (irritable bowel syndrome) Hepatic cyst Renal cyst Non-rheumatic mitral regurgitation Nonrheumatic mitral (valve) prolapse Ventricular ectopy Colitis Fibromyalgia Diverticulosis Anxiety and depression Diarrhea Mitral valve prolapse syndrome Home Medications ?Medication ?Instructions ?Recorded ?Last Taken ?Type multivitamin 1 tab PO DAILY [facility] [place] 01/20/23 01/20/23 History ascorbic acid (vitamin C) 500 mg 500 mg PO DAILY 03/18 Unknown History tablet (C-500) cranberry 500 mg capsule 500 mg PO TID 03/18/23 Unkno wn History atorvastatin 40 mg tablet 40 mg PO QHS 05/19/23 Unknow n History lactobacillus combination no.9 4 4,000 mmu cells PO DA PRATIK 05/19/23 Unknown History billion cell capsule (Adult 50 Plus Probiotic) acetaminophen 500 mg tablet 1,000 mg PO DAILY pain Unknown History simethicone 80 mg chewable tablet 80 mg PO BID 4 Unknown History (Gas Relief (simethicone)) ubrogepant 100 mg tablet (Ubrelvy) mg PO .0prn PRN hea dache 01/25/24 Unknown History escitalopram oxalate 5 mg tablet 5 mg PO DAILY 4 Unknown History (Lexapro) nitroglycerin 0.4 mg sublingual 0.4 mg sublingual Q5-1 5M PRN Chest 07/26/24 Unknown Rx tablet Pain #25 tabs apixaban 5 mg tablet (Eliquis) 5 mg PO BID #180 tabs 0 11/08/24 Unknown Rx metoprolol tartrate 50 mg tablet 100 mg (2 x 50 mg) PO BID #180 tabs 01/16/25 Unknown Rx Allergy/AdvReac Type Severity Reaction Status Date / Time ciprofloxacin (From Cipro) Allergy Hives Verified 01/17/25 05:21 ciprofloxacin HCl (From Allergy Hives Verified 01/17/25 05:21 Cipro) atropine (From Lomotil) AdvReac Nausea Verified 01/17/25 05:21 dicyclomine (From Bentyl) AdvReac Other Verified 01/17/25 05:21 diphenoxylate (From Lomotil) AdvReac Nausea Verified 01/17/25 05:21 erythromycin base AdvReac Vomiting Verified 01/17/25 05:21 (Erythromycin Base) hydromorphone HCl (From AdvReac anxiety Verified 01/17/25 05:21 Dilaudid) latex AdvReac Rash Verified 01/17/25 05:21 prochlorperazine edisylate AdvReac anxiety Verified 01/17/25 05:21 (From Compazine) prochlorperazine maleate AdvReac anxiety Verified 01/17/25 05:21 (From Compazine) Family History Father CAD (coronary artery disease) Mother CVA (cerebral vascular accident) Diabetes Sister Heart disease Valvular-mitral Grandmother CAD (coronary artery disease) Grandfather CAD (coronary artery disease) Surgical History History of dilation of urethra History of breast surgery History of esophagogastroduodenoscopy (EGD) History of colonoscopy History of surgery on lower extremity H/O hysterectomy with unilateral oophorectomy History of tonsillectomy History of right knee joint replacement History of left knee replacement History of colon surgery History of cholecystectomy History of appendectomy Social History Smoking Status: Never smoker alcohol intake: never substance use type: does not use caffeine: Yes Type: coffee and tea ROS Constitutional Constitutional: Reports fatigue; Denies anorexia, change in weight, chills, fever(s), malaise, night sweats, weakness or other Eyes Eyes: Denies blurry vision, change in eye color, change in vision, discharge from eye(s), double vision, erythema, eye pain, loss of vision or other ENT HEENT: Denies abnormal hearing, dysphagia, ear pain, epistaxis, headache(s), hearing loss, nasal congestion, nasal discharge, post nasal drip, sinus pressure, sore throat or other Cardiovascular Cardiovascular: Reports dyspnea on exertion, edema, palpitations and rapid heartrate; Denies chest pain, claudication, lightheadedness, orthopnea, paroxysmal nocturnal dyspnea, syncope or other Respiratory/Chest Respiratory/Chest: Reports shortness of breath with exertion; Denies cough, dyspnea, excessive phlegm production, hemoptysis, productive cough, shortness ofbreath at rest, wheezing or other Gastrointestinal Gastrointestinal: Reports diarrhea and nausea; Denies abdominal pain, coffee ground emesis, constipation, dyspepsia, hematemesis, hematochezia, loose stools,melena, vomiting or other Genitourinary Genitourinary: Denies burning urination, difficulty urinating, dysuria, hematuria, nocturia, urinary frequency, urinary hesitancy, urinary incontinence,urinary urgency or other Musculoskeletal Musculoskeletal: Denies arthralgias, back pain, joint pain, joint stiffness, joint swelling, myalgias, neck pain or other Neurologic Neurologic: Denies abnormal gait, abnormal speech, confusion, disequilibrium, dizziness, focal weakness, headache(s), numbness, paresthesias, seizure-like activity, seizures, syncope, tingling, tremor(s) or other Psychiatric Psychiatric: Denies anxiety, depression, homicidal ideation, suicidal ideation or other Endocrine Endocrinology: Denies change in body appearance, cold intolerance, excessive sweating, heat intolerance, polydipsia, polyuria or other Hematologic/Lymphatic Hematologic/Lymphatic: Denies anemia, easy bleeding, easy bruising, lymphadenopathy or other Allergic/Immunologic Allergic/Immunologic: Denies rhinitis, hives, eczemia, asthma or other Vital Signs Vital Signs Vital Signs: 01/17/25 05:15 01/17/25 05:48 01/17/25 05:48 Temperature 97.6 F L Temperature Source Oral Pulse Rate 73 Respiratory Rate 18 Respiratory Effort Normal Blood Pressure 142/76 H Blood Pressure Mean 98 Pulse Ox 93 Oxygen Delivery Method Room Air Room Air Weight Weight: 99.2 kg Body Mass Index (BMI) 38.7 Physical Exam Const alert, oriented x3, no apparent distress and well nourished; Negative for average body habitus Constitutional Narrative: Morbidly obese, older, white female, lying in bed, appears comfortable, nontoxic, family at bedside General Appearance: cooperative HEENT normocephalic, head/scalp atraumatic and moist oral mucous membranes HEENT Narrative: Mallampati 3-4, no thrush Eyes conjunctivae normal Eyes Narrative: No scleral icterus Neck supple Neck Narrative: Neck is short and thick, trachea midline Resp normal respiratory effort, no retractions, no use of accessory muscles and No clear to auscultationbilaterally Resp Narrative: Crackles noted at the bases bilaterally Auscultation: crackles; Negative for rhonchi or wheezes Cardio S1 normal heart sound, S2 normal heart sound, no rub, no gallops and no clicks; Negative for regular rate, regular rhythm or no murmurs Cardio Narrative: Mild tachycardia with irregularly irregular rhythm, 1 out of 6 to 2 out of 6 systolic murmur loudest at left lower sternal border GI normal to inspection, nondistended, normoactive bowel sounds, soft to palpation and non-tender GI Narrative: Protuberant abdomen Extremity Extremity Narrative: Trace bilateral lower extremity edema without cyanosis or clubbing Neuro oriented x3, moves all extremities and no focal motor deficits Neuro Narrative: Intermittently forgetful Speech: speech normal Psych affect normal Psych Narrative: Pleasant, interacts appropriately Results Lab / Micro Data 01/17/25 05:38 01/17/25 05:38 Labs: Laboratory Results - last 24 hr 01/17/25 05:38: WBC 8.7, RBC 3.90 L, Hgb 11.7 L, Hct 35.3 L, MCV 90.5, MCH 30.0,MCHC 33.1, RDW Std Deviation 47.9 H, RDW Coeff of Laina 14.8 H, Plt Count 233, MPV10.2, Immature Gran % (Auto) 0.300, Neut % (Auto) 71.3 H, Lymph % (Auto) 16.5 L,Dewitt % (Auto) 8.2, Eos % (Auto) 3.0, Baso % (Auto) 0.7, Absolute Neuts (auto) 6.2, Absolute Lymphs (auto) 1.44, Nucleated RBC % 0, Sodium 141, Potassium 3.7, Chloride 107, Carbon Dioxide 23.4, Anion Gap 10, BUN 19, Creatinine 0.63 L, Estim Creat Clear Calc 65.07, Est GFR (MDRD) Non-Af 91, BUN/Creatinine Ratio 29.8 H, Glucose 125 H, Calcium 9.1, Troponin T High Sens 10, NT pro BNP II 2630 H Rhythm Strip Rhythm Strip: A-fib Rate: 85 Ectopy: PVC(s) Imaging Radiology Impression Chest X-Ray 01/17/25 06:00 IMPRESSION: Worsening pulmonary vascular congestion. Follow-up until clearing is recommended. Reading Location: [id number] Assessment & Plan Assessment/Plan (1) Pulmonary edema: (2) Dyspnea on exertion: (3) Paroxysmal atrial fibrillation: (4) Nausea: (5) Memory loss: PLAN: Plan Paroxysmal atrial fibrillation - Patient in atrial fibrillation on presentation - Had increase in metoprolol dose but became progressively worse with shortness of breath and stillin atrial fibrillation with acute heart failure related to RVR -Has not had any Eliquis doses missed -Has history of MVP--> check echocardiogram to ensure that she does not have worsening mitral valve regurgitation as etiology for her atrial fibrillation - Last echocardiogram in 2022 showed normal LV function at 60% with moderate MR -Start sotalol 80 mg p.o. twice daily - Repeat EKG in a.m. - Hold metoprolol - Cardiology consult Shortness of breath with exertion secondary to acute HFpEF - Last echo with normal EF however suspect her RVR has kicked her into some heart failure - proBNP is elevated for her age - Lasix 40 mg IV twice daily - Will monitor renal function electrolytes - Will give 1 dose of potassium now as she is going to be on diuretics and utilization of sotalol with hypokalemia can precipitate lethal arrhythmias Nausea - Patient with morning nausea has been quite debilitating - Check TSH - Check gastric emptying study - Patient does follow with Dr. David - If recurs tomorrow will start antiemetic - Patient has not been taking anything prescribed at home and Dr. David is not aware of her a.m. nausea Memory loss - Daughter is concerned because her memory has been extremely poor in the last several months - Check TSH - Check B12 level - Check folic acid - If persistent will refer to neurology as an outpatient for further workup Celiac's disease - Continue follow-up with Dr. David after discharge - Patient with chronic diarrhea and related to this History of interstitial cystitis - No current complaints Hyperlipidemia - Continue atorvastatin Anxiety/depression - Continue home escitalopram Obesity - BMI 36.7 -Recommend weight loss - Patient should likely have outpatient polysomnography especially with atrial fibrillation diagnosis - Will recommend a discharge DVT prophylaxis - Continue home Eliquis CODE STATUS - Full code as discussed on admission Charges/Coding Visit Charges Inpatient E&M: 61749 Init Hosp L2 01/17/251927 Cosigner Signature (if applicable): CC: Dr. Veronica Louise DO; Dr. Rosendo Brown MD~ Signed [facility]05-08-2025 Consult note Author Pato Simmons [facility] Note Date/Time January 17, 2025 7:58am [facility] Medical Records Department [address] [place] [address] Consultation - Cardiology 01/17/25 0743 MR#: [id number] Acct: [id number] Name: SAHARA MELÉNDEZ Rep #:[id number] : 1945 79 From: Pato Simmons MD PCP: Dr. Rosendo Brown MD Status:REG E R Location: ED Assessment & Plan Assessment/Plan (1) Paroxysmal atrial fibrillation: PLAN: Patient was documented to be in atrial fibrillation on 01/16/2025 in the [facility] office at a heart rate of 145 bpm. Metoprolol was increasedto 100 mg twice daily but the patient became progressively more short of breath and presented to the emergency department early on the morning of 01/17/2025. The patient's chest x-ray in the emergency department compared to the chest x- ray yesterday shows increasing pulmonary congestion. The patient spontaneously reverted into sinus rhythm and then flipped in and out of atrial fibrillation while being monitored in the emergency department. Sinus rate was controlled inthe 70 bpm there were PVCs noted the patient has a history of recurrent PVCs andnonsustained VT remotely. The patient also complains of chronic diarrhea and nausea for the last several weeks. She does have a history of celiac disease and is followed by Dr. David. Patient also has a history of mitral valve prolapse with moderate mitral regurgitation. She is obese and difficult to auscultate her cardiovascular exambut it does appear she has a faint 1/6 systolic murmur and a audible click. Last echocardiogram was in 2022 which showed normal LV function EF of 60% and moderate mitral regurgitation with bileaflet prolapse. Given the patient's paroxysms of atrial fibrillation, her progressive dyspnea onexertion, her pulmonary congestion, and signs and symptoms of decreased cardiac output syndrome, I would recommend that we place her on sotalol 80 mg twice daily, replace any potassium as her potassium is 3.7 and she is receiving diuretics, check an ECG for QT interval 2 to 3 hours after the first sotalol dose and then every morning. Will hold the metoprolol for the time being. Will repeat an echo to reevaluate the LV function and valvular heart disease. (2) Dyspnea on exertion: PLAN: This is probably multifactorial related to her potential for worsening mitral regurgitation and/or LV dysfunction, her paroxysms of atrial fibrillation, and her body habitus. Will continue with gentle diuresis her renal function is normal monitor her potassium and I's and O's. (3) Nonrheumatic mitral (valve) prolapse: PLAN: An echocardiogram be done to reevaluate the patient's known moderate mitral valve regurgitation related to her bileaflet prolapse. PLAN: Plan 1. Will add sotalol 80 mg twice daily. 2. Check QT interval with ECG in 2-3 hours. 3. ECG every morning while on sotalol in the hospital. 4. 2D echocardiogram to evaluate structural heart disease and LV function. 5. Continue with diuresis monitoring electrolytes and renal function. 6. Defers further evaluation of the nausea and GI issues to the primary service. HPI Consult Data Date of Consult: 01/17/25 HPI Narrative Reason for Consultation: Paroxysmal atrial fibrillation with rapid ventricular response HPI Narrative: SAHARA MELÉNDEZ, is a 79 F who presents with a 2-week history of progressive shortness of breath and dyspnea on exertion. This has been worsening over the last several days. She was evaluated in the [facility] office yesterday and was found to be in atrial fibrillation with a rapid ventricular spots of 145 bpm. The patient's metoprolol was increased to 100 mg twice daily and she was set up for elective direct-current cardioversion on January 18, 2025, tomorrow. The patient presented to the emergency room early this morning complaining of increasing shortness of breath chest x-ray was consistent with pulmonary congestion heart rate was in the 120 bpm range in atrial fibrillation. The patient is been on long-term oral oral anticoagulation and she has not missed any dosing. The plan was to cardiovert in the emergency department but she spontaneously reverted into sinus rhythm. Heart rate was in the 70 bpm in sinus rhythm but then she had a recurrence of her atrial fibrillation and has been flipping in and out of atrial fib. The patient also has multiple somatic complaints she has a history of chronic diarrhea she apparently was told that she had white blood cells in her stool andwas rereferred to Dr. David due to her nausea and diarrhea. Patient denies any chest pain she does have a history of mitral valve prolapse with moderate mitral regurgitation and normal LV function on an echocardiogram done February 2023. Patient also had a negative stress test February 2023 which showed sinus rhythm at 66 bpm and was negative for any ischemia. The patient denies any syncope or near syncope. She does have continued fatigue and weakness. The patient is being admitted for diuresis, sotalol loading, and further evaluation of her valvular heart disease. ECG in the emergency department showed normal sinus rhythm with frequent PVCs nosignificant ischemic changes documented. [facility] Medical History Dyspnea on exertion Wears glasses High cholesterol TIA (transient ischemic attack) History of IBS History of diverticulitis History of Holter monitoring History of atrial fibrillation Cardiology follow-up encounter Wears partial dentures Arthritis Interstitial cystitis Bladder disease Easy bruising PONV (postoperative nausea and vomiting) Migraine headache Dietary restriction History of hiatal hernia Gastric reflux Non-smoker Shortness of breath on exertion History of edema History of stress test History of echocardiogram Femur fracture, left Esophagitis IBS (irritable bowel syndrome) Hepatic cyst Renal cyst Non-rheumatic mitral regurgitation Nonrheumatic mitral (valve) prolapse Ventricular ectopy Colitis Fibromyalgia Diverticulosis Anxiety and depression Diarrhea Mitral valve prolapse syndrome Home Medications ?Medication ?Instructions ?Recorded ?Last Taken ?Type multivitamin 1 tab PO DAILY [facility] 01/20/23 01/20/23 History ascorbic acid (vitamin C) 500 mg 500 mg PO DAILY 03/18 Unknown History tablet (C-500) cranberry 500 mg capsule 500 mg PO TID 03/18/23 Unkno wn History atorvastatin 40 mg tablet 40 mg PO QHS 05/19/23 Unknow n History lactobacillus combination no.9 4 4,000 mmu cells PO DA PRATIK 05/19/23 Unknown History billion cell capsule (Adult 50 Plus Probiotic) acetaminophen 500 mg tablet 1,000 mg PO DAILY pain Unknown History simethicone 80 mg chewable tablet 80 mg PO BID 4 Unknown History (Gas Relief (simethicone)) ubrogepant 100 mg tablet (Ubrelvy) mg PO .0prn PRN hea dache 01/25/24 Unknown History escitalopram oxalate 5 mg tablet 5 mg PO DAILY 4 Unknown History (Lexapro) nitroglycerin 0.4 mg sublingual 0.4 mg sublingual Q5-1 5M PRN Chest 07/26/24 Unknown Rx tablet Pain #25 tabs apixaban 5 mg tablet (Eliquis) 5 mg PO BID #180 tabs 0 11/08/24 Unknown Rx metoprolol tartrate 50 mg tablet 100 mg (2 x 50 mg) PO BID #180 tabs 01/16/25 Unknown Rx Allergy/AdvReac Type Severity Reaction Status Date / Time ciprofloxacin (From Cipro) Allergy Hives Verified 01/17/25 05:21 ciprofloxacin HCl (From Allergy Hives Verified 01/17/25 05:21 Cipro) atropine (From Lomotil) AdvReac Nausea Verified 01/17/25 05:21 dicyclomine (From Bentyl) AdvReac Other Verified 01/17/25 05:21 diphenoxylate (From Lomotil) AdvReac Nausea Verified 01/17/25 05:21 erythromycin base AdvReac Vomiting Verified 01/17/25 05:21 (Erythromycin Base) hydromorphone HCl (From AdvReac anxiety Verified 01/17/25 05:21 Dilaudid) latex AdvReac Rash Verified 01/17/25 05:21 prochlorperazine edisylate AdvReac anxiety Verified 01/17/25 05:21 (From Compazine) prochlorperazine maleate AdvReac anxiety Verified 01/17/25 05:21 (From Compazine) Family History Father CAD (coronary artery disease) Mother CVA (cerebral vascular accident) Diabetes Sister Heart disease Valvular-mitral Grandmother CAD (coronary artery disease) Grandfather CAD (coronary artery disease) Surgical History History of dilation of urethra History of breast surgery History of esophagogastroduodenoscopy (EGD) History of colonoscopy History of surgery on lower extremity H/O hysterectomy with unilateral oophorectomy History of tonsillectomy History of right knee joint replacement History of left knee replacement History of colon surgery History of cholecystectomy History of appendectomy Social History Smoking Status: Never smoker alcohol intake: never substance use type: does not use caffeine: Yes Type: coffee and tea ROS ROS Narrative Patient resting on her side flat on the gurney in the emergency department. Sheappears in moderate distress due to nausea. Constitutional Constitutional: Reports as per HPI Eyes Eyes: Reports systems reviewed and no addt'l complaints, except as documented ENT HEENT: Reports systems reviewed and no addt'l complaints, except as documented Cardiovascular Cardiovascular: Reports as per HPI Respiratory/Chest Respiratory/Chest: Reports as per HPI Gastrointestinal Gastrointestinal: Reports as per HPI Genitourinary Genitourinary: Reports systems reviewed and no addt'l complaints, except as documented Musculoskeletal Musculoskeletal: Reports systems reviewed and no addt'l complaints, except as documented Integumentary Integumentary: Reports systems reviewed and no addt'l complaints, except as documented Neurologic Neurologic: Reports systems reviewed and no addt'l complaints, except as documented Psychiatric Psychiatric: Reports systems reviewed and no addt'l complaints, except as documented Endocrine Endocrinology: Reports systems reviewed and no addt'l complaints, except as documented Hematologic/Lymphatic Hematologic/Lymphatic: Reports systems reviewed and no addt'l complaints, exceptas documented Allergic/Immunologic Allergic/Immunologic: Reports systems reviewed and no addt'l complaints, except as documented Physical Exam Narrative Sickly appearing obese white female resting on her right side and flat on the gurney. O2 saturation 95% on nasal cannula. Const alert and oriented x3 HEENT normocephalic Eyes EOMs intact bilaterally Neck Neck Narrative: Thick neck unable to assess JVD. Chest inspection of chest normal Resp clear to auscultation bilaterally Resp Narrative: Mildly tachypneic but no definitive crackles or rales auscultated. Auscultation: Negative for rales Cardio Rate: regular rate Rhythm: regular rhythm Heart Sounds: S1 normal, S2 normal, click and murmur systolic I/ soft mid leftsternal border; Negative for gallop GI GI Narrative: Obese with positive bowel sounds complains of mild tenderness. Extremity no pedal edema Extremity Narrative: Enlarged lower extremities without any definitive significant edema. Neuro Neuro Narrative: Lethargic but easily arousable and oriented x 3 Psych mental status grossly normal Risk Stratification Risk Stratification Applicable: No Charges/Coding Visit Charges Inpatient E&M: 18492 Init Hosp L3 Objective Data Vital Signs: Vital Signs Temp Pulse Resp BP Pulse Ox O2 Del Method 97.6 F L 89 18 145/98 H 93 Room Air 01/17/25 05:15 01/17/25 07:15 01/17/25 07:15 01/17/25 07:15 01/17/25 07:15 01/17/25 05:48 Oxygen Delivery Method Room Air Weight: 218 lb 11.177 oz Body Mass Index (BMI) 38.7 Lab / Micro Data Attestation: I reviewed the patient's lab results. 01/17/25 05:38 01/17/25 05:38 Labs: Laboratory Results - last 24 hr 01/17/25 05:38: WBC 8.7, RBC 3.90 L, Hgb 11.7 L, Hct 35.3 L, MCV 90.5, MCH 30.0,MCHC 33.1, RDW Std Deviation 47.9 H, RDW Coeff of Laina 14.8 H, Plt Count 233, MPV10.2, Immature Gran % (Auto) 0.300, Neut % (Auto) 71.3 H, Lymph % (Auto) 16.5 L,Dewitt % (Auto) 8.2, Eos % (Auto) 3.0, Baso % (Auto) 0.7, Absolute Neuts (auto) 6.2, Absolute Lymphs (auto) 1.44, Nucleated RBC % 0, Sodium 141, Potassium 3.7, Chloride 107, Carbon Dioxide 23.4, Anion Gap 10, BUN 19, Creatinine 0.63 L, Estim Creat Clear Calc 65.07, Est GFR (MDRD) Non-Af 91, BUN/Creatinine Ratio 29.8 H, Glucose 125 H, Calcium 9.1, Troponin T High Sens 10, NT pro BNP II 2630 H Rhythm Strip Rhythm Strip: Sinus Rhythm Rate: 70 Ectopy: PVC(s) Cardiology Labs/Tests 01/17/25 05:38: WBC 8.7, RBC 3.90 L, Hgb 11.7 L, Hct 35.3 L, MCV 90.5, MCH 30.0,MCHC 33.1, Plt Count 233, MPV 10.2, Immature Gran % (Auto) 0.300, Neut % (Auto) 71.3 H, Lymph % (Auto) 16.5 L, Dewitt % (Auto) 8.2, Eos % (Auto) 3.0, Baso % (Auto) 0.7, Absolute Neuts (auto) 6.2, Nucleated RBC % 0, Sodium 141, Potassium 3.7, Chloride 107, Carbon Dioxide 23.4, Anion Gap 10, BUN 19, Creatinine 0.63 L,Est GFR (MDRD) Non-Af 91, BUN/Creatinine Ratio 29.8 H, Glucose 125 H, Calcium 9.1 Rhythm: EKG: ECHO: Stress Test: Cardiac Cath: PCI: CT Surgery: Holter monitor: EPS: PPM: CXR: Chest CT Scan: Radiography Diagnostic Testing: Radiology Impression Chest X-Ray 01/17/25 06:00 IMPRESSION: Worsening pulmonary vascular congestion. Follow-up until clearing is recommended. Reading Location: [id number] 01/17/25 075 <Electronically signed by Pato Simmons MD> Cosigner Signature (if applicable): CC: Dr. Rosendo Brown MD~ Signed [facility] Work Phone: [phone] 146-481205-08-2025 Consult note Author Pato Simmons [facility] Note Date/Time January 17, 2025 7:58am [facility] Medical Records Department [address] [place] [address] [place] [address] Consultation - Cardiology 01/17/25 0743 MR#: [id number] Acct: [id number] Name: SAHARA MELÉNDEZ Rep #:[id number] : 1945 79 From: Pato Simmons MD PCP: Dr. Rosendo Brown MD Status:REG E R Location: ED Assessment & Plan Assessment/Plan (1) Paroxysmal atrial fibrillation: PLAN: Patient was documented to be in atrial fibrillation on 01/16/2025 in the [facility] office at a heart rate of 145 bpm. Metoprolol was increasedto 100 mg twice daily but the patient became progressively more short of breath and presented to the emergency department early on the morning of 01/17/2025. The patient's chest x-ray in the emergency department compared to the chest x- ray yesterday shows increasing pulmonary congestion. The patient spontaneously reverted into sinus rhythm and then flipped in and out of atrial fibrillation while being monitored in the emergency department. Sinus rate was controlled inthe 70 bpm there were PVCs noted the patient has a history of recurrent PVCs andnonsustained VT remotely. The patient also complains of chronic diarrhea and nausea for the last several weeks. She does have a history of celiac disease and is followed by Dr. David. Patient also has a history of mitral valve prolapse with moderate mitral regurgitation. She is obese and difficult to auscultate her cardiovascular exambut it does appear she has a faint 1/6 systolic murmur and a audible click. Last echocardiogram was in 2022 which showed normal LV function EF of 60% and moderate mitral regurgitation with bileaflet prolapse. Given the patient's paroxysms of atrial fibrillation, her progressive dyspnea onexertion, her pulmonary congestion, and signs and symptoms of decreased cardiac output syndrome, I would recommend that we place her on sotalol 80 mg twice daily, replace any potassium as her potassium is 3.7 and she is receiving diuretics, check an ECG for QT interval 2 to 3 hours after the first sotalol dose and then every morning. Will hold the metoprolol for the time being. Will repeat an echo to reevaluate the LV function and valvular heart disease. (2) Dyspnea on exertion: PLAN: This is probably multifactorial related to her potential for worsening mitral regurgitation and/or LV dysfunction, her paroxysms of atrial fibrillation, and her body habitus. Will continue with gentle diuresis her renal function is normal monitor her potassium and I's and O's. (3) Nonrheumatic mitral (valve) prolapse: PLAN: An echocardiogram be done to reevaluate the patient's known moderate mitral valve regurgitation related to her bileaflet prolapse. PLAN: Plan 1. Will add sotalol 80 mg twice daily. 2. Check QT interval with ECG in 2-3 hours. 3. ECG every morning while on sotalol in the hospital. 4. 2D echocardiogram to evaluate structural heart disease and LV function. 5. Continue with diuresis monitoring electrolytes and renal function. 6. Defers further evaluation of the nausea and GI issues to the primary service. HPI Consult Data Date of Consult: 01/17/25 HPI Narrative Reason for Consultation: Paroxysmal atrial fibrillation with rapid ventricular response HPI Narrative: SAHARA MELÉNDEZ, is a 79 F who presents with a 2-week history of progressive shortness of breath and dyspnea on exertion. This has been worsening over the last several days. She was evaluated in the [facility] office yesterday and was found to be in atrial fibrillation with a rapid ventricular spots of 145 bpm. The patient's metoprolol was increased to 100 mg twice daily and she was set up for elective direct-current cardioversion on January 18, 2025, tomorrow. The patient presented to the emergency room early this morning complaining of increasing shortness of breath chest x-ray was consistent with pulmonary congestion heart rate was in the 120 bpm range in atrial fibrillation. The patient is been on long-term oral oral anticoagulation and she has not missed any dosing. The plan was to cardiovert in the emergency department but she spontaneously reverted into sinus rhythm. Heart rate was in the 70 bpm in sinus rhythm but then she had a recurrence of her atrial fibrillation and has been flipping in and out of atrial fib. The patient also has multiple somatic complaints she has a history of chronic diarrhea she apparently was told that she had white blood cells in her stool andwas rereferred to Dr. David due to her nausea and diarrhea. Patient denies any chest pain she does have a history of mitral valve prolapse with moderate mitral regurgitation and normal LV function on an echocardiogram done February 2023. Patient also had a negative stress test February 2023 which showed sinus rhythm at 66 bpm and was negative for any ischemia. The patient denies any syncope or near syncope. She does have continued fatigue and weakness. The patient is being admitted for diuresis, sotalol loading, and further evaluation of her valvular heart disease. ECG in the emergency department showed normal sinus rhythm with frequent PVCs nosignificant ischemic changes documented. [facility] Medical History Dyspnea on exertion Wears glasses High cholesterol TIA (transient ischemic attack) History of IBS History of diverticulitis History of Holter monitoring History of atrial fibrillation Cardiology follow-up encounter Wears partial dentures Arthritis Interstitial cystitis Bladder disease Easy bruising PONV (postoperative nausea and vomiting) Migraine headache Dietary restriction History of hiatal hernia Gastric reflux Non-smoker Shortness of breath on exertion History of edema History of stress test History of echocardiogram Femur fracture, left Esophagitis IBS (irritable bowel syndrome) Hepatic cyst Renal cyst Non-rheumatic mitral regurgitation Nonrheumatic mitral (valve) prolapse Ventricular ectopy Colitis Fibromyalgia Diverticulosis Anxiety and depression Diarrhea Mitral valve prolapse syndrome Home Medications ?Medication ?Instructions ?Recorded ?Last Taken ?Type multivitamin 1 tab PO DAILY [facility] 01/20/23 01/20/23 History ascorbic acid (vitamin C) 500 mg 500 mg PO DAILY 03/18 Unknown History tablet (C-500) cranberry 500 mg capsule 500 mg PO TID 03/18/23 Unkno wn History atorvastatin 40 mg tablet 40 mg PO QHS 05/19/23 Unknow n History lactobacillus combination no.9 4 4,000 mmu cells PO DA PRATIK 05/19/23 Unknown History billion cell capsule (Adult 50 Plus Probiotic) acetaminophen 500 mg tablet 1,000 mg PO DAILY pain Unknown History simethicone 80 mg chewable tablet 80 mg PO BID 4 Unknown History (Gas Relief (simethicone)) ubrogepant 100 mg tablet (Ubrelvy) mg PO .0prn PRN hea dache 01/25/24 Unknown History escitalopram oxalate 5 mg tablet 5 mg PO DAILY 4 Unknown History (Lexapro) nitroglycerin 0.4 mg sublingual 0.4 mg sublingual Q5-1 5M PRN Chest 07/26/24 Unknown Rx tablet Pain #25 tabs apixaban 5 mg tablet (Eliquis) 5 mg PO BID #180 tabs 0 11/08/24 Unknown Rx metoprolol tartrate 50 mg tablet 100 mg (2 x 50 mg) PO BID #180 tabs 01/16/25 Unknown Rx Allergy/AdvReac Type Severity Reaction Status Date / Time ciprofloxacin (From Cipro) Allergy Hives Verified 01/17/25 05:21 ciprofloxacin HCl (From Allergy Hives Verified 01/17/25 05:21 Cipro) atropine (From Lomotil) AdvReac Nausea Verified 01/17/25 05:21 dicyclomine (From Bentyl) AdvReac Other Verified 01/17/25 05:21 diphenoxylate (From Lomotil) AdvReac Nausea Verified 01/17/25 05:21 erythromycin base AdvReac Vomiting Verified 01/17/25 05:21 (Erythromycin Base) hydromorphone HCl (From AdvReac anxiety Verified 01/17/25 05:21 Dilaudid) latex AdvReac Rash Verified 01/17/25 05:21 prochlorperazine edisylate AdvReac anxiety Verified 01/17/25 05:21 (From Compazine) prochlorperazine maleate AdvReac anxiety Verified 01/17/25 05:21 (From Compazine) Family History Father CAD (coronary artery disease) Mother CVA (cerebral vascular accident) Diabetes Sister Heart disease Valvular-mitral Grandmother CAD (coronary artery disease) Grandfather CAD (coronary artery disease) Surgical History History of dilation of urethra History of breast surgery History of esophagogastroduodenoscopy (EGD) History of colonoscopy History of surgery on lower extremity H/O hysterectomy with unilateral oophorectomy History of tonsillectomy History of right knee joint replacement History of left knee replacement History of colon surgery History of cholecystectomy History of appendectomy Social History Smoking Status: Never smoker alcohol intake: never substance use type: does not use caffeine: Yes Type: coffee and tea ROS ROS Narrative Patient resting on her side flat on the gurney in the emergency department. Sheappears in moderate distress due to nausea. Constitutional Constitutional: Reports as per HPI Eyes Eyes: Reports systems reviewed and no addt'l complaints, except as documented ENT HEENT: Reports systems reviewed and no addt'l complaints, except as documented Cardiovascular Cardiovascular: Reports as per HPI Respiratory/Chest Respiratory/Chest: Reports as per HPI Gastrointestinal Gastrointestinal: Reports as per HPI Genitourinary Genitourinary: Reports systems reviewed and no addt'l complaints, except as documented Musculoskeletal Musculoskeletal: Reports systems reviewed and no addt'l complaints, except as documented Integumentary Integumentary: Reports systems reviewed and no addt'l complaints, except as documented Neurologic Neurologic: Reports systems reviewed and no addt'l complaints, except as documented Psychiatric Psychiatric: Reports systems reviewed and no addt'l complaints, except as documented Endocrine Endocrinology: Reports systems reviewed and no addt'l complaints, except as documented Hematologic/Lymphatic Hematologic/Lymphatic: Reports systems reviewed and no addt'l complaints, exceptas documented Allergic/Immunologic Allergic/Immunologic: Reports systems reviewed and no addt'l complaints, except as documented Physical Exam Narrative Sickly appearing obese white female resting on her right side and flat on the gurney. O2 saturation 95% on nasal cannula. Const alert and oriented x3 HEENT normocephalic Eyes EOMs intact bilaterally Neck Neck Narrative: Thick neck unable to assess JVD. Chest inspection of chest normal Resp clear to auscultation bilaterally Resp Narrative: Mildly tachypneic but no definitive crackles or rales auscultated. Auscultation: Negative for rales Cardio Rate: regular rate Rhythm: regular rhythm Heart Sounds: S1 normal, S2 normal, click and murmur systolic I/ soft mid leftsternal border; Negative for gallop GI GI Narrative: Obese with positive bowel sounds complains of mild tenderness. Extremity no pedal edema Extremity Narrative: Enlarged lower extremities without any definitive significant edema. Neuro Neuro Narrative: Lethargic but easily arousable and oriented x 3 Psych mental status grossly normal Risk Stratification Risk Stratification Applicable: No Charges/Coding Visit Charges Inpatient E&M: 93616 Init Hosp L3 Objective Data Vital Signs: Vital Signs Temp Pulse Resp BP Pulse Ox O2 Del Method 97.6 F L 89 18 145/98 H 93 Room Air 01/17/25 05:15 01/17/25 07:15 01/17/25 07:15 01/17/25 07:15 01/17/25 07:15 01/17/25 05:48 Oxygen Delivery Method Room Air Weight: 218 lb 11.177 oz Body Mass Index (BMI) 38.7 Lab / Micro Data Attestation: I reviewed the patient's lab results. 01/17/25 05:38 01/17/25 05:38 Labs: Laboratory Results - last 24 hr 01/17/25 05:38: WBC 8.7, RBC 3.90 L, Hgb 11.7 L, Hct 35.3 L, MCV 90.5, MCH 30.0,MCHC 33.1, RDW Std Deviation 47.9 H, RDW Coeff of Laina 14.8 H, Plt Count 233, MPV10.2, Immature Gran % (Auto) 0.300, Neut % (Auto) 71.3 H, Lymph % (Auto) 16.5 L,Dewitt % (Auto) 8.2, Eos % (Auto) 3.0, Baso % (Auto) 0.7, Absolute Neuts (auto) 6.2, Absolute Lymphs (auto) 1.44, Nucleated RBC % 0, Sodium 141, Potassium 3.7, Chloride 107, Carbon Dioxide 23.4, Anion Gap 10, BUN 19, Creatinine 0.63 L, Estim Creat Clear Calc 65.07, Est GFR (MDRD) Non-Af 91, BUN/Creatinine Ratio 29.8 H, Glucose 125 H, Calcium 9.1, Troponin T High Sens 10, NT pro BNP II 2630 H Rhythm Strip Rhythm Strip: Sinus Rhythm Rate: 70 Ectopy: PVC(s) Cardiology Labs/Tests 01/17/25 05:38: WBC 8.7, RBC 3.90 L, Hgb 11.7 L, Hct 35.3 L, MCV 90.5, MCH 30.0,MCHC 33.1, Plt Count 233, MPV 10.2, Immature Gran % (Auto) 0.300, Neut % (Auto) 71.3 H, Lymph % (Auto) 16.5 L, Dewitt % (Auto) 8.2, Eos % (Auto) 3.0, Baso % (Auto) 0.7, Absolute Neuts (auto) 6.2, Nucleated RBC % 0, Sodium 141, Potassium 3.7, Chloride 107, Carbon Dioxide 23.4, Anion Gap 10, BUN 19, Creatinine 0.63 L,Est GFR (MDRD) Non-Af 91, BUN/Creatinine Ratio 29.8 H, Glucose 125 H, Calcium 9.1 Rhythm: EKG: ECHO: Stress Test: Cardiac Cath: PCI: CT Surgery: Holter monitor: EPS: PPM: CXR: Chest CT Scan: Radiography Diagnostic Testing: Radiology Impression Chest X-Ray 01/17/25 06:00 IMPRESSION: Worsening pulmonary vascular congestion. Follow-up until clearing is recommended. Reading Location: [id number] 01/17/25 0758 <Electronically signed by Pato Simmons MD> Cosigner Signature (if applicable): CC: Dr. Rosendo Brown MD~ Signed [facility] Work Phone: [phone] Discharge summary Author Jacinto Flores [facility] Note Date/Time January 17, 2025 7:20am [facility] Medical Records Department [address] [place] [address] Emergency Department Summary 01/17/25 MR#: [id number] Acct: [id number] Name: SAHARA MELÉNDEZ Rep #:[id number] : 1945 79 From: Jacinto Flores MD PCP: Dr. Rosendo Brown MD Status:REG E R Location: ED HPI History of Present Illness Chief Complaint: Shortness of Breath Informant: patient, spouse/S.O. and EMS Narrative Narrative: 79-year-old female presenting to the ER for dyspnea. This has been going on forabout a week. Presenting at around 5:30 AM because it is worse. She was seen in the cardiology office yesterday for this, she has a history of paroxysmal atrial fibrillation, she was in A-fib yesterday, thought to be in it for a whileand causing her to be the rapid ventricular response and dyspneic from that, so they plan on cardioversion tomorrow. She denies having any chest pain. No cough or fevers. She does not feel palpitations. She has been very tired. Maybe some swelling in her legs she thinks. [facility] Medical History Dyspnea on exertion Wears glasses High cholesterol TIA (transient ischemic attack) History of IBS History of diverticulitis History of Holter monitoring History of atrial fibrillation Cardiology follow-up encounter Wears partial dentures Arthritis Interstitial cystitis Bladder disease Easy bruising PONV (postoperative nausea and vomiting) Migraine headache Dietary restriction History of hiatal hernia Gastric reflux Non-smoker Shortness of breath on exertion History of edema History of stress test History of echocardiogram Femur fracture, left Esophagitis IBS (irritable bowel syndrome) Hepatic cyst Renal cyst Non-rheumatic mitral regurgitation Nonrheumatic mitral (valve) prolapse Ventricular ectopy Colitis Fibromyalgia Diverticulosis Anxiety and depression Diarrhea Mitral valve prolapse syndrome Home Medications ?Medication ?Instructions ?Recorded ?Last Taken ?Type multivitamin 1 tab PO DAILY health mainte nance 01/20/23 01/20/23 History ascorbic acid (vitamin C) 500 mg 500 mg PO DAILY 03/18 Unknown History tablet (C-500) cranberry 500 mg capsule 500 mg PO TID 03/18/23 Unkno wn History atorvastatin 40 mg tablet 40 mg PO QHS 05/19/23 Unknow n History lactobacillus combination no.9 4 4,000 mmu cells PO DA PRATIK 05/19/23 Unknown History billion cell capsule (Adult 50 Plus Probiotic) acetaminophen 500 mg tablet 1,000 mg PO DAILY pain Unknown History simethicone 80 mg chewable tablet 80 mg PO BID 4 Unknown History (Gas Relief (simethicone)) ubrogepant 100 mg tablet (Ubrelvy) mg PO .0prn PRN hea dache 01/25/24 Unknown History escitalopram oxalate 5 mg tablet 5 mg PO DAILY 4 Unknown History (Lexapro) nitroglycerin 0.4 mg sublingual 0.4 mg sublingual Q5-1 5M PRN Chest 07/26/24 Unknown Rx tablet Pain #25 tabs apixaban 5 mg tablet (Eliquis) 5 mg PO BID #180 tabs 0 11/08/24 Unknown Rx metoprolol tartrate 50 mg tablet 100 mg (2 x 50 mg) PO BID #180 tabs 01/16/25 Unknown Rx Allergy/AdvReac Type Severity Reaction Status Date / Time ciprofloxacin (From Cipro) Allergy Hives Verified 01/17/25 05:21 ciprofloxacin HCl (From Allergy Hives Verified 01/17/25 05:21 Cipro) atropine (From Lomotil) AdvReac Nausea Verified 01/17/25 05:21 dicyclomine (From Bentyl) AdvReac Other Verified 01/17/25 05:21 diphenoxylate (From Lomotil) AdvReac Nausea Verified 01/17/25 05:21 erythromycin base AdvReac Vomiting Verified 01/17/25 05:21 (Erythromycin Base) hydromorphone HCl (From AdvReac anxiety Verified 01/17/25 05:21 Dilaudid) latex AdvReac Rash Verified 01/17/25 05:21 prochlorperazine edisylate AdvReac anxiety Verified 01/17/25 05:21 (From Compazine) prochlorperazine maleate AdvReac anxiety Verified 01/17/25 05:21 (From Compazine) Family History Father CAD (coronary artery disease) Mother CVA (cerebral vascular accident) Diabetes Sister Heart disease Valvular-mitral Grandmother CAD (coronary artery disease) Grandfather CAD (coronary artery disease) Surgical History History of dilation of urethra History of breast surgery History of esophagogastroduodenoscopy (EGD) History of colonoscopy History of surgery on lower extremity H/O hysterectomy with unilateral oophorectomy History of tonsillectomy History of right knee joint replacement History of left knee replacement History of colon surgery History of cholecystectomy History of appendectomy Social History Smoking Status: Never smoker alcohol intake: never substance use type: does not use caffeine: Yes Type: coffee and tea ROS ROS ED Constitutional Constitutional ED: Reports fatigue; Denies chills or fever(s) Eyes Eyes: Denies change in vision or diplopia ENT ENT ED: Denies rhinorrhea or sore throat Cardiovascular Cardiovascular: Reports leg edema; Denies chest pain, lightheadedness, palpitations or syncope Respiratory/Chest Respiratory/Chest: Reports dyspnea; Denies cough Gastrointestinal Gastrointestinal: Denies abdominal pain, diarrhea, nausea or vomiting Genitourinary Genitourinary ED: Denies dysuria or hematuria Musculoskeletal Musculoskeletal: Denies back pain or neck pain Integumentary Denies abscess or rash Neurologic Neurologic: Denies headache(s), paresthesias or weakness Psychiatric Psychiatric: Denies suicidal thoughts EXAM Physical Exam Const Vital Signs: 01/17/25 05:15 01/17/25 05:48 01/17/25 05:48 Temperature 97.6 F L Temperature Source Oral Pulse Rate 73 Respiratory Rate 18 Respiratory Effort Normal Blood Pressure 142/76 H Blood Pressure Mean 98 Pulse Ox 93 Oxygen Delivery Method Room Air Room Air Positive well nourished and well developed General Appearance ED: well developed and NAD HEENT Reports moist mucous membranes normocephalic and atraumatic Eyes PERRL and EOMs intact bilaterally Neck full ROM, supple and no JVD Resp Resp Narrative: Tachypnea at rest but no distress Auscultation: wheezes expiratory wheezes and lower bilaterally Cardio Rate: Negative for tachycardic Rhythm: abnormal rhythm irregularly irregular GI non-tender and non-distended Auscultation: normoactive bowel sounds Palpation: soft Back/Spine no CVA tenderness General Back: other FROM Extremity normal to inspection General Extremety ED: Negative for edema, pulses abnormal or tenderness General Extremity: Negative for edema or pulses abnormal Neuro oriented x3, CN's II-XII intact bilaterally and no sensory deficits noted Sensorium / Orientation: awake and alert Motor Exam: strength 5/5 throughout Psych Mood & Affect: anxious Skin no rashes or lesions noted and no wounds MDM MDM MDM Narrative Medical decision making narrative: Patient was seen in the office yesterday I reviewed that note. She has been anticoagulated since 2022 so I do not think she needs to be worked up for pulmonary embolus here. She had an echo in August 2024 that showed 60% EF andmild- moderate mitral insufficiency. She had an event monitor back in 2022 that showed multiple runs of nonsustained ventricular tachycardia. She had a negative stress test. Right now she is not tachycardic but is in A-fib, not having chest pain, EKG shows no acute injury, and her vital signs are otherwise normal. She sounds a little wheezy and does not have a history of lung disease/COPD. In case this is pulmonary edema, I am not going to give her breathing treatments and she is clinically stable and I do not want to make her tachycardic. 1 view chest x-ray on my interpretation does appear to be pulmonary edema, and her proBNP is significantly elevated consistent with this. Therefore she was given IV furosemide. Her troponin is within normal limits. Her A-fib is currently rate controlled. Discussed with cardiology Dr. Simmons, who recommendscardioverting the patient now since she has been anticoagulated for almost 2 years, and in addition to the Lasix that may really help. however, upon reexamination, she is in NSR and going in and out of atrial fibrillation frequently, although in NSR most of the time now. Therefore Dr. Simmons recommends admission and holding her metoprolol, and instead giving her Sotolol 80mg BID; we will give her the first dose here, and then he recommends an EKG a couple hrslater to check her QT, followed by repeat EKGs qAM to monitor her QT interval. History & Record Review Additional record(s) reviewed:: Prior outpatient record Lab Data Attestation: I reviewed the patient's lab results. Labs: Laboratory Results - last 24 hr 01/17/25 05:38 WBC 8.7 RBC 3.90 L Hgb 11.7 L Hct 35.3 L MCV 90.5 MCH 30.0 MCHC 33.1 RDW Std Deviation 47.9 H RDW Coeff of Laina 14.8 H Plt Count 233 MPV 10.2 Immature Gran % (Auto) 0.300 Neut % (Auto) 71.3 H Lymph % (Auto) 16.5 L Dewitt % (Auto) 8.2 Eos % (Auto) 3.0 Baso % (Auto) 0.7 Absolute Neuts (auto) 6.2 Absolute Lymphs (auto) 1.44 Nucleated RBC % 0 Sodium 141 Potassium 3.7 Chloride 107 Carbon Dioxide 23.4 Anion Gap 10 BUN 19 Creatinine 0.63 L Estim Creat Clear Calc 65.07 Est GFR (MDRD) Non-Af 91 BUN/Creatinine Ratio 29.8 H Glucose 125 H Calcium 9.1 Troponin T High Sens 10 NT pro BNP II 2630 H Radiography Diagnostic Testing: Clinical Impression(s) from Imaging Studies Chest X-Ray 01/17/25 06:00 IMPRESSION: Worsening pulmonary vascular congestion. Follow-up until clearing is recommended. Reading Location: [facility] Rhythm Strip Rhythm Strip: A-fib Rate: 85 Ectopy: PVC(s) EKG Initial EKG: Attestation: I personally reviewed and interpreted this EKG as follows: Interpretation: No Acute Injury Pattern, Atrial Fibrillation, Non-SpecificST Changes and - (PVCs) Management Discussion w/another healthcare provider: Hospitalist and [employer] Binding Folder Discharge Plan Dx/Rx/DC Orders Clinical Impression: Acute respiratory insufficiency, Paroxysmal atrial fibrillation, Pulmonary edema Disposition Disposition: Acute Care Hospital [facility] What to do if you have Problems For any increased pain, shortness of breath, bleeding, nausea or vomiting, chestpain, or any unexpected problems, contact your Primary Care Provider. Call [facility] ([phone]) or report to the closest Emergency Room. Call 911 if necessary. 01/17/25 0720 <Electronically signed by Jacinto Flores MD> Cosigner Signature (if applicable): CC: Dr. Rosendo Brown MD ~ Signed [facility] Work Phone: [phone] Consult note [facility] Medical Records Department [address] [place] [address] Consultation - Cardiology 01/17/25 0743 MR#: [id number] Acct: [id number] Name: SAHARA MELÉNDEZ Rep #:[id number] : 1945 79 From: Pato Simmons MD PCP: Dr. Rosendo Brown MD Status:REG E R Location: ED Assessment & Plan Assessment/Plan (1) Paroxysmal atrial fibrillation: PLAN: Patient was documented to be in atrial fibrillation on 01/16/2025 in the [facility] office at a heart rate of 145 bpm. Metoprolol was increasedto 100 mg twice daily but the patient became progressively more short of breath and presented to the emergency department early on the morning of 01/17/2025. The patient's chest x-ray in the emergency department compared to the chest x- ray yesterday shows increasing pulmonary congestion. The patient spontaneously reverted into sinus rhythm and then flipped in and out of atrial fibrillation while being monitored in the emergency department. Sinus rate was controlled inthe 70 bpm there were PVCs noted the patient has a history of recurrent PVCs andnonsustained VT remotely. The patient also complains of chronic diarrhea and nausea for the last several weeks. She does havea history of celiac disease and is followed by Dr. David. Patient also has a history of mitral valve prolapse with moderate mitral regurgitation. She is obese and difficult to auscultate her cardiovascular exambut it does appear she has a faint 1/6 systolicmurmur and a audible click. Last echocardiogram was in 2022 which showed normal LV function EF of 60% and moderate mitral regurgitation with bileaflet prolapse. Given the patient's paroxysms of atrial fibrillation, her progressive dyspnea onexertion, her pulmonary congestion, and signs and symptoms of decreased cardiac output syndrome, I would recommend thatwe place her on sotalol 80 mg twice daily, replace any potassium as her potassium is 3.7 and she isreceiving diuretics, check an ECG for QT interval 2 to 3 hours after the first sotalol dose and then every morning. Will hold the metoprolol for the time being. Will repeat an echo to reevaluate the LV function and valvular heart disease. (2) Dyspnea on exertion: PLAN: This is probably multifactorial related to her potential for worsening mitral regurgitation and/or LV dysfunction, her paroxysms of atrial fibrillation, and her body habitus. Will continue with gentle diuresis her renal function is normal monitor her potassium and I's and O's. (3) Nonrheumatic mitral (valve) prolapse: PLAN: An echocardiogram be done to reevaluate the patient's known moderate mitral valve regurgitation related to her bileaflet prolapse. PLAN: Plan 1. Will add sotalol 80 mg twice daily. 2. Check QT interval with ECG in 2-3 hours. 3. ECG every morning while on sotalol in the hospital. 4. 2D echocardiogram to evaluate structural heart disease and LV function. 5. Continue with diuresis monitoring electrolytes and renal function. 6. Defers further evaluation of the nausea and GI issues to the primary service. HPI Consult Data Date of Consult: 01/17/25 HPI Narrative Reason for Consultation: Paroxysmal atrial fibrillation with rapid ventricular response HPI Narrative: SAHARA MELÉNDEZ, is a 79 F who presents with a 2-week history of progressive shortness of breath and dyspnea on exertion. This has been worsening over the last several days. She was evaluated in the [facility] office yesterday and was found to be in atrial fibrillation with a rapid ventricular spots of 145 bpm. The patient's metoprolol was increased to 100 mg twice daily and she was set up for elective direct-current cardioversion on January 18, 2025, tomorrow. The patient presented to the emergency room early this morning complaining of increasing shortness of breath chest x-ray was consistent with pulmonary congestion heart rate was in the 120 bpm range in atrial fibrillation. The vanessa ent is been on long-term oral oral anticoagulation and she has not missed any dosing. The plan was to cardiovert in the emergency department but she spontaneously reverted into sinus rhythm. Heart rate was in the 70 bpm in sinus rhythm but then she had a recurrence of her atrial fibrillation and has been flipping in and out of atrial fib. The patient also has multiple somatic complaints she has a history of chronic diarrhea she apparently was told that she had white blood cells in her stool andwas rereferred to Dr. David due to her nausea and diarrhea. Patient denies any chest pain she does have a history of mitral valve prolapse with moderate mitralregurgitation and normal LV function on an echocardiogram done February 2023. Patient also had a negative stress test February 2023 which showed sinus rhythm at 66 bpm and was negative for any ischemia. The patient denies any syncope or near syncope. She does have continued fatigue and weakness. The patient is being admitted for diuresis, sotalol loading, and further evaluation of her valvularheart disease. ECG in the emergency department showed normal sinus rhythm with frequent PVCs nosignificant ischemic changes documented. [facility] Medical History Dyspnea on exertion Wears glasses High cholesterol TIA (transient ischemic attack) History of IBS History of diverticulitis History of Holter monitoring History of atrial fibrillation Cardiology follow-up encounter Wears partial dentures Arthritis Interstitial cystitis Bladder disease Easy bruising PONV (postoperative nausea and vomiting) Migraine headache Dietary restriction History of hiatal hernia Gastric reflux Non-smoker Shortness of breath on exertion History of edema History of stress test History of echocardiogram Femur fracture, left Esophagitis IBS (irritable bowel syndrome) Hepatic cyst Renal cyst Non-rheumatic mitral regurgitation Nonrheumatic mitral (valve) prolapse Ventricular ectopy Colitis Fibromyalgia Diverticulosis Anxiety and depression Diarrhea Mitral valve prolapse syndrome Home Medications ?Medication ?Instructions ?Recorded ?Last Taken ?Type multivitamin 1 tab PO DAILY health mainte nance 01/20/23 01/20/23 History ascorbic acid (vitamin C) 500 mg 500 mg PO DAILY 03/18 Unknown History tablet (C-500) cranberry 500 mg capsule 500 mg PO TID 03/18/23 Unkno wn History atorvastatin 40 mg tablet 40 mg PO QHS 05/19/23 Unknow n History lactobacillus combination no.9 4 4,000 mmu cells PO DA PRATIK 05/19/23 Unknown History billion cell capsule (Adult 50 Plus Probiotic) acetaminophen 500 mg tablet 1,000 mg PO DAILY pain Unknown History simethicone 80 mg chewable tablet 80 mg PO BID 4 Unknown History (Gas Relief (simethicone)) ubrogepant 100 mg tablet (Ubrelvy) mg PO .0prn PRN hea dache 01/25/24 Unknown History escitalopram oxalate 5 mg tablet 5 mg PO DAILY 4 Unknown History (Lexapro) nitroglycerin 0.4 mg sublingual 0.4 mg sublingual Q5-1 5M PRN Chest 07/26/24 Unknown Rx tablet Pain #25 tabs apixaban 5 mg tablet (Eliquis) 5 mg PO BID #180 tabs 0 11/08/24 Unknown Rx metoprolol tartrate 50 mg tablet 100 mg (2 x 50 mg) PO BID #180 tabs 01/16/25 Unknown Rx Allergy/AdvReac Type Severity Reaction Status Date / Time ciprofloxacin (From Cipro) Allergy Hives Verified 01/17/25 05:21 ciprofloxacin HCl (From Allergy Hives Verified 01/17/25 05:21 Cipro) atropine (From Lomotil) AdvReac Nausea Verified 01/17/25 05:21 dicyclomine (From Bentyl) AdvReac Other Verified 01/17/25 05:21 diphenoxylate (From Lomotil) AdvReac Nausea Verified 01/17/25 05:21 erythromycin base AdvReac Vomiting Verified 01/17/25 05:21 (Erythromycin Base) hydromorphone HCl (From AdvReac anxiety Verified 01/17/25 05:21 Dilaudid) latex AdvReac Rash Verified 01/17/25 05:21 prochlorperazine edisylate AdvReac anxiety Verified 01/17/25 05:21 (From Compazine) prochlorperazine maleate AdvReac anxiety Verified 01/17/25 05:21 (From Compazine) Family History Father CAD (coronary artery disease) Mother CVA (cerebral vascular accident) Diabetes Sister Heart disease Valvular-mitral Grandmother CAD (coronary artery disease) Grandfather CAD (coronary artery disease) Surgical History History of dilation of urethra History of breast surgery History of esophagogastroduodenoscopy (EGD) History of colonoscopy History of surgery on lower extremity H/O hysterectomy with unilateral oophorectomy History of tonsillectomy History of right knee joint replacement History of left knee replacement History of colon surgery History of cholecystectomy History of appendectomy Social History Smoking Status: Never smoker alcohol intake: never substance use type: does not use caffeine: Yes Type: coffee and tea ROS ROS Narrative Patient resting on her side flat on the gurney in the emergency department. Sheappears in moderate distress due to nausea. Constitutional Constitutional: Reports as per HPI Eyes Eyes: Reports systems reviewed and no addt'l complaints, except as documented ENT HEENT: Reports systems reviewed and no addt'l complaints, except as documented Cardiovascular Cardiovascular: Reports as per HPI Respiratory/Chest Respiratory/Chest: Reports as per HPI Gastrointestinal Gastrointestinal: Reports as per HPI Genitourinary Genitourinary: Reports systems reviewed and no addt'l complaints, except as documented Musculoskeletal Musculoskeletal: Reports systems reviewed and no addt'l complaints, except as documented Integumentary Integumentary: Reports systems reviewed and no addt'l complaints, except as documented Neurologic Neurologic: Reports systems reviewed and no addt'l complaints, except as documented Psychiatric Psychiatric: Reports systems reviewed and no addt'l complaints, except as documented Endocrine Endocrinology: Reports systems reviewed and no addt'l complaints, except as documented Hematologic/Lymphatic Hematologic/Lymphatic: Reports systems reviewed and no addt'l complaints, exceptas documented Allergic/Immunologic Allergic/Immunologic: Reports systems reviewed and no addt'l complaints, except as documented Physical Exam Narrative Sickly appearing obese white female resting on her right side and flat on the gurney. O2 [id number]% on nasal cannula. Const alert and oriented x3 HEENT normocephalic Eyes EOMs intact bilaterally Neck Neck Narrative: Thick neck unable to assess JVD. Chest inspection of chest normal Resp clear to auscultation bilaterally Resp Narrative: Mildly tachypneic but no definitive crackles or rales auscultated. Auscultation: Negative for rales Cardio Rate: regular rate Rhythm: regular rhythm Heart Sounds: S1 normal, S2 normal, click and murmur systolic I/ soft mid leftsternal border; Negative for gallop GI GI Narrative: Obese with positive bowel sounds complains of mild tenderness. Extremity no pedal edema Extremity Narrative: Enlarged lower extremities without any definitive significant edema. Neuro Neuro Narrative: Lethargic but easily arousable and oriented x 3 Psych mental status grossly normal Risk Stratification Risk Stratification Applicable: No Charges/Coding Visit Charges Inpatient E&M: 24274 Init Hosp L3 Objective Data Vital Signs: Vital Signs Temp Pulse Resp BP Pulse Ox O2 Del Method 97.6 F L 89 18 145/98 H 93 Room Air 01/17/25 05:15 01/17/25 07:15 01/17/25 07:15 01/17/25 07:15 01/17/25 07:15 01/17/25 05:48 Oxygen Delivery Method Room Air Weight: 218 lb 11.177 oz Body Mass Index (BMI) 38.7 Lab / Micro Data Attestation: I reviewed the patient's lab results. 01/17/25 05:38 01/17/25 05:38 Labs: Laboratory Results - last 24 hr 01/17/25 05:38: WBC 8.7, RBC 3.90 L, Hgb 11.7 L, Hct 35.3 L, MCV 90.5, MCH 30.0,MCHC 33.1, RDW Std Deviation 47.9 H, RDW Coeff of Laina 14.8 H, Plt Count 233, MPV10.2, Immature Gran % (Auto) 0.300, Neut % (Auto) 71.3 H, Lymph % (Auto) 16.5 L,Dewitt % (Auto) 8.2, Eos % (Auto) 3.0, Baso % (Auto) 0.7, Absolute Neuts (auto) 6.2, Absolute Lymphs (auto) 1.44, Nucleated RBC % 0, Sodium 141, Potassium 3.7, Chloride 107, Carbon Dioxide 23.4, Anion Gap 10, BUN 19, Creatinine 0.63 L, Estim Creat Clear Calc 65.07, Est GFR (MDRD) Non-Af 91, BUN/Creatinine Ratio 29.8 H, Glucose 125 H, Calcium 9.1, Troponin T High Sens 10, NT pro BNP II 2630 H Rhythm Strip Rhythm Strip: Sinus Rhythm Rate: 70 Ectopy: PVC(s) Cardiology Labs/Tests 01/17/25 05:38: WBC 8.7, RBC 3.90 L, Hgb 11.7 L, Hct 35.3 L, MCV 90.5, MCH 30.0,MCHC 33.1, Plt Count 233, MPV 10.2, Immature Gran % (Auto) 0.300, Neut % (Auto) 71.3 H, Lymph % (Auto) 16.5 L, Dewitt % (Auto) 8.2, Eos % (Auto) 3.0, Baso % (Auto) 0.7, Absolute Neuts (auto) 6.2, Nucleated RBC % 0, [id number], Potassium 3.7, Chloride 107, Carbon Dioxide 23.4, Anion Gap 10, BUN 19, Creatinine 0.63 L,Est GFR (MDRD) Non-Af 91, BUN/Creatinine Ratio 29.8 H, Glucose 125 H, Calcium 9.1 Rhythm: EKG: ECHO: Stress Test: Cardiac Cath: PCI: CT Surgery: Holter monitor: EPS: PPM: CXR: Chest CT Scan: Radiography Diagnostic Testing: Radiology Impression Chest X-Ray 01/17/25 06:00 IMPRESSION: Worsening pulmonary vascular congestion. Follow-up until clearing is recommended. Reading Location: [facility] 01/17/25 9783 Cosigner Signature (if applicable): CC: Dr. Rosendo Brown MD~ Signed [facility]05-08-2025 Discharge summary [facility] Medical Records Department [address] [place] [address] Emergency Department Summary 01/17/25 MR#: [id number] Acct: [id number] Name: SAHARA MELÉNDEZ Rep #:[id number] : 1945 79 From: Jacinto Flores MD PCP: Dr. Rosendo Brown MD Status:REG E R Location: ED HPI History of Present Illness Chief Complaint: Shortness of Breath Informant: patient, spouse/S.O. and EMS Narrative Narrative: 79-year-old female presenting to the ER for dyspnea. This has been going on forabout a week. Presenting at around 5:30 AM because it is worse. She was seen in the cardiology office yesterday for this, she has a history of paroxysmal atrial fibrillation, she was in A-fib yesterday, thought to be in it for a whileand causing her to be the rapid ventricular response and dyspneic from that, so they plan on cardioversion tomorrow. She denies having any chest pain. No cough or fevers. She does not feel palpitations. She has been very tired. Maybe some swelling in her legs she thinks. [facility] Medical History Dyspnea on exertion Wears glasses High cholesterol TIA (transient ischemic attack) History of IBS History of diverticulitis History of Holter monitoring History of atrial fibrillation Cardiology follow-up encounter Wears partial dentures Arthritis Interstitial cystitis Bladder disease Easy bruising PONV (postoperative nausea and vomiting) Migraine headache Dietary restriction History of hiatal hernia Gastric reflux Non-smoker Shortness of breath on exertion History of edema History of stress test History of echocardiogram Femur fracture, left Esophagitis IBS (irritable bowel syndrome) Hepatic cyst Renal cyst Non-rheumatic mitral regurgitation Nonrheumatic mitral (valve) prolapse Ventricular ectopy Colitis Fibromyalgia Diverticulosis Anxiety and depression Diarrhea Mitral valve prolapse syndrome Home Medications ?Medication ?Instructions ?Recorded ?Last Taken ?Type multivitamin 1 tab PO DAILY [facility] 01/20/23 01/20/23 History ascorbic acid (vitamin C) 500 mg 500 mg PO DAILY 03/18 Unknown History tablet (C-500) cranberry 500 mg capsule 500 mg PO TID 03/18/23 Unkno wn History atorvastatin 40 mg tablet 40 mg PO QHS 05/19/23 Unknow n History lactobacillus combination no.9 4 4,000 mmu cells PO DA PRATIK 05/19/23 Unknown History billion cell capsule (Adult 50 Plus Probiotic) acetaminophen 500 mg tablet 1,000 mg PO DAILY pain Unknown History simethicone 80 mg chewable tablet 80 mg PO BID 4 Unknown History (Gas Relief (simethicone)) ubrogepant 100 mg tablet (Ubrelvy) mg PO .0prn PRN hea dache 01/25/24 Unknown History escitalopram oxalate 5 mg tablet 5 mg PO DAILY 4 Unknown History (Lexapro) nitroglycerin 0.4 mg sublingual 0.4 mg sublingual Q5-1 5M PRN Chest 07/26/24 Unknown Rx tablet Pain #25 tabs apixaban 5 mg tablet (Eliquis) 5 mg PO BID #180 tabs 0 11/08/24 Unknown Rx metoprolol tartrate 50 mg tablet 100 mg (2 x 50 mg) PO BID #180 tabs 01/16/25 Unknown Rx Allergy/AdvReac Type Severity Reaction Status Date / Time ciprofloxacin (From Cipro) Allergy Hives Verified 01/17/25 05:21 ciprofloxacin HCl (From Allergy Hives Verified 01/17/25 05:21 Cipro) atropine (From Lomotil) AdvReac Nausea Verified 01/17/25 05:21 dicyclomine (From Bentyl) AdvReac Other Verified 01/17/25 05:21 diphenoxylate (From Lomotil) AdvReac Nausea Verified 01/17/25 05:21 erythromycin base AdvReac Vomiting Verified 01/17/25 05:21 (Erythromycin Base) hydromorphone HCl (From AdvReac anxiety Verified 01/17/25 05:21 Dilaudid) latex AdvReac Rash Verified 01/17/25 05:21 prochlorperazine edisylate AdvReac anxiety Verified 01/17/25 05:21 (From Compazine) prochlorperazine maleate AdvReac anxiety Verified 01/17/25 05:21 (From Compazine) Family History Father CAD (coronary artery disease) Mother CVA (cerebral vascular accident) Diabetes Sister Heart disease Valvular-mitral Grandmother CAD (coronary artery disease) Grandfather CAD (coronary artery disease) Surgical History History of dilation of urethra History of breast surgery History of esophagogastroduodenoscopy (EGD) History of colonoscopy History of surgery on lower extremity H/O hysterectomy with unilateral oophorectomy History of tonsillectomy History of right knee joint replacement History of left knee replacement History of colon surgery History of cholecystectomy History of appendectomy Social History Smoking Status: Never smoker alcohol intake: never substance use type: does not use caffeine: Yes Type: coffee and tea ROS ROS ED Constitutional Constitutional ED: Reports fatigue; Denies chills or fever(s) Eyes Eyes: Denies change in vision or diplopia ENT ENT ED: Denies rhinorrhea or sore throat Cardiovascular Cardiovascular: Reports leg edema; Denies chest pain, lightheadedness, palpitations or syncope Respiratory/Chest Respiratory/Chest: Reports dyspnea; Denies cough Gastrointestinal Gastrointestinal: Denies abdominal pain, diarrhea, nausea or vomiting Genitourinary Genitourinary ED: Denies dysuria or hematuria Musculoskeletal Musculoskeletal: Denies back pain or neck pain Integumentary Denies abscess or rash Neurologic Neurologic: Denies headache(s), paresthesias or weakness Psychiatric Psychiatric: Denies suicidal thoughts EXAM Physical Exam Const Vital Signs: 01/17/25 05:15 01/17/25 05:48 01/17/25 05:48 Temperature 97.6 F L Temperature Source Oral Pulse Rate 73 Respiratory Rate 18 Respiratory Effort Normal Blood Pressure 142/76 H Blood Pressure Mean 98 Pulse Ox 93 Oxygen Delivery Method Room Air Room Air Positive well nourished and well developed General Appearance ED: well developed and NAD HEENT Reports moist mucous membranes normocephalic and atraumatic Eyes PERRL and EOMs intact bilaterally Neck full ROM, supple and no JVD Resp Resp Narrative: Tachypnea at rest but no distress Auscultation: wheezes expiratory wheezes and lower bilaterally Cardio Rate: Negative for tachycardic Rhythm: abnormal rhythm irregularly irregular GI non-tender and non-distended Auscultation: normoactive bowel sounds Palpation: soft Back/Spine no CVA tenderness General Back: other FROM Extremity normal to inspection General Extremety ED: Negative for edema, pulses abnormal or tenderness General Extremity: Negative for edema or pulses abnormal Neuro oriented x3, CN's II-XII intact bilaterally and no sensory deficits noted Sensorium / Orientation: awake and alert Motor Exam: strength 5/5 throughout Psych Mood & Affect: anxious Skin no rashes or lesions noted and no wounds MDM MDM MDM Narrative Medical decision making narrative: Patient was seen in the office yesterday I reviewed that note. She has been anticoagulated since 2022 so I do not think she needs to be worked up for pulmonary embolus here. She had an echo in August 2024 that showed 60% EF andmild-moderate mitral insufficiency. She had an event monitor back in 2022 that showed multiple runs of nonsustained ventricular tachycardia. She had a negative stress test. Right now she is not tachycardic but is in A-fib, not having chest pain, EKG shows no acute injury, and her vital signs are otherwise normal. She sounds a little wheezy and does not have a history of lung disease/COPD. In case this is pulmonary edema, I am not going to give her breathing treatments and she is clinically stable and I do not want to make her tachycardic. 1 view chest x-ray on my interpretation does appear to be pulmonary edema, and her proBNP is significantly elevated consistent with this. Therefore she was given IV furosemide. Her troponin is withinnormal limits. Her A-fib is currently rate controlled. Discussed with cardiology Dr. Simmons, who rec ommendscardioverting the patient now since she has been anticoagulated for almost 2 years, and in addition to the Lasix that may really help. however, upon reexamination, she is in NSR and going in and out of atrial fibrillation frequently, although in NSR most of the time now. Therefore Dr. Simmonsrecommends admission and holding her metoprolol, and instead giving her Sotolol 80mg BID; we will give her the first dose here, and then he recommends an EKG a couple hrslater to check her QT, followed by repeat EKGs qAM to monitor her QT interval. History & Record Review Additional record(s) reviewed:: Prior outpatient record Lab Data Attestation: I reviewed the patient's lab results. Labs: Laboratory Results - last 24 hr 01/17/25 05:38 WBC 8.7 RBC 3.90 L Hgb 11.7 L Hct 35.3 L MCV 90.5 MCH 30.0 MCHC 33.1 RDW Std Deviation 47.9 H RDW Coeff of Laina 14.8 H Plt Count 233 MPV 10.2 Immature Gran % (Auto) 0.300 Neut % (Auto) 71.3 H Lymph % (Auto) 16.5 L Dewitt % (Auto) 8.2 Eos % (Auto) 3.0 Baso % (Auto) 0.7 Absolute Neuts (auto) 6.2 Absolute Lymphs (auto) 1.44 Nucleated RBC % 0 Sodium 141 Potassium 3.7 Chloride 107 Carbon Dioxide 23.4 Anion Gap 10 BUN 19 Creatinine 0.63 L Estim Creat Clear Calc 65.07 Est GFR (MDRD) Non-Af 91 BUN/Creatinine Ratio 29.8 H Glucose 125 H Calcium 9.1 Troponin T High Sens 10 NT pro BNP II 2630 H Radiography Diagnostic Testing: Clinical Impression(s) from Imaging Studies Chest X-Ray 01/17/25 06:00 IMPRESSION: Worsening pulmonary vascular congestion. Follow-up until clearing is recommended. Reading Location: [facility] Rhythm Strip Rhythm Strip: A-fib Rate: 85 Ectopy: PVC(s) EKG Initial EKG: Attestation: I personally reviewed and interpreted this EKG as follows: Interpretation: No Acute Injury Pattern, Atrial Fibrillation, Non-SpecificST Changes and - (PVCs) Management Discussion w/another healthcare provider: Hospitalist and Bias Binding Folder Discharge Plan Dx/Rx/DC Orders Clinical Impression: Acute respiratory insufficiency, Paroxysmal atrial fibrillation, Pulmonary edema Disposition Disposition: Acute Care Hospital [facility] What to do if you have Problems For any increased pain, shortness of breath, bleeding, nausea or vomiting, chestpain, or any unexpected problems, contact your Primary Care Provider. Call [facility] ([phone]) or report tothe closest Emergency Room. Call 911 if necessary. 01/17/25 0720 Cosigner Signature (if applicable): CC: Dr. Rosendo Brown MD ~ Signed [facility]05-08-2025 Radiology Diagnostic study note [facility] Imaging Services [address] [place], [place] [id number] Chest 1 View (Portable) MR#: [id number] Acct: [id number] Name: SAHARA MELÉNDEZ Rep #: [id number] : 1945 F 79 From: Judie Saucedo MD PCP: Dr. Rosendo Brown MD Status: PRE E R Study:Chest 1 View (Portable) Date of Exam: 01/17/25 Exam# [id number] Ordering Dr: Nevin Flores MD PROCEDURE: CHEST 1 VIEW (PORTABLE) N/A REASON FOR EXAM: DYSPNEA TECHNIQUE: Frontal view of the chest. COMPARISON: Chest x-ray dated 01/16/2025. FINDINGS: The cardiac silhouette is enlarged. Calcified mitral annular ring is present. There is thickening noted within the bilateral pulmonary interstitium. This appears worse since 01/16/2025, indicating pulmonary vascular congestion. No large effusions are present. RAD/Chest 1 View (Portable) IMPRESSION: Worsening pulmonary vascular congestion. Follow-up until clearing is recommended. Reading Location: [id number] CC: Dr. Jacinto Flores MD; Dr. Rosendo Brown MD ~ Grid Inspector: Signed [facility]05-08-2025 Radiology Diagnostic study note [facility] Imaging Services [address] [place] [id number] Chest PA and Lateral MR#: [id number] Acct: [id number] Name: SAHARA MELÉNDEZ Rep #: [id number] : 1945 F 79 From: Riky Jane MD PCP: Dr. Rosendo Brown MD Status: REG C Study:Chest PA and Lateral Date of Exam: 01/16/25 Exam# [id number] Ordering Dr: Yoel San NP PRODUCT REPRESENTATIVE-C PROCEDURE: CHEST PA AND LATERAL 01/16/2025 REASON FOR EXAM: PRE-OPERATIVE: [facility] TECHNIQUE: Frontal and lateral views of the chest. COMPARISON: None available FINDINGS: The lungs appear clear. Mild appearing vascular congestion suggestion. Hyperinflation. No pleural effusion. Cardiac silhouette is enlarged for technique. Atherosclerotic change of the aortic arch. Calcified node/s at the AP window. The visualized osseous structures appear within limits. RAD/Chest PA and Lateral IMPRESSION: No evidence of acute disease. Cardiac silhouette is enlarged for technique. Reading Location: [facility] CC: PRODUCT REPRESENTATIVE-C Antonio San; Dr. Rosendo Brown MD ~ Grid Inspector: Signed [facility]05-07-2025 Evaluation note* Diagnosis Onset Date Resolution Status Admit Date Non-sustained ventricular tachycardia acute January 16, 2025 12 :58pm High cholesterol chronic January 16, 2025 12:58pm Non-rheumatic mitral regurgitation chronic January 16, 2025 12 :58pm Paroxysmal atrial fibrillation chron ic January 16, 2025 12:58pm Dyspnea on exertion resolved January 162024 12:58pm Memory loss acute January 17, 2025 7:16am Nausea acute January 17, 2025 7:16am Paroxysmal atrial fibrillation chron ic January 17, 2025 7:16am Acute respiratory insufficiency reso lved January 17, 2025 7:16am Dyspnea on exertion resolved January 172024 7:16am Pulmonary edema resolved January 17, 2025 7:16am Chronic heart failure with preserved ejection fraction (HFpEF) inactive January 17, 2025 7: 16am Mitral regurgitation inactive January 17, 2025 7:16am Nonrheumatic mitral (valve) prolapse inactive January 17, 2025 7: 16am Non-sustained ventricular tachycardia acute January 21, 2025 1 2:47pm UTI (urinary tract infection) acute January 21, 2025 12:47pm High cholesterol chronic January 12:47pm Non-rheumatic mitral regurgitation chronic January 21, 2025 1 2:47pm Paroxysmal atrial fibrillation chron ic January 21, 2025 12:47pm Dyspnea on exertion resolved January 102024 12:47pm Celiac disease acute January 25, 2025 10:53am Non-sustained ventricular tachycardia acute January 28, 2025 9 :38am High cholesterol chronic January 9:38am Non-rheumatic mitral regurgitation chronic January 28, 2025 9 :38am Paroxysmal atrial fibrillation chron ic January 28, 2025 9:38am Dyspnea on exertion resolved January 102024 9:38am Non-sustained ventricular tachycardia acute February 12, 2025 8 :25am High cholesterol chronic February 8:25am Non-rheumatic mitral regurgitation chronic February 12, 2025 8 :25am Paroxysmal atrial fibrillation chron ic February 12, 2025 8:25am Dyspnea on exertion resolved February 12, 2025 8:25am [facility] Work Phone: [phone] Telephone encounter Note* Telephone Encounter - Shayna Lacey LPN - 01/16/2025 9:09 AM EDT Still isn't feeling well. Will fax over to Dr David. Patient will call them to follow up. Advised to let us know if needs further from this office as she still isn't feeling well. [facility]05-07-2025 Miscellaneous Notes* Telephone Encounter - Shayna Lacey LPN - 01/16/2025 9:09 AM EDT Still isn't feeling well. Will fax over to Dr David. Patient will call them to follow up. Advised to let us know if needs further from this office as she still isn't feeling well. * Telephone Encounter - Rosendo Brown MD - 01/16/2025 8:02 AM EDT Stool studies show white cells that can indicate inflammation or sometimes infection. Rest are ok. Fax to Frankie Arriola. Tell her I would follow with him unless the diarrhea has resolved. [facility] Telephone encounter Note * Telephone Encounter - Rosendo Brown MD - 01/16/2025 8:02 AM EDT Stool studies show white cells that can indicate inflammation or sometimes infection. Rest are ok. Fax to Frankie Arriola. Tell her I would follow with him unless the diarrhea has resolved. [facility]05-05-2025 Telephone encounter Note* Telephone Encounter - Shayna Lacey LPN - 01/14/2025 10:22 AM EDT Patient notified. She is dropping off IFOBT today. [facility]05-05-2025 Miscellaneous Notes* Telephone Encounter - Shayna Lacey LPN - 01/14/2025 10:22 AM EDT Patient notified. She is dropping off IFOBT today. * Telephone Encounter - Rosendo Brown MD - 01/14/2025 8:27 AM EDT Kidney function is ok. Has a mild anemia. Recheck labs in one week including ifobt to recheck and to see if we can see what is causing it. [facility] Telephone encounter Note * Telephone Encounter - Rosendo Brown MD - 01/14/2025 8:27 AM EDT Kidney function is ok. Has a mild anemia. Recheck labs in one week including ifobt to recheck and to see if we can see what is causing it. [facility]05-02-2025 Note* Addendum Note - Rosendo Brown MD - 01/11/2025 2:46 PM EDTAddended by: ROSENDO BROWN on: 01/11/2025 02:46 PM Modules accepted: Orders [facility]05-02-2025 Miscellaneous Notes* Addendum Note - Rosendo Brown MD - 01/11/2025 2:46 PM EDTAddended by: ROSENDO BROWN on: 01/11/2025 02:46 PM Modules accepted: Orders documented in [facility]25 NoteHNO ID: [id number] Author: ROSENDO BROWN MD Service: ? Author Type: Physician Type: Progress Notes Filed: 01/11/2025 14:40 Note Text: Patient presents with: Nausea HPI: Patient presents today for office visit for diarrhea and nausea for over a week. She wanted her heart listened to. Has chronic recurrent diarrhea and sees gi. Complains of no energy. Dr. Tena recently Rx'd Lomotil and Imodium. Not tolerating Lomotil. No fever. No bloody or black stools. No antibiotics recently or travel hx. Still urinating. Has cramping. No focal pain. Some nausea. No vomiting. Immodium helps. No chest pain or shortness of breath. No edema. MEDICATIONS: Current Outpatient Medications Medication Sig atorvastatin (LIPITOR) 40 mg tablet Take 1 tablet by mouth once daily. CPAP/BIPAP/OTHER Type .CPAPSettings into a note to see current settings/supplies/DME information. escitalopram oxalate (LEXAPRO) 10 mg tablet Take 1 tablet by mouth once daily. budesonide, enteric coated (ENTOCORT EC) 3 mg 24 hr capsule Take 9 mg by mouth once daily. Dr. David Cranberry 500 mg cap Take 500 mg by mouth three times daily. ascorbic acid, vitamin C, (VITAMIN C) 500 mg tablet Take 500 mg by mouth once daily. metoprolol tartrate, short acting, (LOPRESSOR) 50 mg tablet Take 50 mg by mouth twice daily. ELIQUIS 5 mg tab(s) Take 5 mg by mouth twice daily. loperamide (IMODIUM) 2 mg cap(s) Take 3 daily, as needed. nitroglycerin sublingual (NITROQUICK) 0.4 mg SL tablet Dissolve 1 tablet under the tongue as needed. for chest pain,every 5 min x3 CAFFEINE ORAL Take 0.5 tablets by mouth once daily. acetaminophen (TYLENOL) 325 mg tablet Take 2 tablets by mouth every 4 hours as needed. FOR PAIN. MULTIVITAMIN TAB Take one(1) tablet daily. colestipol (COLESTID) 1 gram tablet Take 1 tablet by mouth once daily. Dr David (Patient not taking: Reported on 01/11/2025) albuterol HFA (VENTOLIN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 HCl Allergy Hives Verified 01/20/23 11:08 [From Cipro] dicyclomine [From Bentyl] AdvReac Other Verified 01/20/23 11:08 erythromycin base AdvReac Vomiting Verified 01/20/23 11:08 [Erythromycin Base] hydromorphone HCl AdvReac anxiety Verified 01/20/23 11:08 [From Dilaudid] latex AdvReac Rash Verified 01/20/23 11:08 prochlorperazine edisylate AdvReac anxiety Verified 01/20/23 11:08 [From Compazine] prochlorperazine maleate AdvReac anxiety Verified 01/20/23 11:08 [From Compazine] Family History Father CAD (coronary artery disease) Mother CVA (cerebral vascular accident) Diabetes Sister Heart disease Valvular-mitral Grandmother CAD (coronary artery disease) Grandfather CAD (coronary artery disease) Surgical History H/O hysterectomy with unilateral oophorectomy History of appendectomy History of cholecystectomy History of colon surgery History of colonoscopy History of esophagogastroduodenoscopy (EGD) History of left knee replacement History of right knee joint replacement History of surgery on lower extremity History of tonsillectomy Social History Smoking Status: Never smoker alcohol intake: never substance use type: does not use ROS Constitutional Constitutional: Denies anorexia, change in weight, chills, fatigue, fever(s), malaise, night sweats, weakness or other Eyes Eyes: Denies blurry vision, change in eye color, change in vision, discharge from eye(s), double vision, erythema, eye pain, loss of vision or other ENT HEENT: Denies abnormal hearing, dysphagia, ear pain, epistaxis, headache(s), hearing loss, nasal congestion, nasal discharge, post nasal drip, sinus pressure, sore throat or other Cardiovascular Cardiovascular: Denies chest pain, claudication, dyspnea on exertion, edema, lightheadedness, orthopnea, palpitations, paroxysmal nocturnal dyspnea, rapid heart rate, syncope or other Respiratory/Chest Respiratory/Chest: Denies cough, dyspnea, excessive phlegm production, hemoptysis, productive cough, shortness of breath at rest, shortness of breath with exertion, wheezing or other Gastrointestinal Gastrointestinal: Denies abdominal pain, coffee ground emesis, constipation, diarrhea, dyspepsia, hematemesis, hematochezia, loose stools, melena, nausea, vomiting or other Genitourinary Genitourinary: Reports burning urination, dysuria, urinary frequency and urinaryincontinence; Denies difficulty urinating, hematuria, nocturia, urinary hesitancy, urinary urgency or other Musculoskeletal Musculoskeletal: Denies arthralgias, back pain, joint pain, joint stiffness, joint swelling, myalgias, neck pain or other Neurologic Neurologic: Reports focal weakness and other Details: Speech abnormalities ; Denies abnormal gait, abnormal speech, confusion, disequilibrium, dizziness, headache(s), numbness, paresthesias, seizure-like activity, seizures, syncope, tingling or tremor(s) Psychiatric Psychiatric: Denies anxiety, depression, homicidal ideation, suicidal ideation or other Endocrine Endocrinology: Denies change in body appearance, cold intolerance, excessive sweating, heat intolerance, polydipsia, polyuria or other Hematologic/Lymphatic Hematologic/Lymphatic: Denies anemia, easy bleeding, easy bruising, lymphadenopathy or other Allergic/Immunologic Allergic/Immunologic: Denies rhinitis, hives, eczemia, asthma or other Vital Signs Vital Signs Vital Signs: 01/20/23 11:05 01/20/23 13:08 01/20/23 13:09 Temperature 98.8 F 98 F Temperature Source Temporal Temporal Pulse Rate 65 63 62 Respiratory Rate 16 13 14 Blood Pressure 136/61 H 144/57 H 144/67 H Blood Pressure Mean 86 86 92 Pulse Ox 96 96 97 Oxygen Delivery Method Room Air Room Air Room Air Weight Weight: 105.1 kg Body Mass Index (BMI) 41.0 Physical Exam Const alert, oriented x3, no apparent distress, healthy appearing and well nourished Constitutional Narrative: Morbidly obese, elderly white female, appears healthy, sitting up in bed, nontoxic, at bedside General Appearance: cooperative HEENT normocephalic, head/scalp atraumatic, hearing grossly normal bilaterally and moist oral mucous membranes HEENT Narrative: Dental plate in place, Mallampati is 2, no thrush Eyes PERRL, EOMs intact bilaterally and conjunctivae normal Eyes Narrative: No scleral icterus Neck no lymphadenopathy, supple, no JVD and no carotid bruits Neck Narrative: Trachea mid line, no thyroid enlargement, no carotid bruits Resp normal respiratory effort, no retractions, no use of accessory muscles and clearto auscultation bilaterally Auscultation: Negative for rales, rhonchi or wheezes Cardio regular rate, regular rhythm, S1 normal heart sound, S2 normal heart sound, no murmurs, no rub, no gallops and no clicks GI normal to inspection, nondistended, normoactive bowel sounds and soft to palpation Extremity no clubbing, cyanosis or edema Extremity Narrative: 2+ pedal pulses Skin no rashes or lesions noted, no wounds, skin turgor normal, no jaundice, no petechiae and no mottling Neuro oriented x3, CN's II-XII intact bilaterally, moves all extremities and no focal motor deficits Neuro Narrative: Reflexes are 2+, sensation is normal Sensorium / Orientation: awake, alert, oriented to person, oriented to place andoriented to time Speech: speech normal Motor Exam: strength 5/5 throughout Psych affect normal Psych Narrative: Very pleasant, appropriately interactive Results Lab / Micro Data Attestation: I reviewed the patient's lab results. Result Diagrams: 01/20/23 11:35 01/20/23 11:35 Labs: Laboratory Results - last 24 hr 01/20/23 11:35: WBC 6.1, RBC 3.96 L, Hgb 11.9 L, Hct 36.5 L, MCV 92.2, MCH 30.1,MCHC 32.6, RDW Std Deviation 46.4 H, RDW Coeff of Laina 13.6, Plt Count 228, MPV 10.3, Immature Gran % (Auto) 0.300, Neut % (Auto) 63.0, Lymph % (Auto) 21.2, Dewitt % (Auto) 10.2 H, Eos % (Auto) 4.3, Baso % (Auto) 1.0, Absolute Neuts (auto)3.8, Absolute Lymphs (auto) 1.28, Nucleated RBC % 0 01/20/23 11:35: Sodium 141, Potassium 3.9, Chloride 107, Carbon Dioxide 28.0, Anion Gap 6, BUN 15, Creatinine 0.72, Estim Creat Clear Calc 39.59, Est GFR (MDRD) Af Amer 101, Est GFR (MDRD) Non-Af 84, BUN/Creatinine Ratio 20.8 H, Glucose 101, Calcium 9.1, Total Bilirubin 0.60, Direct Bilirubin 0.18, AST 20, ALT 17, Alkaline Phosphatase 63, Total Protein 7.1, Albumin 3.2, Globulin 3.9 01/20/23 11:35: PT 13.6, INR 1.0, APTT 25.9 01/20/23 12:25: Urine Color Yellow, Urine Clarity Sl. Cloudy, Urine pH 7.0, Ur Specific [place] 1.005, Urine Protein 15 H, Urine Glucose (UA) Normal, Urine Ketones Negative, Urine Occult Blood Negative, Urine Nitrite Positive H, Urine Bilirubin 3 H, Urine Urobilinogen 4 H, Ur Leukocyte Esterase 100 H, Urine RBC 0 SEEN, Urine WBC 0-5 SEEN, Ur Squamous Epith Cells 0-5 SEEN, Urine Bacteria RARE,Urine Mucus 0 SEEN Radiology Impression Brain CT 01/20/23 11:18 IMPRESSION: Chronic involutional changes of the brain. Electronically Signed: Miguel Hightower MD at 12:24 EDT , Assessment & Plan Assessment/Plan (1) Dysarthria: (2) Right hand weakness: (3) UTI (urinary tract infection): PLAN: Plan Dysarthria/right hand weakness -We will rule out TIA/stroke -NIH is currently 0 -Continue NIH per stroke protocol -Stroke order set utilized -Start atorvastatin 80 mg daily -Check lipids -Check hemoglobin A1c -Check CTA of the head and neck -Check MRI of the brain -Check echocardiogram -Start aspirin Suspected UTI -UA is suggestive of urinary tract infection with positive leuk esterase/nitrites/white cells and few bacteria -This may be related to her history of interstitial cystitis and chronic inflammation -Culture sent -We will start ceftriaxone and if cultures negative discontinue antibiotics Mitral valve prolapse/mitral regurgitation/ventricular ectopy -Follows with cardiology as an outpatient -Recent echo was stable--> 02/25/2021 EF at 60% with moderate to severe mitral annular calcification and 2+ mitral valve insufficiency, right ventricular systolic pressure was 40 and diastolic dysfunction was present -Continue atenolol GERD -Continue PPI Chronic pain/fibromyalgia Continue acetaminophen as ordered History of interstitial cystitis -Continue home bladder regimen Morbid obesity -BMI is 41.0 -Recommend weight loss -Complicates treatment, prognosis, outcomes DVT prophylaxis -Subcu Lovenox CODE STATUS -Full code as verified on admission Charges/Coding Visit Charges Inpatient E&M: 71571 Init Hosp L2 01/20/23 1416 <Electronically signed by Veronica Louise DO> Cosigner Signature (if applicable): CC: Dr. Veronica Louise DO; Dr. Rosendo Brown MD~ Signed [facility] Work Phone: Hospital Discharge instructions Additional Instructions Implant Used?: [facility] Work Phone: Reason for referral (narrative)* Diagnostic Procedure Only (Urgent) - Authorized Specialty Diagnoses / Procedures Referred By Contstefany t Referred To Contact US IMAGING Diagnoses Anterior leg pain, left Procedures US DVT LOWER LT DUP-SCAN XTR VEINS UNILATERAL/LIMITED STUDY Brock Avelar MD [address] [place] [address] Us Imaging Referral ID Status Reason Start Date Expiration Date Visits Requested Visits Authorized [id number] Authorized Auto-Generat ed Referral 02/08/2022 03/10/2023 1 1 [facility] for referral (narrative)* Diagnostic Procedure Only (Urgent) - Closed Specialty Diagnoses / Procedures Referred By Contac t Referred To Contact US IMAGING Diagnoses Anterior leg pain, left Procedures US DVT LOWER LT DUP-SCAN XTR VEINS UNILATERAL/LIMITED STUDY Brock Avelar MD [address] [place] [address] Us Imaging Referral ID Status Reason Start Date Expiration Date V isits Requested Visits Authorized [id number] Closed Auto-Generate d Referral 02/08/2022 03/10/2023 1 1 [facility] for referral (narrative)* Diagnostic Procedure Only (Routine) - Closed Specialty Diagnoses / Procedures Referred By Contac t Referred To Contact XR IMAGING Diagnoses Foot pain, left Procedures XR FOOT GENERAL 3V AP/LAT/OBL LEFT RADEX FOOT COMPLETE MINIMUM 3 VIEWS Rosendo Brown MD [address] [place] [address] Xr Imaging Referral ID Status Reason Start Date Expiration Date V isits Requested Visits Authorized [id number] Closed Auto-Generate d Referral 04/27/2022 05/27/2023 1 1 [facility] for referral (narrative)* Diagnostic Procedure Only (Routine) - Authorized Specialty Diagnoses / Procedures Referred By Contac t Referred To Contact [facility] Diagnoses TIA (transient ischemic attack) Sleep apnea-like behavior Procedures HOME SLEEP APNEA TEST (HSAT) SLEEP STD AIRFLOW HRT RATE&O2 SAT EFFORT DANGELOTT Rosendo Martinez Jr., MD [address] [facility] [address] [place] [address] Neurological [place] [address] [place] [address] Referral ID Status Reason Start Date Expiration Date Visits Requested Visits Authorized [id number] Authorized Auto-Generat ed Referral 02/25/2023 02/25/2024 1 1 * Transition of Care (Routine) - Ref Not Required Specialty Diagnoses / Procedures Referred By Neno contreras Referred To Contact Neurosurgery Diagnoses TIA (transient ischemic attack) Venous angioma Paroxysmal A-fib (HCC) Elevated LDL cholesterol level Sleep apnea-like behavior Procedures CONSULT TO NEUROSURGERY Rosendo Martinez Jr., MD [address] [address] Referral ID Status Reason Start Date Expiration Date Visits Requested Visits Authorized [id number] Ref Not Required PCP Requested Referral 02/25/2023 05/26/2023 3 3 [facility] for referral (narrative)* Diagnostic Procedure Only (Routine) - Pending Review Specialty Diagnoses / Procedures Referred By Neno contreras Referred To Contact BR IMAGING Diagnoses Screening mammogram for breast cancer Procedures TIFFANIE SCREENING W ADITYA SCREENING DIGITAL BREAST TOMOSYNTHESIS BI SCREENING MAMMOGRAPHY BI 2-VIEW BREAST INC Rosendo Barboza MD [address] [place] [address] [facility] [address] [place] [address] Referral ID Status Reason Start Date Expiration Date Visits Requested Visits Authorized [id number] Pending Review Auto-Generat ed Referral 03/29/2023 04/27/2024 1 1 [facility] for referral (narrative)* Diagnostic Procedure Only (Routine) - New Request Specialty Diagnoses / Procedures Referred By Neno contreras Referred To Contact BR IMAGING Diagnoses Visit for screening mammogram Procedures TIFFANIE SCREENING W ADITYA SCREENING DIGITAL BREAST TOMOSYNTHESIS BI SCREENING MAMMOGRAPHY BI 2-VIEW BREAST INC Rosendo Barboza MD [address] [place] [address] [facility] [address] [place] [address] Referral ID Status Reason Start Date Expiration Date Visits Requested Visits Authorized [id number] New Request Auto-Generat ed Referral 04/30/2024 05/30/2025 1 1 [facility] for referral (narrative)* Diagnostic Procedure Only (Urgent) - Closed Specialty Diagnoses / Procedures Referred By Contac t Referred To Contact XR IMAGING Diagnoses Acute pain of right shoulder Procedures XR SHOULDER GENERAL 3V OR MORE AP/TRUE AP/OTHER RIGHT RADEX SHOULDER COMPLETE MINIMUM 2 VIEWS Mary Alejandro APRN.VECTOR CONTROL ASSISTANT [address] [place] [address] [place] [address] Referral ID Status Reason Start Date Expiration Date V isits Requested Visits Authorized [id number] Closed Auto-Generate d Referral 10/10/2023 11/08/2024 1 1 [facility] for referral (narrative)* Diagnostic Procedure Only (Routine) - Closed Specialty Diagnoses / Procedures Referred By Contac t Referred To Contact XR IMAGING Diagnoses Foot pain, left Procedures XR FOOT GENERAL 3V AP/LAT/OBL LEFT RADEX FOOT COMPLETE MINIMUM 3 VIEWS Rosendo Brown MD [address] [place] [id number] [place] [address] Referral ID Status Reason Start Date Expiration Date V isits Requested Visits Authorized [id number] Closed Auto-Generate d Referral 04/27/2022 05/27/2023 1 1 [facility] for referral (narrative)No reason [facility] Narrative* Diagnostic Procedure Only (Urgent) - Closed Specialty Diagnoses / Procedures Referred By Contac t Referred To Contact XR IMAGING Diagnoses Acute pain of right shoulder Procedures XR CLAVICLE 2V RIGHT RADEX CLAVICLE COMPLETE Mary Alejandro APRN.VECTOR CONTROL ASSISTANT [address] [place] [address] [place] [address] Referral ID Status Reason Start Date Expiration Date V isits Requested Visits Authorized [id number] Closed Auto-Generate d Referral 10/10/2023 11/08/2024 1 1 [facility] for visit Narrative* Diagnostic Procedure Only (Routine) - Closed Specialty Diagnoses / Procedures Referred By Contac t Referred To Contact XR IMAGING Diagnoses Foot pain, left Procedures XR FOOT GENERAL 3V AP/LAT/OBL LEFT RADEX FOOT COMPLETE MINIMUM 3 VIEWS Rosendo Brown MD [address] [place] [address] [place] [address] Referral ID Status Reason Start Date Expiration Date V isits Requested Visits Authorized [id number] Closed Auto-Generate d Referral 04/27/2022 05/27/2023 1 1 [facility] for visit Narrative* MRI/CT (Routine) - Closed Specialty Diagnoses / Procedures Referred By Contac t Referred To Contact MR IMAGING Diagnoses Cognitive impairment, mild, so stated Procedures MRI BRAIN W QUANT WO IVCON MRI BRAIN BRAIN STEM W/O CONTRAST MATERIAL Taylor Thompson MD [address] [place] [address] Phone: tel: fax: [place] [id number] Referral ID Status Reason Start Date Expiration Date V isits Requested Visits Authorized [id number] Closed Auto-Generate d Referral 03/13/2025 05/12/2025 [address] [facility] Summary Purpose Family History No Family History Records Found Relationship Condition Age at Onset Recorded Date/T sam father Coronary artery disease Unknown mother Cerebrovascular accident (CVA) Unknown Diabetes mellitus Unknown sister Cardiac disease Unknown grandmother Coronary artery disease Unknown grandfather Coronary artery disease Unknown Advance Directives No Advanced Directives Records FoundDocuments on File Type Date Recorded Patient Clerical Proofreader Expl anation Advance Directive(s) 11/06/2018 6:50 AM Advance Directive(s) 05/29/2018 2:26 PM Documents on File Type Date Recorded Patient 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 Proofreader 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 Advance Directive(s) 11/06/2018 6:50 AM Advance Directive(s) 05/29/2018 2:26 PM Advance Directive Response Recorded Date/ Time Advance Directives No October 21, 2021 11:40am Living Will No February 19, 2022 12:57pm Power of Data Integration Analyst No February 19 12:57pm Advance Directive Response Recorded Date/ Time Advance Directives No October 21, 2021 11:40am Living Will No January 20, 2023 1 1:08am Power of Data Integration Analyst No January 20, 2023 11:08am Advance Directive Response Recorded Date/ Time Advance Directives No October 21, 2021 11:40am Living Will No January 20, 2023 4 :06pm Power of Data Integration Analyst No January 20, 2023 4:06pm Advance Directive Response Recorded Date/ Time Advance Directives No October 21, 2021 11:40am Living Will No March 18, 2023 8 :23am Power of Data Integration Analyst No March 18, 2023 8:23am Advance Directive Response Recorded Date/ Time Living Will No March 18, 2023 8 :23am Power of Data Integration Analyst No March 18, 2023 8:23am Advance Directives No October 21, 2021 11:40am Advance Directive Response Recorded Date/ Time Living Will No March 18, 2023 8 :23am Do you have a Healthcare Power of Data Integration Analyst? No March 18, 2023 8:23am Do you have a Healthcare Power of Data Integration Analyst? No January 17, 2025 5:20am Advance Directives No October 21, 2021 11:40am Advance Directive Response Recorded Date/ Time Living Will No March 18, 2023 8 :23am Do you have a Healthcare Power of Data Integration Analyst? No March 18, 2023 8:23am Do you have a Healthcare Power of Data Integration Analyst? No January 17, 2025 10:14am Advance Directives No October 21, 2021 11:40am Advance Directive Response Recorded Date/ Time Do you have a Healthcare Power of Data Integration Analyst? No January 17, 2025 10:14am Living Will No March 13, 2025 1 0:43am Do you have a Healthcare Power of Data Integration Analyst? No March 13, 2025 10:43am Advance Directives No March 13 10:43am Chief Complaint and Reason for Visit Chief Complaint EST CARE WANTS UPPER AND LOWER SCOPE INT LABS Reason for Visit Diarrhea Chief Complaint EST CARE WANTS UPPER AND LOWER SCOPE INT LABS 2 WK FU SCREENING Reason for Visit Celiac disease Chief Complaint 2 WK FU SCREENING 1 y fu MITRAL VALVE PROLAPSE Reason for Visit Celiac disease Non-rheumatic mitral regurgitation Nonrheumatic mitral (valve) prolapse Ventricular ectopy Chief Complaint TIA TIA (cardiology) Reason for Visit Dysarthria Right hand weakness UTI (urinary tract infection) Chief Complaint TIA TIA (cardiology) TIA (cardiology) TIA UPDATED H&P PER [facility] Documentation Reason for Visit UTI (urinary tract i nfection) Dysarthria Right hand weakness Hypersomnolence Non-sustained ventricular tachycardia Paroxysmal atrial fibrillation Non-rheumatic mitral regurgitation Chief Complaint TIA TIA (cardiology) TIA (cardiology) TIA UPDATED H&P PER [facility] Amb Documentation Urinary tract infection, site not specified Reason for Visit UTI (urinary tract i nfection) Dysarthria Right hand weakness Hypersomnolence Non-sustained ventricular tachycardia Paroxysmal atrial fibrillation Non-rheumatic mitral regurgitation Chief Complaint TIA TIA (cardiology) TIA (cardiology) TIA UPDATED H&P PER [facility] Amb Documentation Urinary tract infection, site not specified urethral dilatation, cystoscopy Reason for Visit UTI (urinary tract i nfection) Dysarthria Right hand weakness Hypersomnolence Non-sustained ventricular tachycardia Paroxysmal atrial fibrillation Non-rheumatic mitral regurgitation Chief Complaint TIA TIA (cardiology) TIA (cardiology) TIA UPDATED H&P PER [email or web address] Amb Documentation Urinary tract infection, site not specified urethral dilatation, cystoscopy SCREENING Reason for Visit UTI (urinary tract i nfection) Dysarthria Right hand weakness Hypersomnolence Non-sustained ventricular tachycardia Paroxysmal atrial fibrillation Non-rheumatic mitral regurgitation Chief Complaint FU Reason for Visit Celiac disease Chief Complaint FU E-ORDER Reason for Visit Celiac disease Chief Complaint FU E-ORDER CIRRHOSIS Reason for Visit Celiac disease Chief Complaint Admit Date 6 M FU July 26, 2024 10:44am E-ORDER July 26, 2024 12:01pm Dyspnea, unspecified August 20, 2024 12:33pm 6 M FU November 09, 2024 9:52am Reason for Visit Admit Date Dyspnea on exertion July 26, 2024 10:44am High cholesterol July 26, 2024 10:44am Non-sustained ventricular tachycardia No vember 2023 10:44am Paroxysmal atrial fibrillation July 26, 2024 10:44am Non-rheumatic mitral regurgitation Novem 2023 10:44am Celiac disease November 09, 2024 9:52am Chief Complaint Admit Date 6 M FU November 09, 2024 9:52am 6 M FU January 16, 2025 12:58p m E-ORDER January 16, 2025 2:27pm AFIB WITH RVR January 17, 2025 7:16am sob January 17, 2025 7:43am Reason for Visit Admit Date Celiac disease November 09, 2024 9:52am Dyspnea on exertion January 16, 2025 12:58p m Non-sustained ventricular tachycardia Ma y 2024 12:58pm Paroxysmal atrial fibrillation January 16, 2025 12:58pm High cholesterol January 16, 2025 12:58p m Non-rheumatic mitral regurgitation January 162024 12:58pm Acute respiratory insufficiency January 17, 2025 7:16am Dyspnea on exertion January 17, 2025 7:16am Paroxysmal atrial fibrillation January 17, 2025 7:16am Pulmonary edema January 17, 2025 7:16am Nonrheumatic mitral (valve) prolapse January 17, 2025 7:16am Chief Complaint Admit Date 6 M FU November 09, 2024 9:52am 6 M FU January 16, 2025 12:58p m E-ORDER January 16, 2025 2:27pm AFIB WITH RVR January 17, 2025 7:16am sob January 17, 2025 7:43am AFIB WITH RVR January 18, 2025 12:35p m AFIB WITH RVR January 18, 2025 1:39pm Reason for Visit Admit Date Celiac disease November 09, 2024 9:52am Dyspnea on exertion January 16, 2025 12:58p m Non-sustained ventricular tachycardia Ma y 2024 12:58pm Paroxysmal atrial fibrillation January 16, 2025 12:58pm High cholesterol January 16, 2025 12:58p m Non-rheumatic mitral regurgitation January 162024 12:58pm Acute respiratory insufficiency January 17, 2025 7:16am Chronic heart failure with p reserved ejection fraction (HFpEF) January 17, 2025 7:16am Dyspnea on exertion January 17, 2025 7:16am Memory loss January 17, 2025 7:16am Mitral regurgitation January 17, 2025 7:16a m Nausea January 17, 2025 7:16am Paroxysmal atrial fibrillation January 17, 2025 7:16am Pulmonary edema January 17, 2025 7:16am Nonrheumatic mitral (valve) prolapse January 17, 2025 7:16am Chief Complaint Admit Date 6 M FU November 09, 2024 9:52am 6 M FU January 16, 2025 12:58p m E-ORDER January 16, 2025 2:27pm AFIB WITH RVR January 17, 2025 7:16am sob January 17, 2025 7:43am AFIB WITH RVR January 18, 2025 12:35p m AFIB WITH RVR January 18, 2025 1:39pm AFIB WITH RVR January 19, 2025 11:15 am S/P (01/19/25) January 21, 2025 12:47 pm Reason for Visit Admit Date Celiac disease November 09, 2024 9:52am Dyspnea on exertion January 16, 2025 12:58p m Non-sustained ventricular tachycardia Ma y 2024 12:58pm Paroxysmal atrial fibrillation January 16, 2025 12:58pm High cholesterol January 16, 2025 12:58p m Non-rheumatic mitral regurgitation January 162024 12:58pm Acute respiratory insufficiency January 17, 2025 7:16am Chronic heart failure with p reserved ejection fraction (HFpEF) January 17, 2025 7:16am Dyspnea on exertion January 17, 2025 7:16am Memory loss January 17, 2025 7:16am Mitral regurgitation January 17, 2025 7:16a m Nausea January 17, 2025 7:16am Paroxysmal atrial fibrillation January 17, 2025 7:16am Pulmonary edema January 17, 2025 7:16am Nonrheumatic mitral (valve) prolapse January 17, 2025 7:16am Dyspnea on exertion January 21, 2025 12:47 pm Non-sustained ventricular tachycardia Ma y 2024 12:47pm Paroxysmal atrial fibrillation January 21, 2025 12:47pm UTI (urinary tract infection) January 21, 2025 12:47pm High cholesterol January 21, 2025 12:47 pm Non-rheumatic mitral regurgitation January 102024 12:47pm Chief Complaint Admit Date 6 M FU November 09, 2024 9:52am 6 M FU January 16, 2025 12:58p m E-ORDER January 16, 2025 2:27pm AFIB WITH RVR January 17, 2025 7:16am sob January 17, 2025 7:43am AFIB WITH RVR January 18, 2025 12:35p m AFIB WITH RVR January 18, 2025 1:39pm AM EKG January 19, 2025 5:35a m AFIB WITH RVR January 19, 2025 11:15 am S/P (01/19/25) January 21, 2025 12:47 pm 3 M FU January 25, 2025 10:53 am Reason for Visit Admit Date Celiac disease November 09, 2024 9:52am Non-sustained ventricular tachycardia Ma y 2024 12:58pm High cholesterol January 16, 2025 12:58p m Non-rheumatic mitral regurgitation January 162024 12:58pm Dyspnea on exertion January 16, 2025 12:58p m Paroxysmal atrial fibrillation January 16, 2025 12:58pm Memory loss January 17, 2025 7:16am Nausea January 17, 2025 7:16am Acute respiratory insufficiency January 17, 2025 7:16am Dyspnea on exertion January 17, 2025 7:16am Pulmonary edema January 17, 2025 7:16am Chronic heart failure with p reserved ejection fraction (HFpEF) January 17, 2025 7:16am Mitral regurgitation January 17, 2025 7:16a m Nonrheumatic mitral (valve) prolapse January 17, 2025 7:16am Paroxysmal atrial fibrillation January 17, 2025 7:16am Non-sustained ventricular tachycardia Ma y 2024 12:47pm UTI (urinary tract infection) January 21, 2025 12:47pm High cholesterol January 21, 2025 12:47 pm Non-rheumatic mitral regurgitation January 102024 12:47pm Dyspnea on exertion January 21, 2025 12:47 pm Paroxysmal atrial fibrillation January 21, 2025 12:47pm Chief Complaint Admit Date 6 M FU November 09, 2024 9:52am 6 M FU January 16, 2025 12:58p m E-ORDER January 16, 2025 2:27pm AFIB WITH RVR January 17, 2025 7:16am sob January 17, 2025 7:43am AFIB WITH RVR January 18, 2025 12:35p m AFIB WITH RVR January 18, 2025 1:39pm AM EKG January 19, 2025 5:35a m AFIB WITH RVR January 19, 2025 11:15 am S/P (01/19/25) January 21, 2025 12:47 pm 3 M FU January 25, 2025 10:53 am 1 W FU January 28, 2025 9:38a m Reason for Visit Admit Date Celiac disease November 09, 2024 9:52am Non-sustained ventricular tachycardia Ma y 2024 12:58pm High cholesterol January 16, 2025 12:58p m Non-rheumatic mitral regurgitation January 162024 12:58pm Paroxysmal atrial fibrillation January 16, 2025 12:58pm Dyspnea on exertion January 16, 2025 12:58p m Memory loss January 17, 2025 7:16am Nausea January 17, 2025 7:16am Paroxysmal atrial fibrillation January 17, 2025 7:16am Acute respiratory insufficiency January 17, 2025 7:16am Dyspnea on exertion January 17, 2025 7:16am Pulmonary edema January 17, 2025 7:16am Chronic heart failure with p reserved ejection fraction (HFpEF) January 17, 2025 7:16am Mitral regurgitation January 17, 2025 7:16a m Nonrheumatic mitral (valve) prolapse January 17, 2025 7:16am Non-sustained ventricular tachycardia Ma y 2024 12:47pm UTI (urinary tract infection) January 21, 2025 12:47pm High cholesterol January 21, 2025 12:47 pm Non-rheumatic mitral regurgitation January 102024 12:47pm Paroxysmal atrial fibrillation January 21, 2025 12:47pm Dyspnea on exertion January 21, 2025 12:47 pm Celiac disease January 25, 2025 10:53 am Non-sustained ventricular tachycardia Ma y 2024 9:38am High cholesterol January 28, 2025 9:38a m Non-rheumatic mitral regurgitation January 102024 9:38am Paroxysmal atrial fibrillation January 28, 2025 9:38am Dyspnea on exertion January 28, 2025 9:38a m Chief Complaint Admit Date 6 M FU November 09, 2024 9:52am 6 M FU January 16, 2025 12:58p m E-ORDER January 16, 2025 2:27pm AFIB WITH RVR January 17, 2025 7:16am sob January 17, 2025 7:43am AFIB WITH RVR January 18, 2025 12:35p m AFIB WITH RVR January 18, 2025 1:39pm AM EKG January 19, 2025 5:35a m AFIB WITH RVR January 19, 2025 11:15 am S/P (01/19/25) January 21, 2025 12:47 pm 3 M FU January 25, 2025 10:53 am 1 W FU January 28, 2025 9:38a m INT LAB ORDERS February 05, 2025 2:51p m Chief Complaint Admit Date 6 M FU November 09, 2024 9:52am 6 M FU January 16, 2025 12:58p m E-ORDER January 16, 2025 2:27pm AFIB WITH RVR January 17, 2025 7:16am sob January 17, 2025 7:43am AFIB WITH RVR January 18, 2025 12:35p m AFIB WITH RVR January 18, 2025 1:39pm AM EKG January 19, 2025 5:35a m AFIB WITH RVR January 19, 2025 11:15 am S/P (01/19/25) January 21, 2025 12:47 pm 3 M FU January 25, 2025 10:53 am 1 W FU January 28, 2025 9:38a m INT LAB ORDERS February 05, 2025 2:51p m 1 M FU February 12, 2025 8:25a m Reason for Visit Admit Date Celiac disease November 09, 2024 9:52am Non-sustained ventricular tachycardia Ma y 2024 12:58pm High cholesterol January 16, 2025 12:58p m Non-rheumatic mitral regurgitation January 162024 12:58pm Paroxysmal atrial fibrillation January 16, 2025 12:58pm Dyspnea on exertion January 16, 2025 12:58p m Memory loss January 17, 2025 7:16am Nausea January 17, 2025 7:16am Paroxysmal atrial fibrillation January 17, 2025 7:16am Acute respiratory insufficiency January 17, 2025 7:16am Dyspnea on exertion January 17, 2025 7:16am Pulmonary edema January 17, 2025 7:16am Chronic heart failure with p reserved ejection fraction (HFpEF) January 17, 2025 7:16am Mitral regurgitation January 17, 2025 7:16a m Nonrheumatic mitral (valve) prolapse January 17, 2025 7:16am Non-sustained ventricular tachycardia Ma y 2024 12:47pm UTI (urinary tract infection) January 21, 2025 12:47pm High cholesterol January 21, 2025 12:47 pm Non-rheumatic mitral regurgitation January 102024 12:47pm Paroxysmal atrial fibrillation January 21, 2025 12:47pm Dyspnea on exertion January 21, 2025 12:47 pm Celiac disease January 25, 2025 10:53 am Non-sustained ventricular tachycardia Ma y 2024 9:38am High cholesterol January 28, 2025 9:38a m Non-rheumatic mitral regurgitation January 102024 9:38am Paroxysmal atrial fibrillation January 28, 2025 9:38am Dyspnea on exertion January 28, 2025 9:38a m Non-sustained ventricular tachycardia Ju 2024 8:25am High cholesterol February 12, 2025 8:25a m Non-rheumatic mitral regurgitation February 12, 2025 8:25am Paroxysmal atrial fibrillation February 12, 2025 8:25am Dyspnea on exertion February 12, 2025 8:25a m Chief Complaint Admit Date 6 M FU November 09, 2024 9:52am 6 M FU January 16, 2025 12:58p m E-ORDER January 16, 2025 2:27pm AFIB WITH RVR January 17, 2025 7:16am sob January 17, 2025 7:43am AFIB WITH RVR January 18, 2025 12:35p m AFIB WITH RVR January 18, 2025 1:39pm AM EKG January 19, 2025 5:35a m AFIB WITH RVR January 19, 2025 11:15 am S/P (01/19/25) January 21, 2025 12:47 pm 3 M FU January 25, 2025 10:53 am 1 W FU January 28, 2025 9:38a m INT LAB ORDERS February 05, 2025 2:51p m 1 M FU February 12, 2025 8:25a m NONRHEUMATIC MITRAL VALVE INSUFFICIENCY February 18, 2025 9:41am Chief Complaint Admit Date 6 M FU January 16, 2025 12:58p m E-ORDER January 16, 2025 2:27pm AFIB WITH RVR January 17, 2025 7:16am sob January 17, 2025 7:43am AFIB WITH RVR January 18, 2025 12:35p m AFIB WITH RVR January 18, 2025 1:39pm AM EKG January 19, 2025 5:35a m AFIB WITH RVR January 19, 2025 11:15 am S/P (01/19/25) January 21, 2025 12:47 pm 3 M FU January 25, 2025 10:53 am 1 W FU January 28, 2025 9:38a m INT LAB ORDERS February 05, 2025 2:51p m 1 M FU February 12, 2025 8:25a m NONRHEUMATIC MITRAL VALVE INSUFFICIENCY February 18, 2025 9:41am Nonrheumatic mitral (valve) insufficienc y March 13, 2025 10:14am Reason for Visit Admit Date Non-sustained ventricular tachycardia Ma y 2024 12:58pm High cholesterol January 16, 2025 12:58p m Non-rheumatic mitral regurgitation January 162024 12:58pm Paroxysmal atrial fibrillation January 16, 2025 12:58pm Dyspnea on exertion January 16, 2025 12:58p m Memory loss January 17, 2025 7:16am Nausea January 17, 2025 7:16am Paroxysmal atrial fibrillation January 17, 2025 7:16am Acute respiratory insufficiency January 17, 2025 7:16am Dyspnea on exertion January 17, 2025 7:16am Pulmonary edema January 17, 2025 7:16am Chronic heart failure with preserved eje ction fraction (HFpEF) January 17, 2025 7:16am Mitral regurgitation January 17, 2025 7:16a m Nonrheumatic mitral (valve) prolapse January 17, 2025 7:16am Non-sustained ventricular tachycardia Ma y 2024 12:47pm UTI (urinary tract infection) January 21, 2025 12:47pm High cholesterol January 21, 2025 12:47 pm Non-rheumatic mitral regurgitation January 102024 12:47pm Paroxysmal atrial fibrillation January 21, 2025 12:47pm Dyspnea on exertion January 21, 2025 12:47 pm Celiac disease January 25, 2025 10:53 am Non-sustained ventricular tachycardia Ma y 2024 9:38am High cholesterol January 28, 2025 9:38a m Non-rheumatic mitral regurgitation January 102024 9:38am Paroxysmal atrial fibrillation January 28, 2025 9:38am Dyspnea on exertion January 28, 2025 9:38a m Non-sustained ventricular tachycardia Ju ne 2024 8:25am High cholesterol February 12, 2025 8:25a m Non-rheumatic mitral regurgitation February 12, 2025 8:25am Paroxysmal atrial fibrillation February 12, 2025 8:25am Dyspnea on exertion February 12, 2025 8:25a m Chief Complaint Admit Date 6 M FU January 16, 2025 12:58p m E-ORDER January 16, 2025 2:27pm AFIB WITH RVR January 17, 2025 7:16am sob January 17, 2025 7:43am AFIB WITH RVR January 18, 2025 12:35p m AFIB WITH RVR January 18, 2025 1:39pm AM EKG January 19, 2025 5:35a m AFIB WITH RVR January 19, 2025 11:15 am S/P (01/19/25) January 21, 2025 12:47 pm 3 M FU January 25, 2025 10:53 am 1 W FU January 28, 2025 9:38a m INT LAB ORDERS February 05, 2025 2:51p m 1 M FU February 12, 2025 8:25a m NONRHEUMATIC MITRAL VALVE INSUFFICIENCY February 18, 2025 9:41am Nonrheumatic mitral (valve) insufficienc y March 13, 2025 10:14am BLOOD IN STOOL April 01, 2025 7:41 am Reason for Referral Specialty Diagnoses / Procedures Referred By Neno contreras Referred To Contact [facility] Diagnoses Cystocele, midline Procedures CONSULT TO PHYSICAL THERAPY PHYSICAL THERAPY EVALUATION HIGH COMPLEX 45 MINS Mehnaz Eduardo APRN.VECTOR CONTROL ASSISTANT [address] [place] [address] [facility] [address] [address] Referral ID Status Reason Start Date Expiration Date Visits Requested Visits Authorized [id number] Pending Review Auto-Generat ed Referral 01/19/2023 01/19/2024 1 1 Specialty Diagnoses / Procedures Referred By Neno contreras Referred To Contact Diagnoses Cystocele, midline Recurrent UTI Procedures CONSULT TO URO GYNECOLOGY OFFICE/OUTPATIENT NEW HIGH MDM 60-74 MINUTES Mehnaz Eduardo APRN.VECTOR CONTROL ASSISTANT [address] [place] [address] Referral ID Status Reason Start Date Expiration Date Visits Requested Visits Authorized [id number] Authorized PCP Requested Referral Auto-Generate d Referral 01/20/2023 01/20/2024 1 1 Specialty Diagnoses / Procedures Referred By Contac t Referred To Contact Neurology Diagnoses TIA (transient ischemic attack) Procedures CONSULT TO NEUROLOGY OFFICE/OUTPATIENT [facility] 60-74 MINUTES Mary Alejandro APRN.CNP [address] [place] [address] Referral ID Status Reason Start Date Expiration Date Visits Requested Visits Authorized [id number] Authorized PCP Requested Referral 01/25/2023 01/25/2024 1 1 Specialty Diagnoses / Procedures Referred By Contac t Referred To Contact Velvet Patel PA-C [address] [place] [address] Referral ID Status Reason Start Date Expiration Date V isits Requested Visits Authorized [id number] Pending Review 1 1 Specialty Diagnoses / Procedures Referred By Contac t Referred To Contact Diagnoses SARAH (obstructive sleep apnea) Procedures CONSULT TO SLEEP MEDICINE - ADULT OFFICE/OUTPATIENT [facility] 60 MINUTES Velvet Patel PA-C [address] [place] [address] Referral ID Status Reason Start Date Expiration Date Visits Requested Visits Authorized [id number] Authorized PCP Requested Referral 11/24/2023 11/23/2024 1 1 Specialty Diagnoses / Procedures Referred By Contac t Referred To Contact Gerontology Diagnoses Memory impairment Procedures CONSULT TO GERIATRICS OFFICE/OUTPATIENT [facility] 60 MINUTES Rosendo Brown MD [address] [place] [address] Referral ID Status Reason Start Date Expiration Date Visits Requested Visits Authorized [id number] Authorized PCP Requested Referral 10/02/2024 10/02/2025 1 1 Additional Source Comments INFORMATION SOURCE (unrecogn ized section and content) DATE CREATED AUTHOR 03/02/2018 Parul Quiñonez [facility] DATE CREATED AUTHOR AUTHOR'S ORGANIZ ATION 03/07/2018 Parul [facility] DATE CREATED AUTHOR AUTHOR'S ORGANIZ ATION 04/01/2023 [facility] DATE CREATED AUTHOR AUTHOR'S ORGANIZ ATION 11/26/2023 [facility] DATE CREATED AUTHOR AUTHOR'S ORGANIZ ATION 04/01/2025 [facility] DATE CREATED AUTHOR AUTHOR'S ORGANIZ ATION 04/03/2025 [facility] DATE CREATED AUTHOR AUTHOR'S ORGANIZ ATION 04/17/2025 [facility] Source Comments (unrecognize d section and content) In the event this informatio n is protected by the Federal Confidentiality of Alcohol and Drug Abuse Patient Records regulations: The Federal rules restrict any use of the information to criminally investigate or prosecute any alcohol or drug abuse patient.[facility] the event this information is protected by the Federal Confidentiality of Alcohol and Drug Abuse Patient Records regulations: The Federal rules restrict any use of the information to criminally investigate or prosecute any alcohol or drug abuse patient.[facility] Hospital[facility] the event this information is protected by the Federal Confidentiality of Alcohol and Drug Abuse Patient Records regulations: The Federal rules restrict any use of the information to criminally investigate or prosecute any alcohol or drug abuse patient.[facility] Hospital[facility] the event this information is protected by the Federal Confidentiality of Alcohol and Drug Abuse Patient Records regulations: The Federal rules restrict any use of the information to criminally investigate or prosecute any alcohol or drug abuse patient.[facility] HospitalIn the event this information is protected by the Federal Confidentiality of Alcohol and Drug Abuse Patient Records regulations: The Federal rules restrict any use of the information to criminally investigate or prosecute any alcohol or drug abuse patient.[facility] HospitalIn the event this information is protected by the Federal Confidentiality of Alcohol and Drug Abuse Patient Records regulations: The Federal rules restrict any use of the information to criminally investigate or prosecute any alcohol or drug abuse patient.[facility] Hospital[facility] the event this information is protected by the Federal Confidentiality of Alcohol and Drug Abuse Patient Records regulations: The Federal rules restrict any use of the information to criminally investigate or prosecute any alcohol or drug abuse patient.[facility] HospitalIn the event this information is protected by the Federal Confidentiality of Alcohol and Drug Abuse Patient Records regulations: The Federal rules restrict any use of the information to criminally investigate or prosecute any alcohol or drug abuse patient.[facility] HospitalIn the event this information is protected by the Federal Confidentiality of Alcohol and Drug Abuse Patient Records regulations: The Federal rules restrict any use of the information to criminally investigate or prosecute any alcohol or drug abuse patient.[facility] HospitalIn the event this information is protected by the Federal Confidentiality of Alcohol and Drug Abuse Patient Records regulations: The Federal rules restrict any use of the information to criminally investigate or prosecute any alcohol or drug abuse patient.[facility] HospitalIn the event this information is protected by the Federal Confidentiality of Alcohol and Drug Abuse Patient Records regulations: The Federal rules restrict any use of the information to criminally investigate or prosecute any alcohol or drug abuse patient.[facility] HospitalIn the event this information is protected by the Federal Confidentiality of Alcohol and Drug Abuse Patient Records regulations: The Federal rules restrict any use of the information to criminally investigate or prosecute any alcohol or drug abuse patient.[facility] HospitalIn the event this information is protected by the Federal Confidentiality of Alcohol and Drug Abuse Patient Records regulations: The Federal rules restrict any use of the information to criminally investigate or prosecute any alcohol or drug abuse patient.[facility] HospitalIn the event this information is protected by the Federal Confidentiality of Alcohol and Drug Abuse Patient Records regulations: The Federal rules restrict any use of the information to criminally investigate or prosecute any alcohol or drug abuse patient.[facility] HospitalIn the event this information is protected by the Federal Confidentiality of Alcohol and Drug Abuse Patient Records regulations: The Federal rules restrict any use of the information to criminally investigate or prosecute any alcohol or drug abuse patient.[facility] HospitalIn the event this information is protected by the Federal Confidentiality of Alcohol and Drug Abuse Patient Records regulations: The Federal rules restrict any use of the information to criminally investigate or prosecute any alcohol or drug abuse patient.[facility] HospitalIn the event this information is protected by the Federal Confidentiality of Alcohol and Drug Abuse Patient Records regulations: The Federal rules restrict any use of the information to criminally investigate or prosecute any alcohol or drug abuse patient.[facility] HospitalIn the event this information is protected by the Federal Confidentiality of Alcohol and Drug Abuse Patient Records regulations: The Federal rules restrict any use of the information to criminally investigate or prosecute any alcohol or drug abuse patient.[facility] HospitalIn the event this information is protected by the Federal Confidentiality of Alcohol and Drug Abuse Patient Records regulations: The Federal rules restrict any use of the information to criminally investigate or prosecute any alcohol or drug abuse patient.[facility] HospitalIn the event this information is protected by the Federal Confidentiality of Alcohol and Drug Abuse Patient Records regulations: The Federal rules restrict any use of the information to criminally investigate or prosecute any alcohol or drug abuse patient.[facility] HospitalIn the event this information is protected by the Federal Confidentiality of Alcohol and Drug Abuse Patient Records regulations: The Federal rules restrict any use of the information to criminally investigate or prosecute any alcohol or drug abuse patient.[facility] HospitalIn the event this information is protected by the Federal Confidentiality of Alcohol and Drug Abuse Patient Records regulations: The Federal rules restrict any use of the information to criminally investigate or prosecute any alcohol or drug abuse patient.[facility] HospitalIn the event this information is protected by the Federal Confidentiality of Alcohol and Drug Abuse Patient Records regulations: The Federal rules restrict any use of the information to criminally investigate or prosecute any alcohol or drug abuse patient.[facility] HospitalIn the event this information is protected by the Federal Confidentiality of Alcohol and Drug Abuse Patient Records regulations: The Federal rules restrict any use of the information to criminally investigate or prosecute any alcohol or drug abuse patient.[facility] HospitalIn the event this information is protected by the Federal Confidentiality of Alcohol and Drug Abuse Patient Records regulations: The Federal rules restrict any use of the information to criminally investigate or prosecute any alcohol or drug abuse patient.[facility] HospitalIn the event this information is protected by the Federal Confidentiality of Alcohol and Drug Abuse Patient Records regulations: The Federal rules restrict any use of the information to criminally investigate or prosecute any alcohol or drug abuse patient.[facility] HospitalIn the event this information is protected by the Federal Confidentiality of Alcohol and Drug Abuse Patient Records regulations: The Federal rules restrict any use of the information to criminally investigate or prosecute any alcohol or drug abuse patient.[facility] HospitalIn the event this information is protected by the Federal Confidentiality of Alcohol and Drug Abuse Patient Records regulations: The Federal rules restrict any use of the information to criminally investigate or prosecute any alcohol or drug abuse patient.[facility] HospitalIn the event this information is protected by the Federal Confidentiality of Alcohol and Drug Abuse Patient Records regulations: The Federal rules restrict any use of the information to criminally investigate or prosecute any alcohol or drug abuse patient.[facility] HospitalIn the event this information is protected by the Federal Confidentiality of Alcohol and Drug Abuse Patient Records regulations: The Federal rules restrict any use of the information to criminally investigate or prosecute any alcohol or drug abuse patient.[facility] HospitalIn the event this information is protected by the Federal Confidentiality of Alcohol and Drug Abuse Patient Records regulations: The Federal rules restrict any use of the information to criminally investigate or prosecute any alcohol or drug abuse patient.[facility] HospitalIn the event this information is protected by the Federal Confidentiality of Alcohol and Drug Abuse Patient Records regulations: The Federal rules restrict any use of the information to criminally investigate or prosecute any alcohol or drug abuse patient.[facility] HospitalIn the event this information is protected by the Federal Confidentiality of Alcohol and Drug Abuse Patient Records regulations: The Federal rules restrict any use of the information to criminally investigate or prosecute any alcohol or drug abuse patient.[facility] HospitalIn the event this information is protected by the Federal Confidentiality of Alcohol and Drug Abuse Patient Records regulations: The Federal rules restrict any use of the information to criminally investigate or prosecute any alcohol or drug abuse patient.[facility] HospitalIn the event this information is protected by the Federal Confidentiality of Alcohol and Drug Abuse Patient Records regulations: The Federal rules restrict any use of the information to criminally investigate or prosecute any alcohol or drug abuse patient.[facility] HospitalIn the event this information is protected by the Federal Confidentiality of Alcohol and Drug Abuse Patient Records regulations: The Federal rules restrict any use of the information to criminally investigate or prosecute any alcohol or drug abuse patient.[facility] HospitalIn the event this information is protected by the Federal Confidentiality of Alcohol and Drug Abuse Patient Records regulations: The Federal rules restrict any use of the information to criminally investigate or prosecute any alcohol or drug abuse patient.[facility] HospitalIn the event this information is protected by the Federal Confidentiality of Alcohol and Drug Abuse Patient Records regulations: The Federal rules restrict any use of the information to criminally investigate or prosecute any alcohol or drug abuse patient.[facility] HospitalIn the event this information is protected by the Federal Confidentiality of Alcohol and Drug Abuse Patient Records regulations: The Federal rules restrict any use of the information to criminally investigate or prosecute any alcohol or drug abuse patient.[facility] HospitalIn the event this information is protected by the Federal Confidentiality of Alcohol and Drug Abuse Patient Records regulations: The Federal rules restrict any use of the information to criminally investigate or prosecute any alcohol or drug abuse patient.[facility] HospitalIn the event this information is protected by the Federal Confidentiality of Alcohol and Drug Abuse Patient Records regulations: The Federal rules restrict any use of the information to criminally investigate or prosecute any alcohol or drug abuse patient.[facility] HospitalIn the event this information is protected by the Federal Confidentiality of Alcohol and Drug Abuse Patient Records regulations: The Federal rules restrict any use of the information to criminally investigate or prosecute any alcohol or drug abuse patient.[facility] HospitalIn the event this information is protected by the Federal Confidentiality of Alcohol and Drug Abuse Patient Records regulations: The Federal rules restrict any use of the information to criminally investigate or prosecute any alcohol or drug abuse patient.[facility] HospitalIn the event this information is protected by the Federal Confidentiality of Alcohol and Drug Abuse Patient Records regulations: The Federal rules restrict any use of the information to criminally investigate or prosecute any alcohol or drug abuse patient.[facility] HospitalIn the event this information is protected by the Federal Confidentiality of Alcohol and Drug Abuse Patient Records regulations: The Federal rules restrict any use of the information to criminally investigate or prosecute any alcohol or drug abuse patient.[facility] HospitalIn the event this information is protected by the Federal Confidentiality of Alcohol and Drug Abuse Patient Records regulations: The Federal rules restrict any use of the information to criminally investigate or prosecute any alcohol or drug abuse patient.[facility] HospitalIn the event this information is protected by the Federal Confidentiality of Alcohol and Drug Abuse Patient Records regulations: The Federal rules restrict any use of the information to criminally investigate or prosecute any alcohol or drug abuse patient.[facility] HospitalIn the event this information is protected by the Federal Confidentiality of Alcohol and Drug Abuse Patient Records regulations: The Federal rules restrict any use of the information to criminally investigate or prosecute any alcohol or drug abuse patient.[facility] HospitalIn the event this information is protected by the Federal Confidentiality of Alcohol and Drug Abuse Patient Records regulations: The Federal rules restrict any use of the information to criminally investigate or prosecute any alcohol or drug abuse patient.[facility] HospitalIn the event this information is protected by the Federal Confidentiality of Alcohol and Drug Abuse Patient Records regulations: The Federal rules restrict any use of the information to criminally investigate or prosecute any alcohol or drug abuse patient.[facility] HospitalIn the event this information is protected by the Federal Confidentiality of Alcohol and Drug Abuse Patient Records regulations: The Federal rules restrict any use of the information to criminally investigate or prosecute any alcohol or drug abuse patient.[facility] HospitalIn the event this information is protected by the Federal Confidentiality of Alcohol and Drug Abuse Patient Records regulations: The Federal rules restrict any use of the information to criminally investigate or prosecute any alcohol or drug abuse patient.[facility] HospitalIn the event this information is protected by the Federal Confidentiality of Alcohol and Drug Abuse Patient Records regulations: The Federal rules restrict any use of the information to criminally investigate or prosecute any alcohol or drug abuse patient.[facility] HospitalIn the event this information is protected by the Federal Confidentiality of Alcohol and Drug Abuse Patient Records regulations: The Federal rules restrict any use of the information to criminally investigate or prosecute any alcohol or drug abuse patient.[facility] HospitalIn the event this information is protected by the Federal Confidentiality of Alcohol and Drug Abuse Patient Records regulations: The Federal rules restrict any use of the information to criminally investigate or prosecute any alcohol or drug abuse patient.[facility] HospitalIn the event this information is protected by the Federal Confidentiality of Alcohol and Drug Abuse Patient Records regulations: The Federal rules restrict any use of the information to criminally investigate or prosecute any alcohol or drug abuse patient.[facility] HospitalIn the event this information is protected by the Federal Confidentiality of Alcohol and Drug Abuse Patient Records regulations: The Federal rules restrict any use of the information to criminally investigate or prosecute any alcohol or drug abuse patient.[facility] HospitalIn the event this information is protected by the Federal Confidentiality of Alcohol and Drug Abuse Patient Records regulations: The Federal rules restrict any use of the information to criminally investigate or prosecute any alcohol or drug abuse patient.[facility] HospitalIn the event this information is protected by the Federal Confidentiality of Alcohol and Drug Abuse Patient Records regulations: The Federal rules restrict any use of the information to criminally investigate or prosecute any alcohol or drug abuse patient.[facility] HospitalIn the event this information is protected by the Federal Confidentiality of Alcohol and Drug Abuse Patient Records regulations: The Federal rules restrict any use of the information to criminally investigate or prosecute any alcohol or drug abuse patient.[facility] HospitalIn the event this information is protected by the Federal Confidentiality of Alcohol and Drug Abuse Patient Records regulations: The Federal rules restrict any use of the information to criminally investigate or prosecute any alcohol or drug abuse patient.[facility] HospitalIn the event this information is protected by the Federal Confidentiality of Alcohol and Drug Abuse Patient Records regulations: The Federal rules restrict any use of the information to criminally investigate or prosecute any alcohol or drug abuse patient.[facility] HospitalIn the event this information is protected by the Federal Confidentiality of Alcohol and Drug Abuse Patient Records regulations: The Federal rules restrict any use of the information to criminally investigate or prosecute any alcohol or drug abuse patient.[facility] HospitalIn the event this information is protected by the Federal Confidentiality of Alcohol and Drug Abuse Patient Records regulations: The Federal rules restrict any use of the information to criminally investigate or prosecute any alcohol or drug abuse patient.[facility] HospitalIn the event this information is protected by the Federal Confidentiality of Alcohol and Drug Abuse Patient Records regulations: The Federal rules restrict any use of the information to criminally investigate or prosecute any alcohol or drug abuse patient.[facility] HospitalIn the event this information is protected by the Federal Confidentiality of Alcohol and Drug Abuse Patient Records regulations: The Federal rules restrict any use of the information to criminally investigate or prosecute any alcohol or drug abuse patient.[facility] HospitalIn the event this information is protected by the Federal Confidentiality of Alcohol and Drug Abuse Patient Records regulations: The Federal rules restrict any use of the information to criminally investigate or prosecute any alcohol or drug abuse patient.[facility] HospitalIn the event this information is protected by the Federal Confidentiality of Alcohol and Drug Abuse Patient Records regulations: The Federal rules restrict any use of the information to criminally investigate or prosecute any alcohol or drug abuse patient.[facility] HospitalIn the event this information is protected by the Federal Confidentiality of Alcohol and Drug Abuse Patient Records regulations: The Federal rules restrict any use of the information to criminally investigate or prosecute any alcohol or drug abuse patient.[facility] HospitalIn the event this information is protected by the Federal Confidentiality of Alcohol and Drug Abuse Patient Records regulations: The Federal rules restrict any use of the information to criminally investigate or prosecute any alcohol or drug abuse patient.[facility] HospitalIn the event this information is protected by the Federal Confidentiality of Alcohol and Drug Abuse Patient Records regulations: The Federal rules restrict any use of the information to criminally investigate or prosecute any alcohol or drug abuse patient.[facility] HospitalIn the event this information is protected by the Federal Confidentiality of Alcohol and Drug Abuse Patient Records regulations: The Federal rules restrict any use of the information to criminally investigate or prosecute any alcohol or drug abuse patient.[facility] HospitalIn the event this information is protected by the Federal Confidentiality of Alcohol and Drug Abuse Patient Records regulations: The Federal rules restrict any use of the information to criminally investigate or prosecute any alcohol or drug abuse patient.[facility] HospitalIn the event this information is protected by the Federal Confidentiality of Alcohol and Drug Abuse Patient Records regulations: The Federal rules restrict any use of the information to criminally investigate or prosecute any alcohol or drug abuse patient.[facility] HospitalIn the event this information is protected by the Federal Confidentiality of Alcohol and Drug Abuse Patient Records regulations: The Federal rules restrict any use of the information to criminally investigate or prosecute any alcohol or drug abuse patient.[facility] HospitalIn the event this information is protected by the Federal Confidentiality of Alcohol and Drug Abuse Patient Records regulations: The Federal rules restrict any use of the information to criminally investigate or prosecute any alcohol or drug abuse patient.[facility] HospitalIn the event this information is protected by the Federal Confidentiality of Alcohol and Drug Abuse Patient Records regulations: The Federal rules restrict any use of the information to criminally investigate or prosecute any alcohol or drug abuse patient.[facility] HospitalIn the event this information is protected by the Federal Confidentiality of Alcohol and Drug Abuse Patient Records regulations: The Federal rules restrict any use of the information to criminally investigate or prosecute any alcohol or drug abuse patient.[facility] HospitalIn the event this information is protected by the Federal Confidentiality of Alcohol and Drug Abuse Patient Records regulations: The Federal rules restrict any use of the information to criminally investigate or prosecute any alcohol or drug abuse patient.[facility] Reason for Visit (unrecogniz ed section and content) Reason Comments Thigh Pain left thigh pain x sa tur Reason Comments Results Reason Comments Radiology US Specialty Diagnoses / Procedures Referred By Contac t Referred To Contact US IMAGING Diagnoses Anterior leg pain, left Procedures US DVT LOWER LT DUP-SCAN XTR VEINS UNILATERAL/LIMITED STUDY Brock Avelar MD [address] [place] [address] Us Imaging Referral ID Status Reason Start Date Expiration Date V isits Requested Visits Authorized [id number] Closed Auto-Generate d Referral 02/08/2022 03/10/2023 1 1 Reason Onset Date Comments Population Health Navigation Outreach 02/22/2022 [facility] care gaps Reason Comments Wellness Toe Pain (Toe) L side pinky toe pawan n. Tripped over dog dishes. Reason Comments Patient Question Reason Comments Urinary Frequency With burning and pre ssure Reason Comments 6 Month Exam Reason Comments UTI Burning with urinati on Reason Comments Urinary Problem Vaginal Problem Burning around the v agina Reason Comments Patient Update Reason Comments Hospital F/U [facility] discharged 2022 Dysarthria and right hand weakness Reason Comments Difficulty Urinating Reason Comments UTI Frequency, burning s tarted this morning Reason Comments New Patient Specialty Diagnoses / Procedures Referred By Contac t Referred To Contact Neurology Diagnoses TIA (transient ischemic attack) Procedures CONSULT TO NEUROLOGY OFFICE/OUTPATIENT [facility] 60-74 MINUTES Mary Alejandro APRN.CNP [address] [place] [address] Referral ID Status Reason Start Date Expiration Date V isits Requested Visits Authorized [id number] Closed PCP Requested Referral 01/25/2023 01/25/2024 1 1 Reason Comments Inclusion Internship - Other Reason Comments Urinary Problem Pt reported urinary frequency, burning, x1 day. Reason Comments Patient Update Reason Comments Future Appointment [place], [place], Any Reason Comments Orders Mammogram Reason Comments Follow Up Reason Onset Date Comments Refill Request 08/02/2023 Reason Comments Insurance Authorization Reason Comments Depression Reason Comments Anxiety Medication follow up Reason Onset Date Comments Refill Request 02/22/2024 Reason Comments Acute Visit Reason Comments Medication Question Reason Comments mammogram order Reason Onset Date Comments Refill Request 06/11/2024 Reason Comments Refill Request Reason Onset Date Comments Refill Request 07/02/2024 Reason Onset Date Comments Population Health Navigation Outreach 09/13/2024 [employer] Reason Onset Date Comments Allied Health Visit 09/26/2024 Medication A dherence Outreach Reason Comments 6 Month Exam Reason Comments Results Erroneous encounter-disregard Reason Comments Geriatric Evaluation Specialty Diagnoses / Procedures Referred By Contac t Referred To Contact Gerontology Diagnoses Memory impairment Procedures CONSULT TO GERIATRICS OFFICE/OUTPATIENT [facility] 60 MINUTES Rosendo Brown MD [address] [place] [address] Phone: tel: fax: Referral ID Status Reason Start Date Expiration Date V isits Requested Visits Authorized [id number] Closed PCP Requested Referral 10/02/2024 10/02/2025 1 1 Reason Comments PAP Therapy Follow Up Reason Onset Date Comments Refill Request 12/03/2024 Reason Comments Nausea Reason Onset Date Comments Opened In Error 01/18/2025 Reason Onset Date Comments Transition Of Care 01/21/2025 Reason Comments Hospital F/U Reason Comments Patient Question regarding upcoming b rain MRI and follow up with Dr. Thompson Reason Comments positive IFOBT referral Patient Update Reason Onset Date Comments Allied Health Visit 02/26/2025 Medication A dherence Outreach Reason Onset Date Comments Refill Request 03/04/2025 Reason Onset Date Comments Refill Request 03/18/2025 Reason Comments Insurance Inquiry Reason Comments Referral Information Pre-Op CTHO Consult Cardiac Preop Checklist Care Teams (unrecognized sec tion and content) Wall Scraper Relationship Specialty Start Date End Date Rosendo Brown MD [address] [place], [place] [id number] PCP - General Family Practice 03/18/15 Wall Scraper Relationship Specialty Start Date End Date Rosendo Brown MD [address] [place], [place] [id number] PCP - General Family Practice 03/18/15 Wall Scraper Relationship Specialty Start Date End Date Rosendo Brown MD [address] [place], [place] [id number] PCP - General Family Practice 03/18/15 Wall Scraper Relationship Specialty Start Date End Date Rosendo Brown MD [address] [place], [place] [id number] PCP - General Family Practice 03/18/15 Wall Scraper Relationship Specialty Start Date End Date Rosendo Brown MD [address] [place] [address] PCP - General Family Practice 03/18/15 Wall Scraper Relationship Specialty Start Date End Date Rosendo Brown MD [address] [facility] [place] [address] PCP - General Family Practice 03/18/15 Wall Scraper Relationship Specialty Start Date End Date Rosendo Brown MD [address] [facility] [place] [address] PCP - General Family Practice 03/18/15 Wall Scraper Relationship Specialty Start Date End Date Rosendo Brown MD [address] [facility] [place] [address] PCP - General Family Practice 03/18/15 Wall Scraper Relationship Specialty Start Date End Date Rosendo Brown MD [address] [facility] [place] [address] PCP - General Family Medicine 03/18/15 Wall Scraper Relationship Specialty Start Date End Date Rosendo Brown MD [address] [facility] [place] [address] PCP - General Family Medicine 03/18/15 Wall Scraper Relationship Specialty Start Date End Date Rosendo Brown MD [address] [facility] [place] [address] PCP - General Family Medicine 03/18/15 Wall Scraper Relationship Specialty Start Date End Date Rosendo Brown MD [address] [facility] [place] [address] PCP - General Family Medicine 03/18/15 Wall Scraper Relationship Specialty Start Date End Date Rosendo Brown MD [address] [facility] [place] [address] PCP - General Family Medicine 03/18/15 Wall Scraper Relationship Specialty Start Date End Date Rosendo Brown MD [address] [facility] [place] [address] PCP - General Family Medicine 03/18/15 Wall Scraper Relationship Specialty Start Date End Date Rosendo Brown MD [address] [place] [address] PCP - General Family Medicine 03/18/15 Wall Scraper Relationship Specialty Start Date End Date Rosendo Brown MD [address] [place] [address] PCP - General Family Medicine 03/18/15 Team Status: Active Member Role Status Dates Dr. Rosendo Brown MD Family Provider Active Dr. Rosendo Brown MD Primary Care Provider Active Team Status: Active Member Role Status Dates Dr. Rosendo Brown MD Primary Care Provider Active Dr. Trev Leonardo , Emergency Provider Active Dr. Veronica Louise , DO Admit Provider, Att ending Provider, Other Provider Active Team Status: Active Member Role Status Dates Dr. Rosendo Brown MD Primary Care Provider Active Dr. Trev Leonardo , Emergency Provider Active Dr. Veronica Louise , DO Admit Provider, Attending Provide r Active Wall Scraper Relationship Specialty Start Date End Date Rosendo Brown MD [address] [place] [address] PCP - General Family Medicine 03/18/15 Wall Scraper Relationship Specialty Start Date End Date Rosendo Brown MD [address] [place] [address] PCP - General Family Medicine 03/18/15 Wall Scraper Relationship Specialty Start Date End Date Rosendo Brown MD [address] [place] [address] PCP - General Family Medicine 03/18/15 Wall Scraper Relationship Specialty Start Date End Date Rosendo Brown MD [address] [place] [address] PCP - General Family Medicine 03/18/15 Team Status: Active Member Role Status Dates Dr. Rosendo Brown MD Primary Care Provider Active Dr. Cayetano Marie MD Attending Provider Active Team Status: Inactive Member Role Status Dates Dr. Rosendo Brown MD Primary Care Provider, Referring Provider Active Antonio San PRODUCT REPRESENTATIVE, PRODUCT REPRESENTATIVE-C Attending Provider Active Team Status: Active Member Role Status Dates Dr. Rosendo Brown MD Primary Care Provider Active Antonio San PRODUCT REPRESENTATIVE, PRODUCT REPRESENTATIVE-C Referring Provider, Other Provide r Active Dr. Cayetano Marie MD Attending Provider Active Team Status: Active Member Role Status Dates Dr. Rosendo Brown MD Primary Care Provider Active Antonio San PRODUCT REPRESENTATIVE, PRODUCT REPRESENTATIVE-C Attending Provider Active Team Status: Inactive Member Role Status Dates Dr. Rosendo Brown MD Primary Care Provider Active Dr. Trev Leonardo DO Emergency Provider Active Dr. Veronica Louise DO Admit Provider, Attending Provide r Active Team Status: Active Member Role Status Dates Dr. Rosendo Brown MD Primary Care Provider Active Dr. Veronica Louise DO Attending Provider Active Team Status: Inactive Member Role Status Dates Dr. Rosendo Brown MD Primary Care Provider Active Antonio San PRODUCT REPRESENTATIVE, PRODUCT REPRESENTATIVE-C Attending Provider, Referring Pro vider Active Wall Scraper Relationship Specialty Start Date End Date Rosendo Brown MD [address] [place] [address] PCP - General Family Medicine 03/18/15 Team Status: Inactive Member Role Status Dates Dr. Rosendo Brown MD Primary Care Provider Active Dr. Susana Ayala MD Attending Provider, Referring P rovider Active Wall Scraper Relationship Specialty Start Date End Date Rosendo Brown MD [address] [place] [address] PCP - General Family Medicine 03/18/15 Wall Scraper Relationship Specialty Start Date End Date Rosendo Brown MD [address] [place] [address] PCP - General Family Medicine 03/18/15 Wall Scraper Relationship Specialty Start Date End Date Rosendo Brown MD [address] [place] [address] PCP - General Family Medicine 03/18/15 Wall Scraper Relationship Specialty Start Date End Date Rosendo Brown MD [address] [place] [address] PCP - General Family Medicine 03/18/15 Wall Scraper Relationship Specialty Start Date End Date Rosendo Brown MD [address] [facility] [place] [address] PCP - General Family Medicine 03/18/15 Wall Scraper Relationship Specialty Start Date End Date Rosendo Brown MD [address] [facility] [place] [address] PCP - General Family Medicine 03/18/15 Wall Scraper Relationship Specialty Start Date End Date Rosendo Brown MD [address] [facility] [place] [address] PCP - General Family Medicine 03/18/15 Team Status: Inactive Member Role Status Dates Dr. Rosendo Brown MD Primary Care Provi lupillo, Attending Provider, Referring Provider Active Wall Scraper Relationship Specialty Start Date End Date Rosendo Brown MD [address] [place] [address] PCP - General Family Medicine 03/18/15 Wall Scraper Relationship Specialty Start Date End Date Rosendo Brown MD [address] [place], [place] [address] PCP - General Family Medicine 03/18/15 Wall Scraper Relationship Specialty Start Date End Date Rosendo Brown MD [address] [facility] [place] [address] PCP - General Family Medicine 03/18/15 Wall Scraper Relationship Specialty Start Date End Date Rosendo Brown MD [address] [facility] [place] [address] PCP - General Family Medicine 03/18/15 Team Status: Inactive Member Role Status Dates Dr. Rosendo Brown MD Primary Care Provider, Referring Provider Active Dr. Lawrence David DO Attending Provider Active Team Status: Inactive Member Role Status Dates Dr. Rosendo Brown MD Primary Care Provider Active Dr. Lawrence David DO Attending Provider, Referring Provider Active Wall Scraper Relationship Specialty Start Date End Date Rosendo Brown MD [address] [place], [place] [address] PCP - General Family Medicine 03/18/15 Wall Scraper Relationship Specialty Start Date End Date Rosendo Brown MD [address] [place], [place] [address] PCP - General Family Medicine 03/18/15 Wall Scraper Relationship Specialty Start Date End Date Rosendo Brown MD [address] [place] [address] PCP - General Family Medicine 03/18/15 Wall Scraper Relationship Specialty Start Date End Date Rosendo Brown MD [address] [place], [place] [address] PCP - General Family Medicine 03/18/15 Wall Scraper Relationship Specialty Start Date End Date Rosendo Brown MD [address] [place] [address] PCP - General Family Medicine 03/18/15 Wall Scraper Relationship Specialty Start Date End Date Rosendo Brown MD [address] [place], [place] [address] PCP - General Family Medicine 03/18/15 Wall Scraper Relationship Specialty Start Date End Date Rosendo Brown MD [address] [place], [place] [address] PCP - General Family Medicine 03/18/15 Wall Scraper Relationship Specialty Start Date End Date Rosendo Brown MD [address] [place], [place] [address] PCP - General Family Medicine 03/18/15 Wall Scraper Relationship Specialty Start Date End Date Rosendo Brown MD [address] [place], [place] [address] PCP - General Family Medicine 03/18/15 Wall Scraper Relationship Specialty Start Date End Date Rosendo Brown MD [address] [place], [place] [address] PCP - General Family Medicine 03/18/15 Wall Scraper Relationship Specialty Start Date End Date Rosendo Brown MD [address] [place] [address] PCP - General Family Medicine 03/18/15 Mary Alejandro, DISPENSARY TECHNICIAN.VECTOR CONTROL ASSISTANT [address] [place] [address] Dairy Bar Manager Family Medicine 08/20/24 Angelica Ivan APRN.VECTOR CONTROL ASSISTANT [address] [place], [place] [address] Dairy Bar Manager Family Medicine 08/20/24 Wall Scraper Relationship Specialty Start Date End Date Rosendo Brown MD [address] [place], [place] [address] PCP - General Family Medicine 03/18/15 Mray Alejandro DISPENSARY TECHNICIAN.VECTOR CONTROL ASSISTANT [address] [place], [place] [address] Dairy Bar Manager Family Medicine 08/20/24 Angelica Ivan DISPENSARY TECHNICIAN.VECTOR CONTROL ASSISTANT [address] [facility] [place] [address] [facility] 08/20/24 Wall Scraper Relationship Specialty Start Date End Date Rosendo Brown MD [address] [facility] [place] [address] PCP - General Family Medicine 03/18/15 Mary Alejandro APRN.VECTOR CONTROL ASSISTANT [address] [place] [address] [facility] 08/20/24 Angelica Ivan DISPENSARY TECHNICIAN.VECTOR CONTROL ASSISTANT [address] [facility] [place] [address] [facility] 08/20/24 Wall Scraper Relationship Specialty Start Date End Date Rosendo Brown MD [address] [facility] [place] [address] PCP - General Family Medicine 03/18/15 Mary Alejandro DISPENSARY TECHNICIAN.VECTOR CONTROL ASSISTANT [address] [place] [address] [facility] 08/20/24 Angelica Ivan DISPENSARY TECHNICIAN.VECTOR CONTROL ASSISTANT [address] [facility] [place] [address] [facility] 08/20/24 Wall Scraper Relationship Specialty Start Date End Date Rosendo Brown MD [address] [facility] [place] [address] PCP - General Family Medicine 03/18/15 Mary Alejandro APRN.VECTOR CONTROL ASSISTANT [address] [facility], [place] [address] [facility] 08/20/24 Angelica Ivan APRN.VECTOR CONTROL ASSISTANT [address] [facility] [place] [address] [facility] 08/20/24 Wall Scraper Relationship Specialty Start Date End Date Rosendo Brown MD [address] [facility] [place], [place] [address] PCP - General Family Medicine 03/18/15 Mary Alejandro APRN.VECTOR CONTROL ASSISTANT [address] [place] [address] [facility] 08/20/24 Angelica Ivan APRN.VECTOR CONTROL ASSISTANT [address] [facility] [place], [place] [address] [facility] 08/20/24 Team Status: Inactive Member Role Status Dates Dr. Rosendo Brown MD Primary Care Provider Active Start: July 26, 2024 End: July 26, 2024 Dr. Rosendo Brown MD Referring Provider Active Start: July 26, 2024 End: July 26, 2024 Antonio San PRODUCT REPRESENTATIVE, PRODUCT REPRESENTATIVE-C Attending Provider Active S tart: July 26, 2024 End: July 26, 2024 Team Status: Inactive Member Role Status Dates Dr. Rosendo Brown MD Primary Care Provider Active Start: July 26, 2024 End: July 26, 2024 Antonio San PRODUCT REPRESENTATIVE, PRODUCT REPRESENTATIVE-C Attending Provider Active S tart: July 26, 2024 End: July 26, 2024 Antonio San PRODUCT REPRESENTATIVE, PRODUCT REPRESENTATIVE-C Referring Provider Active S tart: July 26, 2024 End: July 26, 2024 Team Status: Inactive Member Role Status Dates Dr. Rosendo Brown MD Primary Care Provider Active Start: August 20, 2024 End: August 20, 2024 Antonio San PRODUCT REPRESENTATIVE, PRODUCT REPRESENTATIVE-C Attending Provider Active S tart: August 20, 2024 End: August 20, 2024 Antonio San PRODUCT REPRESENTATIVE, PRODUCT REPRESENTATIVE-C Referring Provider Active S tart: August 20, 2024 End: August 20, 2024 Team Status: Active Member Role Status Dates Dr. Rosendo Brown MD Primary Care Provider Active Start: August 20, 2024 Dr. Cayetano Marie MD Attending Provider Active S tart: August 20, 2024 Team Status: Inactive Member Role Status Dates Dr. Rosendo rBown MD Primary Care Provider Active Start: November 09, 2024 End: November 09, 2024 Antonio San PRODUCT REPRESENTATIVE, PRODUCT REPRESENTATIVE-C Attending Provider Active S tart: November 09, 2024 End: November 09, 2024 Antonio San PRODUCT REPRESENTATIVE, PRODUCT REPRESENTATIVE-C Referring Provider Active S tart: November 09, 2024 End: November 09, 2024 Team Status: Inactive Member Role Status Dates Dr. Rosendo Brown MD Primary Care Provider Active Start: November 09, 2024 End: November 09, 2024 Dr. Rosendo Brown MD Referring Provider Active Start: November 09, 2024 End: November 09, 2024 Dr. Lawrence David DO Attending Provider Active Start: November 09, 2024 End: November 09, 2024 Wall Scraper Relationship Specialty Start Date End Date Rosendo Brown MD [address] [place], [place] [address] PCP - General Family Medicine 03/18/15 Mary Alejandro, DISPENSARY TECHNICIAN.VECTOR CONTROL ASSISTANT [address] [place], [place] [address] Dairy Bar Manager Family Medicine 08/20/24 Angelica Ivan DISPENSARY TECHNICIAN.VECTOR CONTROL ASSISTANT [address] [place], [place] [address] Dairy Bar Manager Family [facility] 08/20/24 Wall Scraper Relationship Specialty Start Date End Date Rosendo Brown MD [address] [place] [address] PCP - General Family Medicine 03/18/15 Mary Alejandro APRN.VECTOR CONTROL ASSISTANT [address] [place] [address] [facility] Angelica Ivan APRN.VECTOR CONTROL ASSISTANT [address] [place] [address] [facility] 08/[facility] Wall Scraper Relationship Specialty Start Date End Date Rosendo Brown MD [address] [place] [address] PCP - General Family Medicine 03/18/15 Mary Alejandro APRN.VECTOR CONTROL ASSISTANT [address] [place] [address] [facility] 08/[facility]/24 Angelica Ivan DISPENSARY TECHNICIAN.VECTOR CONTROL ASSISTANT [address] [place] [address] [facility] Team Status: Active Member Role Status Dates Dr. Rosendo Brown MD Primary Care Provider Active Team Status: Inactive Member Role Status Dates Dr. Rosendo Brown MD Primary Care Provider Active Start: January 16, 2025 End: January 16, 2025 Dr. Rosendo Brown MD Referring Provider Active Start: January 16, 2025 End: January 16, 2025 Antonio San PRODUCT REPRESENTATIVE, PRODUCT REPRESENTATIVE-C Attending Provider Active S tart: January 16, 2025 End: January 16, 2025 Team Status: Active Member Role Status Dates Dr. Rosendo Brown MD Primary Care Provider Active Start: January 16, 2025 Antonio San PRODUCT REPRESENTATIVE, PRODUCT REPRESENTATIVE-C Attending Provider Active S tart: January 16, 2025 Antonio San PRODUCT REPRESENTATIVE, PRODUCT REPRESENTATIVE-C Referring Provider Active S tart: January 16, 2025 Team Status: Active Member Role Status Dates Dr. Rosendo Brown MD Primary Care Provider Active Start: January 17, 2025 Dr. Jacinto Flores MD Emergency Provider Active Start: January 17, 2025 Dr. Veronica Louise DO Admit Provider Active Start : January 17, 2025 Dr. Veronica Louise DO Attending Provider Active S tart: January 17, 2025 Team Status: Active Member Role Status Dates Dr. Rosendo Brown MD Primary Care Provider Active Start: January 17, 2025 Dr. Jacinto Flores MD Emergency Provider Active Start: January 17, 2025 Dr. Pato Simmons MD Attending Provider Active Start: January 17, 2025 Team Status: Inactive Member Role Status Dates Dr. Rosendo Brown MD Primary Care Provider Active Start: January 17, 2025 End: January 19, 2025 Dr. Jacinto Flores MD Emergency Provider Active Start: January 17, 2025 End: January 19, 2025 Dr. Veronica Louise DO Admit Provider Active Start : January 17, 2025 End: January 19, 2025 Dr. Veronica Louise DO Attending Provider Active S tart: January 17, 2025 End: January 19, 2025 Dr. Veronica Louise DO Other Provider Active Start : January 17, 2025 Team Status: Active Member Role Status Dates Dr. Rosendo Brown MD Primary Care Provider Active Start: January 17, 2025 Dr. Liat Hale MD Attending Provider Active Start: January 17, 2025 Team Status: Active Member Role Status Dates Dr. Rosendo Brown MD Primary Care Provider Active Start: January 18, 2025 Dr. Jacinto Flores MD Emergency Provider Active Start: January 18, 2025 Dr. Veronica Louise DO Admit Provider Active Start : January 18, 2025 Dr. Veronica Louise DO Other Provider Active Start : January 18, 2025 Dr. Liat Hale MD Attending Provider Active Start: January 18, 2025 Team Status: Active Member Role Status Dates Dr. Rosendo Brown MD Primary Care Provider Active Start: January 18, 2025 Dr. Jacinto Flores MD Emergency Provider Active Start: January 18, 2025 Dr. Veronica Louise DO Admit Provider Active Start : January 18, 2025 Dr. Veronica Louise DO Attending Provider Active S tart: January 18, 2025 Dr. Veronica Louise DO Other Provider Active Start : January 18, 2025 Team Status: Inactive Member Role Status Dates Dr. Rosendo Brown MD Primary Care Provider Active Start: January 16, 2025 End: January 16, 2025 Antonio San PRODUCT REPRESENTATIVE, PRODUCT REPRESENTATIVE-C Attending Provider Active S tart: January 16, 2025 End: January 16, 2025 Antonio San PRODUCT REPRESENTATIVE, PRODUCT REPRESENTATIVE-C Referring Provider Active S tart: January 16, 2025 End: January 16, 2025 Team Status: Active Member Role Status Dates Dr. Rosendo Brown MD Primary Care Provider Active Start: January 19, 2025 Dr. Jacinto Flores MD Emergency Provider Active Start: January 19, 2025 Dr. Veronica Louise DO Admit Provider Active Start : January 19, 2025 Dr. Veronica Louise DO Attending Provider Active S tart: January 19, 2025 Dr. Veronica Louise DO Other Provider Active Start : January 19, 2025 Team Status: Inactive Member Role Status Dates Dr. Rosendo Brown MD Primary Care Provider Active Start: January 21, 2025 End: January 21, 2025 Dr. Rosendo Brown MD Referring Provider Active Start: January 21, 2025 End: January 21, 2025 Antonio San PRODUCT REPRESENTATIVE, PRODUCT REPRESENTATIVE-C Attending Provider Active S tart: January 21, 2025 End: January 21, 2025 Team Status: Active Member Role Status Dates Dr. Rosendo Brown MD Primary Care Provider Active Start: January 21, 2025 Antonio San PRODUCT REPRESENTATIVE, PRODUCT REPRESENTATIVE-C Attending Provider Active S tart: January 21, 2025 Antonio San PRODUCT REPRESENTATIVE, PRODUCT REPRESENTATIVE-C Referring Provider Active S tart: January 21, 2025 Team Status: Active Member Role Status Dates Dr. Rosendo Brown MD Primary Care Provider Active Start: January 19, 2025 End: January 19, 2025 Dr. Pato Simmons MD Attending Provider Active Start: January 19, 2025 End: January 19, 2025 Dr. Pato Simmons MD Referring Provider Active Start: January 19, 2025 End: January 19, 2025 Team Status: Inactive Member Role Status Dates Dr. Rosendo Brown MD Primary Care Provider Active Start: January 25, 2025 End: January 25, 2025 Dr. Rosendo Brown MD Referring Provider Active Start: January 25, 2025 End: January 25, 2025 Dr. Lawrence David DO Attending Provider Active Start: January 25, 2025 End: January 25, 2025 Team Status: Inactive Member Role Status Dates Dr. Rosendo Brown MD Primary Care Provider Active Start: January 21, 2025 End: January 21, 2025 Antonio San PRODUCT REPRESENTATIVE, PRODUCT REPRESENTATIVE-C Attending Provider Active S tart: January 21, 2025 End: January 21, 2025 Antonio San PRODUCT REPRESENTATIVE, PRODUCT REPRESENTATIVE-C Referring Provider Active S tart: January 21, 2025 End: January 21, 2025 Wall Scraper Relationship Specialty Start Date End Date Rosendo Brown MD [address] [facility] [place], [place] [id number] PCP - General Family Medicine 03/18/15 Mary Alejandro, DISPENSARY TECHNICIAN.VECTOR CONTROL ASSISTANT [address] [facility], [place] [address] [facility] 08/20/24 Angelica Ivan DISPENSARY TECHNICIAN.VECTOR CONTROL ASSISTANT [address] [facility] [place], [place] [id number] [facility] 08/20/24 Team Status: Inactive Member Role Status Dates Dr. Rosendo Brown MD Primary Care Provider Active Start: January 28, 2025 End: January 28, 2025 Dr. Rosendo Brown MD Referring Provider Active Start: January 28, 2025 End: January 28, 2025 Antonio San PRODUCT REPRESENTATIVE, PRODUCT REPRESENTATIVE-C Attending Provider Active S tart: January 28, 2025 End: January 28, 2025 Wall Scraper Relationship Specialty Start Date End Date Rosendo Brown MD [address] [facility] [place], [place] [address] PCP - General Family Medicine 03/18/15 Mary Alejandro, DISPENSARY TECHNICIAN.VECTOR CONTROL ASSISTANT [address] [facility], [place] [id number] [facility] 08/20/24 Angelica Ivan APRN.VECTOR CONTROL ASSISTANT [address] [place], [place] [address] [facility] 08/20/24 Team Status: Inactive Member Role Status Dates Dr. Rosendo Brown MD Primary Care Provider Active Start: February 05, 2025 End: February 05, 2025 Dr. Lawrence David DO Attending Provider Active Start: February 05, 2025 End: February 05, 2025 Dr. Lawrence David DO Referring Provider Active Start: February 05, 2025 End: February 05, 2025 Team Status: Inactive Member Role Status Dates Dr. Rosendo Brown MD Primary Care Provider Active Start: February 12, 2025 End: February 12, 2025 Dr. Rosendo Brown MD Referring Provider Active Start: February 12, 2025 End: February 12, 2025 Antonio San PRODUCT REPRESENTATIVE, PRODUCT REPRESENTATIVE-C Attending Provider Active S tart: February 12, 2025 End: February 12, 2025 Team Status: Inactive Member Role Status Dates Dr. Rosendo Brown MD Primary Care Provider Active Start: February 18, 2025 End: February 18, 2025 Antonio San PRODUCT REPRESENTATIVE, PRODUCT REPRESENTATIVE-C Attending Provider Active S tart: February 18, 2025 End: February 18, 2025 Antonio San PRODUCT REPRESENTATIVE, PRODUCT REPRESENTATIVE-C Referring Provider Active S tart: February 18, 2025 End: February 18, 2025 Wall Scraper Relationship Specialty Start Date End Date Rosendo Brown MD [address] [place], [place] [address] PCP - General Family Medicine 03/18/15 Mary Alejandro APRN.VECTOR CONTROL ASSISTANT [address] [place], [place] [id number] [facility] 08/20/24 Angelica Ivan DISPENSARY TECHNICIAN.VECTOR CONTROL ASSISTANT [address] [place] [address] [facility] 08/20/24 Wall Scraper Relationship Specialty Start Date End Date Rosendo Brown MD [address] [place] [address] PCP - General Family Medicine 03/18/15 Mary Alejandro APRN.VECTOR CONTROL ASSISTANT [address] [place] [address] [facility] 08/20/24 Angelica Ivan APRN.VECTOR CONTROL ASSISTANT [address] [place] [address] [facility] 08/20/24 Team Status: Active Member Role/Relationship Status Dates Dr. Rosendo Brown MD Primary Care Provider Active Team Status: Inactive Member Role/Relationship Status Dates Dr. Rosendo Brown MD Primary Care Provider Active Start: January 16, 2025 End: January 16, 2025 Dr. Rosendo Brown MD Referring Provider Active Start: January 16, 2025 End: January 16, 2025 Antonio San PRODUCT REPRESENTATIVE, PRODUCT REPRESENTATIVE-C Attending Provider Active S tart: January 16, 2025 End: January 16, 2025 Team Status: Inactive Member Role/Relationship Status Dates Dr. Rosendo Brown MD Primary Care Provider Active Start: January 16, 2025 End: January 16, 2025 Antonio San PRODUCT REPRESENTATIVE, PRODUCT REPRESENTATIVE-C Attending Provider Active S tart: January 16, 2025 End: January 16, 2025 Antonio San PRODUCT REPRESENTATIVE, PRODUCT REPRESENTATIVE-C Referring Provider Active S tart: January 16, 2025 End: January 16, 2025 Team Status: Inactive Member Role/Relationship Status Dates Dr. Rosendo Brown MD Primary Care Provider Active Start: January 17, 2025 End: January 19, 2025 Dr. Jacinto Flores MD Emergency Provider Active Start: January 17, 2025 End: January 19, 2025 Dr. Veronica Louise , Admit Provider Active Start : January 17, 2025 End: January 19, 2025 Dr. Veronica Louise DO Attending Provider Active S tart: January 17, 2025 End: January 19, 2025 Dr. Veronica Louise DO Other Provider Active Start : January 17, 2025 Team Status: Active Member Role/Relationship Status Dates Dr. Rosendo Brown MD Primary Care Provider Active Start: January 17, 2025 Dr. Jacinto Flores MD Emergency Provider Active Start: January 17, 2025 Dr. Pato Simmons MD Attending Provider Active Start: January 17, 2025 Team Status: Active Member Role/Relationship Status Dates Dr. Rosendo Brown MD Primary Care Provider Active Start: January 17, 2025 Dr. Liat Hale MD Attending Provider Active Start: January 17, 2025 Team Status: Active Member Role/Relationship Status Dates Dr. Rosendo Brown MD Primary Care Provider Active Start: January 18, 2025 Dr. Jacinto Flores MD Emergency Provider Active Start: January 18, 2025 Dr. Veronica Louise DO Admit Provider Active Start : January 18, 2025 Dr. Veronica Louise DO Other Provider Active Start : January 18, 2025 Dr. Liat Hale MD Attending Provider Active Start: January 18, 2025 Team Status: Active Member Role/Relationship Status Dates Dr. Rosendo Brown MD Primary Care Provider Active Start: January 18, 2025 Dr. Jacinto Flores MD Emergency Provider Active Start: January 18, 2025 Dr. Veronica Louise DO Admit Provider Active Start : January 18, 2025 Dr. Veronica Louise DO Attending Provider Active S tart: January 18, 2025 Dr. Veronica Louise DO Other Provider Active Start : January 18, 2025 Team Status: Active Member Role/Relationship Status Dates Dr. Rosendo Brown MD Primary Care Provider Active Start: January 19, 2025 End: January 19, 2025 Dr. Pato Simmons MD Attending Provider Active Start: January 19, 2025 End: January 19, 2025 Dr. Pato Simmons MD Referring Provider Active Start: January 19, 2025 End: January 19, 2025 Team Status: Active Member Role/Relationship Status Dates Dr. Rosendo Brown MD Primary Care Provider Active Start: January 19, 2025 Dr. Jacinto Flores MD Emergency Provider Active Start: January 19, 2025 Dr. Veronica Louise DO Admit Provider Active Start : January 19, 2025 Dr. Veronica Louise DO Attending Provider Active S tart: January 19, 2025 Dr. Veronica Louise DO Other Provider Active Start : January 19, 2025 Team Status: Inactive Member Role/Relationship Status Dates Dr. Rosendo Brown MD Primary Care Provider Active Start: January 21, 2025 End: January 21, 2025 Dr. Rosendo Brown MD Referring Provider Active Start: January 21, 2025 End: January 21, 2025 Antonio San PRODUCT REPRESENTATIVE, PRODUCT REPRESENTATIVE-C Attending Provider Active S tart: January 21, 2025 End: January 21, 2025 Team Status: Inactive Member Role/Relationship Status Dates Dr. Rosendo Brown MD Primary Care Provider Active Start: January 21, 2025 End: January 21, 2025 Antonio San PRODUCT REPRESENTATIVE, PRODUCT REPRESENTATIVE-C Attending Provider Active S tart: January 21, 2025 End: January 21, 2025 Antonio San PRODUCT REPRESENTATIVE, PRODUCT REPRESENTATIVE-C Referring Provider Active S tart: January 21, 2025 End: January 21, 2025 Team Status: Inactive Member Role/Relationship Status Dates Dr. Rosendo Brown MD Primary Care Provider Active Start: January 25, 2025 End: January 25, 2025 Dr. Rosendo Brown MD Referring Provider Active Start: January 25, 2025 End: January 25, 2025 Dr. Lawrence David DO Attending Provider Active Start: January 25, 2025 End: January 25, 2025 Team Status: Inactive Member Role/Relationship Status Dates Dr. Rosendo Brown MD Primary Care Provider Active Start: January 28, 2025 End: January 28, 2025 Dr. Rosendo Brown MD Referring Provider Active Start: January 28, 2025 End: January 28, 2025 Antonio San PRODUCT REPRESENTATIVE, PRODUCT REPRESENTATIVE-C Attending Provider Active S tart: January 28, 2025 End: January 28, 2025 Team Status: Inactive Member Role/Relationship Status Dates Dr. Rosendo Brown MD Primary Care Provider Active Start: February 05, 2025 End: February 05, 2025 Dr. Lawrence David DO Attending Provider Active Start: February 05, 2025 End: February 05, 2025 Dr. Lawrence David DO Referring Provider Active Start: February 05, 2025 End: February 05, 2025 Team Status: Inactive Member Role/Relationship Status Dates Dr. Rosendo Brown MD Primary Care Provider Active Start: February 12, 2025 End: February 12, 2025 Dr. Rosendo Brown MD Referring Provider Active Start: February 12, 2025 End: February 12, 2025 Antonio San PRODUCT REPRESENTATIVE, PRODUCT REPRESENTATIVE-C Attending Provider Active S tart: February 12, 2025 End: February 12, 2025 Team Status: Inactive Member Role/Relationship Status Dates Dr. Rosendo Brown MD Primary Care Provider Active Start: February 18, 2025 End: February 18, 2025 Antonio San PRODUCT REPRESENTATIVE, PRODUCT REPRESENTATIVE-C Attending Provider Active S tart: February 18, 2025 End: February 18, 2025 Antonio San PRODUCT REPRESENTATIVE, PRODUCT REPRESENTATIVE-C Referring Provider Active S tart: February 18, 2025 End: February 18, 2025 Team Status: Active Member Role/Relationship Status Dates Dr. Rosendo Brown MD Primary Care Provider Active Start: February 18, 2025 Dr. Cayetano Marie MD Attending Provider Active S tart: February 18, 2025 Team Status: Active Member Role/Relationship Status Dates Dr. Rosendo Brown MD Primary Care Provider Active Start: March 13, 2025 Dr. Cayetano Marie MD Attending Provider Active S tart: March 13, 2025 Team Status: Inactive Member Role/Relationship Status Dates Dr. Rosendo Brown MD Primary Care Provider Active Start: March 13, 2025 End: March 13, 2025 Dr. Cayetano Marie MD Attending Provider Active S tart: March 13, 2025 End: March 13, 2025 Dr. Cayetano Marie MD Referring Provider Active S tart: March 13, 2025 End: March 13, 2025 Wall Scraper Relationship Specialty Start Date End Date Rosendo Brown MD [address] [place], [place] [id number] PCP - General Family Medicine 03/18/15 Mary Alejandro APRN.VECTOR CONTROL ASSISTANT [address] [place] [address] Dairy Bar Manager Family Medicine 08/20/24 Angelica Ivan DISPENSARY TECHNICIAN.VECTOR CONTROL ASSISTANT [address] [place] [address] [facility] Harmony Callahan MD [address] [place] [address] Surgeon Cardiac Surg 03/13/25 Cayetano Marie MD [address] [place] [address] Referring Cardiology 03/13/25 Wall Scraper Relationship Specialty Start Date End Date Rosendo Brown MD [address] [place] [address] PCP - General Family Medicine 03/18/15 Mary Alejandro, DISPENSARY TECHNICIAN.VECTOR CONTROL ASSISTANT [address] [place] [address] [facility] 08/[facility]/24 Angelica Ivan, DISPENSARY TECHNICIAN.VECTOR CONTROL ASSISTANT [address] [place] [address] [facility] 08/20/24 Harmony Callahan MD [address] [place] [address] Surgeon Cardiac Surg 03/13/25 Cayetano Marie MD [address] [place] [address] Referring Cardiology 03/13/25 Wall Scraper Relationship Specialty Start Date End Date Rosendo Brown MD [address] [place] [address] PCP - General Family Medicine 03/18/15 Mary Alejandro APRN.VECTOR CONTROL ASSISTANT [address] [place] [address] Dairy Bar Manager Family [facility] 08/20/24 Angelica Ivan DISPENSARY TECHNICIAN.VECTOR CONTROL ASSISTANT [address] [place] [address] Dairy Bar Manager Family [facility] 08/20/24 Harmony Callahan MD [address] [place] [address] Surgeon Cardiac Surg 03/13/25 Cayetano Marie MD [address] [place] [phone] Referring Cardiology 03/13/25 Wall Scraper Relationship Specialty Start Date End Date Rosendo Brown MD [address] [place] [address] PCP - General Family Medicine 03/18/15 Mary Alejandro DISPENSARY TECHNICIAN.VECTOR CONTROL ASSISTANT [address] [place] [address] Dairy Bar Manager Family [facility] 08/20/24 Angelica Ivan DISPENSARY TECHNICIAN.VECTOR CONTROL ASSISTANT [address] [place], [place] [address] [facility] 08/20/24 Harmony Callahan MD [address] [place] [address] Surgeon Cardiac Surg 03/13/25 Cayetano Marie MD [address] [place] [phone] Referring Cardiology 03/13/25 Team Status: Inactive Member Role/Relationship Status Dates Dr. Rosendo Brown MD Primary Care Provider Active Start: April 01, 2025 End: April 01, 2025 Dr. Rosendo Brown MD Referring Provider Active Start: April 01, 2025 End: April 01, 2025 Dr. Lawrence David DO Attending Provider Active Start: April 01, 2025 End: April 01, 2025 Wall Scraper Relationship Specialty Start Date End Date Rosendo Brown MD [address] [place], [place] [id number] PCP - General Family Medicine 03/18/15 Mary Alejandro APRN.VECTOR CONTROL ASSISTANT [address] [place], [place] [id number] Dairy Bar Manager Family Medicine 08/20/24 Angelica Ivan APRN.VECTOR CONTROL ASSISTANT [address] [place] [address] Dairy Bar Manager Family Medicine 08/20/24 Harmony Callahan MD [address] [place] [address] Surgeon Cardiac Surg 03/13/25 Cayetano Marie MD [address] [place] [phone] Referring Cardiology 03/13/25 Goals (unrecognized section and content) Goals may be documented in a n alternate sectionGoals may be documented in an alternate sectionGoals may be documented in an alternate sectionGoals may be documented in an alternate sectionGoals may be documented in an alternate sectionGoals may be documented in an alternate section FOR RECORDS PERTAINING TO PATIENTS WHO ARE OR HAVE BEEN ENROLLED IN A CHEMICAL DEPENDENCY/SUBSTANCEABUSE PROGRAM, SOME INFORMATION MAY BE OMITTED. This clinical summary was aggregated from multiple sources. Caution should be exercised in using it in the provision of clinical care. This summary normalizes information from multiple sources, and as a consequence, information in this document may materially change the coding, format and clinical context of patient data. In addition, data may be omitted in some cases. CLINICAL DECISIONS SHOULD BE BASED ON THE PRIMARY CLINICAL RECORDS. [facility]. provides no warranty or guarantee of the accuracy or completeness of information in this document."
--- OUTSIDE RECORDS SUMMARY | 2025-04-17 06:00 | XMS RPT_ITS | CCD ---
Author Organization [facility] CliniSyct Care Team Providers Care Video Systems Engineer Name Role Phone RODRICK ROSARIO Unavailable Unavailable RODRICK ROSARIO Unavailable Unavailable Rosendo Brown Unavailable Unavailable RODRICK ROSARIO Unavailable Unavailable RODRICK ROSARIO Unavailable Unavailable Rosendo Brown MD Primary Care Provider Dr. Rosendo Brown Primary Care Provider Dr. Rosendo Brown Referring Provider Dr. Lawrence David Attending Provider Dr. Lawrence David Referring Provider Dr. Lawrence Daivd Other Provider Dr. Rosendo Brown Primary Care Provider Dr. Lawrence David Attending Provider Dr. Rosendo Brown Referring Provider Dr. Rodrigo Pual Attending Provider Rosendo Brown MD Primary Care Provider Rosendo Brown MD Primary Care Provider Rosendo Brown MD Primary Care Provider Dr. Rosendo Brown Primary Care Provider Dr. Trev Leonardo Emergency Provider Dr. Veronica Louise Admit Provider Dr. Veronica Louise Attending Provider Dr. Veronica Louise Other Provider Dr. Cayetano Marie Attending Provider Dr. Rosendo Brown Referring Provider Roof SALES AGENT PROTECTIVE SERVICE, SALES AGENT PROTECTIVE SERVICE-C Antonio Turner Attending Provider Roof SALES AGENT PROTECTIVE SERVICE, SALES AGENT PROTECTIVE SERVICE-C Antonio Turner Referring Provider Roof SALES AGENT PROTECTIVE SERVICE, SALES AGENT PROTECTIVE SERVICE-C Antonio Turner Other Provider Dr. Rosendo Brown Primary Care Provider Dr. Rosendo Brown Referring Provider Dr. Lawrence David Attending Provider SELF Referring Unavailable ROSENDO BROWN Primary Care Unavailable Rosendo Brown MD Primary Care Provider Haagen COUNTER TENDER.STUDY ABROAD COORDINATOR, Mary Unavailable Suppan COUNTER TENDER.STUDY ABROAD COORDINATOR, Angelica A Unavailable Suppan COUNTER TENDER.STUDY ABROAD COORDINATOR, Angelica A Unavailable [phone] Suppan COUNTER TENDER.STUDY ABROAD COORDINATOR, Angelica A Unavailable Dr. Rosendo Brown MD Primary Care Provider Dr. Rosendo Brown MD Referring Provider Roof SALES AGENT PROTECTIVE SERVICE-C, Antonio Turner Attending Provider Roof SALES AGENT PROTECTIVE SERVICE-C, Antonio Turner Referring Provider Dr. Cayetano Marie MD Attending Provider Dr. Lawrence David DO Attending Provider Dr. Rosendo Brown MD Primary Care Provider Roof SALES AGENT PROTECTIVE SERVICE-C, Antonio Turner Attending Provider Roof SALES AGENT PROTECTIVE SERVICE-C, Antonio Turner Referring Provider Dr. Rosendo Brown [...] Stephanie WILSON, Dr. Sam Referring Provider Roof SALES AGENT PROTECTIVE SERVICE-C, Antonio Turner Attending Provider Roof SALES AGENT PROTECTIVE SERVICE-C, Antonio Turner Referring Provider Frankie BARBER, Dr. Bravo Attending Provider Frank WILSON, Dr. Monteiro Attending Provider [phone] Frank WILSON, Dr. Monteiro Referring Provider [phone] Anibal WILSON, Harmony Osuna Unavailable [phone] Frank WILSON, Cayetano S Unavailable TAYLOR THOMPSON [...] Care Unavailable Frank, Cayetano Attending Unavailable Frank, Cayetano Referring Unavailable [place], Rosendo Primary Care Unavailable Pato Simmons Attending Unavailable Pato Simmons Referring Unavailable Stephanie, Rosendo Primary Care Unavailable Frank, Cayetano Attending Unavailable [place], Rosendo Primary Care Unavailable Frank, Cayetano Attending Unavailable Stephanie, Rosendo Primary Care Unavailable Roof SALES AGENT PROTECTIVE SERVICE, Antonio Turner Referring Unavailable Roof SALES AGENT PROTECTIVE SERVICE, Antonio Turner Attending Unavailable Stephanie, Rosendo Primary Care Unavailable Lawrence David Attending Unavailable Lawrence David Referring Unavailable [place], Rosendo Primary Care Unavailable Veronica Louise Attending Unavailable [facility] Primary Care Unavailable Veronica Louise Admitting Unavailable Cayetano Marie Attending Unavailable FrankCayetano downing Referring Unavailable [facility] Primary Care Unavailable Friend, Lawrence Attending Unavailable [facility] Primary Care Unavailable [place], Rosendo Referring Unavailable Friend, Lawrence Attending Unavailable [facility] Primary Care Unavailable [place], Rosendo Referring Unavailable Roof SALES AGENT PROTECTIVE SERVICE, Antonio Turner Attending Unavailable [place], Rosendo Referring Unavailable [facility] Primary Care Unavailable Roof SALES AGENT PROTECTIVE SERVICE, Antonio Turner Attending Unavailable [facility] Primary Care Unavailable [place], Rosendo Referring Unavailable Friend, Lawrence Attending Unavailable [place], [facility] Primary Care Unavailable [place], Rosendo Referring Unavailable Roof SALES AGENT PROTECTIVE SERVICE, Antonio H Referring Unavailable Roof SALES AGENT PROTECTIVE SERVICE, Antonio H Attending Unavailable [facility] Primary Care Unavailable Roof SALES AGENT PROTECTIVE SERVICE, Antonio H Referring Unavailable Roof SALES AGENT PROTECTIVE SERVICE, Antonio Turner Attending Unavailable [facility] Primary Care Unavailable Roof SALES AGENT PROTECTIVE SERVICE, Antonio Turner Referring Unavailable Roof SALES AGENT PROTECTIVE SERVICE, Antonio Turner Attending Unavailable [facility] Primary Care Unavailable [place], Rosendo Attending Unavailable [facility] Primary Care Unavailable [place], Rosendo Referring Unavailable Veronica Louise Consulting Unavailable Veronica Louise Attending Unavailable [facility] Primary Care Unavailable Veronica Louise Admitting Unavailable GeoffreyLiat houser Attending Unavailable GeoffreyLiat Attending Unavailable [facility] Primary Care Unavailable Cayetano Marie Attending Unavailable [facility] Primary Care Unavailable Roof SALES AGENT PROTECTIVE SERVICE, Antonio H Referring Unavailable Roof SALES AGENT PROTECTIVE SERVICE, Antonio Turner Attending Unavailable [facility] Primary Care Unavailable Roof SALES AGENT PROTECTIVE SERVICE, Antonio Turner Referring Unavailable Roof SALES AGENT PROTECTIVE SERVICE, Antonio Turner Attending Unavailable [facility] Primary Care Unavailable Roof SALES AGENT PROTECTIVE SERVICE, Antonio Turner Attending Unavailable [facility] Primary Care Unavailable [place], Rosendo Referring Unavailable [place], Rosendo Referring Unavailable Roof SALES AGENT PROTECTIVE SERVICE, Antonio Turner Attending Unavailable [facility] Primary Care Unavailable [place], Rosendo Referring Unavailable FriendLawrence Attending Unavailable [facility] Primary Care Unavailable Roof SALES AGENT PROTECTIVE SERVICE, Antonio Turner Attending Unavailable [place], Rosendo Referring Unavailable [facility] Primary Care Unavailable Pato Simmons Attending Unavailable [facility] Primary Care Unavailable Roof SALES AGENT PROTECTIVE SERVICE, Antonio H Referring Unavailable Roof SALES AGENT PROTECTIVE SERVICE, Antonio Turner Attending Unavailable [facility] Primary Care Unavailable Friend, Lawrence Attending Unavailable Friend, Lawrence Referring Unavailable [facility] Primary Care Unavailable Allergies Allergy Classification Reported Allergen(s) Allergy Type Date of Onset Reaction(s) Facility (20 sources) ciprofloxacin; Translations: [CIPROFLOXACIN] Drug Allergy 05-24-20 14 Hives, Other: See Comments [facility] Repository (20 sources) dicyclomine; Translations: [DICYCLOMINE HCL] Drug Allergy 08-13-20 13 Mental Status Change [facility] (20 sources) erythromycin; Translations: [ERYTHROMYCIN] Drug Allergy 09-07-20 05 GI Upset [facility] (20 sources) HYDROmorphone; Translations: [HYDROMORPHONE (BULK)] Drug Allergy 09-07-20 05 Intolerance [facility] (20 sources) Latex; Translations: [LATEX] Propensity to adverse reactions (disorder) 07-26-20 07 Rash [facility] (20 sources) PROCHLORPERAZINE EDISYLATE; Translations: [PROCHLORPERAZINE EDISYLATE] Propensity to adverse reactions (disorder) 09-07-20 05 Intolerance [facility] (18 sources) Ciprofloxacin; Translations: [ciprofloxacin HCl] Drug Allergy 02-25-20 22 Hives [facility] (20 sources) Dicyclomine Drug Allergy 02-25-20 22 Other [facility] Comment on above: MAKES ME FEEL FUNNY DROWSY FOR ENTIRE DAY AFTER 1 DOSE. (20 sources) Erythromycin Drug Allergy 02-25-20 22 Vomiting [facility] (20 sources) HYDROmorphone; Translations: [hydromorphone HCl] Drug Allergy 02-25-20 22 anxiety [facility] (20 sources) Prochlorperazine; Translations: [prochlorperazine maleate] Drug Allergy 02-25-20 22 anxiety [facility] (11 sources) Atropine Drug Allergy 01-18-20 Nausea [facility] (11 sources) Diphenoxylate Drug Allergy 01-18-20 Nausea [facility] (1 source) Atropine Drug Allergy 02-13-20 [facility] Repository (1 source) Dicyclomine Drug Allergy 02-13-20 [facility] Repository (1 source) Diphenoxylate Drug Allergy 02-13-20 [facility] Repository (1 source) Erythromycin Drug Allergy 02-13-20 [facility] Repository Medications Current Medications Medication Drug [...] {tbl} PO DAILY January 20, 2023 12:00am Multivitamin,Vx-Doml-Wqmmhut s (3 sources) Start: 05-14-2014 take 1 tablet by mouth once daily Multivitamin,Dk-Kuul-Jvdznygm Active 1 TABLET PO DAILY May 14, [...] on above: Take 1 capsule by mo [facility] twice daily for 5 days. Take 1 [...] Drug Class(es) Dates Sig (Normalized) Sig (Original) [id number] actuat albuterol 0.09 mg/actuat metered dose [...] 25, 2018 1:00am November 09, 2018 3:00pm Fwwrtqth-Hlad-Ida7-C -Reji-Bosw (18 sources) Start: 3 End: 3 take 1 tablet by mouth once daily Ccbvloox-Cmvl-Ele8-C- Reji-Bosw Discontinued 1 TABLET PO DAILY February 15, 2023 1:14pm May 19, 2023 11:01am Start: 02-15-2023 take 1 tablet by tomas once daily Tqvpknbr-Mcxw-Ufc9-C-Reji-Bosw Active 1 TABLET PO DAILY February 15, 2023 1:14pm Start: 07-02-2016 End: 02-15-2023 Dklrsegl-Jfuj-Uxs8-C-Reji-Jignesh sw Discontinued 1 EACH PO DAILY July 02, 2016 12:00am February 15, 2023 1:16pm Start: 07-02-2016 Glucosam-Yemi- Ppv7-C-Femn-Bosw Active 1 EACH PO DAILY July 02, 2016 12:00am Orqfneul-Vjoc-Aik6-C-Reji-Jignesh sw 1 EACH tablet (12 sources) Start: 07-02-2016 End: 02-15-2023 take 1 tablet by mouth once daily Zunwhloi-Nwvg-Vho2-C-Reji-Bosw 1 EACH tablet Discontinued 1 NMA PO DAILY July 02, 2016 12:00am February 15, 2023 1:16pm SUPPLEMENT Start: 07-02-2016 End: 02-15-2023 take 1 tablet by mouth once daily Fnoxjogg-Xmct-Waf1-C-Reji-Bosw 1 EACH ta blet Discontinued 1 NMA PO DAILY July 02, 2016 12:00am February 15, 2023 1:16pm Raimdpcl-Smwn-Dhv3-C-Reji-Jignesh sw 750-625-30 mg tablet (12 sources) Start: 02-15-2023 End: 05-19-2023 Fvvjaoqj-Ldbx-Pau4-C-Reji-Jignesh sw 750-625-30 mg tablet Discontinued 1 {tbl} PO DAILY February 15, 2023 1:14pm May 19, 2023 11:01am SUPPLEMENT Start: 02-15-2023 End: 05-19-2023 Wabphfjn-Zols-Vdj5-C-Reji-Jignesh sw 750-625-30 mg tablet Discontinued 1 {tbl} PO DAILY February 15, 2023 1:14pm May 19, 2023 11:01am gdzjmvoa-tkcuqjf-iijm 149-hyal(GLUCOSAMINE CHONDROITIN COMPLEX ADVANCED 093JE-019VX-287HO-1.65MG TAB) (20 sources) Start: 08-07-2008 End: 10-31-2023 sbtsliux-xvslvcl-vflp 149-hyal(GLUCOSAMINE CHONDROITIN COMPLEX ADVANCED 062VL-194LZ-463EW-1.65MG TAB) one tablet daily 0 08/07/2008 10/31/2023 Discontinued Start: 08-07-2008 glucosam-chond ro-herb 149-hyal(GLUCOSAMINE CHONDROITIN COMPLEX ADVANCED 206LI-191PJ-744ES-1.65MG TAB) one tablet daily 0 08/07/2008 Active [...] 1:00am November 09, 2018 3:00pm lactobacillus acidophilus [id number] unt / pectin 100 mg oral tablet (20 sources) Start: 8 End: 9 take 1 tablet by mouth four times daily Acidophilus-Pectin, Barber 1 TABLET tablet Discontinued 1 {tbl} PO 4 TIMES DAILY July 07, 2018 12:00am October 25, 2018 12:20pm intestinal health Start: 07-07-2018 End: 10-25-2018 take 1 tablet by mouth four times daily Acidophilus-Pectin, Barber Discontinued 1 TABLET PO 4 TIMES DAILY [...] Comment on above: Take 1 capsule by [facility] daily before breakfast. 1/2 hr before meal. [...] (BMI) of 37.0 to 37.9 in adult ([facility]LY [facility])] Onset: 01-25-2025 01-25-2025 Chronic Other nutritional; endocrine; and metabolic disorders (1 source) Morbid (severe) obesity due to excess calories; Translations: [Class 2 severe obesity due to excess calories with serious comorbidity and body mass index (BMI) of 37.0 to 37.9 in adult ([facility])] Onset: 01-25-2025 Chronic Other nutritional; endocrine; and [...] (BMI) of 37.0 to 37.9 in adult ([facility]); Translations: [Class 2 severe obesity due to excess calories with serious comorbidity and body mass index (BMI) of 37.0 to 37.9 in adult ([facility])] Onset: 01-25-2025 Unclassified (1 source) Class 2 [...] Visit Repor ton 04-01-2025 Gastroenterology Visit Report [facility] [address] [place] [address] OFFICE VISIT Date of Service: 04/01/25 MR#: [id number] Acct: [id number] Name: SAHARA MELÉNDEZ Addi Rep #: [id number] : 1945 Provider: Lawrence David DO Age/Sex: 79/F [place] [facility] Status: Signed Intake Vital Signs 02/12/25 08:41 [...] Status: Never (more content not included)... Normal [facility] MR Brain WO contraston 03-28 * [...] dementia protocol and 3-D post-processing using the [employer] software at an independent workstation with concurrent [...] to 1.7; Eulalia 2008; also Vernon 2010). [facility] RADIOLOGY Provider, [facility] Moni [facility] - 03/28/2025 * * *Final Report* * * DATE OF EXAM: Mar 28 2025 12:40PM [facility] 3015 - MRI BRAIN W QUANT WO [...] dementia protocol and 3-D post-processing using the [employer] software at an independent workstation with concurrent [...] = Focal Lesions 2 = Beginning of [place] 3 = Diffuse Involvement of Entire Region Basal Ganglia Lesions: 0 = No Lesions 1 = 1 Focal Lesion (>5mm) 2 = >1 Focal Lesion (>5mm) 3 = Confluent Lesions Vernon Ronoey, et al. The clinical use of structural MRI in Alzheimer disease. Nature Reviews Neurology 6;67 (2010). Eulalia et al. Validation of a fully automated 3D hippocampal segmentation method using subjects with Alzheimer's disease mild cognitive imp (more content not included)... [facility] MR Unspecified body region 3 D post processingon 03-28-2025 * * *Final Report* * * DATE OF EXAM: Mar 28 2025 12:40PM [facility] 7867 - MRI 3D BRAIN QUANT / PROCEDURE REASON: multiple diagnoses * * * * Physician Interpretation * * * * EXAMINATION: MRI BRAIN W QUANT WO IVCON, MRI 3D BRAIN QUANT CLINICAL HISTORY: Confusion, mild cognitive impairment TECHNIQUE: Axial LEONEL FLAIR, LEONEL T2, diffusion and susceptibility weighted imaging without contrast, using the ADNI dementia protocol and 3-D post-processing using the [employer] software at an independent workstation with concurrent [...] to 1.7; Eulalia 2008; also Vernon 2010). [facility] RAD[facility] Provider, Rayna Prieto - 03/28/2025 * * *Final Report* * * DATE OF EXAM: Mar 28 2025 12:40PM [facility] 7867 - MRI 3D BRAIN QUANT / PROCEDURE REASON: multiple diagnoses * * * * Physician Interpretation * * * * EXAMINATION: MRI BRAIN W QUANT WO IVCON, MRI 3D BRAIN QUANT CLINICAL HISTORY: Confusion, mild cognitive impairment TECHNIQUE: Axial LEOENL FLAIR, LEONEL T2, diffusion and susceptibility weighted imaging without contrast, using the ADNI dementia protocol and 3-D post-processing using the [employer] software at an independent workstation with concurrent [...] = Focal Lesions 2 = Beginning of Mar[place] 3 = Diffuse Involvement of Entire Region [...] and elderly cont (more content not included)... [facility] MRI 3D BRAIN QUANTon 03-28-2 025 MRI 3D BRAIN QUANT * * *Final Report* * * DATE OF EXAM: Mar 28 2025 12:40PM [facility] 7867 - MRI 3D BRAIN QUANT / PROCEDURE REASON: multiple diagnoses * * * * Physician Interpretation * * * * EXAMINATION: MRI BRAIN W QUANT WO IVCON, MRI 3D BRAIN QUANT CLINICAL HISTORY: Confusion, mild cognitive impairment TECHNIQUE: Axial LEONEL FLAIR, LEONEL T2, diffusion and susceptibility weighted imaging without contrast, using the ADNI dementia protocol and 3-D post-processing using the [employer] software at an independent workstation with concurrent [...] = Focal Lesions 2 = Beginning of [place] 3 = Diffuse Involvement of Entire Region [...] Asymmetry index (more content not included)... Normal [facility] MRI BRAIN W QUANT WO IVCONon 03-28-2025 MRI BRAIN W QUANT WO IVCON * * *Final Report* * * DATE OF EXAM: Mar 28 2025 12:40PM [facility] 3015 - MRI BRAIN W QUANT WO [...] dementia protocol and 3-D post-processing using the [employer] software at an independent workstation with concurrent [...] = Focal Lesions 2 = Beginning of [place] 3 = Diffuse Involvement of Entire Region [...] Stroke. 32:1318 (more content not included)... Normal [facility] No Panel Informationon 03-28 IMPRESSION: * No [...] = Focal Lesions 2 = Beginning of Mar[place] 3 = Diffuse Involvement of Entire Region [...] results from the analysis charts for details. Pillowcase Maker: CARLI Transcribe Date/Time: Mar 28 2025 12:41P Dictated by : JOHN CUETO MD This examination was interpreted and the report reviewed and electronically signed by: JOHN CUETO MD on Mar 28 2025 1:39PM [facility] RADI[facility] Radiology Study observation (narrative) Gordon wallis [facility] Vani Panel InformationOrdered By: [facility] Provider on 03-28-2025 [facility] Neftali 03-22-2025 [facility] Telephone ([facility]) SAHARA MELÉNDEZ ([id number]) 1945 F NFR Date Time Provider Department 03/22/25 Harmony [facility] During your visit today, we recorded the [...] COMPAZINE (PROCHLORPERAZINE EDISY*09/07/2005 5 - Intolerance Comments: [place] like she was coming out of her [...] of dyspnea (more content not included)... Normal [facility] CNPNon 03-13-2025 CNPN Telephone ([facility] SAHARA MELÉNDEZ ([id number]) 1945 F NFR Date Time Provider Department 03/13/25 [facility]ony [facility] During your visit today, we recorded the following information about you: Briseida Govea 03/22/2025 9:58 AM Addendum Patient has been referred to Dr. Callahan by Dr. Marie for MVR. Briseida Govea 03/22/2025 10:04 AM Addendum [place] PATIENT Records in [employer] Scanned Documents, Echos on [employer]. To NPM Kathleen Brock RN 03/22/2025 2:44 PM Signed Chart reviewed March 22, 2025. File given to Dr. Callahan for his review/plan of care. Sahara Meléndez [id number] 79 year old Diagnosis: Mod MVP, Mod [...] via my chart Referring Provider: CAYETANO MARIE [[id number]] Allergies As of Date: 03/13/2025 Noted Allergy Reaction BENTYL (DICYCLOMINE HCL) 08/13/2013 1 - Mental Status Change CIPROFLOXACIN 05/24/2014 4 - Hives 14 - Other: See Comments Comments: IV Cipro only Pain at IV site COMPAZINE (PROCHLORPERAZINE EDISY*09/07/2005 5 - Intolerance Comments: [place] like she was coming out of her skin DILAUDID (HYDROMORPHONE (BULK)) 09/07/2005 5 - Intolerance E-MYCIN (ERYTHROMYCIN) 09/07/2005 8 - GI Upset LATEX 07/26/2007 2 - Rash Date Reviewed: 02/25/2025 Reviewed by: Shayna Lacey LPN - Fully Assessed Reason for Visit: Referral Information [0593] Pre-Op CTHO Consult [1484] Cardiac Preop Checklist [3997] Primary Visit Diagnosis:Pre-operative cardiovascular examinatio (more content not included)... Normal [facility] Echo Transesophageal (JOSH)on 03-13-2025 Echo Transesophageal (JOSH) [facility] [address] [place] [address] Echo Transesophageal (JOSH) 03/13/25 0902 MR#: [id number] Acct: [id number] Name: SAHARA MELÉNDEZ Rep #: [id number] : 1945 79 From: Cayetano Marie MD Attending Dr: Dr. Cayetano Marie MD Status: REG S DC Ordering Dr: Antonio San SALES AGENT PROTECTIVE SERVICE SALES AGENT PROTECTIVE SERVICE-C Date: 03/13/25 Location: [facility] Sex: F C Admitted: Reason For Study Reason For Study: MITRAL VALVE PROLAPSE Medication JOSH probe 6VT-D (SN [id number]) passed without difficulty. No complications were noted. Cetacaine Topical [place] given X3 orally. Versed 2 mg given [...] Date Dictated: 03/13/25901 Date Transcribed: 03/13/25 125 Pillowcase Maker: Signed Chloe [facility] Transesophageal echocardiogr am reportOrdered By: Cayetano Marie on 03-13-2025 Study report [facility] [address] [place] [address] Echo Transesophageal (JOSH) 03/13/25 09 MR#: [id number] Acct: [id number] Name: SAHARA MELÉNDEZ Rep #:[id number] : 1945 79 From: Cayetano Wallis Attending Dr: MD Brittani Mayer: REG [facility] Ordering Dr: Antonio San NP SALES AGENT PROTECTIVE SERVICE-C Date: 03/13/25 Location: [facility] Sex: F C Admitted: Reason For Study Reason For Study: MITRAL VALVE PROLAPSE Medication JOSH probe 6VT-D (SN [id number]) passed without difficulty. No complications were noted. Cetacaine Topical [place] given X3 orally. Versed 2 mg given [...] 1258 Date _ Cayetano Marie MD CC: SALES AGENT PROTECTIVE SERVICE-C Antonio San; Dr. Cayetano Marie MD; Dr. Rosendo Brown MD ~ Date Dictated: 03/13/25901 Date Transcribed: 03/13/251257 Pillowcase Maker: Signed [facility] Work Phone: Absolute lymphocyte countOrd ered By: Antonio San on 03-07-2025 Lymphocytes Auto (Unsp spec) [#/Vol] 1.59 10*3/uL 0.83-4.51 [facility] Absolute neutrophil countOrd ered By: Antonio San on 03-07-2025 Neutrophils (Bld) [#/Vol] 4.6 10*3/uL 2.0-7.7 [facility] Anion gap in Serum or Plasma Ordered By: Antonio San on 03-07-2025 Anion gap [Moles/Vol] 12 mmol/L 5-15 [facility] Automated lymphocyte count a s percentage of total leukocytesOrdered By: Antonio San on 03-07-2025 Lymphocytes/100 WBC Auto (Unsp spec) 22.6 % 19-41 [facility] BUN/creatinine ratioOrdered By: Antonio San on 03-07-2025 Urea nitrogen/Creatinine [Mass ratio] 12.8 mg/mg 10- [facility] Basic Metabolic Profile (BMP )on 03-07-2025 BUN/CRE 12.8 RATIO Normal - [facility] Comment on above: Performed By: #### L 500.6465, L500.0009 #### [facility] Laboratory [facility] [place], [address] Calcium [Mass/Vol] 10.0 mg/dL Normal 7.6-11.0 [facility] Comment on above: Performed By: #### L 500.3400, L500.4100 #### [facility] Laboratory [address] [place], [address] Chloride [Moles/Vol] 103 mmol/L Normal 98-108 [facility] Comment on above: Performed By: #### L 500.3400, L500.4100 #### [facility] [address] [place], [address] CO2 [Moles/Vol] 25.0 mmol/L Normal 21.0-32.0 [facility] Comment on above: Performed By: #### L 500.3400, L500.4100 #### [facility] [address] [place], [address] Creatinine [Mass/Vol] 1.09 mg/dL Normal 0.70-1.20 [facility] Comment on above: Performed By: #### L 500.3400, L500.4100 #### [facility] [address] [place], [address] GAP 12 Normal 5-15 [facility] Comment on above: Performed By: #### L 500.3400, L500.4100 #### [facility] [address] [place], [address] GFR/1.73 sq M.predicted among non-blacks MDRD (S/P/Bld) [Vol rate/Area] 52 mL/min/{1.73_m2} Low >60 [facility] Comment on above: Result Comment: mL/m in/1.73m2 CKD-EPI Creatinine Equation (2020) Performed By: #### L 500.3400, L500.4100 #### [facility] [address] [place], [address] Glucose [Mass/Vol] 133 mg/dL High 70-99 [facility] Comment on above: Performed By: #### L 500.3400, L500.4100 #### [facility] [address] [place], [address] Potassium [Moles/Vol] 4.4 mmol/L Normal 3.3-5.1 [facility] Comment on above: Performed By: #### L 500.3400, L500.4100 #### [facility] [address] [place], [address] Sodium [Moles/Vol] 141 mmol/L Normal 133-145 [facility] Comment on above: Performed By: #### L 500.3400, L500.4100 #### [facility] [address] [place], [address] Urea nitrogen [Mass/Vol] 14 mg/dL Normal 4-19 [facility] Comment on above: Performed By: #### L 500.3400, L500.4100 #### [facility] [address] [place], [address] Basophil percentageOrdered B y: Antonio Mena on 03-07-2025 Basophils/100 WBC (Bld) 0.7 % 0-[address] [facility] CBC W/Diff, Automatedon 02-11 Absolute Lymph 1.59 X10 3/uL Normal 0.83-4.51 [facility] Comment on above: Performed By: #### L 500.3400, L500.4100 #### [facility] [address] [place], [address] Absolute Neut 4.6 X10 3/uL Normal 2.0-7.7 [facility] Comment on above: Performed By: #### L 500.3400, L500.4100 #### [facility] [address] [place], [address] Basophils/100 WBC (Bld) 0.7 % Normal 0-[address] [facility] Comment on above: Performed By: #### L 500.3400, L500.4100 #### [facility] [address] [place], [address] Eosinophils/100 WBC (Bld) 2.3 % Normal 0-5 [facility] Comment on above: Performed By: #### L 500.3400, L500.4100 #### [facility] [address] [place], [address] Erythrocyte distribution width (RBC) [Ratio] 14.6 % Normal 11.6-14.6 [facility] Comment on above: Performed By: #### L 500.3400, L500.4100 #### [facility] [address] [place], [address] Hematocrit (Bld) [Volume fraction] 41.8 % Normal 37-47 [facility] Comment on above: Performed By: #### L 500.3400, L500.4100 #### [facility] [address] [place], [address] Hemoglobin (Bld) [Mass/Vol] 13.6 g/dL Normal 12.0-15.0 [facility] Comment on above: Performed By: #### L 500.3400, L500.4100 #### [facility] [address] [place], [address] IG% 0.300 Normal 0.0-0.9 [facility] Comment on above: Result Comment: IG% - Immature Granulocytes (promyelocytes, myelocytes and metamyelocytes) > 1% indicates that a LEFT SHIFT is Present. Performed By: #### L 500.3400, L500.4100 #### [facility] [address] [place], [address] Lymphocytes/100 WBC (Bld) 22.6 % Normal 19-41 [facility] Comment on above: Performed By: #### L 500.3400, L500.4100 #### [facility] [address] [place], [address] MCH (RBC) [Entitic mass] 30.3 pg Normal 27.0-32.0 [facility] Comment on above: Performed By: #### L 500.3400, L500.4100 #### [facility] [address] [place], [address] MCHC (RBC) [Mass/Vol] 32.5 g/dL Normal 32-36 [facility] Comment on above: Performed By: #### L 500.3400, L500.4100 #### [facility] [address] [place], [address] MCV (RBC) [Entitic vol] 93.1 fL Normal 81-[address] [facility] Comment on above: Performed By: #### L 500.3400, L500.4100 #### [facility] [address] [place], [address] Monocytes/100 WBC (Bld) 9.2 % Normal 0-10 [facility] Comment on above: Performed By: #### L 500.3400, L500.4100 #### [facility] [address] [place], [address] Neutrophils/100 WBC (Bld) 64.9 % Normal 47-70 [facility] Comment on above: Performed By: #### L 500.3400, L500.4100 #### [facility] [address] [place], [address] Nucleated RBC (Bld) [#/Vol] 0 10*3/uL Normal 0-5 [facility] Comment on above: Performed By: #### L 500.3400, L500.4100 #### [facility] [address] [place], [address] Platelet mean volume (Bld) [Entitic vol] 10.6 fL Normal 6.2-12.0 [facility] Comment on above: Performed By: #### L 500.3400, L500.4100 #### [facility] [address] [place], [address] Platelets (Bld) [#/Vol] 243 10*3/uL Normal 150-450 [facility] Comment on above: Performed By: #### L 500.3400, L500.4100 #### [facility] [address] [place], [address] RBC (Bld) [#/Vol] 4.49 10*6/uL Normal 4.2-5.4 [facility] Comment on above: Performed By: #### L 500.3400, L500.4100 #### [facility] [address] [place], [address] RDW SD 49.7 fl High 35.1-43.9 [facility] Comment on above: Performed By: #### L 500.3400, L500.4100 #### [facility] [address] [place], [address] WBC (Bld) [#/Vol] 7.1 10*3/uL Normal 4.4-11.0 [facility] Comment on above: Performed By: #### L 500.3400, L500.4100 #### [facility] [address] [place], [address] Carbon dioxide, total [Moles /volume] in Central venous bloodOrdered By: Antonio San on 03-07-2025 CO2 [Moles/Vol] 25.0 mmol/L 21.0-32.0 [facility] Chloride assayOrdered By: Barbara San on 03-07-2025 Chloride [Moles/Vol] 103 mmol/L 98-108 [facility] Eosinophil percentageOrdered By: Antonio Sna on 03-07-2025 Eosinophils/100 WBC (Bld) 2.3 % 0-5 [facility] Erythrocyte distribution wid th ratioOrdered By: Antonio San on 03-07-2025 Erythrocyte distribution width (RBC) [Ratio] 14.6 % 11.6-14.6 [facility] Erythrocyte distribution wid th standard deviationOrdered By: Antonio San on 03-07-2025 Erythrocyte distribution width (RBC) [Ratio] 49.7 fl High 35.1-43.9 [facility] Glomerular filtration rate ( GFR) estimation/1.73 sq m using serum, plasma, or whole bOrdered By: Antonio San on 03-07-2025 GFR/1.73 sq M.predicted among non-blacks MDRD (S/P/Bld) [Vol rate/Area] 52 mL/min/{1.73_m2} Low >60 [facility] Comment on above: mL/min/1.73m2 CKD-EP I Creatinine Equation (2020) Hematocrit Auto (Bld) [Volum e fraction]Ordered By: Antonio San on 03-07-2025 Hematocrit (Bld) [Volume fraction] 41.8 % 37-47 [facility] Hemoglobin measurementOrdere d By: Antonio San on 03-07-2025 Hemoglobin (Bld) [Mass/Vol] 13.6 g/dL 12.0-15.0 [facility] Immature granulocytes/100 WB C Auto (Bld)Ordered By: Antonio San on 03-07-2025 Immature granulocytes/100 WBC (Bld) 0.300 % 0.0-0.9 [facility] Comment on above: IG% - Immature Granu locytes (promyelocytes, myelocytes and metamyelocytes) > 1% indicates that a LEFT SHIFT is Present. MCV (mean corpuscular volume ) determinationOrdered By: Antonio San on 03-07-2025 MCV (RBC) [Entitic vol] 93.1 fL 81-[address] [facility] Mean corpuscular hemoglobin (MCH) determinationOrdered By: Antonio San 03-07-2025 MCH (RBC) [Entitic mass] 30.3 pg 27.0-32.0 [facility] Mean corpuscular hemoglobin concentration (MCHC) determinationOrdered By: Antonio San 03-07-2025 MCHC (RBC) [Mass/Vol] 32.5 g/dL 32-36 [facility] Mean platelet volume determi nationOrdered By: Antonio aSn on 03-07-2025 Platelet mean volume (Bld) [Entitic vol] 10.6 fL 6.2-12.0 [facility] Monocyte percentageOrdered B y: Antonio San on 03-07-2025 Monocytes/100 WBC (Bld) 9.2 % 0-[address] [facility] Neutrophil percentageOrdered By: Anotnio San on 03-07-2025 Neutrophils/100 WBC (Bld) 64.9 % 47-70 [facility] Nucleated red blood cell per centageOrdered By: Antonio San on 03-07-2025 Nucleated RBC/100 WBC (Bld) [Ratio] 0 % 0-5 [facility] Platelet countOrdered By: Barbara San on 03-07-2025 Platelets (Bld) [#/Vol] 243 10*3/uL 150-450 [facility] Potassium measurement (mass/ volume)Ordered By: Antonio San on 03-07-2025 Potassium (Unsp spec) [Mass/Vol] 4.4 mmol/L 3.3-5.1 [facility] RBC Auto (Bld) [#/Vol]Ordere d By: Antonio San on 03-07-2025 RBC (Bld) [#/Vol] 4.49 10*6/uL 4.2-5.4 [facility] Serum creatinine measurement (mass/volume)Ordered By: Antonio San on 03-07-2025 Creatinine [Mass/Vol] 1.09 mg/dL 0.70-1.20 [facility] Serum glucose measurement (m ass/volume)Ordered By: Antonio San on 03-07-2025 Glucose [Mass/Vol] 133 mg/dL High 70-99 [facility] Serum or plasma calcium dahlia urement (mass/volume)Ordered By: Antonio San on 03-07-2025 Calcium [Mass/Vol] 10.0 mg/dL 7.6-11.0 [facility] Serum or plasma urea nitroge n measurement (mass/volume)Ordered By: Antonio San on 03-07-2025 Urea nitrogen [Mass/Vol] 14 mg/dL 4-19 [facility] Sodium levelOrdered By: Antonio San on 03-07-2025 Sodium [Moles/Vol] 141 mmol/L 133-145 [facility] White blood cell (WBC) count Ordered By: Antonio San on 03-07-2025 WBC (Bld) [#/Vol] 7.1 10*3/uL 4.4-11.0 [facility] CNOVon 02-25-2025 CNOV Office Visit (FAMPWS ) SAHARA MELÉNDEZ ([id number]) 1945 F NFR Date Time Provider Department 02/25/25 9:40 AM [facility] today, we recorded the following information about you: Pulse Blood pressure Weight 64/minute 124/70 90.3 kg Rosendo Brown MD 02/25/2025 10:12 AM Signed - Take metoprolol at the higher dose your pageant director prescribed. - Take furosemide (Lasix) at the lower dose your pageant director prescribed. - Weigh yourself daily; if you [...] eyelid and schedule an ophthalmology appointment at [facility] to assess the remaining stye. Rosendo Brown MD 02/25/2025 12:51 PM Signed Sahara Meléndez is a 79-year-old female with a history of CHF, atrial fibrillation, and memory issues, presenting for follow-up after a recent hospitalization. HPI CHF and Atrial Fibrillation: - Hospitalized at [facility] from 01/17 to 01/19 for CHF [...] to follow up with Dr. David, her broadcast operations director. Stye: - Previous stye treated with Blef-10 eye drops; reports improvement but still feels a palpable lump on the right upper eyelid. - Plans to follow up with [facility]. MEDICATIONS: Current Outpatient Medications Medication Sig [...] Pain at IV site Compazine [Prochlor* Intolerance [place] like she was coming out of her [...] (HCC) 5 (more content not included)... Normal [facility] Echo, Limited Studyon 2024 Echo, Limited Study [facility] [address] [place] [address] Echo, Limited Study 02/18/25 0959 MR#: [id number] Acct: [id number] Name: SAHARA MELÉNDEZ Rep #: [id number] : 1945 79 From: Cayetano Marie MD Attending Dr: ALBERTO BourneC Status: DEP CLI Ordering Dr: Antonio San SALES AGENT PROTECTIVE SERVICE SALES AGENT PROTECTIVE SERVICE-C Date: 02/18/25 Location: [facility] Sex: F C Admitted: Reason For Study [...] MD Date Dictated: 02/18/2559 Date Transcribed: 02/24/251950 Pillowcase Maker: Signed Normal [facility] Cardiology Visit Reporton Cardiology Visit Report [facility] [address] [place] [address] OFFICE VISIT Date of Service: 02/12/25 MR#: [id number] Acct: [id number] Name: SAHARA MELÉNDEZ Rep #: [id number] : 1945 Provider: BRADFORD urbina Age/Sex: 79/F Location: [facility] Status: Signed HPI HPI History of [...] and negative for ischemia. 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 Normal [facility] Absolute lymphocyte countOrd ered By: Lawrence David on 02-05-2025 Lymphocytes Auto (Unsp spec) [#/Vol] 1.75 10*3/uL 0.83-4.51 [facility] Absolute neutrophil countOrd ered By: Lawrencelorin David on 02-05-2025 Neutrophils (Bld) [#/Vol] 6.8 10*3/uL 2.0-7.7 [facility] Anion gap in Serum or Plasma Ordered By: Lawrencelorin David on 02-05-2025 Anion gap [Moles/Vol] 12 mmol/L 5-15 [facility] Automated lymphocyte count a s percentage of total leukocytesOrdered By: Lawrence David on 02-05-2025 Lymphocytes/100 WBC Auto (Unsp spec) 18.1 % Low 19-41 [facility] BUN/creatinine ratioOrdered By: Lawrencerita David on 02-05-2025 Urea nitrogen/Creatinine [Mass ratio] 20.6 mg/mg High 10-20 [facility] Basophil percentageOrdered B y: Lawrence David on 02-05-2025 Basophils/100 WBC (Bld) 0.5 % 0-[address] [facility] Bilirubin, totalOrdered By: Lawrence David on 02-05-2025 Bilirubin [Mass/Vol] 0.48 mg/dL 0.00-1.30 [facility] CBC W/Diff, Automatedon 01-11 Absolute Lymph 1.75 X10 3/uL Normal 0.83-4.51 [facility] Comment on above: Performed By: #### L 501.5200, L501.9520, L501.2300, L500.4050, L100.0100 #### [facility] [address] [place], [place], [id number] Absolute Neut 6.8 X10 3/uL Normal 2.0-7.7 [facility] Comment on above: Performed By: #### L 501.5200, L501.9520, L501.2300, L500.4050, L100.0100 #### [facility] [address] [place], [address] Basophils/100 WBC (Bld) 0.5 % Normal 0-[address] [facility] Comment on above: Performed By: #### L 501.5200, L501.9520, L501.2300, L500.4050, L100.0100 #### [facility] [address] [place], [address] Eosinophils/100 WBC (Bld) 0.8 % Normal 0-5 [facility] Comment on above: Performed By: #### L 501.5200, L501.9520, L501.2300, L500.4050, L100.0100 #### [facility] [address] [place], [address] Erythrocyte distribution width (RBC) [Ratio] 14.7 % High 11.6-14.6 [facility] Comment on above: Performed By: #### L 501.5200, L501.9520, L501.2300, L500.4050, L100.0100 #### [facility] [address] [place], [address] Hematocrit (Bld) [Volume fraction] 45.5 % Normal 37-47 [facility] Comment on above: Performed By: #### L 501.5200, L501.9520, L501.2300, L500.4050, L100.0100 #### [facility] [address] [place], [address] Hemoglobin (Bld) [Mass/Vol] 14.7 g/dL Normal 12.0-15.0 [facility] Comment on above: Performed By: #### L 501.5200, L501.9520, L501.2300, L500.4050, L100.0100 #### [facility] [address] [place], [address] IG% 0.300 Normal 0.0-0.9 [facility] Comment on above: Result Comment: IG% - Immature Granulocytes (promyelocytes, myelocytes and metamyelocytes) > 1% indicates that a LEFT SHIFT is Present. Performed By: #### L 501.5200, L501.9520, L501.2300, L500.4050, L100.0100 #### [facility] [address] [place], [address] Lymphocytes/100 WBC (Bld) 18.1 % Low 19-41 [facility] Comment on above: Performed By: #### L 501.5200, L501.9520, L501.2300, L500.4050, L100.0100 #### [facility] [address] [place], [address] MCH (RBC) [Entitic mass] 29.6 pg Normal 27.0-32.0 [facility] Comment on above: Performed By: #### L 501.5200, L501.9520, L501.2300, L500.4050, L100.0100 #### [facility] [address] [place], [address] MCHC (RBC) [Mass/Vol] 32.3 g/dL Normal 32-36 [facility] Comment on above: Performed By: #### L 501.5200, L501.9520, L501.2300, L500.4050, L100.0100 #### [facility] [address] [place], [address] MCV (RBC) [Entitic vol] 91.5 fL Normal 81-99 [facility] Comment on above: Performed By: #### L 501.5200, L501.9520, L501.2300, L500.4050, L100.0100 #### [facility] [address] [place], [address] Monocytes/100 WBC (Bld) 9.9 % Normal 0-[address] [facility] Comment on above: Performed By: #### L 501.5200, L501.9520, L501.2300, L500.4050, L100.0100 #### [facility] [address] [place], [address] Neutrophils/100 WBC (Bld) 70.4 % High 47-70 [facility] Comment on above: Performed By: #### L 501.5200, L501.9520, L501.2300, L500.4050, L100.0100 #### [facility] [address] [place], [address] Nucleated RBC (Bld) [#/Vol] 0 10*3/uL Normal 0-5 [facility] Comment on above: Performed By: #### L 501.5200, L501.9520, L501.2300, L500.4050, L100.0100 #### [facility] [address] [place], [address] Platelet mean volume (Bld) [Entitic vol] 11.0 fL Normal 6.2-12.0 [facility] Comment on above: Performed By: #### L 501.5200, L501.9520, L501.2300, L500.4050, L100.0100 #### [facility] [address] [place], [address] Platelets (Bld) [#/Vol] 267 10*3/uL Normal 150-450 [facility] Comment on above: Performed By: #### L 501.5200, L501.9520, L501.2300, L500.4050, L100.0100 #### [facility] [address] [place], [address] RBC (Bld) [#/Vol] 4.97 10*6/uL Normal 4.2-5.4 [facility] Comment on above: Performed By: #### L 501.5200, L501.9520, L501.2300, L500.4050, L100.0100 #### [facility] [address] [place], [address] RDW SD 48.8 fl High 35.1-43.9 [facility] Comment on above: Performed By: #### L 501.5200, L501.9520, L501.2300, L500.4050, L100.0100 #### [facility] [address] [place], [address] WBC (Bld) [#/Vol] 9.7 10*3/uL Normal 4.4-11.0 [facility] Comment on above: Performed By: #### L 501.5200, L501.9520, L501.2300, L500.4050, L100.0100 #### [facility] [address] [place], [address] [facility] Telephone (TIA) SAHARA MELÉNDEZ ([id number]) 1945 F NFR Date Time Provider Department 02/05/[facility] During your visit today, we recorded the [...] would have to be cleared by her pageant director. +IFOBT result, OV note from 01/11/25 and [...] COMPAZINE (PROCHLORPERAZINE EDISY*09/07/2005 5 - Intolerance Comments: [place] like she was coming out of her skin DILAUDID (HYDROMORPHONE (BULK)) 09/07/2005 5 - Intolerance E-MYCIN (ERYTHROMYCIN) 09/07/2005 8 - GI Upset LATEX 07/26/2007 2 - Rash Date Reviewed: 01/25/2025 Reviewed by: Shayna Lacey LPN - Fully Assessed Reason for Visit: positive IFOBT referral [Other] Patient Update [1234] Primary Visit Diagnosis:Blood in stool [K92.1] Order(s):CONSULT TO GASTROENTEROLOGY [9010] Order #: [id number]: 1 FUTURE Prescriptions as of 02/05/2025 - [...] Other gas (more content not included)... [facility] SAHARA MELÉNDEZ ([id number]) 1945 F NFR Date Time Provider Department 02/05/25 [facility] During your visit today, we recorded the [...] mitral valve, has appt with Antonio Espinosa SALES AGENT PROTECTIVE SERVICE [facility], to find [...] COMPAZINE (PROCHLORPERAZINE EDISY*09/07/2005 5 - Intolerance Comments: [place] like she was coming out of her skin DILAUDID (HYDROMORPHONE (BULK)) 09/07/2005 5 - Intolerance E-MYCIN (ERYTHROMYCIN) 09/07/2005 8 - GI Upset LATEX 07/26/2007 2 - Rash Date Reviewed: 01/25/2025 Reviewed by: Shayna Lacey LPN - Fully Assessed Reason for Visit: Patient Question [3228] Cmt: regarding upcoming brain MRI and follow [...] 11/11/2016 Migr (more content not included)... Normal [facility] Carbon dioxide, total [Moles /volume] in Central venous bloodOrdered By: Lawrence Friend on 02-05-2025 CO2 [Moles/Vol] 25.5 mmol/L 21.0-32.0 [facility] Chloride assayOrdered By: Ra marks Friend on 02-05-2025 Chloride [Moles/Vol] 103 mmol/L 98-108 [facility] Comprehensive Metabolic Prof ilon 02-05-2025 Albumin [Mass/Vol] 4.1 g/dL Normal 3.4-4.8 [facility] Comment on above: Performed By: #### L 501.5200, L501.9520, L501.2300, L500.4050, L100.0100 #### [facility] [address] [place], [address] Albumin/Globulin [Mass ratio] 1.2 {ratio} Normal 0.9-2.4 [facility] Comment on above: Performed By: #### L 501.5200, L501.9520, L501.2300, L500.4050, L100.0100 #### [facility] [address] [place], [address] ALK PHOS 83 U/L Normal 35-104 [facility] Comment on above: Performed By: #### L 501.5200, L501.9520, L501.2300, L500.4050, L100.0100 #### [facility] [address] [place], [address] ALT [Catalytic activity/Vol] 18 U/L Normal <=34 [facility] Comment on above: Performed By: #### L 501.5200, L501.9520, L501.2300, L500.4050, L100.0100 #### [facility] [address] [place], [address] AST [Catalytic activity/Vol] 23 U/L Normal <=31 [facility] Comment on above: Performed By: #### L 501.5200, L501.9520, L501.2300, L500.4050, L100.0100 #### [facility] [address] [place], [address] Bilirubin [Mass/Vol] 0.48 mg/dL Normal 0.00-1.30 [facility] Comment on above: Performed By: #### L 501.5200, L501.9520, L501.2300, L500.4050, L100.0100 #### [facility] [address] [place], [address] BUN/CRE 20.6 RATIO High 10-20 [facility] [facility] Comment on above: Performed By: #### L 501.5200, L501.9520, L501.2300, L500.4050, L100.0100 #### [facility] [address] [place], [address] Calcium [Mass/Vol] 10.0 mg/dL Normal 7.6-11.0 [facility] Comment on above: Performed By: #### L 501.5200, L501.9520, L501.2300, L500.4050, L100.0100 #### [facility] [address] [place], [address] Chloride [Moles/Vol] 103 mmol/L Normal 98-108 [facility] Comment on above: Performed By: #### L 501.5200, L501.9520, L501.2300, L500.4050, L100.0100 #### [facility] [address] [place], [address] CO2 [Moles/Vol] 25.5 mmol/L Normal 21.0-32.0 [facility] Comment on above: Performed By: #### L 501.5200, L501.9520, L501.2300, L500.4050, L100.0100 #### [facility] [address] [place], [address] Creatinine [Mass/Vol] 0.93 mg/dL Normal 0.70-1.20 [facility] Comment on above: Performed By: #### L 501.5200, L501.9520, L501.2300, L500.4050, L100.0100 #### [facility] [address] [place], [address] GAP 12 Normal 5-15 [facility] Comment on above: Performed By: #### L 501.5200, L501.9520, L501.2300, L500.4050, L100.0100 #### [facility] [address] [place], [address] GFR/1.73 sq M.predicted among non-blacks MDRD (S/P/Bld) [Vol rate/Area] 63 mL/min/{1.73_m2} Normal >60 [facility] Comment on above: Result Comment: mL/m in/1.73m2 CKD-EPI Creatinine Equation (2020) Performed By: #### L 501.5200, L501.9520, L501.2300, L500.4050, L100.0100 #### [facility] [address] [place], [address] Globulin (S) [Mass/Vol] 3.4 g/dL Normal 2.2-4.[address] [facility] Comment on above: Performed By: #### L 501.5200, L501.9520, L501.2300, L500.4050, L100.0100 #### [facility] [address] [place], [address] Glucose [Mass/Vol] 112 mg/dL High 70-99 [facility] Comment on above: Performed By: #### L 501.5200, L501.9520, L501.2300, L500.4050, L100.0100 #### [facility] [address] [place], [address] Potassium [Moles/Vol] 4.4 mmol/L Normal 3.3-5.1 [facility] Comment on above: Performed By: #### L 501.5200, L501.9520, L501.2300, L500.4050, L100.0100 #### [facility] [address] [place], [address] Sodium [Moles/Vol] 141 mmol/L Normal 133-145 [facility] Comment on above: Performed By: #### L 501.5200, L501.9520, L501.2300, L500.4050, L100.0100 #### [facility] [address] [place], [address] T PROT 7.5 g/dL Normal 5.9-8.4 [facility] Comment on above: Performed By: #### L 501.5200, L501.9520, L501.2300, L500.4050, L100.0100 #### [facility] [address] [place], [place], [address] Urea nitrogen [Mass/Vol] 19 mg/dL Normal 4-19 [facility] Comment on above: Performed By: #### L 501.5200, L501.9520, L501.2300, L500.4050, L100.0100 #### [facility] [address] [place], [place], [address] Eosinophil percentageOrdered By: Lawrence David on 02-05-2025 Eosinophils/100 WBC (Bld) 0.8 % 0-5 [facility] Erythrocyte distribution wid th ratioOrdered By: Lawrence David on 02-05-2025 Erythrocyte distribution width (RBC) [Ratio] 14.7 % High 11.6-14.6 [facility] Erythrocyte distribution wid th standard deviationOrdered By: Lawrence David on 02-05-2025 Erythrocyte distribution width (RBC) [Ratio] 48.8 fl High 35.1-43.9 [facility] Glomerular filtration rate ( GFR) estimation/1.73 sq m using serum, plasma, or whole bOrdered By: Lawrence David on 02-05-2025 GFR/1.73 sq M.predicted among non-blacks MDRD (S/P/Bld) [Vol rate/Area] 63 mL/min/{1.73_m2} >60 [facility] Comment on above: mL/min/1.73m2 CKD-EP I Creatinine Equation (2020) Hematocrit Auto (Bld) [Volum e fraction]Ordered By: Lawrence David on 02-05-2025 Hematocrit (Bld) [Volume fraction] 45.5 % 37-47 [facility] Hemoglobin measurementOrdere d By: Lawrence David on 02-05-2025 Hemoglobin (Bld) [Mass/Vol] 14.7 g/dL 12.0-15.0 [facility] Immature granulocytes/100 WB C Auto (Bld)Ordered By: Lawrence David on 02-05-2025 Immature granulocytes/100 WBC (Bld) 0.300 % 0.0-0.9 [facility] Comment on above: IG% - Immature Granu locytes (promyelocytes, myelocytes and metamyelocytes) > 1% indicates that a LEFT SHIFT is Present. Laboratory - Chemistry and C hemistry - challengeOrdered By: Lawrence David on 02-05-2025 AST [Catalytic activity/Vol] 23 U/L <32 [facility] MCV (mean corpuscular volume ) determinationOrdered By: Lawrence David on 02-05-2025 MCV (RBC) [Entitic vol] 91.5 fL 81-[address] [facility] Mean corpuscular hemoglobin (MCH) determinationOrdered By: Lawrence David on 02-05-2025 MCH (RBC) [Entitic mass] 29.6 pg 27.0-32.0 [facility] Mean corpuscular hemoglobin concentration (MCHC) determinationOrdered By: Lawrence David on 02-05-2025 MCHC (RBC) [Mass/Vol] 32.3 g/dL 32-36 [facility] Mean platelet volume determi nationOrdered By: Lawrence David on 02-05-2025 Platelet mean volume (Bld) [Entitic vol] 11.0 fL 6.2-12.0 [facility] Monocyte percentageOrdered B y: Lawrence David on 02-05-2025 Monocytes/100 WBC (Bld) 9.9 % 0-[address] [facility] Neutrophil percentageOrdered By: Lawrence David on 02-05-2025 Neutrophils/100 WBC (Bld) 70.4 % High 47-70 [facility] Nucleated red blood cell per centageOrdered By: Lawrence David on 02-05-2025 Nucleated RBC/100 WBC (Bld) [Ratio] 0 % 0-5 [facility] Platelet countOrdered By: Ra kendrick David on 02-05-2025 Platelets (Bld) [#/Vol] 267 10*3/uL 150-450 [facility] Potassium measurement (mass/ volume)Ordered By: Lawrence Daivd on 02-05-2025 Potassium (Unsp spec) [Mass/Vol] 4.4 mmol/L 3.3-5.1 [facility] RBC Auto (Bld) [#/Vol]Ordere d By: Lawrence David on 02-05-2025 RBC (Bld) [#/Vol] 4.97 10*6/uL 4.2-5.4 [facility] Serum creatinine measurement (mass/volume)Ordered By: Lawrence David on 02-05-2025 Creatinine [Mass/Vol] 0.93 mg/dL 0.70-1.20 [facility] Serum globulin measurementOr dered By: Lawrence David on 02-05-2025 Globulin (S) [Mass/Vol] 3.4 g/dL 2.2-4.[address] [facility] Serum glucose measurement (m ass/volume)Ordered By: Lawrence David on 02-05-2025 Glucose [Mass/Vol] 112 mg/dL High 70-99 [facility] Serum or plasma alanine gonsalves otransferase (ALT) measurementOrdered By: Lawrence David on 02-05-2025 ALT [Catalytic activity/Vol] 18 U/L <35 [facility] Serum or plasma albumin dahlia urement (mass/volume)Ordered By: Lawrence David on 02-05-2025 Albumin [Mass/Vol] 4.1 g/dL 3.4-4.8 [facility] Serum or plasma albumin/glob ulin mass ratioOrdered By: Lawrence David on 02-05-2025 Albumin/Globulin [Mass ratio] 1.2 {ratio} 0.9-2.4 [facility] Serum or plasma alkaline abdullahi sphatase measurementOrdered By: Lawrence David on 02-05-2025 ALP [Catalytic activity/Vol] 83 U/L 35-104 [facility] Serum or plasma calcium dahlia urement (mass/volume)Ordered By: Lawrence David on 02-05-2025 Calcium [Mass/Vol] 10.0 mg/dL 7.6-11.0 [facility] Serum or plasma urea nitroge n measurement (mass/volume)Ordered By: Lawrencekendrick David on 02-05-2025 Urea nitrogen [Mass/Vol] 19 mg/dL 4-19 [facility] Sodium levelOrdered By: David allenrita Friend on 02-05-2025 Sodium [Moles/Vol] 141 mmol/L 133-145 [facility] Total proteinOrdered By: Jamal navarreterita Friend on 02-05-2025 Protein [Mass/Vol] 7.5 g/dL 5.9-8.4 [facility] White blood cell (WBC) count Ordered By: Lawrencerita David on 02-05-2025 WBC (Bld) [#/Vol] 9.7 10*3/uL 4.4-11.0 [facility] CNPNon 02-01-2025 CNPN Telephone (FAMPWS) MEDHATSAHARA ([id number]) 1945 F NFR Date Time Provider Department 02/01/[facility] During your visit today, we recorded the [...] COMPAZINE (PROCHLORPERAZINE EDISY*09/07/2005 5 - Intolerance Comments: [place] like she was coming out of her skin DILAUDID (HYDROMORPHONE (BULK)) 09/07/2005 5 - Intolerance E-MYCIN (ERYTHROMYCIN) 09/07/2005 8 - GI Upset LATEX 07/26/2007 2 - Rash Date Reviewed: 01/25/2025 Reviewed by: Shayna Lacey LPN - Fully Assessed Reason for Visit: Patient Update [1234] Primary Visit Diagnosis:Hordeolum externum, unspecified laterality [H00.019] Order(s):CONSULT TO OPHTHALMOLOGY [9024] Order #: [id number]: 1 FUTURE Prescriptions as of 02/01/2025 - [...] accident [V89.2X (more content not included)... Normal [facility] CNPNon 01-29-2025 CNPN Telephone (FAMPWS) SAHARA MELÉNDEZ ([id number]) 1945 F NFR Date Time Provider Department 01/29/25 ROSENDO BROWN [facility] During your visit today, we recorded [...] COMPAZINE (PROCHLORPERAZINE EDISY*09/07/2005 5 - Intolerance Comments: [place] like she was coming out of her skin DILAUDID (HYDROMORPHONE (BULK)) 09/07/2005 5 - Intolerance E-MYCIN (ERYTHROMYCIN) 09/07/2005 8 - GI Upset LATEX 07/26/2007 2 - Rash Date Reviewed: 01/25/2025 Reviewed by: Shayna Lacey LPN - Fully Assessed Reason for Visit: Results [95] Cmt: IFOBT Primary Visit Diagnosis:Blood in stool [K92.1] Order(s):CONSULT TO GENERAL SURGERY [9011] Order #: [id number]: 1 FUTURE Prescriptions as of 02/05/2025 - [...] dorsal foot/ankl*08/12/2011 (more content not included)... Normal [facility] Cardiology Visit Reporton Cardiology Visit Report [facility] [address] [place] [address] OFFICE VISIT Date of Service: 01/28/25 MR#: [id number] Acct: [id number] Name: SAHARA MELÉNDEZ Rep #: [id number] : 1945 Provider: BRADFORD urbina Age/Sex: 79/F Location[facility] Status: Signed HPI HPI History of [...] and negative for ischemia. She presented to [facility] on 01/17/2025 for ongoing shortness of [...] ECG Intake Visit Reasons: 1 W FU Lining Brusher Required: No Accompanied by: Is patient in [...] PRN 01/10 (more content not included)... Normal [facility] Hemoccult Stl Ql IAon 2024 Lower GI hemoglobin IA Ql (Stl) Positive Abnormal Negative [facility] Comment on above: Order Comment: Speci men Type: STOOL SPECIMENOrdering Facility: [facility] Address: [address] [place] [address] Performed By: #### 2 9771-3 ####[facility] LABCLIA [id number] [address] [place] [address] [place] Basic metabolic 2000 panelon 01-25-2025 Anion gap [Moles/Vol] 11 mmol/L Normal 8-15 [facility] Comment on above: Order Comment: Speci men Type: BLOOD SPECIMENOrdering Facility: [facility] Address: [address] [place], [place] [address] Performed By: #### 2 4321-2, 6-4, 83305-9 ####[facility] LABCLIA [id number] [place] [address] [place] Calcium [Mass/Vol] 10.0 mg/dL Normal 8.5-10.2 [facility] Comment on above: Order Comment: Speci men Type: BLOOD SPECIMENOrdering Facility: [facility] Address: [address] [place] [address] Performed By: #### 2 4321-2, 2275-4, 32390-3 ####[facility] LABCLIA [id number] [place] [address] [place] Chloride [Moles/Vol] 103 mmol/L Normal 98-107 [facility] Comment on above: Order Comment: Speci men Type: BLOOD SPECIMENOrdering Facility: [facility] Address: [address] [place], [place] [address] Performed By: #### 2 4321-2, 2275-4, 98647-3 ####[facility] LABCLIA [id number] [place] [address] [place] CO2 [Moles/Vol] 25 mmol/L Normal 22-30 [facility] Comment on above: Order Comment: Speci men Type: BLOOD SPECIMENOrdering Facility: [facility] Address: [address] [place] [address] Performed By: #### 2 4321-2, 2275-4, 18303-8 ####[facility] LABCLIA [id number] [address] [address] [place] Creatinine [Mass/Vol] 0.88 mg/dL Normal 0.58-0.96 [facility] Comment on above: Order Comment: Santhosh mullins Type: BLOOD SPECIMENOrdering Facility: [facility] Address: [address] [place] [address] Performed By: #### 2 4321-2, 2276-4, 61271-9 ####[facility] LABCLIA [id number] [place] [address] [place] Creatinine and Glomerular filtration rate.predicted panel (S/P/Bld) 67 mL/min/1.73m??? Normal >=60 [facility] Comment on above: Order Comment: Santhosh mullins Type: BLOOD SPECIMENOrdering Facility: [facility] Address: [address] [place] [address] Result Comment: Antoinette mated Glomerular Filtration Rate [...] GFR. Performed By: #### 2 4321-2, 2276-4, 75573-3 ####[facility] LABCLIA [id number] [place] [address] [place] Glucose [Mass/Vol] 123 mg/dL High 74-99 [facility] Comment on above: Order Comment: Santhosh mullins Type: BLOOD SPECIMENOrdering Facility: [facility] Address: [address] [place] [address] Result Comment: The [place] Diabetes Association (ADA) provides guidance for cutoff [...] Standards of Medical Care in Diabetes 2016, [place] Diabetes Association. Diabetes Care. 2016.39(Suppl 1). Performed By: #### 2 4321-2, 6-4, 54836-2 ####[facility] LABCLIA [id number] [address] [address] [place] Potassium [Moles/Vol] 4.9 mmol/L Normal 3.7-5.1 [facility] Comment on above: Order Comment: Speci men Type: BLOOD SPECIMENOrdering Facility: [facility] Address: [address] [place] [address] Performed By: #### 2 4321-2, 2275-, 74096-6 ####[facility] LABCLIA [id number] [place] [address] [place] Sodium [Moles/Vol] 139 mmol/L Normal 136-144 [facility] Comment on above: Order Comment: Speci men Type: BLOOD SPECIMENOrdering Facility: [facility] Address: [address] [place] [address] Performed By: #### 2 4321-2, 2275-, 57041-1 ####[facility] LABIA [id number] [place] [address] [place] Urea nitrogen [Mass/Vol] 24 mg/dL High 7-21 [facility] Comment on above: Order Comment: Speci men Type: BLOOD SPECIMENOrdering Facility: [facility] Address: [address] [place] [address] Performed By: #### 2 4321-2, 2275-12, 35279-0 ####[facility] LABCLIA [id number] [address] [address] [place] CBC W Auto Differential pane l (Bld)on 01-25-2025 Basophils (Bld) [#/Vol] 0.09 10*3/uL Normal <0.11 [facility] Comment on above: Order Comment: Speci men Type: BLOOD SPECIMENOrdering Facility: [facility] Address: [address] [place] [address] Performed By: #### 5 7021-8 ####[facility] LABCLIA [id number] [address] [place] [address] [place] Basophils/100 WBC (Bld) 0.9 % Normal [facility] Comment on above: Order Comment: Speci men Type: BLOOD SPECIMENOrdering Facility: [facility] Address: [address] [place] [address] Performed By: #### 5 7021-8 ####[facility] LABCLIA [id number] [address], [place] [address] [place] Differential cell count method Nom (Bld) Auto Normal [facility] Comment on above: Order Comment: Speci men Type: BLOOD SPECIMENOrdering Facility: [facility] Address: [address] [place] [address] Performed By: #### 5 7021-8 ####[facility] LABCLIA [id number] [place] [address] [place] Eosinophils (Bld) [#/Vol] 0.11 10*3/uL Normal <0.46 [facility] Comment on above: Order Comment: Speci men Type: BLOOD SPECIMENOrdering Facility: [facility] Address: [address] [place] [address] Performed By: #### 5 7021-8 ####[facility] LABCLIA [id number] [place] [address] [place] Eosinophils/100 WBC (Bld) 1.1 % Normal [facility] Comment on above: Order Comment: Speci men Type: BLOOD SPECIMENOrdering Facility: [facility] Address: [address] [place] [address] Performed By: #### 5 7021-8 ####[facility] LABCLIA [id number] [place] [address] [place] Erythrocyte distribution width (RBC) [Ratio] 14.5 % Normal 11.5-15.0 [facility] Comment on above: Order Comment: Speci men Type: BLOOD SPECIMENOrdering Facility: [facility] Address: [address] [place] [address] Performed By: #### 5 7021-8 ####[facility] LABIA [id number] [place] [address] [place] Hematocrit (Bld) [Volume fraction] 45.7 % Normal 36.0-46.0 [facility] Comment on above: Order Comment: Speci men Type: BLOOD SPECIMENOrdering Facility: [facility] Address: [address] [place] [address] Performed By: #### 5 7021-8 ####[facility] LABIA [id number] [place] [address] [place] Hemoglobin (Bld) [Mass/Vol] 14.3 g/dL Normal 11.5-15.5 [facility] Comment on above: Order Comment: Speci men Type: BLOOD SPECIMENOrdering Facility: [facility] Address: [address] [place] [address] Performed By: #### 5 7021-8 ####[facility] LABIA [id number] [place] [address] [place] Immature granulocytes (Bld) [#/Vol] 0.04 10*3/uL Normal <0.10 [facility] Comment on above: Order Comment: Speci men Type: BLOOD SPECIMENOrdering Facility: [facility] Address: [address] [place] [address] Performed By: #### 5 7021-8 ####[facility] LABIA [id number] [place] [address] [place] Immature granulocytes/100 WBC (Bld) 0.4 % Normal [facility] Comment on above: Order Comment: Speci men Type: BLOOD SPECIMENOrdering Facility: [facility] Address: [address] [place] [address] Performed By: #### 5 7021-8 ####[facility] LABCLIA [id number] [place] [address] [place] Lymphocytes (Bld) [#/Vol] 1.58 10*3/uL Normal 1.00-4.00 [facility] Comment on above: Order Comment: Speci men Type: BLOOD SPECIMENOrdering Facility: [facility] Address: [address] [place] [address] Performed By: #### 5 7021-8 ####[facility] LABCLIA [id number] [place] [address] [place] Lymphocytes/100 WBC (Bld) 16.0 % Normal [facility] Comment on above: Order Comment: Speci men Type: BLOOD SPECIMENOrdering Facility: [facility] Address: [address] [place] [address] Performed By: #### 5 7021-8 ####[facility] LABCLIA [id number] [place] [address] [place] MCH (RBC) [Entitic mass] 29.0 pg Normal 26.0-34.0 [facility] Comment on above: Order Comment: Speci men Type: BLOOD SPECIMENOrdering Facility: [facility] Address: [address] [place] [address] Performed By: #### 5 7021-8 ####[facility] LABCLIA [id number] [place] [address] [place] MCHC (RBC) [Mass/Vol] 31.3 g/dL Normal 30.5-36.0 [facility] Comment on above: Order Comment: Speci men Type: BLOOD SPECIMENOrdering Facility: [facility] Address: [address] [place] [address] Performed By: #### 5 7021-8 ####[facility] LABCLIA [id number] [place] [address] [place] MCV (RBC) [Entitic vol] 92.7 fL Normal 80.0-100.0 [facility] Comment on above: Order Comment: Speci men Type: BLOOD SPECIMENOrdering Facility: [facility] Address: [address] [place] [address] Performed By: #### 5 7021-8 ####[facility] LABIA [id number] [place] [address] [place] Monocytes (Bld) [#/Vol] 0.89 10*3/uL High <0.87 [facility] Comment on above: Order Comment: Speci men Type: BLOOD SPECIMENOrdering Facility: [facility] Address: [address] [place] [address] Performed By: #### 5 7021-8 ####[facility] LABIA [id number] [place] [address] [place] Monocytes/100 WBC (Bld) 9.0 % Normal C [facility] Comment on above: Order Comment: Speci men Type: BLOOD SPECIMENOrdering Facility: [facility] Address: [address] [place] [address] Performed By: #### 5 7021-8 ####[facility] LABIA [id number] [place] [address] [place] Neutrophils (Bld) [#/Vol] 7.16 10*3/uL Normal 1.45-7.50 [facility] Comment on above: Order Comment: Speci men Type: BLOOD SPECIMENOrdering Facility: [facility] Address: [address] [place] [address] Performed By: #### 5 7021-8 ####[facility] LABIA [id number] [place] [address] [place] Neutrophils/100 WBC (Bld) 72.6 % Normal [facility] Comment on above: Order Comment: Speci men Type: BLOOD SPECIMENOrdering Facility: [facility] Address: [address] [place] [address] Performed By: #### 5 7021-8 ####[facility] LABCLIA [id number] [facility] [address] [place] [address] [place] Nucleated RBC (Bld) [#/Vol] 10*3/uL Normal <0.01 [facility] Comment on above: Order Comment: Speci men Type: BLOOD SPECIMENOrdering Facility: [facility] Address: [address] [place] [address] Performed By: #### 5 7021-8 ####[facility] LABCLIA [id number] [facility] [address], [place] [address] [place] Nucleated RBC/100 WBC (Bld) [Ratio] 0.0 /100 WBC Normal [facility] Comment on above: Order Comment: Speci men Type: BLOOD SPECIMENOrdering Facility: [facility] Address: [address] [place] [address] Performed By: #### 5 7021-8 ####[facility] LABCLIA [id number] [address], [facility] [place] Platelet mean volume (Bld) [Entitic vol] 10.8 fL Normal 9.0-12.7 [facility] Comment on above: Order Comment: Speci men Type: BLOOD SPECIMENOrdering Facility: [facility] Address: [address] [place] [address] Performed By: #### 5 7021-8 ####[facility] LABIA [id number] [place] [id number] [place] Platelets (Bld) [#/Vol] 310 10*3/uL Normal 150-400 [facility] Comment on above: Order Comment: Speci men Type: BLOOD SPECIMENOrdering Facility: [facility] Address: [address] [place], [place] [address] Performed By: #### 5 7021-8 ####[facility] LABIA [id number] [place] [id number] [place] RBC (Bld) [#/Vol] 4.93 10*6/uL Normal 3.90-5.20 [facility] Comment on above: Order Comment: Speci men Type: BLOOD SPECIMENOrdering Facility: [facility] Address: [address] [place] [address] Performed By: #### 5 7021-8 ####[facility] LABIA [id number] [place] [id number] [place] WBC (Bld) [#/Vol] 9.87 10*3/uL Normal 3.70-11.00 [facility] Comment on above: Order Comment: Speci men Type: BLOOD SPECIMENOrdering Facility: [facility] Address: [address] [place] [address] Performed By: #### 5 7021-8 ####[facility] [id number] [address] [place] Farideh 01-25-2025 CNOV Office Visit (EYADPWS ) SAHARA MELÉNDEZ ([id number]) 1945 F NFR Date Time Provider Department [...] CHF and AFib: - Recent hospitalization at [facility] from 01/17 to 01/19 for CHF [...] later resumed at 50 mg BID by pageant director Dr. San on 01/21. - Lisinopril was held by cardiology as well after med adjustments. - Reports improvement in dyspnea and no chest pain; able to lie down comfortably. - Occasional palpitations, similar to pre-hospitalization. - No significant LE edema, dizziness, or lightheadedness. - Not monitoring daily weights or blood pressure at home. - Follow-up with [facility] scheduled for next week. Memory Issues: - Noted by Sahara's daughter during recent hospitalization. - Referred to a surgical services tech for evaluation; did not complete recommended MRI [...] and atrial (more content not included)... Normal [facility] Ferritin [facility] 2024 Ferritin [Mass/Vol] 168.0 ng/mL Normal 14.7-205.1 [facility] Comment on above: Order Comment: Speci men Type: BLOOD SPECIMENOrdering Facility: [facility] Address: [address] [place] [address] Performed By: #### 2 4321-2, 2276-4, 74626-1 ####[facility] LABCLIA [id number] [address] [place] Folate SerPl-mCncon 01-26-20 25 Folate [Mass/Vol] ng/mL Normal >4.[address] [facility] Comment on above: Order Comment: Speci men Type: BLOOD SPECIMENOrdering Facility: [facility] Address: [address] [place] [address] Result Comment: A re sult of > 20 ng/mL is not necessarily indicative of a pathologic or treatable condition: it reflects a limitation of the test methodology. Assay reference range: 4.8 to 24.2 ng/mL. Suitable for detection of folate deficiency. Reference: Folate III (Folate III) [package insert V 1.0 Citizen Of [place]]. [facility], [place], [place]: July 2015. Performed By: #### 2 284-8, 2132-9 ####[facility] LABCLIA [id number] [place] [address] [place] Gastroenterology Visit Repor ton 01-25-2025 Gastroenterology Visit Report [facility]ology [address] [place] [address] OFFICE VISIT Date of Service: 01/25/25 MR#: [id number] Acct: [id number] Name: SAHARA MELÉNDEZ Rep #: [id number] : 1945 Provider: Lawrence David DO Age/Sex: 79/F [facility] Status: Signed Intake Vital Signs 07/26/24 10:47 [...] type: d (more content not included)... Normal [facility] Iron and Iron binding capaci panelon 01-25-2025 Iron [Mass/Vol] 116 ug/dL Normal 41-186 [facility] Comment on above: Order Comment: Speci men Type: BLOOD SPECIMENOrdering Facility: [facility] Address: [address] [place] [address] Performed By: #### 2 4321-2, 2276-4, 37944-8 ####[facility] LABCLIA [id number] [place] [address] [place] Iron binding capacity [Mass/Vol] 415 ug/dL High 232-386 [facility] Comment on above: Order Comment: Speci men Type: BLOOD SPECIMENOrdering Facility: [facility] Address: [address] [place] [address] Performed By: #### 2 4321-2, 2276-4, 97476-2 ####[facility] LABCLIA [id number] [place] [address] [place] Iron/TIBC [Molar ratio] 28.0 % Normal 15.0-57.0 [facility] Comment on above: Order Comment: Speci men Type: BLOOD SPECIMENOrdering Facility: [facility] Address: [address] [place] [address] Performed By: #### 2 4321-2, 2276-4, 79439-4 ####[facility] LABCLIA [id number] [place] [id number] [place] Vit [facility]Pl[facility] Cobalamin (Vitamin B12) [Mass/Vol] 856 pg/mL Normal 232-1245 [facility] Comment on above: Order Comment: Speci men Type: BLOOD SPECIMENOrdering Facility: [facility] Address: [address] [place] [address] Performed By: #### 2 284-8, 2132-9 ####[facility] LABCLIA [id number] [facility] [address] STATES OF [facility] Absolute lymphocyte countOrd ered By: Antonio San on 01-21-2025 Lymphocytes Auto (Unsp spec) [#/Vol] 1.74 10*3/uL 0.83-4.51 [facility] Absolute neutrophil countOrd ered By: Antonio San on 01-21-2025 Neutrophils (Bld) [#/Vol] 6.5 10*3/uL 2.0-7.7 [facility] Anion gap in Serum or Plasma Ordered By: Antonio San on 01-21-2025 Anion gap [Moles/Vol] 12 mmol/L 5-15 [facility] Automated blood erythrocyte countOrdered By: Antonio San on 01-21-2025 RBC (Bld) [#/Vol] 4.79 10*6/uL Normal 4.2-5.4 [facility] Comment on above: Performed By: #### L 500.3400, L500.4100 #### [facility] [address] [facility], [id number] Automated blood hematocrit ( percentage)Ordered By: Antonio San on 01-21-2025 Hematocrit (Bld) [Volume fraction] 44.3 % Normal 37-47 [facility] Comment on above: Performed By: #### L 500.3400, L500.4100 #### [facility] [address] [facility] [place], [address] Automated lymphocyte count a s percentage of total leukocytesOrdered By: Antonio San on 01-21-2025 Lymphocytes/100 WBC Auto (Unsp spec) 18.1 % Low 19-41 [facility] BUN/creatinine ratioOrdered By: Antonio San on 01-21-2025 Urea nitrogen/Creatinine [Mass ratio] 17.9 mg/mg - [facility] Basic Metabolic Profile (BMP )on 01-21-2025 BUN/CRE 17.9 RATIO Normal 07-01 [facility] Comment on above: Performed By: #### L 501.5200, L501.9520, L501.2300, L500.4050, L100.0100 #### [facility] [address] [place], [address] Calcium [Mass/Vol] 9.8 mg/dL Normal 7.6-11.0 [facility] Comment on above: Performed By: #### L 501.5200, L501.9520, L501.2300, L500.4050, L100.0100 #### [facility] [address] [place], [address] Chloride [Moles/Vol] 103 mmol/L Normal 98-108 [facility] Comment on above: Performed By: #### L 501.5200, L501.9520, L501.2300, L500.4050, L100.0100 #### [facility] [address] [place], [address] CO2 [Moles/Vol] 25.4 mmol/L Normal 21.0-32.0 [facility] Comment on above: Performed By: #### L 501.5200, L501.9520, L501.2300, L500.4050, L100.0100 #### [facility] [address] [place], [address] Creatinine [Mass/Vol] 1.49 mg/dL High 0.70-1.20 [facility] Comment on above: Performed By: #### L 501.5200, L501.9520, L501.2300, L500.4050, L100.0100 #### [facility] [address] [place], [address] GAP 12 Normal 5-15 [facility] Comment on above: Performed By: #### L 501.5200, L501.9520, L501.2300, L500.4050, L100.0100 #### [facility] [address] [place], [address] GFR/1.73 sq M.predicted among non-blacks MDRD (S/P/Bld) [Vol rate/Area] 36 mL/min/{1.73_m2} Low >60 [facility] Comment on above: Result Comment: mL/m in/1.73m2 CKD-EPI Creatinine Equation (2020) Performed By: #### L 501.5200, L501.9520, L501.2300, L500.4050, L100.0100 #### [facility] [address] [place], [address] Glucose [Mass/Vol] 123 mg/dL High 70-99 [facility] Comment on above: Performed By: #### L 501.5200, L501.9520, L501.2300, L500.4050, L100.0100 #### [facility] [address] [place], [address] Potassium [Moles/Vol] 5.1 mmol/L Normal 3.3-5.1 [facility] Comment on above: Result Comment: Hemo lysis present, Results??could be affected. ?? Performed By: #### L 501.5200, L501.9520, L501.2300, L500.4050, L100.0100 #### [facility] [address] [place], [address] Sodium [Moles/Vol] 140 mmol/L Normal 133-145 [facility] Comment on above: Performed By: #### L 501.5200, L501.9520, L501.2300, L500.4050, L100.0100 #### [facility] [address] [place], [address] Urea nitrogen [Mass/Vol] 27 mg/dL High 4-19 [facility] Comment on above: Performed By: #### L 501.5200, L501.9520, L501.2300, L500.4050, L100.0100 #### [facility] [address] [place], [address] Basophil percentageOrdered B y: Antonio San on 01-21-2025 Basophils/100 WBC (Bld) 0.6 % Normal 0-[address] [facility] Comment on above: Performed By: #### L 500.3400, L500.4100 #### [facility] [address] [place], [address] Bilirubin Test strip Ql (U)O rdered By: Antonio San on 01-21-2025 Bilirubin Ql (U) Negative Negative [facility] CBC W/Diff, Automatedon 01-10 Absolute Lymph 1.74 X10 3/uL Normal 0.83-4.51 [facility] Comment on above: Performed By: #### L 500.3400, L500.4100 #### [facility] [address] [place], [address] Absolute Neut 6.5 X10 3/uL Normal 2.0-7.7 [facility] Comment on above: Performed By: #### L 500.3400, L500.4100 #### [facility] [address] [place], [address] IG% 0.400 Normal 0.0-0.9 [facility] Comment on above: Result Comment: IG% - Immature Granulocytes (promyelocytes, myelocytes and metamyelocytes) > 1% indicates that a LEFT SHIFT is Present. Performed By: #### L 500.3400, L500.4100 #### [facility] [address] [place], [address] Lymphocytes/100 WBC (Bld) 18.1 % Low 19-41 [facility] Comment on above: Performed By: #### L 500.3400, L500.4100 #### [facility] [address] [place], [address] Nucleated RBC (Bld) [#/Vol] 0 10*3/uL Normal 0-5 [facility] Comment on above: Performed By: #### L 500.3400, L500.4100 #### [facility] [address] [place], [address] RDW SD 49.9 fl High 35.1-43.9 [facility] Comment on above: Performed By: #### L 500.3400, L500.4100 #### [facility] [address] [place], [address] Carbon dioxide, total [Moles /volume] in Central venous bloodOrdered By: Antonio San on 01-21-2025 CO2 [Moles/Vol] 25.4 mmol/L 21.0-32.0 [facility] Cardiology Visit Reporton Cardiology Visit Report [facility] [address] [place] [address] OFFICE VISIT Date of Service: 01/21/25 MR#: [id number] Acct: [id number] Name: SAHARA MELÉNDEZ Rep #: [id number] : 1945 Provider: BRADFORD urbina Age/Sex: 79/F [place] [facility] [place] Status: Signed HPI HPI History of Present [...] and negative for ischemia. She presented to [facility] on 01/17/2025 for ongoing shortness of [...] Source NIBP Intake Visit Reasons: S/P (01/19/25) Lining Brusher Required: No Is patient in pain?: No [...] you fallen in the past year?: No [facility] Medical History Dyspnea on exertion Wears glasses High cholesterol TIA (transient ischemic attack) History of IBS History of diverticulitis History of Holter (more content not included)... Normal [facility] Chloride assayOrdered By: Barbara San on 01-21-2025 Chloride [Moles/Vol] 103 mmol/L 98-108 [facility] Eosinophil percentageOrdered By: Antonio San on 01-21-2025 Eosinophils/100 WBC (Bld) 1.3 % Normal 0-5 [facility] Comment on above: Performed By: #### L 500.3400, L500.4100 #### [facility] [address] [place], [address] Erythrocyte distribution wid th ratioOrdered By: Antonio San on 01-21-2025 Erythrocyte distribution width (RBC) [Ratio] 14.7 % High 11.6-14.6 [facility] Comment on above: Performed By: #### L 500.3400, L500.4100 #### [facility] [address] [place], [address] Erythrocyte distribution wid th standard deviationOrdered By: Antonio San on 01-21-2025 Erythrocyte distribution width (RBC) [Ratio] 49.9 fl High 35.1-43.9 [facility] Glomerular filtration rate ( GFR) estimation/1.73 sq m using serum, plasma, or whole bOrdered By: Antonio San on 01-21-2025 GFR/1.73 sq M.predicted among non-blacks MDRD (S/P/Bld) [Vol rate/Area] 36 mL/min/{1.73_m2} Low >60 [facility] Comment on above: mL/min/1.73m2 CKD-EP I Creatinine Equation (2020) Hemoglobin measurementOrdere d By: Antonio San on 01-21-2025 Hemoglobin (Bld) [Mass/Vol] 14.2 g/dL Normal 12.0-15.0 [facility] Comment on above: Performed By: #### L 500.3400, L500.4100 #### [facility] [address] [place], [address] Immature granulocytes/100 WB C Auto (Bld)Ordered By: Antonio San on 01-21-2025 Immature granulocytes/100 WBC (Bld) 0.400 % 0.0-0.9 [facility] Comment on above: IG% - Immature Granu locytes (promyelocytes, myelocytes and metamyelocytes) > 1% indicates that a LEFT SHIFT is Present. Ketones Test strip Ql (U)Ord ered By: Antonio San on 01-21-2025 Ketones Ql (U) Negative Negative [facility] L503.7505on 01-21-2025 Natriuretic peptide B (Bld) [Mass/Vol] 2889 pg/mL High <=1800 [facility] Comment on above: Result Comment: Hear t Failure Unlikely: < 300 pg/mL Heart Failure Likely < 50 Years: > 450 pg/mL 50-75 Years: > 900 pg/mL >75 Years: > 1800 pg/mL Performed By: #### L 501.5200, L501.9520, L501.2300, L500.4050, L100.0100 #### [facility] [address] [place], [address] MCV (mean corpuscular volume ) determinationOrdered By: Antonio San on 01-21-2025 MCV (RBC) [Entitic vol] 92.5 fL Normal 81-[address] [facility] Comment on above: Performed By: #### L 500.3400, L500.4100 #### [facility] [address] [place], [address] Mean corpuscular hemoglobin (MCH) determinationOrdered By: Antonio San on 01-21-2025 MCH (RBC) [Entitic mass] 29.6 pg Normal 27.0-32.0 [facility] Comment on above: Performed By: #### L 500.3400, L500.4100 #### [facility] [address] [place], [place], [address] Mean corpuscular hemoglobin concentration (MCHC) determinationOrdered By: Antonio San on 01-21-2025 MCHC (RBC) [Mass/Vol] 32.1 g/dL Normal 32-36 [facility] Comment on above: Performed By: #### L 500.3400, L500.4100 #### [facility] [address] [place], [place], [address] Mean platelet volume determi nationOrdered By: Antonio San on 01-21-2025 Platelet mean volume (Bld) [Entitic vol] 10.4 fL Normal 6.2-12.0 [facility] Comment on above: Performed By: #### L 500.3400, L500.4100 #### [facility] [address] [place], [address] Microscopic analysis of urin e for red blood cells (RBC)Ordered By: Antonio San on 01-21-2025 Microscopic analysis of urine for red blood cells (RBC) 0 SEEN /hpf 0-5 [facility] Monocyte percentageOrdered B y: Antonio San on 01-21-2025 Monocytes/100 WBC (Bld) 11.7 % High 0-[address] [facility] Comment on above: Performed By: #### L 500.3400, L500.4100 #### [facility] [address] [place], [place], [address] Mucus LM Ql (Urine sed)Order ed By: Antonio San on 01-21-2025 Mucus Ql (Urine sed) 0 SEEN /hpf [facility] Natriuretic peptide.B prohor edis N-Terminal [Mass/volume] in Serum or PlasmaOrdered By: Antonio San on 01-21-2025 Natriuretic peptide.B prohormone N-Terminal [Mass/Vol] 2889 pg/mL High <1800 [facility] Comment on above: Heart Failure Unlike ly: < 300 pg/mLHeart Failure Likely< 50 Years: > 450 pg/mL50-75 Years: > 900 pg/mL>75 Years: > 1800 pg/mL Neutrophil percentageOrdered By: Antonio San on 01-21-2025 Neutrophils/100 WBC (Bld) 67.9 % Normal 47-70 [facility] Comment on above: Performed By: #### L 500.3400, L500.4100 #### [facility] [address] [place], [address] Nitrite Test strip Ql (U)Ord ered By: Antonio San on 01-21-2025 Nitrite Ql (U) Negative Negative [facility] Nucleated red blood cell per centageOrdered By: Antonio San on 01-21-2025 Nucleated RBC/100 WBC (Bld) [Ratio] 0 % 0-5 [facility] Platelet countOrdered By: Barbara San on 01-21-2025 Platelets (Bld) [#/Vol] 324 10*3/uL Normal 150-450 [facility] Comment on above: Performed By: #### L 500.3400, L500.4100 #### [facility] [address] [place], [place], [address] Potassium measurement (mass/ volume)Ordered By: Antonio San on 01-21-2025 Potassium (Unsp spec) [Mass/Vol] 5.1 mmol/L 3.3-5.1 [facility] Comment on above: Hemolysis present, R esults could be affected. Protein Test strip Ql (U)Ord ered By: Antonio San on 01-21-2025 Protein Ql (U) 15 mg/dl High Negative [facility] Serum creatinine measurement (mass/volume)Ordered By: Antonio San on 01-21-2025 Creatinine [Mass/Vol] 1.49 mg/dL High 0.70-1.20 [facility] Serum glucose measurement (m ass/volume)Ordered By: Antonio San on 01-21-2025 Glucose [Mass/Vol] 123 mg/dL High 70-99 [facility] Serum or plasma calcium dahlia urement (mass/volume)Ordered By: Antonio San on 01-21-2025 Calcium [Mass/Vol] 9.8 mg/dL 7.6-11.0 [facility] Serum or plasma urea nitroge n measurement (mass/volume)Ordered By: Antonio San on 01-21-2025 Urea nitrogen [Mass/Vol] 27 mg/dL High 4-19 [facility] Sodium levelOrdered By: Antonio San on 01-21-2025 Sodium [Moles/Vol] 140 mmol/L 133-145 [facility] Squamous epithelial cells de tection in urine sediment by light microscopyOrdered By: Antonio San on 01-21-2025 Epithelial cells.squamous LM Ql (Urine sed) 0 SEEN /hpf -10 [facility] Urinalysis, Completeon 01-21 WBC 0-5 SEEN Normal 0-5 [facility] Comment on above: Order Comment: REINALDO CTOR TO SPECIFY Performed By: #### L 501.5200, L501.9520, L501.2300, L500.4050, L100.0100 #### [facility] [address] [place], [address] BACTERIA 0 SEEN Normal None Seen [facility] Comment on above: Order Comment: REINALDO CTOR TO SPECIFY Performed By: #### L 501.5200, L501.9520, L501.2300, L500.4050, L100.0100 #### [facility] [address] [place], [address] EPI,SQUAMOUS 0 SEEN Normal - [facility] Comment on above: Order Comment: REINALDO CTOR TO SPECIFY Performed By: #### L 501.5200, L501.9520, L501.2300, L500.4050, L100.0100 #### [facility] [address] [place], [address] Mucus Ql (Urine sed) 0 SEEN Normal [facility] Comment on above: Order Comment: REINALDO CTOR TO SPECIFY Performed By: #### L 501.5200, L501.9520, L501.2300, L500.4050, L100.0100 #### [facility] [address] [place], [address] RBC 0 SEEN Normal 0-5 [facility] Comment on above: Order Comment: COLLE CTOR TO SPECIFY Performed By: #### L 501.5200, L501.9520, L501.2300, L500.4050, L100.0100 #### [facility] [address] [place], [address] Urine clarityOrdered By: Yoel San on 01-21-2025 Clarity (U) Clear Clear [facility] Urine color determinationOrd ered By: Antonio San on 01-21-2025 Color (U) Yellow Yellow [facility] Urine glucose detectionOrder ed By: Antonio San on 01-21-2025 Glucose Ql (U) 1000 mg/dl High Normal [facility] Urine leukocyte esterase det ection by dipstickOrdered By: Antonio San on 01-21-2025 Leukocyte esterase Test strip Ql (U) 25 /ul High Negative [facility] Urine pHOrdered By: Antonio urbina on 01-21-2025 pH (U) 5.0 [pH] 5.0 - 8.0 [facility] Urine sediment bacteria coun t by microscopy (number/high power field)Ordered By: Antonio San on 01-21-2025 Bacteria LM.HPF (Urine sed) [#/Area] 0 /[HPF] None Seen [facility] Urine specific gravity measu rementOrdered By: Antonio San on 01-21-2025 Specific gravity (U) [Rel density] 1.020 1.002-1.03 0 [facility] Urine urobilinogen measureme ntOrdered By: Antonio San on 01-21-2025 Urobilinogen Ql (U) Normal mg/dl Normal [facility] White blood cell (WBC) count Ordered By: Antonio San on 01-21-2025 WBC (Bld) [#/Vol] 9.6 10*3/uL Normal 4.4-11.0 [facility] Comment on above: Performed By: #### L 500.3400, L500.4100 #### [facility] [address] [place], [address] White blood cell countOrdere d By: Antonio San on 01-21-2025 White blood cell count 0-5 SEEN /hpf 0-5 [facility] 12 Lead EKGon 01-19-2025 12 Lead EKG [facility] Cardiovascular Services [address] [place] [address] 12 Lead EKG 01/17/25 0931 MR#: [id number] Acct: [id number] Name: SAHARA MELÉNDEZ Rep #: [id number] : 1945 79 From: Pato Simmons MD Attending Dr: Dr. Veronica Louise DO Status: DIS I N Ordering Dr: Liat Hale MD Date: 01/19/25 Location: [facility] Sex: F C Admitted: 01/17/25 Test Reason [...] DATA IS UNCONFIRMED Confirmed by Pato Simmons ([id number]), acquisition editor STACEY TERRAZAS ([id number]) on 01/21/2025 11:57:11 AM Referred By: DANI Confirmed By: Pato Simmons 01/21/25 1157 Date Pato Simmons MD CC: Dr. Liat Hale MD; Dr. Veronica Louise DO; Dr. Rosendo Brown MD Signed Normal [facility] Anion gap in Serum or Plasma Ordered By: Liat Hale on 01-19-2025 Anion gap [Moles/Vol] 10 mmol/L 01-24 [facility] BUN/creatinine ratioOrdered By: Liat Hale on 01-19-2025 Urea nitrogen/Creatinine [Mass ratio] 19.3 mg/mg - [facility] Bilirubin, totalOrdered By: Liat Hale on 01-19-2025 Bilirubin [Mass/Vol] 0.66 mg/dL 0.00-1.30 [facility] CBC-Complete Blood Cnt No Faith ffon 01-19-2025 Erythrocyte distribution width (RBC) [Ratio] 14.7 % High 11.6-14.6 [facility] Comment on above: Performed By: #### L 501.5200, L501.9520, L501.2300, L500.4050, L100.0100 #### [facility] [address] [place], [address] Hematocrit (Bld) [Volume fraction] 39.4 % Normal 37-47 [facility] Comment on above: Performed By: #### L 501.5200, L501.9520, L501.2300, L500.4050, L100.0100 #### [facility] [address] [place], [address] Hemoglobin (Bld) [Mass/Vol] 12.9 g/dL Normal 12.0-15.0 [facility] Comment on above: Performed By: #### L 501.5200, L501.9520, L501.2300, L500.4050, L100.0100 #### [facility] [address] [place], [address] MCH (RBC) [Entitic mass] 30.2 pg Normal 27.0-32.0 [facility] Comment on above: Performed By: #### L 501.5200, L501.9520, L501.2300, L500.4050, L100.0100 #### [facility] [address] [place], [address] MCHC (RBC) [Mass/Vol] 32.7 g/dL Normal 32-36 [facility] Comment on above: Performed By: #### L 501.5200, L501.9520, L501.2300, L500.4050, L100.0100 #### [facility] [address] [place], [address] MCV (RBC) [Entitic vol] 92.3 fL Normal 81-[address] [facility] Comment on above: Performed By: #### L 501.5200, L501.9520, L501.2300, L500.4050, L100.0100 #### [facility] [address] [place], [address] Platelet mean volume (Bld) [Entitic vol] 10.0 fL Normal 6.2-12.0 [facility] Comment on above: Performed By: #### L 501.5200, L501.9520, L501.2300, L500.4050, L100.0100 #### [facility] [address] [place], [address] Platelets (Bld) [#/Vol] 284 10*3/uL Normal 150-450 [facility] Comment on above: Performed By: #### L 501.5200, L501.9520, L501.2300, L500.4050, L100.0100 #### [facility] [address] [place], [address] RBC (Bld) [#/Vol] 4.27 10*6/uL Normal 4.2-5.4 [facility] Comment on above: Performed By: #### L 501.5200, L501.9520, L501.2300, L500.4050, L100.0100 #### [facility] [address] [place], [address] RDW SD 49.5 fl High 35.1-43.9 [facility] Comment on above: Performed By: #### L 501.5200, L501.9520, L501.2300, L500.4050, L100.0100 #### [facility] [address] [place], [address] WBC (Bld) [#/Vol] 9.4 10*3/uL Normal 4.4-11.0 [facility] Comment on above: Performed By: #### L 501.5200, L501.9520, L501.2300, L500.4050, L100.0100 #### [facility] [address] [place], [address] Carbon dioxide, total [Moles /volume] in Central venous bloodOrdered By: Liat Hale on 01-19-2025 CO2 [Moles/Vol] 29.5 mmol/L 21.0-32.0 [facility] Chloride assayOrdered By: Martin Hale on 01-19-2025 Chloride [Moles/Vol] 103 mmol/L 98-108 [facility] Comprehensive Metabolic Prof ilon 01-19-2025 Albumin [Mass/Vol] 3.6 g/dL Normal 3.4-4.8 [facility] Comment on above: Performed By: #### L 501.5200, L501.9520, L501.2300, L500.4050, L100.0100 #### [facility] [address] [place], [address] Albumin/Globulin [Mass ratio] 1.1 {ratio} Normal 0.9-2.4 [facility] Comment on above: Performed By: #### L 501.5200, L501.9520, L501.2300, L500.4050, L100.0100 #### [facility] [address] [place], [address] ALK PHOS 79 U/L Normal 35-104 [facility] Comment on above: Performed By: #### L 501.5200, L501.9520, L501.2300, L500.4050, L100.0100 #### [facility] [address] [place], [address] ALT [Catalytic activity/Vol] 19 U/L Normal <=34 [facility] Comment on above: Performed By: #### L 501.5200, L501.9520, L501.2300, L500.4050, L100.0100 #### [facility] [address] [place], [address] AST [Catalytic activity/Vol] 22 U/L Normal <=31 [facility] Comment on above: Performed By: #### L 501.5200, L501.9520, L501.2300, L500.4050, L100.0100 #### [facility] [address] [place], [address] Bilirubin [Mass/Vol] 0.66 mg/dL Normal 0.00-1.30 [facility] Comment on above: Performed By: #### L 501.5200, L501.9520, L501.2300, L500.4050, L100.0100 #### [facility] [address] [place], [address] BUN/CRE 19.3 RATIO Normal 10-20 [facility] Comment on above: Performed By: #### L 501.5200, L501.9520, L501.2300, L500.4050, L100.0100 #### [facility] [address] [place], [address] Calcium [Mass/Vol] 9.5 mg/dL Normal 7.6-11.0 [facility] Comment on above: Performed By: #### L 501.5200, L501.9520, L501.2300, L500.4050, L100.0100 #### [facility] [address] [place], [address] Chloride [Moles/Vol] 103 mmol/L Normal 98-108 [facility] Comment on above: Performed By: #### L 501.5200, L501.9520, L501.2300, L500.4050, L100.0100 #### [facility] [address] [place], [address] CO2 [Moles/Vol] 29.5 mmol/L Normal 21.0-32.0 [facility] Comment on above: Performed By: #### L 501.5200, L501.9520, L501.2300, L500.4050, L100.0100 #### [facility] [address] [place], [address] Creatinine [Mass/Vol] 0.84 mg/dL Normal 0.70-1.20 [facility] Comment on above: Performed By: #### L 501.5200, L501.9520, L501.2300, L500.4050, L100.0100 #### [facility] [address] [place], [address] ECRCL 59.81 ml/min Normal 50-250 [facility] Comment on above: Performed By: #### L 501.5200, L501.9520, L501.2300, L500.4050, L100.0100 #### [facility] [address] [place], [address] GAP 10 Normal 5-15 [facility] Comment on above: Performed By: #### L 501.5200, L501.9520, L501.2300, L500.4050, L100.0100 #### [facility] [address] [place], [address] GFR/1.73 sq M.predicted among non-blacks MDRD (S/P/Bld) [Vol rate/Area] 71 mL/min/{1.73_m2} Normal >60 [facility] Comment on above: Result Comment: mL/m in/1.73m2 CKD-EPI Creatinine Equation (2020) Performed By: #### L 501.5200, L501.9520, L501.2300, L500.4050, L100.0100 #### [facility] [address] [place], [address] Globulin (S) [Mass/Vol] 3.3 g/dL Normal 2.2-4.2 [facility] Comment on above: Performed By: #### L 501.5200, L501.9520, L501.2300, L500.4050, L100.0100 #### [facility] [address] [place], [address] Glucose [Mass/Vol] 104 mg/dL High 70-99 [facility] Comment on above: Performed By: #### L 501.5200, L501.9520, L501.2300, L500.4050, L100.0100 #### [facility] [address] [place], [address] Potassium [Moles/Vol] 4.2 mmol/L Normal 3.3-5.1 [facility] Comment on above: Performed By: #### L 501.5200, L501.9520, L501.2300, L500.4050, L100.0100 #### [facility] [address] [place], [address] Sodium [Moles/Vol] 142 mmol/L Normal 133-145 [facility] Comment on above: Performed By: #### L 501.5200, L501.9520, L501.2300, L500.4050, L100.0100 #### [facility] [address] [place], [address] T PROT 6.9 g/dL Normal 5.9-8.4 [facility] Comment on above: Performed By: #### L 501.5200, L501.9520, L501.2300, L500.4050, L100.0100 #### [facility] [address] [place], [address] Urea nitrogen [Mass/Vol] 16 mg/dL Normal 4-19 [facility] Comment on above: Performed By: #### L 501.5200, L501.9520, L501.2300, L500.4050, L100.0100 #### [facility] [address] [place], [address] Erythrocyte distribution wid th ratioOrdered By: Veronica Louise on 01-19-2025 Erythrocyte distribution width (RBC) [Ratio] 14.7 % High 11.6-14.6 [facility] Erythrocyte distribution wid th standard deviationOrdered By: Veronica Louise on 01-19-2025 Erythrocyte distribution width (RBC) [Ratio] 49.5 fl High 35.1-43.9 [facility] Folates, RBCon 01-19-2025 Fol.,Hemolysate 533.0 ng/mL Normal Not Estab. [facility] Comment on above: Performed By: #### L 503.0106, L3100.1725 ####[facility] [address] [place], [place], [address] Folate, RBC 1363 ng/mL Normal >498 [facility] Comment on above: Result Comment: Perf ormed at: - [facility] [id number] Database Engineer: Addison Maradiaga PhD, Phone: [phone] Performed By: #### L 503.0106, L3100.1725 ####[facility] [address] [place], [address] Hematocrit (Bld) [Volume fraction] 39.1 % Normal 34.0-46.6 [facility] Comment on above: Performed By: #### L 503.0106, L3100.1725 ####[facility] [address] [place], [address] Glomerular filtration rate ( GFR) estimation/1.73 sq m using serum, plasma, or whole bOrdered By: Liat Hale on 01-19-2025 GFR/1.73 sq M.predicted among non-blacks MDRD (S/P/Bld) [Vol rate/Area] 71 mL/min/{1.73_m2} >60 [facility] Comment on above: mL/min/1.73m2 CKD-EP I Creatinine Equation (2020) Hematocrit Auto (Bld) [Volum e fraction]Ordered By: Veronica Louise on 01-19-2025 Hematocrit (Bld) [Volume fraction] 39.4 % 37-47 [facility] Hemoglobin measurementOrdere d By: Veronica Louise on 01-19-2025 Hemoglobin (Bld) [Mass/Vol] 12.9 g/dL 12.0-15.0 [facility] - Chemistry and C hemistry - challengeOrdered By: Liat Hale on 01-19-2025 AST [Catalytic activity/Vol] 22 U/L <32 [facility] MCV (mean corpuscular volume ) determinationOrdered By: Veronica Louise on 01-19-2025 MCV (RBC) [Entitic vol] 92.3 fL 81-99 [facility] Mean corpuscular hemoglobin (MCH) determinationOrdered By: Veronica Louise on 01-19-2025 MCH (RBC) [Entitic mass] 30.2 pg 27.0-32.0 [facility] Mean corpuscular hemoglobin concentration (MCHC) determinationOrdered By: Veronica Louise on 01-19-2025 MCHC (RBC) [Mass/Vol] 32.7 g/dL 32-36 [facility] Mean platelet volume determi nationOrdered By: Veronica Louise on 01-19-2025 Platelet mean volume (Bld) [Entitic vol] 10.0 fL 6.2-12.0 [facility] Platelet countOrdered By: Erick Louise on 01-19-2025 Platelets (Bld) [#/Vol] 284 10*3/uL 150-450 [facility] Potassium measurement (mass/ volume)Ordered By: Liat Hale on 01-19-2025 Potassium (Unsp spec) [Mass/Vol] 4.2 mmol/L 3.3-5.1 [facility] RBC Auto (Bld) [#/Vol]Ordere d By: Veronica Louise on 01-19-2025 RBC (Bld) [#/Vol] 4.27 10*6/uL 4.2-5.4 [facility] Serum creatinine measurement (mass/volume)Ordered By: Liat Hale on 01-19-2025 Creatinine [Mass/Vol] 0.84 mg/dL 0.70-1.20 [facility] Serum globulin measurementOr dered By: Liat Hale on 01-19-2025 Globulin (S) [Mass/Vol] 3.3 g/dL 2.2-4.[address] [facility] Serum glucose measurement (m ass/volume)Ordered By: Liat Hale on 01-19-2025 Glucose [Mass/Vol] 104 mg/dL High 70-99 [facility] Serum or plasma alanine gonsalves otransferase (ALT) measurementOrdered By: Liat Hale on 01-19-2025 ALT [Catalytic activity/Vol] 19 U/L <35 [facility] Serum or plasma albumin dahlia urement (mass/volume)Ordered By: Liat Hale on 01-19-2025 Albumin [Mass/Vol] 3.6 g/dL 3.4-4.8 [facility] Serum or plasma albumin/glob ulin mass ratioOrdered By: Liat Hale on 01-19-2025 Albumin/Globulin [Mass ratio] 1.1 {ratio} 0.9-2.4 [facility] Serum or plasma alkaline abdullahi sphatase measurementOrdered By: Liat Hale on 01-19-2025 ALP [Catalytic activity/Vol] 79 U/L 35-104 [facility] Serum or plasma calcium dahlia urement (mass/volume)Ordered By: Liat Hale on 01-19-2025 Calcium [Mass/Vol] 9.5 mg/dL 7.6-11.0 [facility] Serum or plasma urea nitroge n measurement (mass/volume)Ordered By: Liat Hale on 01-19-2025 Urea nitrogen [Mass/Vol] 16 mg/dL 4-19 [facility] Sodium levelOrdered By: Marshall Hale on 01-19-2025 Sodium [Moles/Vol] 142 mmol/L 133-145 [facility] Total proteinOrdered By: Yamilex Hale on 01-19-2025 Protein [Mass/Vol] 6.9 g/dL 5.9-8.4 [facility] White blood cell (WBC) count Ordered By: Veronica Luoise on 01-19-2025 WBC (Bld) [#/Vol] 9.4 10*3/uL 4.4-11.0 [facility] 12 Lead EKGon 01-18-2025 12 Lead EKG [facility] Cardiovascular Services [address] [place] [address] 12 Lead EKG 01/19/25 0535 MR#: [id number] Acct: [id number] Name: SAHARA MELÉNDEZ Rep #: [id number] : 1945 79 From: Pato Simmons MD Attending Dr: Dr. Veronica Louise DO Status: DIS I N Ordering Dr: Veronica Louise DO Date: 01/18/25 Location: [facility] Sex: F C Admitted: 01/17/25 Test Reason [...] DATA IS UNCONFIRMED Confirmed by Pato Simmons ([id number]), acquisition editor STACEY TERRAZAS ([id number]) on 01/21/2025 11:55:29 AM Referred By: Confirmed By: Pato Simmons 01/21/25 1155 Date Pato Simmons MD CC: Dr. Veronica Louise DO; Dr. Rosendo Brown MD Signed Normal [facility] 12 Lead EKG [facility] Cardiovascular Services [address] [place] [address] 12 Lead EKG 01/18/25 1558 MR#: [id number] Acct: [id number] Name: SAHARA MELÉNDEZ Rep #: [id number] : 1945 79 From: Pato Simmons MD Attending Dr: Dr. Veronica Louise DO Status: DIS I N Ordering Dr: Veronica Louise DO Date: 01/18/25 Location: [facility] Sex: F C Admitted: 01/17/25 Test Reason [...] are now Present Confirmed by Pato Simmons ([id number]), acquisition editor STACEY TERRAZAS ([id number]) on 01/21/2025 11:55:57 AM Referred By: Confirmed By: Pato Simmons 01/21/25 1156 Date Pato Simmons MD CC: Dr. Veronica Louise DO; Dr. Rosendo Brown MD Signed Normal [facility] Absolute lymphocyte countOrd ered By: Veronica Louise on 01-18-2025 Lymphocytes Auto (Unsp spec) [#/Vol] 1.50 10*3/uL 0.83-4.51 [facility] Absolute neutrophil countOrd ered By: Veronica Louise on 01-18-2025 Neutrophils (Bld) [#/Vol] 5.7 10*3/uL 2.0-7.7 [facility] Automated lymphocyte count a s percentage of total leukocytesOrdered By: Veronica Louise on 01-18-2025 Lymphocytes/100 WBC Auto (Unsp spec) 17.9 % Low 19-41 [facility] Basophil percentageOrdered B y: Veronica Louise on 01-18-2025 Basophils/100 WBC (Bld) 0.6 % 0-[address] [facility] CBC W/Diff, Automatedon Absolute Lymph 1.50 X10 3/uL Normal 0.83-4.51 [facility] Comment on above: Performed By: #### L 501.5200, L501.9520, L501.2300, L500.4050, L100.0100 #### [facility] [address] [place], [address] Absolute Neut 5.7 X10 3/uL Normal 2.0-7.7 [facility] Comment on above: Performed By: #### L 501.5200, L501.9520, L501.2300, L500.4050, L100.0100 #### [facility] [address] [place], [address] Basophils/100 WBC (Bld) 0.6 % Normal 0-[address] [facility] Comment on above: Performed By: #### L 501.5200, L501.9520, L501.2300, L500.4050, L100.0100 #### [facility] [address] [place], [address] Eosinophils/100 WBC (Bld) 2.5 % Normal 0-5 [facility] Comment on above: Performed By: #### L 501.5200, L501.9520, L501.2300, L500.4050, L100.0100 #### [facility] [address] [place], [address] Erythrocyte distribution width (RBC) [Ratio] 14.6 % Normal 11.6-14.6 [facility] Comment on above: Performed By: #### L 501.5200, L501.9520, L501.2300, L500.4050, L100.0100 #### [facility] [address] [place], [address] Hematocrit (Bld) [Volume fraction] 36.2 % Low 37-47 [facility] Comment on above: Performed By: #### L 501.5200, L501.9520, L501.2300, L500.4050, L100.0100 #### [facility] [address] [place], [address] Hemoglobin (Bld) [Mass/Vol] 11.9 g/dL Low 12.0-15.0 [facility] Comment on above: Performed By: #### L 501.5200, L501.9520, L501.2300, L500.4050, L100.0100 #### [facility] [address] [place], [address] IG% 0.400 Normal 0.0-0.9 [facility] Comment on above: Result Comment: IG% - Immature Granulocytes (promyelocytes, myelocytes and metamyelocytes) > 1% indicates that a LEFT SHIFT is Present. Performed By: #### L 501.5200, L501.9520, L501.2300, L500.4050, L100.0100 #### [facility] [address] [place], [address] Lymphocytes/100 WBC (Bld) 17.9 % Low 19-41 [facility] Comment on above: Performed By: #### L 501.5200, L501.9520, L501.2300, L500.4050, L100.0100 #### [facility] [address] [place], [address] MCH (RBC) [Entitic mass] 30.4 pg Normal 27.0-32.0 [facility] Comment on above: Performed By: #### L 501.5200, L501.9520, L501.2300, L500.4050, L100.0100 #### [facility] [address] [place], [address] MCHC (RBC) [Mass/Vol] 32.9 g/dL Normal 32-36 [facility] Comment on above: Performed By: #### L 501.5200, L501.9520, L501.2300, L500.4050, L100.0100 #### [facility] [address] [place], [address] MCV (RBC) [Entitic vol] 92.3 fL Normal 81-[address] [facility] Comment on above: Performed By: #### L 501.5200, L501.9520, L501.2300, L500.4050, L100.0100 #### [facility] [address] [place], [address] Monocytes/100 WBC (Bld) 10.7 % High 0-[address] [facility] Comment on above: Performed By: #### L 501.5200, L501.9520, L501.2300, L500.4050, L100.0100 #### [facility] [address] [place], [address] Neutrophils/100 WBC (Bld) 67.9 % Normal 47-70 [facility] Comment on above: Performed By: #### L 501.5200, L501.9520, L501.2300, L500.4050, L100.0100 #### [facility] [address] [place], [address] Nucleated RBC (Bld) [#/Vol] 0 10*3/uL Normal 0-5 [facility] Comment on above: Performed By: #### L 501.5200, L501.9520, L501.2300, L500.4050, L100.0100 #### [facility] [address] [place], [address] Platelet mean volume (Bld) [Entitic vol] 10.3 fL Normal 6.2-12.0 [facility] Comment on above: Performed By: #### L 501.5200, L501.9520, L501.2300, L500.4050, L100.0100 #### [facility] [address] [place], [address] Platelets (Bld) [#/Vol] 245 10*3/uL Normal 150-450 [facility] Comment on above: Performed By: #### L 501.5200, L501.9520, L501.2300, L500.4050, L100.0100 #### [facility] [address] [place], [address] RBC (Bld) [#/Vol] 3.92 10*6/uL Low 4.2-5.4 [facility] Comment on above: Performed By: #### L 501.5200, L501.9520, L501.2300, L500.4050, L100.0100 #### [facility] [address] [place], [address] RDW SD 49.1 fl High 35.1-43.9 [facility] Comment on above: Performed By: #### L 501.5200, L501.9520, L501.2300, L500.4050, L100.0100 #### [facility] [address] [place], [address] WBC (Bld) [#/Vol] 8.4 10*3/uL Normal 4.4-11.0 [facility] Comment on above: Performed By: #### L 501.5200, L501.9520, L501.2300, L500.4050, L100.0100 #### [facility] [address] [place], [address] Comprehensive Metabolic Prof [facility] 01-18-2025 Albumin [Mass/Vol] 3.5 g/dL Normal 3.4-4.8 [facility] Comment on above: Performed By: #### L 501.5200, L501.9520, L501.2300, L500.4050, L100.0100 #### [facility] [address] [place], [address] Albumin/Globulin [Mass ratio] 1.2 {ratio} Normal 0.9-2.4 [facility] Comment on above: Performed By: #### L 501.5200, L501.9520, L501.2300, L500.4050, L100.0100 #### [facility] [address] [place], [address] ALK PHOS 71 U/L Normal 35-104 [facility] Comment on above: Performed By: #### L 501.5200, L501.9520, L501.2300, L500.4050, L100.0100 #### [facility] [address] [place], [address] ALT [Catalytic activity/Vol] 19 U/L Normal <=34 [facility] Comment on above: Performed By: #### L 501.5200, L501.9520, L501.2300, L500.4050, L100.0100 #### [facility] [address] [place], [address] AST [Catalytic activity/Vol] 23 U/L Normal <=31 [facility] Comment on above: Performed By: #### L 501.5200, L501.9520, L501.2300, L500.4050, L100.0100 #### [facility] [address] [place], [address] Bilirubin [Mass/Vol] 0.83 mg/dL Normal 0.00-1.30 [facility] Comment on above: Performed By: #### L 501.5200, L501.9520, L501.2300, L500.4050, L100.0100 #### [facility] [address] [place], [address] BUN/CRE 24.4 RATIO High 10-20 [facility] Comment on above: Performed By: #### L 501.5200, L501.9520, L501.2300, L500.4050, L100.0100 #### [facility] [address] [place], [address] Calcium [Mass/Vol] 9.4 mg/dL Normal 7.6-11.0 [facility] Comment on above: Performed By: #### L 501.5200, L501.9520, L501.2300, L500.4050, L100.0100 #### [facility] [address] [place], [address] Chloride [Moles/Vol] 105 mmol/L Normal 98-108 [facility] Comment on above: Performed By: #### L 501.5200, L501.9520, L501.2300, L500.4050, L100.0100 #### [facility] [address] [place], [address] CO2 [Moles/Vol] 28.6 mmol/L Normal 21.0-32.0 [facility] Comment on above: Performed By: #### L 501.5200, L501.9520, L501.2300, L500.4050, L100.0100 #### [facility] [address] [place], [address] Creatinine [Mass/Vol] 0.67 mg/dL Low 0.70-1.20 [facility] Comment on above: Performed By: #### L 501.5200, L501.9520, L501.2300, L500.4050, L100.0100 #### [facility] [address] [place], [address] ECRCL 63.17 ml/min Normal 50-250 [facility] Comment on above: Performed By: #### L 501.5200, L501.9520, L501.2300, L500.4050, L100.0100 #### [facility] [address] [place], [address] GAP 10 Normal 5-15 [facility] Comment on above: Performed By: #### L 501.5200, L501.9520, L501.2300, L500.4050, L100.0100 #### [facility] [address] [place], [address] GFR/1.73 sq M.predicted among non-blacks MDRD (S/P/Bld) [Vol rate/Area] 89 mL/min/{1.73_m2} Normal >60 [facility] Comment on above: Result Comment: mL/m in/1.73m2 CKD-EPI Creatinine Equation (2020) Performed By: #### L 501.5200, L501.9520, L501.2300, L500.4050, L100.0100 #### [facility] [address] [place], [address] Globulin (S) [Mass/Vol] 3.0 g/dL Normal 2.2-4.2 [facility] Comment on above: Performed By: #### L 501.5200, L501.9520, L501.2300, L500.4050, L100.0100 #### [facility] [address] [place], [address] Glucose [Mass/Vol] 108 mg/dL High 70-99 [facility] Comment on above: Performed By: #### L 501.5200, L501.9520, L501.2300, L500.4050, L100.0100 #### [facility] [address] [place], [address] Potassium [Moles/Vol] 3.5 mmol/L Normal 3.3-5.1 [facility] Comment on above: Performed By: #### L 501.5200, L501.9520, L501.2300, L500.4050, L100.0100 #### [facility] [address] [place], [address] Sodium [Moles/Vol] 143 mmol/L Normal 133-145 [facility] Comment on above: Performed By: #### L 501.5200, L501.9520, L501.2300, L500.4050, L100.0100 #### [facility] [address] [place], [address] T PROT 6.5 g/dL Normal 5.9-8.4 [facility] Comment on above: Performed By: #### L 501.5200, L501.9520, L501.2300, L500.4050, L100.0100 #### [facility] [address] [place], [address] Urea nitrogen [Mass/Vol] 16 mg/dL Normal 4-19 [facility] Comment on above: Performed By: #### L 501.5200, L501.9520, L501.2300, L500.4050, L100.0100 #### [facility] [address] [place], [address] Electrocardiogram reportOrde red By: Pato Simmons on 01-18-2025 EKG study [facility] Cardiovascular Services [address] [place] [address] 12 Lead EKG 01/17/25 0528 MR#: [id number] Acct: [id number] Name: SAHARA MELÉNDEZ Rep #:[id number] : 1945 79 From: Pato dugan MD Attending Dr: DO Brittani Riley tatus: ADM IN Ordering Dr: Jacinto Flores MD Date: 01/17/25 Location: [facility] Sex: F C Admitted: 01/17/25 Test Reason [...] QT Abnormal ECG Confirmed by Pato Simmons ([id number]), acquisition editor CHRIS OROZCO ([id number]) on 01/18/2025 12:18:59 PM Referred By: Confirmed By: Pato Simmons 01/18/25 1219 Date _ Pato Simmons MD CC: Dr. Jacinto Flores MD; Dr. Veronica Louise DO; Dr. Rosendo Brown MD ~ Signed [facility] Work Phone: Eosinophil percentageOrdered By: Veronica Louise on 01-18-2025 Eosinophils/100 WBC (Bld) 2.5 % 0-5 [facility] Erythrocyte folate measureme nt with hematocritOrdered By: Veronica Louise on 01-18-2025 Hematocrit (Bld) [Volume fraction] 39.1 % 34.0-46.6 [facility] Gastric Emptying Studyon Gastric Emptying Study [facility] Imaging Services [address] [place] [address] Gastric Emptying Study MR#: [id number] Acct: [id number] Name: SAHARA MELÉNDEZ Rep #: [id number] : 1945 F 79 From: Dhara Wallis PCP: Dr. Rosendo Brown MD Status: ADM IN Study: Gastric Emptying Study Date of Exam: 01/18/25 Exam# [id number] Ordering Dr: Veronica Louise DO PROCEDURE: GASTRIC EMPTYING STUDY 01/18/2025 REASON FOR EXAM: NAUSEA COMPARISON: None. TECHNIQUE: The patient ingested a semi solid meal of oatmeal. There was no vomiting postprandially. Anterior and posterior planar images of the upper abdomen were obtained for a total of 60 minutes. Regions of interest were drawn, and a geometric mean was used to calculate a [id number]-nzgbl. Medications taken in the past 24 hours [...] semi solid phase gastric emptying. Reading Location: [place] [address] CC: Dr. Veronica Louise DO; Dr. Rosendo Brown MD Pillowcase Maker: Signed Normal [facility] Immature granulocytes/100 WB C Auto (Bld)Ordered By: Veronica Louise on 01-18-2025 Immature granulocytes/100 WBC (Bld) 0.400 % 0.0-0.9 [facility] Comment on above: IG% - Immature Granu locytes (promyelocytes, myelocytes and metamyelocytes) > 1% indicates that a LEFT SHIFT is Present. Magnesiumon 01-18-2025 Magnesium [Mass/Vol] 2.1 mg/dL Normal 1.5-2.2 [facility] Comment on above: Performed By: #### L 501.5200, L501.9520, L501.2300, L500.4050, L100.0100 #### [facility] [address] [place] [address]. [place], [address] Magnesium measurement (mass/ volume)Ordered By: Veronica Louise on 01-18-2025 Magnesium (Unsp spec) [Mass/Vol] 2.1 mg/dL 1.5-2.2 [facility] Monocyte percentageOrdered B y: Veronica Louise on 01-18-2025 Monocytes/100 WBC (Bld) 10.7 % High 0-[address] [facility] Neutrophil percentageOrdered By: Veronica Louise on 01-18-2025 Neutrophils/100 WBC (Bld) 67.9 % 47-70 [facility] Nucleated red blood cell per centageOrdered By: Veronica Louise on 01-18-2025 Nucleated RBC/100 WBC (Bld) [Ratio] 0 % 0-5 [facility] Phosphoruson 01-18-2025 Phosphate [Mass/Vol] 4.0 mg/dL Normal 2.7-4.5 [facility] Comment on above: Performed By: #### L 501.5200, L501.9520, L501.2300, L500.4050, L100.0100 #### [facility] [address] [facility] [place], [address] TSH DL <= 0.005 mIU/L QnOrde red By: Veronica Louise on 01-18-2025 TSH Qn 3.120 uIU/mL 0.300-4.20 0 [facility] Thyroid Stim Hormone (TSH)on 01-18-2025 TSH 3.120 uIU/mL Normal 0.300-4.20 0 [facility] Comment on above: Performed By: #### L 501.5200, L501.9520, L501.2300, L500.4050, L100.0100 #### [facility] [address] [place], [address] 12 Lead EKGon 01-17-2025 12 Lead EKG [facility] Cardiovascular Services [address] [place] [address] 12 Lead EKG 01/17/25 0528 MR#: [id number] Acct: [id number] Name: SAHARA MELÉNDEZ Rep #: [id number] : 1945 79 From: Pato Simmons MD Attending Dr: Dr. Veronica Louise, DO Status: ADM I N Ordering Dr: Jacinto Flores MD Date: 01/17/25 Location: [facility] Sex: F C Admitted: 01/17/25 Test Reason [...] QT Abnormal ECG Confirmed by Pato Simmons ([id number]), acquisition editor CHRIS OROZCO ([id number]) on 01/18/2025 12:18:59 PM Referred By: Confirmed By: Pato Simmons 01/18/251218 Date Pato Simmons MD CC: Dr. Jacinto Flores MD; Dr. Veronica Louise DO; Dr. Rosendo Brown MD Signed Normal [facility] Absolute lymphocyte countOrd ered By: Jacinto Flores on 01-17-2025 Lymphocytes Auto (Unsp spec) [#/Vol] 1.44 10*3/uL 0.83-4.51 [facility] Absolute neutrophil countOrd ered By: Jacinto Flores on 01-17-2025 Neutrophils (Bld) [#/Vol] 6.2 10*3/uL 2.0-7.7 [facility] Anion gap in Serum or Plasma Ordered By: Jacinto Flores on 01-17-2025 Anion gap [Moles/Vol] 10 mmol/L 5-15 [facility] Automated lymphocyte count a s percentage of total leukocytesOrdered By: Jacinto Flores on 01-17-2025 Lymphocytes/100 WBC Auto (Unsp spec) 16.5 % Low 19-41 [facility] BUN/creatinine ratioOrdered By: Jacinto Flores on 01-17-2025 Urea nitrogen/Creatinine [Mass ratio] 29.8 mg/mg High 10- [facility] Basic Metabolic Profile (BMP )on 01-17-2025 BUN/CRE 29.8 RATIO High 10- [facility] Comment on above: Performed By: #### L 503.7505, L501.4021, L100.0100, L500.2500 ####[facility] [address] [place], [place], [address] Calcium [Mass/Vol] 9.1 mg/dL Normal 7.6-11.0 [facility] Comment on above: Performed By: #### L 503.7505, L501.4021, L100.0100, L500.2500 ####[facility] [address] [place], [address] Chloride [Moles/Vol] 107 mmol/L Normal 98-108 [facility] Comment on above: Performed By: #### L 503.7505, L501.4021, L100.0100, L500.2500 ####[facility] [address] [place], [address] CO2 [Moles/Vol] 23.4 mmol/L Normal 21.0-32.0 [facility] Comment on above: Performed By: #### L 503.7505, L501.4021, L100.0100, L500.2500 ####[facility] [address] [place], [address] Creatinine [Mass/Vol] 0.63 mg/dL Low 0.70-1.20 [facility] Comment on above: Performed By: #### L 503.7505, L501.4021, L100.0100, L500.2500 ####[facility] [address] [place], [address] ECRCL 65.07 ml/min Normal 50-250 [facility] Comment on above: Performed By: #### L 503.7505, L501.4021, L100.0100, L500.2500 ####[facility] [address] [place], [address] GAP 10 Normal 5-15 [facility] Comment on above: Performed By: #### L 503.7505, L501.4021, L100.0100, L500.2500 ####[facility] [address] [place], [address] GFR/1.73 sq M.predicted among non-blacks MDRD (S/P/Bld) [Vol rate/Area] 91 mL/min/{1.73_m2} Normal >60 [facility] Comment on above: Result Comment: mL/m in/1.73m2 CKD-EPI Creatinine Equation (2020) Performed By: #### L 503.7505, L501.4021, L100.0100, L500.2500 ####[facility] [address] [place], [address] Glucose [Mass/Vol] 125 mg/dL High 70-99 [facility] Comment on above: Performed By: #### L 503.7505, L501.4021, L100.0100, L500.2500 ####[facility] [address] [place], [address] Potassium [Moles/Vol] 3.7 mmol/L Normal 3.3-5.1 [facility] Comment on above: Performed By: #### L 503.7505, L501.4021, L100.0100, L500.2500 ####[facility] [address] [place], [address] Sodium [Moles/Vol] 141 mmol/L Normal 133-145 [facility] Comment on above: Performed By: #### L 503.7505, L501.4021, L100.0100, L500.2500 ####[facility] [address] [place], [address] Urea nitrogen [Mass/Vol] 19 mg/dL Normal 4-19 [facility] Comment on above: Performed By: #### L 503.7505, L501.4021, L100.0100, L500.2500 ####[facility] [address] [place], [address] Basophil percentageOrdered B y: Jacinto Flores on 01-17-2025 Basophils/100 WBC (Bld) 0.7 % 0-[address] [facility] CBC W/Diff, Automatedon 05 Absolute Lymph 1.44 X10 3/uL Normal 0.83-4.51 [facility] Comment on above: Performed By: #### L 503.7505, L501.4021, L100.0100, L500.2500 ####[facility] [address] [place], [address] Absolute Neut 6.2 X10 3/uL Normal 2.0-7.7 [facility] Comment on above: Performed By: #### L 503.7505, L501.4021, L100.0100, L500.2500 ####[facility] [address] [place], [address] Basophils/100 WBC (Bld) 0.7 % Normal 0-[address] [facility] Comment on above: Performed By: #### L 503.7505, L501.4021, L100.0100, L500.2500 ####[facility] [address] [place], [address] Eosinophils/100 WBC (Bld) 3.0 % Normal 0-5 [facility] Comment on above: Performed By: #### L 503.7505, L501.4021, L100.0100, L500.2500 ####[facility] [address] [place], [address] Erythrocyte distribution width (RBC) [Ratio] 14.8 % High 11.6-14.6 [facility] Comment on above: Performed By: #### L 503.7505, L501.4021, L100.0100, L500.2500 ####[facility] [address] [place], [address] Hematocrit (Bld) [Volume fraction] 35.3 % Low 37-47 [facility] Comment on above: Performed By: #### L 503.7505, L501.4021, L100.0100, L500.2500 ####[facility] [address] [place], [address] Hemoglobin (Bld) [Mass/Vol] 11.7 g/dL Low 12.0-15.0 [facility] Comment on above: Performed By: #### L 503.7505, L501.4021, L100.0100, L500.2500 ####[facility] [address] [place], [address] IG% 0.300 Normal 0.0-0.9 [facility] Comment on above: Result Comment: IG% - Immature Granulocytes (promyelocytes, myelocytes and metamyelocytes) > 1% indicates that a LEFT SHIFT is Present. Performed By: #### L 503.7505, L501.4021, L100.0100, L500.2500 ####[facility] [address] [place], [address] Lymphocytes/100 WBC (Bld) 16.5 % Low 19-41 [facility] Comment on above: Performed By: #### L 503.7505, L501.4021, L100.0100, L500.2500 ####[facility] [address] [place], [address] MCH (RBC) [Entitic mass] 30.0 pg Normal 27.0-32.0 [facility] Comment on above: Performed By: #### L 503.7505, L501.4021, L100.0100, L500.2500 ####[facility] [address] [place], [address] MCHC (RBC) [Mass/Vol] 33.1 g/dL Normal 32-36 [facility] Comment on above: Performed By: #### L 503.7505, L501.4021, L100.0100, L500.2500 ####[facility] [address] [place], [address] MCV (RBC) [Entitic vol] 90.5 fL Normal 81-[address] [facility] Comment on above: Performed By: #### L 503.7505, L501.4021, L100.0100, L500.2500 ####[facility] [address] [place], [address] Monocytes/100 WBC (Bld) 8.2 % Normal 0-[address] [facility] Comment on above: Performed By: #### L 503.7505, L501.4021, L100.0100, L500.2500 ####[facility] [address] [place], [address] Neutrophils/100 WBC (Bld) 71.3 % High 47-70 [facility] Comment on above: Performed By: #### L 503.7505, L501.4021, L100.0100, L500.2500 ####[facility] [address] [place], [address] Nucleated RBC (Bld) [#/Vol] 0 10*3/uL Normal 0-5 [facility] Comment on above: Performed By: #### L 503.7505, L501.4021, L100.0100, L500.2500 ####[facility] [address] [place], [address] Platelet mean volume (Bld) [Entitic vol] 10.2 fL Normal 6.2-12.0 [facility] Comment on above: Performed By: #### L 503.7505, L501.4021, L100.0100, L500.2500 ####[facility] [address] [place], [address] Platelets (Bld) [#/Vol] 233 10*3/uL Normal 150-450 [facility] Comment on above: Performed By: #### L 503.7505, L501.4021, L100.0100, L500.2500 ####[facility] [address] [place], [address] RBC (Bld) [#/Vol] 3.90 10*6/uL Low 4.2-5.4 [facility] Comment on above: Performed By: #### L 503.7505, L501.4021, L100.0100, L500.2500 ####[facility] [address], [address] RDW SD 47.9 fl High 35.1-43.9 [facility] Comment on above: Performed By: #### L 503.7505, L501.4021, L100.0100, L500.2500 ####[facility] [address] [place], [address] WBC (Bld) [#/Vol] 8.7 10*3/uL Normal 4.4-11.0 [facility] Comment on above: Performed By: #### L 503.7505, L501.4021, L100.0100, L500.2500 ####[facility] [address] [place], [address] Carbon dioxide, total [Moles /volume] in Central venous bloodOrdered By: Jacinto Flores on 01-17-2025 CO2 [Moles/Vol] 23.4 mmol/L 21.0-32.0 [facility] Chest 1 View (Portable)on Chest 1 View (Portable) [facility] Imaging Services [address] [place] [address] Chest 1 View (Portable) MR#: [id number] Acct: [id number] Name: SAHARA MELÉNDEZ Rep #: [id number] : 1945 F 79 From: Pato Lin i, MD PCP: Dr. Rosendo Brown MD Status: PRE ER Study: Chest 1 View (Portable) Date of Exam: 01/17/25 Exam# [id number] Ordering Dr: Jacinto Flores MD PROCEDURE: CHEST [...] Follow-up until clearing is recommended. Reading Location: [id number] CC: Dr. Jacinto Flores MD; Dr. Rosendo Brown MD Pillowcase Maker: Signed Normal [facility] Chloride assayOrdered By: Irene Flores on 01-17-2025 Chloride [Moles/Vol] 107 mmol/L 98-108 [facility] Consultation - Cardiologyon 01-17-2025 Consultation - Cardiology [facility] Medical Records Department [address] [place] [address] Consultation - Cardiology 01/17/25 0743 MR#: [id number] Acct: [id number] Name: SAHARA MELÉNDEZ Rep #: [id number] : 1945 79 From: Pato Simmons MD PCP: Dr. Rosendo Brown MD Status:REG ER Location: ED Assessment Plan Assessment/Plan (1) Paroxysmal atrial fibrillation: PLAN: Patient was documented to be in atrial fibrillation on 01/16/2025 in the [facility] office at a heart rate [...] several days. She was evaluated in the [facility] office yesterday and was found [...] She does (more content not included)... Normal [facility] Echo Completeon 01-17-2025 Echo Complete [facility] Cardiovascular Services [address] [facility] [place] [address] Echo Complete 01/17/25 1034 MR#: [id number] Acct: [id number] Name: SAHARA MELÉNDEZ Rep #: [id number] : 1945 79 From: Liat Hale MD [...] Dictated: 01/17/25 1034 Date Transcribed: 01/17/25 1231 Pillowcase Maker: Signed Normal [facility] Echocardiogram study reportO rdered By: Liat Hale on 01-17-2025 Study report [facility] Cardiovascular Services [address] [place] [address] Echo Complete 01/17/25 1034 MR#: [id number] Acct: [id number] Name: SAHARA MELÉNDEZ Rep #:[id number] : 1945 79 From: Liat Hale MD Attending Dr: Dr. Veronica Louise DO S tatus: ADM IN Ordering Dr: Veronica Louise DO Date: 05/06 Location: [facility] Sex: F C Admitted: 01/17/25 Reason For [...] Dictated: 01/17/25 1034 Date Transcribed: 01/17/25 1231 Pillowcase Maker: Signed [facility] Work Phone: Emergency Department Summary on 01-17-2025 Emergency Department Summary [facility] Medical Records Department [address] [place] [address] Emergency Department Summary 01/17/25 MR#: [id number] Acct: [id number] Name: SAHARA MELÉNDEZ Rep #: [id number] : 1945 79 From: Jacinto Flores MD [...] some swelling in her legs she thinks. [facility] Medical History Dyspnea on exertion Wears [...] intake: never (more content not included)... Normal [facility] Eosinophil percentageOrdered By: Jacinto Flores on 01-17-2025 Eosinophils/100 WBC (Bld) 3.0 % 0-5 [facility] Erythrocyte distribution wid th ratioOrdered By: Jacinto Flores on 01-17-2025 Erythrocyte distribution width (RBC) [Ratio] 14.8 % High 11.6-14.6 [facility] Erythrocyte distribution wid th standard deviationOrdered By: Jacinto Flores on 01-17-2025 Erythrocyte distribution width (RBC) [Ratio] 47.9 fl High 35.1-43.9 [facility] Glomerular filtration rate ( GFR) estimation/1.73 sq m using serum, plasma, or whole bOrdered By: Jacinto Flores on 01-17-2025 GFR/1.73 sq M.predicted among non-blacks MDRD (S/P/Bld) [Vol rate/Area] 91 mL/min/{1.73_m2} >60 [facility] Comment on above: mL/min/1.73m2 CKD-EP I Creatinine Equation (2020) H AND P Exam - Hospitaliston 01-17-2025 H&P Exam - Hospitalist [facility] Medical Records Department [address] [place] [address] H P Exam - Hospitalist 01/17/25 0715 MR#: [id number] Acct: [id number] Name: SAHARA MELÉNDEZ Rep #: [id number] : 1945 79 From: Veronica Louise DO PCP: Dr. Rosendo Brown MD Status:ADM IN Location: [facility] [id number] HPI - General General Date of Admission: 01/17/25 Date of Service: 01/17/25 Chief Complaint: Shortness of breath HPI Narrative SAHARA MELÉNDEZ, is a 79 F who presented to the emergency department [facility] on 01/17/2025 with a chief complaint of shortness of breath. She reported been ongoing for about a week and she came in around 5:30 in the morning because it had clinically gotten worse. 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 [facility] Medical History Dyspnea on exertion Wears glasses [...] Lomotil) Ad (more content not included)... Normal [facility] Hematocrit Auto (Bld) [Volum e fraction]Ordered By: Jacinto Flores on 01-17-2025 Hematocrit (Bld) [Volume fraction] 35.3 % Low 37-47 [facility] Hemoglobin measurementOrdere d By: Jacinto Flores on 01-17-2025 Hemoglobin (Bld) [Mass/Vol] 11.7 g/dL Low 12.0-15.0 [facility] Immature granulocytes/100 WB C Auto (Bld)Ordered By: Jacinto Flores on 01-17-2025 Immature granulocytes/100 WBC (Bld) 0.300 % 0.0-0.9 [facility] Comment on above: IG% - Immature Granu locytes (promyelocytes, myelocytes and metamyelocytes) > 1% indicates that a LEFT SHIFT is Present. L499.0042on 01-17-2025 Trop T High Sen 12 ng/L Normal <=14 [facility] Comment on above: Performed By: #### L 499.0042 ####[facility] [address] [place], [place], [address] Trop T High Sen 11 ng/L Normal <=14 [facility] Comment on above: Performed By: #### L 499.0042 ####[facility] [address] [place], [address] L499.0043on 01-17-2025 Trop T High Sen 13 ng/L Normal <=14 [facility] Comment on above: Performed By: #### L 501.5200, L501.9520, L501.2300, L500.4050, L100.0100 #### [facility] [address] [place], [address] Trop T High Sen Normal <=14 [facility] Comment on above: Result Comment: REST ARTED THE SER. Performed By: #### L 501.5200, L501.9520, L501.2300, L500.4050, L100.0100 #### [facility] [address] [place], [address] L501.4021on 01-17-2025 Trop T High Sen 13 ng/L Normal <=14 [facility] Comment on above: Performed By: #### L 501.4021 ####[facility] [address] [place], [address] Trop T High Sen 10 ng/L Normal <=14 [facility] Comment on above: Performed By: #### L 503.7505, L501.4021, L100.0100, L500.2500 ####[facility] [address] [place], [address] L503.7505on 01-17-2025 Natriuretic peptide B (Bld) [Mass/Vol] 2630 pg/mL High <=1800 [facility] Comment on above: Result Comment: Hear t Failure Unlikely: < 300 pg/mL Heart Failure Likely < 50 Years: > 450 pg/mL 50-75 Years: > 900 pg/mL >75 Years: > 1800 pg/mL Performed By: #### L 503.7505, L501.4021, L100.0100, L500.2500 ####[facility] [address] [place], [address] MCV (mean corpuscular volume ) determinationOrdered By: Jacinto Flores on 01-17-2025 MCV (RBC) [Entitic vol] 90.5 fL 81-[address] [facility] Mean corpuscular hemoglobin (MCH) determinationOrdered By: Jacinto Flores on 01-17-2025 MCH (RBC) [Entitic mass] 30.0 pg 27.0-32.0 [facility] Mean corpuscular hemoglobin concentration (MCHC) determinationOrdered By: Jacinto Flores on 01-17-2025 MCHC (RBC) [Mass/Vol] 33.1 g/dL 32-36 [facility] Mean platelet volume determi nationOrdered By: Jacinto Flores on 01-17-2025 Platelet mean volume (Bld) [Entitic vol] 10.2 fL 6.2-12.0 [facility] Monocyte percentageOrdered B y: Jacinto Flores on 01-17-2025 Monocytes/100 WBC (Bld) 8.2 % 0-[address] [facility] Natriuretic peptide.B prohor edis N-Terminal [Mass/volume] in Serum or PlasmaOrdered By: Jacinto Flores on 01-17-2025 Natriuretic peptide.B prohormone N-Terminal [Mass/Vol] 2630 pg/mL High <1800 [facility] Comment on above: Heart Failure Unlike ly: < 300 pg/mLHeart Failure Likely< 50 Years: > 450 pg/mL50-75 Years: > 900 pg/mL>75 Years: > 1800 pg/mL Neutrophil percentageOrdered By: Jacinto Flores on 01-17-2025 Neutrophils/100 WBC (Bld) 71.3 % High 47-70 [facility] Nucleated red blood cell per centageOrdered By: Jacinto Flores on 01-17-2025 Nucleated RBC/100 WBC (Bld) [Ratio] 0 % 0-5 [facility] Platelet countOrdered By: Irene Flores on 01-17-2025 Platelets (Bld) [#/Vol] 233 10*3/uL 150-450 [facility] Potassium measurement (mass/ volume)Ordered By: Jacinto Flores on 01-17-2025 Potassium (Unsp spec) [Mass/Vol] 3.7 mmol/L 3.3-5.1 [facility] RBC Auto (Bld) [#/Vol]Ordere d By: Jacinto Flores on 01-17-2025 RBC (Bld) [#/Vol] 3.90 10*6/uL Low 4.2-5.4 [facility] Serum creatinine measurement (mass/volume)Ordered By: Jacinto Flores on 01-17-2025 Creatinine [Mass/Vol] 0.63 mg/dL Low 0.70-1.20 [facility] Serum glucose measurement (m ass/volume)Ordered By: Jacinto Flores on 01-17-2025 Glucose [Mass/Vol] 125 mg/dL High 70-99 [facility] Serum or plasma calcium dahlia urement (mass/volume)Ordered By: Jacinto Flores on 01-17-2025 Calcium [Mass/Vol] 9.1 mg/dL 7.6-11.0 [facility] Serum or plasma urea nitroge n measurement (mass/volume)Ordered By: Jacinto Flores on 01-17-2025 Urea nitrogen [Mass/Vol] 19 mg/dL 4-19 [facility] Sodium levelOrdered By: Kole Flores on 01-17-2025 Sodium [Moles/Vol] 141 mmol/L 133-145 [facility] Troponin T.cardiac [Mass/vol ume] in Serum or Plasma by High sensitivity methodOrdered By: Veronica Louise on 01-17-2025 Troponin T.cardiac High sensitivity method [Mass/Vol] 13 ng/L <14 [facility] Comment on above: Delta: 10 on Troponin T.cardiac High sensitivity method [Mass/Vol] 12 ng/L <14 [facility] Troponin T.cardiac [Mass/vol ume] in Serum or Plasma by High sensitivity methodOrdered By: Jacinto Flores on 01-17-2025 Troponin T.cardiac High sensitivity method [Mass/Vol] 11 ng/L <14 [facility] Troponin T.cardiac High sensitivity method [Mass/Vol] 10 ng/L <14 [facility] Vitamin B12on 01-17-2025 Cobalamin (Vitamin B12) [Mass/Vol] 842 pg/mL Normal 180-914 [facility] Comment on above: Performed By: #### L 503.0106, L3100.1725 ####[facility] [address] [place], [address] Vitamin B12 ser/plasOrdered By: Veronica Louise on 01-17-2025 Cobalamin (Vitamin B12) [Mass/Vol] 842 pg/mL 180-914 [facility] White blood cell (WBC) count Ordered By: Jacinto Flores on 01-17-2025 WBC (Bld) [#/Vol] 8.7 10*3/uL 4.4-11.0 [facility] Anion gap in Serum or Plasma Ordered By: Antonio San on 01-16-2025 Anion gap [Moles/Vol] 9 mmol/L 5-15 [facility] BUN/creatinine ratioOrdered By: Antonio San on 01-16-2025 Urea nitrogen/Creatinine [Mass ratio] 21.6 mg/mg High 10-20 [facility] Bilirubin, totalOrdered By: Antonio San on 01-16-2025 Bilirubin [Mass/Vol] 0.51 mg/dL 0.00-1.30 [facility] CNPNon 01-16-2025 [facility] SAHARA MELÉNDEZ ([id number]) 1945 F NFR Date Time Provider Department 01/16/25 [facility] During your visit today, we recorded the [...] called in and reports Pt is in [facility] and wanted to know if providers office had sent information to Dr Dvaid's office. I let him know they faxed information yesterday. Allergies As of Date: 01/16/2025 Noted Allergy Reaction BENTYL (DICYCLOMINE HCL) 08/13/2013 1 - Mental Status Change CIPROFLOXACIN 05/24/2014 4 - Hives 14 - Other: See Comments Comments: IV Cipro only Pain at IV site COMPAZINE (PROCHLORPERAZINE EDISY*09/07/2005 5 - Intolerance Comments: [place] like she was coming out of her [...] gastritis w (more content not included)... Normal [facility] Carbon dioxide, total [Moles /volume] in Central venous bloodOrdered By: Antonio San on 01-16-2025 CO2 [Moles/Vol] 26.4 mmol/L 21.0-32.0 [facility] Cardiology Visit Reporton Cardiology Visit Report [facility] 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 Normal [facility] Chest PA and Lateralon 01-16 Chest PA and Lateral [facility] [address] [place], [place] [address] Chest PA and Lateral MR#: [id number] Acct: [id number] Name: SAHARA MELÉNDEZ Rep #: [id number] : 1945 F 79 From: Bandar Jane MD PCP: Dr. Rosendo Brown MD Status: REG CLI Study: Chest PA and Lateral Date of Exam: 01/16/25 Exam# [id number] Ordering Dr: Antonio San NP [employer] PROCEDURE: CHEST PA AND LATERAL 01/16/2025 REASON FOR EXAM: PRE-OPERATIVE: [facility] TECHNIQUE: Frontal and lateral views of the [...] silhouette is enlarged for technique. Reading Location: [facility] CC: [employer] Antonio San; Dr. Rosendo Brown MD Pillowcase Maker: Signed Normal [facility] Chloride assayOrdered By: Barbara San on 01-16-2025 Chloride [Moles/Vol] 107 mmol/L 98-108 [facility] Comprehensive Metabolic Prof ilon 01-16-2025 Albumin [Mass/Vol] 3.7 g/dL Normal 3.4-4.8 [facility] Comment on above: Performed By: #### L 500.4050, L501.5200, L501.9520 ####[facility] [address] [place], [address] Albumin/Globulin [Mass ratio] 1.2 {ratio} Normal 0.9-2.4 [facility] Comment on above: Performed By: #### L 500.4050, L501.5200, L501.9520 ####[facility] [address] [place], [address] ALK PHOS 76 U/L Normal 35-104 [facility] Comment on above: Performed By: #### L 500.4050, L501.5200, L501.9520 ####[facility] [address] [place], [address] ALT [Catalytic activity/Vol] 23 U/L Normal <=34 [facility] Comment on above: Performed By: #### L 500.4050, L501.5200, L501.9520 ####[facility] [address] [place], [address] AST [Catalytic activity/Vol] 20 U/L Normal <=31 [facility] Comment on above: Performed By: #### L 500.4050, L501.5200, L501.9520 ####[facility] [address] [place], [address] Bilirubin [Mass/Vol] 0.51 mg/dL Normal 0.00-1.30 [facility] Comment on above: Performed By: #### L 500.4050, L501.5200, L501.9520 ####[facility] [address] [place], [address] BUN/CRE 21.6 RATIO High 10-20 [facility] Comment on above: Performed By: #### L 500.4050, L501.5200, L501.9520 ####[facility] [address] [place], [address] Calcium [Mass/Vol] 9.4 mg/dL Normal 7.6-11.0 [facility] Comment on above: Performed By: #### L 500.4050, L501.5200, L501.9520 ####[facility] [address] [place], [address] Chloride [Moles/Vol] 107 mmol/L Normal 98-108 [facility] Comment on above: Performed By: #### L 500.4050, L501.5200, L501.9520 ####[facility] [address] [place], [address] CO2 [Moles/Vol] 26.4 mmol/L Normal 21.0-32.0 [facility] Comment on above: Performed By: #### L 500.4050, L501.5200, L501.9520 ####[facility] [address] [place], [address] Creatinine [Mass/Vol] 0.65 mg/dL Low 0.70-1.20 [facility] Comment on above: Performed By: #### L 500.4050, L501.5200, L501.9520 ####[facility] [address] [place], [address] GAP 9 Normal 5-15 [facility] Comment on above: Performed By: #### L 500.4050, L501.5200, L501.9520 ####[facility] [address] [place], [address] GFR/1.73 sq M.predicted among non-blacks MDRD (S/P/Bld) [Vol rate/Area] 90 mL/min/{1.73_m2} Normal >60 [facility] Comment on above: Result Comment: mL/m in/1.73m2 CKD-EPI Creatinine Equation (2020) Performed By: #### L 500.4050, L501.5200, L501.9520 ####[facility] [address] [place], [address] Globulin (S) [Mass/Vol] 3.3 g/dL Normal 2.2-4.2 [facility] Comment on above: Performed By: #### L 500.4050, L501.5200, L501.9520 ####[facility] [address] [place], [address] Glucose [Mass/Vol] 106 mg/dL High 70-99 [facility] Comment on above: Performed By: #### L 500.4050, L501.5200, L501.9520 ####[facility] [address] [place], [address] Potassium [Moles/Vol] 4.0 mmol/L Normal 3.3-5.1 [facility] Comment on above: Performed By: #### L 500.4050, L501.5200, L501.9520 ####[facility] [address] [place], [address] Sodium [Moles/Vol] 143 mmol/L Normal 133-145 [facility] Comment on above: Performed By: #### L 500.4050, L501.5200, L501.9520 ####[facility] [address] [place], [address] T PROT 7.0 g/dL Normal 5.9-8.4 [facility] Comment on above: Performed By: #### L 500.4050, L501.5200, L501.9520 ####[facility] [address] [place], [address] Urea nitrogen [Mass/Vol] 14 mg/dL Normal 4-19 [facility] Comment on above: Performed By: #### L 500.4050, L501.5200, L501.9520 ####[facility] [address] [place], [address] Glomerular filtration rate ( GFR) estimation/1.73 sq m using serum, plasma, or whole bOrdered By: Antonio San on 01-16-2025 GFR/1.73 sq M.predicted among non-blacks MDRD (S/P/Bld) [Vol rate/Area] 90 mL/min/{1.73_m2} >60 [facility] Comment on above: mL/min/1.73m2 CKD-EP I Creatinine Equation (2020) Laboratory - Chemistry and C hemistry - challengeOrdered By: Antonio San on 01-16-2025 AST [Catalytic activity/Vol] 20 U/L <32 [facility] Magnesiumon 01-16-2025 Magnesium [Mass/Vol] 2.1 mg/dL Normal 1.5-2.2 [facility] Comment on above: Performed By: #### L 500.4050, L501.5200, L501.9520 ####[facility] [address] [place], [address] Magnesium measurement (mass/ volume)Ordered By: Antonio San on 01-16-2025 Magnesium (Unsp spec) [Mass/Vol] 2.1 mg/dL 1.5-2.2 [facility] Potassium measurement (mass/ volume)Ordered By: Antonio San on 01-16-2025 Potassium (Unsp spec) [Mass/Vol] 4.0 mmol/L 3.3-5.1 [facility] Serum creatinine measurement (mass/volume)Ordered By: Antonio San on 01-16-2025 Creatinine [Mass/Vol] 0.65 mg/dL Low 0.70-1.20 [facility] Serum globulin measurementOr dered By: Antonio San on 01-16-2025 Globulin (S) [Mass/Vol] 3.3 g/dL 2.2-4.2 [facility] Serum glucose measurement (m ass/volume)Ordered By: Antonio San on 01-16-2025 Glucose [Mass/Vol] 106 mg/dL High 70-99 [facility] Serum or plasma alanine gonsalves otransferase (ALT) measurementOrdered By: Antonio San on 01-16-2025 ALT [Catalytic activity/Vol] 23 U/L <35 [facility] Serum or plasma albumin dahlia urement (mass/volume)Ordered By: Antonio San on 01-16-2025 Albumin [Mass/Vol] 3.7 g/dL 3.4-4.8 [facility] Serum or plasma albumin/glob ulin mass ratioOrdered By: Antonio San on 01-16-2025 Albumin/Globulin [Mass ratio] 1.2 {ratio} 0.9-2.4 [facility] Serum or plasma alkaline abdullahi sphatase measurementOrdered By: Antonio San on 01-16-2025 ALP [Catalytic activity/Vol] 76 U/L 35-104 [facility] Serum or plasma calcium dahlia urement (mass/volume)Ordered By: Antonio San on 01-16-2025 Calcium [Mass/Vol] 9.4 mg/dL 7.6-11.0 [facility] Serum or plasma urea nitroge n measurement (mass/volume)Ordered By: Antonio San on 01-16-2025 Urea nitrogen [Mass/Vol] 14 mg/dL 4-19 [facility] Sodium levelOrdered By: Antonio San on 01-16-2025 Sodium [Moles/Vol] 143 mmol/L 133-145 [facility] TSH DL <= 0.005 mIU/L QnOrde red By: Antonio San on 01-16-2025 TSH Qn 3.310 uIU/mL 0.300-4.20 0 [facility] Thyroid Stim Hormone (TSH)on 01-16-2025 TSH 3.310 uIU/mL Normal 0.300-4.20 0 [facility] Comment on above: Performed By: #### L 500.4050, L501.5200, L501.9520 ####[facility] [address] [place], [place], [address] Total proteinOrdered By: Yoel San on 01-16-2025 Protein [Mass/Vol] 7.0 g/dL 5.9-8.4 [facility] C diff Tox gens Stl Ql RADHA+p robeon 01-14-2025 C. difficile toxin genes RADHA+probe Ql (Stl) Negative Normal Negative for C. difficile toxin by PCR [facility] Comment on above: Order Comment: Speci men Type: STOOL SPECIMENOrdering Facility: [facility] Address: [address] [place] [address] Performed By: #### F [facility], [address]-5 ####[facility] LABCLIA [id number] SAR[address] LEN[address] [place] CNPNon 01-14-2025 CNPN Telephone [facility] SAHARA MELÉNDEZ ([id number]) 1945 F NFR Date Time Provider Department 01/14/25 ROSENDO BROWN [facility] During your visit today, we recorded [...] COMPAZINE (PROCHLORPERAZINE EDISY*09/07/2005 5 - Intolerance Comments: [place] like she was coming out of her skin DILAUDID (HYDROMORPHONE (BULK)) 09/07/2005 5 - Intolerance E-MYCIN (ERYTHROMYCIN) 09/07/2005 8 - GI Upset LATEX 07/26/2007 2 - Rash Date Reviewed: 01/11/2025 Reviewed by: Mya Corbin MA - Fully Assessed Reason for Visit: Results [95] Primary Visit Diagnosis:Anemia, unspecified type [D64.9] Order(s):COMPLETE BLOOD COUNT AND DIFFERENTIAL [SQCBCDIF] Order #: [id number] FUTURE IRON AND TIBC [SQIRON] Order #: [id number] FUTURE VITAMIN B12 [SQB12] Order #: [id number] FUTURE FOLATE, SERUM [SQSERFOL] Order #: [id number] FUTURE FERRITIN [SQFERR] Order #: [id number] FUTURE IMMUNOCHEMICAL FECAL OCCULT BLOOD TEST [SQIFOBT] Order #: [id number] FUTURE Prescriptions as of 01/14/2025 - atorvastatin (LIPITOR) 40 mg tablet Take 1 tablet by mouth once daily. - CPAP/BIPAP/OTHER Type .CPAPSettings into a note to see current settings/supplies/DME information. - colestipol (COLESTID) 1 gram tablet Take 1 tablet by mouth once daily. Dr Daivd - albuterol HFA (VENTOLIN HFA) 90 mcg/actuation [...] [M19.90] O (more content not included)... Normal [facility] FECAL LACTOFERRIN/LEUKOCYTES on 01-14-2025 Lactoferrin IA Ql (Stl) Positive for lac toferrin, which may indicate presence of fecal white blood cells Abnormal Negative [facility] Comment on above: Order Comment: Speci men Type: STOOL SPECIMENOrdering Facility: [facility] Address: [address] [place] [address] Performed By: #### F ECWBC, 90344-7 ####[facility] LABIA [id number] [place] [address] [place] G lamblia+Cryptosp Ag Stl Ql IAon 01-14-2025 G. lamblia+Cryptosporidium sp Ag IA Ql (Stl) CRYPTOSPORIDIUM ANTIGEN BY EIA: Negative for Cryptosporidium by EIA. GIARDIA ANTIGEN BY EIA: Negative for Giardia lamblia by EIA. Normal [facility] Comment on above: Performed By: #### 7 9390-1, 67452-2 ####[facility] LABIA [id number] [place] [address] [place] Gastrointestinal pathogens i dentified RADHA+probe Nom (Stl)on 01-14-2025 Campylobacter sp DNA RADHA+probe Nom (Unsp spec) Not detected Normal Not Detected [facility] Comment on above: Order Comment: Speci men Type: STOOL SPECIMENOrdering Facility: [facility] Address: [address] [place] [address] Performed By: #### 7 9390-1, 40138-9 ####[facility] LABIA [id number] [address] [place] Salmonella sp DNA RADHA+probe Ql (Unsp spec) Not detected Normal Not Detected [facility] Comment on above: Order Comment: Speci men Type: STOOL SPECIMENOrdering Facility: [facility] Address: [address] [place] [address] Performed By: #### 7 9390-1, 58589-4 ####[facility] LABCLIA [id number] [address] [place] Shiga toxin stx gene RADHA+probe Nom (Unsp spec) Not detected Normal Not Detected [facility] Comment on above: Order Comment: Speci men Type: STOOL SPECIMENOrdering Facility: [facility] Address: [address] [place] [address] Performed By: #### 7 9390-1, 28855-7 ####[facility] LABCLIA [id number] [address] [place] Shigella sp DNA RADHA+probe Ql (Unsp spec) Not detected Normal Not Detected [facility] Comment on above: Order Comment: Speci men Type: STOOL SPECIMENOrdering Facility: [facility] Address: [address] [place] [address] Performed By: #### 7 9390-1, 80389-8 ####[facility] LABIA [id number] [place] [address] [place] Basic metabolic 2000 panelon 01-11-2025 Anion gap [Moles/Vol] 11 mmol/L Normal 8-15 [facility] Comment on above: Order Comment: Speci men Type: BLOOD SPECIMENOrdering Facility: [facility] Address: [address] [place] [address] Performed By: #### 2 4321-2 ####[facility] LABCLIA [id number] [place] [id number] [place] Calcium [Mass/Vol] 9.4 mg/dL Normal 8.5-10.2 [facility] Comment on above: Order Comment: Speci men Type: BLOOD SPECIMENOrdering Facility: [facility] Address: [address] [place] [address] Performed By: #### 2 4321-2 ####[facility] LABCLIA [id number] [place] [id number] [place] Chloride [Moles/Vol] 107 mmol/L Normal 98-107 [facility] Comment on above: Order Comment: Speci men Type: BLOOD SPECIMENOrdering Facility: [facility] Address: [address] [place] [address] Performed By: #### 2 4321-2 ####[facility] LABCLIA [id number] [place] [address] [place] CO2 [Moles/Vol] 26 mmol/L Normal 22-30 [facility] Comment on above: Order Comment: Speci men Type: BLOOD SPECIMENOrdering Facility: [facility] Address: [address] [place] [address] Performed By: #### 2 4321-2 ####[facility] LABCLIA [id number] [place] [address] [place] Creatinine [Mass/Vol] 0.77 mg/dL Normal 0.58-0.96 [facility] Comment on above: Order Comment: Speci men Type: BLOOD SPECIMENOrdering Facility: [facility] Address: [address] [place] [address] Performed By: #### 2 4321-2 ####[facility] LABCLIA [id number] [place] [id number] [place] Creatinine and Glomerular filtration rate.predicted panel (S/P/Bld) 79 mL/min/1.73m??? Normal >=60 [facility] Comment on above: Order Comment: Speci men Type: BLOOD SPECIMENOrdering Facility: [facility] Address: [address] [place] [address] Result Comment: Antoinette mated Glomerular Filtration Rate [...] actual GFR. Performed By: #### 2 4321-2 ####[facility] LABIA [id number] [place] [address] [place] Glucose [Mass/Vol] 106 mg/dL High 74-99 [facility] Comment on above: Order Comment: Santhosh mullins Type: BLOOD SPECIMENOrdering Facility: [facility] Address: [address] [place] [address] Result Comment: The [place] Diabetes Association (ADA) provides guidance for cutoff [...] Standards of Medical Care in Diabetes 2016, [place] Diabetes Association. Diabetes Care. 2016.39(Suppl 1). Performed By: #### 2 4321-2 ####[facility] LABIA [id number] [address] [address] [place] Potassium [Moles/Vol] 4.3 mmol/L Normal 3.7-5.1 [facility] Comment on above: Order Comment: Santhosh mullins Type: BLOOD SPECIMENOrdering Facility: [facility] Address: [address] [place] [id number] Performed By: #### 2 4321-2 ####[facility] LABIA [id number] [address] [address] [place] Sodium [Moles/Vol] 144 mmol/L Normal 136-144 [facility] Comment on above: Order Comment: Speci men Type: BLOOD SPECIMENOrdering Facility: [facility] Address: [address] [place] [address] Performed By: #### 2 4321-2 ####[facility] LABCLIA [id number] [place] [address] [place] Urea nitrogen [Mass/Vol] 18 mg/dL Normal 7-21 [facility] Comment on above: Order Comment: Speci men Type: BLOOD SPECIMENOrdering Facility: [facility] Address: [address] [place] [address] Performed By: #### 2 4321-2 ####[facility] LABCLIA [id number] [place] [address] [place] CBC W Auto Differential pane l (Bld)on 01-11-2025 Basophils (Bld) [#/Vol] 0.06 10*3/uL Normal <0.11 [facility] Comment on above: Order Comment: Speci men Type: BLOOD SPECIMENOrdering Facility: [facility] Address: [address] [place] [address] Performed By: #### 5 7021-8 ####[facility] LABCLIA [id number] [place] [address] [place] Basophils/100 WBC (Bld) 0.6 % Normal [facility] Comment on above: Order Comment: Speci men Type: BLOOD SPECIMENOrdering Facility: [facility] Address: [address] [place] [address] Performed By: #### 5 7021-8 ####[facility] LABCLIA [id number] [place] [place] [address] [place] Differential cell count method Nom (Bld) Auto Normal [facility] Comment on above: Order Comment: Speci men Type: BLOOD SPECIMENOrdering Facility: [facility] Address: [address] [place], [place] [address] Performed By: #### 5 7021-8 ####[facility] LABCLIA [id number] [place] [address] [place] Eosinophils (Bld) [#/Vol] 0.15 10*3/uL Normal <0.46 [facility] Comment on above: Order Comment: Speci men Type: BLOOD SPECIMENOrdering Facility: [facility] Address: [address] [place] [address] Performed By: #### 5 7021-8 ####[facility] LABCLIA [id number] [place] [address] [place] Eosinophils/100 WBC (Bld) 1.5 % Normal [facility] Comment on above: Order Comment: Speci men Type: BLOOD SPECIMENOrdering Facility: [facility] Address: [address] [place] [address] Performed By: #### 5 7021-8 ####[facility] LABCLIA [id number] [address], [place] [address] [place] Erythrocyte distribution width (RBC) [Ratio] 14.2 % Normal 11.5-15.0 [facility] Comment on above: Order Comment: Speci men Type: BLOOD SPECIMENOrdering Facility: [facility] Address: [address] [place] [address] Performed By: #### 5 7021-8 ####[facility] LABCLIA [id number] [place] [address] [place] Hematocrit (Bld) [Volume fraction] 34.9 % Low 36.0-46.0 [facility] Comment on above: Order Comment: Speci men Type: BLOOD SPECIMENOrdering Facility: [facility] Address: [address] [place] [address] Performed By: #### 5 7021-8 ####[facility] LABCLIA [id number] [place] [address] [place] Hemoglobin (Bld) [Mass/Vol] 11.3 g/dL Low 11.5-15.5 [facility] Comment on above: Order Comment: Speci men Type: BLOOD SPECIMENOrdering Facility: [facility] Address: [address] [place] [address] Performed By: #### 5 7021-8 ####[facility] LABCLIA [id number] [place] [address] [place] Immature granulocytes (Bld) [#/Vol] 0.03 10*3/uL Normal <0.10 [facility] Comment on above: Order Comment: Speci men Type: BLOOD SPECIMENOrdering Facility: [facility] Address: [address] [place] [address] Performed By: #### 5 7021-8 ####[facility] LABCLIA [id number] [place] [address] [place] Immature granulocytes/100 WBC (Bld) 0.3 % Normal [facility] Comment on above: Order Comment: Speci men Type: BLOOD SPECIMENOrdering Facility: [facility] Address: [address] [place] [address] Performed By: #### 5 7021-8 ####[facility] LABCLIA [id number] [place] [address] [place] Lymphocytes (Bld) [#/Vol] 1.82 10*3/uL Normal 1.00-4.00 [facility] Comment on above: Order Comment: Speci men Type: BLOOD SPECIMENOrdering Facility: [facility] Address: [address] [place] [address] Performed By: #### 5 7021-8 ####[facility] LABCLIA [id number] [place] [address] [place] Lymphocytes/100 WBC (Bld) 18.7 % Normal [facility] Comment on above: Order Comment: Speci men Type: BLOOD SPECIMENOrdering Facility: [facility] Address: [address] [place] [address] Performed By: #### 5 7021-8 ####[facility] LABIA [id number] [place] [address] [place] MCH (RBC) [Entitic mass] 30.1 pg Normal 26.0-34.0 [facility] Comment on above: Order Comment: Speci men Type: BLOOD SPECIMENOrdering Facility: [facility] Address: [address] [place] [address] Performed By: #### 5 7021-8 ####[facility] LABIA [id number] [place] [address] [place] MCHC (RBC) [Mass/Vol] 32.4 g/dL Normal 30.5-36.0 [facility] Comment on above: Order Comment: Speci men Type: BLOOD SPECIMENOrdering Facility: [facility] Address: [address] [place] [address] Performed By: #### 5 7021-8 ####[facility] LABIA [id number] [place] [address] [place] MCV (RBC) [Entitic vol] 93.1 fL Normal 80.0-100.0 [facility] [place] Comment on above: Order Comment: Speci men Type: BLOOD SPECIMENOrdering Facility: [facility] Address: [address] [place] [address] Performed By: #### 5 7021-8 ####[facility] LABIA [id number] [place] [address] [place] Monocytes (Bld) [#/Vol] 0.90 10*3/uL High <0.87 [facility] Comment on above: Order Comment: Speci men Type: BLOOD SPECIMENOrdering Facility: [facility] Address: [address] [place] [address] Performed By: #### 5 7021-8 ####[facility] LABIA [id number] [address] [address] [place] Monocytes/100 WBC (Bld) 9.3 % Normal [facility] Comment on above: Order Comment: Speci men Type: BLOOD SPECIMENOrdering Facility: [facility] Address: [address] [place] [address] Performed By: #### 5 7021-8 ####[facility] LABCLIA [id number] [place] [address] [place] Neutrophils (Bld) [#/Vol] 6.75 10*3/uL Normal 1.45-7.50 [facility] Comment on above: Order Comment: Speci men Type: BLOOD SPECIMENOrdering Facility: [facility] Address: [address] [place] [address] Performed By: #### 5 7021-8 ####[facility] LABCLIA [id number] [place] [address] [place] Neutrophils/100 WBC (Bld) 69.6 % Normal [facility] Comment on above: Order Comment: Speci men Type: BLOOD SPECIMENOrdering Facility: [facility] Address: [address] [place] [address] Performed By: #### 5 7021-8 ####[facility] LABCLIA [id number] [place] [address] [place] Nucleated RBC (Bld) [#/Vol] 10*3/uL Normal <0.01 [facility] Comment on above: Order Comment: Speci men Type: BLOOD SPECIMENOrdering Facility: [facility] Address: [address] [place] [address] Performed By: #### 5 7021-8 ####[facility] LABCLIA [id number] [place] [id number] [place] Nucleated RBC/100 WBC (Bld) [Ratio] 0.0 /100 WBC Normal [facility] Comment on above: Order Comment: Speci men Type: BLOOD SPECIMENOrdering Facility: [facility] Address: [address] [place] [address] Performed By: #### 5 7021-8 ####[facility] LABIA [id number] [place] [address] [place] Platelet mean volume (Bld) [Entitic vol] 11.3 fL Normal 9.0-12.7 [facility] Comment on above: Order Comment: Speci men Type: BLOOD SPECIMENOrdering Facility: [facility] Address: [address] [place] [address] Performed By: #### 5 7021-8 ####[facility] LABIA [id number] [place] [address] [place] Platelets (Bld) [#/Vol] 226 10*3/uL Normal 150-400 [facility] Comment on above: Order Comment: Speci men Type: BLOOD SPECIMENOrdering Facility: [facility] Address: [address] [place] [address] Performed By: #### 5 7021-8 ####[facility] LABIA [id number] [place] [address] [place] RBC (Bld) [#/Vol] 3.75 10*6/uL Low 3.90-5.20 [facility] Comment on above: Order Comment: Speci men Type: BLOOD SPECIMENOrdering Facility: [facility] Address: [address] [place] [address] Performed By: #### 5 7021-8 ####[facility] LABIA [id number] [place] [id number] [place] WBC (Bld) [#/Vol] 9.71 10*3/uL Normal 3.70-11.00 [facility] Comment on above: Order Comment: Speci men Type: BLOOD SPECIMENOrdering Facility: [facility] Address: [address] [place] [address] Performed By: #### 5 7021-8 ####[facility] MELINDA [id number] SARAI LENNON [address] [place] CNOVon 01-11-2025 CNOV Office Visit (FAMPWS ) SAHARA MELÉNDEZ ([id number]) 1945 F NFR Date Time Provider Department 01/11/25 2:40 PM [facility] During your visit today, we recorded the [...] Pain at IV site Compazine [Prochlor* Intolerance [place] like she was coming out of her [...] TRANSORAL DIAGNOSTIC more content not included)... Normal [facility] Bilirubin directOrdered By: Antonio San on 11-09-2024 Bilirubin.direct [Mass/Vol] 0.25 mg/dL 0.00-0.30 [facility] Bilirubin, totalOrdered By: Antonio San on 11-09-2024 Bilirubin [Mass/Vol] 0.51 mg/dL 0.00-1.30 [facility] Calculated very low density lipoprotein (VLDL) cholesterol measurementOrdered By: Antonio San on 11-09-2024 Calculated very low density lipoprotein (VLDL) cholesterol measurement 14 mg/dL 5-40 [facility] VLDL Cholesterol 14 mg/dL -40 [facility] Gastroenterology Visit Repor ton 11-09-2024 Gastroenterology Visit Report [facility] [address] [place] [address] OFFICE VISIT Date of Service: 11/09/24 MR#: [id number] Acct: [id number] Name: SAHARA MELÉNDEZ Rep #: [id number] : 1945 Provider: Lawrence David DO Age/Sex: 78/F Location: [facility] Status: Signed Intake Vital Signs 01/25/24 10:44 07/26/24 10:47 Height 5 ft 3 in 5 ft 3 in Intake Visit Reasons: 6 M 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 Normal [facility] LDL calc ser/plasOrdered By: Antonio San on 11-09-2024 Cholesterol in LDL [Mass/Vol] 30 mg/dL [facility] Comment on above: Mdrthhriyc=907-383 m g/dL & Higher Uiup=206 mg/dL or greater LDL Cholesterol, Calculated 30 mg/dL [facility] Comment on above: Jwtuwgodrq=491-519 m g/dL & Higher Fmcu=681 mg/dL or greater Laboratory - Chemistry and C hemistry - challengeOrdered By: Antonio San on 11-09-2024 AST [Catalytic activity/Vol] 24 U/L <32 [facility] Lipid Profileon 11-09-2024 CHOL:HDL 1.58 Normal [facility] Comment on above: Performed By: #### L 500.3400, L500.4100 #### [facility] [address] [place], [address] Cholesterol [Mass/Vol] 121 mg/dL Normal <=200 [facility] Comment on above: Result Comment: Chol esterol level, Desirable <200 mg/dL Borderline high cholesterol 200-239 mg/dL High cholesterol >=240 mg/dL Recommendations of the NCEP Adult Treatment Panel for the following risk-cutoff thresholds for the [place] population. Performed By: #### L 500.3400, L500.4100 #### [facility] [address] [place], [address] Cholesterol in HDL [Mass/Vol] 77 mg/dL Normal [facility] Comment on above: Result Comment: Ethel onal Cholesterol Education Program (NCEP) guidelines: <40 mg/dL: Low HDL-cholesterol (major risk factor for CHD) >= 60 mg/dL: High HDL-cholesterol (negative risk factor for CHD) HDL-cholesterol is affected by a number of factors, e.g. smoking, exercise, hormones, sex and age. Performed By: #### L 500.3400, L500.4100 #### [facility] [address] [place], [address] Cholesterol in LDL [Mass/Vol] 30 mg/dL Normal [facility] Comment on above: Result Comment: Bord qhraoz=467-504 mg/dL Higher Exaf=533 mg/dL or greater Performed By: #### L 500.3400, L500.4100 #### [facility] [address] [place], [address] Cholesterol in VLDL [Mass/Vol] 14 mg/dL Normal 5-40 [facility] Comment on above: Performed By: #### L 500.3400, L500.4100 #### [facility] [address] [place], [address] Triglyceride [Mass/Vol] 72 mg/dL Normal [facility] Comment on above: Result Comment: The drugs N-Acetylcysteine and Metamizole may falsely depress this assay. Normal range: <150 mg/dL Borderline High: 150-199 mg/dL High: 200-499 mg/dL Very High: >500 mg/dL Performed By: #### L 500.3400, L500.4100 #### [facility] [address] [place], [address] Liver Profileon 11-09-2024 Albumin [Mass/Vol] 3.9 g/dL Normal 3.4-4.8 [facility] Comment on above: Performed By: #### L 500.3400, L500.4100 #### [facility] [address] [place], [address] ALK PHOS 74 U/L Normal 35-104 [facility] Comment on above: Performed By: #### L 500.3400, L500.4100 #### [facility] [address] [place], [address] ALT [Catalytic activity/Vol] 15 U/L Normal <=34 [facility] Comment on above: Performed By: #### L 500.3400, L500.4100 #### [facility] [address] [place], [address] AST [Catalytic activity/Vol] 24 U/L Normal <=31 [facility] Comment on above: Performed By: #### L 500.3400, L500.4100 #### [facility] [address] [place], [address] Bilirubin [Mass/Vol] 0.51 mg/dL Normal 0.00-1.30 [facility] Comment on above: Performed By: #### L 500.3400, L500.4100 #### [facility] [address] [place], [address] Bilirubin.direct [Mass/Vol] 0.25 mg/dL Normal 0.00-0.30 [facility] Comment on above: Performed By: #### L 500.3400, L500.4100 #### [facility] [address] [place], [address] Globulin (S) [Mass/Vol] 3.4 g/dL Normal 2.2-4.2 [facility] Comment on above: Performed By: #### L 500.3400, L500.4100 #### [facility] [address] [place], [address] T PROT 7.2 g/dL Normal 5.9-8.4 [facility] Comment on above: Performed By: #### L 500.1719, L500.4100 #### [facility] [place], [address] Screening total cholesterol/ high density lipoprotein (HDL) cholesterol ratioOrdered By: Antonio San on 11-09-2024 Cholesterol.total/Kristin sterol in HDL [Mass ratio] 1.58 {ratio} [facility] Serum globulin measurementOr dered By: Antonio San on 11-09-2024 Globulin (S) [Mass/Vol] 3.4 g/dL 2.2-4.[address] [facility] Serum or plasma alanine gonsalves otransferase (ALT) measurementOrdered By: Antonio San on 11-09-2024 ALT [Catalytic activity/Vol] 15 U/L <35 [facility] Serum or plasma albumin dahlia urement (mass/volume)Ordered By: Antonio San on 11-09-2024 Albumin [Mass/Vol] 3.9 g/dL 3.4-4.8 [facility] Serum or plasma alkaline abdullahi sphatase measurementOrdered By: Antonio San on 11-09-2024 ALP [Catalytic activity/Vol] 74 U/L 35-104 [facility] Serum or plasma cholesterol in HDL measurement (mass/volume)Ordered By: Antonio San on 11-09-2024 Cholesterol in HDL [Mass/Vol] 77 mg/dL >40 [facility] Comment on above: National Cholesterol Education Program (NCEP) guidelines:<40 mg/dL: Low HDL-cholesterol (major risk factor for CHD)>= 60 mg/dL: High HDL-cholesterol (negative risk factor for CHD)HDL-cholesterol is affected by a number of factors, e.g. smoking, exercise, hormones, sex and age. Serum or plasma cholesterol measurement (mass/volume)Ordered By: Antonio San on 11-09-2024 Cholesterol [Mass/Vol] 121 mg/dL <201 [facility] Comment on above: Cholesterol level, D esirable <200 mg/dLBorderline high cholesterol 200-239 mg/dLHigh cholesterol >=240 mg/dLRecommendations of the NCEP Adult Treatment Panel for the following risk-cutoff thresholds for the [place] population. Total proteinOrdered By: Yoel San on 11-09-2024 Protein [Mass/Vol] 7.2 g/dL 5.9-8.4 [facility] Triglycerides measurementOrd ered By: Antonio Mena on 11-09-2024 Triglyceride [Mass/Vol] 72 mg/dL <[address] [facility] Comment on above: The drugs N-Acetylcy steine and Metamizole may falsely depress this assay. Normal range: <150 mg/dLBorderline High: 150-199 mg/dLHigh: 200-499 mg/dLVery High: >500 mg/dL CNPShayla 10-31-2024 CNPN Telephone (HCAITC) SAHARA MELÉNDEZ ([id number]) 1945 F NFR Date Time Provider Department 10/31/24 [facility] During your visit today, we recorded the following information about you: ChildressCheriekristen 10/31/2024 4:30 PM Signed [facility] received an order for PAP therapy. Unfortunately, the patient resides out of service area and we are unable to provide. Please send the referral to an alternate provider. Thank you, [facility] [phone] fax Moon Nava APRN.RED 11/01/2024 7:32 AM Signed Please find out which company patients insurance prefers and send order to that company, Thank you Moon Nava APRN.Alise Zelaya LPN 11/01/2024 9:18 AM Signed Called and spoke to Sahara, stated I do not want this service [facility], does not want it. Alise Aceves LPN November 01, 2024 9:18 AM Allergies As of Date: 10/31/2024 Noted Allergy Reaction BENTYL (DICYCLOMINE HCL) 08/13/2013 1 - Mental Status Change CIPROFLOXACIN 05/24/2014 4 - Hives 14 - Other: See Comments Comments: IV Cipro only Pain at IV site COMPAZINE (PROCHLORPERAZINE EDISY*09/07/2005 5 - Intolerance Comments: [place] like she was coming out of her [...] [I83.90] Arth (more content not included)... Normal [facility] CNOVon 10-24-2024 CNOV Office Visit (VIKRAMIWR ) SAHARA MELÉNDEZ ([id number]) 1945 F NFR Date Time Provider Department 10/24/24 3:30 PM TAYLOR THOMPSON During your visit today, we recorded the following information about you: Pulse Blood pressure Weight Height 66/minute 98/62 95 kg 1.6 m Taylor Thompson MD 10/24/2024 5:29 PM Signed [facility] Initial Consult Sahara [...] location? collects them Social History: Primary language: Citizen Of [place] Marital Status: Living situation: Home Alone Socially engaged? (participates in activities such as clubs, synagogue, community center, sports, games, visiting friends/relatives, etc?): she goes to synagogue once in a while. Caregiver [place] and Stress Are your feeling overwhelmed? YES [...] WHEN P (more content not included)... Normal [facility] CBC W Auto Differential pane l (Bld)on 10-02-2024 Basophils (Bld) [#/Vol] 0.08 10*3/uL [facility] Basophils/100 WBC (Bld) 0.8 % C [facility] Differential cell count method Nom (Bld) Auto [facility] Eosinophils (Bld) [#/Vol] 0.31 10*3/uL [facility] Eosinophils/100 WBC (Bld) 3.2 % [facility] Erythrocyte distribution width (RBC) [Ratio] 14.6 % 11.5 - 15.0 % [facility] Hematocrit (Bld) [Volume fraction] 37.1 % 36.0 - 46.0 % [facility] Hemoglobin (d) [Mass/Vol] 11.5 g/dL 11.5 - 15.5 g/dL [facility] Immature granulocytes (Bld) [#/Vol] 0.05 10*3/uL [facility] Immature granulocytes/100 WBC (Bld) 0.5 % [facility] Interpretation and review of laboratory results Abnormal [facility] Lymphocytes (Bld) [#/Vol] 1.72 10*3/uL [facility] Lymphocytes/100 WBC (Bld) 17.9 % [facility] MCH (RBC) [Entitic mass] 29.2 pg 26.0 - 34.[address] [facility] MCHC (RBC) [Mass/Vol] 31.0 g/dL 30.5 - 36.0 g/dL [facility] MCV (RBC) [Entitic vol] 94.2 fL 80.0 - 100.[address] [facility] Monocytes (Bld) [#/Vol] 1.05 10*3/uL High [facility] Monocytes/100 WBC (Bld) 10.9 % [facility] Neutrophils (Bld) [#/Vol] 6.40 10*3/uL [facility] Neutrophils/100 WBC (Bld) 66.7 % [facility] Nucleated RBC (Bld) [#/Vol] [facility] Nucleated RBC/100 WBC (Bld) [Ratio] 0.0 % /[address] [facility] Platelet mean volume (Bld) [Entitic vol] 11.3 fL 9.0 - 12.[address] [facility] Platelets (Bld) [#/Vol] 241 10*3/uL [facility] RBC (Bld) [#/Vol] 3.94 10*6/uL 3.90 - 5.20 m/uL [facility] WBC (Bld) [#/Vol] 9.61 10*3/uL [facility] Basophils (Bld) [#/Vol] 0.08 10*3/uL Normal <0.11 [facility] Comment on above: Order Comment: Speci men Type: BLOOD SPECIMENOrdering Facility: [facility] Address: [address] [place] [address] Performed By: #### 5 7021-8 ####[facility] LABCLIA [id number] [address] [place] Basophils/100 WBC (Bld) 0.8 % Normal C [facility] Comment on above: Order Comment: Speci men Type: BLOOD SPECIMENOrdering Facility: [facility] Address: [address] [place] [address] Performed By: #### 5 7021-8 ####[facility] LABCLIA [id number] [place] [address] [place] Differential cell count method Nom (Bld) Auto Normal [facility] Comment on above: Order Comment: Speci men Type: BLOOD SPECIMENOrdering Facility: [facility] Address: [address] [place] [address] Performed By: #### 5 7021-8 ####[facility] LABCLIA [id number] [place] [address] [place] Eosinophils (Bld) [#/Vol] 0.31 10*3/uL Normal <0.46 [facility] Comment on above: Order Comment: Speci men Type: BLOOD SPECIMENOrdering Facility: [facility] Address: [address] [place] [address] Performed By: #### 5 7021-8 ####[facility] LABCLIA [id number] [place] [address] [place] Eosinophils/100 WBC (Bld) 3.2 % Normal [facility] Comment on above: Order Comment: Speci men Type: BLOOD SPECIMENOrdering Facility: [facility] Address: [address] [place] [address] Performed By: #### 5 7021-8 ####[facility] LABCLIA [id number] [place] [address] [place] Erythrocyte distribution width (RBC) [Ratio] 14.6 % Normal 11.5-15.0 [facility] Comment on above: Order Comment: Speci men Type: BLOOD SPECIMENOrdering Facility: [facility] Address: [address] [place] [address] Performed By: #### 5 7021-8 ####[facility] LABCLIA [id number] [place] [address] [place] Hematocrit (Bld) [Volume fraction] 37.1 % Normal 36.0-46.0 [facility] Comment on above: Order Comment: Speci men Type: BLOOD SPECIMENOrdering Facility: [facility] Address: [address] [place] [address] Performed By: #### 5 7021-8 ####[facility] LABIA [id number] [place] [address] [place] Hemoglobin (Bld) [Mass/Vol] 11.5 g/dL Normal 11.5-15.5 [facility] Comment on above: Order Comment: Speci men Type: BLOOD SPECIMENOrdering Facility: [facility] Address: [address] [place] [address] Performed By: #### 5 7021-8 ####[facility] LABIA [id number] [place] [address] [place] Immature granulocytes (Bld) [#/Vol] 0.05 10*3/uL Normal <0.10 [facility] Comment on above: Order Comment: Speci men Type: BLOOD SPECIMENOrdering Facility: [facility] Address: [address] [place] [address] Performed By: #### 5 7021-8 ####[facility] LABIA [id number] [place] [address] [place] Immature granulocytes/100 WBC (Bld) 0.5 % Normal [facility] Comment on above: Order Comment: Speci men Type: BLOOD SPECIMENOrdering Facility: [facility] Address: [address] [place] [address] Performed By: #### 5 7021-8 ####[facility] LABIA [id number] [place] [address] [place] Lymphocytes (Bld) [#/Vol] 1.72 10*3/uL Normal 1.00-4.00 [facility] Comment on above: Order Comment: Speci men Type: BLOOD SPECIMENOrdering Facility: [facility] Address: [address] [place] [address] Performed By: #### 5 7021-8 ####[facility] LABCLIA [id number] [place] [address] [place] Lymphocytes/100 WBC (Bld) 17.9 % Normal [facility] Comment on above: Order Comment: Speci men Type: BLOOD SPECIMENOrdering Facility: [facility] Address: [address] [place] [address] Performed By: #### 5 7021-8 ####[facility] LABIA [id number] [place] [address] [place] MCH (RBC) [Entitic mass] 29.2 pg Normal 26.0-34.0 [facility] Comment on above: Order Comment: Speci men Type: BLOOD SPECIMENOrdering Facility: [facility] Address: [address] [place] [address] Performed By: #### 5 7021-8 ####[facility] LABIA [id number] [place] [address] [place] MCHC (RBC) [Mass/Vol] 31.0 g/dL Normal 30.5-36.0 [facility] Comment on above: Order Comment: Speci men Type: BLOOD SPECIMENOrdering Facility: [facility] Address: [address] [place] [address] Performed By: #### 5 7021-8 ####[facility] LABIA [id number] [place] [address] [place] MCV (RBC) [Entitic vol] 94.2 fL Normal 80.0-100.0 [facility] [place] Comment on above: Order Comment: Speci men Type: BLOOD SPECIMENOrdering Facility: [facility] Address: [address] [place] [address] Performed By: #### 5 7021-8 ####[facility] LABCLIA [id number] [place] [address] [place] Monocytes (Bld) [#/Vol] 1.05 10*3/uL High <0.87 [facility] Comment on above: Order Comment: Speci men Type: BLOOD SPECIMENOrdering Facility: [facility] Address: [address] [place] [address] Performed By: #### 5 7021-8 ####[facility] LABCLIA [id number] [place] [address] [place] Monocytes/100 WBC (Bld) 10.9 % Normal [facility] [place] Comment on above: Order Comment: Speci men Type: BLOOD SPECIMENOrdering Facility: [facility] Address: [address] [place] [address] Performed By: #### 5 7021-8 ####[facility] LABCLIA [id number] [place] [address] [place] Neutrophils (Bld) [#/Vol] 6.40 10*3/uL Normal 1.45-7.50 [facility] Comment on above: Order Comment: Speci men Type: BLOOD SPECIMENOrdering Facility: [facility] Address: [address] [place] [address] Performed By: #### 5 7021-8 ####[facility] LABCLIA [id number] [place] [address] [place] Neutrophils/100 WBC (Bld) 66.7 % Normal [facility] Comment on above: Order Comment: Speci men Type: BLOOD SPECIMENOrdering Facility: [facility] Address: [address] [place] [address] Performed By: #### 5 7021-8 ####[facility] LABCLIA [id number] [id number] [address] [place] Nucleated RBC (Bld) [#/Vol] 10*3/uL Normal <0.01 [facility] Comment on above: Order Comment: Speci men Type: BLOOD SPECIMENOrdering Facility: [facility] Address: [address] [place] [address] Performed By: #### 5 7021-8 ####[facility] LABCLIA [id number] [place] [address] [place] Nucleated RBC/100 WBC (Bld) [Ratio] 0.0 /100 WBC Normal [facility] Comment on above: Order Comment: Speci men Type: BLOOD SPECIMENOrdering Facility: [facility] Address: [address] [place] [address] Performed By: #### 5 7021-8 ####[facility] LABCLIA [id number] [place] [address] [place] Platelet mean volume (Bld) [Entitic vol] 11.3 fL Normal 9.0-12.7 [facility] Comment on above: Order Comment: Speci men Type: BLOOD SPECIMENOrdering Facility: [facility] Address: [address] [place] [address] Performed By: #### 5 7021-8 ####[facility] LABIA [id number] [place] [address] [place] Platelets (Bld) [#/Vol] 241 10*3/uL Normal 150-400 [facility] Comment on above: Order Comment: Speci men Type: BLOOD SPECIMENOrdering Facility: [facility] Address: [address] [place] [address] Performed By: #### 5 7021-8 ####[facility] LABCLIA [id number] [place] [address] [place] RBC (Bld) [#/Vol] 3.94 10*6/uL Normal 3.90-5.20 [facility] Comment on above: Order Comment: Speci men Type: BLOOD SPECIMENOrdering Facility: [facility] Address: [address] [place], [place] [address] Performed By: #### 5 7021-8 ####[facility] LABCLIA [id number] [place] [id number] [place] WBC (Bld) [#/Vol] 9.61 10*3/uL Normal 3.70-11.00 [facility] Comment on above: Order Comment: Speci men Type: BLOOD SPECIMENOrdering Facility: [facility] Address: [address] [place] [address] Performed By: #### 5 7021-8 ####[facility] LABCLIA [id number] [place] [id number] [place] CNOVon 10-02-2024 CNOV Office Visit (FAMPWS ) SAHARA MELÉNDEZ ([id number]) 1945 F NFR Date Time Provider Department 10/02/24 11:20 AM [facility] During your visit today, we recorded the [...] the last 18 months. Still following with [facility]. No chest pain or shortness of breath. [...] Pain at IV site Compazine [Prochlor* Intolerance [place] like she was coming out of her [...] Traumatic b (more content not included)... Normal [facility] Comprehensive metabolic 2000 panelon 10-02-2024 Albumin [Mass/Vol] 4.1 g/dL Normal 3.9-4.9 [facility] Comment on above: Order Comment: Speci men Type: BLOOD SPECIMENOrdering Facility: [facility] Address: [address] [place] [address] [place] [id number] Performed By: #### 2 2113-8, 62122-3, 6-3 ####[facility] LABCLIA [id number] [facility] [place] [id number] [place] ALP [Catalytic activity/Vol] 70 U/L Normal 34-123 [facility] Comment on above: Order Comment: Speci men Type: BLOOD SPECIMENOrdering Facility: [facility] Address: [address] [place] [address] Performed By: #### 2 4323-8, 36651-5, 3015-3 ####[facility] LABCLIA [id number] [place] [address] [place] ALT [Catalytic activity/Vol] 16 U/L Normal 7-38 [facility] Comment on above: Order Comment: Speci men Type: BLOOD SPECIMENOrdering Facility: [facility] Address: [address] [place] [address] Performed By: #### 2 4323-8, 24430-0, 3015-3 ####[facility] LABCLIA [id number] [place] [address] [place] Anion gap [Moles/Vol] 10 mmol/L Normal 8-15 [facility] Comment on above: Order Comment: Speci men Type: BLOOD SPECIMENOrdering Facility: [facility] Address: [address] [place] [address] Performed By: #### 2 4323-8, 67753-2, 3015-3 ####[facility] LABCLIA [id number] [facility] [place] [id number] [place] AST [Catalytic activity/Vol] 20 U/L Normal 13-35 [facility] Comment on above: Order Comment: Speci men Type: BLOOD SPECIMENOrdering Facility: [facility] Address: [address] [place], [place] [address] Performed By: #### 2 4323-8, 06970-8, 6-3 ####[facility] LABCLIA [id number] [place] [id number] [place] Bilirubin [Mass/Vol] 0.3 mg/dL Normal 0.2-1.3 [facility] Comment on above: Order Comment: Speci men Type: BLOOD SPECIMENOrdering Facility: [facility] Address: [address] [place] [address] Performed By: #### 2 4323-8, 14341-4, 3016-3 ####[facility] LABCLIA [id number] [place] [id number] [place] Calcium [Mass/Vol] 9.8 mg/dL Normal 8.5-10.2 [facility] Comment on above: Order Comment: Speci men Type: BLOOD SPECIMENOrdering Facility: [facility] Address: [address] [place] [address] Performed By: #### 2 4323-8, 90253-7, 3015-3 ####[facility] LABCLIA [id number] [place] [address] [place] Chloride [Moles/Vol] 106 mmol/L Normal 98-107 [facility] Comment on above: Order Comment: Speci men Type: BLOOD SPECIMENOrdering Facility: [facility] Address: [address] [place] [address] Performed By: #### 2 4323-8, 74568-3, 6-3 ####[facility] LABCLIA [id number] [place] [id number] [place] CO2 [Moles/Vol] 27 mmol/L Normal 22-30 [facility] Comment on above: Order Comment: Speci men Type: BLOOD SPECIMENOrdering Facility: [facility] Address: [address] [place] [address] Performed By: #### 2 4323-8, 35136-3, 3016-3 ####[facility] LABCLIA [id number] [address] [address] [place] Creatinine [Mass/Vol] 0.65 mg/dL Normal 0.58-0.96 [facility] Comment on above: Order Comment: Santhosh mullins Type: BLOOD SPECIMENOrdering Facility: [facility] Address: [address] [place] [address] Performed By: #### 2 4323-8, 13610-8, 6-3 ####[facility] LABIA [id number] [address] OF [facility] Creatinine and Glomerular filtration rate.predicted panel (S/P/Bld) 91 mL/min/1.73m??? Normal >=60 [facility] Comment on above: Order Comment: Santhosh mullins Type: BLOOD SPECIMENOrdering Facility: [facility] Address: [address] [place] [address] Result Comment: Antoinette mated Glomerular Filtration Rate [...] actual GFR. Performed By: #### 2 4323-8, 55767-9, 3 ####[facility] LABCLIA [id number] [place] [address] [place] Glucose [Mass/Vol] 90 mg/dL Normal 74-99 [facility] Comment on above: Order Comment: Santhosh mullins Type: BLOOD SPECIMENOrdering Facility: [facility] Address: [address] [place] [address] Result Comment: The [place] Diabetes Association (ADA) provides guidance for cutoff [...] Standards of Medical Care in Diabetes 2016, [place] Diabetes Association. Diabetes Care. 2016.39(Suppl 1). Performed By: #### 2 4323-8, 93331-7, 3015-3 ####[facility] LABCLIA [id number] [address] [address] [place] Potassium [Moles/Vol] 4.5 mmol/L Normal 3.7-5.1 [facility] Comment on above: Order Comment: Speci men Type: BLOOD SPECIMENOrdering Facility: [facility] Address: [address] [place] [address] Performed By: #### 2 4323-8, 63422-6, 3 ####[facility] LABCLIA [id number] [place] [address] [place] Protein [Mass/Vol] 7.2 g/dL Normal 6.3-8.0 [facility] Comment on above: Order Comment: Speci men Type: BLOOD SPECIMENOrdering Facility: [facility] Address: [address] [place] [address] Performed By: #### 2 4323-8, 64935-7, 3 ####[facility] LABCLIA [id number] [place] [id number] [place] Sodium [Moles/Vol] 143 mmol/L Normal 136-144 [facility] Comment on above: Order Comment: Speci men Type: BLOOD SPECIMENOrdering Facility: [facility] Address: [address] [place] [id number] Performed By: #### 2 4323-8, 26733-8, 3 ####[facility] LABCLIA [id number] [address] [address] [place] Urea nitrogen [Mass/Vol] 18 mg/dL Normal 7-21 [facility] Comment on above: Order Comment: Santhosh men Type: BLOOD SPECIMENOrdering Facility: [facility] Address: [address] [place] [address] Performed By: #### 2 4323-8, 22216-9, 3016-3 ####[facility] LABCLIA [id number] [place] [address] [place] Folate SerPl-mCncon 10-02-19 25 Folate [Mass/Vol] 17.5 ng/mL Normal >4.[address] [facility] Comment on above: Order Comment: Santhosh men Type: BLOOD SPECIMENOrdering Facility: [facility] Address: [address] [place] [address] Performed By: #### 2 132-9, 2284-8 ####[facility] LABIA [id number] [place] [address] [place] HbA1c (Bld)on 10-02-2024 Average glucose Estimated from glycated hemoglobin (Bld) [Mass/Vol] 111 mg/dL Normal [facility] Comment on above: Order Comment: Santhosh mullins Type: BLOOD SPECIMENOrdering Facility: [facility] Address: [address] [place] [address] Result Comment: eAG: (Estimated average glucose) is a calculated value from HgbA1c and is public health representative of the average blood glucose level in the last 2-3 month period. Performed By: #### 5 5454-3 ####[facility] LABIA [id number] [place] [address] [place] HbA1c (Bld) [Mass fraction] 5.5 % Normal 4.3-5.6 [facility] Comment on above: Order Comment: Santhosh men Type: BLOOD SPECIMENOrdering Facility: [facility] Address: [address] [place] [address] Result Comment: Amer [place] Diabetes Association guidelines indicate that patients with HgbA1c in the range 5.7-6.4% are at increased risk for development of diabetes, and intervention by lifestyle modification may be beneficial. HgbA1c greater or equal to 6.5% is considered diagnostic of diabetes. Performed By: #### 5 5454-3 ####[facility] LABCLIA [id number] [place] [address] [place] Lipid 1996 panelon 5 Cholesterol [Mass/Vol] 118 mg/dL Normal <200 [facility] Comment on above: Order Comment: Speci men Type: BLOOD SPECIMENOrdering Facility: [facility] Address: [address] [place] [address] Result Comment: <200 mg/dL, Desirable 200-239 mg/dL, Borderline high >239 mg/dL, High Performed By: #### 2 4323-8, 52845-3, 3016-3 ####[facility] LABCLIA [id number] [address] OF [facility] Cholesterol in HDL [Mass/Vol] 69 mg/dL Normal >39 [facility] Comment on above: Order Comment: Patricai [facility] Type: BLOOD SPECIMENOrdering Facility: [facility] Address: [address] [place] [address] Result Comment: 40-5 9 mg/dL, Acceptable >59 mg/dL, High: Negative risk factor for coronary heart disease <40 mg/dL, Low: Positive risk factor for coronary heart disease Performed By: #### 2 4323-8, 85037-8, 3016-3 ####[facility] LABCLIA [id number] [address] STATES OF [facility] Cholesterol in LDL [Mass/Vol] 38 mg/dL Normal <100 [facility] Comment on above: Order Comment: Speci [facility] Type: BLOOD SPECIMENOrdering Facility: [facility] Address: [address] [place] [address] Result Comment: <100 mg/dL, Optimal 100-129 mg/dL, Near optimal/above optimal 130-159 mg/dL, Borderline high 160-189 mg/dL, High >189 mg/dL, Very high Secondary prevention optimal LDL Cholesterol levels are recommended to be < 70 mg/dL Performed By: #### 2 4323-8, 16626-5, 3016-3 ####[facility] LABCLIA [id number] [place] [address] [place] Cholesterol in LDL/Cholesterol in HDL [Mass ratio] 0.55 {ratio} Normal <2.54 [facility] Comment on above: Order Comment: Speci men Type: BLOOD SPECIMENOrdering Facility: [facility] Address: [address] [place] [address] Result Comment: Cherie dykes: 1. National Cholesterol Education Program ATP III Guideline At-A-Glance Quick Desk Reference: National Heart, Lung, and Blood Berry. National Institutes of Health. 2001: NIH Publication No. 01-3305. 2. An International Atherosclerosis Society position paper: global recommendations for the management of dyslipidemia: executive summary, Atherosclerosis. 2014: 232(2):410-413. Performed By: #### 2 4323-8, 26018-0, 6-3 ####[facility] LABCLIA [id number] [place] [address] [place] Cholesterol in VLDL [Mass/Vol] 11 mg/dL Normal <30 [facility] Comment on above: Order Comment: Speci men Type: BLOOD SPECIMENOrdering Facility: [facility] Address: [address] [place] [address] Performed By: #### 2 4323-8, 32653-2, 6-3 ####[facility] LABCLIA [id number] [place] [address] [place] Cholesterol non HDL [Mass/Vol] 49 mg/dL Normal <130 [facility] Comment on above: Order Comment: Speci men Type: BLOOD SPECIMENOrdering Facility: [facility] Address: [address] [place] [address] Result Comment: <130 mg/dL, Optimal 130-159 mg/dL, Near optimal/above optimal 160-189 mg/dL, Borderline high 190-219 mg/dL, High >219 mg/dL, Very high Secondary prevention optimal non HDL Cholesterol levels are recommended to be <100 mg/dL Performed By: #### 2 4323-8, 86616-2, 3016-3 ####[facility] LABCLIA [id number] [place] [address] [place] Cholesterol.total/Kristin sterol in HDL [Mass ratio] 1.71 {ratio} Normal <5.10 [facility] Comment on above: Order Comment: Speci men Type: BLOOD SPECIMENOrdering Facility: [facility] Address: [address] [place] [address] Performed By: #### 2 4323-8, 77128-0, 3016-3 ####[facility] LABIA [id number] [address] [place] FASTING TIME 12 hrs Normal [facility] Comment on above: Order Comment: Speci men Type: BLOOD SPECIMENOrdering Facility: [facility] Address: [address] [place] [address] Performed By: #### 2 4323-8, 92978-1, 3016-3 ####[facility] LABIA [id number] [place] [address] [place] Triglyceride [Mass/Vol] 56 mg/dL Normal <150 [facility] Comment on above: Order Comment: Speci men Type: BLOOD SPECIMENOrdering Facility: [facility] Address: [address] [place] [address] Result Comment: <150 mg/dL, Normal 150-199 mg/dL, Borderline high 200-499 mg/dL, High >499 mg/dL, Very high Performed By: #### 2 4323-8, 70179-9, 3016-3 ####[facility] LABIA [id number] [place] [address] [place] TSH SerPl-aCncon 10-02-2024 TSH Qn 2.750 m[IU]/L Normal 0.270-4.20 0 [facility] Comment on above: Order Comment: Speci men Type: BLOOD SPECIMENOrdering Facility: [facility] Address: [address] [place] [address] Performed By: #### 2 4323-8, 88315-4, 3016-3 ####[facility] LABCLIA [id number] [place] [address] [place] Vit B12 [facility] 025 Cobalamin (Vitamin B12) [Mass/Vol] 687 pg/mL Normal 232-1245 [facility] Comment on above: Order Comment: Speci men Type: BLOOD SPECIMENOrdering Facility: [facility] Address: [address] [place] [address] Performed By: #### 2 132-9, 2284-8 ####[facility] LABCLIA [id number] [place] [address] [place] Echo Completeon 08-20-2024 Echo Complete [facility] [address] [place] [address] Echo Complete 08/20/24 1257 MR#: [id number] Acct: [id number] Name: SAHARA MELÉNDEZ Rep #: [id number] : 1945 78 From: Cayetano Marie MD Attending Dr: Antonio San NP-C Status: REG CLI Ordering Dr: Antonio San NP [employer]-C Date: 08/20/24 Location: [facility] Sex: F C [...] Dictated: 08/20/24 1257 Date Transcribed: 08/20/24 1506 Pillowcase Maker: Signed Normal [facility] Absolute neutrophil countOrd ered By: Antonio San on 07-26-2024 Neutrophils (Bld) [#/Vol] 5.1 10*3/uL 2.0-7.7 [facility] BNP (brain natriuretic pepti de measurement)Ordered By: Antonio San on 07-26-2024 Natriuretic peptide B (Bld) [Mass/Vol] 122.1 pg/mL High 0-100 [facility] BNP,B-Type NATRIURETIC PEPTI Ju 07-26-2024 Natriuretic peptide B (Bld) [Mass/Vol] 122.1 pg/mL High 0-100 [facility] Comment on above: Performed By: #### L 503.6620, L100.0100, L500.2500 ####[facility] [address] [place], [address] Basic Metabolic Profile (BMP )on 07-26-2024 BUN/CRE 25.5 RATIO High 10-20 [facility] Comment on above: Performed By: #### L 503.6620, L100.0100, L500.2500 ####[facility] [address] [place], [address] CA,Total 9.4 mg/dL Normal 8.5-10.1 [facility] Comment on above: Performed By: #### L 503.6620, L100.0100, L500.2500 ####[facility] [address] [place], [address] Chloride [Moles/Vol] 108 mmol/L High 98-107 [facility] Comment on above: Performed By: #### L 503.6620, L100.0100, L500.2500 ####[facility] [address] [place], [address] CO2 [Moles/Vol] 28.0 mmol/L Normal 21.0-32.0 [facility] Comment on above: Performed By: #### L 503.6620, L100.0100, L500.2500 ####[facility] [address] [place], [address] Creatinine [Mass/Vol] 0.59 mg/dL Normal 0.55-1.02 [facility] Comment on above: Result Comment: The validity of the calculated GFR GFRAA in patients over 70 years has not been determined. Clinical correlation is essential. Performed By: #### L 503.6620, L100.0100, L500.2500 ####[facility] [address] [place], [address] EST GFR - AA 127 mL/min Normal >60 [facility] Comment on above: Result Comment: Afri can Malaysian GFR Calc Performed By: #### L 503.6620, L100.0100, L500.2500 ####[facility] [address] [place], [address] GAP 4 Low 5-15 [facility] Comment on above: Performed By: #### L 503.6620, L100.0100, L500.2500 ####[facility] [address] [place], [place], [address] GFR/1.73 sq M.predicted among non-blacks MDRD (S/P/Bld) [Vol rate/Area] 105 mL/min/{1.73_m2} Normal >60 [facility] Comment on above: Result Comment: Non- GFR Calc Performed By: #### L 503.6620, L100.0100, L500.2500 ####[facility] [address] [place], [address] Glucose [Mass/Vol] 99 mg/dL Normal 74-106 [facility] Comment on above: Performed By: #### L 503.6620, L100.0100, L500.2500 ####[facility] [address] [place], [address] Potassium [Moles/Vol] 3.8 mmol/L Normal 3.5-5.1 [facility] Comment on above: Performed By: #### L 503.6620, L100.0100, L500.2500 ####[facility] [address] [place], [address] Sodium [Moles/Vol] 140 mmol/L Normal 136-145 [facility] Comment on above: Performed By: #### L 503.6620, L100.0100, L500.2500 ####[facility] [address] [place], [address] Urea nitrogen [Mass/Vol] 15 mg/dL Normal 7-18 [facility] Comment on above: Performed By: #### L 503.6620, L100.0100, L500.2500 ####[facility] [address] [place], [address] Basophil percentageOrdered B y: Antonio San on 07-26-2024 Basophils/100 WBC (Bld) 0.9 % 0-[address] [facility] Blood urea nitrogen (BUN)/cr eatinine ratioOrdered By: Antonio San on 07-26-2024 Urea nitrogen/Creatinine [Mass ratio] 25.5 mg/mg High 10-20 [facility] CBC W/Diff, Automatedon 07-13 Absolute Lymph 1.86 X10 3/uL Normal 0.83-4.51 [facility] Comment on above: Performed By: #### L 503.6620, L100.0100, L500.2500 ####[facility] [address] [place], [address] Absolute Neut 5.1 X10 3/uL Normal 2.0-7.7 [facility] Comment on above: Performed By: #### L 503.6620, L100.0100, L500.2500 ####[facility] [address] [place], [address] Basophils/100 WBC (Bld) 0.9 % Normal 0-[address] [facility] Comment on above: Performed By: #### L 503.6620, L100.0100, L500.2500 ####[facility] [address] [place], [address] Eosinophils/100 WBC (Bld) 2.1 % Normal 0-5 [facility] Comment on above: Performed By: #### L 503.6620, L100.0100, L500.2500 ####[facility] [address] [place], [address] Erythrocyte distribution width (RBC) [Ratio] 13.5 % Normal 11.6-14.6 [facility] Comment on above: Performed By: #### L 503.6620, L100.0100, L500.2500 ####[facility] [address] [place], [address] Hematocrit (Bld) [Volume fraction] 38.8 % Normal 37-47 [facility] Comment on above: Performed By: #### L 503.6620, L100.0100, L500.2500 ####[facility] [address] [place], [address] Hemoglobin (Bld) [Mass/Vol] 12.2 g/dL Normal 12.0-15.0 [facility] Comment on above: Performed By: #### L 503.6620, L100.0100, L500.2500 ####[facility] [address] [place], [address] IG% 0.300 Normal 0.0-0.9 [facility] Comment on above: Result Comment: IG% - Immature Granulocytes (promyelocytes, myelocytes and metamyelocytes) > 1% indicates that a LEFT SHIFT is Present. Performed By: #### L 503.6620, L100.0100, L500.2500 ####[facility] [address] [place], [address] Lymphocytes/100 WBC (Bld) 23.5 % Normal 19-41 [facility] Comment on above: Performed By: #### L 503.6620, L100.0100, L500.2500 ####[facility] [address] [place], [address] MCH (RBC) [Entitic mass] 29.3 pg Normal 27.0-32.0 [facility] Comment on above: Performed By: #### L 503.6620, L100.0100, L500.2500 ####[facility] [address] [place], [address] MCHC (RBC) [Mass/Vol] 31.4 g/dL Low 32-36 [facility] Comment on above: Performed By: #### L 503.6620, L100.0100, L500.2500 ####[facility] [address] [place], [address] MCV (RBC) [Entitic vol] 93.0 fL Normal 81-99 [facility] Comment on above: Performed By: #### L 503.6620, L100.0100, L500.2500 ####[facility] [address] [place], [address] Monocytes/100 WBC (Bld) 8.6 % Normal 0-10 [facility] Comment on above: Performed By: #### L 503.6620, L100.0100, L500.2500 ####[facility] [address] [place], [address] Neutrophils/100 WBC (Bld) 64.6 % Normal 47-70 [facility] Comment on above: Performed By: #### L 503.6620, L100.0100, L500.2500 ####[facility] [address] [place], [address] Nucleated RBC (Bld) [#/Vol] 0 10*3/uL Normal 0-5 [facility] Comment on above: Performed By: #### L 503.6620, L100.0100, L500.2500 ####[facility] [address] [place], [address] Platelet mean volume (Bld) [Entitic vol] 10.5 fL Normal 6.2-12.0 [facility] Comment on above: Performed By: #### L 503.6620, L100.0100, L500.2500 ####[facility] [address] [place], [address] Platelets (Bld) [#/Vol] 263 10*3/uL Normal 150-450 [facility] Comment on above: Performed By: #### L 503.6620, L100.0100, L500.2500 ####[facility] [address] [place], [address] RBC (Bld) [#/Vol] 4.17 10*6/uL Low 4.2-5.4 [facility] Comment on above: Performed By: #### L 503.6620, L100.0100, L500.2500 ####[facility] [address] [place], [address] RDW SD 46.2 fl High 35.1-43.9 [facility] Comment on above: Performed By: #### L 503.6620, L100.0100, L500.2500 ####[facility] [address] [place], [address] WBC (Bld) [#/Vol] 7.9 10*3/uL Normal 4.4-11.0 [facility] Comment on above: Performed By: #### L 503.6620, L100.0100, L500.2500 ####[facility] [address] [place], [address] Carbon dioxide measurementOr dered By: Antonio San on 07-26-2024 CO2 [Moles/Vol] 28.0 mmol/L 21.0-32.0 [facility] Cardiology Visit Reporton Cardiology Visit Report [facility] 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 Normal [facility] Chloride measurementOrdered By: Antonio San on 07-26-2024 Chloride [Moles/Vol] 108 mmol/L High 98-107 [facility] Eosinophil percentageOrdered By: Antonio San on 07-26-2024 Eosinophils/100 WBC (Bld) 2.1 % 0-5 [facility] Erythrocyte distribution wid th ratioOrdered By: Antonio San on 07-26-2024 Erythrocyte distribution width (RBC) [Ratio] 13.5 % 11.6-14.6 [facility] Erythrocyte distribution wid th standard deviationOrdered By: Antonio San on 07-26-2024 Erythrocyte distribution width (RBC) [Entitic vol] 46.2 fL High 35.1-43.9 [facility] Estimated glomerular filtrat ion rate (GFR) AmericanOrdered By: Antonio San on 07-26-2024 Estimated GFR (MDRD) Amer 127 mL/min >60 [facility] Comment on above: GFR Calc Glomerular filtration rate ( GFR) estimationOrdered By: Antonio San on 07-26-2024 Estimated GFR (MDRD) Non-Af Amer 105 mL/min >60 [facility] Comment on above: Non- GFR Calc Glucose measurementOrdered B y: Antonio San on 07-26-2024 Glucose [Mass/Vol] 99 mg/dL 74-106 [facility] Hematocrit Auto (Bld) [Volum e fraction]Ordered By: Antonio San on 07-26-2024 Hematocrit (Bld) [Volume fraction] 38.8 % 37-47 [facility] Hemoglobin measurementOrdere d By: Antonio San on 07-26-2024 Hemoglobin (Bld) [Mass/Vol] 12.2 g/dL 12.0-15.0 [facility] Immature granulocytes/100 WB C Auto (Bld)Ordered By: Antonio San on 07-26-2024 Immature granulocytes/100 WBC (Bld) 0.300 % 0.0-0.9 [facility] Comment on above: IG% - Immature Granu locytes (promyelocytes, myelocytes and metamyelocytes) > 1% indicates that a LEFT SHIFT is Present. Lymphocytes Auto (Unsp spec) [#/Vol]Ordered By: nAtonio San on 07-26-2024 Lymphocytes (Bld) [#/Vol] 1.86 10*3/uL 0.83-4.51 [facility] Lymphocytes/100 WBC Auto (Un sp spec)Ordered By: Antonio San on 07-26-2024 Lymphocytes/100 WBC (Bld) 23.5 % 19-41 [facility] MCV (mean corpuscular volume ) determinationOrdered By: Antonio San on 07-26-2024 MCV (RBC) [Entitic vol] 93.0 fL 81-[address] [facility] Mean corpuscular hemoglobin (MCH) determinationOrdered By: Antonio San on 07-26-2024 MCH (RBC) [Entitic mass] 29.3 pg 27.0-32.0 [facility] Mean corpuscular hemoglobin concentration (MCHC) determinationOrdered By: Antonio San on 07-26-2024 MCHC (RBC) [Mass/Vol] 31.4 g/dL Low 32-36 [facility] Mean platelet volume determi nationOrdered By: Antonio San on 07-26-2024 Platelet mean volume (Bld) [Entitic vol] 10.5 fL 6.2-12.0 [facility] Monocyte percentageOrdered B y: Antonio San on 07-26-2024 Monocytes/100 WBC (Bld) 8.6 % 0-[address] [facility] Neutrophil percentageOrdered By: Antonio San on 07-26-2024 Neutrophils/100 WBC (Bld) 64.6 % 47-70 [facility] Nucleated red blood cell per centageOrdered By: Antonio San on 07-26-2024 Nucleated RBC/100 WBC (Bld) [Ratio] 0 % 0-5 [facility] Platelet countOrdered By: Barbara San on 07-26-2024 Platelets (Bld) [#/Vol] 263 10*3/uL 150-450 [facility] Potassium measurementOrdered By: Antonio San on 07-26-2024 Potassium [Moles/Vol] 3.8 mmol/L 3.5-5.1 [facility] RBC Auto (Bld) [#/Vol]Ordere d By: Antonio San on 07-26-2024 RBC (Bld) [#/Vol] 4.17 10*6/uL Low 4.2-5.4 [facility] Serum anion gap measurementO rdered By: Antonio San on 07-26-2024 Anion gap [Moles/Vol] 4 mmol/L Low 5-15 [facility] Serum or plasma calcium dahlia urement (mass/volume)Ordered By: Antonio San on 07-26-2024 Calcium [Mass/Vol] 9.4 mg/dL 8.5-10.1 [facility] Serum or plasma creatinine m easurement (mass/volume)Ordered By: Antonio San on 07-26-2024 Creatinine [Mass/Vol] 0.59 mg/dL 0.55-1.02 [facility] Comment on above: The validity of the calculated GFR & GFRAA in patients over 70 years has not been determined. Clinical correlation is essential. Serum or plasma urea nitroge n measurement (mass/volume)Ordered By: Antonio San on 07-26-2024 Urea nitrogen [Mass/Vol] 15 mg/dL 7-18 [facility] Sodium levelOrdered By: Antonio San on 07-26-2024 Sodium [Moles/Vol] 140 mmol/L 136-145 [facility] White blood cell (WBC) count Ordered By: Antonio San on 07-26-2024 WBC (Bld) [#/Vol] 7.9 10*3/uL 4.4-11.0 [facility] CNPNon 06-19-2024 CNPN Telephone (FAMWS) SAHARA MELÉNDEZ ([id number]) 1945 F NFR Date Time Provider Department [...] COMPAZINE (PROCHLORPERAZINE EDISY*09/07/2005 5 - Intolerance Comments: [place] like she was coming out of her [...] [K29.60] 09 (more content not included)... Normal [facility] Gastroenterology Visit Repor ton 05-10-2024 Gastroenterology Visit Report [facility] [address] [place] [address] OFFICE VISIT Date of Service: 05/10/24 MR#: [id number] Acct: [id number] Name: MEDHATSAHARA Addi Rep #: [id number] : 1945 Provider: Lawrence David DO Age/Sex: 78/F [place] [facility] Status: Signed Intake Vital Signs 11/18/23 09:18 [...] (Updated 01/25/24 @ 11:26 by Antonio San [employer], SALES [employer]IVE [employer]-C) Wears glasses High cholesterol TIA (transient ischemic [...] and tea HPI (more content not included)... [facility] 05-04-2024 [facility] Telephone ([facility]) SAHARA MELÉNDEZ ([id number]) 1945 F NFR Date Time Provider Department 05/04/24 ROSENDO BROWN [facility] During your visit today, we recorded the following information about you: Shayna Lacey LPN 05/04/2024 11:39 AM Signed Mammogram from [facility]: Scan on 05/04/2024 11:20 AM by Provider, MAURICE Thomas: Mammography Allergies As of Date: 05/04/2024 Noted Allergy Reaction BENTYL (DICYCLOMINE HCL) 08/13/2013 1 - Mental Status Change CIPROFLOXACIN 05/24/2014 4 - Hives 14 - Other: See Comments Comments: IV Cipro only Pain at IV site COMPAZINE (PROCHLORPERAZINE EDISY*09/07/2005 5 - Intolerance Comments: [place] like she was coming out of her [...] pain [G89.18] (more content not included)... Normal [facility] SCRN MAMM (CAD)W/ADITYA BILATo n 05-04-2024 SCRN MAMM (CAD)W/ADITYA BILAT [facility] Imaging Services [address] [place] [id number] SCRN MAMM (CAD)W/ADITYA BILAT MR#: [id number] Acct: [id number] Name: SAHARA MELÉNDEZ Rep #: [id number] : 1945 F 78 From: Miguel campos MD PCP: Dr. Rosendo Brown MD Status: REG [facility] Study: SCRN MAMM (CAD)W/ADITYA BILAT Date of Exam: 04/13 12/03 Exam# [id number] Ordering Dr: Rosendo Brown MD [id number] MAMMOGRAPHY - BILATERAL SCREENING REASON FOR EXAM: [...] delay biopsy of a clinically suspicious abnormality. [id number] Electronically Signed: Miguel Hightower MD at 11:10 EDT , CC: Dr. Rosendo Brown MD Pillowcase Maker: Signed Normal [facility] 04-30-2024 [facility] Telephone (FAMPWS) SAHARA MELÉNDEZ ([id number]) 1945 F NFR Date Time Provider Department 04/30/24 ROSENDO BROWN During your visit today, we recorded the following information about you: Tona Pagan LPN 04/30/2024 9:23 AM Signed Pt is calling to request an order for mammogram screening. Pt requests order be faxed to [facility]. Pt reports she has an appt to have mammogram done on 05/04/24. FANNY Cain Christy, APRN.RED 04/30/2024 11:22 AM Signed Order placed. Fax as requested. Mary Alejandro APRN.Shayna Yeh LPN 04/30/2024 11:25 AM Signed Mammo order sent to [facility]. Allergies As of Date: 04/30/2024 Noted Allergy Reaction BENTYL (DICYCLOMINE HCL) 08/13/2013 1 - Mental Status Change CIPROFLOXACIN 05/24/2014 4 - Hives 14 - Other: See Comments Comments: IV Cipro only Pain at IV site COMPAZINE (PROCHLORPERAZINE EDISY*09/07/2005 5 - Intolerance Comments: [place] like she was coming out of her skin DILAUDID (HYDROMORPHONE (BULK)) 09/07/2005 5 - Intolerance E-MYCIN (ERYTHROMYCIN) 09/07/2005 8 - GI Upset LATEX 07/26/2007 2 - Rash Date Reviewed: 04/04/2024 Reviewed by: Mya Corbin MA - Fully Assessed Reason for Visit: mammogram order [Other] Primary Visit Diagnosis:Visit for screening mammogram [Z12.31] Order(s):[facility] SCREENING W ADITYA [9286960] Order #: [id number] FUTURE Prescriptions as of 04/30/2024 - ursodiol [...] for screening (more content not included)... [facility])on 04-12 Cholesterol [Mass/Vol] 111 mg/dL [facility] Cholesterol in HDL [Mass/Vol] 65 mg/dL [facility] Cholesterol in LDL [Mass/Vol] 29 mg/dL [facility] LDL:HDL Ratio [facility] Non-HDL Cholesterol [facility] TC:HDL Ratio [facility] Triglyceride [Mass/Vol] 83 mg/dL [facility] VLDL [facility]olesterol [facility] Lipid Profileon 04-26-2024 Cholesterol [Mass/Vol] 111 mg/dL Normal 200 [facility] Comment on above: Result Comment: <200 mg/dL Desirable 200-240 mg/dL Borderline >240 mg/dL High Risk Performed By: #### L 500.3400, L500.4100 #### [facility] [address] [place], [address] Cholesterol in HDL [Mass/Vol] 65 mg/dL Normal [facility] Comment on above: Result Comment: The drugs N-Acetylcysteine and Metamizole may falsely depress this assay. Reference Range HDL <40 mg/dL Low HDL Cholesterol HDL >or= 60 mg/dL High HDL Cholesterol Performed By: #### L 500.3400, L500.4100 #### [facility] [address] [place], [address] Cholesterol in LDL [Mass/Vol] 29 mg/dL Normal 0-130 [facility] Comment on above: Performed By: #### L 500.3400, L500.4100 #### [facility] [address] [place], [address] Cholesterol in VLDL [Mass/Vol] 17 mg/dL Normal 5-40 [facility] Comment on above: Performed By: #### L 500.3400, L500.4100 #### [facility] [address] [place], [address] Triglyceride [Mass/Vol] 83 mg/dL Normal [facility] Comment on above: Result Comment: The drugs N-Acetylcysteine and Metamizole may falsely depress this assay. Serum Triglycerides Reference Interval Normal <150 mg/dL Borderline high 150 - 199 mg/dL High 200 - 499 mg/dL Very High > or = 500 mg/dL Performed By: #### L 500.3400, L500.4100 #### [facility] [address] [place], [address] Liver Profileon 04-26-2024 Albumin [Mass/Vol] 2.9 g/dL Low 3.2-5.0 [facility] Comment on above: Performed By: #### L 500.3400, L500.4100 #### [facility] [address] [place], [address] ALK P 65 U/L Normal 45-117 [facility] Comment on above: Performed By: #### L 500.3400, L500.4100 #### [facility] [address] [place], [address] ALT [Catalytic activity/Vol] 16 U/L Normal 13-56 [facility] Comment on above: Performed By: #### L 500.3400, L500.4100 #### [facility] [address] [place], [address] AST [Catalytic activity/Vol] 15 U/L Normal 15-37 [facility] Comment on above: Performed By: #### L 500.3400, L500.4100 #### [facility] [address] [place], [address] Bilirubin [Mass/Vol] 0.50 mg/dL Normal 0.20-1.00 [facility] Comment on above: Result Comment: For patients on eltrombopag therapy, use of Dimension [place] TBIL is not recommended. Performed By: #### L 500.3400, L500.4100 #### [facility] [address] [place], [address] Bilirubin.direct [Mass/Vol] 0.16 mg/dL Normal 0.00-0.30 [facility] Comment on above: Performed By: #### L 500.3400, L500.4100 #### [facility] [address] [place], [address] Globulin (S) [Mass/Vol] 4.2 g/dL Normal 2.2-4.[address] [facility] Comment on above: Performed By: #### L 500.3400, L500.4100 #### [facility] [address] [place], [address] T PROT 7.1 g/dL Normal 6.4-8.2 [facility] Comment on above: Performed By: #### L 500.3400, L500.4100 #### [facility] [address] [place], [address] CNOVon 04-04-2024 OV Office Visit (FAMPWS ) SAHARA MELÉNDEZ ([id number]) 1945 F NFR Date Time Provider Department [...] Pain at IV site Compazine [Prochlor* Intolerance [place] like she was coming out of her [...] TUBE OVARY (more content not included)... Normal [facility]ftali [facility]-04[facility]2024 [facility] SAHARA MELÉNDEZ ([id number]) 1945 F NFR Date Time Provider Department 04/04/24 ROSENDO BROWNWS During your visit today, we recorded the following information about you: Brunilda Gambino RN 04/04/2024 10:34 AM Signed Rai [facility], reports they received Rx for [...] want the budesonide anyway. Please advise Rai: [phone] Rosendo Brown MD 04/04/2024 11:13 AM Signed [...] COMPAZINE (PROCHLORPERAZINE EDISY*09/07/2005 5 - Intolerance Comments: [place] like she was coming out of her skin DILAUDID (HYDROMORPHONE (BULK)) 09/07/2005 5 - Intolerance E-MYCIN (ERYTHROMYCIN) 09/07/2005 8 - GI Upset LATEX 07/26/2007 2 - Rash Date Reviewed: 04/04/2024 Reviewed by: Mya Corbin MA - Fully Assessed Reason for Visit: Medication Question [0598] Prescriptions as of 04/04/2024 - ursodiol (ACTIGALL) [...] bowel syndrome) (more content not included)... Normal [facility] COVID AND INFLUENZA A/B AND RSV NAAT, ROUTINEon 04-04-2024 SARS-CoV-2 (COVID-19) RNA RADHA+probe Ql (Unsp spec) COVID 19 RESULT: Not detected The method used is RT-PCR or an equivalent NAAT method. Reference Range (the expected result in uninfected individuals): Not detected INFLUENZA A PCR: Not detected INFLUENZA B PCR: Not detected RSV PCR: Not detected Normal [facility] Comment on above: Performed By: #### C VFLRS ####[facility] LAB[facility] [id number] [place] [id number] [place] XR CHEST 2V [...] shows degenerative changes. IMPRESSION: Overall findings unchanged. Pillowcase Maker: CARLI Transcribe Date/Time: Apr 04 2024 12:12P Dictated by : JL FARRAR MD This examination was interpreted and the report reviewed and electronically signed by: JL FARRAR MD on Apr 04 2024 12:14PM EST [id number] Normal [facility] XR Chest PA and Lateralon IMPRESSION: Overall findings unchanged. Pillowcase Maker: CARLI Transcribe Date/Time: Apr 04 2024 12:12P [...] shows degenerative changes. DIVISION OF RADIOLOGY Provider, [facility] - 04/04/2024 * * *Final Report* * [...] degenerative changes. IMPRESSION IMPRESSION: Overall findings unchanged. Pillowcase Maker: PSCB Transcribe Date/Time: Apr 04 2024 12:12P Dictated by : JL FARRAR MD This examination was interpreted and the report reviewed and electronically signed by: JL FARRAR MD on Apr 04 2024 12:14PM EST [facility] Radiology Study observation (narrative) Gordon Clancy XR Chest PA and LateralOrder ed By: [facility]cf Provider on 04-04-2024 [facility] Basophil percentageOrdered B y: Lawrence Friend on 12-02-2023 Basophil percentage < 10.0 IU/mL <15 [facility] No Panel InformationOrdered By: Lawrence David on 12-02-2023 Endomysial IgA Antibody Negative Negative [facility] Hepatitis A IgM Antibody Negative Negative [facility] Hepatitis B Core IgM Antibody Negative Negative [facility] Hepatitis C Antibody (EIA) Non-Reactive Non Reactive [facility] Hepatitis C Antibody Comment Comment . [facility] Comment on above: Not infected with HC V unless early or acute infection issuspected (which may be delayed in an immunocompromisedindividual), or other evidence exists to indicate HCVinfection. Immunoglobulin G4 57 mg/dL 2-96 [facility] Serum IgG subclass 1 measure ment (mass/volume)Ordered By: Lawrence David on 12-02-2023 IgG subclass 1 (S) [Mass/Vol] 898 mg/dL 248-810 [facility] Serum IgG subclass 2 measure ment (mass/volume)Ordered By: Lawrence David on 12-02-2023 IgG subclass 2 (S) [Mass/Vol] 411 mg/dL 130-555 [facility] Serum IgG subclass 3 measure ment (mass/volume)Ordered By: Lawrence David on 12-02-2023 IgG subclass 3 (S) [Mass/Vol] 88 mg/dL 15-102 [facility] Serum mitochondria antibody detectionOrdered By: Lawrence David on 12-02-2023 Mitochondria Ab Ql (S) 95.4 Units 0.0-20.0 [facility] Comment on above: Negative 0.0 - 20.0 Equivocal 20.1 - 24.9 Positive >24.9Mitochondrial (M2) Antibodies are found in 90-96% ofpatients with primary biliary cirrhosis.Performed at: [address] [id number] Director: Addison Maradiaga PhD, Phone: [phone] Serum or plasma IgA measurem ent (mass/volume)Ordered By: Lawrence David on 12-02-2023 IgA [Mass/Vol] 347 mg/dL 64-422 [facility] Serum or plasma IgG measurem ent (mass/volume)Ordered By: Lawrence David on 12-02-2023 IgG [Mass/Vol] 1407 mg/dL 586-1602 [facility] Serum or plasma actin IgG an tibody assay (units/volume)Ordered By: Lawrence David on 12-02-2023 Actin IgG Qn 9 Units 0-19 [facility] Comment on above: Negative 0 - 19 Weak positive 20 - 30 Moderate to strong positive >30 Actin Antibodies are found in 52-85% of patients with autoimmune hepatitis or chronic active hepatitis and in 22% of patients with primary biliary cirrhosis.Performed at: [employer] [id number] Director: Addison Maradiaga PhD, Phone: [phone] Serum or plasma hepatitis B virus surface antigen detection by immunoassayOrdered By: Lawrence David on 12-02-2023 HBV surface Ag IA Ql Negative Negative [facility] Serum tissue transglutaminas e IgA antibody assay (units/volume)Ordered By: Lawrence David on 12-02-2023 tTG IgA Qn (S) 3 U/mL 0-3 [facility] Comment on above: Negative 0 - 3 Weak Positive 4 - 10 Positive >10 Tissue Transglutaminase (tTG) has been identified as the endomysial antigen. Studies have demonstr- ated that endomysial IgA antibodies have over 99% specificity for gluten sensitive enteropathy. Absolute lymphocyte countOrd ered By: Lawrence David on 11-18-2023 Lymphocytes Auto (Unsp spec) [#/Vol] 1.46 10*3/uL 0.83-4.51 [facility] Albumin Elph [Mass/Vol]Order ed By: Lawrence David on 11-18-2023 Albumin [Mass/Vol] 3.6 g/dL 2.9-4.4 [facility] Atypical perinuclear antineu trophil cytoplasmic antibodies measurementOrdered By: Lawrence David on 11-18-2023 Neutrophil cytoplasmic Ab.perinuclear.atypical IF (S) [Titer] Negative Negative [facility] Automated lymphocyte count a s percentage of total leukocytesOrdered By: Lawrence David on 11-18-2023 Lymphocytes/100 WBC Auto (Unsp spec) 19.2 % 19-41 [facility] Basophil percentageOrdered B y: Lawrence David on 11-18-2023 Amylase [Catalytic activity/Vol] 18 U/L 25-115 [facility] Basophils/100 WBC (Bld) 0.8 % 0-[address] [facility] Eosinophils/100 WBC (Bld) 3.1 % 0-5 [facility] Hemoglobin (Bld) [Mass/Vol] 12.2 g/dL 12.0-15.0 [facility] LDH [Catalytic activity/Vol] 203 U/L 84-246 [facility] Monocytes/100 WBC (Bld) 8.5 % 0-[address] [facility] Neutrophils (Bld) [#/Vol] 5.2 10*3/uL 2.0-7.7 [facility] Neutrophils/100 WBC (Bld) 68.1 % 47-70 [facility] WBC (Bld) [#/Vol] 7.6 10*3/uL 4.4-11.0 [facility] Chitobioside IgA antibody as sayOrdered By: Lawrence David on 11-18-2023 Chitobioside IgA IA Qn 67 units 0-90 [facility] Comment on above: Negative: <80 Equivo lisette: 80-90 Positive: >90 Chocolate IgE serumOrdered B y: Lawrence David on 11-18-2023 Chocolate IgE Qn (S) <0.10 kU/L Class 0 [facility] Determination of erythrocyte mean corpuscular volume (MCV)Ordered By: Lawrence David on 11-18-2023 MCV (RBC) [Entitic vol] 93.3 fL 81-[address] [facility] Erythrocyte distribution wid th ratioOrdered By: Lawrence David on 11-18-2023 Erythrocyte distribution width (RBC) [Ratio] 13.6 % 11.6-14.6 [facility] Erythrocyte distribution wid th standard deviationOrdered By: Lawrence David on 11-18-2023 Erythrocyte distribution width (RBC) [Entitic vol] 46.4 fL 35.1-43.9 [facility] Erythrocyte sedimentation ra teOrdered By: Lawrence David on 11-18-2023 ESR (Bld) [Velocity] 15 mm/h 0-30 [facility] Hematocrit Auto (Bld) [Volum e fraction]Ordered By: Lawrence David on 11-18-2023 Hematocrit (Bld) [Volume fraction] 39.0 % 37-47 [facility] Immature granulocytes/100 WB C Auto (Bld)Ordered By: Lawrence David on 11-18-2023 Immature granulocytes/100 WBC (Bld) 0.300 % 0.0-0.9 [facility] Comment on above: IG% - Immature Granu locytes (promyelocytes, myelocytes and metamyelocytes) > 1% indicates that a LEFT SHIFT is Present. Interpretation of serum or p lasma protein pattern by immunofixation (narrative resultOrdered By: Lawrence David on 11-18-2023 Protein Fractions Immunofixation Dheeraj [Interp] Not Observed g/dL Not Observed [facility] Laboratory - Chemistry and C hemistry - challengeOrdered By: Lawrence David on 11-18-2023 Cobalamin (Vitamin B12) [Mass/Vol] 499 pg/mL 211-911 [facility] Lipase [Catalytic activity/Vol] 20 U/L 13-75 [facility] Comment on above: Please note:LIPASE r evised reference range effective 22. New Lipase methodology. Expected to produce lower values than the previous assay method. NEW Reference Range: 13 - 75 U/L Laboratory - Hematology and Cell countsOrdered By: Lawrence David on 11-18-2023 MCH (RBC) [Entitic mass] 29.2 pg 27.0-32.0 [facility] MCHC (RBC) [Mass/Vol] 31.3 g/dL 32-36 [facility] Nucleated RBC/100 WBC (Bld) [Ratio] 0 % 0-5 [facility] Platelet mean volume (Bld) [Entitic vol] 11.1 fL 6.2-12.0 [facility] Platelets (Bld) [#/Vol] 262 10*3/uL 150-450 [facility] Laboratory - Miscellaneous t estsOrdered By: Lawrence David on 11-18-2023 Laboratory comment Dheeraj (Report) Comment . [facility] Comment on above: Pattern is not sugge stive of Inflammatory Bowel Disease Service comment (Unsp spec) [Interp] Comment . [facility] Comment on above: Levels of Specific [...] Laminaribioside IgG IA Qn 8 units 0-60 [facility] Comment on above: Negative:<55 Equivoc al: 55-60 Positive: >60.Previous reported result: 8 unitsEdited by: HOOD on 12/07/23:1443 AMENDED REPORT 12/07/23 1443 ALCA previously reported as: 8 units Negative:<55 Equivocal: 55-60 Positive: >60 No Panel InformationOrdered By: Lawrence David on 11-18-2023 Addendum Document Comment . [facility] Comment on above: Protein electrophore sis scan will follow via computer,mail, or arborer delivery. C-Reactive Protein Extended Range 4.77 mg/L 0.0-3.0 [facility] Comment on above: C-Reactive Protein ( CRP) provides useful information for thediagnosis, therapy and monitoring of inflammatory processesand associated diseases. For the evaluation of Relative Riskfor Cardiovascular Disease, a High Sensitivity CRP (HSCRP)should be ordered. Endomysial IgA Antibody Negative Negative [facility] Folate 18.20 ng/mL 3.1-55.4 [facility] Free Triiodothyronine (T3) pg/dL 2.5 pg/mL 2.18-3.98 [facility] Immunoglobulin G4 61 mg/dL 2-96 [facility] Immunoglobulin M 41 mg/dL 26-217 [facility] Mussel Allergen IgE Antibody <0.10 kU/L Class 0 [facility] Saccharomyces cerevisiae (Jayro)IgG 26 units 0-50 [facility] Comment on above: Negative: <45 Equivo lisette: 45-50 Positive: >50 Shrimp Allergen <0.10 kU/L Class 0 [facility] RBC Auto (Bld) [#/Vol]Ordere d By: Lawrence David on 11-18-2023 RBC (Bld) [#/Vol] 4.18 10*6/uL 4.2-5.4 [facility] Serum IgG subclass 1 measure ment (mass/volume)Ordered By: Lawrence David on 11-18-2023 IgG subclass 1 (S) [Mass/Vol] 932 mg/dL 248-810 [facility] Serum IgG subclass 2 measure ment (mass/volume)Ordered By: Lawrence David on 11-18-2023 IgG subclass 2 (S) [Mass/Vol] 389 mg/dL 130-555 [facility] Serum IgG subclass 3 measure ment (mass/volume)Ordered By: Lawrence David on 11-18-2023 IgG subclass 3 (S) [Mass/Vol] 86 mg/dL 15-102 [facility] Serum [id number] measu rement by electrophoresisOrdered By: Lawrence David on 11-18-2023 Alpha 1 globulin Elph [Mass/Vol] 0.3 g/dL 0.0-0.4 [facility] Alpha 1 globulin Elph [Mass/Vol] 0.8 g/dL 0.4-1.0 [facility] Serum beef IgE antibody assa y (units/volume)Ordered By: Lawrence David on 11-18-2023 Beef IgE Qn (S) <0.10 kU/L Class 0 [facility] Serum codfish IgE antibody a ssay (units/volume)Ordered By: Lawrence David on 11-18-2023 Codfish IgE Qn (S) <0.10 kU/L Class 0 [facility] Serum corn IgE antibody assa y (units/volume)Ordered By: Lawrence David on 11-18-2023 [place] IgE Qn (S) <0.10 kU/L Class 0 [facility] Serum cow milk IgE antibody assay (units/volume)Ordered By: Lawrence David on 11-18-2023 Cow milk IgE Qn (S) <0.10 kU/L Class 0 [facility] Serum globulin measurement ( mass/volume)Ordered By: Lawrence David on 03-08-2024 Globulin (S) [Mass/Vol] 3.5 g/dL 2.2-3.[address] [facility] Serum or plasma IgA measurem ent (mass/volume)Ordered By: Lawrence David on 11-18-2023 IgA [Mass/Vol] 353 mg/dL 64-422 [facility] Serum or plasma IgG measurem ent (mass/volume)Ordered By: Lawrence David on 11-18-2023 IgG [Mass/Vol] 1482 mg/dL 586-1602 [facility] IgG [Mass/Vol] Not Reportable [facility] Serum or plasma beta globuli n measurement by electrophoresis (mass/volume)Ordered By: Lawrence David on 11-18-2023 Beta globulin Elph [Mass/Vol] 1.1 g/dL 0.7-1.3 [facility] Serum or plasma gamma globul in measurement by electrophoresis (mass/volume)Ordered By: Lawrence David on 11-18-2023 Gamma globulin Elph [Mass/Vol] 1.3 g/dL 0.4-1.8 [facility] Serum or plasma gastrin dahlia urement (mass/volume)Ordered By: Lawrence David on 11-18-2023 Gastrin [Mass/Vol] 66 pg/mL 0-115 [facility] Comment on above: Siemens Immulite 200 0 Immunochemiluminometric assay (ICMA)Values obtained with different assay methods or kits cannotbe used interchangeably. Results cannot be interpreted asabsolute evidence of the presence or absence of malignantdisease.Performed at: [employer] [id number] Director: Addison Maradiaga PhD, Phone: [phone] at: [facility] [id number] Director: Jarvis Jones MD, Phone: [phone] Serum or plasma immunoelectr ophoresis interpretation (nominal result)Ordered By: Lawrence David on 11-18-2023 Interpretation IEP [Interp] Comment: . [facility] Comment on above: Presence of monoclon al protein is unclear at this time. Suggestrepeat in 3 to 6 months if clinically indicated. Serum or plasma mannobioside IgG antibody assay by immunoassay (units/volume)Ordered By: Lawrence David on 11-18-2023 Mannobioside IgG IA Qn 23 units 0-100 [facility] Comment on above: Negative: <90 Equivo lisette: 90-100 Positive: >100 This test was developed and its performance characteristics determined by [employer]. It has not been cleared or approved by the Food and Drug Administration. The FDA has determined that such clearance or approval is not necessary. Serum or plasma thyroid stim ulating hormone (TSH) measurement (units/volume)Ordered By: Lawrence David on 11-18-2023 TSH Qn 1.91 uIU/mL 0.358-3.74 [facility] Serum peanut IgE antibody as say (units/volume)Ordered By: Lawrence David on 11-18-2023 Peanut IgE Qn (S) <0.10 kU/L Class 0 [facility] Serum pork IgE antibody assa y (units/volume)Ordered By: Lawrence David on 11-18-2023 Pork IgE Qn (S) <0.10 kU/L Class 0 [facility] Serum salmon IgE antibody as say (units/volume)Ordered By: Lawrencelorin David on 11-18-2023 [place] IgE Qn (S) <0.10 kU/L Class 0 [facility] Serum soybean IgE antibody a ssay (units/volume)Ordered By: Lawrence David on 11-18-2023 Soybean IgE Qn (S) <0.10 kU/L Class 0 [facility] Serum tissue transglutaminas e IgA antibody assay (units/volume)Ordered By: Lawrence David on 11-18-2023 tTG IgA Qn (S) 2 U/mL 0-3 [facility] Comment on above: Negative 0 - 3 Weak Positive 4 - 10 Positive >10 Tissue Transglutaminase (tTG) has been identified as the endomysial antigen. Studies have demonstr- ated that endomysial IgA antibodies have over 99% specificity for gluten sensitive enteropathy. Serum tuna IgE antibody assa y (units/volume)Ordered By: Lawrence David on 11-18-2023 Tuna IgE Qn (S) <0.10 kU/L Class 0 [facility] Serum wheat IgE antibody ass ay (units/volume)Ordered By: Lawrence David on 11-18-2023 Wheat IgE Qn (S) <0.10 kU/L Class 0 [facility] Serum whole egg IgE antibody assay (units/volume)Ordered By: Lawrence David on 11-18-2023 Whole Egg IgE Qn (S) <0.10 kU/L Class 0 [facility] Comment on above: Performed at: [address] [id number] Director: Jarvis Jonse MD, Phone: [phone] Thin prep Papanicolaou smear with manual screeningOrdered By: Lawrence David on 11-18-2023 Thin prep Papanicolaou smear with manual screening 0.89 ng/dL 0.76-1.46 [facility] Thin prep Papanicolaou smear with manual screening 1.1 0.7-1.7 [facility] Total protein bloodOrdered B y: Lawrence David on 11-18-2023 Protein [Mass/Vol] 7.1 g/dL 6.0-8.5 [facility] XR Shoulder - right 3 Viewso n 10-10-2023 IMPRESSION: No acute osseous abnormalities are identified Pillowcase Maker: [email or web address] Transcribe Date/Time: Oct 10 2023 5:53P Dictated by : DHARA NEVAREZ MD This examination was interpreted and the report reviewed and electronically signed by: DHARA NEVAREZ MD on Oct 10 2023 5:54PM [facility] RADIOLOG[facility] * * *Final Report* [...] IMPRESSION: No acute osseous abnormalities are identified Pillowcase Maker: [email or web address] Transcribe Date/Time: Oct 10 2023 5:53P Dictated by : DHARA NEVAREZ MD This examination was interpreted and the report reviewed and electronically signed by: DHARA NEVAREZ MD on Oct 10 2023 5:54PM EST [facility] Radiology [facility]narrative[facility] Should[facility] - right 3 ViewsO rdered By: [facility] Provider on 10-10-2023 [facility] Neftali 03-30-2023 CNPN Telephone (NESLBA) SAHARA MELÉNDEZ ([id number]) 1945 F NFR Date Time Provider Department [...] COMPAZINE (PROCHLORPERAZINE EDISY*09/07/2005 5 - Intolerance Comments: [place] like she was coming out of her [...] 4 hours as needed. FOR PAIN. - [id number] 149-hyal(GLUCOSAMINE CHONDROITIN COMPLEX ADVANCED [id number]-1.65MG TAB) one tablet daily - MULTIVITAMIN TAB [...] mitral (valve) (more content not included)... Normal [facility] UA DIP, URINE (POC)on 2022 BILIRUBIN UA (POCT) Negative Negative [facility] CLARITY UA (POCT) Clear [facility] COLOR UA (POCT) [place] [facility] GLUCOSE UA (POCT) 100 mg/dL Abnormal Negative mg/dL [facility] HEMOGLOBIN/BLOOD UA (POCT) Moderate Abnormal Negative [facility] KETONE UA (POCT) Negative Negative mg/dL [facility] LEUKOCYTES UA (POCT) Trace Abnormal Negative [facility] NITRITE UA (POCT) Positive Abnormal Negative [facility] PH UA (POCT) 5.0 4.5 - 8.0 [facility] Protein Ql (U) Negative Negative mg/dL [facility] SPECIFIC GRAVITY UA (POCT) <=1.005 Abnormal 1.005 - 1.030 [facility] UROBILINOGEN UA (POCT) 1.0 E.U./dL Su l E.U./dL [facility] UA DIP, URINE (POC)on 2022 BILIRUBIN UA (POCT) Negative Negative [facility] CLARITY UA (POCT) Cloudy [facility] COLOR UA (POCT) [place] [facility] GLUCOSE UA (POCT) Negative Negative mg/dL [facility] HEMOGLOBIN/BLOOD UA (POCT) Moderate Abnormal Negative [facility] KETONE UA (POCT) Negative Negative mg/dL [facility] LEUKOCYTES UA (POCT) Small Abnormal Negative [facility] NITRITE UA (POCT) Positive Abnormal Negative [facility] PH UA (POCT) 5.0 4.5 - 8.0 [facility] Protein Ql (U) Negative Negative mg/dL [facility] SPECIFIC GRAVITY UA (POCT) 1.025 1.005 - 1.030 [facility] UROBILINOGEN UA (POCT) 0.2 E.U./dL Su l E.U./dL [facility] Culture, urineOrdered By: Dr Cj Louise on 01-22-2023 Bacteria identified Cx Nom (U) [facility] Absolute lymphocyte countOrd ered By: Dr. Louise on 01-21-2023 Lymphocytes Auto (Unsp spec) [#/Vol] 1.58 10*3/uL 0.83-4.51 [facility] Basophil percentageOrdered B y: Dr. Louise on 01-21-2023 Basophil percentage 3.3 mg/dL 2.5-4.9 [facility] Basophils/100 WBC (Bld) 1.1 % 0-1 [facility] Bilirubin [Mass/Vol] 0.60 mg/dL 0.20-1.00 [facility] Comment on above: For patients on eltr ombopag therapy, use of Dimension [place] TBIL is not recommended. Chloride [Moles/Vol] 109 mmol/L 98-107 [facility] Cholesterol [Mass/Vol] 187 mg/dL <200 [facility] Comment on above: <200 mg/dL Desirable 200-240 mg/dL Borderline >240 mg/dL High Risk Eosinophils/100 WBC (Bld) 4.5 % 0-5 [facility] Glucose [Mass/Vol] 109 mg/dL 74-106 [facility] Comment on above: Fasting Glucose resu lt from 100 to 125 mg/dL suggests IMPAIRED HOMEOSTASIS per A.D.A. criteria. Neutrophils (Bld) [#/Vol] 3.8 10*3/uL 2.0-7.7 [facility] Neutrophils/100 WBC (Bld) 58.7 % 47-70 [facility] Potassium [Moles/Vol] 4.2 mmol/L 3.5-5.1 [facility] Protein [Mass/Vol] 7.5 g/dL 6.4-8.2 [facility] Sodium [Moles/Vol] 140 mmol/L 136-145 [facility] Triglyceride [Mass/Vol] 92 mg/dL <[address] [facility] Comment on above: The drugs N-Acetylcy steine and Metamizole may falsely depress this assay.Serum Triglycerides Reference Interval Normal <150 mg/dL Borderline high 150 - 199 mg/dL High 200 - 499 mg/dL Very High > or = 500 mg/dL WBC (Bld) [#/Vol] 6.4 10*3/uL 4.4-11.0 [facility] Blood erythrocytes count (nu mber/volume)Ordered By: Dr. Louise on 01-21-2023 RBC (Bld) [#/Vol] 4.33 10*6/uL 4.2-5.4 [facility] Blood hemoglobin measurement (mass/volume)Ordered By: Dr. Louise on 01-21-2023 Hemoglobin (Bld) [Mass/Vol] 12.7 g/dL 12.0-15.0 [facility] Blood lymphocytes/100 leukoc ytesOrdered By: Dr. Louise on 01-21-2023 Lymphocytes/100 WBC (Bld) 24.7 % 19-41 [facility] Blood monocytes/100 leukocyt esOrdered By: Dr. Louise on 01-21-2023 Monocytes/100 WBC (Bld) 10.8 % 0-10 [facility] Blood platelet mean volumeOr dered By: Dr. Louise on 01-21-2023 Platelet mean volume (Bld) [Entitic vol] 10.4 fL 6.2-12.0 [facility] Determination of erythrocyte mean corpuscular volume (MCV)Ordered By: Dr. Louise on 01-21-2023 MCV (RBC) [Entitic vol] 91.9 fL 81-99 [facility] Hematocrit Auto (Bld) [Volum e fraction]Ordered By: Dr. Louise on 01-21-2023 Hematocrit (Bld) [Volume fraction] 39.8 % 37-47 [facility] Laboratory - Chemistry and C hemistry - challengeOrdered By: Dr. Louise on 01-21-2023 ALP [Catalytic activity/Vol] 69 U/L 45-117 [facility] ALT [Catalytic activity/Vol] 20 U/L 13-56 [facility] CO2 [Moles/Vol] 25.0 mmol/L 21.0-32.0 [facility] Globulin (S) [Mass/Vol] 4.1 g/dL 2.2-4.2 [facility] Magnesium [Mass/Vol] 2.5 mg/dL 1.6-2.6 [facility] Urea nitrogen/Creatinine [Mass ratio] 19.0 mg/mg 10-20 [facility] Laboratory - Hematology and Cell countsOrdered By: Dr. Louise on 01-21-2023 Erythrocyte distribution width (RBC) [Entitic vol] 45.5 fL 35.1-43.9 [facility] Erythrocyte distribution width (RBC) [Ratio] 13.4 % 11.6-14.6 [facility] Immature granulocytes/100 WBC (Bld) 0.200 % 0.0-0.9 [facility] Comment on above: IG% - Immature Granu locytes (promyelocytes, myelocytes and metamyelocytes) > 1% indicates that a LEFT SHIFT is Present. MCH (RBC) [Entitic mass] 29.3 pg 27.0-32.0 [facility] Nucleated RBC/100 WBC (Bld) [Ratio] 0 % 0-5 [facility] MCHC Auto (RBC) [Mass/Vol]Or dered By: Dr. Louise on 01-21-2023 MCHC (RBC) [Mass/Vol] 31.9 g/dL 32-36 [facility] No Panel InformationOrdered By: Dr. Louise on 01-21-2023 Estimated Creatinine Clearance Calc 39.59 ml/min [facility] Estimated GFR (MDRD) Amer 98 mL/min >60 [facility] Comment on above: GFR Calc Estimated GFR (MDRD) Non-Af Amer 81 mL/min >60 [facility] Comment on above: Non- GFR Calc Thyroid Stimulating Hormone (TSH) 3.43 uIU/mL 0.358-3.74 [facility] Platelets bldOrdered By: Dr. Louise on 01-21-2023 Platelets (Bld) [#/Vol] 270 10*3/uL 150-450 [facility] Serum or plasma albumin dahlia urement (mass/volume)Ordered By: Dr. Louise on 01-21-2023 Albumin [Mass/Vol] 3.4 g/dL 3.2-5.0 [facility] Serum or plasma albumin/glob ulin mass ratioOrdered By: Dr. Louise on 01-21-2023 Albumin/Globulin [Mass ratio] 0.8 {ratio} 0.9-2.4 [facility] Serum or plasma calcium dahlia urement (mass/volume)Ordered By: Dr. Louise on 01-21-2023 Calcium [Mass/Vol] 9.4 mg/dL 8.5-10.1 [facility] Serum or plasma cholesterol in HDL measurement (mass/volume)Ordered By: Dr. Louise on 01-21-2023 Cholesterol in HDL [Mass/Vol] 69 mg/dL >40 [facility] Comment on above: The drugs N-Acetylcy steine and Metamizole may falsely depress this assay. Reference Range HDL <40 mg/dL Low HDL Cholesterol HDL >or= 60 mg/dL High HDL Cholesterol Serum or plasma cholesterol in VLDL measurement (mass/volume)Ordered By: Dr. Louise on 01-21-2023 Cholesterol in VLDL [Mass/Vol] 18 mg/dL 5-40 [facility] Serum or plasma creatinine m easurement (mass/volume)Ordered By: Dr. Louise on 01-21-2023 Creatinine [Mass/Vol] 0.74 mg/dL 0.55-1.02 [facility] Comment on above: The validity of the calculated GFR & GFRAA in patients over 70 years has not been determined. Clinical correlation is essential. Serum or plasma low density lipoprotein (LDL) cholesterol measurement (mass/volume)Ordered By: Dr. Louise on 01-21-2023 Cholesterol in LDL [Mass/Vol] 100 mg/dL 0-130 [facility] Serum or plasma urea nitroge n measurement (mass/volume)Ordered By: Dr. Louise on 01-21-2023 Urea nitrogen [Mass/Vol] 14 mg/dL 7-18 [facility] Thin prep Papanicolaou smear with manual screeningOrdered By: Dr. Louise on 01-21-2023 Thin prep Papanicolaou smear with manual screening 19 U/L 15-37 [facility] Thin prep Papanicolaou smear with manual screening 6 5-15 [facility] Whole blood hemoglobin A1c/t otal hemoglobin ratio (mass fraction)Ordered By: Dr. Louise on 01-21-2023 HbA1c (Bld) [Mass fraction] 5.3 % 3.8-5.6 [facility] Comment on above: Normal < 5.7 % Predi abetic 5.7 - 6.4 % Diabetic >or= 6.5 % Please note range changes. Absolute lymphocyte countOrd ered By: Kiera Barrios on 01-20-2023 Lymphocytes Auto (Unsp spec) [#/Vol] 1.28 10*3/uL 0.83-4.51 [facility] Basophil percentageOrdered B y: Kiera Barrios on 01-20-2023 Basophil percentage 0-5 SEEN /hpf 0-5 [facility] Basophils/100 WBC (Bld) 1.0 % 0-[address] [facility] Bilirubin [Mass/Vol] 0.60 mg/dL 0.20-1.00 [facility] Comment on above: For patients on eltr ombopag therapy, use of Dimension [place] TBIL is not recommended. Chloride [Moles/Vol] 107 mmol/L 98-107 [facility] Eosinophils/100 WBC (Bld) 4.3 % 0-5 [facility] Glucose [Mass/Vol] 101 mg/dL 74-106 [facility] Comment on above: Fasting Glucose resu lt from 100 to 125 mg/dL suggests IMPAIRED HOMEOSTASIS per A.D.A. criteria. Neutrophils (Bld) [#/Vol] 3.8 10*3/uL 2.0-7.7 [facility] Neutrophils/100 WBC (Bld) 63.0 % 47-70 [facility] Potassium [Moles/Vol] 3.9 mmol/L 3.5-5.1 [facility] Protein [Mass/Vol] 7.1 g/dL 6.4-8.2 [facility] Sodium [Moles/Vol] 141 mmol/L 136-145 [facility] WBC (Bld) [#/Vol] 6.1 10*3/uL 4.4-11.0 [facility] Bilirubin Test strip Ql (U)O rdered By: Kiera Barrios on 01-20-2023 Bilirubin Ql (U) 3 mg/dL Negative [facility] Comment on above: COLOR OF URINE MAY A FFECT DIPSTICK RESULTS. Blood erythrocytes count (nu mber/volume)Ordered By: Kiera Barrios on 01-20-2023 RBC (Bld) [#/Vol] 3.96 10*6/uL 4.2-5.4 [facility] Blood hemoglobin measurement (mass/volume)Ordered By: Kiera Barrios on 01-20-2023 Hemoglobin (Bld) [Mass/Vol] 11.9 g/dL 12.0-15.0 [facility] Blood lymphocytes/100 leukoc ytesOrdered By: Kiera Barrios on 01-20-2023 Lymphocytes/100 WBC (Bld) 21.2 % 19-41 [facility] Blood monocytes/100 leukocyt esOrdered By: Kiera Barrios on 01-20-2023 Monocytes/100 WBC (Bld) 10.2 % 0-[address] [facility] Blood platelet mean volumeOr dered By: Kiera Barrios on 01-20-2023 Platelet mean volume (Bld) [Entitic vol] 10.3 fL 6.2-12.0 [facility] Culture, urineOrdered By: Erick Louise on 01-20-2023 Bacteria identified Cx Nom (U) [facility] Determination of erythrocyte mean corpuscular volume (MCV)Ordered By: Kiera Barrios on 01-20-2023 MCV (RBC) [Entitic vol] 92.2 fL 81-[address] [facility] Direct bilirubinOrdered By: Kiera Barrios on 01-20-2023 Bilirubin.direct [Mass/Vol] 0.18 mg/dL 0.00-0.30 [facility] Hematocrit Auto (Bld) [Volum e fraction]Ordered By: Kiera Barrios on 01-20-2023 Hematocrit (Bld) [Volume fraction] 36.5 % 37-47 [facility] INR in Blood by Coagulation assayOrdered By: Kiera Barrios on 01-20-2023 INR Coag (Bld) [Relative time] 1.0 {INR} [facility] Ketones Test strip Ql (U)Ord ered By: Kiera Barrios on 01-20-2023 Ketones Ql (U) Negative Negative [facility] Laboratory - Chemistry and C hemistry - challengeOrdered By: Kiera Barrios on 01-20-2023 ALP [Catalytic activity/Vol] 63 U/L 45-117 [facility] ALT [Catalytic activity/Vol] 17 U/L 13-56 [facility] CO2 [Moles/Vol] 28.0 mmol/L 21.0-32.0 [facility] Globulin (S) [Mass/Vol] 3.9 g/dL 2.2-4.[address] [facility] Urea nitrogen/Creatinine [Mass ratio] 20.8 mg/mg 10-20 [facility] Laboratory - CoagulationOrde red By: Kiera Barrios on 01-20-2023 aPTT Coag (Bld) [Time] 25.9 s 24.1-36.2 [facility] PT Coag (PPP) [Time] 13.6 s 11.7-14.9 [facility] Laboratory - Hematology and Cell countsOrdered By: Kiera Barrios on 01-20-2023 Erythrocyte distribution width (RBC) [Entitic vol] 46.4 fL 35.1-43.9 [facility] Erythrocyte distribution width (RBC) [Ratio] 13.6 % 11.6-14.6 [facility] Immature granulocytes/100 WBC (Bld) 0.300 % 0.0-0.9 [facility] Comment on above: IG% - Immature Granu locytes (promyelocytes, myelocytes and metamyelocytes) > 1% indicates that a LEFT SHIFT is Present. MCH (RBC) [Entitic mass] 30.1 pg 27.0-32.0 [facility] Nucleated RBC/100 WBC (Bld) [Ratio] 0 % 0-5 [facility] MCHC Auto (RBC) [Mass/Vol]Or dered By: Kiera Barrios on 01-20-2023 MCHC (RBC) [Mass/Vol] 32.6 g/dL 32-36 [facility] Mucus LM Ql (Urine sed)Order ed By: Kiera Barrios on 01-20-2023 Mucus Ql (Urine sed) 0 SEEN /hpf [facility] Nitrite Test strip Ql (U)Ord ered By: Kiera Barrios on 01-20-2023 Nitrite Ql (U) Positive Negative [facility] No Panel InformationOrdered By: Kiera Barrios on 01-20-2023 Estimated Creatinine Clearance Calc 39.59 ml/min [facility] Estimated GFR (MDRD) Amer 101 mL/min >60 [facility] Comment on above: GFR Calc Estimated GFR (MDRD) Non-Af Amer 84 mL/min >60 [facility] Comment on above: Non- GFR Calc Platelets bldOrdered By: López Barrios on 01-20-2023 Platelets (Bld) [#/Vol] 228 10*3/uL 150-450 [facility] Protein Test strip Ql (U)Ord ered By: Kiera Barrios on 01-20-2023 Protein Ql (U) 15 mg/dl Negative [facility] Serum or plasma albumin dahlia urement (mass/volume)Ordered By: Kiera Barrios on 01-20-2023 Albumin [Mass/Vol] 3.2 g/dL 3.2-5.0 [facility] Serum or plasma calcium dahlia urement (mass/volume)Ordered By: Kiera Barrios on 01-20-2023 Calcium [Mass/Vol] 9.1 mg/dL 8.5-10.1 [facility] Serum or plasma creatinine m easurement (mass/volume)Ordered By: Kiera Barrios on 01-20-2023 Creatinine [Mass/Vol] 0.72 mg/dL 0.55-1.02 [facility] Comment on above: The validity of the calculated GFR & GFRAA in patients over 70 years has not been determined. Clinical correlation is essential. Serum or plasma urea nitroge n measurement (mass/volume)Ordered By: Kiera Barrios on 01-20-2023 Urea nitrogen [Mass/Vol] 15 mg/dL 7-18 [facility] Squamous epithelial cells de tection in urine sediment by light microscopyOrdered By: Kiera Barrios on 01-20-2023 Epithelial cells.squamous LM Ql (Urine sed) 0-5 SEEN /hpf 5-10 [facility] Thin prep Papanicolaou smear with manual screeningOrdered By: Kiera Barrios on 01-20-2023 Thin prep Papanicolaou smear with manual screening 20 U/L 15-37 [facility] Thin prep Papanicolaou smear with manual screening 6 5-15 [facility] Urine blood detectionOrdered By: Kiera Barrios on 01-20-2023 RBC Ql (U) Negative Negative [facility] RBC Ql (U) 0 SEEN /hpf 0-5 [facility] Urine clarityOrdered By: López Barrios on 01-20-2023 Clarity (U) Sl. Cloudy Clear [facility] Urine color determinationOrd ered By: Kiera Barrios on 01-20-2023 Color (U) Yellow Yellow [facility] Urine glucose detectionOrder ed By: Kiera Barrios on 01-20-2023 Glucose Ql (U) Normal mg/dl Normal [facility] Urine leukocyte esterase det ection by dipstickOrdered By: Kiera Barrios on 01-20-2023 Leukocyte esterase Test strip Ql (U) 100 /ul Negative [facility] Urine pHOrdered By: Carole Barrios on 01-20-2023 pH (U) 7.0 [pH] 5.0 - 8.0 [facility] Urine sediment bacteria coun t by microscopy (number/high power field)Ordered By: Kiera Barrios on 01-20-2023 Bacteria LM.HPF (Urine sed) [#/Area] RARE /hpf None Seen [facility] Urine specific gravity measu rementOrdered By: Kiera Barrios on 01-20-2023 Specific gravity (U) [Rel density] 1.005 1.002-1.03 0 [facility] Urobilinogen Auto test strip Ql (U)Ordered By: Kiera Barrios on 01-20-2023 Urobilinogen Ql (U) 4 mg/dl Normal [facility] UA DIP, URINE (POC)on 2022 BILIRUBIN UA (POCT) Negative Negative [facility] CLARITY UA (POCT) Slightly Cloudy Cl [facility] COLOR UA (POCT) Dark yellow [facility] GLUCOSE UA (POCT) Negative Negative mg/dL [facility] HEMOGLOBIN/BLOOD UA (POCT) Large Abnormal Negative [facility] KETONE UA (POCT) Negative Negative mg/dL [facility] LEUKOCYTES UA (POCT) Small Abnormal Negative [facility] NITRITE UA (POCT) Positive Abnormal Negative [facility] PH UA (POCT) 5.0 4.5 - 8.0 [facility] Protein Ql (U) 100 mg/dL Abnormal Negative mg/dL [facility] SPECIFIC GRAVITY UA (POCT) 1.025 1.005 - 1.030 [facility] UROBILINOGEN UA (POCT) 0.2 E.U./dL Su l E.U./dL [facility] UA DIP, URINE (POC)on 2022 BILIRUBIN UA (POCT) Negative Negative [facility] CLARITY UA (POCT) Clear [facility] COLOR UA (POCT) [place] [facility] GLUCOSE UA (POCT) Negative Negative mg/dL [facility] HEMOGLOBIN/BLOOD UA (POCT) Negative Negative [facility] KETONE UA (POCT) Negative Negative mg/dL [facility] LEUKOCYTES UA (POCT) Small Abnormal Negative [facility] NITRITE UA (POCT) Negative Negative [facility] PH UA (POCT) 5.5 4.5 - 8.0 [facility] Protein Ql (U) Negative Negative mg/dL [facility] SPECIFIC GRAVITY UA (POCT) >=1.030 1.005 - 1.030 [facility] UROBILINOGEN UA (POCT) 0.2 E.U./dL Su l E.U./dL [facility] UA DIP, URINE (POC)on 2022 BILIRUBIN UA (POCT) Negative Negative [facility] CLARITY UA (POCT) [facility] COLOR UA (POCT) Dark yellow [facility] GLUCOSE UA (POCT) Negative Negative mg/dL [facility] HEMOGLOBIN/BLOOD UA (POCT) Moderate Abnormal Negative [facility] KETONE UA (POCT) Negative Negative mg/dL [facility] LEUKOCYTES UA (POCT) Small Abnormal Negative [facility] NITRITE UA (POCT) Positive Abnormal Negative [facility] PH UA (POCT) 7.0 4.5 - 8.0 [facility] Protein Ql (U) Trace Abnormal Negative mg/dL [facility] SPECIFIC GRAVITY UA (POCT) 1.020 1.005 - 1.030 [facility] UROBILINOGEN UA (POCT) 0.2 E.U./dL Su l E.U./dL [facility] DXA-AXIAL SKELETONon 022 [facility] XR Foot - left AP and Latera l and obliqueon 04-28-2022 IMPRESSION: Acute fifth proximal phalanx fracture. Pillowcase Maker: CARLI Transcribe Date/Time: Apr 28 2022 10:50A Dictated by : ANDREI ADAMS MD This examination was interpreted and the report reviewed and electronically signed by: ANDREI ADAMS MD on Apr 28 2022 10:51AM [facility] DIVISION OF RADIOLOGY * * *Final Report* [...] osseous injury identified. DIVISION OF RADIOLOGY Provider, [facility] - 04/28/2022 * * *Final Report* * [...] IMPRESSION IMPRESSION: Acute fifth proximal phalanx fracture. Pillowcase Maker: [facility] Transcribe Date/Time: Apr 28 2022 10:50A Dictated by : ANDREI ADAMS MD This examination was interpreted and the report reviewed and electronically signed by: ANDREI ADAMS MD on Apr 28 2022 10:51AM EST [facility] XR Foot - left AP and Latera l and obliqueOrdered By: [facility] Provider on 04-28-2022 [facility] XR Foot - left AP and Latera l and obliqueon 04-27-2022 Radiology Study observation (narrative) [facility] US DVT LOWER LTon 02-10-2022 [facility] Atypical perinuclear antineu trophil cytoplasmic antibodies measurementon 12-02-2021 Neutrophil cytoplasmic Ab.perinuclear.atypical IF (S) [Titer] <1:20 titer Neg:<1:20 [facility] Work Phone: Comment on above: The atypical pANCA p attern has been observed in asignificant percentage of patients with ulcerative colitis,primary sclerosing cholangitis and autoimmune hepatitis. Basophil percentageon 2021 Basophil percentage 0.2 AI 0.0-0.9 [facility] Work Phone: Basophil percentage < 0.2 AI 0.0-0.9 [facility] Work Phone: Chocolate RASTon 12-02-2021 Chocolate IgE Qn (S) <0.10 kU/L Class 0 [facility] Work Phone: Comment on above: Performed at: [address] [id number] Director: Addison Maradiaga PhD, Phone: [phone] at: [facility] [id number] Director: Jarvis Jones MD, Phone: [phone] Erythrocyte sedimentation ra jeromy 12-02-2021 ESR (Bld) [Velocity] 25 mm/h 0-30 [facility] Work Phone: Laboratory - Miscellaneous t estson 12-02-2021 Service comment (Unsp spec) [Interp] Comment . [facility] Work Phone: Comment on above: Levels [...] 12-02 Centromere B Antibody <0.2 AI 0.0-0.9 [facility] Work Phone: Endomysial IgA Antibody Negative Negative [facility] Work Phone: Immunoglobulin E 26 IU/mL 6-495 [facility] Work Phone: APPRENTICE COOK Antibody 0.3 AI 0.0-0.9 [facility] Work Phone: [employer] Allergens (RAST) Negative . [facility] Work Phone: Comment on above: Allergens in this mi x are: Blue mussel Fish [place] Shrimp Tuna Serum DNA double strand anti body assay (units/volume)on 12-02-2021 DNA double strand Ab Qn (S) 1 [IU]/mL 0-9 [facility] Work Phone: Comment on above: Negative <5 Equivoca l 5 - 9 Positive >9 Serum Barbara-1 antibody assay (u nits/volume)on 12-02-2021 Barbara-1 extractable nuclear Ab Qn (S) <0.2 AI 0.0-0.9 [facility] Work Phone: Serum Scl-70 extractable nuc lear antibody assay (units/volume)on 12-02-2021 SCL-70 extractable nuclear Ab Qn (S) <0.2 AI 0.0-0.9 [facility] Work Phone: Serum Pichardo extractable nucl ear antibody detectionon 12-02-2021 Pichardo extractable nuclear Ab Ql (S) <0.2 AI 0.0-0.9 [facility] Work Phone: Serum beef IgE antibody assa y (units/volume)on 12-02-2021 Beef IgE Qn (S) <0.10 kU/L Class 0 [facility] Work Phone: Serum classic neutrophil cyt oplasmic antibody assay (units/volume)on 12-02-2021 Neutrophil cytoplasmic Ab.classic Qn (S) <1:20 titer Neg:<1:20 [facility] Work Phone: Serum corn IgE antibody assa y (units/volume)on 12-02-2021 [place] IgE Qn (S) <0.10 kU/L Class 0 [facility] Work Phone: Serum cow milk IgE antibody assay (units/volume)on 12-02-2021 Cow milk IgE Qn (S) <0.10 kU/L Class 0 [facility] Work Phone: Serum or plasma C reactive p rotein measurement (mass/volume)on 12-02-2021 CRP [Mass/Vol] 4.95 mg/L 0.0-3.0 [facility] Work Phone: Comment on above: C-Reactive Protein ( CRP) provides useful information for thediagnosis, therapy and monitoring of inflammatory processesand associated diseases. For the evaluation of Relative Riskfor Cardiovascular Disease, a High Sensitivity CRP (HSCRP)should be ordered. Serum or plasma IgA measurem ent (mass/volume)on 12-02-2021 IgA [Mass/Vol] 326 mg/dL 64-422 [facility] Work Phone: Serum or plasma IgG measurem ent (mass/volume)on 12-02-2021 IgG [Mass/Vol] 1304 mg/dL [phone] [facility] Work Phone: Serum or plasma IgM measurem ent (mass/volume)on 12-02-2021 IgM [Mass/Vol] 47 mg/dL 26-217 [facility] Work Phone: Comment on above: Performed at: [place] [id number] Director: Addison Maradiaga PhD, Phone: [phone] at: [address] [id number] Director: Jarvis Jones MD, Phone: [phone] Serum or plasma angiotensin converting enzyme measurement (enzymatic activity/volume)on 12-02-2021 Angiotensin converting enzyme [Catalytic activity/Vol] 25 U/L 14-82 [facility] Work Phone: Serum peanut IgE antibody as say (units/volume)on 12-02-2021 Peanut IgE Qn (S) <0.10 kU/L Class 0 [facility] Work Phone: Serum perinuclear neutrophil cytoplasmic antibody titer by immunofluorescenceon 12-02-2021 Neutrophil cytoplasmic Ab.perinuclear IF (S) [Titer] <1:20 titer Neg:<1:20 [facility] Work Phone: Comment on above: The presence of posi tive fluorescence exhibiting P-ANCA orC-ANCA patterns alone is not specific for the diagnosis ofWegener's Granulomatosis (WG) or microscopic polyangiitis.Decisions about treatment should not be based solely onANCA IFA results. The [employer] ANCA Group Consensusrecommends follow up testing of positive sera with both MD-3 and MPO-ANCA enzyme immunoassays. As many as 5% serumsamples are positive only by EIA. Ref. AM J Clin Klrids8039;111:507-513. Serum pork IgE antibody assa y (units/volume)on 12-02-2021 Pork IgE Qn (S) <0.10 kU/L Class 0 [facility] Work Phone: Serum soybean IgE antibody a ssay (units/volume)on 12-02-2021 Soybean IgE Qn (S) <0.10 kU/L Class 0 [facility] Work Phone: Serum tissue transglutaminas e IgA antibody assay (units/volume)on 12-02-2021 tTG IgA Qn (S) 6 U/mL 0-3 [facility] Work Phone: Comment on above: Negative 0 - 3 Weak Positive 4 - 10 Positive >10 Tissue Transglutaminase (tTG) has been identified as the endomysial antigen. Studies have demonstr- ated that endomysial IgA antibodies have over 99% specificity for gluten sensitive enteropathy. Serum wheat IgE antibody ass ay (units/volume)on 12-02-2021 Wheat IgE Qn (S) <0.10 kU/L Class 0 [facility] Work Phone: Serum whole egg IgE antibody assay (units/volume)on 12-02-2021 Whole Egg IgE Qn (S) <0.10 kU/L Class 0 [facility] Work Phone: Thin prep Papanicolaou smear with manual screeningon 12-02-2021 Thin prep Papanicolaou smear with manual screening 185 U/L 84-246 [facility] Work Phone: OBSOLETEon 09-06-2017 OBSOLETE Refill (AGCARDWST) SAHARA MELÉNDEZ ([id number]) 1945 F NFRDate Time Provider Cyznyxrqrr44/26/17 RODRICK ROSARIO AGCARDWST During your visit today, we recorded the following information about you:Rodrick Rosario MD 09/06/2017 4:59 PM SignedThe following approved medication requests have been transmitted electronically.Signed Prescriptions Disp Refills atenolol (TENORMIN) 50 mg tablet 90 tablet 3 Sig: TAKE 1 TABLET EVERY DAY VILLA: No Authorizing Provider: RODRICK ROSARIO MDAllergies As of Date: 09/06/2017 Noted Allergy ReactionBENTYL (DICYCLOMINE HCL) 08/13/2013 1 - Mental Status ChangeCOMPAZINE (PROCHLORPERAZINE EDISY*09/07/2005 5 - Intolerance Comments: [place] like she was coming out of her [...] Status:Closed by ALVIN HALE LPN on 09/06/17 [facility] Vital Signs Date Time Vital Sign Value Performing Clinician Facility 03-13-2025 10:43-0400 Body height 160.[address] Rosendo Brown MD Work Phone: [facility] 03-13-2025 10:43-0400 Body weight 92.[address] Rsoendo Brown MD Work Phone: [facility] 03-12-2025 07:02-0400 Body mass index (BMI) [Ratio] 35.9 kg/m2 Dr. Rosendo Brown MD Work Phone: [facility] 02-25-2025 09:35-0400 Body mass index (BMI) [Ratio] 35.25 kg/m2 Rosendo Brown MD Work Phone: [facility] 02-25-2025 09:35-0400 Body weight 90.27 kg Rosendo Brown MD Work Phone: [facility] 02-25-2025 09:35-0400 Diastolic blood pressure 70 mm[Hg] Rosendo Brown MD Work Phone: [facility] 02-25-2025 09:35-0400 Heart rate 64 /min Rosendo Brown MD Work Phone: [facility] 02-25-2025 09:35-0400 SaO2% (BldA) [Mass fraction] 96 % Rosendo Brown MD Work Phone: [facility] 02-25-2025 09:35-0400 Systolic blood pressure 124 mm[Hg] Rosendo Brown MD Work Phone: [facility] 02-12-2025 08:41-0400 Body height 160.[address] Rosendo Brown MD Work Phone: [facility] 02-12-2025 08:41-0400 Body mass index (BMI) [Ratio] 35.9 kg/m2 Dr. Rosendo Brown MD Work Phone: [facility] 02-12-2025 08:41-0400 Body weight 92.[address] Rosendo Brown MD Work Phone: [facility] 02-12-2025 08:41-0400 Diastolic blood pressure 72 mm[Hg] Dr. Rosendo Brown MD Work Phone: [facility] 02-12-2025 08:41-0400 Heart rate 60 /min Dr. Rosendo Brown MD Work Phone: [facility] 02-12-2025 08:41-0400 Respiratory rate 18 /min Dr. Rosendo Brown MD Work Phone: [facility] 02-12-2025 08:41-0400 Systolic blood pressure 120 mm[Hg] Dr. Rosendo Brown MD Work Phone: [facility] 01-28-2025 11:23-0400 Heart rate 124 /min Dr. Rosendo Brown MD Work Phone: [facility] 01-28-2025 10:28-0400 Diastolic blood pressure 67 mm[Hg] Dr. Rosendo Brown MD Work Phone: [facility] 01-28-2025 10:28-0400 Systolic blood pressure 113 mm[Hg] Dr. Rosendo Brown MD Work Phone: [phone] [place] [address] 01-28-2025 10:15-0400 Body height 160.[address] Rosendo Brown MD Work Phone: [phone] [place] [address] 01-28-2025 10:15-0400 Body mass index (BMI) [Ratio] 35.7 kg/m2 Dr. Rosendo Brown MD Work Phone: [phone] [place] [address] 01-28-2025 10:15-0400 Body weight 91.[address] Rosendo Brown MD Work Phone: [phone] [place] [address] 01-28-2025 10:15-0400 Respiratory rate 18 /min Dr. Rosendo Brown MD Work Phone: [facility] 01-25-2025 08:09-0400 Body mass index (BMI) [Ratio] 35.61 kg/m2 Rosendo Brown MD Work Phone: [facility] 01-25-2025 08:09-0400 Body weight 91.17 kg Rosendo Brown MD Work Phone: [facility] 01-25-2025 08:09-0400 Diastolic blood pressure 64 mm[Hg] Rosendo Brown MD Work Phone: [facility] 01-25-2025 08:09-0400 Heart rate 92 /min Rosendo Brown MD Work Phone: [facility] 01-25-2025 08:09-0400 SaO2% (BldA) [Mass fraction] 98 % Rosendo Brown MD Work Phone: [facility] 01-25-2025 08:09-0400 Systolic blood pressure 110 mm[Hg] Rosendo Brown MD Work Phone: [facility] 01-21-2025 12:41-0400 Body height 160.[address] Rosendo Brown MD Work Phone: [phone] [place] [address] 01-21-2025 12:41-0400 Body mass index (BMI) [Ratio] 35.9 kg/m2 Dr. Rosendo Brown MD Work Phone: 3(336)088-955631 [place] [address] 01-21-2025 12:41-0400 Body weight 92.[address] Rosendo Brown MD Work Phone: [phone] [place] [address] 01-21-2025 12:41-0400 Diastolic blood pressure 66 mm[Hg] Dr. Rosendo Brown MD Work Phone: 4([phone])439-004031 [place] [address] 01-21-2025 12:41-0400 Heart rate 73 /min Dr. Rosendo Brown MD Work Phone: [phone] [place] [address] 01-21-2025 12:41-0400 Respiratory rate 18 /min Dr. Rosendo Brown MD Work Phone: 1(140)619-208431 [place] [address] 01-21-2025 12:41-0400 Systolic blood pressure 88 mm[Hg] Dr. Rosendo Brown MD Work Phone: 7(429)334-204931 [place] [address] 01-19-2025 13:36-0400 Body temperature 97.6 [degF] Dr. Rosendo Brown MD Work Phone: 4(299)297-795531 [place] [address] 01-19-2025 13:36-0400 Diastolic blood pressure 51 mm[Hg] Dr. Rosendo Brown MD Work Phone: 0(831)962-151131 [place] [address] 01-19-2025 13:36-0400 Heart rate 80 /min Dr. Rosendo Brown MD Work Phone: 4(006)563-313731 [place] [address] 01-19-2025 13:36-0400 Respiratory rate 17 /min Dr. Rosendo Brown MD Work Phone: 0(134)303-805531 [place] [address] 01-19-2025 13:36-0400 SaO2% (BldA) [Mass fraction] 97 % Dr. Rosendo Brown MD Work Phone: 5(836)178-945231 [place] [address] 01-19-2025 13:36-0400 Systolic blood pressure 112 mm[Hg] Dr. Rosendo Brown MD Work Phone: 5(472)618-252731 [place] [address] 01-19-2025 04:40-0400 Body mass index (BMI) [Ratio] 36.3 kg/m2 Dr. Rosendo Brown MD Work Phone: 9(594)470-479031 [place] [address] 01-19-2025 04:40-0400 Body weight [address] Rosendo Brown MD Work Phone: 1(451)297-985931 [place] [address] 01-17-2025 10:14-0400 Body height 160.[address] Rosendo Brown MD Work Phone: 0(248)481-432031 [place] [address] 01-17-2025 09:14-0400 Body temperature 98.3 [degF] Dr. Rosendo Brown MD Work Phone: 7(142)915-207931 [place] [address] 01-17-2025 09:14-0400 Diastolic blood pressure 98 mm[Hg] Dr. Rosendo Brown MD Work Phone: 3(487)011-269531 [place] [address] 01-17-2025 09:14-0400 Heart rate 89 /min Dr. Rosendo Brown MD Work Phone: 0(465)801-378431 [place] [address] 01-17-2025 09:14-0400 Respiratory rate 18 /min Dr. Rosendo Brown MD Work Phone: 9(437)090-581731 [place] [address] 01-17-2025 09:14-0400 SaO2% (BldA) [Mass fraction] 93 % Dr. Rosendo Brown MD Work Phone: 3(831)078-030531 [place] [address] 01-17-2025 09:14-0400 Systolic blood pressure 145 mm[Hg] Dr. Rosendo Brown MD Work Phone: 0(141)905-709231 [place] [address] 01-17-2025 05:15-0400 Body mass index (BMI) [Ratio] 38.7 kg/m2 Dr. Rosendo Brown MD Work Phone: 3(570)506-338631 [place] [address] 01-17-2025 05:15-0400 Body weight 99.[address] Rosendo Brown MD Work Phone: 1(432)485-690079 [place] [address] 01-16-2025 13:02-0400 Body mass index (BMI) [Ratio] 37.9 kg/m2 Dr. Rosendo Brown MD Work Phone: [facility] 01-16-2025 13:02-0400 Body weight 97.[address] Rosendo Brown MD Work Phone: [facility] 01-16-2025 13:02-0400 Diastolic blood pressure 84 mm[Hg] Dr. Rosendo Brown MD Work Phone: 8(145)511-883079 [place] [address] 01-16-2025 13:02-0400 Heart rate 174 /min Dr. Rosendo Brown MD Work Phone: 6(541)875-226331 [place] [address] 01-16-2025 13:02-0400 Respiratory rate 18 /min Dr. Rosendo Brown MD Work Phone: 6(441)585-294731 [place] [address] 01-16-2025 13:02-0400 SaO2% (BldA) [Mass fraction] 95 % Dr. Rosendo Brown MD Work Phone: 9(774)585-409479 [place] [address] 01-16-2025 13:02-0400 Systolic blood pressure 130 mm[Hg] Dr. Rosendo Brown MD Work Phone: [facility] 01-11-2025 14:23-0400 Body height 160 cm Rosendo Brown MD Work Phone: [facility] 01-11-2025 14:23-0400 Body mass index (BMI) [Ratio] 37.48 kg/m2 Rosendo Brown MD Work Phone: [facility] 01-11-2025 14:23-0400 Body temperature 98.8 [degF] Rosendo Brown MD Work Phone: [facility] 01-11-2025 14:23-0400 Body weight 95.98 kg Rosendo Brown MD Work Phone: [facility] 01-11-2025 14:23-0400 Diastolic blood pressure 60 mm[Hg] Rosendo Brown MD Work Phone: [facility] 01-11-2025 14:23-0400 Heart rate 66 /min Rosendo Brown MD Work Phone: [facility] 01-11-2025 14:23-0400 SaO2% (BldA) [Mass fraction] 97 % Rosendo Brown MD Work Phone: [facility] 01-11-2025 14:23-0400 Systolic blood pressure 112 mm[Hg] Rosendo Brown MD Work Phone: [facility] 10-24-2024 15:06-0500 Body height 160 cm Taylor Thompson MD Work Phone: [facility] 10-24-2024 15:06-0500 Body mass index (BMI) [Ratio] 37.09 kg/m2 Taylor Thompson MD Work Phone: [facility] 10-24-2024 15:06-0500 Body weight 94.98 kg Taylor Thompson MD Work Phone: [facility] 10-24-2024 15:06-0500 Diastolic blood pressure 62 mm[Hg] Taylor Thompson MD Work Phone: [facility] 10-24-2024 15:06-0500 Heart rate 66 /min Taylor Thompson MD Work Phone: [facility] 10-24-2024 15:06-0500 SaO2% (BldA) [Mass fraction] 98 % Taylor Thompson MD Work Phone: [facility] 10-24-2024 15:06-0500 Systolic blood pressure 98 mm[Hg] Taylor Thompson MD Work Phone: [facility] 10-02-2024 11:12-0500 Body mass index (BMI) [Ratio] 37.73 kg/m2 Rosendo Brown MD Work Phone: [facility] 10-02-2024 11:12-0500 Body weight 96.62 kg Rosendo Brown MD Work Phone: [facility] 10-02-2024 11:12-0500 Diastolic blood pressure 66 mm[Hg] Rosendo Brown MD Work Phone: [facility] 10-02-2024 11:12-0500 Heart rate 76 /min Rosendo Brown MD Work Phone: [facility] 10-02-2024 11:12-0500 Respiratory rate 16 /min Rosendo Brown MD Work Phone: [facility] 10-02-2024 11:12-0500 SaO2% (BldA) [Mass fraction] 99 % Rosendo Brown MD Work Phone: [facility] 10-02-2024 11:12-0500 Systolic blood pressure 124 mm[Hg] Rosendo Brown MD Work Phone: [facility] 07-26-2024 10:47-0500 Body height 160.[address] Rosendo Brown MD Work Phone: [facility] 07-26-2024 10:47-0500 Body mass index (BMI) [Ratio] 37 kg/m2 Dr. Rosendo Brown MD Work Phone: [facility] 07-26-2024 10:47-0500 Body weight 94.[address] Rosendo Brown MD Work Phone: [facility] 07-26-2024 10:47-0500 Diastolic blood pressure 80 mm[Hg] Dr. Rosendo Brown MD Work Phone: [facility] 07-26-2024 10:47-0500 Heart rate 83 /min Dr. Rosendo Brown MD Work Phone: [facility] 07-26-2024 10:47-0500 Respiratory rate 18 /min Dr. Rosendo Brown MD Work Phone: [facility] 07-26-2024 10:47-0500 SaO2% (BldA) [Mass fraction] 95 % Dr. Rosendo Brown MD Work Phone: [facility] 07-26-2024 10:47-0500 Systolic blood pressure 132 mm[Hg] Dr. Rosendo Brown MD Work Phone: [facility] 04-04-2024 09:54-0400 Body height 160 cm Rosendo Brown MD Work Phone: [facility] 04-04-2024 09:54-0400 Body mass index (BMI) [Ratio] 36.85 kg/m2 Rosendo Brown MD Work Phone: [facility] 04-04-2024 09:54-0400 Body temperature 98.91 [degF] Rosendo Brown MD Work Phone: [facility] 04-04-2024 09:54-0400 Body weight 94.35 kg Rosendo Brown MD Work Phone: [facility] 04-04-2024 09:54-0400 Diastolic blood pressure 76 mm[Hg] Rosendo Brown MD Work Phone: [facility] 04-04-2024 09:54-0400 Heart rate 72 /min Rosendo Brown MD Work Phone: [facility] 04-04-2024 09:54-0400 SaO2% (BldA) [Mass fraction] 97 % Rosendo Brown MD Work Phone: [facility] 04-04-2024 09:54-0400 Systolic blood pressure 114 mm[Hg] Rosendo Brown MD Work Phone: [facility] 03-14-2024 13:59-0400 Body mass index (BMI) [Ratio] 37.2 kg/m2 Rosendo Brown MD Work Phone: [facility] 03-14-2024 13:59-0400 Body weight 95.25 kg Rosendo Brown MD Work Phone: [facility] 03-14-2024 13:59-0400 Diastolic blood pressure 68 mm[Hg] Rosendo Brown MD Work Phone: [facility] 03-14-2024 13:59-0400 Heart rate 73 /min Rosendo Brown MD Work Phone: [facility] 03-14-2024 13:59-0400 SaO2% (BldA) [Mass fraction] 95 % Rosendo Brown MD Work Phone: [facility] 03-14-2024 13:59-0400 Systolic blood pressure 122 mm[Hg] Rosendo Brown MD Work Phone: [facility] 02-10-2024 10:33-0400 Body mass index (BMI) [Ratio] 37.38 kg/m2 Angelica Suppan COUNTER TENDER.FLEECE TIER Work Phone: [facility] 02-10-2024 10:33-0400 Body temperature 98.1 [degF] Angelica Suppan COUNTER TENDER.FLEECE TIER Work Phone: [facility] 02-10-2024 10:33-0400 Body weight 95.71 kg Angelica Suppan COUNTER TENDER.FLEECE TIER Work Phone: [facility] 02-10-2024 10:33-0400 Diastolic blood pressure 62 mm[Hg] Angelica Suppan COUNTER TENDER.FLEECE TIER Work Phone: [facility] 02-10-2024 10:33-0400 Heart rate 74 /min Angelica Suppan COUNTER TENDER.FLEECE TIER Work Phone: [facility] 02-10-2024 10:33-0400 Respiratory rate 20 /min Angelica Suppan COUNTER TENDER.FLEECE TIER Work Phone: [facility] 02-10-2024 10:33-0400 SaO2% (BldA) [Mass fraction] 99 % Angelica Suppan COUNTER TENDER.FLEECE TIER Work Phone: [facility] 02-10-2024 10:33-0400 Systolic blood pressure 112 mm[Hg] Angelica Suppan COUNTER TENDER.FLEECE TIER Work Phone: [facility] 01-13-2024 11:46-0400 Body height 160 cm Rosendo Brown MD Work Phone: [facility] 01-13-2024 11:46-0400 Body mass index (BMI) [Ratio] 37.2 kg/m2 Rosendo Brown MD Work Phone: [facility] 01-13-2024 11:46-0400 Body weight 95.25 kg Rosendo Brown MD Work Phone: [facility] 01-13-2024 11:46-0400 Diastolic blood pressure 68 mm[Hg] Rosendo Brown MD Work Phone: [facility] 01-13-2024 11:46-0400 Heart rate 80 /min Rosendo Brown MD Work Phone: [facility] 01-13-2024 11:46-0400 SaO2% (BldA) [Mass fraction] 98 % Rosendo Brown MD Work Phone: [facility] 01-13-2024 11:46-0400 Systolic blood pressure 112 mm[Hg] Rosendo Brown MD Work Phone: [facility] 11-18-2023 09:18-0500 Body height 160.[address] Rosendo Brown Work Phone: [facility] 11-18-2023 09:18-0500 Body mass index (BMI) [Ratio] 37.7 kg/m2 Dr. Rosendo Brown Work Phone: [facility] 11-18-2023 09:18-0500 Body weight 96.[address] Rosendo Brown Work Phone: [facility] 10-31-2023 13:56-0500 Body height 160 cm Rosendo Brown MD Work Phone: [facility] 10-31-2023 13:56-0500 Body weight 96.89 kg Rosendo Brown MD Work Phone: [facility] 10-31-2023 13:56-0500 Diastolic blood pressure 52 mm[Hg] Rosendo Brown MD Work Phone: [facility] 10-31-2023 13:56-0500 Heart rate 65 /min Rosendo Brown MD Work Phone: [facility] 10-31-2023 13:56-0500 SaO2% (BldA) [Mass fraction] 97 % Rosendo Brown MD Work Phone: [facility] 10-31-2023 13:56-0500 Systolic blood pressure 104 mm[Hg] Rosendo Brown MD Work Phone: [facility] 04-27-2023 13:48-0400 Body weight 94.35 kg Rosendo Brown MD Work Phone: [facility] 04-27-2023 13:48-0400 Diastolic blood pressure 72 mm[Hg] Rosendo Brown MD Work Phone: [facility] 04-27-2023 13:48-0400 Heart rate 67 /min Rosendo Brown MD Work Phone: [facility] 04-27-2023 13:48-0400 SaO2% (BldA) [Mass fraction] 96 % Rosendo Brown MD Work Phone: [facility] 04-27-2023 13:48-0400 Systolic blood pressure 117 mm[Hg] Rosendo Brown MD Work Phone: [facility] 03-24-2023 10:31-0400 Body temperature 98.9 [degF] Dr. Rosendo Brown Work Phone: [facility] 03-24-2023 10:31-0400 Diastolic blood pressure 65 mm[Hg] Dr. Rosendo Brown Work Phone: [facility] 03-24-2023 10:31-0400 Heart rate 60 /min Dr. Rosendo Brown Work Phone: [facility] 03-24-2023 10:31-0400 Respiratory rate 18 /min Dr. Rosendo Brown Work Phone: [facility] 03-24-2023 10:31-0400 SaO2% (BldA) [Mass fraction] 93 % Dr. Rosendo Brown Work Phone: [facility] 03-24-2023 10:31-0400 Systolic blood pressure 120 mm[Hg] Dr. Rosendo Brown Work Phone: [facility] 03-24-2023 08:48-0400 Body height 160.[address] Rosendo Brown Work Phone: [facility] 03-24-2023 08:48-0400 Body mass index (BMI) [Ratio] 37 kg/m2 Dr. Rosendo Brown Work Phone: [facility] 03-24-2023 08:48-0400 Body weight [address] Rosendo Brown Work Phone: [facility] 03-04-2023 13:51-0400 Body temperature 98.4 [degF] Brock Avelar MD Work Phone: [facility] 03-04-2023 13:51-0400 Body weight 95.98 kg Brock Avelar MD Work Phone: [facility] 03-04-2023 13:51-0400 Diastolic blood pressure 76 mm[Hg] Brock Avelar MD Work Phone: [facility] 03-04-2023 13:51-0400 Heart rate 74 /min Brock Avelar MD Work Phone: [facility] 03-04-2023 13:51-0400 Respiratory rate 18 /min Brock Avelar MD Work Phone: [facility] 03-04-2023 13:51-0400 SaO2% (BldA) [Mass fraction] 96 % Brock Avelar MD Work Phone: [facility] 03-04-2023 13:51-0400 Systolic blood pressure 132 mm[Hg] Brock Avelar MD Work Phone: [facility] 02-25-2023 07:56-0400 Body temperature 98.1 [degF] Rosendo Martinez Jr., MD Work Phone: [facility] 02-25-2023 07:56-0400 Body weight 95.44 kg Rosendo Martinez Jr., MD Work Phone: [facility] 02-25-2023 07:56-0400 Diastolic blood pressure 73 mm[Hg] Rosendo Martinez Jr., MD Work Phone: [facility] 02-25-2023 07:56-0400 Heart rate 68 /min Rosendo Martinez Jr., MD Work Phone: [facility] 02-25-2023 07:56-0400 Respiratory rate 18 /min Rosendo Martinez Jr., MD Work Phone: [facility] 02-25-2023 07:56-0400 SaO2% (BldA) [Mass fraction] 95 % Rosendo Martinez Jr., MD Work Phone: [facility] 02-25-2023 07:56-0400 Systolic blood pressure 116 mm[Hg] Rosendo Martinez Jr., MD Work Phone: [facility] 02-15-2023 13:09-0400 Body height 160.[address] Rosendo Brown Work Phone: [facility] 02-15-2023 13:09-0400 Body mass index (BMI) [Ratio] 37.9 kg/m2 Dr. Rosendo Brown Work Phone: [facility] 02-15-2023 13:09-0400 Body weight 97.[address] Rosendo Brown Work Phone: [facility] 02-15-2023 13:09-0400 Diastolic blood pressure 66 mm[Hg] Dr. Rosendo Brown Work Phone: [facility] 02-15-2023 13:09-0400 Heart rate 64 /min Dr. Rosendo Brown Work Phone: [facility] 02-15-2023 13:09-0400 Respiratory rate 16 /min Dr. Rosendo Brown Work Phone: [facility] 02-15-2023 13:09-0400 Systolic blood pressure 125 mm[Hg] Dr. Rosendo Brown Work Phone: [facility] 02-13-2023 12:05-0400 Body temperature 98.1 [degF] Carina Parker APRN.STUDY ABROAD COORDINATOR Work Phone: [facility] 02-13-2023 12:05-0400 Body weight 96.53 kg Carina Parker APRN.STUDY ABROAD COORDINATOR Work Phone: [facility] 02-13-2023 12:05-0400 Diastolic blood pressure 86 mm[Hg] Carina Parker COUNTER TENDER.STUDY ABROAD COORDINATOR Work Phone: [facility] 02-13-2023 12:05-0400 Heart rate 70 /min Carina Parker COUNTER TENDER.STUDY ABROAD COORDINATOR Work Phone: [facility] 02-13-2023 12:05-0400 Respiratory rate 22 /min Carina Parker COUNTER TENDER.STUDY ABROAD COORDINATOR Work Phone: [facility] 02-13-2023 12:05-0400 SaO2% (BldA) [Mass fraction] 98 % Carina Parker COUNTER TENDER.STUDY ABROAD COORDINATOR Work Phone: [facility] 02-13-2023 12:05-0400 Systolic blood pressure 142 mm[Hg] Carina Parker COUNTER TENDER.STUDY ABROAD COORDINATOR Work Phone: [facility] 01-25-2023 18:23-0400 Diastolic blood pressure 60 mm[Hg] Mary Haagen COUNTER TENDER.STUDY ABROAD COORDINATOR Work Phone: [facility] 01-25-2023 18:23-0400 Systolic blood pressure 126 mm[Hg] Mary Haagen COUNTER TENDER.STUDY ABROAD COORDINATOR Work Phone: [facility] 01-25-2023 14:10-0400 Body weight 95.71 kg Mary Haagen COUNTER TENDER.STUDY ABROAD COORDINATOR Work Phone: [facility] 01-25-2023 14:10-0400 Heart rate 63 /min Mary Haagen COUNTER TENDER.STUDY ABROAD COORDINATOR Work Phone: [facility] 01-25-2023 14:10-0400 Respiratory rate 16 /min Mary Haagen COUNTER TENDER.STUDY ABROAD COORDINATOR Work Phone: [facility] 01-25-2023 14:10-0400 SaO2% (BldA) [Mass fraction] 97 % Mary Haagen COUNTER TENDER.STUDY ABROAD COORDINATOR Work Phone: [facility] 01-21-2023 10:56-0400 Body temperature 98.3 [degF] Dr. Rosendo Brown Work Phone: 6(764)654-213879 [place] [address] 01-21-2023 10:56-0400 Diastolic blood pressure 46 mm[Hg] Dr. Rosendo Brown Work Phone: 5(543)165-483731 [place] [address] 01-21-2023 10:56-0400 Heart rate 62 /min Dr. Rosendo Brown Work Phone: 3(521)241-215831 [place] [address] 01-21-2023 10:56-0400 Respiratory rate 18 /min Dr. Rosendo Brown Work Phone: 5(092)886-773431 [place] [address] 01-21-2023 10:56-0400 SaO2% (BldA) [Mass fraction] 93 % Dr. Rosendo Brown Work Phone: 5(547)802-759231 [place] [address] 01-21-2023 10:56-0400 Systolic blood pressure 122 mm[Hg] Dr. Rosendo Brown Work Phone: 8(879)430-287331 [place] [address] 01-21-2023 05:47-0400 Body mass index (BMI) [Ratio] 36.6 kg/m2 Dr. Rosendo Brown Work Phone: 8(213)374-598731 [place] [address] 01-21-2023 05:47-0400 Body weight 93.[address] Rosendo Brown Work Phone: 0(531)889-065031 [place] [address] 01-20-2023 13:09-0400 Body temperature 98 [degF] Dr. Rosendo Brown Work Phone: 5(197)065-952431 [place] [address] 01-20-2023 13:09-0400 Diastolic blood pressure 67 mm[Hg] Dr. Rosendo Brown Work Phone: 6(203)218-535831 [place] [address] 01-20-2023 13:09-0400 Heart rate 62 /min Dr. Rosendo Brown Work Phone: 3(041)490-068931 [place] [address] 01-20-2023 13:09-0400 Respiratory rate 14 /min Dr. Rosendo Brown Work Phone: 9(895)309-470931 [place] [address] 01-20-2023 13:09-0400 SaO2% (BldA) [Mass fraction] 97 % Dr. Rosendo Brown Work Phone: 3(170)812-364331 [place] [address] 01-20-2023 13:09-0400 Systolic blood pressure 144 mm[Hg] Dr. Rosendo Brown Work Phone: [facility] 01-20-2023 11:05-0400 Body height 160.[address] Rosendo Brown Work Phone: [facility] 01-20-2023 11:05-0400 Body mass index (BMI) [Ratio] 41 kg/m2 Dr. Rosendo Brown Work Phone: [facility] 01-20-2023 11:05-0400 Body weight 105.[address] Rosendo Brown Work Phone: [facility] 01-19-2023 10:35-0400 Body weight 93.89 kg Mehnaz Eduardo APRN.STUDY ABROAD COORDINATOR Work Phone: [facility] 01-19-2023 10:35-0400 Diastolic blood pressure 76 mm[Hg] Mehnaz Eduardo APRN.STUDY ABROAD COORDINATOR Work Phone: [facility] 01-19-2023 10:35-0400 Systolic blood pressure 128 mm[Hg] Mehnaz Eduardo COUNTER TENDER.STUDY ABROAD COORDINATOR Work Phone: [facility] 01-02-2023 10:02-0400 Body temperature 98.6 [degF] Cara Older COUNTER TENDER.STUDY ABROAD COORDINATOR Work Phone: [facility] 01-02-2023 10:02-0400 Body weight 94.35 kg Cara Older COUNTER TENDER.STUDY ABROAD COORDINATOR Work Phone: [facility] 01-02-2023 10:02-0400 Diastolic blood pressure 80 mm[Hg] Cara Older COUNTER TENDER.STUDY ABROAD COORDINATOR Work Phone: [facility] 01-02-2023 10:02-0400 Heart rate 80 /min Cara Older COUNTER TENDER.STUDY ABROAD COORDINATOR Work Phone: [facility] 01-02-2023 10:02-0400 Respiratory rate 16 /min Cara Older COUNTER TENDER.STUDY ABROAD COORDINATOR Work Phone: [facility] 01-02-2023 10:02-0400 SaO2% (BldA) [Mass fraction] 98 % Cara Older COUNTER TENDER.STUDY ABROAD COORDINATOR Work Phone: [facility] 01-02-2023 10:02-0400 Systolic blood pressure 130 mm[Hg] Cara Nava APRN.STUDY ABROAD COORDINATOR Work Phone: [facility] 11-01-2022 09:53-0500 Body height 160 cm Rosendo Brown MD Work Phone: [facility] 11-01-2022 09:53-0500 Body weight 96.62 kg Rosendo Brown MD Work Phone: [facility] 11-01-2022 09:53-0500 Diastolic blood pressure 74 mm[Hg] Rosendo Brown MD Work Phone: [facility] 11-01-2022 09:53-0500 Heart rate 63 /min Rosendo Brown MD Work Phone: [facility] 11-01-2022 09:53-0500 SaO2% (BldA) [Mass fraction] 95 % Rosendo Brown MD Work Phone: [facility] 11-01-2022 09:53-0500 Systolic blood pressure 120 mm[Hg] Rosendo Brown MD Work Phone: [facility] 10-16-2022 11:58-0500 Body temperature 97.5 [degF] Diane Dawn APRN.STUDY ABROAD COORDINATOR Work Phone: [facility] 10-16-2022 11:58-0500 Body weight 96.16 kg Diane Dawn APRN.STUDY ABROAD COORDINATOR Work Phone: [facility] 10-16-2022 11:58-0500 Diastolic blood pressure 78 mm[Hg] Diane Dawn APRN.STUDY ABROAD COORDINATOR Work Phone: [facility] 10-16-2022 11:58-0500 Heart rate 86 /min Diane Dawn APRN.STUDY ABROAD COORDINATOR Work Phone: [facility] 10-16-2022 11:58-0500 Respiratory rate 18 /min Diane Dawn APRN.STUDY ABROAD COORDINATOR Work Phone: [facility] 10-16-2022 11:58-0500 SaO2% (BldA) [Mass fraction] 96 % Diane Dawn APRN.STUDY ABROAD COORDINATOR Work Phone: [facility] 10-16-2022 11:58-0500 Systolic blood pressure 124 mm[Hg] Diane Dawn APRN.STUDY ABROAD COORDINATOR Work Phone: [facility] 04-27-2022 12:16-0400 Body height 160 cm Rosendo Brown MD Work Phone: [facility] 04-27-2022 12:16-0400 Body weight 89.27 kg Rosendo Brown MD Work Phone: [facility] 04-27-2022 12:16-0400 Diastolic blood pressure 64 mm[Hg] Rosendo Brown MD Work Phone: [facility] 04-27-2022 12:16-0400 Heart rate 63 /min Rosendo Brown MD Work Phone: [facility] 04-27-2022 12:16-0400 SaO2% (BldA) [Mass fraction] 95 % Rosendo Brown MD Work Phone: [facility] 04-27-2022 12:16-0400 Systolic blood pressure 110 mm[Hg] Rosendo Brown MD Work Phone: [facility] 04-05-2022 10:47-0400 Body height 160.[address] Rosendo Brown Work Phone: [facility] Work Phone: 04-05-2022 10:47-0400 Body mass index (BMI) [Ratio] 34.8 kg/m2 Dr. Rosendo Brown Work Phone: [facility] Work Phone: 04-05-2022 10:47-0400 Body weight 89.[address] Rosendo Brown Work Phone: [facility] Work Phone: 04-05-2022 10:47-0400 Diastolic blood pressure 70 mm[Hg] Dr. Rosendo Brown Work Phone: [facility] Work Phone: 04-05-2022 10:47-0400 Heart rate 60 /min Dr. Rosendo Brown Work Phone: [facility] Work Phone: 04-05-2022 10:47-0400 Respiratory rate 16 /min Dr. Rosendo Brown Work Phone: [facility] Work Phone: 04-05-2022 10:47-0400 Systolic blood pressure 124 mm[Hg] Dr. Rosendo Brown Work Phone: [facility] Work Phone: 02-24-2022 12:20-0400 Body temperature 97.2 [degF] Dr. Rosendo Brown Work Phone: [facility] Work Phone: 02-24-2022 12:20-0400 Diastolic blood pressure 68 mm[Hg] Dr. Rosendo Brown Work Phone: [facility] Work Phone: 02-24-2022 12:20-0400 Heart rate 67 /min Dr. Rsoendo Brown Work Phone: [facility] Work Phone: 02-24-2022 12:20-0400 Respiratory rate 16 /min Dr. Rosendo Brown Work Phone: [facility] Work Phone: 02-24-2022 12:20-0400 SaO2% (BldA) [Mass fraction] 96 % Dr. Rosendo Brown Work Phone: [facility] Work Phone: 02-24-2022 12:20-0400 Systolic blood pressure 130 mm[Hg] Dr. Rosendo Brown Work Phone: [facility] Work Phone: 02-24-2022 10:32-0400 Body height 160.[address] Rosendo Brown Work Phone: [facility] Work Phone: 02-24-2022 10:32-0400 Body mass index (BMI) [Ratio] 33.5 kg/m2 Dr. Rosendo Brown Work Phone: [facility] Work Phone: 02-24-2022 10:32-0400 Body weight [address] Rosendo Brown Work Phone: [facility] Work Phone: 02-08-2022 10:02-0400 Body temperature 98.91 [degF] Brock Avelar MD Work Phone: [facility] 02-08-2022 10:02-0400 Body weight 90.27 kg Brock Avelar MD Work Phone: [facility] 02-08-2022 10:02-0400 Diastolic blood pressure 70 mm[Hg] Brock Avelar MD Work Phone: [facility] 02-08-2022 10:02-0400 Heart rate 70 /min Brock Avelar MD Work Phone: [facility] 02-08-2022 10:02-0400 Respiratory rate 16 /min Brock Avelar MD Work Phone: [facility] 02-08-2022 10:02-0400 SaO2% (BldA) [Mass fraction] 96 % Brock Avelar MD Work Phone: [facility] 02-08-2022 10:02-0400 Systolic blood pressure 140 mm[Hg] Brock Avelar MD Work Phone: [facility] Encounters Encounter Date Encounter Type Care Provider Facility Start: 04-17-2025 ambulatory Lawrence David Facility :[facility] Start: 04-01-2025 End: 04-01-2025 Patient encounter procedure Lawrence David DO -[facility] Work Phone: Start: 04-01-2025 End: 04-01-[address] Rosendo Brown MD Work Phone: [facility] Start: 03-28-2025 ambulatory TAYLOR THOMPSON Facility:[id number] Start: 03-28-2025 End: 03-28-2025 Subsequent hospital visit [...] encounter status Harmony Callahan MD Work Phone: [facility] Start: 03-13-2025 End: 04-01-2025 Telephone encounter A Enrrique Callahan MD Work Phone: Cardiothoracic Comment on above: Referral Information ; Pre-Op CTHO Consult; Cardiac Preop Checklist Start: 03-13-2025 End: 03-13-2025 Admission to same day surgery center Dr. Cayetano Marie MD -Trimming Department Blocker/Special Procedures Work Phone: Start: 03-13-2025 End: 03-13-[address] Rosendo Brown MD Work Phone: -Trimming Department Blocker/Special Procedures Start: 03-13-2025 ambulatory Cayetano Marie Facility:[facility] Start: 03-13-2025 Non-patient / Non-visit Dr. Arianna WILSON [facility] Start: 03-04-2025 End: 03-04-2025 Refill Rosendo Brown MD Work Phone: [facility] Comment on above: Refill Request Start: 02-26-2025 End: 02-26-2025 ambulatory Rosendo Brown MD Work Phone: [facility] Comment on above: Allied Health Visit (Medication Adherence Outreach/) Start: 02-25-2025 End: 02-25-2025 Patient encounter procedure Rosendo Brown MD Work Phone: [facility] [place] Comment on above: Mitral valve insuffi ciency, [...] Start: 02-25-2025 End: 02-25-2025 ambulatory ROSENDO BROWN Facility:[facility] Start: 02-18-2025 Non-patient / Non-visit Dr. Arianna WILSON -[facility] Start: 02-18-2025 End: 02-18-[address] Rosendo Brown MD Work Phone: [facility] Work Phone: Start: 02-18-2025 End: 02-18-2025 Patient encounter procedure Antonio San SALES AGENT PROTECTIVE SERVICE-C -Cardiovascular Services Work Phone: Start: 02-18-2025 End: 02-18-2025 ambulatory Antonio San NP Facility:[facility] Start: 02-12-2025 End: 02-12-2025 Patient encounter procedure Antonio San SALES AGENT PROTECTIVE SERVICE-C -[facility] Work Phone: Start: 02-12-2025 End: 02-12-[address] Rosendo Brown MD Work Phone: [facility] Work Phone: Start: 02-05-2025 End: 02-05-[address] Rosendo Brown MD Work Phone: [facility] Work Phone: Start: 02-05-2025 End: 02-05-2025 Patient encounter procedure Lawrence David DO -Laboratory Work Phone: Start: 02-05-2025 End: 02-05-2025 Telephone encounter Rosendo Brown MD Work Phone: [facility] Comment on above: Patient Question (re garding upcoming brain MRI and follow up with Dr. Thompson) positive IFOBT refer ral; Patient Update Start: 02-05-2025 End: 02-05-2025 ambulatory Lawrence [place] Facility:[facility] Start: 01-28-2025 End: 01-28-2025 Patient encounter procedure Antonio FELDER -[facility] Work Phone: Start: 01-28-2025 End: 01-28-[address] Rosendo Brown MD Work Phone: [facility] Work Phone: Start: 01-26-2025 End: 03-28-2025 Follow-up encounter Rosendo Brown MD Work Phone: [facility] Start: 01-25-2025 End: 01-25-[address] Rosendo Brown MD Work Phone: [facility] Work Phone: Start: 01-25-2025 End: 01-25-2025 ambulatory [facility] Facility:[facility] Start: 01-25-2025 End: 01-25-2025 Patient encounter procedure Lawrence [place] DO -[facility] Work Phone: Comment on above: Chronic [...] upper eyelid Start: 01-25-2025 End: 01-25-2025 ambulatory [facility] Facility:[facility] Start: 01-21-2025 End: 01-21-2025 Patient encounter procedure Antonio Turner Mena SALES AGENT PROTECTIVE SERVICE-C -Laboratory Work Phone: Start: 01-21-2025 End: 01-21-2025 Patient encounter procedure Antonio Turner Mena SALES AGENT PROTECTIVE SERVICE-C -[facility] Work Phone: Start: 01-21-2025 End: 01-22-2025 Patient Outreach Rosendo Brown MD Work Phone: [facility] Comment on above: Transition Of Care Start: 01-21-2025 End: 01-21-2025 ambulatory Antonio San SALES AGENT PROTECTIVE SERVICE Facility:[facility] Start: 01-19-2025 Non-patient / Non-visit Dr. Veronica Louise DO [facility] Work Phone: Start: 01-19-2025 End: 01-19-2025 ambulatory [facility] Start: 01-19-2025 End: 01-19-2025 Non-patient / Non-visit Dr. Pato Simmons MD -[facility] Work Phone: Start: 01-18-2025 Non-patient / Non-visit Dr. Veronica Louise DO [facility] Work Phone: Start: 01-18-2025 Non-patient / Non-visit Dr. Liat rahman MD -[facility] Start: 01-18-2025 End: 01-18-2025 ambulatory Ivonne Singleton RN Manager [employer] Comment on above: Opened In Error Start: 01-17-2025 ambulatory Liat Hale Facility:[facility] Start: 01-17-2025 Non-patient / Non-visit Dr. Liat rahman MD -[facility] Start: 01-17-2025 Non-patient / Non-visit Dr. Fiorella Simmons MD -[facility] Start: 01-17-2025 ambulatory Pato Simmons Facility :[facility] Start: 01-17-2025 End: 01-19-2025 Evaluation and management of inpatient Dr. Veronica Louise DO [facility] Work Phone: Start: 01-16-2025 End: 01-16-[address] Rosendo Brown MD Work Phone: [facility] Work Phone: Start: 01-16-2025 End: 01-16-2025 Patient encounter procedure Antonio San SALES AGENT PROTECTIVE SERVICE-C -Laboratory Work Phone: Start: 01-16-2025 End: 01-16-2025 Telephone encounter Rosendo Brown MD Work Phone: [facility] Comment on above: Results Start: 01-16-2025 End: 01-16-2025 Patient encounter procedure Antonio San SALES AGENT PROTECTIVE SERVICE-C -[facility] Work Phone: Start: 01-16-2025 End: 01-16-2025 ambulatory Antonio San SALES AGENT PROTECTIVE SERVICE [facility] Start: 01-16-2025 End: 01-16-2025 ambulatory Antonio San SALES AGENT PROTECTIVE SERVICE Facility:[facility] Start: 01-14-2025 End: 01-14-2025 Telephone encounter Rosendo Brown MD Work Phone: [facility] Comment on above: Results Start: 01-11-2025 End: 01-11-2025 Patient encounter procedure Rosendo Brown MD Work Phone: [facility] Comment on above: Diarrhea, unspecifie d type (Primary Dx); Irritable bowel syndrome with diarrhea; Colitis; Celiac disease (HCC); Mitral valve prolapse; Paroxysmal atrial fibrillation (HCC) Start: 01-11-2025 End: 01-11-2025 ambulatory Rosendo Brown MD Work Phone: [facility] Comment on above: Nausea Start: 12-03-2024 End: 12-03-2024 Refill Rosendo Brown MD Work Phone: [address] [place] [address] Comment on above: Refill Request Start: 11-09-2024 End: 11-09-[address] Rosendo Brown MD Work Phone: [facility] Work Phone: Start: 11-09-2024 End: 11-09-2024 Patient encounter procedure Lawrence David DO [facility] Work Phone: Start: 11-09-2024 End: 11-09-2024 ambulatory Antonio Johnny Mena BRITO Facility:[facility] Start: 10-31-2024 End: 10-31-2024 Telephone encounter Taylor Thompson MD Work Phone: Home Respiratory Therapy Comment on above: PAP Therapy Follow U p Start: 10-24-2024 End: 10-24-2024 ambulatory TAYLOR THOMPSON Facility:[facility] Start: 10-24-2024 End: 10-24-2024 Office consultation new/estab patient 80 min Taylor Thompson MD Work Phone: Geriatrics Comment on above: Cognitive impairment , mild, so stated (Primary Dx); Memory impairment; Word finding difficulty; Sleep apnea, unspecified type Start: 10-03-2024 End: 10-03-2024 Telephone encounter Rosendo Brown MD Work Phone: [facility] Comment on above: Results; Erroneous e ncounter-disregard Start: 10-02-2024 End: 10-02-2024 ambulatory ROSENDO BROWN Facility:[facility] Start: 10-02-2024 End: 10-02-2024 Patient encounter procedure Rosendo Brown MD Work Phone: [facility] Comment on above: Chronic diastolic (c ongestive) [...] 09-13-2024 ambulatory Mehnaz Noel MA [facility] Start: 09-13-2024 End: 09-13-2024 Patient encounter procedure Mehnaz Noel MA [facility] Comment on above: Population Health Na vigation Outreach ([employer] ) Start: 08-20-2024 ambulatory Cayetano Marie Facility:[facility] Start: 08-20-2024 Non-patient / Non-visit Dr. Arianna WILSON -[facility] Start: 08-20-2024 End: 08-20-2024 Patient encounter procedure Antonio San SALES AGENT PROTECTIVE SERVICE-C -Cardiovascular Services Work Phone: Start: 08-20-2024 End: 08-20-2024 ambulatory Antonio San SALES AGENT PROTECTIVE SERVICE Facility:[facility] Start: 07-26-2024 End: 07-26-2024 Patient encounter procedure Antonio San SALES AGENT PROTECTIVE SERVICE-C -Laboratory Work Phone: Start: 07-26-2024 End: 07-26-2024 Patient encounter procedure Antonio San SALES AGENT PROTECTIVE SERVICE-C -[facility] Work Phone: Start: 07-26-2024 End: 07-26-2024 ambulatory Antonio San SALES AGENT PROTECTIVE SERVICE [facility] Start: 07-26-2024 End: 07-26-2024 ambulatory Antonio San SALES AGENT PROTECTIVE SERVICE Facility:[facility] Start: 07-02-2024 End: 07-02-2024 Refill Rosendo Brown MD Work Phone: Family [facility] Comment on above: Refill Request Start: 06-19-2024 End: 06-19-2024 Telephone encounter Rosendo Brown MD Work Phone: [facility] [place] Start: 06-18-2024 End: 06-19-2024 Refill Rosendo Brown MD Work Phone: [facility] [place] Comment on above: Refill Request Start: 06-11-2024 End: 06-11-2024 Refill Rosendo Brown MD Work Phone: [facility] [place] Comment on above: Refill Request Start: 05-10-2024 End: 05-10-2024 ambulatory Lawrence David Facility:[facility] Start: 05-04-2024 End: 06-04-2024 Telephone encounter Rosendo Brown MD Work Phone: [facility] Comment on above: Results Start: 05-04-2024 End: 05-04-2024 ambulatory [facility] Facility:[facility] Start: 04-30-2024 End: 04-30-2024 Telephone encounter Rosendo Brown MD Work Phone: [facility] Comment on above: mammogram order Start: 04-27-2024 Chart abstracting Rosendo Chisholm MD Work Phone: [facility] Start: 04-26-2024 End: 04-26-2024 ambulatory [facility] Facility:[facility] Start: 04-04-2024 Telephone encounter Rosendo Brown MD Work Phone: [facility] Comment on above: Medication Question Start: 04-04-2024 End: 04-04-2024 Subsequent hospital visit by physician X[facility] Work Phone: Radiology Comment on above: Cough, unspecified t ype [R05.9] Start: 04-04-2024 End: 04-04-2024 ambulatory [facility] Facility:[facility] Start: 04-04-2024 End: 04-04-2024 Patient encounter procedure Rosendo Brown MD Work Phone: [facility] Comment on above: Cough, unspecified t ype (Primary Dx); Wheezing Start: 03-14-2024 End: 03-14-2024 Patient encounter procedure Rosendo Brown MD Work Phone: [facility] Comment on above: Adjustment reaction with anxiety and depression Start: 02-22-2024 Refill Rosendo Brown MD Work Phone: [facility] Comment on above: Refill Request Start: 02-10-2024 End: 02-10-2024 Office outpatient visit 15 minutes Angelica Ivan APRN.FLEECE TIER Work Phone: [facility] Comment on above: Anxiety with depress ion (Primary Dx); Situational anxiety Start: 01-13-2024 End: 01-13-2024 Patient encounter procedure Rosendo Brown MD Work Phone: [facility] Comment on above: Situational anxiety (Primary Dx) Start: 01-04-2024 End: 01-04-[address] Rosendo Brown Work Phone: [facility] Work Phone: Start: 01-04-2024 End: 01-04-[address] Rosendo Brown Work Phone: [facility] Work Phone: Start: 12-02-2023 End: 12-02-[address] Rosendo Brown Work Phone: [facility] Work Phone: Start: 12-02-2023 End: 12-02-[address] Rosendo Brown Work Phone: [facility]-Laboratory Work Phone: Start: 11-24-2023 ambulatory Velvet cruz PA-C Work Phone: Neurology Comment on above: Sleep study Start: 11-24-2023 E-mail encounter fro m caregiver Velvet Patel PA-C Work Phone: [facility] Start: 11-21-2023 End: 11-22-2023 ambulatory SELF Facility:[facility] Start: 11-18-2023 End: 11-18-[address] Rosendo Brown Work Phone: [facility] Work Phone: Start: 11-18-2023 End: 11-18-[address] Rosendo Brown Work Phone: [facility] Work Phone: Start: 10-31-2023 End: 10-31-2023 Patient encounter procedure Rosendo Brown MD Work Phone: [facility] Comment on above: Other migraine witho ut [...] m caregiver Velvet Patel PA-C Work Phone: [facility] Start: 10-12-2023 Telephone encounter Velvet zhu PA-C Work Phone: Neurology Comment on above: Insurance Authorizat ion Start: 10-10-2023 End: 10-10-2023 Subsequent hospital visit by physician Aashish [facility] Work Phone: Radiology Comment on above: Acute pain of right shoulder [M25.511] Start: 08-02-2023 Refill Rosendo Brown MD Work Phone: [facility] Comment on above: Refill Request Start: 04-27-2023 End: 04-27-2023 Patient encounter procedure Rosendo Brown MD Work Phone: [facility] Comment on above: TIA (transient ische judie attack) (Primary Dx); Chronic diastolic (congestive) heart failure (HCC); Mitral valve prolapse; Nonrheumatic mitral (valve) insufficiency; Celiac disease; Paroxysmal atrial fibrillation (HCC) Start: 04-05-2023 Telephone encounter Rosendo Brown MD Work Phone: [facility] Comment on above: Results Start: 04-05-2023 End: 04-05-[address] Rosendo Brown Work Phone: [facility] Work Phone: Start: 04-05-2023 End: 04-05-[address] Roesndo Brown Work Phone: [facility]-Outpatient Breast Imaging Work Phone: Start: 03-30-2023 Telephone encounter Rosendo Martinez MD Work Phone: Sleep Comment on above: Results Start: 03-29-2023 Telephone encounter Rosendo Brown MD Work Phone: [facility] Comment on above: Orders (Mammogram) Start: 03-24-2023 End: 03-24-2023 Admission to same day surgery center Dr. Rosendo Brown Work Phone: [facility]-Surgical Day Care Start: 03-24-2023 End: 03-24-[address] Rosendo Brown Work Phone: [facility] Work Phone: Start: 03-18-2023 Chart abstracting [facility] Work Phone: Neurology Start: 03-10-2023 Telephone encounter Rosendo Martinez MD Work Phone: [facility] Comment on above: Patient Update Future Appointment ( [place], [place], Any) Start: 03-07-2023 Telephone encounter Joshua JEWELL Work Phone: [facility] Comment on above: Results Start: 03-04-2023 Telephone encounter Brock Reynoso MD Work Phone: [facility] Comment on above: Patient Question Start: 03-04-2023 End: 03-04-2023 Patient encounter procedure Brock Avelar MD Work Phone: [facility] Comment on above: Urinary frequency (P rimary Dx) Start: 02-28-2023 Telephone encounter Rosendo Martinez MD Work Phone: Neurology Comment on above: Shade Classifier - O ther Start: 02-28-2023 End: 02-28-[address] Rosendo Brown Work Phone: [facility] Work Phone: Start: 02-28-2023 End: 02-28-[address] Rosendo Brown Work Phone: [facility] Start: 02-25-2023 End: 02-25-2023 Patient encounter [...] / Non-visit Dr. Melvin Brown Work Phone: [facility] Start: 02-18-2023 Non-patient / Non-visit Dr. Melvin Brown Work Phone: [facility] Start: 02-18-2023 End: 02-18-[address] Rosendo Brown Work Phone: [facility] Work Phone: Start: 02-18-2023 End: 02-18-[address] [facility] Start: 02-15-2023 Telephone encounter Rosendo Brown MD Work Phone: [facility] Comment on above: Patient Question Start: 02-15-2023 End: 02-15-[address] Rosendo Brown Work Phone: [facility] Start: 02-13-2023 ambulatory Melania jackman RN NURSE NEIGHBORHOOD CONSERVATION OFFICER Comment on above: Difficulty Urinating Start: 02-13-2023 End: 02-13-2023 Patient encounter procedure Carina Parker APRN.CNP Work Phone: [facility] Comment on above: Dysuria (Primary Dx) Start: 01-26-[address] Kristine [facility] Start: 01-25-2023 End: 01-25-2023 Office outpatient visit 25 minutes Mary Alejandro APRN.STUDY ABROAD COORDINATOR Work Phone: [facility] [place] Comment on above: TIA (transient ische judie attack) (Primary Dx) Start: 01-21-2023 Non-patient / Non-visit Dr. Melvin Brown Work Phone: [facility] Start: 01-21-2023 Non-patient / Non-visit Dr. Melvin Brown Work Phone: [facility] Start: 01-20-2023 Telephone encounter Mehnaz peterson APRN.STUDY ABROAD COORDINATOR Work Phone: OB/Gynecology Comment on above: Patient Update Start: 01-20-2023 Non-patient / Non-visit Dr. Melvin Brown Work Phone: [facility] Start: 01-20-2023 End: 01-21-2023 Evaluation and management of inpatient Dr. Rosendo Brown Work Phone: [facility]-Progressive Care Unit Start: 01-20-[address] Jay Brown Work Phone: [facility] Work Phone: Start: 01-19-2023 End: 01-19-2023 Patient encounter procedure Mehnaz Eduardo APRN.STUDY ABROAD COORDINATOR Work Phone: OB/Gynecology Comment on above: Vaginal burning (Lachelle alise Dx); Cystocele, midline; Postmenopausal atrophic vaginitis; Recurrent UTI Start: 01-18-2023 E-mail encounter fro m caregiver Sherie Sweet APRN.STUDY ABROAD COORDINATOR Work Phone: [facility] Start: 01-18-2023 Patient encounter procedure Sherie Sweet APRN.STUDY ABROAD COORDINATOR Work Phone: OB/Gynecology Comment on above: 01/24/23 appointment Start: 01-03-2023 Telephone encounter Gabbi hernandez PA-C Work Phone: [facility] Comment on above: Results Start: 01-02-2023 End: 01-02-2023 Patient encounter procedure Cara Nava APRN.STUDY ABROAD COORDINATOR Work Phone: [facility] Comment on above: Burning with urinati on (Primary Dx) Start: 11-03-2022 Telephone encounter Rosendo Brown MD Work Phone: [facility] Comment on above: Results Start: 11-01-2022 End: 11-01-2022 Patient encounter procedure Rosendo Brown MD Work Phone: [facility] Comment on above: Microscopic hematuri a (Primary Dx); Chronic diastolic (congestive) heart failure (HCC); Nonrheumatic mitral (valve) insufficiency; Venous angioma of brain (HCC); Osteopenia of multiple sites; Celiac disease; Mixed hyperlipidemia; Dysuria Start: 10-16-2022 End: 10-16-2022 Patient encounter procedure Diane Dawn APRN.STUDY ABROAD COORDINATOR Work Phone: [facility] Comment on above: Urinary frequency (P rimary Dx); Recurrent UTI (urinary tract infection) Start: 06-14-2022 End: 06-14-2022 Subsequent hospital visit by physician [facility] D[facility] Work Phone: Radiology Comment on above: Post-menopausal [Z78 .0] Start: 05-27-2022 Telephone encounter Rosendo Brown MD Work Phone: [facility] Comment on above: Patient Question Start: 04-27-2022 End: 04-27-2022 Subsequent hospital visit by physician Xr [facility] Work Phone: Radiology Comment on above: Foot pain, left [M79 .672] Start: 04-27-2022 End: 04-27-2022 Patient encounter procedure Rosendo Brown MD Work Phone: [facility] Comment on above: Celiac disease (Prim alejandra Dx); Special screening examination for viral disease; Chronic diastolic (congestive) heart failure (HCC); Mitral valve prolapse; Anxiety; Ventricular arrhythmia; Fibromyalgia; Mixed hyperlipidemia; Gastritis without bleeding, unspecified chronicity, unspecified gastritis type; Adjustment reaction with anxiety and depression; Foot pain, left Start: 04-15-2022 Non-patient / Non-visit Dr. Melvin Brown Work Phone: [facility] Start: 04-15-2022 End: 04-15-[address] Rosendo Brown Work Phone: [facility]-Cardiovascular Services Start: 04-06-2022 ambulatory Melania Walton [facility] Start: 04-05-2022 End: 04-05-[address] Rosendo Brown Work Phone: [facility] Start: 03-29-2022 ambulatory Rosendo Brown MD Work Phone: [facility] [place] Comment on above: mammogram Start: 03-29-2022 E-mail encounter fro m caregiver Rosendo Brown MD Work Phone: [facility] Start: 03-29-2022 End: 03-29-[address] Rosendo Brown Work Phone: [facility]-Outpatient Breast Imaging Start: 03-10-2022 End: 03-10-[address] Rosendo Brown Work Phone: [facility] Gastroenterology Start: 02-24-2022 Non-patient / Non-visit Dr. Melvin Brown Work Phone: [facility] Start: 02-24-2022 End: 02-24-2022 Admission to same day surgery center Dr. Rosendo Brown Work Phone: [facility]-Endoscopy Start: 02-22-2022 ambulatory Emmanuelle Subramanian MA [facility] Comment on above: Population Health Na vigation Outreach ([employer] care [employer]) Start: 02-10-2022 Telephone encounter Carina miller COUNTER TENDER.RED Work Phone: [facility] Comment on above: Results Start: 02-10-2022 End: 02-10-2022 Subsequent hospital visit by physician [place] [facility] Work Phone: Radiology Comment on above: Anterior leg pain, l eft [M79.605] Start: 02-08-2022 End: 02-08-2022 Patient encounter procedure Brock Avelar MD Work Phone: [facility] Comment on above: Anterior leg pain, l eft (Primary Dx) Start: 12-02-2021 End: 12-02-[address] Rosendo Brown Work Phone: [facility]-Laboratory Start: 12-02-2021 End: 12-02-[address] Rosendo Brown Work Phone: [facility] Gastroenterology Start: 12-20-2017 End: 12-20-2017 Ambulatory [facility] Facility:[facility] Start: 09-22-2017 End: 09-22-2017 [facility] Facility:[facility] Procedures Date Procedure Procedure Detail Performing [...] Work Phone: Comment on above: Performed at: [address] [id number] Director: Addison Maradiaga PhD, Phone: [phone] Start: 01-18-[address]25 Serum inorganic phosphate measurement Dr. [...] shoulder complete minimum 2 views Mary Alejandro COUNTER TENDER.STUDY ABROAD COORDINATOR Work Phone: Start: 04-05-[address] [...] stick/tablet rgnt auto w/o microscopy Carina Parker COUNTER TENDER.STUDY ABROAD COORDINATOR Work Phone: Start: 01-20-[address] Rosendo Brown Work Phone: Start: 01-20-2023 CT angiography of head and neck Dr. Jay Brown Work Phone: Start: 01-20-2023 MRI of brain without contrast Dr. Kristine Brown Work Phone: Start: 01-20-2023 CT of head without contrast Dr. Rosendo Brown Work Phone: Start: 01-02-2023 Urnls dip stick/tablet rgnt auto w/o microscopy Carina Parker COUNTER TENDER.STUDY ABROAD COORDINATOR Work Phone: Start: 11-01-2022 Urnls dip stick/tablet rgnt auto w/o microscopy Rosendo Brown MD Work Phone: Start: 10-16-2022 Urnls dip stick/tablet rgnt auto w/o microscopy Diane Dawn COUNTER TENDER.STUDY ABROAD COORDINATOR Work Phone: Start: 06-14-2022 Dxa bone density [...] Activity Detail Author Start: 11-06-[address] [facility] Start: 11-06-2028 COLORECTAL CANCER SCREENING COLORECTAL CANCER SCREENING [facility] Start: 01-26-2028 Diabetes Screening Diabetes Screenin g [facility] Start: 01-12-2028 Diabetes Screening Diabetes Screenin g [facility] Start: 11-01-2027 L[address] S[address]EN LIPID SCREEN [facility] Start: 10-02-2027 Diabetes Screening Diabetes Screenin g [facility] Start: 04-27-2027 [address]EN LIPID SCREEN [facility] Start: 04-28-2026 Diabetes Screening Diabetes Screenin g [facility] Start: 02-25-2026 Annual PCP Team Chronic Care Nurse lópez Disease Visit Annual PCP Team Chronic Disease Visit [facility] Start: 01-25-2026 Annual PCP Team Chronic Care Nurse lópez Disease Visit Annual PCP Team Chronic Disease Visit [facility] Start: 01-11-2026 Annual PCP Team Chronic Care Nurse lópez Disease Visit Annual PCP Team Chronic Disease Visit [facility] Start: 01-03-2026 LIPID SCREEN LIPID SCREEN [facility] Start: 10-02-2025 Annual PCP Team Chronic Care Nurse lópez Disease Visit Annual PCP Team Chronic Disease Visit [facility] Start: 10-02-2025 Covid-19 Vaccine ( season) Covid-19 Vaccine () [facility] Comment on above: Postponed from 07/11 (Declined at this time) Start: 05-13-2025 Influenza vaccination Influenza Vacc ine (#1) [facility] Start: 04-27-2025 DIABETES SCREEN DI[facility]CREEN [facility] Start: 04-25-2025 End: 04-25-2025 Admission to same day surgery center 04/25/2025 11:45 AM EDT - 04/25/2025 4:59 PM EDT Surgery Admitting [address] [place] [address] Harmony Callahan MD [address] [place] [address] MVr/MAZE Sternotomy (2) Admitting Comment on above: MVr/MAZE Sternotomy (2) Start: 04-25-2025 Subsequent hospital visit by physician 04/25/2025 11:45 AM EDT Hospital Encounter Admitting [address] [place] [address] [place] [address] [place] [address] Pre-operative cardiovascular examination [Z01.810], Atrial fibrillation, unspecified [...] 4:00 PM EDT Office Visit Geriatrics [address] [facility] [place] [address] Taylor Thompson MD [address] [facility] [place], [place] [address] MRI Follow up Geriatrics Comment on above: MRI Follow up Start: 04-18-2025 End: 04-18-2025 Patient encounter procedure 04/18/2025 11:30 AM EDT Office Visit Geriatrics [address] [facility] [place] [address] Taylor Thompson MD [address] [facility] [place] [address] MRI Follow up Geriatrics Comment on above: MRI Follow up Start: 04-17-2025 End: 04-17-2025 Patient encounter procedure [facility] Comment on above: Medicare Wellness MRI Follow up Start: 04-04-2025 Annual PCP Team Chronic Care Nurse lópez Disease Visit Annual PCP Team Chronic Disease Visit [facility] Start: 04-01-2025 End: 07-01-2025 aPTT in Platelet poor plasma by Coagulation assay ACTIVATED PARTIAL THROMBOPLASTIN TIME Lab Routine Pre-operative cardiovascular examination Atrial fibrillation, unspecified type (HCC) Mitral valve disorder Expected: 04/01/2025 (Approximate), Expires: 07/01/2025 [facility] Comment on above: Expected: 04/01/2025 (Approximate), Expires: 07/01/2025 Start: 04-01-2025 End: 07-01-2025 CBC W Auto Differential panel - Blood COMPLETE BLOOD COUNT AND DIFFERENTIAL Lab Routine Pre-operative cardiovascular examination Atrial fibrillation, unspecified type (HCC) Mitral valve disorder Expected: 04/01/2025, Expires: 07/01/2025 [facility] Comment on above: Expected: 04/01/2025 , Expires: 07/01/2025 Start: 04-01-2025 End: 07-01-2025 Comprehensive metabolic 2000 panel - Serum or Plasma COMPREHENSIVE METABOLIC PANEL Lab Routine Pre-operative cardiovascular examination Atrial fibrillation, unspecified type (HCC) Mitral valve disorder Expected: 04/01/2025, Expires: 07/01/2025 [facility] Comment on above: Expected: 04/01/2025 , Expires: 07/01/2025 Start: 04-01-2025 End: 07-01-2025 CONFIRM BLOOD TYPE CONFIRM BLOOD TYPE Blood Bank Routine Pre-operative cardiovascular examination Atrial fibrillation, unspecified type (HCC) Mitral valve disorder Expected: 04/01/2025, Expires: 07/01/2025 [facility] Comment on above: Expected: 04/01/2025 , Expires: 07/01/2025 Start: 04-01-2025 End: 07-01-2025 Lactate dehydrogenase [Enzymatic activity/volume] in Serum or Plasma LACTATE DEHYDROGENASE Lab Routine Pre-operative cardiovascular examination Atrial fibrillation, unspecified type (HCC) Mitral valve disorder Expected: 04/01/2025, Expires: 07/01/2025 [facility] Comment on above: Expected: 04/01/2025 , Expires: 07/01/2025 Start: 04-01-2025 End: 07-01-2025 Lipoprotein a [Mass/volume] in Serum or Plasma LIPOPROTEIN (A) Lab Routine Pre-operative cardiovascular examination Atrial fibrillation, unspecified type (HCC) Mitral valve disorder Expected: 04/01/2025, Expires: 07/01/2025 [facility] Work Phone: Comment on above: Expected: 04/01/2025 , Expires: 07/01/2025 Start: 04-01-2025 End: 07-01-2025 PT panel - Platelet poor plasma by Coagulation assay PROTHROMBIN TIME Lab Routine Pre-operative cardiovascular examination Atrial fibrillation, unspecified type (HCC) Mitral valve disorder Expected: 04/01/2025 (Approximate), Expires: 07/01/2025 [facility] Comment on above: Expected: 04/01/2025 (Approximate), Expires: 07/01/2025 Start: 04-01-2025 End: 07-01-2025 STAPHYLOCOCCUS AUREUS & MRSA SCREEN, PCR, NASAL STAPHYLOCOCCUS AUREUS & MRSA SCREEN, PCR, NASAL Lab Routine Pre-operative cardiovascular examination Atrial fibrillation, unspecified type (HCC) Mitral valve disorder Expected: 04/01/2025, Expires: 07/01/2025 [facility] Comment on above: Expected: 04/01/2025 , Expires: 07/01/2025 Start: 04-01-2025 End: 07-01-2025 TYPE AND SCREEN,30 DAY TYPE AND SCREEN,30 DAY Blood Bank Routine Pre-operative cardiovascular examination Atrial fibrillation, unspecified type (HCC) Mitral valve disorder Expected: 04/01/2025, Expires: 07/01/2025 [facility] Comment on above: Expected: 04/01/2025 , Expires: 07/01/2025 Start: 04-01-2025 End: 07-01-2025 URINALYSIS, DIPSTICK ONLY URINALYSIS, DIPSTICK ONLY Lab Routine Pre-operative cardiovascular examination Atrial fibrillation, unspecified type (HCC) Mitral valve disorder Expected: 04/01/2025, Expires: 07/01/2025 [facility] Comment on above: Expected: 04/01/2025 , Expires: 07/01/2025 Start: 03-28-2025 End: 03-28-2025 Patient encounter procedure 03/28/2025 12:00 PM EDT Appointment RADIO MRI [facility] [address] [address] Cognitive impairment, mild, so stated [G31.84] [facility] Comment on above: Cognitive impairment , mild, so stated [G31.84] Start: 03-14-2025 Annual PCP Team Chronic Care Nurse lópez Disease Visit Annual PCP Team Chronic Disease Visit [facility] Start: 03-14-2025 Covid-19 Vaccine ( season) Covid-19 Vaccine () [facility] Comment on above: Postponed from 10/20 (Declined at this time) Start: 03-13-2025 Patient discharge [facility] Start: 03-04-2025 End: 03-04-2025 Patient encounter procedure 03/04/2025 2:40 PM EDT Office Visit [facility] [address] [place], [place] [id number] Taylor Thompson MD [address] [place], [place] [phone] MRI follow up - 4 week [facility] Comment on above: MRI follow up - 4 we diana Start: 02-25-2025 End: 02-25-2025 Patient encounter procedure 02/25/2025 9:40 AM EDT Office Visit Family [facility] [address] [place], [place] [id number] Rosendo Brown MD [address] [facility] [place], [place] [id number] 4 week f/u [facility] Comment on above: 4 week f/u Start: 02-24-[address] [facility] Start: 02-24-2025 COLORECTAL CANCER SCREENING COLORECTAL CANCER SCREENING [facility] Start: 02-24-2025 End: 02-24-2025 Patient encounter procedure 02/24/2025 10:30 AM EDT Appointment [facility] [address] [place] [address] Dx: Cognitive impairment, mild, so stated [G31.84] [facility] Comment on above: Dx: Cognitive impair ment, mild, so stated [G31.84] Start: 02-12-2025 Evaluation of diagno stic study results [facility] Start: 01-28-2025 Evaluation of diagno stic study results [facility] Start: 01-25-2025 End: 04-26-2025 Basic metabolic 2000 panel - Serum or Plasma [facility] Work Phone: Comment on above: Expected: 01/25/2025 , Expires: 04/26/2025 Start: 01-25-2025 End: 01-25-2025 Patient encounter procedure 01/25/2025 8:00 AM EDT Office Visit [facility] [address] [facility] [place], [place] [address] Rosendo Brown MD [address] [facility] [place], [place] [phone] TCM. [facility] discharged on 01/19/25. Dx: Afib w/RVR Family [facility] Comment on above: TCM. [facility] discharged on 01/19/25. Dx: Afib w/RVR Start: 01-19-2025 Patient discharge [facility] Start: 01-17-2025 Following clinical pathway protocol [facility] Start: 01-17-2025 Application of elast ic bandage [facility] Start: 01-17-2025 Assessment of risk o f venous thromboembolism [facility] Start: 01-17-2025 Elevation of affecte d extremity [facility] Start: 01-17-2025 Incentive spirometry [facility] Start: 01-17-2025 Insertion of cathete r into peripheral vein [facility] Start: 01-17-2025 Measuring intake and output [facility] Start: 01-17-2025 Notification of physician [facility] Start: 01-17-2025 Oxygen therapy [facility] Start: 01-17-2025 Patient education [facility] Start: 01-17-2025 Providing care accor ding to standard [facility] Start: 01-17-2025 Provision of activit y privileges [facility] Start: 01-17-2025 Referral to service [facility] Start: 01-17-2025 Respiratory therapy [facility] Start: 01-17-2025 [facility] Start: 01-17-2025 Hospital admission, emergency, from emergency room, medical nature [facility] Start: 01-17-2025 Verification routine [facility] Start: 01-17-2025 Admission procedure [facility] Start: 01-17-2025 End: 01-17-2025 [facility] Start: 01-17-2025 [facility] Start: 01-16-2025 Evaluation of diagno stic study results [facility] Start: 01-14-2025 End: 01-14-2026 CBC W Auto Differential panel - Blood COMPLETE BLOOD COUNT AND DIFFERENTIAL Lab Routine Anemia, unspecified type Expected: 01/14/2025, Expires: 01/14/2026 [facility] Work Phone: Comment on above: Expected: 01/14/2025 , Expires: 01/14/2026 Start: 01-14-2025 End: 01-14-2026 Cobalamin (Vitamin B12) [Mass/volume] in Serum or Plasma VITAMIN B12 Lab Routine Anemia, unspecified type Expected: 01/14/2025, Expires: 01/14/2026 [facility] Comment on above: Expected: 01/14/2025 , Expires: 01/14/2026 Start: 01-14-2025 End: 01-14-2026 Ferritin [Mass/volume] in Serum or Plasma FERRITIN Lab Routine Anemia, unspecified type Expected: 01/14/2025, Expires: 01/14/2026 [facility] Comment on above: Expected: 01/14/2025 , Expires: 01/14/2026 Start: 01-14-2025 End: 01-14-2026 Folate [Mass/volume] in Serum or Plasma FOLATE, SERUM Lab Routine Anemia, unspecified type Expected: 01/14/2025, Expires: 01/14/2026 [facility] Comment on above: Expected: 01/14/2025 , Expires: 01/14/2026 Start: 01-14-2025 End: 01-14-2026 Hemoglobin.gastrointestin al.lower [Presence] in Stool by Immunoassay IMMUNOCHEMICAL FECAL OCCULT BLOOD TEST Lab Routine Anemia, unspecified type Expected: 01/14/2025, Expires: 01/14/2026 [facility] Comment on above: Expected: 01/14/2025 , Expires: 01/14/2026 Start: 01-14-2025 End: 01-14-2026 Iron and Iron binding capacity panel - Serum or Plasma IRON AND TIBC Lab Routine Anemia, unspecified type Expected: 01/14/2025, Expires: 01/14/2026 [facility] Comment on above: Expected: 01/14/2025 , Expires: 01/14/2026 Start: 01-12-2025 Annual PCP Team Chronic Care Nurse lópez Disease Visit Annual PCP Team Chronic Disease Visit [facility] Start: 01-11-2025 End: 04-12-2025 Basic metabolic 2000 panel - Serum or Plasma [facility] Comment on above: Expected: 01/11/2025 , Expires: 04/12/2025 Start: 01-11-2025 End: 04-12-2025 CBC W Auto Differential panel - Blood [facility] Comment on above: Expected: 01/11/2025 , Expires: 04/12/2025 Start: 01-11-2025 End: 01-11-2026 Ova and parasites identified in Unspecified specimen by Light microscopy OVA + PARA MICROSCOPIC Microbiology Routine Diarrhea, unspecified type Expected: 01/11/2025, Expires: 01/11/2026 [facility] Work Phone: Comment on above: Expected: 01/11/2025 , Expires: 01/11/2026 Start: 11-29-2024 End: 11-29-2024 Patient encounter procedure 11/29/2024 11:00 AM EDT Office Visit Geriatrics [address] [place], [place] [phone] Taylor Thompson MD [address] [place], [place] [phone] follow up, mri 11/22 Geriatrics Comment on above: follow up, mri 11/22 Start: 11-22-2024 End: 11-22-2024 Patient encounter procedure 11/22/2024 6:20 AM EDT Appointment [facility] MRI [facility] [address] [place] [address] Cognitive impairment, mild, so stated [G31.84] [facility] Comment on above: Cognitive impairment , mild, so stated [G31.84] Start: 10-31-2024 Annual PCP Team Chronic Care Nurse lópez Disease Visit Annual PCP Team Chronic Disease Visit [facility] Start: 10-31-2024 RSV Vaccine (1 - 1-d ose 60+ series) RSV Vaccine (1 - 1-dose 60+ series) [facility] Comment on above: Postponed from 12/15 (Declined at this time) Start: 10-31-2024 RSV Vaccine (1 - 1-d ose 75+ series) RSV Vaccine (1 - 1-dose 75+ series) [facility] Comment on above: Postponed from 12/15 (Declined at this time) Start: 10-24-2024 End: 10-24-2024 Patient encounter procedure 10/24/2024 3:30 PM EST Office Visit Geriatrics [address] [place], [place] [phone] Taylor Thompson MD [address] [place], [place] [phone] Memory impairment [R41.3] Geriatrics Comment on above: Memory impairment [R 41.3] Start: 10-10-2024 Annual PCP Team Chronic Care Nurse lópez Disease Visit Annual PCP Team Chronic Disease Visit [facility] Start: 10-02-2024 End: 01-01-2025 Cobalamin (Vitamin B12) [Mass/volume] in Serum or Plasma [facility] Comment on above: Expected: 10/02/2024 , Expires: 01/01/2025 Start: 10-02-2024 End: 01-01-2025 Comprehensive metabolic 2000 panel - Serum or Plasma [facility] Comment on above: Expected: 10/02/2024 , Expires: 01/01/2025 Start: 10-02-2024 End: 01-01-2025 Folate [Mass/volume] in Serum or Plasma [facility] Comment on above: Expected: 10/02/2024 , Expires: 01/01/2025 Start: 10-02-2024 End: 01-01-2025 Hemoglobin A1c in Blood [facility] Work Phone: Comment on above: Expected: 10/02/2024 , Expires: 01/01/2025 Start: 10-02-2024 End: 01-01-2025 Lipid 1996 panel - Serum or Plasma [facility] Comment on above: Expected: 10/02/2024 , Expires: 01/01/2025 Start: 10-02-2024 End: 01-01-2025 Thyrotropin [Units/volume] in Serum or Plasma [facility] Comment on above: Expected: 10/02/2024 , Expires: 01/01/2025 Start: 10-02-2024 End: 10-02-2024 Patient encounter procedure 10/02/2024 11:20 AM EST Office Visit Family [facility] [address] [place] [address] Rosendo Brown MD [address] [place] [address] 6 month follow up Family [facility] Comment on above: 6 month follow up Start: 09-17-2024 End: 09-17-2024 Patient encounter procedure 09/17/2024 1:40 PM EST Office Visit [facility] [address] [place] [address] Rosendo Brown MD [address] [place] [address] 6 month follow up [facility] Comment on above: 6 month follow up Start: 09-12-2024 Advance Directive Discussion Advance Directive Discussion [facility] Start: 09-12-2024 Medicare Advantage A nnual Wellness Visit Medicare Advantage Annual Wellness Visit [facility] Start: 07-11-2024 Covid-19 Vaccine () Covid-19 Vaccine () [facility] Start: 07-11-2024 Covid-19 Vaccine () Covid-19 Vaccine () [facility] Start: 05-13-2024 Influenza vaccination Influenza Vacc ine (#1) [facility] Start: 05-07-2024 End: 05-07-2024 Patient encounter procedure 05/07/2024 1:40 PM EDT Office Visit [facility] [address] [place] [address] Rosendo Brown MD [address] [facility] [place] [address] 6 month follow up [facility] Comment on above: 6 month follow up Start: 04-30-2024 End: 07-30-2024 CBC W Auto Differential panel - Blood CBC + DIFF Lab Routine Paroxysmal atrial fibrillation (HCC) Expected: 04/30/2024, Expires: 07/30/2024 [facility] Work Phone: Comment on above: Expected: 04/30/2024 , Expires: 07/30/2024 Start: 04-30-2024 End: 07-30-2024 Comprehensive metabolic 2000 panel - Serum or Plasma COMP METABOLIC PANEL Lab Routine Paroxysmal atrial fibrillation (HCC) Expected: 04/30/2024, Expires: 07/30/2024 [facility] Work Phone: Comment on above: Expected: 04/30/2024 , Expires: 07/30/2024 Start: 04-30-2024 End: 07-30-2024 Lipid 1996 panel - Serum or Plasma LIPID PANEL BASIC Lab Routine Elevated LDL cholesterol level Expected: 04/30/2024, Expires: 07/30/2024 [facility] Work Phone: Comment on above: Expected: 04/30/2024 , Expires: 07/30/2024 Start: 04-27-2024 ANNUAL PCP TEAM RECHECKER LÓPEZ DISEASE VISIT ANNUAL PCP TEAM CHRONIC DISEASE VISIT [facility] Start: 04-27-2024 COVID-19 VACCINE (6 - Moderna series) COVID-19 VACCINE (6 - Moderna series) [facility] Comment on above: Postponed from 09/27 (Declined at this time) Start: 04-11-2024 End: 04-11-2024 Patient encounter procedure 04/11/2024 3:30 PM EDT Office Visit Neurology [address] [place], [place] [id number] Velvet Patel PA-C [address] [place], [place] [phone] 6m f/u Neurology Comment on above: 6m f/u Start: 03-14-2024 End: 03-14-2024 Patient encounter procedure 03/14/2024 2:00 PM EDT Office Visit Family [facility] [address] [place], [place] [phone] Rosendo Brown MD [address] [place] [address] 1 month anxiety f/u [facility] Comment on above: 1 month anxiety f/u Start: 02-27-2024 End: 02-27-2024 Patient encounter procedure 02/27/2024 2:30 PM EDT Office Visit Neurology [address] [place], [place] [address] Soumya Ramirez APRN.STUDY ABROAD COORDINATOR [address] [place] [address] SARAH (obstructive sleep apnea) [G47.33] Neurology Comment on above: SARAH (obstructive sle ep apnea) [G47.33] Start: 02-10-2024 End: 02-10-2024 Patient encounter procedure 02/10/2024 10:40 AM EDT Office Visit [facility] [address] [place] [address] Angelica Ivan APRN.FLEECE TIER [address] [place], [place] [address] 4 week follow up start sertraline [facility] Comment on above: 4 week follow up sta rt sertraline Start: 01-26-2024 ANNUAL PCP TEAM RECHECKER LÓPEZ DISEASE VISIT ANNUAL PCP TEAM CHRONIC DISEASE VISIT [facility] Start: 01-04-2024 DIABETES SCREEN [facility] Start: 11-18-2023 [facility] Start: 11-01-2023 ANNUAL PCP TEAM RECHECKER LÓPEZ DISEASE VISIT ANNUAL PCP TEAM CHRONIC DISEASE VISIT [facility] Start: 10-20-2023 Covid-19 Vaccine ( season) Covid-19 Vaccine ( season) [facility] Start: 09-12-2023 Advance Directive Discussion Advance Directive Discussion [facility] Start: 05-13-2023 Covid-19 Vaccine ( season) Covid-19 Vaccine ( season) [facility] Start: 05-13-2023 Influenza vaccination C [facility] Start: 04-27-2023 ANNUAL PCP TEAM RECHECKER LÓPEZ DISEASE VISIT ANNUAL PCP TEAM CHRONIC DISEASE VISIT [facility] Start: 03-27-2023 End: 01-26-2024 Comprehensive metabolic 2000 panel - Serum or Plasma COMP METABOLIC PANEL Lab Routine TIA (transient ischemic attack) Expected: 03/27/2023, Expires: 01/26/2024 [facility] Work Phone: Comment on above: Expected: 03/27/2023 , Expires: 01/26/2024 Start: 03-27-2023 End: 01-26-2024 Lipid 1996 panel - Serum or Plasma LIPID PANEL BASIC Lab Routine TIA (transient ischemic attack) Expected: 03/27/2023, Expires: 01/26/2024 [facility] Work Phone: Comment on above: Expected: 03/27/2023 , Expires: 01/26/2024 Start: 03-24-2023 Anes transurethral w/urethrocystoscopy nos ANESTH BLADDER SURGERY [facility] Start: 03-24-2023 Cysto calibration di lat urtl strix/stenosis CYSTOSCOPY AND TREATMENT [facility] Start: 03-24-2023 Patient discharge [facility] Start: 01-21-2023 Patient discharge [facility] Start: 01-20-2023 Following clinical pathway protocol [facility] Start: 01-20-2023 Ambulation without limitation [facility] Start: 01-20-2023 Assessment of risk o f venous thromboembolism [facility] Start: 01-20-2023 Cardiac monitoring [facility] Start: 01-20-2023 Catheterization of vein [facility] Start: 01-20-2023 Continuous pulse oximetry [facility] Start: 01-20-2023 Elevation of head of bed [facility] Start: 01-20-2023 Exercises [facility] Start: 01-20-[address] anned interventions [facility] Start: 01-20-2023 Incentive spirometry [facility] Start: 01-20-2023 Insertion of cathete r into peripheral vein [facility] Start: 01-20-2023 Measuring intake and output [facility] Start: 01-20-2023 Notification of physician [facility] Start: 01-20-2023 Oxygen therapy [facility] Start: 01-20-2023 Providing care accor ding to standard [facility] Start: 01-20-2023 Referral to occupati onal therapist [facility] Start: 01-20-2023 Referral to service [facility] Start: 01-20-2023 Telepractice consultation [facility] Start: 01-20-2023 Tobacco use cessatio n education [facility] Start: 01-20-2023 [facility] Start: 01-20-2023 MRI of brain without contrast Brain without Contrast [facility] Start: 01-20-2023 Admission procedure [facility] Start: 01-20-2023 [facility] Start: 01-20-2023 Patient referral to dietitian [facility] Start: 01-02-2023 End: 03-04-2023 Bacteria identified in Urine by Culture URINE CULTURE Microbiology Routine Burning with urination Expected: 01/02/2023, Expires: 03/04/2023 [facility] Work Phone: Comment on above: Expected: 01/02/2023 , Expires: 03/04/2023 Start: 11-01-2022 End: 01-01-2023 Lipid 1996 panel - Serum or Plasma [facility] Work Phone: Comment on above: Expected: 11/01/2022 , Expires: 01/01/2023 Start: 09-27-2022 COVID-19 VACCINE (6 - Moderna series) COVID-19 VACCINE (6 - Moderna series) [facility] Start: 09-12-2022 ADVANCE DIRECTIVE DISCUSSION ADVANCE DIRECTIVE DISCUSSION [facility] Start: 05-13-2022 Influenza vaccination INFLUENZA (#1) [facility] Start: 04-27-2022 End: 06-27-2022 CBC W Auto Differential panel - Blood [facility] Work Phone: Comment on above: Expected: 04/27/2022 , Expires: 06/27/2022 Start: 04-27-2022 End: 06-27-2022 Comprehensive metabolic 2000 panel - Serum or Plasma [facility] Work Phone: Comment on above: Expected: 04/27/2022 , Expires: 06/27/2022 Start: 04-27-2022 End: 06-27-2022 Hepatitis C virus Ab [Presence] in Serum [facility] Work Phone: Comment on above: Expected: 04/27/2022 , Expires: 06/27/2022 Start: 04-27-2022 End: 06-27-2022 Lipid 1996 panel - Serum or Plasma [facility] Work Phone: Comment on above: Expected: 04/27/2022 , Expires: 06/27/2022 Start: 02-24-2022 Colonoscopy w/biopsy single/multiple COLONOSCOPY AND BIOPSY [facility] Work Phone: Start: 02-24-2022 Egd removal tumor polyp/other lesion snare tech EGD REMOVE LESION SNARE [facility] Work Phone: Start: 02-24-2022 Egd transoral biopsy single/multiple EGD BIOPSY SINGLE/MULTIPLE [facility] Work Phone: Start: 02-24-2022 Patient discharge [facility] Work Phone: Start: 2021 RSV Vaccine (1 - 1-d ose 75+ series) RSV Vaccine (1 - 1-dose 75+ series) [facility] Start: 11-06-2021 COVID-19 VACCINE (4 - Booster for Moderna series) COVID-19 VACCINE (4 - Booster for Moderna series) [facility] Start: 09-12-2021 ADVANCE DIRECTIVE DISCUSSION ADVANCE DIRECTIVE DISCUSSION [facility] Start: 2006 RSV Vaccine (1 - 1-d ose 60+ series) RSV Vaccine (1 - 1-dose 60+ series) [facility] Start: 1996 SHINGRIX VACCINE (1 of 2) STEEN GRIX VACCINE (1 of 2) [facility] Start: 12-16-1991 COLOGUARD (FIT-DNA) COLOGUARD (FIT-D NA) [facility] Start: 12-16-[address] [facility] Start: 12-16-1991 FECAL OCCULT BLOOD FECAL OCCULT BLOO D [facility] Start: 12-16-1991 SIGMOIDOSCOPY SIGMOIDOSCOPY [facility] Start: 1965 Urine microalbumin profile DTAP,TDAP,TD (1 - Tdap) [facility] Start: 1964 HEPATITIS C SCREENING HEPATITIS C [facility] Bacteria identified in Urine by Culture URINE CULTURE Microbiology Routine Urinary frequency Ordered: 10/16/2022 [facility] Work Phone: Comment on above: Ordered: 10/16/2022 Bacteria identified in Urine by Culture URINE CULTURE Microbiology Routine Microscopic hematuria 11/01/2022 10:27 AM EST [facility] Work Phone: Bacteria identified in Urine by Culture Urine Culture [facility] Bacteria identified in Urine by Culture URINE CULTURE Microbiology Routine Dysuria Ordered: 02/13/2023 [facility] Work Phone: Comment on above: Ordered: 02/13/2023 Bacteria identified in Urine by Culture URINE CULTURE Microbiology Routine Urinary frequency 03/04/2023 2:25 PM EDT [facility] Work Phone: Beef IgE Ab [Units/volume] in Serum [facility] Cardioversion [facility] Chocolate IgE Ab [Units/volume] in Serum [facility] Clostridioides diffi cile toxin genes [Presence] in Stool by RADHA with probe detection CLOSTRIDIUM DIFFICILE TOXIN BY PCR Lab Routine Diarrhea, unspecified type Ordered: 01/11/2025 [facility] Comment on above: Ordered: 01/11/2025 Codfish IgE Ab [Units/volume] in Serum [facility] [place] IgE Ab [Units/volume] in Serum [facility] COVID & INFLUENZA A/ B & RSV NAAT, ROUTINE COVID & INFLUENZA A/B & RSV NAAT, ROUTINE Microbiology Routine Cough, unspecified type 04/04/2024 10:23 AM EDT [facility] Work Phone: Cow milk IgE Ab [Units/volume] in Serum [facility] End: 05-30-2025 DBT Breast - bilateral screening TIFFANIE SCREENING W ADITYA Radiology Routine Visit for screening mammogram 1 Occurrences starting 04/30/2024 until 05/30/2025 [facility] Work Phone: Comment on above: 1 Occurrences starti ng 04/30/2024 until 05/30/2025 End: 03-10-2023 Dup-scan xtr veins unilateral/limited study US DVT LOWER LT Radiology STAT Anterior leg pain, left 1 Occurrences starting 02/08/2022 until 03/10/2023 [facility] Work Phone: Comment on above: 1 Occurrences starti ng 02/08/2022 until 03/10/2023 End: 04-01-2026 ECG COMPLETE ECG COMPLETE ECG Routine Pre-operative cardiovascular examination Atrial fibrillation, unspecified type (HCC) Mitral valve disorder 1 Occurrences starting 04/01/2025 until 04/01/2026 [facility] Comment on above: 1 Occurrences starti ng 04/01/2025 until 04/01/2026 End: 04-01-2026 Echocardiography ECHO Cardiology Routine Pre-operative cardiovascular examination Atrial fibrillation, unspecified type (HCC) Mitral valve disorder 1 Occurrences starting 04/01/2025 until 04/01/2026 [facility] Comment on above: 1 Occurrences starti ng 04/01/2025 until 04/01/2026 ENTERIC BACTERIAL PA NAEEM BY PCR ENTERIC BACTERIAL PANEL BY PCR Lab Routine Diarrhea, unspecified type Ordered: 01/11/2025 [facility] Comment on above: Ordered: 01/11/2025 FECAL LACTOFERRIN/LEUKOCYTES FECAL LACTOFERRIN/LEUKOCYTES Lab Routine Diarrhea, unspecified type Ordered: 01/11/2025 [facility] Comment on above: Ordered: 01/11/2025 Giardia lamblia+Cryptosporidium sp Ag [Presence] in Stool by Immunoassay CRYPTOSPORIDIUM AND GIARDIA ANTIGENS BY EIA Microbiology Routine Diarrhea, unspecified type Ordered: 01/11/2025 [facility] Comment on above: Ordered: 01/11/2025 HOME SLEEP APNEA TESHA T (HSAT) HOME SLEEP APNEA TEST (HSAT) Procedures Routine TIA (transient ischemic attack) Sleep apnea-like behavior 1 Occurrences starting 02/25/2023 [facility] Work Phone: Comment on above: 1 Occurrences starti ng 02/25/2023 INTERACTIVE HEART MCKEON RGERY PROGRAM INTERACTIVE HEART SURGERY PROGRAM Procedures Routine Pre-operative cardiovascular examination Atrial fibrillation, unspecified type (HCC) Mitral valve disorder Ordered: 04/01/2025 [facility] Comment on above: Ordered: 04/01/2025 End: 04-27-2024 TIFFANIE SCREENING W ADITYA TIFFANIE SCREENING W ADITYA Radiology Routine Screening mammogram for breast cancer 1 Occurrences starting 03/29/2023 until 04/27/2024 [facility] Work Phone: Comment on above: 1 Occurrences starti ng 03/29/2023 until 04/27/2024 Microscopic observat ion [Identifier] in Vaginal fluid by Gram stain BACT/JULIETTE VAG GRAM STAIN Microbiology Routine Vaginal burning 01/19/2023 11:27 AM EDT [facility] Work Phone: End: 11-23-2025 MR Brain WO contrast MRI BRAIN W QUANT WO IVCON Radiology Routine Cognitive impairment, mild, so stated 1 Occurrences starting 10/24/2024 until 11/23/2025 [facility] Work Phone: Comment on above: 1 Occurrences starti ng 10/24/2024 until 11/23/2025 End: 11-23-2025 MR Unspecified body region 3D post processing MRI 3D BRAIN QUANT Radiology Routine Memory impairment Cognitive impairment, mild, so stated 1 Occurrences starting 10/24/2024 until 11/23/2025 [facility] Comment on above: 1 Occurrences starti ng 10/24/2024 until 11/23/2025 Patient Education TIA Dc [facility] Work Phone: Patient referral [facility] Work Phone: Peanut IgE Ab [Units/volume] in Serum [facility] End: 10-13-2024 Polysomnogram POLYSOMNOGRAM (PSG) Procedures Routine Sleep apnea-like behavior SARAH (obstructive sleep apnea) 1 Occurrences starting 10/14/2023 until 10/13/2024 [facility] Work Phone: Comment on above: 1 Occurrences starti ng 10/14/2023 until 10/13/2024 Polysomnography [facility] Pork IgE Ab [Units/volume] in Serum [facility] [place] IgE Ab [Units/volume] in Serum [facility] Shrimp IgE Ab [Units/volume] in Serum [facility] Soybean IgE Ab [Units/volume] in Serum [facility] Troponin T.cardiac [Mass/volume] in Serum or Plasma by High sensitivity method [facility] Tuna IgE Ab [Units/volume] in Serum [facility] Urinalysis complete panel - Urine URINALYSIS, WITH MICROSCOPIC Lab Routine Microscopic hematuria 11/01/2022 10:27 AM EST [facility] Work Phone: Sprooki [facility] Wheat IgE Ab [Units/volume] in Serum [facility] Whole Egg IgE Ab [Units/volume] in Serum [facility] End: 05-01-2026 XR Chest PA and Lateral XR CHEST 2V FRONTAL/LAT Radiology Routine Pre-operative cardiovascular examination Atrial fibrillation, unspecified type (HCC) Mitral valve disorder 1 Occurrences starting 04/01/2025 until 05/01/2026 [facility] Comment on above: 1 Occurrences starti ng 04/01/2025 until 05/01/2026 End: 05-27-2023 XR FOOT GENERAL 3V AP/LAT/OBL LEFT XR FOOT GENERAL 3V AP/LAT/OBL LEFT Radiology Routine Foot pain, left 1 Occurrences starting 04/27/2022 until 05/27/2023 [facility] Work Phone: Comment on above: 1 Occurrences starti ng 04/27/2022 until 05/27/2023 XR FOOT GENERAL 3V AP/LAT/OBL LEFT XR FOOT GENERAL 3V AP/LAT/OBL LEFT Radiology Routine Foot pain, left 04/27/2022 1:24 PM EDT [facility] Work Phone: [facility] Immunizations Immunization Date Immunization Notes Care Provider [facility] 05-16-2024 COVID-19 original vaccine, booster dose, monovalent (MODERNA) Rosendo Brown MD Work Phone: [facility] 05-16-2024 influenza (HD-IIV4) vaccine, age 65+ yr, high dose, quadrivalent, PF (FLUZONE HIGH-DOSE) Rosendo Brown MD Work Phone: [facility] 05-16-2024 influenza virus vacc ine, unspecified formulation Rosendo Brown MD Work Phone: [facility] 06-19-2023 influenza (aIIV4) vaccine, age 65+ yr, quadrivalent, PF (FLUAD QUAD) Rosendo Brown MD Work Phone: [facility] 06-19-2023 influenza virus vacc ine, unspecified formulation Rosendo Brown MD Work Phone: [facility] 06-21-2022 influenza (HD-IIV4) vaccine, age 65+ yr, high dose, quadrivalent, PF (FLUZONE HIGH-DOSE) Rosnedo Brown MD Work Phone: [facility] 06-21-2022 influenza, high dose seasonal, preservative-free Diane Dawn APRN.CNP Work Phone: [facility] 06-21-2022 influenza virus vacc ine, unspecified formulation Rosendo Brown MD Work Phone: [facility] 06-19-2021 influenza, high-dose , quadrivalent vaccine (FLUZONE HIGH DOSE QUADRIVALENT) Roesndo Brown MD Work Phone: [facility] 06-21-2020 influenza (aIIV4) vaccine, age 65+ yr, quadrivalent, PF (FLUAD QUADRIVALENT) Rosendo Brown MD Work Phone: [facility] 07-02-2019 influenza, high dose seasonal, preservative-free Brock Avelar MD Work Phone: [facility] 07-05-[address] Rosendo Brown Work Phone: [facility] 07-05-2018 influenza, high dose seasonal, preservative-free Brock Avelar MD Work Phone: [facility] 07-05-2018 influenza, seasonal, injectable, preservative free Rosendo Brown MD Work Phone: [facility] 06-28-2017 influenza, high dose seasonal, preservative-free Brock Avelar MD Work Phone: [facility] 06-12-[address] Rosendo Brown Work Phone: [facility] 06-12-2017 influenza, seasonal, injectable, preservative free Rosendo Brown MD Work Phone: [facility] 11-11-2016 pneumococcal conjuga te vaccine, 13 valent Brock Avelar MD Work Phone: [facility] 07-02-2016 influenza, high dose seasonal, preservative-free Brock Avelar MD Work Phone: [facility] 07-08-2015 influenza, high dose seasonal, preservative-free Brock Avelar MD Work Phone: [facility] 05-17-2014 pneumococcal polysaccharide vaccine, 23 valashli Avelar MD Work Phone: [facility] 06-12-2012 pneumococcal polysaccharide vaccine, 23 valashli Avelar MD Work Phone: [facility] 06-12-[address] Shankar Brown Work Phone: [facility] Work Phone: 06-12-2012 pneumococcal vaccine , unspecified formulation Dr. Rosendo Brown Work Phone: [facility] 07-31-2009 novel influenza-H1N1 -09, preservative-free, injectable Brock Avelar MD Work Phone: [facility] Payers Date Payer Category Payer Self-pay [id number] 2023 Medicare (Managed Care) [id number] 2021 Medicare HUMANA MEDICARE HUMANA MEDICARE PPO [id number] 2021-Present [phone] [facility] [id number] [place] [address] PPO [id number] 2021 Medicare [id number] 2013 Medicare [id number] Unknown [id number] [id number] .462 Unknown [id number] 2.16.840.1.598681.3.579.2 .462 Unknown [id number] 2.16.840.1.146823.3.579.2 .462 Unknown [id number] 2.16.840.1.877422.3.579.2 .462 Unknown [id number] 2.16.840.1.909214.3.579.2 .462 Unknown [id number] 2.16.840.1.590830.3.579.2 .462 Unknown [id number] 2.16.840.1.428012.3.579.2 .462 Unknown [id number] 2.16.840.1.735664.3.579.2 .462 Unknown [id number] 2.16.840.1.509202.3.579.2 .462 Unknown [id number] 2.16.840.1.958802.3.579.2 .462 Unknown [id number] 2.16.840.1.366278.3.579.2 .462 Unknown [id number] 2.16.840.1.649711.3.579.2 .462 Unknown [id number] 2.840.1.426438.3.579.2 .462 Unknown [id number] 2.16840.1.285170.3.579.2 .462 Unknown [id number] 2.16.840.1.660696.3.579.2 .462 Unknown [id number] 2.16840.1.264573.3.579.2 .462 Unknown [id number] 2.16840.1.176277.3.579.2 .462 Unknown [id number] 2.16.840.1.987821.3.579.2 .462 Unknown [id number] 2.16.840.1.937294.3.579.2 .462 Unknown [id number] 2.16.840.1.626961.3.579.2 .462 Unknown [id number] 2.16.840.1.914166.3.579.2 .462 Unknown [id number] 2.16.840.1.713449.3.579.2 .462 Unknown [id number] 2.16.840.1.709413.3.579.2 .462 Unknown [id number] 2.16.840.1.192886.3.579.2 .462 Unknown [id number] 2.16.840.1.695617.3.579.2 .462 Unknown [id number] 2.16.840.1.031066.3.579.2 .462 Unknown [id number] 2.16.840.1.353663.3.579.2 .462 Unknown [id number] 2.16.840.1.013962.3.579.2 .462 Unknown [id number] 2.16.840.1.386238.3.579.2 .462 Unknown [id number] 2.16.840.1.860047.3.579.2 .462 Unknown [id number] 2.16.840.1.302548.3.579.2 .462 Unknown [id number] 2.16.840.1.766742.3.579.2 .462 Social History Date Type Detail Facility Start: 11-18-2023 End: 03-13-2025 Tobacco smoking status NEIS Never smoked tobacco [facility] Work Phone: Start: 02-08-2022 End: 02-25-2025 Alcohol intake Current non-drinker of alcohol (finding) [facility] Start: 01-01-2021 End: 11-01-2022 History SDOH Alcohol Frequency 1 [facility] Start: 01-01-2021 History SDOH Alcohol Std Drinks 98 [facility] Start: 01-01-2021 End: 11-01-2022 History SDOH Social Connections Phone 5 [facility] Start: 01-01-2021 End: 11-01-2022 History SDOH Social Connections Membership 2 [facility] Start: 01-01-2021 End: 11-01-2022 History SDOH Social Connections Living 3 [facility] Start: 01-01-2021 End: 04-26-2022 History SDOH Financial 4 [facility] Start: 12-31-[address] [facility] Start: 1945 Sex Assigned At Female C [facility] Start: 02-19-2022 End: 11-18-2023 Tobacco smoking status NHIS Unknown if ever smoked [facility] Start: 07-09-2018 None [facility] Start: 07-09-2018 Spouse/ Signif icant Other [facility] Start: 07-10-2018 Non-smoker [facility] Start: 03-27-2022 End: 04-27-2022 Exposure to SARS-CoV-2 (event) Not sure [facility] Start: 04-26-2022 End: 11-01-2022 History SDOH Alcohol Std Drinks 0 [facility] Start: 10-31-2022 End: 09-17-2024 History of [address] function [facility] Start: 10-31-2022 End: 09-17-2024 Social connection and isolation panel [facility] Do you belong to any clubs or organizations such as synagogue groups, unions, [email or web address] or athletic groups, or school groups? Yes [facility] Are you now , , , , never or living with a partner? [facility] How often to you hav e a drink containing alcohol? Never [facility] How many standard drinks containing alcohol do you have on a typical day? Patient does not drink [facility] Do you feel stress - tense, restless, nervous, or anxious, or unable to sleep at night because your mind is troubled all the time - these days [OSQ] Only a little [facility] (I/We) worried wheth er (my/our) food would run out before (I/we) got money to buy more. Never true [facility] In the past 12 month s, was there a time when you were not able to pay the mortgage or rent on time? No [facility] Start: 03-17-2020 Gender identity Identifies as female gender (finding) [facility] Start: 03-17-2020 Sexual orientation Heterosexual (jerzy brito) [facility] How hard is it for y ou to pay for the very basics like food, housing, medical care, and heating Not very hard [facility] Start: 11-23-2024 Sex [facility]finding[facility] Highlighted row [facility] Medical Equipment Procedure Code Equipment Code [...] FDA Start: 02-07-2018 GENDER JORGE ALL P JAIDNE PATELLA FDA Start: 02-07-2018 PERSONA ART SURF [...] Assessment Result Facility 01-19-2025 Functional status Ambulates [facility] Work Phone: 01-21-2023 Functional status Ambulates;Up ad vianey [facility] Work Phone: 11-21-2014 Are you deaf, or do you have serious difficulty hearing No 11/21/2014 1:53 PM Michael [address]nes No [facility] 11-21-2014 Are you blind, or do you have serious difficulty seeing, even when wearing glasses No 11/21/2014 1:53 PM [address] No [facility] 11-21-2014 Do you have serious difficulty walking or climbing stairs No 11/21/2014 1:53 [address] [facility] 11-21-2014 Do you have difficul ty dressing or bathing No 11/21/2014 1:53 PM Michael Haynes [facility] 11-21-2014 Because of a physica l, mental, or emotional condition, do you have difficulty doing errands alone such as visiting a physician's office or shopping No 11/21/2014 1:53 [address] Vani [facility] Mental Status Date Assessment Result Facility 01-19-2025 Cognitive function Voice/Name [facility] Work Phone: 03-24-2023 Cognitive function Voice/Name [facility] Work Phone: 01-21-2023 Cognitive function Voice/Name [facility] Work Phone: 01-20-2023 Cognitive function Comprehension Ability Demonstrates ability to follow instructions/comprehend [facility] Work Phone: 01-20-2023 Cognitive function Voice/Name [facility] Work Phone: 02-24-2022 Cognitive function Voice/Name [facility] Work Phone: 11-21-2014 Because of a physica l, mental, or emotional condition, do you have serious difficulty concentrating, remembering, or making decisions No 11/21/2014 1:[address] Michael Moore [facility] Clinical Notes 09-15-2018 to 04-01-2025 Telephone [...] Choose correct Type and Screen order No [facility] 04-01-2025 Miscellaneous Notes OPD 8.11, Cath [...] his review/plan of care. Sahara L Medhat [id number] 79 year old Diagnosis: Mod MVP, Mod [...] Marie for MVR. documented in this encounter [facility] 03-28-2025 History of Presen t illness [...] PATIENT PRESENTS WITH AN IMPLANTABLE OR ATTACHED MACHINE WOODWORKING SANDER: No RADIOLOGY DEPARTMENT: MR; Exam(s) Completed: Head: QUANT BRAIN. Aromatherapy Administered: No PERIPHERAL IV DATA: Not applicable SIGNED BY: MAKAYLA Lemon)(MR) March 28, 2025 12:21 PM documented in this encounter [facility] 03-28-2025 Note HNO ID: [id number] Author: MELANIA GARCÍA RT(Summer) Service: Radiology Author [...] PATIENT PRESENTS WITH AN IMPLANTABLE OR ATTACHED MACHINE WOODWORKING SANDER: No RADIOLOGY DEPARTMENT: MR; Exam(s) Completed: Head: QUANT BRAIN. Aromatherapy Administered: No PERIPHERAL IV DATA: Not applicable SIGNED BY: MAKAYLA Lemon)(MR) March 28, 2025 12:[address] [facility] 03-26-2025 Telephone encounter Note Surgeon Review Complete. NPM to contact with recommendations. [facility] 03-22-2025 Telephone encounter Note Chart reviewed March 22, 2025. File given to Dr. Callahan for his review/plan of care. 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 EF%: 60 Thinners: Eliquis Smoking status: Never PMHX: IBS, arthritis, interstitial cystitis, bladder disease, hiatal hernia, GERD, esophagitis, ventricular ectopy, colitis, fibromyalgia, diverticulosis, Anxiety. Note: Leonor Brock RN [facility] 03-22-2025 Telephone encounter Note IN [facility] Work Phone: 03-22-2025 Miscellaneous Notes IN Please register insurance. Thank you documented in this encounter [facility] 03-22-2025 Telephone encounter Note Please register insurance. Thank you [facility] 03-22-2025 Telephone encounter Note [place] PATIENT Records in [employer] Scanned Documents, Echos on Syngo. To NPM [facility] 03-18-2025 Telephone encounter Note Pt reports [...] Gilliam RN March 18, 2025 8:[address] [facility] 03-18-2025 Miscellaneous Notes Pt reports she [...] 2025 8:31 AM documented in this encounter [facility] 03-13-2025 Telephone encounter Note Patient has been referred to Dr. Callahan by Dr. Marie for MVR. [facility] 03-04-2025 Telephone encounter Note The following approved medication requests have been transmitted electronically. Requested Prescriptions Pending Prescriptions Disp Refills atorvastatin (LIPITOR) 40 mg tablet 90 tablet 1 Sig: Take 1 tablet by mouth once daily. Angelica Ivan APRN.CNP [facility] 03-04-2025 Miscellaneous Notes The following approved [...] by mouth once daily. Kasey Guadarrama RN documented in this encounter [facility] 03-04-2025 Telephone encounter Note Patient calls back and notified to request refill of furosemide through cardiology with verbalized understanding. Farideh Cartagena RN [facility] 03-04-2025 Telephone encounter Note Patient calling [...] by mouth once daily. Kasey Guadarrama RN [facility] 02-26-2025 Note HNO ID: [id number] Author: ?, ?, ? Service: ? Author Type: ? Type: Progress Notes Filed: 02/26/2025 11:08 Note Text: Patient is identified through a medication adherence outreach initiative based on pharmacy claims data from: [employer] Medication Adherence Category: Hypertension First Review Attribution Status: Correct attribution Medication(s) Lisinopril 5 mg Medication Status per portal/Epic Reconcile Dispense: Not filled Medication Status per Profile Review: Provider discontinued Is medication on Epic med list? Yes, Escalate to pharmacist for review. Patient/provider appropriate for outreach? No Reason patient/provider not appropriate for outreach:Patient was advised to hold lisinopril by Cardiology per encounter on 01/25/2025 [facility] Pharmacy Team [facility] 02-26-2025 History of Presen t illness Narrative Patient is identified through a medication adherence outreach initiative based on pharmacy claims data from: [employer] Medication Adherence Category: Hypertension First Review Attribution Status: Correct attribution Medication(s) Lisinopril 5 mg Medication Status per portal/Epic Reconcile Dispense: Not filled Medication Status per Profile Review: Provider discontinued Is medication on Epic med list? Yes, Escalate to pharmacist for review. Patient/provider appropriate for outreach? No Reason patient/provider not appropriate for outreach:Patient was advised to hold lisinopril by Cardiology per encounter on 01/25/2025 [facility] Pharmacy Team documented in this encounter [facility] 02-26-2025 Note Patient Outreach (PH POHE) MEDHATSAHARA Addi ([id number]) 1945 F NFR Date Time Provider Department 02/26/25 ROSENDO BROWN During your visit today, we recorded the following information about you: Sabra Husain 02/26/2025 11:08 AM Signed Patient is identified through a medication adherence outreach initiative based on pharmacy claims data from: [employer] Medication Adherence Category: Hypertension First Review Attribution [...] Cardiology per encounter on 01/25/2025 Sabra Husain [facility] Team Allergies As of Date: 02/26/2025 Noted Allergy Reaction BENTYL (DICYCLOMINE HCL) 08/13/2013 1 - Mental Status Change CIPROFLOXACIN 05/24/2014 4 - Hives 14 - Other: See Comments Comments: IV Cipro only Pain at IV site COMPAZINE (PROCHLORPERAZINE EDISY*09/07/2005 5 - Intolerance Comments: [place] like she was coming out of her [...] [I83.90] Arthritis [M19. (more content not included)... [facility] 02-25-2025 Note HNO ID: [id number] Author: ROSENDO BROWN MD Service: ? Author Type: Physician Type: Progress Notes Filed: 02/25/2025 12:51 Note Text: Sahara Meléndez is a 79-year-old female with a history of CHF, atrial fibrillation, and memory issues, presenting for follow-up after a recent hospitalization. HPI CHF and Atrial Fibrillation: - Hospitalized at [facility] from 01/17 to 01/19 for CHF [...] to follow up with Dr. David, her broadcast operations director. Stye: - Previous stye treated with Blef-10 eye drops; reports improvement but still feels a palpable lump on the right upper eyelid. - Plans to follow up with [facility]. MEDICATIONS: Current Outpatient Medications Medication Sig ondansetron [...] Pain at IV site Compazine [Prochlor* Intolerance [place] like she was coming out of her [...] PFRMD 01/11/2006 COLONOSCOPY (more content not included)... [facility] 02-25-2025 History of Presen t illness Narrative Sahara Meléndez is a 79-year-old female with a history of CHF, atrial fibrillation, and memory issues, presenting for follow-up after a recent hospitalization. HPI CHF and Atrial Fibrillation: - Hospitalized at [facility] from 01/17 to 01/19 for CHF [...] to follow up with Dr. David, her broadcast operations director. Stye: - Previous stye treated with Blef-10 eye drops; reports improvement but still feels a palpable lump on the right upper eyelid. - Plans to follow up with [facility]. MEDICATIONS: Current Outpatient Medications Medication Sig ondansetron [...] Pain at IV site Compazine [Prochlor* Intolerance [place] like she was coming out of her [...] warm compresses. - Advised to follow-up with [facility] for further evaluation. 10. Blood in stool (K92.1) - Recent stool test on 01/28 positive for occult blood. - Previous mild anemia improved; hemoglobin 14.3 g/dL, iron 116 mcg/dL, ferritin normal. - Discussed with Dr. David (GI); patient requires cardiac clearance before potential colonoscopy. - Advised against repeat stool test as it would not twisting frame changer. - Follow-up with GI to determine need for further investigation. (See patient after visit summary for additional instructions to patient) oRsendo Brown MD Recording using ambient Dahu software for draft documentation of the visit was discussed with the patient/authorized public health representative; all questions welcomed and answered. Patient/authorized public health representative agreed to proceed documented in this encounter [facility] 02-25-2025 Instructions Rosendo Brown MD - 02/25/2025 10:12 AM EDT - Take metoprolol at the higher dose your pageant director prescribed. - Take furosemide (Lasix) at the lower dose your pageant director prescribed. - Weigh yourself daily; if you [...] eyelid and schedule an ophthalmology appointment at [facility] to assess the remaining stye. documented in this encounter [facility] 02-05-2025 Telephone encounter Note Pt calling [...] would have to be cleared by her pageant director. +IFOBT result, OV note from 01/11/25 and phone encounter from 01/29/25 ready to be faxed to Dr. David's office. Awaiting Dr. Brown to sign gastroenterology referral order. (pended) [facility] 02-05-2025 Miscellaneous Notes Pt calling in [...] would have to be cleared by her pageant director. +IFOBT result, OV note from 01/11/25 and phone encounter from 01/29/25 ready to be faxed to Dr. David's office. Awaiting Dr. Brown to sign gastroenterology referral order. (pended) documented in this encounter [facility] 02-05-2025 Telephone encounter Note Pt calling in to check on Dr. Brown's response. Cancelled both MRI of brain and pt's follow up with Dr. Thompson. Pt states she will reschedule once she has her heart taken care of. [facility] 02-05-2025 Miscellaneous Notes Pt calling in to check on Dr. Borwn's response. Cancelled both MRI of brain and [...] time. Please advise documented in this encounter [facility] 02-05-2025 Telephone encounter Note That is fine. [facility] 02-05-2025 Telephone encounter Note Patient calling asking if she can postpone the MRI Brain (appt mid February) and follow up with Dr Thompson (appt 03/04/2025)? She is having heart issues, afib issues. She said she has to have clip procedure done with her mitral valve, has appt with Antonio Espinosa NP on 02/12/2025 at [facility], to find out when she is scheduled and where. She said she is has to much going on right now, can not handle much more at this time. Please advise [facility] 01-25-2025 Note HNO ID: [id number] Author: ROSENDO BROWN MD Service: ? Author Type: Physician Type: Progress Notes Filed: 01/25/2025 12:18 Note Text: Darek Salazar is a 79 year old female who presents for Hospital F/U History of Present Illness CHF and AFib: - Recent hospitalization at [facility] from 01/17 to 01/19 for CHF [...] later resumed at 50 mg BID by pageant director Dr. San on 01/21. - Lisinopril was held by cardiology as well after med adjustments. - Reports improvement in dyspnea and no chest pain; able to lie down comfortably. - Occasional palpitations, similar to pre-hospitalization. - No significant LE edema, dizziness, or lightheadedness. - Not monitoring daily weights or blood pressure at home. - Follow-up with [facility] scheduled for next week. Memory Issues: - Noted by Sahara's daughter during recent hospitalization. - Referred to a surgical services tech for evaluation; did not complete recommended MRI [...] lbs in 24 hours. - Follow-up with pageant director Dr. Antonio San next week. - Discussed [...] (BMI) of 37.0 to 37.9 in adult ([facility]) (E66.812) - Discussed impact of obesity on [...] fully followed. - (more content not included)... [facility] 01-25-2025 History of Presen t illness Narrative Darek Salazar is a 79 year old female who presents for Hospital F/U History of Present Illness CHF and AFib: - Recent hospitalization at [facility] from 01/17 to 01/19 for CHF [...] later resumed at 50 mg BID by pageant director Dr. San on 01/21. - Lisinopril was held by cardiology as well after med adjustments. - Reports improvement in dyspnea and no chest pain; able to lie down comfortably. - Occasional palpitations, similar to pre-hospitalization. - No significant LE edema, dizziness, or lightheadedness. - Not monitoring daily weights or blood pressure at home. - Follow-up with [facility] scheduled for next week. Memory Issues: - Noted by Sahara's daughter during recent hospitalization. - Referred to a surgical services tech for evaluation; did not complete recommended MRI [...] lbs in 24 hours. - Follow-up with pageant director Dr. Antonio San next week. - Discussed [...] (BMI) of 37.0 to 37.9 in adult ([facility]) (E66.812) - Discussed impact of obesity on [...] - Advised patient to follow up with surgical services tech Dr. Thompson for further assessment. 13. Anemia, [...] 7-10 days. Attestation documented in this encounter [facility] 01-25-2025 Instructions Rosendo Brown MD - [...] your heart condition. documented in this encounter [facility] 01-21-2025 Note HNO ID: [id number] Author: Brunilda GAMBINO RN Service: ? Author Type: Registered Nurse Type: Progress Notes Filed: 01/22/2025 10:32 Note Text: TRANSITION CARE MANAGEMENT (TCM) INITIAL CONTACT Bsa Officer Outreach Provider Action/FYI: Pt would like a 2nd opinion from a pageant director regarding her diagnoses. Initial contact with patient post discharge, spoke to patient. Patient identified by name and . TRANSITION CARE MANAGEMENT INITIAL OUTREACH DOCUMENTATION: No data to display SUMMARY: -Pt discharged from [facility] on 01/19/25. -Admitted for: Afib with [...] medications? If yes, what are those medications? [facility] took pt off of metoprolol. Pt saw Dr. San (cardiology [facility]) yesterday and he wants her [...] Medical records from recent hospitalization: Care Everywhere [facility] 01-21-2025 History of Presen t illness Narrative Images from the original note were not included. TRANSITION CARE MANAGEMENT (TCM) INITIAL CONTACT Bsa Officer Outreach Provider Action/FYI: Pt would like a 2nd opinion from a pageant director regarding her diagnoses. Initial contact with patient post discharge, spoke to patient. Patient identified by name and . TRANSITION CARE MANAGEMENT INITIAL OUTREACH DOCUMENTATION: No data to display SUMMARY: -Pt discharged from [facility] on 01/19/25. -Admitted for: Afib with [...] medications? If yes, what are those medications? [facility] took pt off of metoprolol. Pt saw Dr. San (cardiology [facility]) yesterday and he wants her [...] hospitalization: Care Everywhere documented in this encounter [facility] 01-21-2025 Note Patient Outreach (LEE MPWS) SAHARA MELÉNDEZ ([id number]) 1945 F NFR Date Time Provider Department 01/21/25 ROSENDO BROWN During your visit today, we recorded the following information about you: Brunilda Gambino RN 01/22/2025 10:32 AM Signed TRANSITION CARE MANAGEMENT (TCM) INITIAL CONTACT Bsa Officer Outreach Provider Action/FYI: Pt would like a 2nd opinion from a pageant director regarding her diagnoses. Initial contact with patient post discharge, spoke to patient. Patient identified by name and . TRANSITION CARE MANAGEMENT INITIAL OUTREACH DOCUMENTATION: No data to display SUMMARY: -Pt discharged from [facility] on 01/19/25. -Admitted for: Afib with [...] medications? If yes, what are those medications? [facility] took pt off of metoprolol. Pt saw Dr. San (cardiology [facility]) yesterday and he wants her [...] COMPAZINE (PROCHLORPERAZINE EDISY*09/07/2005 5 - Intolerance Comments: [place] like she was coming out of her [...] [R00.2] 01/14/1998 04/27/20 (more content not included)... [facility] 01-19-2025 Note [facility] Medical Records Department [address] [place] [address] Discharge Summary 01/19/25 1115 MR#: [id number] Acct: [id number] Name: SAHARA MELÉNDEZ Rep #: [id number] : 1945 79 From: Veronica Louise DO PCP: Dr. Rosendo Brown MD Status:DIS IN Location: [place] [address] Providers Date of Admission: 01/17/25 Date of [...] F who presented to the emergency department [facility] on 01/17/2025 with a chief complaint of shortness of breath. She reported been ongoing for about a week and she came in around 5:30 in the morning because it had clinically gotten worse. She was seen in the pageant director office today prior to presentation for this [...] she has nausea (more content not included)... [facility] 01-18-2025 Progress note Note Date/Time January 18, 2025 2:08pm [facility] Medical Records Department [address] [place] [address] Progress Note - Hospitalist 01/18/25 1339 MR#: [id number] Acct: [id number] Name: SAHARA MELÉNDEZ Rep #:[id number] : 1945 79 From: Veronica Louise DO PCP: Dr. Rosendo Brown MD Status:ADM I N Location: [place] [address]- Reason for Visit Reason for Visit: Shortness [...] (Auto) 67.9, Lymph % (Auto) 17.9 L, [place] % (Auto) 10.7 H, Eos % (Auto) [...] on admission Charges/Coding Visit Charges Inpatient E&M: 26129 Subs Hosp L2 01/18/25 1408 <Electronically signed by Veronica Louise DO> Cosigner Signature (if applicable): CC: ~ Signed [facility] Work Phone: 1(657) 755-935205-09-2025 Progress note Author Liat Hale [facility] Note Date/Time January 18, 2025 12:40p m [facility] Medical Records Department [address] [place] [address] Progress Note - Cardiology 01/18/25 1235 MR#: [id number] Acct: [id number] Name: SAHARA MELÉNDEZ Rep #:[id number] : 1945 79 From: Liat Hale MD PCP: Dr. Rosendo Brown MD Status:ADM I N Location: [place] [address] Subjective Subjective Denies any complaints today. Objective [...] (Auto) 67.9, Lymph % (Auto) 17.9 L, [place] % (Auto) 10.7 H, Eos % (Auto) [...] (Auto) 67.9, Lymph % (Auto) 17.9 L, [place] % (Auto) 10.7 H, Eos % (Auto) [...] semi solid phase gastric emptying. Reading Location: [place] [address] Physical Exam Narrative Comfortable. No apparent distress. [...] Cosigner Signature (if applicable): CC: ~ Signed [facility] Work Phone: 1(953) 741-417605-09-2025 Progress note [facility] Medical Records Department [address] [place] [address] Progress Note - Hospitalist 01/18/25 1339 MR#: [id number] Acct: [id number] Name: SAHARA MELÉNDEZ Rep #:[id number] : 1945 79 From: Veronica Louise DO PCP: Dr. Rosendo Brown MD Status:ADM I N Location: [place] [address] Reason for Visit Reason for Visit: Shortness [...] (Auto) 67.9, Lymph % (Auto) 17.9 L, [place] % (Auto) 10.7 H, Eos % (Auto) [...] semi solid phase gastric emptying. Reading Location: [facility] Rhythm Strip Rhythm Strip: A-fib Rate: 85 [...] on admission Charges/Coding Visit Charges Inpatient E&M: 46860 Subs Hosp L2 01/18/25 1408 Cosigner Signature (if applicable): CC: ~ Signed [facility]05-09-2025 Progress note [facility] Medical Records Department [address] [place] [address] Progress Note - Cardiology 01/18/25 1235 MR#: [id number] Acct: [id number] Name: SAHARA MELÉNDEZ Rep #:[id number] : 1945 79 From: Liat Hale MD PCP: Dr. Rosendo Brown MD Status:ADM I N Location: [place] [address] Subjective Subjective Denies any complaints today. Objective [...] (Auto) 67.9, Lymph % (Auto) 17.9 L, [place] % (Auto) 10.7 H, Eos % (Auto) [...] (Auto) 67.9, Lymph % (Auto) 17.9 L, [place] % (Auto) 10.7 H, Eos % (Auto) [...] semi solid phase gastric emptying. Reading Location: [place] [address] Physical Exam Narrative Comfortable. No apparent distress. [...] Cosigner Signature (if applicable): CC: ~ Signed [facility]05-09-2025 Nuclear medicine Diagnostic study note [facility] Imaging Services [address] [place] [address] Gastric Emptying Study MR#: [id number] Acct: [id number] Name: SAHARA MELÉNDEZ Rep #: [id number] : 1945 F 79 From: Jamshid Pandey MD PCP: Dr. Rosendo Brown MD Status: ADM I N Study:Gastric Emptying Study Date of Exam: 01/18/25 Exam# [id number] Ordering Dr: Dolores Louise DO PROCEDURE: GASTRIC EMPTYING STUDY 01/18/2025 REASON FOR EXAM: NAUSEA COMPARISON: None. TECHNIQUE: The patient ingested a semi solid meal of oatmeal. There was no vomiting postprandially. Anterior and posterior planar images of the upper abdomen were obtained for a total of 60 minutes. Regions of interest were drawn, and a geometric mean was used to calculate a [id number]-[id number]. Medications taken in the past 24 hours [...] semi solid phase gastric emptying. Reading Location: [place] [address] CC: Dr. Veronica Louise DO; Dr. Rosendo Brown MD ~ Pillowcase Maker: Signed [facility]05-09-2025 NoteHNO ID: [id number] Author: IVONNE SINGLETON RN Service: ? Author Type: Registered Nurse Type: Progress Notes Filed: 01/18/2025 11:01 Note Text: Previous entry done in error. Ivonne Singleton RN.[facility] 01-18-2025 History of Present illness Narrative* Ivonne Singleton RN - 01/18/2025 10:59 AM EDT Previous entry done in error. Ivonne Singleton RN. [facility] History and physical note Author Veronica Louise [facility] Note Date/Time January 17, 2025 7:28pm [facility] Medical Records Department [address] [place] [address] H&P Exam - Hospitalist 01/17/25 0715 MR#: [id number] Acct: [id number] Name: SAHARA MELÉNDEZ Rep #:[id number] : 1945 79 From: Veronica Louise DO PCP: Dr. Rosendo Brown MD Status:ADM I N Location: [place] [address] HPI - General General Date of Admission: 01/17/25 Date of Service: 01/17/25 Chief Complaint: Shortness of breath HPI Narrative SAHARA MELÉNDEZ, is a 79 F who presented to the emergency department [facility] on 01/17/2025 with a chief complaint of shortness of breath. She reported been ongoing for about a week and she came in around 5:30 in the morning because it had clinically gotten worse. 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 [facility] Medical History Dyspnea on exertion Wears glasses [...] (Auto) 71.3 H, Lymph % (Auto) 16.5 L,[place] % (Auto) 8.2, Eos % (Auto) 3.0, [...] Follow-up until clearing is recommended. Reading Location: [id number] Assessment & Plan Assessment/Plan (1) Pulmonary edema: [...] on admission Charges/Coding Visit Charges Inpatient E&M: 55104 Init Hosp L2 01/17/251927 <Electronically signed by Veronica Louise DO> Cosigner Signature (if applicable): CC: Dr. Veronica Louise DO; Dr. Rosendo Brown MD~ Signed [facility] Work Phone: 1(300) 130-634705-08-2025 History and physical note [facility] Medical Records Department [address] [place] [address] H&P Exam - Hospitalist 01/17/25 0715 MR#: [id number] Acct: [id number] Name: SAHARA MELÉNDEZ Rep #:[id number] : 1945 79 From: Veronica Louise DO PCP: Dr. Rosendo Brown MD Status:ADM I N Location: [place] [address] HPI - General General Date of Admission: 01/17/25 Date of Service: 01/17/25 Chief Complaint: Shortness of breath HPI Narrative SAHARA MELÉNDEZ, is a 79 F who presented to the emergency department [facility] on 01/17/2025 with a chief complaint of shortness of breath. She reported been ongoing for about a week and she came in around 5:30 in the morning because it had clinically gotten worse. 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 [facility] Medical History Dyspnea on exertion Wears glasses [...] (Auto) 71.3 H, Lymph % (Auto) 16.5 L,[place] % (Auto) 8.2, Eos % (Auto) 3.0, [...] Follow-up until clearing is recommended. Reading Location: [id number] Assessment & Plan Assessment/Plan (1) Pulmonary edema: [...] on admission Charges/Coding Visit Charges Inpatient E&M: 24467 Init Hosp L2 01/17/251927 Cosigner Signature (if applicable): CC: Dr. Veronica Louise DO; Dr. Rosendo Brown MD~ Signed [facility]05-08-2025 Consult note Author Pato Simmons [facility] Note Date/Time January 17, 2025 7:58am [facility] Medical Records Department [address] [place] [address] Consultation - Cardiology 01/17/25 0743 MR#: [id number] Acct: [id number] Name: SAHARA MELÉNDEZ Rep #:[id number] : 1945 79 From: Pato Simmons MD PCP: Dr. Rosendo Brown MD Status:REG E R Location: ED Assessment & Plan Assessment/Plan (1) Paroxysmal atrial fibrillation: PLAN: Patient was documented to be in atrial fibrillation on 01/16/2025 in the [facility] office at a heart rate [...] several days. She was evaluated in the [facility] office yesterday and was found [...] with frequent PVCs nosignificant ischemic changes documented. [facility] Medical History Dyspnea on exertion Wears glasses [...] Applicable: No Charges/Coding Visit Charges Inpatient E&M: 76026 Init Hosp L3 Objective Data Vital Signs: [...] (Auto) 71.3 H, Lymph % (Auto) 16.5 L,[place] % (Auto) 8.2, Eos % (Auto) 3.0, [...] 71.3 H, Lymph % (Auto) 16.5 L, [place] % (Auto) 8.2, Eos % (Auto) 3.0, [...] Follow-up until clearing is recommended. Reading Location: [id number] 01/17/25 075 <Electronically signed by Pato Simmons MD> Cosigner Signature (if applicable): CC: Dr. Rosendo Brown MD~ Signed [facility] Work Phone: 1(467) 715-801105-08-2025 Consult note Author Pato Simmons [facility] Note Date/Time January 17, 2025 7:58am [facility] Medical Records Department [address] [place] [address] [place] [address] Consultation - Cardiology 01/17/25 0743 MR#: [id number] Acct: [id number] Name: SAHARA MELÉNDEZ Rep #:[id number] : 1945 79 From: Pato Simmons MD PCP: Dr. Rosendo Brown MD Status:REG E R Location: ED Assessment & Plan Assessment/Plan (1) Paroxysmal atrial fibrillation: PLAN: Patient was documented to be in atrial fibrillation on 01/16/2025 in the [facility] office at a heart rate [...] several days. She was evaluated in the [facility] office yesterday and was found [...] with frequent PVCs nosignificant ischemic changes documented. [facility] Medical History Dyspnea on exertion Wears glasses [...] Applicable: No Charges/Coding Visit Charges Inpatient E&M: 98748 Init Hosp L3 Objective Data Vital Signs: [...] (Auto) 71.3 H, Lymph % (Auto) 16.5 L,[place] % (Auto) 8.2, Eos % (Auto) 3.0, [...] 71.3 H, Lymph % (Auto) 16.5 L, [place] % (Auto) 8.2, Eos % (Auto) 3.0, [...] Follow-up until clearing is recommended. Reading Location: [id number] 01/17/25 [id number] <Electronically signed by Pato Smimons MD> Cosigner Signature (if applicable): CC: Dr. Rosendo Brown MD~ Signed [facility] Work Phone: 1(761) 637-911005-08-2025 Discharge summary Author Jacinto Flores [facility] Note Date/Time January 17, 2025 7:20am [facility] Medical Records Department [address] [place] [address] Emergency Department Summary 01/17/25 MR#: [id number] Acct: [id number] Name: SAHARA MELÉNDEZ Rep #:[id number] : 1945 79 From: Jacinto Flores [...] some swelling in her legs she thinks. [facility] Medical History Dyspnea on exertion Wears [...] 71.3 H Lymph % (Auto) 16.5 L [place] % (Auto) 8.2 Eos % (Auto) 3.0 [...] Follow-up until clearing is recommended. Reading Location: [facility] Rhythm Strip Rhythm Strip: A-fib Rate: 85 Ectopy: PVC(s) EKG Initial EKG: Attestation: I personally reviewed and interpreted this EKG as follows: Interpretation: No Acute Injury Pattern, Atrial Fibrillation, Non-SpecificST Changes and - (PVCs) Management Discussion w/another healthcare provider: Hospitalist and Boat Patcher [employer] Discharge Plan Dx/Rx/DC Orders Clinical Impression: Acute respiratory insufficiency, Paroxysmal atrial fibrillation, Pulmonary edema Disposition Disposition: Acute Care Hospital [facility] What to do if you have Problems For any increased pain, shortness of breath, bleeding, nausea or vomiting, chestpain, or any unexpected problems, contact your Primary Care Provider. Call [facility] ([phone]) or report to the closest Emergency Room. Call 911 if necessary. 01/17/25 0720 <Electronically signed by Jacinto Flores MD> Cosigner Signature (if applicable): CC: Dr. Rosendo Brown MD ~ Signed [facility] Work Phone: 1(244) 701-854205-08-2025 Consult note [facility] Medical Records Department [address] [place] [address] Consultation - Cardiology 01/17/25 0743 MR#: [id number] Acct: [id number] Name: SAHAAR MELÉNDEZ Rep #:[id number] : 1945 79 From: Pato Simmons MD PCP: Dr. Rosendo Brown MD Status:REG E R Location: ED Assessment & Plan Assessment/Plan (1) Paroxysmal atrial fibrillation: PLAN: Patient was documented to be in atrial fibrillation on 01/16/2025 in the [facility] office at a heart rate [...] several days. She was evaluated in the [facility] office yesterday and was found [...] with frequent PVCs nosignificant ischemic changes documented. [facility] Medical History Dyspnea on exertion Wears glasses [...] side and flat on the gurney. O2 [id number]% on nasal cannula. Const alert and oriented [...] Applicable: No Charges/Coding Visit Charges Inpatient E&M: 33390 Init Hosp L3 Objective Data Vital Signs: [...] (Auto) 71.3 H, Lymph % (Auto) 16.5 L,[place] % (Auto) 8.2, Eos % (Auto) 3.0, [...] 71.3 H, Lymph % (Auto) 16.5 L, [place] % (Auto) 8.2, Eos % (Auto) 3.0, Baso % (Auto) 0.7, Absolute Neuts (auto) 6.2, Nucleated RBC % 0, [id number], Potassium 3.7, Chloride 107, Carbon Dioxide 23.4, [...] Follow-up until clearing is recommended. Reading Location: [facility] 01/17/25 5653 Cosigner Signature (if applicable): CC: Dr. Rosendo Brown MD~ Signed [facility]05-08-2025 Discharge summary [facility] Medical Records Department [address] [place] [address] Emergency Department Summary 01/17/25 MR#: [id number] Acct: [id number] Name: SAHARA MELÉNDEZ Rep #:[id number] : 1945 79 From: Jacinto Flores [...] some swelling in her legs she thinks. [facility] Medical History Dyspnea on exertion Wears [...] 71.3 H Lymph % (Auto) 16.5 L [place] % (Auto) 8.2 Eos % (Auto) 3.0 [...] Follow-up until clearing is recommended. Reading Location: [facility] Rhythm Strip Rhythm Strip: A-fib Rate: 85 Ectopy: PVC(s) EKG Initial EKG: Attestation: I personally reviewed and interpreted this EKG as follows: Interpretation: No Acute Injury Pattern, Atrial Fibrillation, Non-SpecificST Changes and - (PVCs) Management Discussion w/another healthcare provider: Hospitalist and Boat Patcher [employer] Discharge Plan Dx/Rx/DC Orders Clinical Impression: Acute respiratory insufficiency, Paroxysmal atrial fibrillation, Pulmonary edema Disposition Disposition: Acute Care Hospital [facility] What to do if you have Problems For any increased pain, shortness of breath, bleeding, nausea or vomiting, chestpain, or any unexpected problems, contact your Primary Care Provider. Call [facility] ([phone]) or report tothe closest Emergency Room. Call 911 if necessary. 01/17/25 0720 Cosigner Signature (if applicable): CC: Dr. Rosendo Brown MD ~ Signed [facility]05-08-2025 Radiology Diagnostic study note [facility] Imaging Services [address] [place], [place] [id number] Chest 1 View (Portable) MR#: [id number] Acct: [id number] Name: SAHARA MELÉNDEZ Rep #: [id number] : 1945 F 79 From: Judie Saucedo MD PCP: Dr. Rosendo Brown MD Status: PRE E R Study:Chest 1 View (Portable) Date of Exam: 01/17/25 Exam# [id number] Ordering Dr: Nevin Flores MD PROCEDURE: CHEST [...] Follow-up until clearing is recommended. Reading Location: [id number] CC: Dr. Jacinto Flores MD; Dr. Rosendo Brown MD ~ Pillowcase Maker: Signed [facility]05-08-2025 Radiology Diagnostic study note [facility] Imaging Services [address] [place] [address] [id number] Chest PA and Lateral MR#: [id number] Acct: [id number] Name: SAHARA MELÉNDEZ Rep #: [id number] : 1945 F 79 From: Riky Jane MD PCP: Dr. Rosendo Brown MD Status: REG C Study:Chest PA and Lateral Date of Exam: 01/16/25 Exam# [id number] Ordering Dr: Yoel San NP SALES AGENT PROTECTIVE SERVICE-C PROCEDURE: CHEST PA AND LATERAL 01/16/2025 REASON FOR EXAM: PRE-OPERATIVE: [facility] TECHNIQUE: Frontal and lateral views of the [...] enlarged for technique. Reading Location: [facility] CC: SALES AGENT PROTECTIVE SERVICE-C Antonio San; Dr. Rosendo Brown MD ~ Pillowcase Maker: Signed [facility]05-07-2025 Evaluation note* Diagnosis Onset Date Resolution [...] on exertion resolved February 12, 2025 8:25am [facility] Work Phone: [phone] Telephone encounter Note* Telephone Encounter - Shayna Lacey LPN - 01/16/2025 9:09 AM EDT Still isn't feeling well. Will fax over to Dr David. Patient will call them to follow up. Advised to let us know if needs further from this office as she still isn't feeling well. [facility]05-07-2025 Miscellaneous Notes* Telephone Encounter - Shayna [...] the diarrhea has resolved. documented in this encounterSt. [facility] Telephone encounter Note * Telephone Encounter - Rosendo Brown MD - 01/16/2025 8:02 AM EDT Stool studies show white cells that can indicate inflammation or sometimes infection. Rest are ok. Fax to Frankie Arriola. Tell her I would follow with him unless the diarrhea has resolved. [facility]05-05-2025 Telephone encounter Note* Telephone Encounter - Shayna Lacey LPN - 01/14/2025 10:22 AM EDT Patient notified. She is dropping off IFOBT today. [facility]05-05-2025 Miscellaneous Notes* Telephone Encounter - Shayna [...] what is causing it. documented in this encounterSt. [facility]05-05-2025 Telephone encounter Note * Telephone Encounter - Rosendo Brown MD - 01/14/2025 8:27 AM EDT Kidney function is ok. Has a mild anemia. Recheck labs in one week including ifobt to recheck and to see if we can see what is causing it. [facility]05-02-2025 Note* Addendum Note - Rosendo Brown MD - 01/11/2025 2:46 PM EDTAddended by: ROSENDO BROWN on: 01/11/2025 02:46 PM Modules accepted: Orders [facility]05-02-2025 Miscellaneous Notes* Addendum Note - Rosendo Brown MD - 01/11/2025 2:46 PM EDTAddended by: ROSENDO BROWN on: 01/11/2025 02:46 PM Modules accepted: Orders documented in this encounterSt. Rita'S Hospital05-02-2025 NoteHNO ID: [id number] Author: ROSENDO BROWN MD Service: ? Author [...] Pain at IV site Compazine [Prochlor* Intolerance [place] like she was coming out of her [...] SURGICAL HISTORY OF Left (more content not included)...[facility]05-02-2025 History of Present illness Narrative* Rosendo Brown [...] Pain at IV site Compazine [Prochlor* Intolerance [place] like she was coming out of her [...] stable. Rosendo Brown MD documented in this encounterSt. [facility]05-02-2025 Telephone encounter Note * Telephone Encounter - Farideh Cartagena, RN - 01/11/2025 8:53 AM EDT Patient calls for mild nausea and temperature of 99.0. While doing triage patient mentioned that she contacted [facility] because she wants someone to listen to [...] Dr. David and Dr. Marie. She contacted [facility] to ask about seeing her just to [...] ReportsSOB with exertion on occasion. Protocols used: Gltvvk-WUBQH-EO, Heart Rate and Heartbeat Fzphdkkph-ZZXFX-ST [facility]05-02-2025 Miscellaneous Notes* Telephone Encounter - Farideh Cartagena RN - 01/11/2025 8:53 AM EDT Patient calls for mild nausea and temperature of 99.0. While doing triage patient mentioned that she contacted [facility] because she wants someone to listen to [...] Dr. David and Dr. Marie. She contacted [facility] to ask about seeing her just to [...] ReportsSOB with exertion on occasion. Protocols used: Fxllsy-TODII-LV, Heart Rate and Heartbeat Xrqofrvdj-QAVCY-MA documented in this encounterSt. Rita'S Hospital03-24-2025 Telephone encounter Note * Telephone Encounter [...] Perkins MA December 03, 2024 10:[address] [facility]03-24-2025 Miscellaneous Notes* Telephone Encounter - Megan [...] Thank you. Cheyenne Horn. documented in this encounterSt. Rita'S Hospital03-24-2025 Telephone encounter Note * Telephone Encounter [...] supply Please advise. Thank you. Cheyenne Horn. [facility]02-28-2025 Evaluation note* Diagnosis Onset Date Resolution [...] prolapse chronic January 17, 2025 7: 16am [facility] Work Phone: 1(981) 153-902202-28-2025 Evaluation note* Diagnosis Onset Date Resolution Status [...] prolapse chronic January 17, 2025 7: 16am [facility] Work Phone: 1(516) 148-658202-28-2025 Evaluation note* Diagnosis Onset Date Resolution Status [...] regurgitation chronic January 21, 2025 1 2:47pm [facility] Work Phone: 1(756) 328-211202-28-2025 Evaluation note* Diagnosis Onset Date Resolution Status [...] fibrillation inact norm January 21, 2025 12:47pm [facility] Work Phone: 1(221) 948-291102-28-2025 Evaluation note* Diagnosis Onset Date Resolution Status [...] Dyspnea on exertion resolved January 102024 9:38am [facility] Work Phone: 1(681) 479-343902-28-2025 Evaluation note* Diagnosis Onset Date Resolution Status [...] on exertion resolved February 12, 2025 8:25am [facility] Work Phone: 1(381) 592-664202-19-2025 Telephone encounter Note* Telephone Encounter - Lawrence Childress - 10/31/2024 4:30 PM EST [facility] Respiratory received an order for PAP therapy. Unfortunately, the patient resides out of service area and we are unable to provide. Please send the referral to an alternateprovider. Thank you, [facility] [phone] [facility]02-19-2025 Miscellaneous Notes* Telephone Encounter - Trev Childresspattiejose - 10/31/2024 4:[address] [facility] home Care Respiratory received an order for PAP therapy. Unfortunately, the patient resides out of service area and we are unable to provide. Please send the referral to an alternateprovider. Thank you, [facility] [phone] fax documented in this encounterSt. Rita'S Hospital02-12-2025 Instructions* Patient Instructions* Taylor Thompson MD - 10/24/2024 4:40 PM EST Please work on getting the sleep machine, you will feel much better. Make apt for sleep medicine today Schedule with speech therapy Get MRI of the brain done now. Exercise every day for 30 mins, start small with chair exercise, stretches and yoga documented in this encounterSt. Rita'S Hospital02-12-2025 NoteHNO ID: [id number] Author: TAYLOR THOMPSON MD Service: ? Author Type: Physician Type: Progress Notes Filed: 10/24/2024 17:29 Note Text: [facility] Initial Consult Sahara [...] location? collects them Social History: Primary language: Citizen Of [place] Marital Status: Living situation: Home Alone Socially engaged? (participates in activities such as clubs, synagogue, community center, sports, games, visiting friends/relatives, etc?): she goes to synagogue once in a while. Caregiver [place] and Stress Are your feeling overwhelmed? YES [...] I, Transportation:I, Medications: {I, Handle Finances: I. ([place] scale): PMHx: PAST MEDICAL HISTORY Diagnosis Date [...] TRANSORAL DIAGNOSTIC 12/23/00 ES (more content not included)...[facility]02-12-2025 History of Present illness Narrative* Taylor Thompson MD - 10/24/2024 3:53 PM EST [facility] Initial Consult Sahara [...] location? collects them Social History: Primary language: Citizen Of [place] Marital Status: Living situation: Home Alone Socially engaged? (participates in activities such as clubs, synagogue, community center, sports, games, visiting friends/relatives, etc?): she goes to synagogue once in a while. Caregiver Ossian and Stress Are your feeling overwhelmed? YES [...] I, Transportation:I, Medications: {I, Handle Finances: I. ([place] scale): PMHx: PAST MEDICAL HISTORY Diagnosis Date [...] , Taking? , Authorizing Provider Mehnaz Eduardo APRN.STUDY ABROAD COORDINATOR Medication estradiol (ESTRACE) 0.01 % (0.1 mg/gram) vaginal cream, Sig Use 1 g vaginally as directed. Insert 1 gram vaginally at bedtime every night for 14 nights then 1 gm vaginally twice a week. Patient not taking: Reported on 10/24/2024, Start Date 01/19/23, End Date , Taking? , Authorizing Provider Mehnaz Eduardo APRN.STUDY ABROAD COORDINATOR Medication loperamide (IMODIUM) 2 mg cap(s), Sig Take 3 daily, as needed., Start Date 03/12/20, End Date , Taking? Yes, Authorizing Provider Vicky Fraser APRN.STUDY ABROAD COORDINATOR Medication nitroglycerin sublingual (NITROQUICK) 0.4 mg SL [...] Pain at IV site Compazine [Prochlor* Intolerance [place] like she was coming out of her skin Dilaudid [Hydromorp* Intolerance E-Mycin [Erythromyc* GI Upset Latex Rash Review of Systems Difficulty chew/swallow: No Pain: No Tremor: No Incontinence - During the last 3 months did you leak urine? NO - Type?: mixed incontinence Vision No vision problems reported Follows with full decator operator:NO Hearing - Hearing aid : Other: she [...] NO Shuffling: NO Tremors: NO Slowness: NO [place] Cognitive Exam (MOCA): Missed all points on [...] Most - Will discuss healthcare power of commercial real estate attorney next visit. REFERRALS AND RECOMMENDATIONS 1. Discussed [...] any unintended typographical errors. Taylor Thompson MD [facility] documented in this encounterSt. Rita'S Hospital01-21-2025 NoteHNO ID: [id number] Author: ROSENDO BROWN MD Service: ? Author [...] the last 18 months. Still following with [facility]. No chest pain or shortness [...] Pain at IV site Compazine [Prochlor* Intolerance [place] like she was coming out of her [...] WHEN PFRMD 01/11/2006 [place] (more content not included)...[facility]01-21-2025 History of Present illness Narrative* Rosendo Brown [...] the last 18 months. Still following with [facility]. No chest pain or shortness [...] Pain at IV site Compazine [Prochlor* Intolerance [place] like she was coming out of her [...] BASIC Rosendo Brown MD documented in this encounterSt. Rita'S Hospital01-15-2025 NoteHNO ID: [id number] Author: ?, ?, ? Service: ? Author Type: ? Type: Progress Notes Filed: 09/26/2024 15:37 Note Text: Sahara Meléndez is identified through a medication adherence outreach initiative based on pharmacy claims data from [employer] (insurer) for Statin medication(s). Patient is reviewed [...] date per reconcile dispense [facility]01-15-2025 History of Present illness Narrative* Hannah David - 09/26/2024 3:35 PM EST Sahara Meléndez is identified through a medication adherence outreach initiative based on pharmacy claims data from [employer] (insurer) for Statin medication(s). Patient is reviewed [...] fill date per reconcile dispense Hannah David [facility] documented in this encounterSt. Rita'S Hospital01-15-2025 NotePatient Outreach (PHPOHE) SAHARA MELÉNDEZ ([id number]) 1945 F NFR Date Time Provider Department 09/26/24 ROSENDO BROWN PHPOHE During your visit today, we recorded the following information about you: Hannah David 09/26/2024 3:37 PM Signed Sahara Meléndez is identified through a medication adherence outreach initiative based on pharmacy claims data from [employer] (insurer) for Statin medication(s). Patient is reviewed [...] Next fill date per reconcile dispense Hannah Fancy Allergies As of Date: 09/26/2024 Noted Allergy Reaction BENTYL (DICYCLOMINE HCL) 08/13/2013 1 - Mental Status Change CIPROFLOXACIN 05/24/2014 4 - Hives 14 - Other: See Comments Comments: IV Cipro only Pain at IV site COMPAZINE (PROCHLORPERAZINE EDISY*09/07/2005 5 - Intolerance Comments: [place] like she was coming out of her [...] 11/11/2016 Migraines [G43.909] Season (more content not included)...[facility]01-02-2025 Note HNO ID: [id number] Author: MEHNAZ NOEL MA Service: ? Author Type: Bsa Officer Type: Progress Notes Filed: 09/13/2024 11:14 Note Text: POPULATION HEALTH NAVIGATION OUTREACH Action/FYI Patient returned call and declined scheduling. Reason for Outreach Returned Call/MyChart Patient Contacted: Spoke to patient/parent/or legal guardian Patient identified by name and date of : Yes Returned call/MyChart actions taken: Patient declined: Patient Declines Navigation Scheduling / Outreach Navigation Signature: Mehnaz Noel MA September 13, 2024 11:14 [facility]01-02-2025 History of Present illness Narrative* Mehnaz Noel [...] 13, 2024 11:13 AM documented in this encounterSt. [facility]'S Hospital01-02-2025 NoteHNO ID: [id number] Author: MENHAZ NOEL MA Service: ? Author Type: Bsa Officer Type: Progress Notes Filed: 09/13/2024 11:14 Note [...] Mehnaz Noel MA September 13, 2024 11:13 [facility]01-02-2025 NotePatient Outreach (NETNAV) SAHARA MELÉNDEZ ([id number]) 1945 F NFR Date Time Provider Department [...] COMPAZINE (PROCHLORPERAZINE EDISY*09/07/2005 5 - Intolerance Comments: [place] like she was coming out of her [...] angioma of brain (HC (more content not included)...[facility]11-14-2024 Evaluation note* Diagnosis Onset Date Resolution Status Admit Date Dyspnea on exertion acute Novem 2023 10:44am High cholesterol acute July 26, 2024 10:44am Non-sustained ventricular tachycardia acute July 26, 024 10:44am Paroxysmal atrial fibrillation acute July 26, 2024 10:44am Non-rheumatic mitral regurgitation chronic July 26, 2 024 10:44am Celiac disease acute October 142024 9:52am [facility] Work Phone: 1(807) 763-854610-21-2024 Telephone encounter Note* Telephone Encounter - Joelle Sultana LPN - 07/02/2024 8:30 AM EDT Pt called to refill [place] and she reports she is taking 2 per day. Pt will contact Dr. David's office for refill. If any problems will call back. Joelle Sultana LPN [facility]10-21-2024 Miscellaneous Notes* Telephone Encounter - Joelle Sultana LPN - 07/02/2024 8:30 AM EDT Pt called to refill [place] and she reports she is taking 2 per day. Pt will contact Dr. David's office for refill. If any problems will call back. Joelle Sultana LPN documented in this encounterSt. Rita'S Hospital10-08-2024 Telephone encounter Note * Telephone Encounter - Mary Alejandro APRN.CNP - 06/19/2024 11:33 AM EDT Noted. Mary Alejandro APRN.RED [facility] Work Phone: 1(915) 435-476410-08-2024 Miscellaneous Notes* Telephone Encounter - Mary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 Rita'S Hospital06-01-2022 Miscellaneous Notes* Telephone Encounter - Farideh [...] CC to Dr. Brown documented in this encounterSt. Rita'S Hospital06-01-2022 History of Present illness Narrative* Carina [...] 10, 2022 11:16 AM documented in this encounterSt. Rita'S Hospital05-30-2022 History of Present illness Narrative* Brock [...] every 4 hours as needed. FOR PAIN. phdihdlh-nlgtfsu-hwdn 149-hyal(GLUCOSAMINE CHONDROITIN COMPLEX ADVANCED 333WE-258XJ-060RE-1.65MG TAB) one tablet daily MULTIVITAMIN TAB Take one(1) tablet daily. loperamide (IMODIUM) 2 mg cap(s) Take 3 daily, as needed. ALLERGIES: ALLERGIES Allergen Reactions Bentyl [Dicyclomine* Mental Status Change Ciprofloxacin Hives, Other: See Comments IV Cipro only Pain at IV site Compazine [Prochlor* Intolerance [place] like she was coming out of her [...] available. Brock Avelar MD documented in this encounterSt. Rita'S Hospital01-04-2019 History of Past illness Narrative* Problem Noted Date Resolved Date Encounter for screening for malignant neoplasm o f colon 09/15/2018 01/01/2021 Overview: Added automatically from request for surgery [id number] Altered bowel function 07/24/2018 Overview: Added automatically from request for surgery [id number] Epigastric pain 05/23/2018 01/03/2021 Overview: Added automatically from request for surgery [id number] Abdominal pain, epigastric 02/09/201211/11 Intradermal nevus: L [...] of this encounter (statuses as of 02/08/2022) [facility] of Past illness Narrative* Problem Noted Date Resolved Date Encounter for screening for malignant neoplasm o f colon 09/15/2018 01/01/2021 Overview: Added automatically from request for surgery [id number] Altered bowel function 07/24/2018 Overview: Added automatically from request for surgery [id number] Epigastric pain 05/23/2018 01/03/2021 Overview: Added automatically from request for surgery [id number] Abdominal pain, epigastric 02/09/201211/11 Intradermal nevus: L [...] of this encounter (statuses as of 02/10/2022) [facility] of Past illness Narrative* Problem Noted Date Resolved Date Encounter for screening for malignant neoplasm o f colon 09/15/2018 01/01/2021 Overview: Added automatically from request for surgery [id number] Altered bowel function 07/24/2018 Overview: Added automatically from request for surgery [id number] Epigastric pain 05/23/2018 01/03/2021 Overview: Added automatically from request for surgery [id number] Abdominal pain, epigastric 02/09/201211/11 Intradermal nevus: L [...] of this encounter (statuses as of 02/11/2022) [facility] of Past illness Narrative* Problem Noted Date Resolved Date Encounter for screening for malignant neoplasm o f colon 09/15/2018 01/01/2021 Overview: Added automatically from request for surgery [id number] Altered bowel function 07/24/2018 Overview: Added automatically from request for surgery [id number] Epigastric pain 05/23/2018 01/03/2021 Overview: Added automatically from request for surgery [id number] Abdominal pain, epigastric 02/09/201211/11 Intradermal nevus: L [...] of this encounter (statuses as of 02/22/2022) [facility] History of Past illness Narrative* Problem Noted Date Resolved Date Encounter for screening for malignant neoplasm o f colon 09/15/2018 01/01/2021 Overview: Added automatically from request for surgery [id number] Altered bowel function 07/24/2018 Overview: Added automatically from request for surgery [id number] Epigastric pain 05/23/2018 01/03/2021 Overview: Added automatically from request for surgery [id number] Abdominal pain, epigastric 02/09/201211/11 Intradermal nevus: L [...] of this encounter (statuses as of 03/29/2022) [facility] History of Past illness Narrative* Problem Noted Date Resolved Date Encounter for screening for malignant neoplasm o f colon 09/15/2018 01/01/2021 Overview: Added automatically from request for surgery [id number] Altered bowel function 07/24/2018 Overview: Added automatically from request for surgery [id number] Epigastric pain 05/23/2018 01/03/2021 Overview: Added automatically from request for surgery [id number] Abdominal pain, epigastric 02/09/201211/11 Intradermal nevus: L [...] of this encounter (statuses as of 04/06/2022) [facility] History of Past illness Narrative* Problem Noted Date Resolved Date Encounter for screening for malignant neoplasm o f colon 09/15/2018 01/01/2021 Overview: Added automatically from request for surgery [id number] Altered bowel function 07/24/2018 Overview: Added automatically from request for surgery [id number] Epigastric pain 05/23/2018 01/03/2021 Overview: Added automatically from request for surgery [id number] Nausea 08/02/2017 04/27/2022 Abdominal pain, epigastric 02/09/201211/11 [...] of this encounter (statuses as of 04/27/2022) [facility] History of Past illness Narrative* Problem Noted Date Resolved Date Encounter for screening for malignant neoplasm o f colon 09/15/2018 01/01/2021 Overview: Added automatically from request for surgery [id number] Altered bowel function 07/24/2018 Overview: Added automatically from request for surgery [id number] Epigastric pain 05/23/2018 01/03/2021 Overview: Added automatically from request for surgery [id number] Nausea 08/02/2017 04/27/2022 Abdominal pain, epigastric 02/09/201211/11 [...] of this encounter (statuses as of 05/27/2022) [facility] History of Past illness Narrative* Problem Noted Date Resolved Date Encounter for screening for malignant neoplasm o f colon 09/15/2018 01/01/2021 Overview: Added automatically from request for surgery [id number] Altered bowel function 07/24/2018 Overview: Added automatically from request for surgery [id number] Epigastric pain 05/23/2018 01/03/2021 Overview: Added automatically from request for surgery [id number] Nausea 08/02/2017 04/27/2022 Abdominal pain, epigastric 02/09/201211/11 [...] of this encounter (statuses as of 06/15/2022) [facility] History of Past illness Narrative* Problem Noted Date Resolved Date Encounter for screening for malignant neoplasm o f colon 09/15/2018 01/01/2021 Overview: Added automatically from request for surgery [id number] Altered bowel function 07/24/2018 Overview: Added automatically from request for surgery [id number] Epigastric pain 05/23/2018 01/03/2021 Overview: Added automatically from request for surgery [id number] Nausea 08/02/2017 04/27/2022 Abdominal pain, epigastric 02/09/201211/11 [...] of this encounter (statuses as of 10/16/2022) [facility] History of Past illness Narrative* Problem Noted Date Resolved Date Encounter for screening for malignant neoplasm o f colon 09/15/2018 01/01/2021 Overview: Added automatically from request for surgery [id number] Altered bowel function 07/24/2018 Overview: Added automatically from request for surgery [id number] Epigastric pain 05/23/2018 01/03/2021 Overview: Added automatically from request for surgery [id number] Nausea 08/02/2017 04/27/2022 Abdominal pain, epigastric 02/09/201211/11 [...] of this encounter (statuses as of 11/01/2022) [facility] of Past illness Narrative* Problem Noted Date Resolved Date Encounter for screening for malignant neoplasm o f colon 09/15/2018 01/01/2021 Overview: Added automatically from request for surgery [id number] Altered bowel function 07/24/2018 Overview: Added automatically from request for surgery [id number] Epigastric pain 05/23/2018 01/03/2021 Overview: Added automatically from request for surgery [id number] Nausea 08/02/2017 04/27/2022 Abdominal pain, epigastric 02/09/201211/11 [...] of this encounter (statuses as of 11/03/2022) [facility] of Past illness Narrative* Problem Noted Date Resolved Date Encounter for screening for malignant neoplasm o f colon 09/15/2018 01/01/2021 Overview: Added automatically from request for surgery [id number] Altered bowel function 07/24/2018 Overview: Added automatically from request for surgery [id number] Epigastric pain 05/23/2018 01/03/2021 Overview: Added automatically from request for surgery [id number] Nausea 08/02/2017 04/27/2022 Abdominal pain, epigastric 02/09/201211/11 [...] of this encounter (statuses as of 01/02/2023) [facility] of Past illness Narrative* Problem Noted Date Resolved Date Encounter for screening for malignant neoplasm o f colon 09/15/2018 01/01/2021 Overview: Added automatically from request for surgery [id number] Altered bowel function 07/24/2018 Overview: Added automatically from request for surgery [id number] Epigastric pain 05/23/2018 01/03/2021 Overview: Added automatically from request for surgery [id number] Nausea 08/02/2017 04/27/2022 Abdominal pain, epigastric 02/09/201211/11 [...] of this encounter (statuses as of 01/03/2023) [facility] of Past illness Narrative* Problem Noted Date Resolved Date Encounter for screening for malignant neoplasm o f colon 09/15/2018 01/01/2021 Overview: Added automatically from request for surgery [id number] Altered bowel function 07/24/2018 Overview: Added automatically from request for surgery [id number] Epigastric pain 05/23/2018 01/03/2021 Overview: Added automatically from request for surgery [id number] Nausea 08/02/2017 04/27/2022 Abdominal pain, epigastric 02/09/201211/11 [...] of this encounter (statuses as of 01/18/2023) [facility] History of Past illness Narrative* Problem Noted Date Resolved Date Encounter for screening for malignant neoplasm o f colon 09/15/2018 01/01/2021 Overview: Added automatically from request for surgery [id number] Altered bowel function 07/24/2018 Overview: Added automatically from request for surgery [id number] Epigastric pain 05/23/2018 01/03/2021 Overview: Added automatically from request for surgery [id number] Nausea 08/02/2017 04/27/2022 Abdominal pain, epigastric 02/09/201211/11 [...] of this encounter (statuses as of 01/19/2023) [facility] History of Past illness Narrative* Problem Noted Date Resolved Date Encounter for screening for malignant neoplasm o f colon 09/15/2018 01/01/2021 Overview: Added automatically from request for surgery [id number] Altered bowel function 07/24/2018 Overview: Added automatically from request for surgery [id number] Epigastric pain 05/23/2018 01/03/2021 Overview: Added automatically from request for surgery [id number] Nausea 08/02/2017 04/27/2022 Abdominal pain, epigastric 02/09/201211/11 [...] of this encounter (statuses as of 01/21/2023) [facility] History of Past illness Narrative* Problem Noted Date Resolved Date Encounter for screening for malignant neoplasm o f colon 09/15/2018 01/01/2021 Overview: Added automatically from request for surgery [id number] Altered bowel function 07/24/2018 Overview: Added automatically from request for surgery [id number] Epigastric pain 05/23/2018 01/03/2021 Overview: Added automatically from request for surgery [id number] Nausea 08/02/2017 04/27/2022 Abdominal pain, epigastric 02/09/201211/11 [...] of this encounter (statuses as of 01/26/2023) [facility] History of Past illness Narrative* Problem Noted Date Resolved Date Encounter for screening for malignant neoplasm o f colon 09/15/2018 01/01/2021 Overview: Added automatically from request for surgery [id number] Altered bowel function 07/24/2018 Overview: Added automatically from request for surgery [id number] Epigastric pain 05/23/2018 01/03/2021 Overview: Added automatically from request for surgery [id number] Nausea 08/02/2017 04/27/2022 Abdominal pain, epigastric 02/09/201211/11 [...] of this encounter (statuses as of 02/13/2023) [facility] of Past illness Narrative* Problem Noted Date Resolved Date Encounter for screening for malignant neoplasm o f colon 09/15/2018 01/01/2021 Overview: Added automatically from request for surgery [id number] Altered bowel function 07/24/2018 Overview: Added automatically from request for surgery [id number] Epigastric pain 05/23/2018 01/03/2021 Overview: Added automatically from request for surgery [id number] Nausea 08/02/2017 04/27/2022 Abdominal pain, epigastric 02/09/201211/11 [...] of this encounter (statuses as of 02/13/2023) [facility] History of Past illness Narrative* Problem Noted Date Resolved Date Encounter for screening for malignant neoplasm o f colon 09/15/2018 01/01/2021 Overview: Added automatically from request for surgery [id number] Altered bowel function 07/24/2018 Overview: Added automatically from request for surgery [id number] Epigastric pain 05/23/2018 01/03/2021 Overview: Added automatically from request for surgery [id number] Nausea 08/02/2017 04/27/2022 Abdominal pain, epigastric 02/09/201211/11 [...] of this encounter (statuses as of 02/15/2023) [facility] of Past illness Narrative* Problem Noted Date Resolved Date Encounter for screening for malignant neoplasm o f colon 09/15/2018 01/01/2021 Overview: Added automatically from request for surgery [id number] Altered bowel function 07/24/2018 Overview: Added automatically from request for surgery [id number] Epigastric pain 05/23/2018 01/03/2021 Overview: Added automatically from request for surgery [id number] Nausea 08/02/2017 04/27/2022 Abdominal pain, epigastric 02/09/201211/11 [...] of this encounter (statuses as of 02/25/2023) [facility] of Past illness Narrative* Problem Noted Date Resolved Date Encounter for screening for malignant neoplasm o f colon 09/15/2018 01/01/2021 Overview: Added automatically from request for surgery [id number] Altered bowel function 07/24/2018 Overview: Added automatically from request for surgery [id number] Epigastric pain 05/23/2018 01/03/2021 Overview: Added automatically from request for surgery [id number] Nausea 08/02/2017 04/27/2022 Abdominal pain, epigastric 02/09/201211/11 [...] of this encounter (statuses as of 03/01/2023) [facility] of Past illness Narrative* Problem Noted Date Resolved Date Encounter for screening for malignant neoplasm o f colon 09/15/2018 01/01/2021 Overview: Added automatically from request for surgery [id number] Altered bowel function 07/24/2018 Overview: Added automatically from request for surgery [id number] Epigastric pain 05/23/2018 01/03/2021 Overview: Added automatically from request for surgery [id number] Nausea 08/02/2017 04/27/2022 Abdominal pain, epigastric 02/09/201211/11 [...] of this encounter (statuses as of 03/04/2023) [facility] of Past illness Narrative* Problem Noted Date Resolved Date Encounter for screening for malignant neoplasm o f colon 09/15/2018 01/01/2021 Overview: Added automatically from request for surgery [id number] Altered bowel function 07/24/2018 Overview: Added automatically from request for surgery [id number] Epigastric pain 05/23/2018 01/03/2021 Overview: Added automatically from request for surgery [id number] Nausea 08/02/2017 04/27/2022 Abdominal pain, epigastric 02/09/201211/11 [...] of this encounter (statuses as of 03/05/2023) [facility] of Past illness Narrative* Problem Noted Date Resolved Date Encounter for screening for malignant neoplasm o f colon 09/15/2018 01/01/2021 Overview: Added automatically from request for surgery [id number] Altered bowel function 07/24/2018 Overview: Added automatically from request for surgery [id number] Epigastric pain 05/23/2018 01/03/2021 Overview: Added automatically from request for surgery [id number] Nausea 08/02/2017 04/27/2022 Abdominal pain, epigastric 02/09/201211/11 [...] of this encounter (statuses as of 03/08/2023) [facility] of Past illness Narrative* Problem Noted Date Resolved Date Encounter for screening for malignant neoplasm o f colon 09/15/2018 01/01/2021 Overview: Added automatically from request for surgery [id number] Altered bowel function 07/24/2018 Overview: Added automatically from request for surgery [id number] Epigastric pain 05/23/2018 01/03/2021 Overview: Added automatically from request for surgery [id number] Nausea 08/02/2017 04/27/2022 Abdominal pain, epigastric 02/09/201211/11 [...] of this encounter (statuses as of 03/10/2023) [facility] of Past illness Narrative* Problem Noted Date Resolved Date Encounter for screening for malignant neoplasm o f colon 09/15/2018 01/01/2021 Overview: Added automatically from request for surgery [id number] Altered bowel function 07/24/2018 Overview: Added automatically from request for surgery [id number] Epigastric pain 05/23/2018 01/03/2021 Overview: Added automatically from request for surgery [id number] Nausea 08/02/2017 04/27/2022 Abdominal pain, epigastric 02/09/201211/11 [...] of this encounter (statuses as of 03/11/2023) [facility] of Past illness Narrative* Problem Noted Date Diagnosed Date Resolved Date Encounter for screening for malignant neoplasm of colon 09/15/2018 01/01/2021 Overview: Added automatically from request for surgery [id number] Altered bowel function 07/24/201801/03 Overview: Added automatically from request for surgery [id number] Epigastric pain 05/23/2018 01/03/2021 Overview: Added automatically from request for surgery [id number] Nausea 08/02/2017 04/27/2022 Abdominal pain, epigastric 02/09/2012 [...] of this encounter (statuses as of 03/25/2023) [facility] of Past illness Narrative* Problem Noted Date Diagnosed Date Resolved Date Encounter for screening for malignant neoplasm of colon 09/15/2018 01/01/2021 Overview: Added automatically from request for surgery [id number] Altered bowel function 07/24/201801/03 Overview: Added automatically from request for surgery [id number] Epigastric pain 05/23/2018 01/03/2021 Overview: Added automatically from request for surgery [id number] Nausea 08/02/2017 04/27/2022 Abdominal pain, epigastric 02/09/2012 [...] of this encounter (statuses as of 03/30/2023) [facility] of Past illness Narrative* Problem Noted Date Diagnosed Date Resolved Date Encounter for screening for malignant neoplasm of colon 09/15/2018 01/01/2021 Overview: Added automatically from request for surgery [id number] Altered bowel function 07/24/201801/03 Overview: Added automatically from request for surgery [id number] Epigastric pain 05/23/2018 01/03/2021 Overview: Added automatically from request for surgery [id number] Nausea 08/02/2017 04/27/2022 Abdominal pain, epigastric 02/09/2012 [...] of this encounter (statuses as of 03/31/2023) [facility] of Past illness Narrative* Problem Noted Date Diagnosed Date Resolved Date Encounter for screening for malignant neoplasm of colon 09/15/2018 01/01/2021 Overview: Added automatically from request for surgery [id number] Altered bowel function 07/24/201801/03 Overview: Added automatically from request for surgery [id number] Epigastric pain 05/23/2018 01/03/2021 Overview: Added automatically from request for surgery [id number] Nausea 08/02/2017 04/27/2022 Abdominal pain, epigastric 02/09/2012 [...] of this encounter (statuses as of 04/28/2023) [facility] Past illness Narrative* Problem Noted Date Diagnosed Date Resolved Date Encounter for screening for malignant neoplasm of colon 09/15/2018 01/01/2021 Overview: Added automatically from request for surgery [id number] Altered bowel function 07/24/201801/03 Overview: Added automatically from request for surgery [id number] Epigastric pain 05/23/2018 01/03/2021 Overview: Added automatically from request for surgery [id number] Nausea 08/02/2017 04/27/2022 Abdominal pain, epigastric 02/09/2012 [...] of this encounter (statuses as of 06/07/2023) [facility] Narrative* Problem Noted Date Diagnosed Date Resolved Date Encounter for screening for malignant neoplasm of colon 09/15/2018 01/01/2021 Overview: Added automatically from request for surgery [id number] Altered bowel function 07/24/201801/03 Overview: Added automatically from request for surgery [id number] Epigastric pain 05/23/2018 01/03/2021 Overview: Added automatically from request for surgery [id number] Nausea 08/02/2017 04/27/2022 Abdominal pain, epigastric 02/09/2012 [...] of this encounter (statuses as of 08/03/2023) [facility] Narrative* Problem Noted Date Diagnosed Date Resolved Date Encounter for screening for malignant neoplasm of colon 09/15/2018 01/01/2021 Overview: Added automatically from request for surgery [id number] Altered bowel function 07/24/201801/03 Overview: Added automatically from request for surgery [id number] Epigastric pain 05/23/2018 01/03/2021 Overview: Added automatically from request for surgery [id number] Nausea 08/02/2017 04/27/2022 Abdominal pain, epigastric 02/09/2012 [...] of this encounter (statuses as of 10/14/2023) [facility] Narrative* Problem Noted Date Diagnosed Date Resolved Date Encounter for screening for malignant neoplasm of colon 09/15/2018 01/01/2021 Overview: Added automatically from request for surgery [id number] Altered bowel function 07/24/201801/03 Overview: Added automatically from request for surgery [id number] Epigastric pain 05/23/2018 01/03/2021 Overview: Added automatically from request for surgery [id number] Nausea 08/02/2017 04/27/2022 Abdominal pain, epigastric 02/09/2012 [...] of this encounter (statuses as of 10/31/2023) [facility] Narrative* Problem Noted Date Diagnosed Date Resolved Date Encounter for screening for malignant neoplasm of colon 09/15/2018 01/01/2021 Overview: Added automatically from request for surgery [id number] Altered bowel function 07/24/201801/03 Overview: Added automatically from request for surgery [id number] Epigastric pain 05/23/2018 01/03/2021 Overview: Added automatically from request for surgery [id number] Nausea 08/02/2017 04/27/2022 Abdominal pain, epigastric 02/09/2012 [...] of this encounter (statuses as of 11/21/2023) [facility] Narrative* Problem Noted Date Diagnosed Date Resolved Date Encounter for screening for malignant neoplasm of colon 09/15/2018 01/01/2021 Overview: Added automatically from request for surgery [id number] Altered bowel function 07/24/201801/03 Overview: Added automatically from request for surgery [id number] Epigastric pain 05/23/2018 01/03/2021 Overview: Added automatically from request for surgery [id number] Nausea 08/02/2017 04/27/2022 Abdominal pain, epigastric 02/09/2012 [...] of this encounter (statuses as of 11/22/2023) [facility] Narrative* Problem Noted Date Diagnosed Date Resolved Date Encounter for screening for malignant neoplasm of colon 09/15/2018 01/01/2021 Overview: Added automatically from request for surgery [id number] Altered bowel function 07/24/201801/03 Overview: Added automatically from request for surgery [id number] Epigastric pain 05/23/2018 01/03/2021 Overview: Added automatically from request for surgery [id number] Nausea 08/02/2017 04/27/2022 Abdominal pain, epigastric 02/09/2012 [...] of this encounter (statuses as of 11/24/2023) [facility] Susana Ayala [facility] March 24, 2023 10:17am Note Date/Time March 24, 2023 10:1 6am [facility] Medical Records Department [address] [place] [address] Instructions for Home/Discharge Instructions 03/24/23 1015 MR#: [id number] Acct: [id number] Name: SAHARA MELÉNDEZ Rep #:[id number] 5 : 1945 77 From: Susana Wallis [...] 10 mg tablet 10 mg PO DAILY [id number] mg tablet 1 tab PO DAILY [...] CC: Dr. Rosendo Brown MD ~ Signed [facility] Work Phone: evaluation note* Diagnosis Anterior leg pain, left- Primary documented in this encounter [facility] note* Diagnosis Anterior leg pain, left documented in this encounter [facility] note* Diagnosis Onset Date Resolution Status Diarrhea acute [facility] Work Phone: Evaluation note* Diagnosis Onset Date Resolution Status Celiac disease acute [facility] Work Phone: Evaluation note* Diagnosis Onset Date Resolution Status Celiac disease acute Non-rheumatic mitral regurgitation chronic Nonrheumatic mitral (valve) prolapse chronic Ventricular ectopy chronic [facility] Work Phone: Evaluation note* Diagnosis Celiac [...] Pain in limb documented in this encounter [facility] note* Diagnosis Post-menopausal Asymptomatic postmenopausal status (age-related) (natural) documented in this encounter [facility] note* Diagnosis Urinary frequency- Primary Recurrent UTI (urinary tract infection) Urinary tract infection, site not specified documented in this encounter [facility] note* Diagnosis Microscopic hematuria- Primary Chronic diastolic (congestive) heart failure (HCC) Nonrheumatic mitral (valve) insufficiency Venous angioma of brain (HCC) Hemangioma of intracranial structures Osteopenia of multiple sites Celiac disease Mixed hyperlipidemia Dysuria [facility] this [facility] Diagnosis Burning with urination- Primary Dysuria [facility]* Diagnosis Vaginal burning- Primary Other specified symptom associated with female genital organs Cystocele, midline Postmenopausal atrophic vaginitis Recurrent UTI Urinary tract infection, site not specified [facility]* Diagnosis Onset Date Resolution Status Dysarthria acute Right hand weakness acute UTI (urinary tract infection) acute [facility] Work Phone: Evaluation note* Diagnosis Cystocele, midline- Primary Recurrent UTI Urinary tract infection, site not specified [facility] this [facility] Diagnosis TIA (transient ischemic attack)- Primary Unspecified transient cerebral ischemia documented in this encounter [facility] note* Diagnosis Dysuria- Primary [facility]* Diagnosis Onset Date Resolution Status UTI (urinary tract infection) acute Dysarthria resolved Right hand weakness resolved Hypersomnolence acute Non-sustained ventricular tachycardia acute Paroxysmal atrial fibrillation acute Non-rheumatic mitral regurgitation chronic [facility] Work Phone: Evaluation note* Diagnosis TIA (transient ischemic attack)- Primary Unspecified transient cerebral ischemia Venous angioma Hemangioma of unspecified site Paroxysmal A-fib (HCC) Atrial fibrillation Elevated LDL cholesterol level Pure hypercholesterolemia Sleep apnea-like behavior Class 2 obesity with body mass index (BMI) of 37.0 to 37.9 in adult, unspecified obesity type, unspecified whether serious comorbidity present [facility] Diagnosis Urinary frequency- Primary documented [facility] this [facility] Diagnosis Screening mammogram for breast cancer- Primary [facility]* Diagnosis TIA (transient ischemic attack)- Primary Unspecified transient cerebral ischemia Chronic diastolic (congestive) heart failure (HCC) Mitral valve prolapse Mitral valve disorders Nonrheumatic mitral (valve) insufficiency Celiac disease Paroxysmal atrial fibrillation (HCC) Atrial fibrillation documented in this encounter [facility] note* Diagnosis Adjustment reaction with anxiety and depression Adjustment disorder with mixed anxiety and depressed mood [facility] Diagnosis Sleep apnea-like behavior- Primary SARAH (obstructive sleep apnea) Obstructive sleep apnea (adult) (pediatric) [facility] this [facility] Diagnosis Other migraine without status migrainosus, not intractable- Primary Paroxysmal atrial fibrillation (HCC) Atrial fibrillation Nonrheumatic mitral (valve) insufficiency Chronic diastolic (congestive) heart failure (HCC) Irritable bowel syndrome with diarrhea Irritable bowel syndrome Celiac disease Colitis Other and unspecified noninfectious gastroenteritis and colitis Anxiety Anxiety state, unspecified Elevated LDL cholesterol level Pure hypercholesterolemia [facility] Diagnosis SARAH (obstructive sleep apnea)- Primary Obstructive sleep apnea (adult) (pediatric) [facility] Diagnosis Situational anxiety- Primary Other anxiety states [facility] Diagnosis Anxiety with depression- Primary Situational anxiety Other anxiety states [facility] Diagnosis Gastritis without bleeding, unspecified chronicity, unspecified gastritis type [facility]* Diagnosis Adjustment reaction with anxiety and depression Adjustment disorder with mixed anxiety and depressed mood [facility] Diagnosis Cough, unspecified type- Primary Wheezing Cough, unspecified type Wheezing [facility] Diagnosis Visit for screening mammogram- Primary Other screening mammogram [facility] Diagnosis Cough, unspecified type Wheezing [facility] Diagnosis Acute pain of right shoulder [facility] Diagnosis Foot pain, left Pain in limb [facility] Diagnosis Elevated LDL cholesterol level Pure hypercholesterolemia documented [facility] this [facility] Diagnosis Chronic diastolic (congestive) heart [...] ischemia Other hyperlipidemia [facility]* Diagnosis Cognitive impairment, mild, so stated- Primary Mild cognitive impairment, so stated Memory impairment Memory loss Word finding difficulty Problems with communication (including speech) Sleep apnea, unspecified type documented [facility]* Diagnosis Elevated LDL cholesterol level Pure hypercholesterolemia documented [facility]* Diagnosis Diarrhea, unspecified type- Primary Irritable bowel syndrome with diarrhea Irritable bowel syndrome Colitis Other and unspecified noninfectious gastroenteritis and colitis Celiac disease (HCC) Celiac disease Mitral valve prolapse Mitral valve disorders Paroxysmal atrial fibrillation (HCC) Atrial fibrillation documented in this [facility]* Diagnosis Anemia, unspecified type- Primary documented [facility]* Diagnosis Chronic diastolic (congestive) heart failure [...] eyelid Hordeolum externum documented in this [facility]* Diagnosis Blood in stool- Primary documented in this [facility] Diagnosis Mitral valve insufficiency, unspecified etiology- [...] Blood in stool documented in this encounter [facility]* Diagnosis Elevated LDL cholesterol level Pure hypercholesterolemia [facility] Diagnosis Adjustment reaction with anxiety and depression Adjustment disorder with mixed anxiety and depressed mood [facility] this [facility] Diagnosis Cognitive impairment, mild, so stated Mild cognitive impairment, so stated Memory impairment Memory loss [facility] this [facility] Diagnosis Pre-operative cardiovascular examination- Primary Atrial fibrillation, unspecified type (HCC) Mitral valve disorder Mitral valve disorders Pre-operative cardiovascular examination Atrial fibrillation, unspecified type (HCC) Mitral valve disorder Mitral valve disorders [facility] Author Dr. Louise [facility] January 20, 2023 2:16pm Note Date/Time January 20, 2023 1:25p m [facility] Medical Records Department [address] [place] [address] H&P Exam - Hospitalist 01/20/23 1315 MR#: [id number] Acct: [id number] Name: SAHARA MELÉNDEZ Rep #:[id number] 2 : 1945 77 From: Veronica Louise DO PCP: Dr. Rosendo Brown MD Status:ADM I NO [facility] - General General Date of Admission: 01/20/23 Date of Service: 01/20/23 Chief Complaint: Dysarthria/right hand weakness HPI Narrative SAHARA MELÉNDEZ, is a 77 F who presented to the emergency department at [facility] on 01/20/2023 with dysarthria and right [...] ST-T wave changes concerning for acute ischemia. [facility] Medical History Anxiety and depression Arthritis Bladder [...] 06/16/13 [History Last Taken 01/20/23] glucosamine 750 ft-prhcaxlyzb-oty no.1 625 mg-C 30 xg-agmw-chxw tablet 1 ea PO DAILY SUPPLEMENT 07/02/16 [...] % (Auto) 63.0, Lymph % (Auto) 21.2, [place] % (Auto) 10.2 H, Eos % (Auto) [...] Sl. Cloudy, Urine pH 7.0, Ur Specific [place] 1.005, Urine Protein 15 H, Urine Glucose [...] on admission Charges/Coding Visit Charges Inpatient E&M: 43677 Init Hosp L2 01/20/23 1416 <Electronically signed by Veronica Louise DO> Cosigner Signature (if applicable): CC: Dr. Veronica Louise DO; Dr. Rosendo Brown MD~ Signed [facility] Work Phone: Hospital Discharge instructions Additional Instructions Implant Used?: [facility] Work Phone: Reason for referral (narrative)* Diagnostic Procedure Only (Urgent) - Authorized Specialty Diagnoses / Procedures Referred By Contstefany t Referred To Contact US IMAGING Diagnoses Anterior leg pain, left Procedures US DVT LOWER LT DUP-SCAN XTR VEINS UNILATERAL/LIMITED STUDY Brock Avelar MD [address] [place] [address] Us Imaging Referral ID Status Reason Start Date Expiration Date Visits Requested Visits Authorized [id number] Authorized Auto-Generat ed Referral 02/08/2022 03/10/2023 1 1 [facility] for referral (narrative)* Diagnostic Procedure Only (Urgent) - Closed Specialty Diagnoses / Procedures Referred By Contac t Referred To Contact US IMAGING Diagnoses Anterior leg pain, left Procedures US DVT LOWER LT DUP-SCAN XTR VEINS UNILATERAL/LIMITED STUDY Brock Avelar MD [address] [place] [address] Us Imaging Referral ID Status Reason Start Date Expiration Date V isits Requested Visits Authorized [id number] Closed Auto-Generate d Referral 02/08/2022 03/10/2023 1 1 [facility] for referral (narrative)* Diagnostic Procedure Only (Routine) - Closed Specialty Diagnoses / Procedures Referred By Contac t Referred To Contact XR IMAGING Diagnoses Foot pain, left Procedures XR FOOT GENERAL 3V AP/LAT/OBL LEFT RADEX FOOT COMPLETE MINIMUM 3 VIEWS Rosendo Brown MD [address] [place] [address] Xr Imaging Referral ID Status Reason Start Date Expiration Date V isits Requested Visits Authorized [id number] Closed Auto-Generate d Referral 04/27/2022 05/27/2023 1 1 [facility] for referral (narrative)* Diagnostic Procedure Only (Routine) - Authorized Specialty Diagnoses / Procedures Referred By Contac t Referred To Contact [facility] Diagnoses TIA (transient ischemic attack) Sleep apnea-like behavior Procedures HOME SLEEP APNEA TEST (HSAT) SLEEP STD AIRFLOW HRT RATE&O2 SAT EFFORT DANGELOTT Rosendo Martinez Jr., MD [address] [facility] [address] [place] [address] [facility] [address] [place] [address] Referral ID Status Reason Start Date Expiration Date Visits Requested Visits Authorized [id number] Authorized Auto-Generat ed Referral 02/25/2023 02/25/2024 1 1 * Transition of Care (Routine) - Ref Not Required Specialty Diagnoses / Procedures Referred By Neno contreras Referred To Contact Neurosurgery Diagnoses TIA (transient ischemic attack) Venous angioma Paroxysmal A-fib (HCC) Elevated LDL cholesterol level Sleep apnea-like behavior Procedures CONSULT TO NEUROSURGERY Rosendo Martinez Jr., MD [address] [address] Referral ID Status Reason Start Date Expiration Date Visits Requested Visits Authorized [id number] Ref Not Required PCP Requested Referral 02/25/2023 05/26/2023 3 3 [facility] for referral (narrative)* Diagnostic Procedure Only (Routine) - Pending Review Specialty Diagnoses / Procedures Referred By Neno contreras Referred To Contact BR IMAGING Diagnoses Screening mammogram for breast cancer Procedures TIFFANIE SCREENING W ADITYA SCREENING DIGITAL BREAST TOMOSYNTHESIS BI SCREENING MAMMOGRAPHY BI 2-VIEW BREAST INC Rosendo Barboza MD [address] [place] [address] [facility] [address] [place] [address] Referral ID Status Reason Start Date Expiration Date Visits Requested Visits Authorized [id number] Pending Review Auto-Generat ed Referral 03/29/2023 04/27/2024 1 1 [facility] for referral (narrative)* Diagnostic Procedure Only (Routine) - New Request Specialty Diagnoses / Procedures Referred By Neno contreras Referred To Contact BR IMAGING Diagnoses Visit for screening mammogram Procedures TIFFANIE SCREENING W ADITYA SCREENING DIGITAL BREAST TOMOSYNTHESIS BI SCREENING MAMMOGRAPHY BI 2-VIEW BREAST INC Rosendo Barboza MD [address] [place] [address] [facility] [address] [place] [address] Referral ID Status Reason Start Date Expiration Date Visits Requested Visits Authorized [id number] New Request Auto-Generat ed Referral 04/30/2024 05/30/2025 1 1 [facility] for referral (narrative)* Diagnostic Procedure Only (Urgent) - Closed Specialty Diagnoses / Procedures Referred By Contac t Referred To Contact XR IMAGING Diagnoses Acute pain of right shoulder Procedures XR SHOULDER GENERAL 3V OR MORE AP/TRUE AP/OTHER RIGHT RADEX SHOULDER COMPLETE MINIMUM 2 VIEWS Mary Alejandro APRN.STUDY ABROAD COORDINATOR [address] [place] [address] [place] [address] Referral ID Status Reason Start Date Expiration Date V isits Requested Visits Authorized [id number] Closed Auto-Generate d Referral 10/10/2023 11/08/2024 1 1 [facility] for referral (narrative)* Diagnostic Procedure Only (Routine) - Closed Specialty Diagnoses / Procedures Referred By Contac t Referred To Contact XR IMAGING Diagnoses Foot pain, left Procedures XR FOOT GENERAL 3V AP/LAT/OBL LEFT RADEX FOOT COMPLETE MINIMUM 3 VIEWS Rosendo Brown MD [address] [place] [id number] [place] [address] Referral ID Status Reason Start Date Expiration Date V isits Requested Visits Authorized [id number] Closed Auto-Generate d Referral 04/27/2022 05/27/2023 1 1 [facility] for referral (narrative)No reason for referral information [facility]WSt. [facility] Work Phone: [facility] for visit Narrative* Diagnostic Procedure Only (Urgent) - Closed Specialty Diagnoses / Procedures Referred By Contac t Referred To Contact XR IMAGING Diagnoses Acute pain of right shoulder Procedures XR CLAVICLE 2V RIGHT RADEX CLAVICLE COMPLETE Mary Alejandro APRN.STUDY ABROAD COORDINATOR [address] [place] [address] [place] [address] Referral ID Status Reason Start Date Expiration Date V isits Requested Visits Authorized [id number] Closed Auto-Generate d Referral 10/10/2023 11/08/2024 1 1 [facility] for visit Narrative* Diagnostic Procedure Only (Routine) - Closed Specialty Diagnoses / Procedures Referred By Contac t Referred To Contact XR IMAGING Diagnoses Foot pain, left Procedures XR FOOT GENERAL 3V AP/LAT/OBL LEFT RADEX FOOT COMPLETE MINIMUM 3 VIEWS Rosendo Brown MD [address] [place] [address] [place] [address] Referral ID Status Reason Start Date Expiration Date V isits Requested Visits Authorized [id number] Closed Auto-Generate d Referral 04/27/2022 05/27/2023 1 1 [facility] for visit Narrative* MRI/CT (Routine) - Closed Specialty Diagnoses / Procedures Referred By Contac t Referred To Contact MR IMAGING Diagnoses Cognitive impairment, mild, so stated Procedures MRI BRAIN W QUANT WO IVCON MRI BRAIN BRAIN STEM W/O CONTRAST MATERIAL Taylor Thompson MD [address] [place] [address] Phone: tel: fax: [place] [address] Referral ID Status Reason Start Date Expiration Date V isits Requested Visits Authorized [id number] Closed Auto-Generate d Referral 03/13/2025 05/12/[address] [facility] Summary Purpose Family History No Family History Records Found Relationship Condition Age at Onset Recorded Date/T sam father Coronary artery disease Unknown mother Cerebrovascular accident (CVA) Unknown Diabetes mellitus Unknown sister Cardiac disease Unknown grandmother Coronary artery disease Unknown grandfather Coronary artery disease Unknown Advance Directives No Advanced Directives Records FoundDocuments on File Type Date Recorded Patient Diving Fisher Expl anation Advance Directive(s) 11/06/2018 6:50 AM Advance Directive(s) 05/29/2018 2:26 PM Documents on File Type Date Recorded Patient Diving Fisher Expl anation Advance Directive(s) 11/06/2018 6:50 AM Advance Directive(s) 05/29/2018 2:26 PM Advance Directive Response Recorded Date/ Time Advance Directives No October 21, 2021 11:40am Living Will No February 19, 2022 12:57pm Power of Ship Engineer No February 19 12:57pm Advance Directive Response Recorded Date/ Time Advance Directives No October 21, 2021 11:40am Living Will No January 20, 2023 1 1:08am Power of Ship Engineer No January 20, 2023 11:08am Advance Directive Response Recorded Date/ Time Advance Directives No October 21, 2021 11:40am Living Will No January 20, 2023 4 :06pm Power of Ship Engineer No January 20, 2023 4:06pm Advance Directive Response Recorded Date/ Time Advance Directives No October 21, 2021 11:40am Living Will No March 18, 2023 8 :23am Power of Ship Engineer No March 18, 2023 8:23am Advance Directive Response Recorded Date/ Time Living Will No March 18, 2023 8 :23am Power of Ship Engineer No March 18, 2023 8:23am Advance Directives No October 21, 2021 11:40am Advance Directive Response Recorded Date/ Time Living Will No March 18, 2023 8 :23am Do you have a Healthcare Power of Ship Engineer? No March 18, 2023 8:23am Do you have a Healthcare Power of Ship Engineer? No January 17, 2025 5:20am Advance Directives No October 21, 2021 11:40am Advance Directive Response Recorded Date/ Time Living Will No March 18, 2023 8 :23am Do you have a Healthcare Power of Ship Engineer? No March 18, 2023 8:23am Do you have a Healthcare Power of Ship Engineer? No January 17, 2025 10:14am Advance Directives No October 21, 2021 11:40am Advance Directive Response Recorded Date/ Time Do you have a Healthcare Power of Ship Engineer? No January 17, 2025 10:14am Living Will No March 13, 2025 1 0:43am Do you have a Healthcare Power of Ship Engineer? No March 13, 2025 10:43am Advance Directives [...] (cardiology) TIA (cardiology) TIA UPDATED H&P PER [facility] TACHYCARDIA L[facility] TACHYCARDIA Amb Documentation Urinary [...] EVALUATION HIGH COMPLEX 45 MINS Mehnaz Eduardo APRN.STUDY ABROAD COORDINATOR [address] [place] [address] [facility] [address] [address] Referral ID Status Reason Start Date Expiration Date Visits Requested Visits Authorized [id number] Pending Review Auto-Generat ed Referral 01/19/2023 01/19/2024 1 1 Specialty Diagnoses / Procedures Referred By Neno contreras Referred To Contact Diagnoses Cystocele, midline Recurrent UTI Procedures CONSULT TO URO GYNECOLOGY OFFICE/OUTPATIENT NEW HIGH MDM 60-74 MINUTES Mehnaz Eduardo APRN.STUDY ABROAD COORDINATOR [address] [address] Referral ID Status Reason Start Date Expiration Date Visits Requested Visits Authorized [id number] Authorized PCP Requested Referral Auto-Generate d Referral 01/20/2023 01/20/2024 1 1 Specialty Diagnoses / Procedures Referred By Contac t Referred To Contact Neurology Diagnoses TIA (transient ischemic attack) Procedures CONSULT TO NEUROLOGY OFFICE/OUTPATIENT [facility] 60-74 MINUTES Mary Alejandro APRN.CNP [address] [place] [address] Referral ID Status Reason Start Date Expiration Date Visits Requested Visits Authorized [id number] Authorized PCP Requested Referral 01/25/2023 01/25/2024 1 1 Specialty Diagnoses / Procedures Referred By Contac t Referred To Contact Velvet Patel PA-C [address] [place] [address] Referral ID Status Reason Start Date Expiration Date V isits Requested Visits Authorized [id number] Pending Review 1 1 Specialty Diagnoses / Procedures Referred By Contac t Referred To Contact Diagnoses SARAH (obstructive sleep apnea) Procedures CONSULT TO SLEEP MEDICINE - ADULT OFFICE/OUTPATIENT [facility] 60 MINUTES Velvet Patel PA-C [address] [place] [address] Referral ID Status Reason Start Date Expiration Date Visits Requested Visits Authorized [id number] Authorized PCP Requested Referral 11/24/2023 11/23/2024 1 1 Specialty Diagnoses / Procedures Referred By Contac t Referred To Contact Gerontology Diagnoses Memory impairment Procedures CONSULT TO GERIATRICS OFFICE/OUTPATIENT [facility] 60 MINUTES Rosendo Brown MD [address] [place] [address] Referral ID Status Reason Start Date Expiration Date Visits Requested Visits Authorized [id number] Authorized PCP Requested Referral 10/02/2024 10/02/2025 1 1 Additional Source Comments INFORMATION SOURCE (unrecogn ized section and content) DATE CREATED AUTHOR 03/02/2018 Parul Quiñonez [facility] DATE CREATED AUTHOR AUTHOR'S ORGANIZ ATION 03/07/2018 Parul [facility] DATE CREATED AUTHOR AUTHOR'S ORGANIZ ATION 04/01/2023 [facility] DATE CREATED AUTHOR AUTHOR'S ORGANIZ ATION 11/26/2023 [facility] DATE CREATED AUTHOR AUTHOR'S ORGANIZ ATION 04/01/2025 [facility] DATE CREATED AUTHOR AUTHOR'S ORGANIZ ATION 04/03/2025 [facility] DATE CREATED AUTHOR AUTHOR'S ORGANIZ ATION 04/17/2025 [facility] Source Comments (unrecognize d section and content) In the event this informatio n is protected by the Federal Confidentiality of Alcohol and Drug Abuse Patient Records regulations: The Federal rules restrict any use of the information to criminally investigate or prosecute any alcohol or drug abuse patient.[facility] the event this information is protected by the Federal Confidentiality of Alcohol and Drug Abuse Patient Records regulations: The Federal rules restrict any use of the information to criminally investigate or prosecute any alcohol or drug abuse patient.[facility] the event this information is protected by the Federal Confidentiality of Alcohol and Drug Abuse Patient Records regulations: The Federal rules restrict any use of the information to criminally investigate or prosecute any alcohol or drug abuse patient.[facility] the event this information is protected by the Federal Confidentiality of Alcohol and Drug Abuse Patient Records regulations: The Federal rules restrict any use of the information to criminally investigate or prosecute any alcohol or drug abuse patient.[facility] the event this information is protected by the Federal Confidentiality of Alcohol and Drug Abuse Patient Records regulations: The Federal rules restrict any use of the information to criminally investigate or prosecute any alcohol or drug abuse patient.[facility] the event this information is protected by the Federal Confidentiality of Alcohol and Drug Abuse Patient Records regulations: The Federal rules restrict any use of the information to criminally investigate or prosecute any alcohol or drug abuse patient.[facility] the event this information is protected by the Federal Confidentiality of Alcohol and Drug Abuse Patient Records regulations: The Federal rules restrict any use of the information to criminally investigate or prosecute any alcohol or drug abuse patient.[facility] the event this information is protected by the Federal Confidentiality of Alcohol and Drug Abuse Patient Records regulations: The Federal rules restrict any use of the information to criminally investigate or prosecute any alcohol or drug abuse patient.[facility] the event this information is protected by the Federal Confidentiality of Alcohol and Drug Abuse Patient Records regulations: The Federal rules restrict any use of the information to criminally investigate or prosecute any alcohol or drug abuse patient.[facility] the event this information is protected by the Federal Confidentiality of Alcohol and Drug Abuse Patient Records regulations: The Federal rules restrict any use of the information to criminally investigate or prosecute any alcohol or drug abuse patient.[facility] the event this information is protected by the Federal Confidentiality of Alcohol and Drug Abuse Patient Records regulations: The Federal rules restrict any use of the information to criminally investigate or prosecute any alcohol or drug abuse patient.[facility] Hospital[facility] the event this information is protected by the Federal Confidentiality of Alcohol and Drug Abuse Patient Records regulations: The Federal rules restrict any use of the information to criminally investigate or prosecute any alcohol or drug abuse patient.[facility] HospitalIn the event this information is protected by the Federal Confidentiality of Alcohol and Drug Abuse Patient Records regulations: The Federal rules restrict any use of the information to criminally investigate or prosecute any alcohol or drug abuse patient.[facility] HospitalIn the event this information is protected by the Federal Confidentiality of Alcohol and Drug Abuse Patient Records regulations: The Federal rules restrict any use of the information to criminally investigate or prosecute any alcohol or drug abuse patient.[facility] HospitalIn the event this information is protected by the Federal Confidentiality of Alcohol and Drug Abuse Patient Records regulations: The Federal rules restrict any use of the information to criminally investigate or prosecute any alcohol or drug abuse patient.[facility] HospitalIn the event this information is protected by the Federal Confidentiality of Alcohol and Drug Abuse Patient Records regulations: The Federal rules restrict any use of the information to criminally investigate or prosecute any alcohol or drug abuse patient.[facility] HospitalIn the event this information is protected by the Federal Confidentiality of Alcohol and Drug Abuse Patient Records regulations: The Federal rules restrict any use of the information to criminally investigate or prosecute any alcohol or drug abuse patient.[facility] HospitalIn the event this information is protected by the Federal Confidentiality of Alcohol and Drug Abuse Patient Records regulations: The Federal rules restrict any use of the information to criminally investigate or prosecute any alcohol or drug abuse patient.[facility] HospitalIn the event this information is protected by the Federal Confidentiality of Alcohol and Drug Abuse Patient Records regulations: The Federal rules restrict any use of the information to criminally investigate or prosecute any alcohol or drug abuse patient.[facility] HospitalIn the event this information is protected by the Federal Confidentiality of Alcohol and Drug Abuse Patient Records regulations: The Federal rules restrict any use of the information to criminally investigate or prosecute any alcohol or drug abuse patient.[facility] HospitalIn the event this information is protected by the Federal Confidentiality of Alcohol and Drug Abuse Patient Records regulations: The Federal rules restrict any use of the information to criminally investigate or prosecute any alcohol or drug abuse patient.[facility] HospitalIn the event this information is protected by the Federal Confidentiality of Alcohol and Drug Abuse Patient Records regulations: The Federal rules restrict any use of the information to criminally investigate or prosecute any alcohol or drug abuse patient.[facility] HospitalIn the event this information is protected by the Federal Confidentiality of Alcohol and Drug Abuse Patient Records regulations: The Federal rules restrict any use of the information to criminally investigate or prosecute any alcohol or drug abuse patient.[facility] HospitalIn the event this information is protected by the Federal Confidentiality of Alcohol and Drug Abuse Patient Records regulations: The Federal rules restrict any use of the information to criminally investigate or prosecute any alcohol or drug abuse patient.[facility] HospitalIn the event this information is protected by the Federal Confidentiality of Alcohol and Drug Abuse Patient Records regulations: The Federal rules restrict any use of the information to criminally investigate or prosecute any alcohol or drug abuse patient.[facility] HospitalIn the event this information is protected by the Federal Confidentiality of Alcohol and Drug Abuse Patient Records regulations: The Federal rules restrict any use of the information to criminally investigate or prosecute any alcohol or drug abuse patient.[facility] HospitalIn the event this information is protected by the Federal Confidentiality of Alcohol and Drug Abuse Patient Records regulations: The Federal rules restrict any use of the information to criminally investigate or prosecute any alcohol or drug abuse patient.[facility] HospitalIn the event this information is protected by the Federal Confidentiality of Alcohol and Drug Abuse Patient Records regulations: The Federal rules restrict any use of the information to criminally investigate or prosecute any alcohol or drug abuse patient.[facility] HospitalIn the event this information is protected by the Federal Confidentiality of Alcohol and Drug Abuse Patient Records regulations: The Federal rules restrict any use of the information to criminally investigate or prosecute any alcohol or drug abuse patient.[facility] HospitalIn the event this information is protected by the Federal Confidentiality of Alcohol and Drug Abuse Patient Records regulations: The Federal rules restrict any use of the information to criminally investigate or prosecute any alcohol or drug abuse patient.[facility] HospitalIn the event this information is protected by the Federal Confidentiality of Alcohol and Drug Abuse Patient Records regulations: The Federal rules restrict any use of the information to criminally investigate or prosecute any alcohol or drug abuse patient.[facility] HospitalIn the event this information is protected by the Federal Confidentiality of Alcohol and Drug Abuse Patient Records regulations: The Federal rules restrict any use of the information to criminally investigate or prosecute any alcohol or drug abuse patient.[facility] HospitalIn the event this information is protected by the Federal Confidentiality of Alcohol and Drug Abuse Patient Records regulations: The Federal rules restrict any use of the information to criminally investigate or prosecute any alcohol or drug abuse patient.[facility] HospitalIn the event this information is protected by the Federal Confidentiality of Alcohol and Drug Abuse Patient Records regulations: The Federal rules restrict any use of the information to criminally investigate or prosecute any alcohol or drug abuse patient.[facility] HospitalIn the event this information is protected by the Federal Confidentiality of Alcohol and Drug Abuse Patient Records regulations: The Federal rules restrict any use of the information to criminally investigate or prosecute any alcohol or drug abuse patient.[facility] HospitalIn the event this information is protected by the Federal Confidentiality of Alcohol and Drug Abuse Patient Records regulations: The Federal rules restrict any use of the information to criminally investigate or prosecute any alcohol or drug abuse patient.[facility] HospitalIn the event this information is protected by the Federal Confidentiality of Alcohol and Drug Abuse Patient Records regulations: The Federal rules restrict any use of the information to criminally investigate or prosecute any alcohol or drug abuse patient.[facility] HospitalIn the event this information is protected by the Federal Confidentiality of Alcohol and Drug Abuse Patient Records regulations: The Federal rules restrict any use of the information to criminally investigate or prosecute any alcohol or drug abuse patient.[facility] HospitalIn the event this information is protected by the Federal Confidentiality of Alcohol and Drug Abuse Patient Records regulations: The Federal rules restrict any use of the information to criminally investigate or prosecute any alcohol or drug abuse patient.[facility] HospitalIn the event this information is protected by the Federal Confidentiality of Alcohol and Drug Abuse Patient Records regulations: The Federal rules restrict any use of the information to criminally investigate or prosecute any alcohol or drug abuse patient.[facility] HospitalIn the event this information is protected by the Federal Confidentiality of Alcohol and Drug Abuse Patient Records regulations: The Federal rules restrict any use of the information to criminally investigate or prosecute any alcohol or drug abuse patient.[facility] HospitalIn the event this information is protected by the Federal Confidentiality of Alcohol and Drug Abuse Patient Records regulations: The Federal rules restrict any use of the information to criminally investigate or prosecute any alcohol or drug abuse patient.[facility] HospitalIn the event this information is protected by the Federal Confidentiality of Alcohol and Drug Abuse Patient Records regulations: The Federal rules restrict any use of the information to criminally investigate or prosecute any alcohol or drug abuse patient.[facility] HospitalIn the event this information is protected by the Federal Confidentiality of Alcohol and Drug Abuse Patient Records regulations: The Federal rules restrict any use of the information to criminally investigate or prosecute any alcohol or drug abuse patient.[facility] HospitalIn the event this information is protected by the Federal Confidentiality of Alcohol and Drug Abuse Patient Records regulations: The Federal rules restrict any use of the information to criminally investigate or prosecute any alcohol or drug abuse patient.[facility] HospitalIn the event this information is protected by the Federal Confidentiality of Alcohol and Drug Abuse Patient Records regulations: The Federal rules restrict any use of the information to criminally investigate or prosecute any alcohol or drug abuse patient.[facility] HospitalIn the event this information is protected by the Federal Confidentiality of Alcohol and Drug Abuse Patient Records regulations: The Federal rules restrict any use of the information to criminally investigate or prosecute any alcohol or drug abuse patient.[facility] HospitalIn the event this information is protected by the Federal Confidentiality of Alcohol and Drug Abuse Patient Records regulations: The Federal rules restrict any use of the information to criminally investigate or prosecute any alcohol or drug abuse patient.[facility] HospitalIn the event this information is protected by the Federal Confidentiality of Alcohol and Drug Abuse Patient Records regulations: The Federal rules restrict any use of the information to criminally investigate or prosecute any alcohol or drug abuse patient.[facility] HospitalIn the event this information is protected by the Federal Confidentiality of Alcohol and Drug Abuse Patient Records regulations: The Federal rules restrict any use of the information to criminally investigate or prosecute any alcohol or drug abuse patient.[facility] HospitalIn the event this information is protected by the Federal Confidentiality of Alcohol and Drug Abuse Patient Records regulations: The Federal rules restrict any use of the information to criminally investigate or prosecute any alcohol or drug abuse patient.[facility] HospitalIn the event this information is protected by the Federal Confidentiality of Alcohol and Drug Abuse Patient Records regulations: The Federal rules restrict any use of the information to criminally investigate or prosecute any alcohol or drug abuse patient.[facility] HospitalIn the event this information is protected by the Federal Confidentiality of Alcohol and Drug Abuse Patient Records regulations: The Federal rules restrict any use of the information to criminally investigate or prosecute any alcohol or drug abuse patient.[facility] HospitalIn the event this information is protected by the Federal Confidentiality of Alcohol and Drug Abuse Patient Records regulations: The Federal rules restrict any use of the information to criminally investigate or prosecute any alcohol or drug abuse patient.[facility] HospitalIn the event this information is protected by the Federal Confidentiality of Alcohol and Drug Abuse Patient Records regulations: The Federal rules restrict any use of the information to criminally investigate or prosecute any alcohol or drug abuse patient.[facility] HospitalIn the event this information is protected by the Federal Confidentiality of Alcohol and Drug Abuse Patient Records regulations: The Federal rules restrict any use of the information to criminally investigate or prosecute any alcohol or drug abuse patient.[facility] HospitalIn the event this information is protected by the Federal Confidentiality of Alcohol and Drug Abuse Patient Records regulations: The Federal rules restrict any use of the information to criminally investigate or prosecute any alcohol or drug abuse patient.[facility] HospitalIn the event this information is protected by the Federal Confidentiality of Alcohol and Drug Abuse Patient Records regulations: The Federal rules restrict any use of the information to criminally investigate or prosecute any alcohol or drug abuse patient.[facility] HospitalIn the event this information is protected by the Federal Confidentiality of Alcohol and Drug Abuse Patient Records regulations: The Federal rules restrict any use of the information to criminally investigate or prosecute any alcohol or drug abuse patient.[facility] HospitalIn the event this information is protected by the Federal Confidentiality of Alcohol and Drug Abuse Patient Records regulations: The Federal rules restrict any use of the information to criminally investigate or prosecute any alcohol or drug abuse patient.[facility] HospitalIn the event this information is protected by the Federal Confidentiality of Alcohol and Drug Abuse Patient Records regulations: The Federal rules restrict any use of the information to criminally investigate or prosecute any alcohol or drug abuse patient.[facility] HospitalIn the event this information is protected by the Federal Confidentiality of Alcohol and Drug Abuse Patient Records regulations: The Federal rules restrict any use of the information to criminally investigate or prosecute any alcohol or drug abuse patient.[facility] HospitalIn the event this information is protected by the Federal Confidentiality of Alcohol and Drug Abuse Patient Records regulations: The Federal rules restrict any use of the information to criminally investigate or prosecute any alcohol or drug abuse patient.[facility] HospitalIn the event this information is protected by the Federal Confidentiality of Alcohol and Drug Abuse Patient Records regulations: The Federal rules restrict any use of the information to criminally investigate or prosecute any alcohol or drug abuse patient.[facility] HospitalIn the event this information is protected by the Federal Confidentiality of Alcohol and Drug Abuse Patient Records regulations: The Federal rules restrict any use of the information to criminally investigate or prosecute any alcohol or drug abuse patient.[facility] HospitalIn the event this information is protected by the Federal Confidentiality of Alcohol and Drug Abuse Patient Records regulations: The Federal rules restrict any use of the information to criminally investigate or prosecute any alcohol or drug abuse patient.[facility] HospitalIn the event this information is protected by the Federal Confidentiality of Alcohol and Drug Abuse Patient Records regulations: The Federal rules restrict any use of the information to criminally investigate or prosecute any alcohol or drug abuse patient.[facility] HospitalIn the event this information is protected by the Federal Confidentiality of Alcohol and Drug Abuse Patient Records regulations: The Federal rules restrict any use of the information to criminally investigate or prosecute any alcohol or drug abuse patient.[facility] HospitalIn the event this information is protected by the Federal Confidentiality of Alcohol and Drug Abuse Patient Records regulations: The Federal rules restrict any use of the information to criminally investigate or prosecute any alcohol or drug abuse patient.[facility] HospitalIn the event this information is protected by the Federal Confidentiality of Alcohol and Drug Abuse Patient Records regulations: The Federal rules restrict any use of the information to criminally investigate or prosecute any alcohol or drug abuse patient.[facility] HospitalIn the event this information is protected by the Federal Confidentiality of Alcohol and Drug Abuse Patient Records regulations: The Federal rules restrict any use of the information to criminally investigate or prosecute any alcohol or drug abuse patient.[facility] HospitalIn the event this information is protected by the Federal Confidentiality of Alcohol and Drug Abuse Patient Records regulations: The Federal rules restrict any use of the information to criminally investigate or prosecute any alcohol or drug abuse patient.[facility] HospitalIn the event this information is protected by the Federal Confidentiality of Alcohol and Drug Abuse Patient Records regulations: The Federal rules restrict any use of the information to criminally investigate or prosecute any alcohol or drug abuse patient.[facility] HospitalIn the event this information is protected by the Federal Confidentiality of Alcohol and Drug Abuse Patient Records regulations: The Federal rules restrict any use of the information to criminally investigate or prosecute any alcohol or drug abuse patient.[facility] HospitalIn the event this information is protected by the Federal Confidentiality of Alcohol and Drug Abuse Patient Records regulations: The Federal rules restrict any use of the information to criminally investigate or prosecute any alcohol or drug abuse patient.[facility] HospitalIn the event this information is protected by the Federal Confidentiality of Alcohol and Drug Abuse Patient Records regulations: The Federal rules restrict any use of the information to criminally investigate or prosecute any alcohol or drug abuse patient.[facility] HospitalIn the event this information is protected by the Federal Confidentiality of Alcohol and Drug Abuse Patient Records regulations: The Federal rules restrict any use of the information to criminally investigate or prosecute any alcohol or drug abuse patient.[facility] HospitalIn the event this information is protected by the Federal Confidentiality of Alcohol and Drug Abuse Patient Records regulations: The Federal rules restrict any use of the information to criminally investigate or prosecute any alcohol or drug abuse patient.[facility] HospitalIn the event this information is protected by the Federal Confidentiality of Alcohol and Drug Abuse Patient Records regulations: The Federal rules restrict any use of the information to criminally investigate or prosecute any alcohol or drug abuse patient.[facility] Reason for Visit (unrecogniz ed section and content) Reason Comments Thigh Pain left thigh pain x sa tur Reason Comments Results Reason Comments Radiology US Specialty Diagnoses / Procedures Referred By Contac t Referred To Contact US IMAGING Diagnoses Anterior leg pain, left Procedures US DVT LOWER LT DUP-SCAN XTR VEINS UNILATERAL/LIMITED STUDY Brock Avelar MD [address] [place] [address] Us Imaging Referral ID Status Reason Start Date Expiration Date V isits Requested Visits Authorized [id number] Closed Auto-Generate d Referral 02/08/2022 03/10/2023 1 [...] Comments Patient Update Reason Comments Hospital F/U [facility] discharged 2022 Dysarthria and right hand weakness Reason Comments Difficulty Urinating Reason Comments UTI Frequency, burning s tarted this morning Reason Comments New Patient Specialty Diagnoses / Procedures Referred By Contac t Referred To Contact Neurology Diagnoses TIA (transient ischemic attack) Procedures CONSULT TO NEUROLOGY OFFICE/OUTPATIENT [facility] 60-74 MINUTES Mary Alejandro APRN.CNP [address] [place] [address] Referral ID Status Reason Start Date Expiration Date V isits Requested Visits Authorized [id number] Closed PCP Requested Referral 01/25/2023 01/25/2024 1 1 Reason Comments Shade Classifier - Other Reason Comments Urinary Problem Pt [...] Memory impairment Procedures CONSULT TO GERIATRICS OFFICE/OUTPATIENT [facility] 60 MINUTES Rosendo Brown MD [address] [place] [address] Phone: tel: fax: Referral ID Status Reason Start Date Expiration Date V isits Requested Visits Authorized [id number] Closed PCP Requested Referral 10/02/2024 10/02/2025 1 [...] Care Teams (unrecognized sec tion and content) Video Systems Engineer Relationship Specialty Start Date End Date Rosendo Brown MD [address] [place], [place] [address] PCP - General Family Practice 03/18/15 Video Systems Engineer Relationship Specialty Start Date End Date Rosendo Brown MD [address] [place], [place] [id number] PCP - General Family Practice 03/18/15 Video Systems Engineer Relationship Specialty Start Date End Date Rosendo Brown MD [address] [place], [place] [id number] PCP - General Family Practice 03/18/15 Video Systems Engineer Relationship Specialty Start Date End Date Rosendo Brown MD [address] [place], [place] [address] PCP - General Family Practice 03/18/15 Video Systems Engineer Relationship Specialty Start Date End Date Rosendo Brown MD [address] [place] [address] PCP - General Family Practice 03/18/15 Video Systems Engineer Relationship Specialty Start Date End Date Rosendo Brown MD [address] [facility] [place] [place] [address] PCP - General Family Practice 03/18/15 Video Systems Engineer Relationship Specialty Start Date End Date Rosendo Brown MD [address] [facility] [place] [place] [address] PCP - General Family Practice 03/18/15 Video Systems Engineer Relationship Specialty Start Date End Date Rosendo Brown MD [address] [facility] [place] [place] [address] PCP - General Family Practice 03/18/15 Video Systems Engineer Relationship Specialty Start Date End Date Rosendo Brown MD [address] [facility] [place] [place] [address] PCP - General Family Medicine 03/18/15 Video Systems Engineer Relationship Specialty Start Date End Date Rosendo Brown MD [address] [facility] [place] [place] [address] PCP - General Family Medicine 03/18/15 Video Systems Engineer Relationship Specialty Start Date End Date Rosendo Brown MD [address] [facility] [place] [place] [address] PCP - General Family Medicine 03/18/15 Video Systems Engineer Relationship Specialty Start Date End Date Rosendo Brown MD [address] [facility] [place] [address] PCP - General Family Medicine 03/18/15 Video Systems Engineer Relationship Specialty Start Date End Date Rosendo Brown MD [address] [facility] [place] [address] PCP - General Family Medicine 03/18/15 Video Systems Engineer Relationship Specialty Start Date End Date Rosendo Brown MD [address] [facility] [place] [place] [address] PCP - General Family Medicine 03/18/15 Video Systems Engineer Relationship Specialty Start Date End Date Rosendo Brown MD [address] [place] [address] PCP - General Family Medicine 03/18/15 Video Systems Engineer Relationship Specialty Start Date End Date Rosendo Brown MD [address] [place] [address] PCP - General Family Medicine 03/18/15 Team [...] DO Admit Provider, Attending Provide r Active Video Systems Engineer Relationship Specialty Start Date End Date Rosendo Brown MD [address] [place] [address] PCP - General Family Medicine 03/18/15 Video Systems Engineer Relationship Specialty Start Date End Date Rosendo Brown MD [address] [place] [address] PCP - General Family Medicine 03/18/15 Video Systems Engineer Relationship Specialty Start Date End Date Rosendo Brown MD [address] [place] [address] PCP - General Family Medicine 03/18/15 Video Systems Engineer Relationship Specialty Start Date End Date Rosendo Brown MD [address] [place] [address] PCP - General Family Medicine 03/18/15 Team Status: Active Member Role Status Dates Dr. Rosendo Brown MD Primary Care Provider Active Dr. Cayetano Marie MD Attending Provider Active Team Status: Inactive Member Role Status Dates Dr. Rosendo Brown MD Primary Care Provider, Referring Provider Active Antonio San SALES AGENT [employer]IVE [employer]ICE, SALES AGENT PR[employer]ECTIVE SERVICE-C Attending Provider Active Team Status: Active Member Role Status Dates Dr. Rosendo Brown MD Primary Care Provider Active Antonio San SALES AGENT PROTECTIVE SERVICE, SALES AGENT PROTECTIVE SERVICE-C Referring Provider, Other Provide r Active Dr. Cayetano Marie MD Attending Provider Active Team Status: Active Member Role Status Dates Dr. Rosendo Brown MD Primary Care Provider Active Antonio San SALES AGENT PROTECTIVE SERVICE, SALES AGENT PROTECTIVE SERVICE-C Attending Provider Active Team Status: Inactive Member [...] MD Primary Care Provider Active Antonio San SALES AGENT PROTECTIVE SERVICE, SALES AGENT PROTECTIVE SERVICE-C Attending Provider, Referring Pro vider Active Video Systems Engineer Relationship Specialty Start Date End Date Rosendo Brown MD [address] [place] [address] PCP - General Family Medicine 03/18/15 Team Status: Inactive Member Role Status Dates Dr. Rosendo Brown MD Primary Care Provider Active Dr. Susana Ayala MD Attending Provider, Referring P rovider Active Video Systems Engineer Relationship Specialty Start Date End Date Rosendo Brown MD [address] [place] [address] PCP - General Family Medicine 03/18/15 Video Systems Engineer Relationship Specialty Start Date End Date Rosendo Brown MD [address] [place] [address] PCP - General Family Medicine 03/18/15 Video Systems Engineer Relationship Specialty Start Date End Date Rosendo Brown MD [address] [place] [id number] PCP - General Family Medicine 03/18/15 Video Systems Engineer Relationship Specialty Start Date End Date Rosendo Brown MD [address] [place] [id number] PCP - General Family Medicine 03/18/15 Video Systems Engineer Relationship Specialty Start Date End Date Rosendo Brown MD [address] [facility] [place] [address] PCP - General Family Medicine 03/18/15 Video Systems Engineer Relationship Specialty Start Date End Date Rosendo Brown MD [address] [facility] [place] [address] PCP - General Family Medicine 03/18/15 Video Systems Engineer Relationship Specialty Start Date End Date Rosendo Brown MD [address] [facility] [place] [address] PCP - General Family Medicine 03/18/15 Team Status: Inactive Member Role Status Dates Dr. Rosendo Brown MD Primary Care Provi lupillo, Attending Provider, Referring Provider Active Video Systems Engineer Relationship Specialty Start Date End Date Rosendo Brown MD [address] [place] [address] PCP - General Family Medicine 03/18/15 Video Systems Engineer Relationship Specialty Start Date End Date Rosendo Brown MD [address] [place], [place] [address]2851 PCP - General Family Medicine 03/18/15 Video Systems Engineer Relationship Specialty Start Date End Date Rosedno Brown MD [address] [facility] [place] [address] PCP - General Family Medicine 03/18/15 Video Systems Engineer Relationship Specialty Start Date End Date Rosendo Brown MD [address] [facility] [place] [address] PCP - General Family Medicine 03/18/15 Team Status: Inactive Member Role Status Dates Dr. Rosendo Brown MD Primary Care Provider, Referring Provider Active Dr. Lawrence David DO Attending Provider Active Team Status: Inactive Member Role Status Dates Dr. Rosendo Brown MD Primary Care Provider Active Dr. Lawrence David DO Attending Provider, Referring Provider Active Video Systems Engineer Relationship Specialty Start Date End Date Rosendo Brown MD [address] [place], [place] [address]861 PCP - General Family Medicine 03/18/15 Video Systems Engineer Relationship Specialty Start Date End Date Rosendo Brown MD [address] [place], [place] 034391 PCP - General Family Medicine 03/18/15 Video Systems Engineer Relationship Specialty Start Date End Date Rosendo Brown MD [address] [place] [address] PCP - General Family Medicine 03/18/15 Video Systems Engineer Relationship Specialty Start Date End Date Rosendo Brown MD [address] [place], [place] [address]801 PCP - General Family Medicine 03/18/15 Video Systems Engineer Relationship Specialty Start Date End Date Rosendo Brown MD [address] [place] [address] PCP - General Family Medicine 03/18/15 Video Systems Engineer Relationship Specialty Start Date End Date Rosendo Brown MD [address] [place], [place] 732861 PCP - General Family Medicine 03/18/15 Video Systems Engineer Relationship Specialty Start Date End Date Rosendo Brown MD [address] [place], [place] [address]001 PCP - General Family Medicine 03/18/15 Video Systems Engineer Relationship Specialty Start Date End Date Rosendo Brown MD [address] [place], [place] 928291 PCP - General Family Medicine 03/18/15 Video Systems Engineer Relationship Specialty Start Date End Date Rosendo Brown MD [address] [place], [place] 362951 PCP - General Family Medicine 03/18/15 Video Systems Engineer Relationship Specialty Start Date End Date Rosendo Brown MD [address] [place], [place] 836351 PCP - General Family Medicine 03/18/15 Video Systems Engineer Relationship Specialty Start Date End Date Rosendo Brown MD [address] [place] [address] PCP - General Family Medicine 03/18/15 Mary Alejandro, COUNTER TENDER.STUDY ABROAD COORDINATOR [address] [place] [address] [facility] 08/20/24 Angelica Ivan APRN.STUDY ABROAD COORDINATOR [address] [place], [place] 512981 [facility] 08/20/24 Video Systems Engineer Relationship Specialty Start Date End Date Rosendo Brown MD [address] [place], [place] 945001 PCP - General Family Medicine 03/18/15 Mary Alejandro COUNTER TENDER.STUDY ABROAD COORDINATOR [address] [place], [place] 196411 [facility] 08/20/24 Angelica Ivan COUNTER TENDER.STUDY ABROAD COORDINATOR [address] [place] [address] [facility] 08/20/24 Video Systems Engineer Relationship Specialty Start Date End Date Rosendo Brown MD [address] [place] [address] PCP - General Family Medicine 03/18/15 Mary Alejandro APRN.STUDY ABROAD COORDINATOR [address] [facility] [place] [address] [facility] 08/20/24 Angelica Ivan COUNTER TENDER.STUDY ABROAD COORDINATOR [address] [place] [address] [facility] 08/20/24 Video Systems Engineer Relationship Specialty Start Date End Date Rosendo Brown MD [address] [place] [address] PCP - General Family Medicine 03/18/15 Mary Alejandro COUNTER TENDER.STUDY ABROAD COORDINATOR [address] [place] [address] [facility] 08/20/24 Angelica Ivan COUNTER TENDER.STUDY ABROAD COORDINATOR [address] [facility] [place] [address] [facility] 08/20/24 Video Systems Engineer Relationship Specialty Start Date End Date Rosendo Brown MD [address] [place] [address] PCP - General Family Medicine 03/18/15 Mary Alejandro APRN.STUDY ABROAD COORDINATOR [address] [facility], [place] [address] [facility] 08/20/24 Angelica Ivan APRN.STUDY ABROAD COORDINATOR [address] [facility] [place] [address] [facility] 08/20/24 Video Systems Engineer Relationship Specialty Start Date End Date Rosendo Brown MD [address] [facility], [place] 58[address] PCP - General Family Medicine 03/18/15 Mary Alejandro APRN.STUDY ABROAD COORDINATOR [address] [facility] [place] [address] [facility] 08/20/24 Angelica Ivan APRN.STUDY ABROAD COORDINATOR [address] [facility], [place] [address] [facility] 08/20/24 Team Status: Inactive Member Role Status Dates Dr. Rosendo Brown MD Primary Care Provider Active Start: July 26, 2024 End: July 26, 2024 Dr. Rosendo Brown MD Referring Provider Active Start: July 26, 2024 End: July 26, 2024 Antonio San SALES AGENT PROTECTIVE SERVICE, SALES AGENT PROTECTIVE SERVICE-C Attending Provider Active S tart: July 26, 2024 End: July 26, 2024 Team Status: Inactive Member Role Status Dates Dr. Rosendo Brown MD Primary Care Provider Active Start: July 26, 2024 End: July 26, 2024 Antonio San SALES AGENT PROTECTIVE SERVICE, SALES AGENT PROTECTIVE SERVICE-C Attending Provider Active S tart: July 26, 2024 End: July 26, 2024 Antonio San SALES AGENT PROTECTIVE SERVICE, SALES AGENT PROTECTIVE SERVICE-C Referring Provider Active S tart: July 26, 2024 End: July 26, 2024 Team Status: Inactive Member Role Status Dates Dr. Rosendo Brown MD Primary Care Provider Active Start: August 20, 2024 End: August 20, 2024 Antonio San SALES AGENT PROTECTIVE SERVICE, SALES AGENT PROTECTIVE SERVICE-C Attending Provider Active S tart: August 20, 2024 End: August 20, 2024 Antonio San SALES AGENT PROTECTIVE SERVICE, SALES AGENT PROTECTIVE SERVICE-C Referring Provider Active S tart: August 20, [...] 2024 End: November 09, 2024 Antonio San SALES AGENT PROTECTIVE SERVICE, SALES AGENT PROTECTIVE SERVICE-C Attending Provider Active S tart: November 09, 2024 End: November 09, 2024 Antonio San SALES AGENT PROTECTIVE SERVICE, SALES AGENT PROTECTIVE SERVICE-C Referring Provider Active S tart: November 09, [...] November 09, 2024 End: November 09, 2024 Video Systems Engineer Relationship Specialty Start Date End Date Rosendo Brown MD [address] [place], [place] [address]9031 PCP - General Family Medicine 03/18/15 Mary Alejandro, COUNTER TENDER.STUDY ABROAD COORDINATOR [address] [place], [place] [address] [facility] 08/20/24 Angelica Ivan COUNTER TENDER.STUDY ABROAD COORDINATOR [address] [place], [place] [address]80[address] [facility] 08/20/24 Video Systems Engineer Relationship Specialty Start Date End Date Rosendo Brown MD [address] [place] [address] PCP - General Family Medicine 03/18/15 Mary Alejandro APRN.STUDY ABROAD COORDINATOR [address] [place] [address] [facility] Angelica Ivan APRN.STUDY ABROAD COORDINATOR [address] [place] [address] [facility] Video Systems Engineer Relationship Specialty Start Date End Date Rosendo Brown MD [address] [place] [address] PCP - General Family Medicine 03/18/15 Mary Alejandro APRN.STUDY ABROAD COORDINATOR [address] [place] [address] [facility] 08/20/24 Angelica Ivan COUNTER TENDER.STUDY ABROAD COORDINATOR [address] [place] [address] [facility] 08/[facility]24 Team Status: Active Member Role Status Dates Dr. Rosendo Brown MD Primary Care Provider Active Team Status: Inactive Member Role Status Dates Dr. Rosendo Brown MD Primary Care Provider Active Start: January 16, 2025 End: January 16, 2025 Dr. Rosendo Brown MD Referring Provider Active Start: January 16, 2025 End: January 16, 2025 Antonio San SALES AGENT PROTECTIVE SERVICE, SALES AGENT PROTECTIVE SERVICE-C Attending Provider Active S tart: January 16, 2025 End: January 16, 2025 Team Status: Active Member Role Status Dates Dr. Rosendo Brown MD Primary Care Provider Active Start: January 16, 2025 Antonio San SALES AGENT PROTECTIVE SERVICE, SALES AGENT PROTECTIVE SERVICE-C Attending Provider Active S tart: January 16, 2025 Antonio San SALES AGENT PROTECTIVE SERVICE, SALES AGENT PROTECTIVE SERVICE-C Referring Provider Active S tart: January 16, [...] 2025 End: January 16, 2025 Antonio San SALES AGENT PROTECTIVE SERVICE, SALES AGENT PROTECTIVE SERVICE-C Attending Provider Active S tart: January 16, 2025 End: January 16, 2025 Antonio San SALES AGENT PROTECTIVE SERVICE, SALES AGENT PROTECTIVE SERVICE-C Referring Provider Active S tart: January 16, [...] 2025 End: January 21, 2025 Antonio San SALES AGENT PROTECTIVE SERVICE, SALES AGENT PROTECTIVE SERVICE-C Attending Provider Active S tart: January 21, 2025 End: January 21, 2025 Team Status: Active Member Role Status Dates Dr. Rosendo Brown MD Primary Care Provider Active Start: January 21, 2025 Antonio San SALES AGENT PROTECTIVE SERVICE, SALES AGENT PROTECTIVE SERVICE-C Attending Provider Active S tart: January 21, 2025 Antonio San SALES AGENT PROTECTIVE SERVICE, SALES AGENT PROTECTIVE SERVICE-C Referring Provider Active S tart: January 21, [...] 2025 End: January 21, 2025 Antonio San SALES AGENT PROTECTIVE SERVICE, SALES AGENT PROTECTIVE SERVICE-C Attending Provider Active S tart: January 21, 2025 End: January 21, 2025 Antonio San SALES AGENT PROTECTIVE SERVICE, SALES AGENT PROTECTIVE SERVICE-C Referring Provider Active S tart: January 21, 2025 End: January 21, 2025 Video Systems Engineer Relationship Specialty Start Date End Date Rosendo Brown MD [address] [facility], [place] [id number] PCP - General Family Medicine 03/18/15 Mary Alejandro, COUNTER TENDER.STUDY ABROAD COORDINATOR [address] [facility], [place] [address] [facility] 08/20/24 Angelica Ivan COUNTER TENDER.STUDY ABROAD COORDINATOR [address] [facility], [place] [id number] [facility] 08/20/24 Team Status: Inactive Member Role Status Dates Dr. Rosendo Brown MD Primary Care Provider Active Start: January 28, 2025 End: January 28, 2025 Dr. Rosendo Brown MD Referring Provider Active Start: January 28, 2025 End: January 28, 2025 Antonio San SALES AGENT PROTECTIVE SERVICE, SALES AGENT PROTECTIVE SERVICE-C Attending Provider Active S tart: January 28, 2025 End: January 28, 2025 Video Systems Engineer Relationship Specialty Start Date End Date Rosendo Brown MD [address] [facility], [place] [address] PCP - General Family Medicine 03/18/15 Mary Alejandro, COUNTER TENDER.STUDY ABROAD COORDINATOR [address] [facility], [place] [id number] [facility] 08/20/24 Angelica Ivan APRN.STUDY ABROAD COORDINATOR [address] [place], [place] [address] [facility] 08/20/24 Team Status: Inactive Member Role Status [...] 2025 End: February 12, 2025 Antonio San SALES AGENT PROTECTIVE SERVICE, SALES AGENT PROTECTIVE SERVICE-C Attending Provider Active S tart: February 12, 2025 End: February 12, 2025 Team Status: Inactive Member Role Status Dates Dr. Rosendo Brown MD Primary Care Provider Active Start: February 18, 2025 End: February 18, 2025 Antonio San SALES AGENT PROTECTIVE SERVICE, SALES AGENT PROTECTIVE SERVICE-C Attending Provider Active S tart: February 18, 2025 End: February 18, 2025 Antonio San SALES AGENT PROTECTIVE SERVICE, SALES AGENT PROTECTIVE SERVICE-C Referring Provider Active S tart: February 18, 2025 End: February 18, 2025 Video Systems Engineer Relationship Specialty Start Date End Date Rosendo Brown MD [address] [place], [place] [address] PCP - General Family Medicine 03/18/15 Mary Alejandro APRN.STUDY ABROAD COORDINATOR [address] [place], [place] [address] [facility] 08/20/24 Angelica Ivan COUNTER TENDER.STUDY ABROAD COORDINATOR [address] [place] [address] [facility] 08/20/24 Video Systems Engineer Relationship Specialty Start Date End Date Rosendo Brown MD [address] [place] [address] PCP - General Family Medicine 03/18/15 Mary Alejandro APRN.STUDY ABROAD COORDINATOR [address] [place] [address] [facility] 08/20/24 Angelica Ivan APRN.STUDY ABROAD COORDINATOR [address] [place] [address] [facility] 08/20/24 Team Status: Active Member Role/Relationship Status Dates Dr. Rosendo Brown MD Primary Care Provider Active Team Status: Inactive Member Role/Relationship Status Dates Dr. Rosendo Brown MD Primary Care Provider Active Start: January 16, 2025 End: January 16, 2025 Dr. Rosendo Brown MD Referring Provider Active Start: January 16, 2025 End: January 16, 2025 Antonio San SALES AGENT PROTECTIVE SERVICE, SALES AGENT PROTECTIVE SERVICE-C Attending Provider Active S tart: January 16, 2025 End: January 16, 2025 Team Status: Inactive Member Role/Relationship Status Dates Dr. Rosendo Brown MD Primary Care Provider Active Start: January 16, 2025 End: January 16, 2025 Antonio San SALES AGENT PROTECTIVE SERVICE, SALES AGENT PROTECTIVE SERVICE-C Attending Provider Active S tart: January 16, 2025 End: January 16, 2025 Antonio San SALES AGENT PROTECTIVE SERVICE, SALES AGENT PROTECTIVE SERVICE-C Referring Provider Active S tart: January 16, [...] 2025 End: January 21, 2025 Antonio San SALES AGENT PROTECTIVE SERVICE, SALES AGENT PROTECTIVE SERVICE-C Attending Provider Active S tart: January 21, 2025 End: January 21, 2025 Team Status: Inactive Member Role/Relationship Status Dates Dr. Rosendo Brown MD Primary Care Provider Active Start: January 21, 2025 End: January 21, 2025 Antonio San SALES AGENT PROTECTIVE SERVICE, SALES AGENT PROTECTIVE SERVICE-C Attending Provider Active S tart: January 21, 2025 End: January 21, 2025 Antonio San SALES AGENT PROTECTIVE SERVICE, SALES AGENT PROTECTIVE SERVICE-C Referring Provider Active S tart: January 21, [...] 2025 End: January 28, 2025 Antonio San SALES AGENT PROTECTIVE SERVICE, SALES AGENT PROTECTIVE SERVICE-C Attending Provider Active S tart: January 28, [...] 2025 End: February 12, 2025 Antonio San SALES AGENT PROTECTIVE SERVICE, SALES AGENT PROTECTIVE SERVICE-C Attending Provider Active S tart: February 12, 2025 End: February 12, 2025 Team Status: Inactive Member Role/Relationship Status Dates Dr. Rosendo Brown MD Primary Care Provider Active Start: February 18, 2025 End: February 18, 2025 Antonio San SALES AGENT PROTECTIVE SERVICE, SALES AGENT PROTECTIVE SERVICE-C Attending Provider Active S tart: February 18, 2025 End: February 18, 2025 Antonio San SALES AGENT PROTECTIVE SERVICE, SALES AGENT PROTECTIVE SERVICE-C Referring Provider Active S tart: February 18, [...] March 13, 2025 End: March 13, 2025 Video Systems Engineer Relationship Specialty Start Date End Date Rosendo Brown MD [address] [place], [place] [address] PCP - General Family Medicine 03/18/15 Mary Alejandro APRN.STUDY ABROAD COORDINATOR [address] [facility] [place] [address] [facility] 08/20/24 Angelica Ivan COUNTER TENDER.STUDY ABROAD COORDINATOR [address] [place] [address] [facility]/24 Harmony Callahan MD [address] [place] [address] Surgeon Cardiac Surg 03/13/25 Cayetano Marie MD [address] [place] [address] Referring Cardiology 03/13/25 Video Systems Engineer Relationship Specialty Start Date End Date Rosendo Brown MD [address] [place] [address] PCP - General Family Medicine 03/18/15 Mary Alejandro, COUNTER TENDER.STUDY ABROAD COORDINATOR [address] [place] [address] [facility] 08/20/24 Angelica Ivan, COUNTER TENDER.STUDY ABROAD COORDINATOR [address] [place] [address] [facility] 08/20/24 Harmony Callahan MD [address] [place] [address] Surgeon Cardiac Surg 03/13/25 Cayetano Marie MD [address] [place] [address] Referring Cardiology 03/13/25 Video Systems Engineer Relationship Specialty Start Date End Date Rosendo Brown MD [address] [place] [address] PCP - General Family Medicine 03/18/15 Mary Alejandro APRN.STUDY ABROAD COORDINATOR [address] [place] [address] [facility] 08/20/24 Angelica Ivan COUNTER TENDER.STUDY ABROAD COORDINATOR [address] [place] [address] [facility] 08/20/24 Harmony Callahan MD [address] [place] [address] Surgeon Cardiac Surg 03/13/25 Cayetano Marie MD [address] [place] [phone] Referring Cardiology 03/13/25 Video Systems Engineer Relationship Specialty Start Date End Date Rosendo Brown MD [address] [place] [address] PCP - General Family Medicine 03/18/15 Mary Alejandro COUNTER TENDER.STUDY ABROAD COORDINATOR [address] [place] [address] [facility] 08/20/24 Angelica Ivan COUNTER TENDER.STUDY ABROAD COORDINATOR [address] [place], [place] [address] [facility] 08/20/24 Harmony Callahan MD [address] [place] [address] Surgeon Cardiac Surg 03/13/25 Cayetano Marie MD [address] [place] [phone] Referring Cardiology 03/13/25 Team Status: Inactive Member Role/Relationship Status Dates Dr. Rosendo Brown MD Primary Care Provider Active Start: April 01, 2025 End: April 01, 2025 Dr. Rosendo Brown MD Referring Provider Active Start: April 01, 2025 End: April 01, 2025 Dr. Lawrence David DO Attending Provider Active Start: April 01, 2025 End: April 01, 2025 Video Systems Engineer Relationship Specialty Start Date End Date Rosendo Brown MD [address] [place], [place] [id number] PCP - General Family Medicine 03/18/15 Mary Alejandro APRN.STUDY ABROAD COORDINATOR [address] [place], [place] [address] [facility] 08/20/24 Angelica Ivan APRN.STUDY ABROAD COORDINATOR [address] [place] [address] [facility] 08/20/24 Harmony Callahan MD [address] [place] [address] Surgeon Cardiac Surg 03/13/25 Cayetano Marie MD [address] [place] [phone] Referring Cardiology 03/13/25 Goals (unrecognized section and [...] BE BASED ON THE PRIMARY CLINICAL RECORDS. [employer] [facility]. provides no warranty or guarantee of the accuracy or completeness of information in this document.
== END | disposition home or self-care (01) ==
LOC: CT 05:56
PROVIDERS: PCP Family Medicine; Referring Provider Internal Medicine Gastroenterology; Visit Provider Internal Medicine Gastroenterology
DX: K90.0 Celiac disease (principal); R19.5 Other fecal abnormalities
CPT/HCPCS: 74177; Q9967

== ENCOUNTER → 2025-06-06 | Outpatient (CLI) | payer MEDICARE, SELFPAY ==
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
[2025-06-06 12:40] VITALS: BP 120/72; PULSE 60
--- NOTE | 2025-06-06 12:40 | CR.ITP_ITS ---
Diagnosis General Information Admitting Diagnosis: Mitral valve replacement Personal Learning Style:: Audio/Visual Barriers to Learning: No Barriers Stage of change r/t lifestyle modifications:: Contemplation Gave educational material for:: Treating Heart Disease, How The Heart Works, What it means to have Heart Disease, How Coronary Artery Disease is Diagnosed, Heart Procedures, What Heart Medications Do, Risk Factors & Modifications, Living an Active Life, Nutrition, Emotions & Heart Disease, Stress Management & Relaxation and Sleep Disorders & Heart Disease Education/Goals Cardiac Rehabilitation Goals Personal Goals: Initial Assessment: Improve management of stress and emotions, Improve energy level, Participate in home exercise program, Improve muscle strength and endurance, Improve diet and eating habits (eat healthier) and Control risk factors (learn risk factor modification) Scale for measuring improvement of personal goals Diagnosis & Disease Process Outcomes/Goals: Pt IDs own risk factors & lifestyle modifications by Session 10, Verbalizes symptoms of angina & response by session 3., Pt independently manages and Other Additional Outcomes/Goals: Plan/Interventions: Assist Pt to ID & engage in lifestyle modification to reduce CVD risk, Instruct on individual risk factors, Review symptoms of angina & emergency actions, Review secondary diagnosis & identify educational needs. and Other see comment 30 day Reassessments:: Not Met 30 day Reassessments:: Not Met 30 day Reassessments:: Not Met 30 day Reassessments:: Not Met Final Reassessments:: Not Met Safety Referral to Physical Therapy: No Referral to [facility] Case Management: No Fall Risk Assessed:: Yes Assistive Devices:: None Exercise - Initial Assessment Visit Date of Eval: 06/06/25 (initial eval ) Mets: Pre-: >3 METS for 30 minutes by discharge, >5 METS for 30 minutes by discharge, >7 METS for 30 minutes by discharge and Unable to meet goal due to: (see comment below) Physician Prescribed Exercise Modalities: Treadmill, Schwinn Airdyne AD-7, SciFit Stepper, AIRTAMEFit Pro-II Ergometer and AIRTAMEFit Lateral Brush Fabrication Supervisor Frequency: 3x/week for 12 weeks [36 sessions] Intensity: 60-80% of age predicted maximum heart rate reserve Duration: 30 - 45 minutes Current METSs:: 3 Target Heart Rate:: 92-107 Resting Blood Pressure: 120/72 EKG Type: SR w/PAC's/ Hx a-fib and short runs of Vtach Outcomes & Goals Goals:: Verbalizes understanding of THR, RPE & goal METS by session 6, Documents in home exercise log/reports 30 min aerobic 5 day/wk by DC, Demonstrates accurate pulse taking by DC and Other additional outcome/goals: see below Intervention & Plan Exercise Program Goals: Instruct on personal THR & RPE, Instruct on MET level & personal MET goal, Show patient to take own pulse /validate performance until accurate, Instruct on home exercise and Other additional plan/int Physical Activity Home Exercise Physical Activity - Home Exercise: Safe Exercise, Warm-up, Self-monitoring, Cool-Down, Home Exercise > 30 min Daily and Sitting Time <3 hours/daily Outcomes & Goals Outcomes/Goals: Demonstrates correct Warm-up/exercise Cool-Down (S3) if = 2.5 METs, Verbalizes symptoms of exercise intolerance by Session 3 (S3), Demonstrate safe equipment use (S3) & follows exercise prescrition (6) and Other: See below Intervention & Plan Plan/Intervention: Instruct warm-up & cool-down if exercising at > 2 METs, Instruct on symptoms of exercise intolerance & actions to take, Instruct & monitor on saf, Assess intial functional capacity & safety risk and Other See below Nutrition - Initial Assessment Program Goals Nutrition Program Goals Patient has diagnosis of Hyperlipidemia (ICD E78)?: Yes Visit Date of Eval: 06/06/25 (initial eval (Nutrition survey score of 4)) Cholesterol/Lipids (Other Core Measures) Determine presence & major risk factors that modify LDL goal: Cigarette smoking, Hypertension or hypertensive medication, Low HDL cholesterol <40 mg/dL*, Family history of premature CHD in Male < 55 years: female <65 yearsFa and Age men > 45 years; women >/= 55 years Outcomes/Goals: Pt IDs own risk factors & lifestyle modifications by Session 10, Verbalizes symptoms of angina & response by session 3., Pt independently manages and Other Additional Outcomes/Goals: Intervention/Plan: Advocate for lipid panel cholesterol medication if applicable, Instruct on personal lipid levels & lipid goals/NCEP guidelines, Instruct on cholesterol and Other additional plan/int Referral to dietitian:: No Diabetes (Other Core Measures) Diabetes Type: Not Applicable Weight Mgt (Other Care) Height: 5 ft 3 in Weight:: 203 lb BMI: 35.9 Diagnosis Overweight/Obesity BMI> 30% ICD-10 E66: Yes Diagnosis High BMI/Morbid Obesity BMI> 35% ICD-10 Z68: No Outcomes/Goals: Pt sets, maintains & shows weight loss goal & trend during rehab and Other additional outcomes/goals Intervention/Plan: Instruct on ideal BMI & set weight loss goal w/patient, Assist pt to ID & incorporate diet changes for weight loss by S9, Refer to Structured Weight Loss program as appropriate, Encourage goal of using 250- 300dcal per session for weight loss and Other additional plan/interventions Healthy Eating Habits Will attend diet classes:: Yes Outcomes/Goals:: Consume diet rich in vegs,fruits,whole grain/high fiber,fish,le an meat, Limit sat/trans fats,cholesterol & added salts & sugars and Other additional outcome/goals: Intervention/Plan:: Assess current eating habits and Other Additional plan/ interventions Education Gave educational materials for:: Signs & symptoms of hypoglycemia, Signs & symptoms of hyperglycemia, Relate diabetes to coronary artery disease and Healthy eating Core - Initial Assessment Visit Date of Eval: 06/06/25 (initial eval ) Medication Compliance Preventative Medication(s):: Statin/lipid, Beta juan and Eliquis H/O mental health issues: depression, anxiety, or addiction?: Yes Doesn’t believe in the benefits of treatment?: No Believes medications are unnecessary or harmful?: No Has a concern about medication side effects?: No Expresses concern over the cost of medications?: No Outcomes/Goals: Verbalizes medications,desired effect & common side effects @ DC, Pt self-reports following medication regimen, Keeps card in wallet w/medications listed by DC and Other additional outcome/goals: Interventions/plans: Instruct on medication effects & side effects, Review medication list w/patient every two weeks, Instruct importance of taking meds as ordered & assist problem solving and Other additional Tobacco Use Tobacco Use: Non-smoker Hypertension Resting Blood Pressure:: 120/72 [place] [employer] Hypertension Guidelines Outcomes/Goals: Able to verbalize/achieve optimal blood pressure <130/80, Incorporates diet changes & exercise for blood pressure control by DC and Other additional outcomes/goals Interventions/plan: Instruct on optimal blood pressure, hypertension & medications, Instruct on effects of sodium, alcohol, stress, exercise &hypertension and Other additional plan/interventions Tobacco Cessation Referral Smoking Cessation Referral:: No Individual Education/Counseling:: No Education Schedule Given:: Yes Psychosocial - Initial Assess VIsit Date of Eval: 06/06/25 (initial eval ) History of previous Mental disease:: Yes History of Emotional Disorders: Anxious and Depression Psychosocial Test Tool Used:: PHQ-9 Questionnaire phq-9 Severity See PHQ-9 Score: 7 Referral to Behavioral Health PS - Interventions: Yes: Attend Stress Management Classes and No: Referral to Physician if PHQ-9 if score is 5-9: (declines) Outcomes/Goals: See list Psychosocial Outcomes/Goals:: ID's personal stressors & 2 strategies to manage stress by discharge and Other Additional outcome/goals: Intervention/Plan: See List Interventions/Plan:: Assess stressors,coping strategies & signs of derpression on admission, Instruct/assist pt to develop coping & personal stress Mgt strategies, Refer to Behavioral Health if appropriate, Refer to Physician if appropriate, Instruct patient to recognize signs & symptoms of depression, Instruct patient to recog and Other additional plan/intervention Patient Health Questionnaire PHQ-9 Screening Initial Assessment: 1. Little interest or pleasure in doing things: Several days 2. Feeling down, depressed, or hopeless: Not at all 3. Trouble falling or staying asleep, or sleeping too much: More than half the days 4. Feeling tired or having little energy: Several days 5. Poor appetite or overeating: More than half the days 6. Feeling bad about yourself -- or that you are a failure or have let yourself or your family down: Not at all 7. Trouble concentrating on things, such as reading the newspaper or watching television: Several days 8. Moving or speaking so slowly that other people could have noticed. Or the opposite - being so fidgety or restless that you have been moving around a lot more than usual: Not at all 9. Thoughts that you would be better off , or of hurting yourself in some way: Not at all Total Score: 7 Self-Efficacy 6-Item Scale Initial Assessment: We would like to know how confident you are in doing certain activities. Please select your confidence level for: Fatigue Select Number: 10 Physical Discomfort or Pain Select Number: 7 Emotional Distress Select Number: 6 Other Symptoms or Health Problems Select Number: 5 Different Tasks and Activities Select Number: 3 Medication Select Number: 5 Total Score:: 6 Nutrition Survey Nutrition Survey Initial: Have you lost >10 lbs over the past 2 months without trying?: Yes Are you following a special diet at home for diabetes, low fat, or low salt?: No Are you interested in meeting with a dietitian for help understanding your diet?: No Do you eat less than 3 meals a day?: Yes Do you eat fatty meats (russell, sausage, ribs, etc), fried foods, desserts, large amounts of salad dressings, margarine, butter, or cheese most days?: No Do you have food allergies? [Enter types in comment field]: No Do you eat in restaurants more than 3 times a week?: No Do you season food with salt, seasoning salt, or garlic salt?: Yes Do you used canned, boxed, frozen meals, or soups, seasoning packets?: Yes Total Score:: 4 Exercise - 30-day Assessment Physician Prescribed Exercise Modalities: Treadmill, Schwinn Airdyne AD-7, SciFit Stepper, SciFit Pro-II Ergometer and SciFit Lateral [place] Exercise - 60-day Assessment Physician Prescribed Exercise Modalities: Treadmill, Schwinn Airdyne AD-7, SciFit Stepper, SciFit Pro-II Ergometer and SciFit Lateral [place] Exercise - 90-day Assessment Physician Prescribed Exercise Modalities: Treadmill, Schwinn Airdyne AD-7, SciFit Stepper, SciFit Pro-II Ergometer and SciFit Lateral Brush Fabrication Supervisor Exercise - Final/Discharge Physician Prescribed Exercise Modalities: Treadmill, Schwinn Airdyne AD-7, SciFit Stepper, SciFit Pro-II Ergometer and SciFit Lateral Brush Fabrication Supervisor Frequency: 3x/week for 12 weeks [36 sessions] Intensity: 60-80% of age predicted maximum heart rate reserve Current METSs:: 3 Target Heart Rate:: 92-107 Nutrition - 30-Day Assessment Weight Mgt (Other Care) Height: 5 ft 3 in Weight:: 203 lb BMI: 35.9 Nutrition - 60-Day Assessment Weight Mgt (Other Care) Height: 5 ft 3 in Weight:: 203 lb BMI: 35.9 Core - Final Assessment Hypertension Resting Blood Pressure:: 120/72 [place] [employer] Hypertension Guidelines Core - 60-Day Assessment Hypertension Resting Blood Pressure:: 120/72 [place] [employer] Hypertension Guidelines Psychosocial - 30-Day Assess Referral to Behavioral Health PS - Interventions: Yes: Attend Stress Management Classes and No: Referral to Physician if PHQ-9 if score is 5-9: (declines) Psychosocial - 60-Day Assess Referral to Behavioral Health PS - Interventions: Yes: Attend Stress Management Classes and No: Referral to Physician if PHQ-9 if score is 5-9: (declines) Psychosocial - 90-Day Assess Referral to Behavioral Health PS - Interventions: Yes: Attend Stress Management Classes and No: Referral to Physician if PHQ-9 if score is 5-9: (declines) Psychosocial - Final Assessmen Psychosocial Test phq-9 Severity See PHQ-9 Score: 7 Referral to Behavioral Health PS - Interventions: Yes: Attend Stress Management Classes and No: Referral to Physician if PHQ-9 if score is 5-9: (declines) Nutrition - 90-Day Assessment Weight Mgt (Other Care) Height: 5 ft 3 in Weight:: 203 lb BMI: 35.9 Nutrition - Final Assessment Program Goals Patient has diagnosis of Hyperlipidemia (ICD E78)?: Yes Weight Mgt (Other Care) Height: 5 ft 3 in Weight:: 203 lb BMI: 35.9
[2025-06-06 12:47] VITALS: BP 120/72
[2025-06-06 12:54] VITALS: BMI 35.9
[2025-06-06 13:21] VITALS: BMI 35.9
== END | disposition home or self-care (01) ==
LOC: CR 12:18
PROVIDERS: PCP Family Medicine; Referring Provider Internal Medicine Cardiovascular Disease; Visit Provider Internal Medicine Cardiovascular Disease
DX: I48.0 Paroxysmal atrial fibrillation (principal); Z98.890 Other specified postprocedural states; Z95.2 Presence of prosthetic heart valve

== ENCOUNTER 2025-06-10 13:50 | Outpatient (RCR) | payer MEDICARE, SELFPAY ==
[2025-06-06 13:21] VITALS: BMI 35.9
== END 2025-06-11 23:59 ==
LOC: CR 13:50
PROVIDERS: PCP Family Medicine; Referring Provider Internal Medicine Cardiovascular Disease; Visit Provider Internal Medicine Cardiovascular Disease
DX: I48.0 Paroxysmal atrial fibrillation (principal); Z95.2 Presence of prosthetic heart valve; Z98.890 Other specified postprocedural states
CPT/HCPCS: 93798

== ENCOUNTER 2025-07-05 13:00 | Outpatient (RCR) | payer MEDICARE, SELFPAY ==
[2025-06-06 13:21] VITALS: BMI 35.9
--- NOTE | 2025-07-02 08:36 | CR.ITP_ITS ---
Exercise - Initial Assessment Visit Session #:: 10 Physician Prescribed Exercise Modalities: Treadmill, SciFit Stepper and SciFit Pro-II Ergometer Nutrition - Initial Assessment Weight Mgt (Other Care) Height: 5 ft 3 in Weight:: 190 lb 8 oz BMI: 33.7 Psychosocial - Initial Assess Referral to Behavioral Health PS - Interventions: Yes: Attend Stress Management Classes Exercise - 30-day Assessment Visit Date of Eval: 07/02/25 Session #:: 10 Physician Prescribed Exercise Modalities: Treadmill, SciFit Stepper and SciFit Pro-II Ergometer Frequency: 3x/week for 12 weeks [36 sessions] Intensity: 60-80% of age predicted maximum heart rate reserve Duration: 30 - 45 minutes Current METSs:: 3.2 Target Heart Rate:: 92-107 Current RPE:: 12-13 Maximum Excercise HR:: 90 Resting Blood Pressure: 122/74 Maximum Exercise Blood Pressure: 132/52 EKG Type: NSR w/ occas PVC/PAC Outcomes & Goals Goals:: Verbalizes understanding of THR, RPE & goal METS by session 6, Documents in home exercise log/reports 30 min aerobic 5 day/wk by DC, Demonstrates acc urate pulse taking by DC and Other additional outcome/goals: see below Intervention & Plan Exercise Program Goals: Instruct on personal THR & RPE, Instruct on MET level & personal MET goal, Show patient to take own pulse /validate performance until accurate, Instruct on home exercise and Other additional plan/int Physical Activity Home Exercise Physical Activity - Home Exercise: Safe Exercise, Warm-up, Self-monitoring, Cool-Down, Home Exercise > 30 min Daily and Sitting Time <3 hours/daily Outcomes & Goals Outcomes/Goals: Demonstrates correct Warm-up/exercise Cool-Down (S3) if = 2.5 METs, Verbalizes symptoms of exercise intolerance by Session 3 (S3), Demonstrate safe equipment use (S3) & follows exercise prescrition (6) and Other: See below Intervention & Plan Plan/Intervention: Instruct warm-up & cool-down if exercising at > 2 METs, Instruct on symptoms of exercise intolerance & actions to take, Instruct & monitor on saf, Assess intial functional capacity & safety risk and Other See below 30-day Reassessments 30 day Reassessments:: Progressing Reassessment Notes & Comments:: Pt oriented to equipment. RPE explained to pt. Pt demonstrates understanding in his daily sessions. Exercise - 60-day Assessment Physician Prescribed Exercise Modalities: Treadmill, SciFit Stepper and SciFit Pro-II Ergometer Exercise - 90-day Assessment Physician Prescribed Exercise Modalities: Treadmill, SciFit Stepper and SciFit Pro-II Ergometer Exercise - Final/Discharge Physician Prescribed Exercise Modalities: Treadmill, SciFit Stepper and SciFit Pro-II Ergometer Nutrition - 30-Day Assessment Program Goals Nutrition Program Goals Patient has diagnosis of Hyperlipidemia (ICD E78)?: Yes Visit Date of Eval: 07/02/25 Session #:: 10 (Nutrition score of 4) Cholesterol/Lipids (Other Core Measures) Determine presence & major risk factors that modify LDL goal: Cigarette smoking, Hypertension or hypertensive medication, Low HDL cholesterol <40 mg/dL*, Family history of premature CHD in Male < 55 years: female <65 yearsFa and Age men > 45 years; women >/= 55 years Outcomes/Goals: Pt IDs own risk factors & lifestyle modifications by Session 10, Verbalizes symptoms of angina & response by session 3., Pt independently manages and Other Additional Outcomes/Goals: Intervention/Plan: Advocate for lipid panel cholesterol medication if applicable, Instruct on personal lipid levels & lipid goals/NCEP guidelines, Instruct on cholesterol and Other additional plan/int Diabetes (Other Core Measures) Diabetes Type: Not Applicable Weight Mgt (Other Care) Height: 5 ft 3 in Weight:: 190 lb 8 oz BMI: 33.7 Diagnosis Overweight/Obesity BMI> 30% ICD-10 E66: Yes Diagnosis High BMI/Morbid Obesity BMI> 35% ICD-10 Z68: No Outcomes/Goals: Pt sets, maintains & shows weight loss goal & trend during rehab and Other additional outcomes/goals Intervention/Plan: Instruct on ideal BMI & set weight loss goal w/patient, Assist pt to ID & incorporate diet changes for weight loss by S9, Refer to Structured Weight Loss program as appropriate, Encourage goal of using 250- 300dcal per session for weight loss and Other additional plan/interventions 30 day Reassessments:: Progressing Reassessment Notes & Comments:: Pt has lost 3 lbs since her first weigh in with us. Healthy Eating Habits Will attend diet classes:: Yes Outcomes/Goals:: Consume diet rich in vegs,fruits,whole grain/high fiber,fish,lean meat, Limit sat/trans fats,cholesterol & added salts & sugars and Other additional outcome/goals: Intervention/Plan:: Assess current eating habits and Other Additional plan/interventions 30-day Reassessments:: Progressing Reassessment Notes & Comments:: Pt is scheduled to attend nutrition classes. Low sodium heart healthy diet encouraged. Education Gave educational materials for:: Signs & symptoms of hypoglycemia, Signs & symptoms of hyperglycemia, Relate diabetes to coronary artery disease and Healthy eating Nutrition - 60-Day Assessment Weight Mgt (Other Care) Height: 5 ft 3 in Weight:: 190 lb 8 oz BMI: 33.7 Core - 30-Day Assessment Visit Date of Eval: 07/02/25 Session #:: 10 Medication Compliance Preventative Medication(s):: Statin/lipid, Beta juan and Eliquis H/O mental health issues: depression, anxiety, or addiction?: Yes Doesn’t believe in the benefits of treatment?: No Believes medications are unnecessary or harmful?: No Has a concern about medication side effects?: No Expresses concern over the cost of medications?: No Outcomes/Goals: Verbalizes medications,desired effect & common side effects @ DC, Pt self-reports following medication regimen, Keeps card in wallet w/medications listed by DC and Other additional outcome/goals: Interventions/plans: Instruct on medication effects & side effects, Review medication list w/patient every two weeks, Instruct importance of taking meds as ordered & assist problem solving and Other additional Tobacco Use Tobacco Use: Non-smoker Hypertension Resting Blood Pressure:: 122/74 [place] [employer] Hypertension Guidelines Peak Exercise Blood Pressure:: 132/52 Outcomes/Goals: Able to verbalize/achieve optimal blood pressure <130/80, Incorporates diet changes & exercise for blood pressure control by DC and Other additional outcomes/goals Interventions/plan: Instruct on optimal blood pressure, hypertension & medications, Instruct on effects of sodium, alcohol, stress, exercise &hypertension and Other additional plan/interventions 30 day Reassessments:: Progressing Reassessment Notes & Comments:: Pt's BP's are within AHA normal limits. Will continue to monitor and report to pt's physician if necessary. Tobacco Cessation Referral Smoking Cessation Referral:: No Individual Education/Counseling:: No Education Schedule Given:: Yes Psychosocial - 30-Day Assess VIsit Date of Eval: 07/02/25 Session #:: 10 History of previous Mental disease:: Yes History of Emotional Disorders: Anxious and Depression Psychosocial Test Tool Used:: [employer] QOL Cardiac and PHQ-9 Questionnaire phq-9 Severity See PHQ-9 Score: 7 Referral to Behavioral Health PS - Interventions: Yes: Attend Stress Management Classes Outcomes/Goals: See list Psychosocial Outcomes/Goals:: ID's personal stressors & 2 strategies to manage stress by discharge and Other Additional outcome/goals: Intervention/Plan: See List Interventions/Plan:: Assess stressors,coping strategies & signs of derpression on admission, Instruct/assist pt to develop coping & personal stress Mgt strategies, Refer to Behavioral Health if appropriate, Refer to Physician if appropriate, Instruct patient to recognize signs & symptoms of depression, Instruct patient to recog and Other additional plan/intervention 30-day Reassessments: 30 day Reassessments:: Progressing Reassessment Notes & Comments:: Pt to attend stress management class. Will reassess every 30 days. Pt is on meds for anxiety and depression. Psychosocial - 60-Day Assess Referral to Behavioral Health PS - Interventions: Yes: Attend Stress Management Classes Outcomes/Goals: See list Psychosocial Outcomes/Goals:: ID's personal stressors & 2 strategies to manage stress by discharge and Other Additional outcome/goals: Psychosocial - 90-Day Assess Referral to Behavioral Health PS - Interventions: Yes: Attend Stress Management Classes Psychosocial - Final Assessmen Referral to Behavioral Health PS - Interventions: Yes: Attend Stress Management Classes Nutrition - 90-Day Assessment Weight Mgt (Other Care) Height: 5 ft 3 in Weight:: 190 lb 8 oz BMI: 33.7 Nutrition - Final Assessment Weight Mgt (Other Care) Height: 5 ft 3 in Weight:: 190 lb 8 oz BMI: 33.7
[2025-07-02 08:55] VITALS: BP 122/74; BMI 33.7
== END 2025-07-12 23:59 ==
LOC: CR 13:00
PROVIDERS: PCP Family Medicine; Referring Provider Internal Medicine Cardiovascular Disease; Visit Provider Internal Medicine Cardiovascular Disease
DX: I48.0 Paroxysmal atrial fibrillation (principal); Z95.2 Presence of prosthetic heart valve; Z98.890 Other specified postprocedural states
CPT/HCPCS: 93798

== ENCOUNTER → 2025-08-22 | Outpatient (CLI) | payer MEDICARE, SELFPAY ==
[2025-07-02 08:55] VITALS: BMI 33.7
--- NOTE | 2025-08-22 12:32 | BI_ITS ---
EXAM: SCRN MAMM (CAD)W/TEJA BILAT DATE: 08/22/2025 CLINICAL HISTORY: F, Age 79 y/o , SCREENING TECHNIQUE: Procedure Code: [id number] Modality: MG Procedure: SCRN MAMM (CAD)W/TEJA BILAT COMPARISON: Prior exam(s) were compared FINDINGS: TISSUE DENSITY: There are scattered areas of fibroglandular density. Bilateral Breast Mammographic Findings: No significant masses, calcifications or other abnormalities are identified. BI/SCRN MAMM (CAD)W/TEJA BILAT IMPRESSION: No mammographic evidence of malignancy. OVERALL FINAL ASSESSMENT BI-RADS 1: NEGATIVE. RECOMMENDATION: Routine annual follow-up in 1 Year Additional Recommendation none A letter with findings and recommendations will be mailed to the patient. Reading Location: [id number]
== END | disposition home or self-care (01) ==
LOC: OPBI 12:31
PROVIDERS: PCP Family Medicine; Referring Provider Family Medicine; Visit Provider Family Medicine
DX: Z12.31 Encounter for screening mammogram for malignant neoplasm of breast (principal)
CPT/HCPCS: 77063; 77067